=== PATIENT | female | born 1950 | race Caucasian/White ===

== ENCOUNTER 2018-01-13 12:18 | Emergency (ER) | payer MEDICAID, SELFPAY ==
[2018-01-13 12:19] VITALS: BP 185/82; PULSE 73; RESP 17; TEMP 36.6; O2SAT 93; BMI 44.6
--- NOTE | 2018-01-13 12:42 | VDLE_ITS ---
Reason For Study: pain RIGHT GSV is normal. CFV is compressible, spontaneous, phasic, competent and demonstrates normal augmentation. FV is compressible, spontaneous, phasic, competent and demonstrates normal augmentation. POP V is compressible, spontaneous, phasic, competent and demonstrates normal augmentation. T/P Trunk is compressible. PTV is compressible. RT PerV is compressible. Procedure Exam performed in department. The exam was diagnostic. A preliminary report was called and/or faxed to Dr. Markham. Interpretation Summary Deep veins of the right lower extremity are patent and compressible segmentally. There is no evidence of right lower extremity deep vein thrombosis. Valvular competence appears intact within the proximal deep venous system on the right . The right greater saphenous vein appears patent and compressible segmentally. Ordering Physician: Orville Markham Performed By: Orestes Leon RVT
--- NOTE | 2018-01-13 12:50 | RAD_ITS ---
STUDY: X-RAY - RIGHT TIBIA AND FIBULA REASON FOR EXAM: Female, 67 years old. Swelling following anterior leg injury. TECHNIQUE: 3 view(s) of the tibia and fibula were obtained. COMPARISON: None. FINDINGS: Normal visualized tibia. Normal visualized fibula. Status post total knee replacement. Soft tissue swelling. RAD/Tibia & Fibula 2 Views IMPRESSION: Soft tissue swelling. Electronically Signed: Vaughn Atkins MD at 13:24 EDT Tel [phone], Service support ,
[2018-01-13 13:10] LABS: Absolute Lymphocyte Count 2.22 X10^3/ul (0.83-4.51); Absolute Neutrophil Count 4.4 X10^3/uL (2.0-7.7); Basophil# 0.02 X10^3/uL; Basophil% 0.3 % (0-1); Eosinophil# 0.12 X10^3/uL; Eosinophils% 1.7 % (0-5); Hematocrit 44.8 % (37-47); Hemoglobin 13.7 g/dl (12.0-15.0); Lymphocyte # 2.22 X10^3/ul (4.0); Lymphocyte % 30.7 % (19-41); Mean Corp Hgb Conc 30.6 g/gl (32-36); Mean Corpuscular Hgb 28.9 pg (27.0-32.0); Mean Corpuscular Volume 94.5 fL (81-99); Mean Platelet Vol. 10.3 fl (6.2-12.0); Monocyte# 0.46 X10^3/uL; Monocyte% 6.4 % (0-10); Neutrophil % 60.9 % (47-70); POSITIVE COUNT NO; POSITIVE DIFFERENTIAL NO; POSITIVE MORPHOLOGY NO; Platelet Count 211 K/mm3 (150-450); RBC Distribution Width SD 48.2 fl (35.1-43.9); Red Blood Count 4.74 M/mm3 (4.2-5.4); White Blood Count 7.2 K/mm3 (4.4-11.0)
[2018-01-13] MEDS: Clindamycin HCl 150 MG Capsule 300 MG PO (13:12)
[2018-01-13 13:54] LABS: International Normalized Ratio 2.2; Prothrombin Time (Protime)PT. 24.4 SECONDS (11.7-14.9)
--- NOTE | 2018-01-13 14:19 | ED.VISSUMM ---
- ER Visit Summary Date of Service: 01/13/18 Chief Complaint: Right leg injury History of Present Illness: The patient is a 67 F who states that a little over week ago she slipped on a step of an ambulance caused hematoma and skin avulsion to the right anterior sánchez. She states the area was very swollen and is slowly come down. She states that there is now a scab over the skin avulsion. It has been oozing which she describes essentially as a serosanguineous fluid. She had some ecchymosis circumferentially around the leg. She notes some increased warmth. She went to urgent care today was sent to the emergency room out of concern for DVT. The patient is on Coumadin and states her INR every month is checked and is therapeutic. She denies any fevers. She is a diabetic. She has been at the wound clinic before for right leg and right ankle care. Physical Examination: Afebrile vital signs are stable Gen: Well-nourished well-developed Head: Normocephalic atraumatic Eyes: Perrl EOMI ENT: TMs clear no rhinorrhea moist mucous membranes Neck: Supple no lymphadenopathy no JVD nontender CVS: Regular rate rhythm no murmurs normal S1-S2 Respiratory: No distress clear to auscultation bilaterally chest nontender Abdomen: Soft nontender nondistended normal bowel sounds no masses Back: Nontender Extremity: Right leg shows ecchymosis circumferential from the mid sánchez down to the ankle. Anterior in the middle of this zone is a 1.5 cm oval-shaped clot. There is associated hematoma and area of erythema around it. This erythema does not westley does not change with elevation. The patient does not have any palpable cords. There is no significant increase of warmth though slightly warmer than the rest the leg. Skin: Normal color no rash Neuro: alert orientated ?3 CN II-XII intact normal strength sensation Psych: Normal affect normal mood Test Results: White count 7.2. INR 2.2. Duplex ultrasound was negative. X-ray demonstrated the surgical hardware to be in place of the ankle no air or obvious osteoma noted. Emergency Department Course and Treatment: I reviewed a wound culture from 2014 and based on this we prescribed clindamycin for the staph aureus. I advised the patient she could benefit from wound care helping to heal this leg. Impression: 1. Right leg contusion/hematoma 2. Right leg cellulitis This note was generated with Snappy shuttle dictation software. It may contain incorrect words, spelling, and punctuation that were not noted in review of the chart prior to signing ED Disposition - Plan for ED Patient: Disposition: Home or Assisted Living Chief Complaint: Wound Check Instructions: ED Infec Skin Cellulitis Prescriptions: Clindamycin HCl [Cleocin] 300 mg PO Q6H #40 cap Referrals: Marshall Baltazar, ARNP-C [Primary Care Provider] - (call to arrange follow up) Clinic,Wound [None] - (call to arrange follow up)
--- NOTE | 2018-01-13 14:28 | ED.DCSUM_ITS ---
- ER Visit Summary Date of Service: 01/13/18 Chief Complaint: Right leg injury History of Present Illness: The patient is a 67 F who states that a little over week ago she slipped on a step of an ambulance caused hematoma and skin avulsion to the right anterior sánchez. She states the area was very swollen and is slowly come down. She states that there is now a scab over the skin avulsion. It has been oozing which she describes essentially as a serosanguineous fluid. She had some ecchymosis circumferentially around the leg. She notes some increased warmth. She went to urgent care today was sent to the emergency room out of concern for DVT. The patient is on Coumadin and states her INR every month is checked and is therapeutic. She denies any fevers. She is a diabetic. She has been at the wound clinic before for right leg and right ankle care. Physical Examination: Afebrile vital signs are stable Gen: Well-nourished well-developed Head: Normocephalic atraumatic Eyes: Perrl EOMI ENT: TMs clear no rhinorrhea moist mucous membranes Neck: Supple no lymphadenopathy no JVD nontender CVS: Regular rate rhythm no murmurs normal S1-S2 Respiratory: No distress clear to auscultation bilaterally chest nontender Abdomen: Soft nontender nondistended normal bowel sounds no masses Back: Nontender Extremity: Right leg shows ecchymosis circumferential from the mid sánchez down to the ankle. Anterior in the middle of this zone is a 1.5 cm oval-shaped clot. There is associated hematoma and area of erythema around it. This erythema does not westley does not change with elevation. The patient does not have any palpable cords. There is no significant increase of warmth though slightly warmer than the rest the leg. Skin: Normal color no rash Neuro: alert orientated ?3 CN II-XII intact normal strength sensation Psych: Normal affect normal mood Test Results: White count 7.2. INR 2.2. Duplex ultrasound was negative. X- ray demonstrated the surgical hardware to be in place of the ankle no air or obvious osteoma noted. Emergency Department Course and Treatment: I reviewed a wound culture from 2014 and based on this we prescribed clindamycin for the staph aureus. I advised the patient she could benefit from wound care helping to heal this leg. Impression: 1. Right leg contusion/hematoma 2. Right leg cellulitis This note was generated with Popcorn network dictation software. It may contain incorrect words, spelling, and punctuation that were not noted in review of the chart prior to signing ED Disposition - Plan for ED Patient: Disposition: Home or Assisted Living Chief Complaint: Wound Check Instructions: ED Infec Skin Cellulitis Prescriptions: Clindamycin HCl [Cleocin] 300 mg PO Q6H #40 cap Referrals: Marshall Baltazar, EMAIL ADMINISTRATOR-C [Primary Care Provider] - (call to arrange follow up) Clinic,Wound [None] - (call to arrange follow up)
[2018-01-13 14:45] VITALS: BP 150/82; PULSE 63; RESP 16; O2SAT 95
== END 2018-01-13 14:46 | disposition home or self-care (01) ==
PROVIDERS: Emergency Provider Emergency Medicine; Family Provider Nurse Practitioner Family; PCP Nurse Practitioner Family
DX: S80.11XA Contusion of right lower leg, initial encounter (principal); L03.115 Cellulitis of right lower limb; W17.89XA Other fall from one level to another, initial encounter; Y93.9 Activity, unspecified; Y92.9 Unspecified place or not applicable; Y99.9 Unspecified external cause status; E11.40 Type 2 diabetes mellitus with diabetic neuropathy, unspecified; I10 Essential (primary) hypertension; E78.5 Hyperlipidemia, unspecified; E66.9 Obesity, unspecified; Z79.4 Long term (current) use of insulin; Z79.01 Long term (current) use of anticoagulants; Z79.899 Other long term (current) drug therapy
CPT/HCPCS: 73590; 80053; 80061; 83036; 85025; 85610; 87040; 93971; 99282; A4216

== ENCOUNTER → 2018-01-13 13:05 | Outpatient (CLI) | payer MEDICAID, SELFPAY ==
[2018-01-13 13:15] LABS: Hematocrit 44.8 % (37-47); Hemoglobin 13.7 g/dl (12.0-15.0); Mean Corp Hgb Conc 30.6 g/gl (32-36); Mean Corpuscular Hgb 28.9 pg (27.0-32.0); Mean Corpuscular Volume 94.5 fL (81-99); Red Blood Count 4.74 M/mm3 (4.2-5.4); White Blood Count 7.2 K/mm3 (4.4-11.0)
[2018-01-13 13:16] LABS: Absolute Lymphocyte Count 2.22 X10^3/ul (0.83-4.51); Absolute Neutrophil Count 4.4 X10^3/uL (2.0-7.7); Basophil# 0.02 X10^3/uL; Basophil% 0.3 % (0-1); Eosinophil# 0.12 X10^3/uL; Eosinophils% 1.7 % (0-5); Lymphocyte # 2.22 X10^3/ul (4.0); Lymphocyte % 30.7 % (19-41); Mean Platelet Vol. 10.3 fl (6.2-12.0); Monocyte# 0.46 X10^3/uL; Monocyte% 6.4 % (0-10); Neutrophil % 60.9 % (47-70); POSITIVE COUNT NO; POSITIVE DIFFERENTIAL NO; POSITIVE MORPHOLOGY NO; Platelet Count 244 K/mm3 (150-450); RBC Distribution Width SD 48.2 fl (35.1-43.9)
[2018-01-13 13:31] LABS: ALB/GLOB Ratio 0.6 RATIO (0.9-2.4); AST(SGOT) 11 U/L (15-37); Alanine Aminotransfer ALT/SGPT 13 U/L (13-56); Albumin, Serum 3.3 g/dL (3.2-5.0); Alkaline Phosphatase 79 U/L (45-117); Anion Gap 4 (5-15); BUN 29 mg/dL (7-18); BUN/Creat Ratio 16.4 RATIO (10-20); Calcium,Total 8.8 mg/dL (8.5-10.1); Chloride 108 mmol/L (98-107); Cholesterol 118 mg/dL (200); Creatinine, Serum 1.77 mg/dL (0.55-1.02); EST Glomerular Filtration Rate 31 mL/min (>60); Est Glom Filt Rate - Afr Amer 37 mL/min (>60); Globulin 5.5 g/dL (2.2-4.2); Glucose 144 mg/dL (74-106); High Density Lipoprotein 42 mg/dL; Potassium 4.6 mmol/L (3.5-5.1); Protein, Total 8.8 g/dL (6.4-8.2); Sodium Level 141 mmol/L (136-145); Triglycerides 105 mg/dL; Very Low Density Lipoprotein 21 mg/dL (5-40)
[2018-01-13 13:38] LABS: Hemoglobin A1c 7.5 % (4.2-6.3)
== END ==
PROVIDERS: Family Provider Nurse Practitioner Family; PCP Nurse Practitioner Family; Visit Provider Nurse Practitioner Family
DX: I10 Essential (primary) hypertension (principal); E11.9 Type 2 diabetes mellitus without complications; E78.5 Hyperlipidemia, unspecified
CPT/HCPCS: 80053; 80061; 83036; 85025

== ENCOUNTER 2018-02-17 14:23 | Outpatient (RCR) | payer MEDICAID, SELFPAY ==
[2018-02-17 14:48] VITALS: BP 111/77; PULSE 75; RESP 18; TEMP 37.1; BMI 46.0
--- NOTE | 2018-02-17 16:42 | HP.PCM_ITS ---
(1) Chronic renal insufficiency, stage III (moderate) Status: Chronic Current Visit: No Code(s): N18.3 - Chronic kidney disease, stage 3 (moderate) (2) Leg wound, right Status: Acute Current Visit: Yes Qualifiers: Encounter type: initial encounter Qualified Code(s): S81.801A - Unspecified open wound, right lower leg, initial encounter Code(s): S81.801A - Unspecified open wound, right lower leg, initial encounter (3) Open leg wound Status: Acute Current Visit: Yes Qualifiers: Encounter type: initial encounter Laterality: right Qualified Code(s): S81.801A - Unspecified open wound, right lower leg, initial encounter Code(s): S81.809A - Unspecified open wound, unspecified lower leg, initial encounter (4) Obesity Status: Chronic Current Visit: No Code(s): E66.9 - Obesity, unspecified (5) Hypertension Status: Chronic Current Visit: No Code(s): I10 - Essential (primary) hypertension (6) Hyperlipidemia Status: Chronic Current Visit: No Code(s): E78.5 - Hyperlipidemia, unspecified (7) Diabetes mellitus type 2 in obese Status: Chronic Current Visit: No Code(s): E11.9 - Type 2 diabetes mellitus without complications; E66.9 - Obesity, unspecified (8) Venous insufficiency (chronic) (peripheral) Status: Chronic Current Visit: Yes Code(s): I87.2 - Venous insufficiency ( chronic) (peripheral) History of Present Illness Date of Service: 02/17/18 Chief Complaint: Traumatic open wound of the right anterior tibial surface History of Wound: This is a 67-year-old diabetic female who presents with atraumatic open wound on the right anterior tibial surface. This occurred on January 10, 2018. She impacted the right anterior tibial surface against an immobile metal object, sustaining a traumatic injury. She initially had a large hematoma at this area, and subsequently developed a small open wound and cellulitis. She was evaluated the day following her injury in the emergency department, and placed on an oral antibiotic. The oral antibiotic caused gastrointestinal upset, and her primary care physician subsequently switched to another oral antibiotic, the name of which the patient does not remember. Following completion of the second antibiotic, the cellulitic changes in the right lower extremity resolved. The patient presents now with an open wound of the right anterior tibial surface. Has no history of lower extremity thrombophlebitis. Recent laboratory testing has been performed, with results as follows: White blood count 7.2, hemoglobin 13.7, hematocrit 44.8, platelets 244,000, sodium 141, potassium 4.6, chloride 108, BUN 29, creatinine 1.77, glucose 144, hemoglobin A1c 7.5, calcium 8.8, bilirubin 0.80, AST 11, ALT 13, alkaline phosphatase 79, total protein 8.8, albumin 3.3, cholesterol 118, triglycerides 105. 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 This is history is negative for myocardial infarction, congestive heart failure, cerebrovascular accident, cancer, pulmonary disease, and thyroid disease. Surgical History: total knee arthroplasty - Right; lumbar disc surgery, - Allergies/Adverse Reactions: Allergies aspirin Allergy (Unknown, Verified 02/17/18 15:22) Unknown ibuprofen Allergy (Verified 02/17/18 15:22) Unknown sulfamethoxazole [From Aprra] Allergy (Verified 02/17/18 15:22) Unknown trimethoprim [From ] Allergy (Verified 02/17/18 15:22) Unknown Home Medications: Ambulatory Orders Medication Instructions Recorded Amlodipine [Norvasc] 10 mg PO DAILY 11/08/14 Gabapentin [Neurontin] 600 mg PO TIDCM 11/08/14 Insulin Glargine [Lantus SoloStar 74 units SC QHS 11/08/14 Pen] Losartan Potassium [Cozaar] 100 mg PO DAILY 11/08/14 Sertraline HCl [Zoloft] 50 mg PO DAILY 11/08/14 Simvastatin [Zocor] 20 mg PO QHS 11/08/14 Furosemide [Lasix] 40 mg PO DAILY 03/02/15 Warfarin [Coumadin] 4 mg PO DAILY 01/13/18 ergocalciferol (vitamin D2) 50,000 50,000 unit PO QMONTH 30 Days #1 01/13/18 unit capsule linagliptin 5 mg tablet 5 mg PO DAILY 30 Days #30 01/13/18 loratadine 10 mg tablet 10 mg PO Q8H PRN PRN 30 Days #30 01/13/18 - Family History Maternal Family History: Family History (Last Updated 01/13/18 @ 12:00 by Gracie Baxter) Other Diabetes Heart disease Heart Disease Paternal Family History: Family History (Last Updated 01/13/18 @ 12:00 by Gracie Baxter) Other Diabetes Heart disease Heart Disease Sibling Family History: Family History (Last Updated 01/13/18 @ 12:00 by Gracie Baxter) Other Diabetes Heart disease Heart Disease Social History: Patient is single. 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 Smoking Status: Never smoker Tobacco Use: Non-smoker Alcohol: None Drugs: None Review of Systems Constitutional: Denies: Chills, Fever, Weight Change Eyes: Denies: Pain, Vision Change HEENT: Denies: Difficulty Hearing, Difficulty Swallowing, Sinus Congestion Cardiovascular: Denies: Chest Pain, Palpitations Respiratory: Denies: Cough, Shortness of Breath Gastrointestinal: Denies: Diarrhea, Nausea, Vomiting Genitourinary: Denies: Dysuria, Hematuria Endocrine: Denies: Heat/ Cold Intolerance, Polydipsia, Polyuria Hematologic/ Lymphatic: Denies: Easy Bruising, Easy Bleeding - Physical Exam Vital Signs Temp Pulse Resp BP 98.7 F 75 18 111/77 02/17/18 14:48 02/17/18 14:48 02/17/18 14:48 02/17/18 14:48 General: Alert, Oriented x3, Cooperative, No apparent distress, Well developed, Well nourished, - - The patient is morbidly obese HEENT: Atraumatic, PERRLA, EOMI, Normocephalic Oral: Moist Mucosa, No Gingival or Mucosal Lesions/ Ulcerations Neck: Supple, No JVD, Negative Carotid Bruits, Negative Hepatojugular Reflux, No Nodes, No Nuchal Rigidity, Trachea Midline Lungs: Clear to auscultation, Normal air movement, No rhonchi, No wheeze, No rales Cardiovascular: Regular rate, Regular Rhythm, Normal S1, Normal S2, No murmurs Abdomen: Soft, Non Tender, Non-Distended, Obese Extremities: No clubbing, No cyanosis, No edema, No Calf Tenderness, - - An open wound is noted on the right anterior tibial surface. This extends into the subcutaneous adipose tissue. There is no sign of infection or cellulitis. There is a moderate amount of nonviable and necrotic tissue. Tensions are documented elsewhere. Mild hyperpigmentation is noted on the right anterior tibial surface, suggesting the presence of chronic venous insufficiency. Skin: No rashes Wound Measurements and Assessment WC - Nurse 1 - General Ulcer Measurement Start: 02/17/18 14:48 Freq: Status: Active Protocol: Activity Type Activity Date Activity User E-Sign Co-Sign Detail Recorded Client Recorded Date Recorded By Document 02/17/18 14:48 DL [id number] 02/17/18 15:18 DL 02/17/18 14:48 Wound Center Nurse 1 [Ulcer Assessment] #5 R [place] -Current Size (cm) - Length 1.8 -Current Size (cm) - Width 0.8 -Current Size (cm) - Depth 0.1 -Total Square Cm 1.44 -Photo Taken Yes -Classification - Thickness Unclassifiable (Eschar Covered ) -Exudate Amt None Present (0 %) -Wound Margin Distinct, Outline Attached -Granulation Amt None Present (0 %) -Slough/Fibrin Yes -Necrotic Tissue Type Eschar -Structure Exposed N/A -Texture (Anastasiya-wound Skin Appearance) Localized Edema -Moisture (Anastasiya-wound Skin Appearance Dry/Scaly ) -Color (Anastasiya-wound Skin Appearance) Erythema Hemosiderin Staining -Temperature (Anastasiya-wound Skin No Abnormality Appearance) (Pt Warm) -Ulcer Cleansing Rinsed/ Irrigated with Saline -Foul Odor after Cleansing No -Anesthetic Used 4% Lidocaine Solution [Edema Assessment] -Right Calf (cm) 41.5 -Right Ankle (cm) 23 -Left Calf (cm) 42 -Left Ankle (cm) 22 - Nurse 2 - General Ulcer CM Notes Start: 02/17/18 14:48 Freq: Status: Active Protocol: Activity Type Activity Date Activity User E-Sign Co-Sign Detail Recorded Client Recorded Date Recorded By Document 02/17/18 16:12 [id number] 02/17/18 16:17 02/17/18 16:12 Wound Center Nurse 2 [Procedure/Treatment] #5 R [place] -Time 16:12 -Correct Patient Yes -Correct Side, Site, Position Yes -Correct Procedure Yes -Procedure Performed Yes -Type of Procedure Debridement -Clinical Debridement Subcutaneous -Post Debridement Size (cm) - Length 1.6 -Post Debridement Size (cm) - Width 0.9 -Post Debridement Size (cm) - Depth 0.3 -Total Square Cm 1.44 -Wound/Ulcer Outcome Not Healed -Ulcer Cleansing Not Cleansed -Foul Odor after Cleansing No -Bioengineered Tissue No -Bleeding Controlled with Pressure -Treatment Response Procedure Tolerated Well [See Physician Procedure note for Specifics] Pain Scale: 0-10 Numeric [Pain] -Is Patient Pain Free? Yes Neurological: Cranial nerves II-XII grossly intact, Neuro grossly intact Psych/Mental Status: Normal Affect, Appropriate, Alert and oriented to time, place, person, mood and affect Debridement Note Post-Debridement Measurements/Treatment WC - Nurse 2 - General Ulcer CM Notes Start: 02/17/18 14:48 Freq: Status: Active Protocol: Activity Type Activity Date Activity User E-Sign Co-Sign Detail Recorded Client Recorded Date Recorded By Document 02/17/18 16:12 [id number] 02/17/18 16:17 02/17/18 16:12 Wound Center Nurse 2 #5 R [place] -Time 16:12 -Correct Patient Yes -Correct Side, Site, Position Yes -Correct Procedure Yes -Procedure Performed Yes -Type of Procedure Debridement -Clinical Debridement Subcutaneous -Post Debridement Size (cm) - Length 1.6 -Post Debridement Size (cm) - Width 0.9 -Post Debridement Size (cm) - Depth 0.3 -Total Square Cm 1.44 -Wound/Ulcer Outcome Not Healed -Ulcer Cleansing Not Cleansed -Foul Odor after Cleansing No -Bioengineered Tissue No -Bleeding Controlled with Pressure -Treatment Response Procedure Tolerated Well Pain Scale: 0-10 Numeric Is Patient Pain Free? Yes Laterality: Right - Anterior tibial surface Type of Debridement: Excisional debridement Anesthesia Used: 4% Lidocaine Solution Depth: Down to and including healthy tissue, in the subcutaneous layer Percentage of wound debrided: 100 Instrument Used: 5mm curette Severity: Fat Layer Exposed Amount of bleeding with debridement: Mild Bleeding Controlled with: Compression and gauze Patient tolerated procedure well Assessment/Plan Active Problems (Last Updated 01/13/18 @ 11:59 by Gracie Baxter) Leg wound, right (Acute) Open leg wound (Acute) Venous insufficiency (chronic) (peripheral) (Chronic) Assessment: Morbid obesity. Diabetes mellitus type II controlled. Hypertension. Chronic kidney disease, stage III. Lipidemia. The 67-year-old female presents with a traumatic wound on the right anterior tibial surface. Plan: We are to implement the use of Polina topically to the traumatic wound on the right anterior tibial surface, which will be changed every other day. Patient has been advised to elevate her lower extremities as much as possible, to avoid the development of swelling or edema. Adequate nutrition has been encouraged. Optimization of the patient's glycemic control has been recommended. Recent laboratory studies are available, and do not appear to warrant repeat. A venous duplex examination and a noninvasive lower extremity arterial study will be scheduled for the near future. Patient is to return in 1 week for reassessment. The patient is not a smoker. Influenza vaccine was not administered today. Patient weighs 302 pounds. She stands 5 feet 8 inches tall. Her BMI is 45.9. This places her in a class III category. Weight loss has been strongly encouraged, and collaboration with her primary care physician has been recommended.
== END 2018-02-22 23:59 ==
LOC: WC 14:23
PROVIDERS: Family Provider Nurse Practitioner Family; PCP Nurse Practitioner Family; Visit Provider Surgery
DX: I87.2 Venous insufficiency (chronic) (peripheral) (principal); E11.22 Type 2 diabetes mellitus with diabetic chronic kidney disease; N18.3 Chronic kidney disease, stage 3 (moderate); E66.9 Obesity, unspecified; Z68.42 Body mass index [BMI] 45.0-49.9, adult; Z71.3 Dietary counseling and surveillance; E78.5 Hyperlipidemia, unspecified; I10 Essential (primary) hypertension; E11.40 Type 2 diabetes mellitus with diabetic neuropathy, unspecified; I12.9 Hypertensive chronic kidney disease with stage 1 through stage 4 chronic kidney disease, or unspecified chronic kidney disease; S80.11XS Contusion of right lower leg, sequela; W22.8XXS Striking against or struck by other objects, sequela
CPT/HCPCS: 11042; 99212; G0463

== ENCOUNTER → 2018-03-12 12:56 | Outpatient (CLI) | payer MEDICAID, SELFPAY ==
--- NOTE | 2018-03-12 12:57 | VDLE_ITS ---
Reason For Study: VENOUS INSUFFICIENCY RIGHT LEFT CFV is compressible, spontaneous, phasic, CFV is compressible, spontaneous, phasic, competent and demonstrates normal competent, and demonstrates normal augmentation. augmentation. FV is compressible, spontaneous, phasic, FV is compressible, spontaneous, phasic, competent and demonstrates normal competent and demonstrates normal augmentation. augmentation. POP V is compressible, spontaneous, phasic, POP V is compressible, spontaneous, phasic, competent and demonstrates normal competent and demonstrates normal augmentation. augmentation. T/P Trunk is compressible. T/P Trunk is compressible. PTV is compressible. PTV is compressible. RT PerV is compressible. LT PerV is compressible. RT GSV is compressible. Left GSV is compressible and thick walled, RT GSV at SFJ is competent. Left GSV at SFJ is competent. RT GSV above knee is competent. Left GSV above knee is competent. RT GSV below knee is competent. Left GSV below knee is competent. RT SSV is compressible. Left SSV is compressible, thick walled, and RT SSV is INCOMPETENT for greater than .5 too small to assess for competency. seconds and measures .2 x .2 cm. Procedure Exam performed in department. A preliminary report was called and/or faxed to [facility]. Interpretation Summary Deep veins of the lower extremities are bilaterally patent and compressible segmentally. There is no evidence of deep vein thrombosis on either side. Valvular competence appears intact within the proximal deep venous systems bilaterally. The greater saphenous veins appear bilaterally patent and compressible segmentally. The left greater saphenous vein demonstrates chronic vein wall thickening. Sapheno-femoral junctions are bilaterally competent . Valvular competence appears to be intact segmentally within the greater saphenous veins bilaterally. The right small saphenous vein is patent and incompetent. The left small saphenous vein is patent and compressible, but too small to assess competence. Ordering Physician: Anjum Mendoza Referring Physician: DARLINE GALARZA Performed By: Yuly Gutierrez, RDCS, RVT
--- NOTE | 2018-03-12 14:54 | LEAS ---
Arterial Study - Arterial Study Arterial Study: This is a 67-year-old female with a history of hypertension and diabetes mellitus. The patient presents with an ulceration in her lower extremity. Suspecting the presence of atherosclerotic peripheral arterial occlusive disease, the patient was brought to the noninvasive vascular laboratory at this time for the purpose of bilateral noninvasive lower extremity arterial assessment. Doppler signal assessment was used to evaluate the pulses at ankle level bilaterally. The posterior tibial and dorsalis pedis pulses were triphasic bilaterally. Segmental limb pressures were obtained bilaterally. The right calf pressure was measured at 188 mmHg. The right ankle pressure, as determined by posterior tibial pulse, was measured at 200 mmHg. The right ankle pressure, as determined by dorsalis pedis pulse, was measured at 168 mmHg. The right digital pressure was measured at 176 mmHg. The left calf pressure was measured at 175 mmHg. The left ankle pressure, as determined by posterior tibial pulse, was measured at 179 mmHg. The left ankle pressure, as determined by dorsalis pedis pulse, was measured at 173 mmHg. The left digital pressure was measured at 166 mmHg. Pulse-volume recordings were obtained bilaterally and segmentally. Waveform amplitudes appeared to be satisfactory at all levels bilaterally, including low thigh, calf, ankle, and digital levels. Resting ankle-brachial indices were calculated bilaterally. The resting right ankle-brachial index was calculated to be 1.23. The resting left ankle-brachial index was calculated to be 1.10. Digital-brachial indices were calculated bilaterally. The right digital-brachial index was calculated to be 1.08. The left digital-brachial index was calculated to be 1.02. Impression: Based upon the findings of this resting noninvasive lower extremity arterial study, there is no evidence of significant atherosclerotic peripheral arterial occlusive disease in the lower extremities bilaterally. Triphasic waveforms were noted at ankle level bilaterally. Resting ankle-brachial indices were bilaterally normal. Digital-brachial indices were also normal bilaterally. In summary, this represents a normal resting noninvasive lower extremity arterial study bilaterally.
--- NOTE | 2018-03-12 15:03 | LEAS_ITS ---
Arterial Study - Arterial Study Arterial Study: This is a 67-year-old female with a history of hypertension and diabetes mellitus. The patient presents with an ulceration in her lower extremity. Suspecting the presence of atherosclerotic peripheral arterial occlusive disease , the patient was brought to the noninvasive vascular laboratory at this time for the purpose of bilateral noninvasive lower extremity arterial assessment. Doppler signal assessment was used to evaluate the pulses at ankle level bilaterally. The posterior tibial and dorsalis pedis pulses were triphasic bilaterally. Segmental limb pressures were obtained bilaterally. The right calf pressure was measured at 188 mmHg. The right ankle pressure, as determined by posterior tibial pulse, was measured at 200 mmHg. The right ankle pressure, as determined by dorsalis pedis pulse, was measured at 168 mmHg. The right digital pressure was measured at 176 mmHg. The left calf pressure was measured at 175 mmHg. The left ankle pressure, as determined by posterior tibial pulse, was measured at 179 mmHg. The left ankle pressure, as determined by dorsalis pedis pulse, was measured at 173 mmHg. The left digital pressure was measured at 166 mmHg. Pulse-volume recordings were obtained bilaterally and segmentally. Waveform amplitudes appeared to be satisfactory at all levels bilaterally, including low thigh, calf, ankle, and digital levels. Resting ankle-brachial indices were calculated bilaterally. The resting right ankle-brachial index was calculated to be 1.23. The resting left ankle- brachial index was calculated to be 1.10. Digital-brachial indices were calculated bilaterally. The right digital- brachial index was calculated to be 1.08. The left digital-brachial index was calculated to be 1.02. Impression: Based upon the findings of this resting noninvasive lower extremity arterial study, there is no evidence of significant atherosclerotic peripheral arterial occlusive disease in the lower extremities bilaterally. Triphasic waveforms were noted at ankle level bilaterally. Resting ankle-brachial indices were bilaterally normal. Digital-brachial indices were also normal bilaterally. In summary, this represents a normal resting noninvasive lower extremity arterial study bilaterally.
== END ==
PROVIDERS: Family Provider Nurse Practitioner Family; PCP Nurse Practitioner Family; Visit Provider Surgery
DX: I87.2 Venous insufficiency (chronic) (peripheral) (principal); I73.9 Peripheral vascular disease, unspecified; L97.909 Non-pressure chronic ulcer of unspecified part of unspecified lower leg with unspecified severity
CPT/HCPCS: 93923; 93970

== ENCOUNTER 2018-03-24 13:30 | Outpatient (RCR) | payer MEDICAID, SELFPAY ==
[2018-02-23 01:17] VITALS: BP 111/77; PULSE 75; RESP 18; TEMP 37.1
[2018-03-03 13:59] VITALS: BP 168/78; PULSE 82; RESP 20; TEMP 36.6
--- NOTE | 2018-03-03 14:34 | HP.PCM_ITS ---
(1) Leg wound, right Status: Acute Current Visit: Yes Qualifiers: Encounter type: subsequent encounter Qualified Code(s): S81.801D - Unspecified open wound, right lower leg, subsequent encounter Code(s): S81.801A - Unspecified open wound, right lower leg, initial encounter (2) Open leg wound Status: Acute Current Visit: Yes Qualifiers: Encounter type: subsequent encounter Laterality: right Qualified Code(s) : S81.801D - Unspecified open wound, right lower leg, subsequent encounter Code(s): S81.809A - Unspecified open wound, unspecified lower leg, initial encounter (3) Chronic renal insufficiency, stage III (moderate) Status: Chronic Current Visit: No Code(s): N18.3 - Chronic kidney disease, stage 3 (moderate) (4) Diabetes mellitus type 2 in obese Status: Chronic Current Visit: Yes Code(s): E11.9 - Type 2 diabetes mellitus without complications; E66.9 - Obesity, unspecified (5) Diabetic neuropathy Status: Chronic Current Visit: No Code(s): E11.40 - Type 2 diabetes mellitus with diabetic neuropathy, unspecified (6) Diabetic neuropathy associated with type 2 diabetes mellitus Status: Chronic Current Visit: No Code(s): E11.40 - Type 2 diabetes mellitus with diabetic neuropathy, unspecified (7) Hyperlipidemia Status: Chronic Current Visit: No Code(s): E78.5 - Hyperlipidemia, unspecified (8) Hypertension Status: Chronic Current Visit: No Code(s): I10 - Essential (primary) hypertension (9) Obesity Status: Chronic Current Visit: Yes Qualifiers: Body mass index: BMI 45.0-49.9 Code(s): E66.9 - Obesity, unspecified (10) Venous insufficiency (chronic) (peripheral) Status: Chronic Current Visit: Yes Code(s): I87.2 - Venous insufficiency ( chronic) (peripheral) History of Present Illness Date of Service: 03/03/18 Chief Complaint: Traumatic open wound of the right anterior tibial surface History of Wound: This is a 67-year-old diabetic female who presents with a traumatic open wound on the right anterior tibial surface. This occurred on January 10, 2018. She impacted the right anterior tibial surface against an immobile metal object, sustaining a traumatic injury. She initially had a large hematoma at this area, and subsequently developed a small open wound and cellulitis. She was evaluated the day following her injury in the emergency department, and placed on an oral antibiotic. The oral antibiotic caused gastrointestinal upset, and her primary care physician subsequently switched to another oral antibiotic, the name of which the patient does not remember. Following completion of the second antibiotic, the cellulitic changes in the right lower extremity resolved. The patient presented with an open wound of the right anterior tibial surface. She has no history of lower extremity thrombophlebitis. Recent laboratory testing has been performed, with results as follows: White blood count 7.2, hemoglobin 13.7, hematocrit 44.8, platelets 244,000, sodium 141, potassium 4.6, chloride 108, BUN 29, creatinine 1.77, glucose 144, hemoglobin A1c 7.5, calcium 8.8, bilirubin 0.80, AST 11, ALT 13, alkaline phosphatase 79, total protein 8.8, albumin 3.3, cholesterol 118, triglycerides 105. 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) Diabetic neuropathy (Chronic) Obesity (Chronic) Hypertension (Chronic) Hyperlipidemia (Chronic) Diabetes mellitus type 2 in obese (Chronic) Surgical History: total knee arthroplasty - Right; lumbar disc surgery, - Allergies/Adverse Reactions: Allergies aspirin Allergy (Unknown, Verified 02/17/18 15:22) Unknown ibuprofen Allergy (Verified 02/17/18 15:22) Unknown sulfamethoxazole [From Aprra] Allergy (Verified 02/17/18 15:22) Unknown trimethoprim [From Aprra] Allergy (Verified 02/17/18 15:22) Unknown Home Medications: Ambulatory Orders Medication Instructions Recorded Amlodipine [Norvasc] 10 mg PO DAILY 11/08/14 Gabapentin [Neurontin] 600 mg PO TIDCM 11/08/14 Insulin Glargine [Lantus SoloStar 74 units SC QHS 11/08/14 Pen] Losartan Potassium [Cozaar] 100 mg PO DAILY 11/08/14 Sertraline HCl [Zoloft] 50 mg PO DAILY 11/08/14 Simvastatin [Zocor] 20 mg PO QHS 11/08/14 Furosemide [Lasix] 40 mg PO DAILY 03/02/15 Warfarin [Coumadin] 4 mg PO DAILY 01/13/18 ergocalciferol (vitamin D2) 50,000 50,000 unit PO QMONTH 30 Days #1 01/13/18 unit capsule linagliptin 5 mg tablet 5 mg PO DAILY 30 Days #30 01/13/18 loratadine 10 mg tablet 10 mg PO Q8H PRN PRN 30 Days #30 01/13/18 - Family History Maternal Family History: Family History (Last Updated 01/13/18 @ 12:00 by Gracie Baxter) Other Diabetes Heart disease Heart Disease Paternal Family History: Family History (Last Updated 01/13/18 @ 12:00 by Gracie Baxter) Other Diabetes Heart disease Heart Disease Sibling Family History: Family History (Last Updated 01/13/18 @ 12:00 by Gracie Baxter) Other Diabetes Heart disease Heart Disease Smoking Status: Never smoker Tobacco Use: Non-smoker Review of Systems Constitutional: Denies: Chills, Fever, Weight Change Eyes: Denies: Pain, Vision Change HEENT: Denies: Difficulty Hearing, Difficulty Swallowing, Sinus Congestion Cardiovascular: Denies: Chest Pain, Palpitations Respiratory: Denies: Cough, Shortness of Breath Gastrointestinal: Denies: Diarrhea, Nausea, Vomiting Genitourinary: Denies: Dysuria, Hematuria Endocrine: Denies: Heat/ Cold Intolerance, Polydipsia, Polyuria Hematologic/ Lymphatic: Denies: Easy Bruising, Easy Bleeding - Physical Exam Vital Signs Temp Pulse Resp BP 97.8 F 82 20 H 168/78 H 03/03/18 13:59 03/03/18 13:59 03/03/18 13:59 03/03/18 13:59 General: Alert, Oriented x3, Cooperative, No apparent distress, Well developed, Well nourished HEENT: Atraumatic, PERRLA, EOMI, Normocephalic Oral: Moist Mucosa Neck: No JVD Lungs: Normal air movement Abdomen: Non-Distended, Obese Extremities: No clubbing, No cyanosis, No Calf Tenderness, - - Mild swelling and edema is noted in the lower extremities bilaterally. An open wound is noted on the right anterior tibial surface. Dimensions are documented elsewhere. There is no sign of infection or cellulitis. There is a moderate amount of bioburden. Skin: No rashes Wound Measurements and Assessment WC - Nurse 1 - General Ulcer Measurement Start: 03/03/18 13:59 Freq: Status: Active Protocol: Activity Type Activity Date Activity User E-Sign Co-Sign Detail Recorded Client Recorded Date Recorded By Document 03/03/18 13:59 [id number] 03/03/18 14:02 03/03/18 13:59 Wound Center Nurse 1 [Ulcer Assessment] #5 R [place] -Combined with other wound No -Current Size (cm) - Length 1.0 -Current Size (cm) - Width 0.4 -Current Size (cm) - Depth 0.5 -Total Square Cm 0.40 -Photo Taken No -Epithelialization None Present -Tunneling No -Undermining/Tunneling No -Circular Undermining No -Exudate Amt Medium (34-66%) -Exudate Type Serosanguineous -Wound Margin Distinct, Outline Attached -Granulation Amt Large (67-100%) -Granulation Quality Red -Slough/Fibrin No -Necrosis Amt None Present (0 %) -Structure Exposed None/Limited to Skin Breakdown -Texture (Anastasiya-wound Skin Appearance) Assessed -Moisture (Anastasiya-wound Skin Appearance Assessed ) Dry/Scaly -Color (Anastasiya-wound Skin Appearance) Assessed Hemosiderin Staining -Temperature (Anastasiya-wound Skin No Abnormality Appearance) (Pt Warm) -Tenderness on Palpation (Anastasiya-wound No Skin Appearance) -Ulcer Cleansing Rinsed/ Irrigated with Saline -Foul Odor after Cleansing No -Anesthetic Used 5% Lidocaine Gel [Edema Assessment] -Lower Limb Edema Present NA Musculoskeletal: No Muscle Wasting Neurological: Cranial nerves II-XII grossly intact, Neuro grossly intact Psych/Mental Status: Normal Affect, Appropriate, Alert and oriented to time, place, person, mood and affect Debridement Note Laterality: Right - Anterior tibial surface Type of Debridement: Excisional debridement Anesthesia Used: 4% Lidocaine Solution Depth: Down to and including healthy tissue, in the subcutaneous layer Percentage of wound debrided: 100 Instrument Used: 5mm curette Severity: Fat Layer Exposed Amount of bleeding with debridement: Mild Bleeding Controlled with: Compression and gauze Assessment/Plan Active Problems (Last Updated 01/13/18 @ 11:59 by Gracie Baxter) Leg wound, right (Acute) Open leg wound (Acute) Venous insufficiency (chronic) (peripheral) (Chronic) Obesity (Chronic) Diabetes mellitus type 2 in obese (Chronic) Assessment: Morbid obesity. Diabetes mellitus type II controlled. Hypertension. Chronic kidney disease, stage III. Hyperlipidemia. This 67-year -old female presents with a traumatic wound on the right anterior tibial surface of recent origin. Plan: We are to continue the use of Polina topically to the traumatic wound on the right anterior tibial surface, which will be changed every other day. Patient has been advised to elevate her lower extremities as much as possible, to avoid the development of swelling or edema. Activity has been encouraged. Weight loss has also been recommended. Adequate nutrition has been encouraged. Optimization of the patient's glycemic control has been recommended. Recent laboratory studies are available, and do not appear to warrant repeat. A venous duplex examination and a noninvasive lower extremity arterial study were scheduled for earlier today, but the patient forgot, and did not appear. They will be rescheduled. Once the arterial status of the lower extremities is known , we will consider implementing compression to the lower extremities as appropriate. Patient is to return in 1 week for reassessment. The patient is not a smoker. Influenza vaccine was not administered today. Patient weighs 302 pounds. She stands 5 feet 8 inches tall. Her BMI is 45.9. This places her in a class III category. Weight loss has been strongly encouraged, and collaboration with her primary care physician has been recommended.
[2018-03-10 13:52] VITALS: BP 151/89; PULSE 95; RESP 16; TEMP 36.5
--- NOTE | 2018-03-10 14:54 | HP.PCM_ITS ---
(1) Leg wound, right Status: Acute Current Visit: Yes Qualifiers: Encounter type: subsequent encounter Qualified Code(s): S81.801D - Unspecified open wound, right lower leg, subsequent encounter Code(s): S81.801A - Unspecified open wound, right lower leg, initial encounter (2) Open leg wound Status: Acute Current Visit: Yes Qualifiers: Encounter type: subsequent encounter Laterality: right Qualified Code(s) : S81.801D - Unspecified open wound, right lower leg, subsequent encounter Code(s): S81.809A - Unspecified open wound, unspecified lower leg, initial encounter (3) Chronic renal insufficiency, stage III (moderate) Status: Chronic Current Visit: No Code(s): N18.3 - Chronic kidney disease, stage 3 (moderate) (4) Diabetes mellitus type 2 in obese Status: Chronic Current Visit: Yes Code(s): E11.9 - Type 2 diabetes mellitus without complications; E66.9 - Obesity, unspecified (5) Diabetic neuropathy Status: Chronic Current Visit: No Code(s): E11.40 - Type 2 diabetes mellitus with diabetic neuropathy, unspecified (6) Diabetic neuropathy associated with type 2 diabetes mellitus Status: Chronic Current Visit: No Code(s): E11.40 - Type 2 diabetes mellitus with diabetic neuropathy, unspecified (7) Hyperlipidemia Status: Chronic Current Visit: No Code(s): E78.5 - Hyperlipidemia, unspecified (8) Hypertension Status: Chronic Current Visit: No Code(s): I10 - Essential (primary) hypertension (9) Obesity Status: Chronic Current Visit: Yes Qualifiers: Body mass index: BMI 45.0-49.9 Code(s): E66.9 - Obesity, unspecified (10) Venous insufficiency (chronic) (peripheral) Status: Chronic Current Visit: Yes Code(s): I87.2 - Venous insufficiency ( chronic) (peripheral) History of Present Illness Date of Service: 03/10/18 Chief Complaint: Traumatic open wound of the right anterior tibial surface History of Wound: This is a 67-year-old diabetic female who presents with a traumatic open wound on the right anterior tibial surface. This occurred on January 10, 2018. She impacted the right anterior tibial surface against an immobile metal object, sustaining a traumatic injury. She initially had a large hematoma at this area, and subsequently developed a small open wound and cellulitis. She was evaluated the day following her injury in the emergency department, and placed on an oral antibiotic. The oral antibiotic caused gastrointestinal upset, and her primary care physician subsequently switched to another oral antibiotic, the name of which the patient does not remember. Following completion of the second antibiotic, the cellulitic changes in the right lower extremity resolved. The patient presented with an open wound of the right anterior tibial surface. She has no history of lower extremity thrombophlebitis. Recent laboratory testing has been performed, with results as follows: White blood count 7.2, hemoglobin 13.7, hematocrit 44.8, platelets 244,000, sodium 141, potassium 4.6, chloride 108, BUN 29, creatinine 1.77, glucose 144, hemoglobin A1c 7.5, calcium 8.8, bilirubin 0.80, AST 11, ALT 13, alkaline phosphatase 79, total protein 8.8, albumin 3.3, cholesterol 118, triglycerides 105. 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) Diabetic neuropathy (Chronic) Obesity (Chronic) Hypertension (Chronic) Hyperlipidemia (Chronic) Diabetes mellitus type 2 in obese (Chronic) Surgical History: total knee arthroplasty - Right; lumbar disc surgery, - Allergies/Adverse Reactions: Allergies aspirin Allergy (Unknown, Verified 02/17/18 15:22) Unknown ibuprofen Allergy (Verified 02/17/18 15:22) Unknown sulfamethoxazole [From Aprra] Allergy (Verified 02/17/18 15:22) Unknown trimethoprim [From Aprra] Allergy (Verified 02/17/18 15:22) Unknown Home Medications: Ambulatory Orders Medication Instructions Recorded Amlodipine [Norvasc] 10 mg PO DAILY 11/08/14 Gabapentin [Neurontin] 600 mg PO TIDCM 11/08/14 Insulin Glargine [Lantus SoloStar 74 units SC QHS 11/08/14 Pen] Losartan Potassium [Cozaar] 100 mg PO DAILY 11/08/14 Sertraline HCl [Zoloft] 50 mg PO DAILY 11/08/14 Simvastatin [Zocor] 20 mg PO QHS 11/08/14 Furosemide [Lasix] 40 mg PO DAILY 03/02/15 Warfarin [Coumadin] 4 mg PO DAILY 01/13/18 ergocalciferol (vitamin D2) 50,000 50,000 unit PO QMONTH 30 Days #1 01/13/18 unit capsule linagliptin 5 mg tablet 5 mg PO DAILY 30 Days #30 01/13/18 loratadine 10 mg tablet 10 mg PO Q8H PRN PRN 30 Days #30 01/13/18 - Family History Maternal Family History: Family History (Last Updated 01/13/18 @ 12:00 by Gracie Baxter) Other Diabetes Heart disease Heart Disease Paternal Family History: Family History (Last Updated 01/13/18 @ 12:00 by Gracie Baxter) Other Diabetes Heart disease Heart Disease Sibling Family History: Family History (Last Updated 01/13/18 @ 12:00 by Gracie Baxter) Other Diabetes Heart disease Heart Disease Smoking Status: Never smoker Tobacco Use: Non-smoker Review of Systems Constitutional: Denies: Chills, Fever, Weight Change Eyes: Denies: Pain, Vision Change HEENT: Denies: Difficulty Hearing, Difficulty Swallowing, Sinus Congestion Cardiovascular: Denies: Chest Pain, Palpitations Respiratory: Denies: Cough, Shortness of Breath Gastrointestinal: Denies: Diarrhea, Nausea, Vomiting Genitourinary: Denies: Dysuria, Hematuria Endocrine: Denies: Heat/ Cold Intolerance, Polydipsia, Polyuria Hematologic/ Lymphatic: Denies: Easy Bruising, Easy Bleeding - Physical Exam Vital Signs Temp Pulse Resp BP 97.7 F L 95 16 151/89 H 03/10/18 13:52 03/10/18 13:52 03/10/18 13:52 03/10/18 13:52 General: Alert, Oriented x3, Cooperative, No apparent distress, Well developed, Well nourished HEENT: Atraumatic, PERRLA, EOMI, Normocephalic Oral: Moist Mucosa Neck: No JVD Lungs: Normal air movement Abdomen: Non-Distended, Obese Extremities: No clubbing, No cyanosis, No Calf Tenderness, - - The traumatic wound on the right anterior tibial surface is larger in size. Dimensions are documented elsewhere. There is no sign of infection or cellulitis. The base of the wound is pink and healthy in appearance. There is a moderate amount of bioburden. Mild swelling is noted in the lower extremities bilaterally Skin: No rashes Wound Measurements and Assessment - Nurse 1 - General Ulcer Measurement Start: 03/03/18 13:59 Freq: Status: Active Protocol: Activity Type Activity Date Activity User E-Sign Co-Sign Detail Recorded Client Recorded Date Recorded By Document 03/10/18 13:52 [facility] [id number] 03/10/18 14:00 [facility] 03/10/18 13:52 Wound Center Nurse 1 [Ulcer Assessment] #5 R [place] -Combined with other wound No -Current Size (cm) - Length 3.4 -Current Size (cm) - Width 1.7 -Current Size (cm) - Depth 0.2 -Total Square Cm 5.78 -Photo Taken No -Epithelialization Small 1-33% -Tunneling No -Undermining/Tunneling No -Circular Undermining No -Exudate Amt Small (1-33%) -Exudate Type Serosanguineous -Wound Margin Distinct, Outline Attached -Granulation Amt Small (1-33%) -Granulation Quality Red -Slough/Fibrin Yes -Necrosis Amt Medium (34-66%) -Necrotic Tissue Type Adherent Slough -Texture (Anastasiya-wound Skin Appearance) Scarring -Moisture (Anastasiya-wound Skin Appearance Assessed ) -Color (Anastasiya-wound Skin Appearance) Erythema Hemosiderin Staining -Temperature (Anastasiya-wound Skin No Abnormality Appearance) (Pt Warm) -Tenderness on Palpation (Anastasiya-wound Yes Skin Appearance) -Ulcer Cleansing Rinsed/ Irrigated with Saline -Foul Odor after Cleansing No -Anesthetic Used 5% Lidocaine Gel - Nurse 2 - General Ulcer CM Notes Start: 03/03/18 13:59 Freq: Status: Active Protocol: Activity Type Activity Date Activity User E-Sign Co-Sign Detail Recorded Client Recorded Date Recorded By Document 03/10/18 14:39 [id number] 03/10/18 14:43 03/10/18 14:39 Wound Center Nurse 2 [Procedure/Treatment] -Time 14:39 -Correct Patient Yes -Correct Side, Site, Position Yes -Correct Procedure Yes -Procedure Performed Yes -Type of Procedure Debridement -Clinical Debridement Subcutaneous -Post Debridement Size (cm) - Length 3.9 -Post Debridement Size (cm) - Width 0.6 -Post Debridement Size (cm) - Depth 0.2 -Total Square Cm 2.34 -Wound/Ulcer Outcome Not Healed -Ulcer Cleansing Rinsed/ Irrigated with Saline -Foul Odor after Cleansing No -Bioengineered Tissue No -Topical Lidocaine (%) 5 -Bleeding Controlled with NA -Treatment Response Procedure Tolerated Well [See Physician Procedure note for Specifics] Pain Scale: 0-10 Numeric [Pain] -Is Patient Pain Free? Yes Neurological: Cranial nerves II-XII grossly intact, Neuro grossly intact Psych/Mental Status: Normal Affect, Appropriate, Alert and oriented to time, place, person, mood and affect Debridement Note Post-Debridement Measurements/Treatment WC - Nurse 2 - General Ulcer CM Notes Start: 03/03/18 13:59 Freq: Status: Active Protocol: Activity Type Activity Date Activity User E-Sign Co-Sign Detail Recorded Client Recorded Date Recorded By Document 03/03/18 14:26 [id number] 03/03/18 14:27 JS Document 03/10/18 14:39 [id number] 03/10/18 14:43 JS 03/03/18 03/10/18 14:26 14:39 Wound Center Nurse 2 #5 R [place] -Time 14:27 14:39 -Correct Patient Yes Yes -Correct Side, Site, Position Yes Yes -Correct Procedure Yes Yes -Procedure Performed Yes Yes -Type of Procedure Debridement Debridement -Clinical Debridement Subcutaneous Subcutaneous -Post Debridement Size (cm) - Length 1.1 3.9 -Post Debridement Size (cm) - Width 0.5 0.6 -Post Debridement Size (cm) - Depth 0.6 0.2 -Total Square Cm 0.55 2.34 -Wound/Ulcer Outcome Not Healed Not Healed -Ulcer Cleansing Rinsed/ Rinsed/ Irrigated with Irrigated with Saline Saline -Foul Odor after Cleansing No No -Bioengineered Tissue No No -Topical Lidocaine (%) 5 -Bleeding Controlled with NA NA -Treatment Response Procedure Procedure Tolerated Well Tolerated Well Pain Scale: 0-10 Numeric Is Patient Pain Free? Yes Yes Laterality: Right - Anterior tibial surface Type of Debridement: Excisional debridement Anesthesia Used: 4% Lidocaine Solution Depth: Down to and including healthy tissue, in the subcutaneous layer Percentage of wound debrided: 100 Instrument Used: 5mm curette Severity: Fat Layer Exposed Amount of bleeding with debridement: Mild Bleeding Controlled with: Compression and gauze Patient tolerated procedure well Assessment/Plan Active Problems (Last Updated 01/13/18 @ 11:59 by Gracie Baxter) Leg wound, right (Acute) Open leg wound (Acute) Venous insufficiency (chronic) (peripheral) (Chronic) Obesity (Chronic) Diabetes mellitus type 2 in obese (Chronic) Assessment: Morbid obesity. Diabetes mellitus type II controlled. Hypertension. Chronic kidney disease, stage III. Hyperlipidemia. This 67-year -old female presents with a traumatic wound on the right anterior tibial surface of recent origin. Plan: We are to continue the use of Polina topically to the traumatic wound on the right anterior tibial surface, which will be changed every other day. Patient has been advised to elevate her lower extremities as much as possible, to minimize swelling or edema. Activity has been encouraged. Weight loss has also been recommended. Adequate nutrition has been encouraged. Optimization of the patient's glycemic control has been recommended. Recent laboratory studies are available, and do not appear to warrant repeat. A venous duplex examination and a noninvasive lower extremity arterial study were scheduled last week, but the patient forgot, and did not appear. They will be rescheduled for Saturday, two days hence. We will await results. Once the arterial status of the lower extremities is known, we will consider implementing compression to the lower extremities as appropriate. Patient is to return in 2 weeks for reassessment. The patient is not a smoker. Influenza vaccine was not administered today. Patient weighs 302 pounds. She stands 5 feet 8 inches tall. Her BMI is 45.9. This places her in a class III category. Weight loss has been strongly encouraged, and collaboration with her primary care physician has been recommended.
[2018-03-24 13:33] VITALS: BP 143/86; PULSE 99; RESP 18; TEMP 36.9
--- NOTE | 2018-03-24 14:45 | HP.PCM_ITS ---
(1) Leg wound, right Status: Acute Current Visit: Yes Qualifiers: Encounter type: subsequent encounter Qualified Code(s): S81.801D - Unspecified open wound, right lower leg, subsequent encounter Code(s): S81.801A - Unspecified open wound, right lower leg, initial encounter (2) Open leg wound Status: Acute Current Visit: Yes Qualifiers: Encounter type: subsequent encounter Laterality: right Qualified Code(s) : S81.801D - Unspecified open wound, right lower leg, subsequent encounter Code(s): S81.809A - Unspecified open wound, unspecified lower leg, initial encounter (3) Chronic renal insufficiency, stage III (moderate) Status: Chronic Current Visit: No Code(s): N18.3 - Chronic kidney disease, stage 3 (moderate) (4) Diabetes mellitus type 2 in obese Status: Chronic Current Visit: Yes Code(s): E11.9 - Type 2 diabetes mellitus without complications; E66.9 - Obesity, unspecified (5) Diabetic neuropathy Status: Chronic Current Visit: No Code(s): E11.40 - Type 2 diabetes mellitus with diabetic neuropathy, unspecified (6) Diabetic neuropathy associated with type 2 diabetes mellitus Status: Chronic Current Visit: No Code(s): E11.40 - Type 2 diabetes mellitus with diabetic neuropathy, unspecified (7) Hyperlipidemia Status: Chronic Current Visit: No Code(s): E78.5 - Hyperlipidemia, unspecified (8) Hypertension Status: Chronic Current Visit: No Code(s): I10 - Essential (primary) hypertension (9) Obesity Status: Chronic Current Visit: Yes Qualifiers: Body mass index: BMI 45.0-49.9 Code(s): E66.9 - Obesity, unspecified (10) Venous insufficiency (chronic) (peripheral) Status: Chronic Current Visit: Yes Code(s): I87.2 - Venous insufficiency ( chronic) (peripheral) History of Present Illness Date of Service: 03/24/18 Chief Complaint: Traumatic open wound of the right anterior tibial surface History of Wound: This is a 67-year-old diabetic female who presents with a traumatic open wound on the right anterior tibial surface. This occurred on January 10, 2018. She impacted the right anterior tibial surface against an immobile metal object, sustaining a traumatic injury. She initially had a large hematoma at this area, and subsequently developed a small open wound and cellulitis. She was evaluated the day following her injury in the emergency department, and placed on an oral antibiotic. The oral antibiotic caused gastrointestinal upset, and her primary care physician subsequently switched to another oral antibiotic, the name of which the patient does not remember. Following completion of the second antibiotic, the cellulitic changes in the right lower extremity resolved. The patient presented with an open wound of the right anterior tibial surface. She has no history of lower extremity thrombophlebitis. Recent laboratory testing has been performed, with results as follows: White blood count 7.2, hemoglobin 13.7, hematocrit 44.8, platelets 244,000, sodium 141, potassium 4.6, chloride 108, BUN 29, creatinine 1.77, glucose 144, hemoglobin A1c 7.5, calcium 8.8, bilirubin 0.80, AST 11, ALT 13, alkaline phosphatase 79, total protein 8.8, albumin 3.3, cholesterol 118, triglycerides 105. 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) Diabetic neuropathy (Chronic) Obesity (Chronic) Hypertension (Chronic) Hyperlipidemia (Chronic) Diabetes mellitus type 2 in obese (Chronic) Surgical History: total knee arthroplasty - Right; lumbar disc surgery, - Allergies/Adverse Reactions: Allergies aspirin Allergy (Unknown, Verified 02/17/18 15:22) Unknown ibuprofen Allergy (Verified 02/17/18 15:22) Unknown sulfamethoxazole [From Aprra] Allergy (Verified 02/17/18 15:22) Unknown trimethoprim [From Aprra] Allergy (Verified 02/17/18 15:22) Unknown Home Medications: Ambulatory Orders Medication Instructions Recorded Amlodipine [Norvasc] 10 mg PO DAILY 11/08/14 Gabapentin [Neurontin] 600 mg PO TIDCM 11/08/14 Insulin Glargine [Lantus SoloStar 74 units SC QHS 11/08/14 Pen] Losartan Potassium [Cozaar] 100 mg PO DAILY 11/08/14 Sertraline HCl [Zoloft] 50 mg PO DAILY 11/08/14 Simvastatin [Zocor] 20 mg PO QHS 11/08/14 Furosemide [Lasix] 40 mg PO DAILY 03/02/15 Warfarin [Coumadin] 4 mg PO DAILY 01/13/18 ergocalciferol (vitamin D2) 50,000 50,000 unit PO QMONTH 30 Days #1 01/13/18 unit capsule linagliptin 5 mg tablet 5 mg PO DAILY 30 Days #30 01/13/18 loratadine 10 mg tablet 10 mg PO Q8H PRN PRN 30 Days #30 01/13/18 - Family History Maternal Family History: Family History (Last Updated 01/13/18 @ 12:00 by Gracie Baxter) Other Diabetes Heart disease Heart Disease Paternal Family History: Family History (Last Updated 01/13/18 @ 12:00 by Gracie Baxter) Other Diabetes Heart disease Heart Disease Sibling Family History: Family History (Last Updated 01/13/18 @ 12:00 by Gracie Baxter) Other Diabetes Heart disease Heart Disease Smoking Status: Never smoker Tobacco Use: Non-smoker Review of Systems Constitutional: Denies: Chills, Fever, Weight Change Eyes: Denies: Pain, Vision Change HEENT: Denies: Difficulty Hearing, Difficulty Swallowing, Sinus Congestion Cardiovascular: Denies: Chest Pain, Palpitations Respiratory: Denies: Cough, Shortness of Breath Gastrointestinal: Denies: Diarrhea, Nausea, Vomiting Genitourinary: Denies: Dysuria, Hematuria Endocrine: Denies: Heat/ Cold Intolerance, Polydipsia, Polyuria Hematologic/ Lymphatic: Denies: Easy Bruising, Easy Bleeding - Physical Exam Vital Signs Temp Pulse Resp BP 98.4 F 99 18 143/86 H 03/24/18 13:33 03/24/18 13:33 03/24/18 13:33 03/24/18 13:33 General: Alert, Oriented x3, Cooperative, No apparent distress, Well developed, Well nourished HEENT: Atraumatic, PERRLA, EOMI, Normocephalic Oral: Moist Mucosa Neck: No JVD Lungs: Normal air movement Abdomen: Non-Distended Extremities: No clubbing, No cyanosis, No Calf Tenderness, - - Minimal swelling and edema is noted in the lower extremities bilaterally. The wound on the right anterior tibial surface is small in size. It has decreased since last evaluated. Mentions are documented elsewhere. There is no sign of infection or cellulitis. The base of the wound is pink and healthy in appearance. The area surrounding the wound demonstrates chronic mild hyperpigmentation. Skin: No rashes Wound Measurements and Assessment WC - Nurse 1 - General Ulcer Measurement Start: 03/03/18 13:59 Freq: Status: Active Protocol: Activity Type Activity Date Activity User E-Sign Co-Sign Detail Recorded Client Recorded Date Recorded By Document 03/24/18 13:33 [id number] 03/24/18 13:35 03/24/18 13:33 Wound Center Nurse 1 [Ulcer Assessment] #5 R [place] -Combined with other wound No -Current Size (cm) - Length 0.3 -Current Size (cm) - Width 0.2 -Current Size (cm) - Depth 0.1 -Total Square Cm 0.06 -Date of Last Picture (Recall this 03/24/18 field) -Photo Taken Yes -Epithelialization Medium 34-66% -Tunneling No -Undermining/Tunneling No -Circular Undermining No -Exudate Amt None Present (0 %) -Wound Margin Distinct, Outline Attached -Granulation Amt Small (1-33%) -Granulation Quality [place] -Slough/Fibrin No -Necrosis Amt None Present (0 %) -Necrotic Tissue Type Adherent Slough -Structure Exposed None/Limited to Skin Breakdown -Texture (Anastasiya-wound Skin Appearance) Scarring -Moisture (Anastasiya-wound Skin Appearance Assessed ) -Color (Anastasiya-wound Skin Appearance) Assessed -Temperature (Anastasiya-wound Skin No Abnormality Appearance) (Pt Warm) -Tenderness on Palpation (Anastasiya-wound No Skin Appearance) -Ulcer Cleansing Rinsed/ Irrigated with Saline -Foul Odor after Cleansing No -Anesthetic Used 4% Lidocaine Solution WC - Nurse 2 - General Ulcer CM Notes Start: 03/03/18 13:59 Freq: Status: Active Protocol: Activity Type Activity Date Activity User E-Sign Co-Sign Detail Recorded Client Recorded Date Recorded By Document 03/24/18 14:30 [id number] 03/24/18 14:32 03/24/18 14:30 Wound Center Nurse 2 [Procedure/Treatment] -Time 14:32 -Correct Patient Yes -Correct Side, Site, Position Yes -Correct Procedure Yes -Procedure Performed Yes -Type of Procedure Debridement -Clinical Debridement Subcutaneous -Post Debridement Size (cm) - Length 0.2 -Post Debridement Size (cm) - Width 0.1 -Post Debridement Size (cm) - Depth 0.1 -Total Square Cm 0.02 -Wound/Ulcer Outcome Not Healed -Ulcer Cleansing Rinsed/ Irrigated with Saline -Foul Odor after Cleansing No -Bioengineered Tissue No -Bleeding Controlled with Pressure -Treatment Response Procedure Tolerated Well [See Physician Procedure note for Specifics] Pain Scale: 0-10 Numeric [Pain] -Is Patient Pain Free? Yes Musculoskeletal: No Muscle Wasting Neurological: Cranial nerves II-XII grossly intact, Neuro grossly intact Psych/Mental Status: Normal Affect, Appropriate, Alert and oriented to time, place, person, mood and affect Debridement Note Post-Debridement Measurements/Treatment WC - Nurse 2 - General Ulcer CM Notes Start: 03/03/18 13:59 Freq: Status: Active Protocol: Activity Type Activity Date Activity User E-Sign Co-Sign Detail Recorded Client Recorded Date Recorded By Document 03/03/18 14:26 JS [id number] 03/03/18 14:27 JS Document 03/10/18 14:39 [id number] 03/10/18 14:43 JS Document 03/24/18 14:30 [id number] 03/24/18 14:32 03/03/18 03/10/18 03/24/18 14:26 14:39 14:30 Wound Center Nurse 2 #5 R [place] -Time 14:27 14:39 14:32 -Correct Patient Yes Yes Yes -Correct Side, Site, Position Yes Yes Yes -Correct Procedure Yes Yes Yes -Procedure Performed Yes Yes Yes -Type of Procedure Debridement Debridement Debridement -Clinical Debridement Subcutaneous Subcutaneous Subcutaneous -Post Debridement Size (cm) - Length 1.1 3.9 0.2 -Post Debridement Size (cm) - Width 0.5 0.6 0.1 -Post Debridement Size (cm) - Depth 0.6 0.2 0.1 -Total Square Cm 0.55 2.34 0.02 -Wound/Ulcer Outcome Not Healed Not Healed Not Healed -Ulcer Cleansing Rinsed/ Rinsed/ Rinsed/ Irrigated with Irrigated with Irrigated with Saline Saline Saline -Foul Odor after Cleansing No No No -Bioengineered Tissue No No No -Topical Lidocaine (%) 5 -Bleeding Controlled with NA NA Pressure -Treatment Response Procedure Procedure Procedure Tolerated Well Tolerated Well Tolerated Well Pain Scale: 0-10 Numeric Is Patient Pain Free? Yes Yes Yes Laterality: Right - Anterior tibial surface Type of Debridement: Excisional debridement Anesthesia Used: 4% Lidocaine Solution Depth: Down to and including healthy tissue, in the subcutaneous layer Percentage of wound debrided: 100 Instrument Used: 5mm curette Severity: Fat Layer Exposed Amount of bleeding with debridement: Mild Bleeding Controlled with: Compression and gauze Patient tolerated procedure well Assessment/Plan Active Problems (Last Updated 01/13/18 @ 11:59 by Gracie Baxter) Leg wound, right (Acute) Open leg wound (Acute) Venous insufficiency (chronic) (peripheral) (Chronic) Obesity (Chronic) Diabetes mellitus type 2 in obese (Chronic) Assessment: Morbid obesity. Diabetes mellitus type II controlled. Hypertension. Chronic kidney disease, stage III. Hyperlipidemia. This 67-year -old female presents with a traumatic wound on the right anterior tibial surface of recent origin. Plan: We are to transition to the use of collagen hydrogel topically on the wound located on the right anterior tibial surface. We will then use Adaptic and gauze. The patient's recent vascular studies have been reviewed with the patient. Her noninvasive lower extremity arterial study is essentially normal, without evidence of significant arterial occlusive disease. Venous duplex examination reveals incompetence of the right small saphenous vein. We will implement the use of compression to the lower extremities, using SurePress, which will be applied by the patient on a daily basis. The patient is to be instructed in the appropriate means of wrapping. We will ultimately transition to the use of graduated compression stockings in several weeks. The paient has been advised to elevate her lower extremities as much as possible, to minimize swelling or edema. Activity has been encouraged. Weight loss has also been recommended. Adequate nutrition has been encouraged. Optimization of the patient's glycemic control has been recommended. Recent laboratory studies are available, and do not appear to warrant repeat. Patient is to return in 1 week for reassessment. The patient is not a smoker. Influenza vaccine was not administered today. Patient weighs 302 pounds. She stands 5 feet 8 inches tall. Her BMI is 45.9. This places her in a class III category. Weight loss has been strongly encouraged, and collaboration with her primary care physician has been recommended.
== END 2018-03-25 23:59 ==
LOC: WC 13:30
PROVIDERS: Family Provider Nurse Practitioner Family; PCP Nurse Practitioner Family; Visit Provider Surgery
DX: S80.11XS Contusion of right lower leg, sequela (principal); W22.8XXS Striking against or struck by other objects, sequela; I87.2 Venous insufficiency (chronic) (peripheral); E78.5 Hyperlipidemia, unspecified; E11.40 Type 2 diabetes mellitus with diabetic neuropathy, unspecified; E11.22 Type 2 diabetes mellitus with diabetic chronic kidney disease; N18.2 Chronic kidney disease, stage 2 (mild); I12.9 Hypertensive chronic kidney disease with stage 1 through stage 4 chronic kidney disease, or unspecified chronic kidney disease; Z68.42 Body mass index [BMI] 45.0-49.9, adult; Z71.3 Dietary counseling and surveillance; E66.01 Morbid (severe) obesity due to excess calories
CPT/HCPCS: 11042

== ENCOUNTER 2018-03-31 09:21 | Inpatient (IN) | payer MEDICARE, SELFPAY ==
[2018-03-31] VITALS (16 sets, daily range): BP systolic 133–170; BP diastolic 68–104; PULSE 69–102; RESP 15–24; TEMP 36.6–36.8; O2SAT 65–95; BMI 46.2
--- NOTE | 2018-03-31 09:36 | EKG12_ITS ---
Test Reason : SOB Blood Pressure : / mmHG Vent. Rate : 085 BPM Atrial Rate : 085 BPM P-R Int : 226 ms QRS Dur : 094 ms QT Int : 348 ms P-R-T Axes : 063 039 082 degrees QTc Int : 414 ms Sinus rhythm with 1st degree A-V block Low voltage QRS (LIMB LEADS) Confirmed by ROSEANN OSUNA, NOEMÍ ([id number]), assistant editor JEET MACIEL ([id number]) on 04/02/2018 10:05:15 AM Referred By: KACEY/WEI Confirmed By:NOEMÍ WHITFIELD MD
--- NOTE | 2018-03-31 09:36 | RAD_ITS ---
STUDY: X-RAY CHEST REASON FOR EXAM: Female, 67 years old. Shortness of breath TECHNIQUE: Single AP portable view of the chest. COMPARISON: 11/15/2014 FINDINGS: Cardiac monitoring leads overlie the chest. The lungs are underinflated but clear. There is no demonstrated pleural abnormality. Normal size heart. Normal mediastinum and ray. Normal visualized pulmonary arteries. Normal visualized aortic arch and descending thoracic aorta. Normal visualized thoracic spine. Normal visualized ribs, clavicles, and shoulders. There is no demonstrated abnormality of the visualized soft tissue structures of the upper abdomen. RAD/Chest 1 View (Portable) IMPRESSION: Low lung volumes, without focal consolidation. Electronically Signed: Jonathan Robert DO at 11:45 EDT Tel , Service support ,
--- NOTE | 2018-03-31 09:39 | ED.VISSUMM ---
- ER Visit Summary Date of Service: 03/31/18 Chief Complaint: Shortness of breath History of Present Illness: The patient is a 67 F who complains of shortness of breath. She has had this for 2 days. It is getting worse. It is worse when she exerts herself. She has had a cough with productive white sputum. No rhinorrhea, fevers or chest pain. She states she used her inhaler but it was not working. She has a history of asthma. She also has a history sleep apnea. Patient states that she used to wear home oxygen but she does not anymore. When she arrived at the emergency department she was 60% on room air Physical Examination: Vital signs reviewed. HEENT exam unremarkable. Heart is regular rate and rhythm without murmurs. Lungs have rhonchorous breath sounds with some wheezing bilaterally. Abdomen is soft and nontender. Extremities reveal 1+ symmetrical edema to the knees bilaterally. Skin exam normal. Neurologic exam normal. Test Results: EKG was sinus rhythm with rate of 85. Chest x-ray reveals low lung volumes but nothing acute. Hemoglobin 11. Creatinine is 2.28 which is slightly above her baseline of 2. Troponin normal. D-dimer 0.85. BNP 104 Emergency Department Course and Treatment: Patient was given a dose of Lasix. I feel that this is most likely due to CHF. She has peripheral edema consistent with that. I called for admission to the hospital but the admitting doctor wanted to do a VQ scan to rule out a PE. This was negative. The patient will be sent to the floor and a CT of the chest will be obtained there. Treatment Plan: [] Disposition: Admit Impression: Acute respiratory failure with hypoxia, CHF This note was generated with [employer] dictation software. It may contain incorrect words, spelling, and punctuation that were not noted in review of the chart prior to signing ED Disposition - Plan for ED Patient: Chief Complaint: Shortness of Breath Referrals: Marshall Baltazar, [facility] [Primary Care Provider] -
[2018-03-31] MEDS: Albuterol 2.5 MG/3 ML VIAL.NEB. INHALATION ×3 (09:43→10:31)
[2018-03-31] MEDS: Ipratropium/Albuterol Sulfate 3 ML AMPUL.NEB INHALATION (09:43)
[2018-03-31 09:59] LABS: Absolute Lymphocyte Count 1.22 X10^3/ul (0.83-4.51); Absolute Neutrophil Count 3.8 X10^3/uL (2.0-7.7); Basophil# 0.02 X10^3/uL; Basophil% 0.4 % (0-1); Eosinophil# 0.07 X10^3/uL; Eosinophils% 1.2 % (0-5); Hematocrit 38.6 % (37-47); Lymphocyte # 1.22 X10^3/ul (4.0); Lymphocyte % 21.4 % (19-41); Mean Corp Hgb Conc 28.5 g/gl (32-36); Mean Corpuscular Hgb 28.5 pg (27.0-32.0); Mean Platelet Vol. 10.5 fl (6.2-12.0); Monocyte# 0.54 X10^3/uL; Monocyte% 9.5 % (0-10); Neutrophil # 3.83 X10^3/uL (2.7-7.7); Neutrophil % 67.1 % (47-70); Platelet Count 175 K/mm3 (150-450); RBC Distribution Width CV 16.7 % (11.6-14.6); Red Blood Count 3.86 M/mm3 (4.2-5.4); White Blood Count 5.7 K/mm3 (4.4-11.0)
[2018-03-31 10:00] LABS: POSITIVE COUNT NO; POSITIVE DIFFERENTIAL NO; POSITIVE MORPHOLOGY NO
[2018-03-31 10:11] LABS: Anion Gap 4 (5-15); BUN 35 mg/dL (7-18); BUN/Creat Ratio 15.4 RATIO (10-20); Chloride 104 mmol/L (98-107); Creatinine, Serum 2.28 mg/dL (0.55-1.02); EST Glomerular Filtration Rate 23 mL/min (>60); Est Glom Filt Rate - Afr Amer 28 mL/min (>60); Estimated Creatinine Clearance 23.92 ml/min; Glucose 417 mg/dL (74-106); Potassium 5.3 mmol/L (3.5-5.1); Sodium Level 136 mmol/L (136-145)
[2018-03-31 10:21] LABS: Allen Test POS; Base Excess 0 mmol/L (-2 to +2); Bicarbonate 27.2 mmol/L (22-26); Blood Gas Specimen Type ART; O2 Delivery Device Nasal Can; PO2 92 mmHG (75-100); SITE L Radial; SO2 95 % (95-99); Time Given 1010; Total Carbon Dioxide 29 mmol/L; pCO2 60.9 mmHg (35-45); pH 7.26 (7.35-7.45)
[2018-03-31 10:22] LABS: D-Dimer Quantitative (DVT/PE) 0.85 FEU/ug/m (0.27-0.49)
--- NOTE | 2018-03-31 10:23 | ED.RN ---
ddimer 0.[address] .. [address] wyatt notified
[2018-03-31 10:28] LABS: BNP,B-Type NATRIURETIC PEPTIDE 104.6 pg/mL (0-100)
--- NOTE | 2018-03-31 12:55 | NM_ITS ---
CLINICAL: 67-year-old female with reported history of shortness of breath. VENTILATION-PERFUSION LUNG SCINTIGRAPHY COMPARISON: Plain film chest radiograph 03/31/2018 FINDINGS: The patient was administered 50.0 mCi 99m Tc DTPA aerosol. The aerosol ventilation study demonstrates heterogeneous ventilation in the bilateral lung jose without corresponding radiographic changes visualized on review of plain film chest x-ray dated 03/31/2018. Central clumping of the aerosol is identified in the bilateral hemithorax. Following the intravenous administration of 5.7 mCi of 99m Tc MAA, the pulmonary perfusion study reveals matching non-uniform perfusion in the right and left lungs of less significant severity than the previously defined ventilation pattern. No moderate subsegmental or large segmental ventilation-perfusion mismatches are noted. NM/Lung Scan Vent/Perf IMPRESSION: 1. VERY LOW PROBABILITY FOR PULMONARY EMBOLUS (<10%) 99m Tc DTPA aerosol ventilation / 99m Tc MAA pulmonary perfusion imaging examination, according to PIOPED II interpretive criteria with regard given to the presence of > 2 ventilation-perfusion matches without corresponding radiographic changes. (Sotsman et al, Radiology 246: 941, 2008 Sonile et al, J Nucl Med 49: 1741, 2008). 2. Central clumping of the aerosol may be secondary to obstructive airway mechanics and or clinical tachypnea. Electronically Signed: Marshall Garza DO at 15:22 EDT Tel , Service support ,
[2018-03-31] MEDS: Furosemide 40 MG/4 ML Vial IV ×2 (12:58→22:08)
--- NOTE | 2018-03-31 15:51 | NURSING ---
106 ACUTE HYPOXIC RESP FAILUE BUD
--- NOTE | 2018-03-31 16:27 | HP.PCM_ITS ---
Problem List (1) CHF (congestive heart failure) Status: Acute (2) ESPERANZA (acute kidney injury) Status: Acute (3) Paroxysmal A-fib Status: Chronic (4) Chronic renal insufficiency, stage III (moderate) Status: Chronic (5) Leg wound, right Status: Chronic Qualifiers: (6) Obesity Status: Chronic (7) Hypertension Status: Chronic (8) Hyperlipidemia Status: Chronic (9) Diabetes mellitus type 2 in obese Status: Chronic History of Present Illness Date of Admission: 03/31/18 Chief Complaint: SOB The patient is a 67 year old F with a hx of DMt2, morbid obesity, paroxysmal Afib, htn, hld, CKDIII, questionable hx of COPD, who presents to the ER from home with progressively worsening SOB over the last 3 days. She has been wheezy , has a cough that is occasionally productive, and is more SOB with exertion. She has had significant increase in swelling of her BL LE. She does have a chronic RLE wound that she sees the wound clinic for but this is healing well. She has not noticed a significant change in her weight, but does note both PND and orthopnea. She has not been able to lay flat in years 2/2 SOB. She denies CP , palpitations, dizziness, LH. She does not have a hx of CHF. She was hospitalized last year for pna after which she was on short term O2, but no longer uses O2 at home. She states she has also seen Dr. Campos, Isaías, and Diogo in the past but does not follow up with them. She says she was told at one point that she probably has COPD and thinks she had lung tests done at some point, though she does not know the results. She also takes warfarin for afib. 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) Diabetic neuropathy (Chronic) Obesity (Chronic) Hypertension (Chronic) Hyperlipidemia (Chronic) Diabetes mellitus type 2 in obese (Chronic) Medical History: Medical History (Last Updated 01/13/18 @ 11:59 by Gracie Baxter) Arthritis M19.90 Diabetes E11.9 Hay fever J30.1 Knee pain M25.569 Hypertension I10 Allergies aspirin Allergy (Unknown, Verified 03/31/18 09:32) Unknown ibuprofen Allergy (Verified 03/31/18 09:32) Unknown sulfamethoxazole [From Septra] Allergy (Verified 03/31/18 09:32) Unknown trimethoprim [From Aprra] Allergy (Verified 03/31/18 09:32) Unknown Home Medications: Ambulatory Orders Medication Instructions Recorded Gabapentin [Neurontin] 600 mg PO TIDCM 11/08/14 Insulin Glargine [Lantus SoloStar 74 units SC QHS 11/08/14 Pen] Losartan Potassium [Cozaar] 100 mg PO DAILY 11/08/14 Sertraline HCl [Zoloft] 50 mg PO DAILY 11/08/14 Simvastatin [Zocor] 20 mg PO QHS 11/08/14 Warfarin [Coumadin] 2.5 mg PO DAILY 01/13/18 ergocalciferol (vitamin D2) 50,000 50,000 unit PO QMONTH 30 Days #1 01/13/18 unit capsule linagliptin 5 mg tablet 5 mg PO DAILY 30 Days #30 01/13/18 loratadine 10 mg tablet 10 mg PO DAILY 30 Days #30 01/13/18 Albuterol IH (ProAir) [Proair Hfa] 2 inh INHALATION Q4H PRN PRN 03/31/18 Amlodipine [Norvasc] 5 mg PO DAILY 03/31/18 Sodium Chloride [Saline Nasal Mist] 1 spray NASAL BID 03/31/18 Theragesic Cream 1 applicatio TOPICAL TID PRN 03/31/18 Surgical History: Surgical History (Last Updated 01/13/18 @ 12:00 by Gracie Baxter) History of knee replacement procedure of right knee Z96.651 Hx of section Z98.891 Surgical History: total knee arthroplasty - Right; lumbar disc surgery, - Smoking Status: Never smoker Tobacco Use: Secondhand - *Family History Maternal Family History: Family History (Last Updated 01/13/18 @ 12:00 by Gracie Baxter) Other Diabetes Heart disease History Items: Heart Disease Paternal Family History: Family History (Last Updated 01/13/18 @ 12:00 by Gracie Baxter) Other Diabetes Heart disease History Items: Heart Disease Sibling Family History: Family History (Last Updated 01/13/18 @ 12:00 by Gracie Baxter) Other Diabetes Heart disease History Items: Heart Disease Review of Systems Constitutional: Reports: Weakness, Fatigue. Denies: Chills, Fever, Weight Change HEENT: Denies: Head Aches, Sinus Congestion, Sinus Drainage Cardiovascular: Reports: Edema, Orthopnea, Paroxysmal Noc. Dyspnea. Denies: Chest Pain, Chest Pressure, Chest Tightness, Light Headedness, Palpitations, Syncope Respiratory: Reports: Cough, Shortness of Breath, Shortness of breath at rest, Shortness of breath upon exertion, Sputum production, Wheezing Gastrointestinal: Denies: Abdominal Pain, Nausea, Vomiting Genitourinary: Denies: Dysuria Musculoskeletal: Denies: Joint Pain, Joint Tenderness Skin: Denies: Rash, Wounds Neurological: Denies: Numbness, Tingling, Focal weakness Psychiatric: Denies: Anxiety, Depression, Homicidal Ideations, Suicidal Ideations Hematologic/ Lymphatic: Denies: Easy Bruising, Easy Bleeding VTE Information - Inpt Only VTE Present on Admission: No VTE Mechan Device Prophylaxis: None VTE Pharm Prophylaxis ordered?: Yes Patient Problems: Active and Suspected Problems (Last Updated 01/13/18 @ 11:59 by Gracie Baxter) ESPERANZA (acute kidney injury) (Acute) CHF (congestive heart failure) (Acute) - Physical Exam General: Alert, Oriented x3, Cooperative HEENT: Atraumatic, PERRLA, EOMI, Normocephalic Neck: Supple, No JVD, Negative Carotid Bruits Lungs: Clear to auscultation, Normal air movement Cardiovascular: Regular rate, No murmurs Abdomen: Bowel Sounds Present, Soft, Non Tender Extremities: Capillary Refill Less than 3 Seconds, Edema - 2-3 + pitting edema BLE Skin: No rashes, No breakdown Musculoskeletal: No Tenderness to Palpation of Joints or Extremities Neurological: Cranial nerves II-XII grossly intact Psych/Mental Status: Normal Affect, Appropriate, Alert and oriented to time, place, person, mood and affect Vital Signs Temp Pulse Resp BP Pulse Ox 97.8 F 69 18 149/77 H 95 03/31/18 09:23 03/31/18 15:11 03/31/18 15:11 03/31/18 15:11 03/31/18 15:11 Assessment/Plan All Active Problems (Last Updated 01/13/18 @ 11:59 by Gracie Baxter) Open leg wound (Acute) ESPERANZA (acute kidney injury) (Acute) CHF (congestive heart failure) (Acute) Right leg pain (Acute) Cellulitis of right lower extremity (Acute) Acute respiratory failure with hypoxia (Acute) 1. Acute hypoxic respiratory failure 2/2 Acute CHF - no prior hx. Start IV lasix. Obtain echo. EKG NSR. Maintin on tele. Continue losartan, consider starting beta andres. Provide albuterol and duonebs, fluid and Na restrict, TIFFANIE wrap legs. D dimer elevated - VQ scan negative. She was satting 79's on presentation - currently requiring 6lpm. pH 7.26. Pulmonary medicine consulted. BNP 104.6. Trop neg. Has seen Andres and Isaías in the past. 2. Hx Paroxysmal Afib - check INR. continue warfarin. Not on any rate limiting agents. 3. ESPERANZA - with elevated K. Should decrease with lasix and albuterol. Has seen Diogo in the past. 4. Poorly controlled DMt2 - continue lantus, add SSI, may need mealtime insulin added. Check a1c. Hold linagliptin. 5. HTN - somewhat elevated. 6. HLD - simvastatin. 7. Suspected COPD - states she was told she might have this in the past 8. Suspected DIEGO - at least 3 risk factors. Needs o/p psg. May need bipap tonight. 9. Morbid obesity - environmental marketing representative consult. Carb and sodium restrict. 10. Chronic RLE wound - continue current dressings. F/u wound center as o/p. DVT ppx: heparin This patient was seen by Robe Mera PA-C under the supervision of Dr. Lauren.
--- NOTE | 2018-03-31 16:29 | CPS ---
Patient placed on nasal cannula at 6lpm.
--- NOTE | 2018-03-31 16:36 | CT_ITS ---
STUDY: CT CHEST WITHOUT CONTRAST REASON FOR EXAM: Female, 67 years old. Cough RADIATION DOSAGE (If Supplied By Facility): CTDIvol = ( 24.18 ) mGy, DLP = ( 896.78 ) mGycm TECHNIQUE: Transaxial imaging was performed without the administration of intravenous contrast material. Multiplanar coronal and sagittal images were reformatted. Individualized dose optimization techniques were used for this CT. COMPARISON: 2017 chest x-ray, November 11, 2014 CT scan chest FINDINGS: There is a small to moderate right pleural effusion. There is a small left pleural effusion. There are scattered areas of groundglass opacity and vascular engorgement. There is trace peripheral opacity in the right middle lobe and lingula suggesting probable atelectasis. There is mild cardiac enlargement. There is a nonspecific right-sided peritracheal lymph node measuring 8.6 mm. There is a lymph node measuring 8.1 mm. Normal hilar regions. Normal unenhanced pulmonary arteries. There is partial calcification of the aorta. There are multi-level degenerative changes of the thoracic spine. The partially visualized multiple gallstones in the gallbladder. CT/Chest without Contrast IMPRESSION: Findings are most consistent with vascular congestion/CHF. There are no findings to suggest interseptal thickening, honeycombing or fibrotic change. Cholelithiasis. Degenerative change thoracic spine. Electronically Signed: Christine Root MD at 20:47 EDT Tel , Service support ,
--- NOTE | 2018-03-31 16:36 | ECHOD_ITS ---
Reason For Study: DYSPNEA Procedure This was a 2D Doppler, Color Flow transthoracic echocardiogram. The exam was of poor technical quality due to body habitus. The study was technically difficult. Contrast injection was performed. Exam performed portable in patient room. Left Ventricle Normal LV size. Left ventricular systolic function is normal. The estimated ejection fraction is 65 %. There is evidence of diastolic dysfunction. No regional wall motion abnormalities noted. Right Ventricle Normal RV size. Normal systolic function. Atria The left atrium is mildly enlarged. Normal right atrium. No doppler evidence for ASD. Mitral Valve There is no mitral annular calcification. Normal mitral valve. Mild (1+) eccentric mitral valve insufficiency. Tricuspid Valve Normal tricuspid valve. Trivial tricuspid valve insufficiency. Right ventricular systolic pressure estimated to be 46 mmHg. Aortic Valve Trisinus/trileaflet aortic valve. Normal aortic valve. Pulmonic Valve The pulmonic valve is not well visualized. Great Vessels Normal sized aortic root. Pericardium/Pleural No pericardial effusion. Medication Diluted definity 3ml given slow IV push to enhance endocardial definition. MMode/2D Measurements & Calculations LVIDd: 4.8 cm IVSd: 1.3 cm LVOT diam: 2.0 cm LVIDs: 2.8 cm LVPWd: 1.2 cm LVOT area: 3.3 cm2 RVDd: 4.0 cm FS: 41.0 % Ao root diam: 3.3 cm LAV(MOD-bp): 51.5 ml LVAd ap4: 28.4 cm2 LAV(MOD-bp) Indexed: 21.6 ml/m2 EDV(MOD-sp4): 89.0 ml LAV(MOD-sp2): 46.4 ml EDV(sp4-el): 90.5 ml LAV(MOD-sp4): 57.8 ml LVAs ap4: 15.4 cm2 ESV(MOD-sp4): 32.2 ml ESV(sp4-el): 33.4 ml EF(MOD-sp4): 63.8 % EF(sp4-el): 63.1 % SV(MOD-sp4): 56.8 ml SV(sp4-el): 57.1 ml LA A4 area: 20.9 cm2 RA A4 area: 17.9 cm2 Time Measurements MV dec time: 0.33 sec Doppler Measurements & Calculations MV E max gallo: 77.9 cm/sec Lat Peak E' Gallo: 10.5 cm/sec Med Peak E' Gallo: 7.4 cm/sec MV A max gallo: 92.6 cm/sec E/E' lat: 7.4 E/E' med: 10.6 MV E/A: 0.84 Ao V2 max: 174.3 cm/sec LV V1 max: 106.2 cm/sec SV(LVOT): 73.6 ml Ao max P.2 mmHg LV V1 max P.5 mmHg Ao V2 mean: 122.8 cm/sec LV V1 mean P.5 mmHg Ao mean P.7 mmHg LV V1 mean: 72.9 cm/sec Ao V2 VTI: 33.6 cm LV V1 VTI: 22.3 cm LILI(I,D): 2.2 cm2 LILI(V,D): 2.0 cm2 PA V2 max: 99.8 cm/sec TR max gallo: 321.7 cm/sec TR max P.5 mmHg Interpretation Summary The study was technically difficult. Contrast injection was performed. Left ventricular systolic function is normal. The estimated ejection fraction is 65 %. The left atrium is mildly enlarged. Mild (1+) eccentric mitral valve insufficiency. Trivial tricuspid valve insufficiency. Right ventricular systolic pressure estimated to be 46 mmHg. There is evidence of diastolic dysfunction. Ordering Physician: Casper Lauren Referring Physician: DARLINE GALARZA Performed By: Yuly Gutierrez RDCS, RVT
[2018-03-31 17:19] LABS: International Normalized Ratio 1.8; Prothrombin Time (Protime)PT. 20.8 SECONDS (11.7-14.9)
[2018-03-31] MEDS: Insulin Lispro 100 UNIT/ML INSULN.PEN SC ×2 (17:24→22:27)
[2018-03-31] MEDS: Gabapentin 600 MG Tablet PO (17:24)
[2018-03-31 17:30] LABS: Bedside Glucose 332 mg/dL (70-110)
[2018-03-31] MEDS: Sodium Chloride 0.65% 1 SPRAY SPRAY.BTL NASAL (22:07)
[2018-03-31] MEDS: Atorvastatin Calcium 10 MG Tablet PO (22:08)
[2018-03-31] MEDS: 0.9% NaCl Peripheral Flush Adult/Peds IV (22:09)
[2018-03-31 22:36] LABS: Bedside Glucose 389 mg/dL (70-110)
[2018-04-01] VITALS (13 sets, daily range): BP systolic 129–151; BP diastolic 47–78; PULSE 70–84; RESP 12–20; TEMP 36.8–37.9; O2SAT 92–94
[2018-04-01] MEDS: 0.9% NaCl Peripheral Flush Adult/Peds IV ×2 (05:07→21:17)
[2018-04-01] MEDS: Acetaminophen 325 MG Tablet 650 MG PO (05:07)
[2018-04-01] MEDS: Furosemide 40 MG/4 ML Vial IV ×3 (05:07→21:11)
[2018-04-01 05:55] LABS: Absolute Lymphocyte Count 1.45 X10^3/ul (0.83-4.51); Absolute Neutrophil Count 5.5 X10^3/uL (2.0-7.7); Basophil# 0.02 X10^3/uL; Basophil% 0.3 % (0-1); Eosinophil# 0.15 X10^3/uL; Eosinophils% 1.9 % (0-5); Lymphocyte # 1.45 X10^3/ul (4.0); Lymphocyte % 18.4 % (19-41); Mean Corp Hgb Conc 28.9 g/gl (32-36); Mean Corpuscular Hgb 29.2 pg (27.0-32.0); Mean Corpuscular Volume 100.8 fL (81-99); Mean Platelet Vol. 10.3 fl (6.2-12.0); Monocyte# 0.71 X10^3/uL; Platelet Count 168 K/mm3 (150-450); RBC Distribution Width CV 16.6 % (11.6-14.6); RBC Distribution Width SD 58.9 fl (35.1-43.9); Red Blood Count 3.77 M/mm3 (4.2-5.4); White Blood Count 7.9 K/mm3 (4.4-11.0)
[2018-04-01 06:00] LABS: International Normalized Ratio 1.9; Prothrombin Time (Protime)PT. 22.2 SECONDS (11.7-14.9)
[2018-04-01 06:05] LABS: POSITIVE COUNT NO; POSITIVE DIFFERENTIAL NO; POSITIVE MORPHOLOGY NO
[2018-04-01 06:35] LABS: Anion Gap 5 (5-15); BUN 38 mg/dL (7-18); BUN/Creat Ratio 16.1 RATIO (10-20); Calcium,Total 8.1 mg/dL (8.5-10.1); Chloride 105 mmol/L (98-107); Creatinine, Serum 2.36 mg/dL (0.55-1.02); EST Glomerular Filtration Rate 22 mL/min (>60); Est Glom Filt Rate - Afr Amer 27 mL/min (>60); Estimated Creatinine Clearance 23.11 ml/min; Glucose 197 mg/dL (74-106); Potassium 5.6 mmol/L (3.5-5.1); Sodium Level 141 mmol/L (136-145)
[2018-04-01 06:55] LABS: Bedside Glucose 201 mg/dL (70-110)
[2018-04-01] MEDS: Insulin Lispro 100 UNIT/ML INSULN.PEN SC ×4 (09:47→21:10)
[2018-04-01] MEDS: amLODIPine 5 MG Tablet PO (09:49)
[2018-04-01] MEDS: Gabapentin 600 MG Tablet PO ×3 (09:51→17:40)
[2018-04-01] MEDS: Sertraline 50 MG Tablet PO (09:51)
[2018-04-01] MEDS: LINAGLIPTIN 5 MG TABLET PO (09:51)
[2018-04-01] MEDS: Losartan Potassium 100 MG Tablet PO (09:51)
[2018-04-01] MEDS: Sodium Chloride 0.65% 1 SPRAY SPRAY.BTL NASAL ×2 (09:52→21:14)
--- NOTE | 2018-04-01 12:29 | PCM.CONS.GEN ---
Reason for Consult Date of Consultation: 04/01/18 History of Present Illness: The patient is a 67 year old F pleasant female who presented to the emergency department on March 31, 2018 with complaints of shortness of breath that have been ongoing for 2 days. Initially on presentation she was on room air and found to have an oxygen saturation of 60%. Chest x-ray was completed and found no acute cardiopulmonary process, there was a concern for pulmonary embolism therefore a VQ scan was completed which also was negative (low probability of pulmonary embolism). Initial laboratories revealed slightly elevated BNP at 104.6, BUN and creatinine slightly elevated as well at 35/2.28. D-dimer also elevated at 0.85. INR found to be 1.8 despite the fact that the patient is on daily Coumadin. The patient reported wheezing and a cough that was productive of yellow sputum. She had been using her albuterol nebulizer, which typically provided her with good relief of her shortness of breath, but most recently was not found to be as effective. She was previously treated with supplemental oxygen years ago but currently had no supplemental oxygen available at home. She was placed on 6 L of nasal cannula oxygen to maintain appropriate saturations. CT of the chest was then completed and found to be positive for a right pleural effusion and a small left pleural effusion with scattered groundglass opacities consistent with pulmonary congestion/CHF. She was treated with IV Lasix and transferred to the progressive care unit. She reports a history of obstructive sleep apnea, polysomnogram and titration study were completed back in 2014. At that time she was prescribed BiPAP 22/16 cm of water. She does not currently have her machine and has not used it in several years. Back in 2014 she was also discharged on supplemental oxygen but not currently using stated I did not need it anymore. She carries a history of asthma, denies ever being a smoker. She was exposed to secondhand smoke. Pulmonary function test from back in 2014 documented a severe restrictive ventilatory defect with a symmetric reduction in diffusing capacity. She is not currently on any maintenance inhalers. Echocardiogram from back in 2014 did show stage I diastolic dysfunction, did not estimate RVSP. The patient reports that she follows a low-sodium diet. She does not add any salt. She is compliant with diuretics. She does have difficulties with lower extremity edema at times. She denies any chest pain or palpitations. 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) Diabetic neuropathy (Chronic) Obesity (Chronic) Hypertension (Chronic) Hyperlipidemia (Chronic) Diabetes mellitus type 2 in obese (Chronic) Medical History: Medical History (Last Updated 01/13/18 @ 11:59 by Gracie Baxter) Arthritis M19.90 Diabetes E11.9 Hay fever J30.1 Knee pain M25.569 Hypertension I10 Allergies aspirin Allergy (Unknown, Verified 03/31/18 09:32) Unknown ibuprofen Allergy (Verified 03/31/18 09:32) Unknown sulfamethoxazole [From Aprra] Allergy (Verified 03/31/18 09:32) Unknown trimethoprim [From ] Allergy (Verified 03/31/18 09:32) Unknown Home Medications: Ambulatory Orders Medication Instructions Recorded Gabapentin [Neurontin] 600 mg PO TIDCM 11/08/14 Insulin Glargine [Lantus SoloStar 74 units SC QHS 11/08/14 Pen] Losartan Potassium [Cozaar] 100 mg PO DAILY 11/08/14 Sertraline HCl [Zoloft] 50 mg PO DAILY 11/08/14 Simvastatin [Zocor] 20 mg PO QHS 11/08/14 Warfarin [Coumadin] 2.5 mg PO DAILY 01/13/18 ergocalciferol (vitamin D2) 50,000 50,000 unit PO QMONTH 30 Days #1 01/13/18 unit capsule linagliptin 5 mg tablet 5 mg PO DAILY 30 Days #30 01/13/18 loratadine 10 mg tablet 10 mg PO DAILY 30 Days #30 01/13/18 Albuterol IH (ProAir) [Proair Hfa] 2 inh INHALATION Q4H PRN PRN 03/31/18 Amlodipine [Norvasc] 5 mg PO DAILY 03/31/18 Sodium Chloride [Saline Nasal Mist] 1 spray NASAL BID 03/31/18 Theragesic Cream 1 applicatio TOPICAL TID PRN 03/31/18 Surgical History: Surgical History (Last Updated 01/13/18 @ 12:00 by Gracie Baxter) History of knee replacement procedure of right knee Z96.651 Hx of section Z98.891 Surgical History: total knee arthroplasty - Right; lumbar disc surgery, - Smoking Status: Never smoker Tobacco Use: Secondhand - *Family History Maternal Family History: Family History (Last Updated 01/13/18 @ 12:00 by Gracie Baxter) Other Diabetes Heart disease History Items: Heart Disease Paternal Family History: Family History (Last Updated 01/13/18 @ 12:00 by Gracie Baxter) Other Diabetes Heart disease History Items: Heart Disease Sibling Family History: Family History (Last Updated 01/13/18 @ 12:00 by Gracie Baxter) Other Diabetes Heart disease History Items: Heart Disease Review of Systems Constitutional: Reports: Fatigue. Denies: Anorexia, Chills, Fever, Night Sweats, Malaise, Weakness Eyes: Denies: Blurred vision, Pain, Vision Change HEENT: Denies: Difficulty Hearing, Head Aches Cardiovascular: Reports: Edema, Orthopnea. Denies: Chest Pain, Chest Pressure, Chest Tightness, Palpitations Respiratory: Reports: Shortness of breath upon exertion, Wheezing. Denies: Cough, Sputum production Gastrointestinal: Denies: Abdominal Pain Skin: Denies: Rash Neurological: Denies: Change in Speech, Difficulty swallowing, Numbness, Tingling Endocrine: Denies: Change in Body Habitus, Heat/ Cold Intolerance Hematologic/ Lymphatic: Denies: Adenopathy Patient Problems: Active and Suspected Problems (Last Updated 01/13/18 @ 11:59 by Gracie Baxter) ESPERANZA (acute kidney injury) (Acute) CHF (congestive heart failure) (Acute) Subjective: This patient is restful in bed, has no complaints of pain at this time. She does report some shortness of breath on exertion, reports that typically at home she uses albuterol nebulizer for shortness of breath and wheezing which gives her temporary relief. Objective: Laboratories and imaging reviewed: CT of the chest confirmed right pleural effusion and a small left pleural effusion with scattered groundglass opacities, consistent with pulmonary congestion/CHF. ABG was reviewed and showed a pH of 7.26 and a PCO2 of 60 with a PO2 of 92 while on 6 L of supplemental nasal cannula oxygen. Echocardiogram pending. - Physical Exam General: Alert, Oriented x3, Cooperative, No apparent distress HEENT: Atraumatic Oral: Moist Mucosa, - - Mallampati III Neck: Supple, No JVD, No Nodes, Trachea Midline Lungs: Diminished, Wheezes Cardiovascular: Regular rate, Regular Rhythm, Normal S1, Normal S2, No murmurs Abdomen: Bowel Sounds Present, Soft, Non Tender, Obese Extremities: No clubbing, No cyanosis, Edema - 1+ bilateral lower extremity Skin: No rashes, No breakdown Musculoskeletal: No Tenderness to Palpation of Joints or Extremities Lymphatic: No Cervical, Supraclavicular, or Inguinal Adenopathy Neurological: Cranial nerves II-XII grossly intact, Motor Exam 5/5 strength throughout Psych/Mental Status: Normal Affect, Appropriate Vital Signs Temp Pulse Resp BP Pulse Ox 98.3 F 70 16 129/78 H 93 04/01/18 09:42 04/01/18 11:25 04/01/18 09:42 04/01/18 09:42 04/01/18 09:42 Oxygen Flow Rate (L/min) 6 Oxygen Delivery Method Nasal Cannula Weight: 294 lb 5.074 oz Body Mass Index (BMI) 46.2 Intake and Output for Last 24 Hours 03/30/18 03/31/18 04/01/18 23:59 23:59 23:59 Intake Total 240 / 240 760 / 760 Balance 240 / 240 760 / 760 Laboratory Tests Past 24 Hrs 04/01/18 04/01/18 04/01/18 05:28 05:28 05:28 WBC 7.9 RBC 3.77 L Hgb 11.0 L Hct 38.0 MCV 100.8 H MCH 29.2 MCHC 28.9 L RDW 16.6 H RDW Differential 58.9 H Plt Count 168 MPV 10.3 Immature Gran % (Auto) 0.400 Neut % (Auto) 70.0 Lymph % (Auto) 18.4 L [place] % (Auto) 9.0 Eos % (Auto) 1.9 Baso % (Auto) 0.3 Absolute Neuts (auto) 5.5 Absolute Lymphs (auto) 1.45 Total Counted Not Reportable PT 22.2 H INR 1.9 Sodium 141 Potassium 5.6 H Chloride 105 Carbon Dioxide 31.0 Anion Gap 5 BUN 38 H Creatinine 2.36 H Estim Creat Clear Calc 23.11 Est GFR (MDRD) Af Amer 27 L Est GFR (MDRD) Non-Af 22 L BUN/Creatinine Ratio 16.1 Glucose 197 H Calcium 8.1 L POC Glucose 04/01/18 03/31/18 03/31/18 06:51 22:12 17:21 POC Glucose 201 H 389 H 332 H Assessment/Plan All Active Problems (Last Updated 01/13/18 @ 11:59 by Gracie Baxter) Open leg wound (Acute) ESPERANZA (acute kidney injury) (Acute) CHF (congestive heart failure) (Acute) Right leg pain (Acute) Cellulitis of right lower extremity (Acute) Acute respiratory failure with hypoxia (Acute) RECOMMENDATIONS: 1. Evaluate echocardiogram that is pending 2. Continue diuresis per hospitalist 3. Add BiPAP for rescue and sleep 4. Agree with cardiac low-sodium diet 5. Accurate I&O's would be helpful 6. Continue supplemental oxygen as needed to maintain saturations 89-92% 7. Repeat ABG once able to maintain adequate saturation on room air 8. Add albuterol nebs 9. Follow-up in the pulmonary outpatient office for repeat PFTs 10. Discharged on BiPAP to treat chronic respiratory failure 11. Walking oximetry prior to discharge 1. Acute on chronic respiratory failure: Continue supplement oxygen as needed to maintain saturations 89-92%. Encourage BiPAP for rescue and during sleep. Set patient up with BiPAP 22/16 cm of water prior to discharge. Patient's blood gas with an elevated CO2 and normal pH indicate chronic respiratory failure with hypercarbia, BiPAP support is necessary to treat. Please complete a pulmonary stress test (walking oximetry) prior to discharge to determine the amount of supplemental oxygen needed during ambulation. 2. Asthma: This patient carries a diagnosis of asthma and reports good response from albuterol nebulizers at home. Previous PFTs do not support a diagnosis of asthma, will provide her with albuterol nebulizers at this time given her wheezing on exam. Plan to repeat pulmonary function test after the patient has recovered from this acute period. Follow-up in the outpatient setting to determine appropriate inhalers if any. 3. Morbid obesity: Patient may be suffering from obesity hypoventilation syndrome, will evaluate further with an ABG while on room air and saturating appropriately. Complicates exam, plan, care and prognosis. Encourage weight loss. 4. Chronic renal insufficiency, stage III: May impact the effectiveness of diuretics, may prolong acute illness. Defer management to hospitalist. 5. Paroxysmal atrial fibrillation: Maintain rate control, defer to hospitalist. Continue anticoagulation, optimize INR. 6. Diabetes type 2/hypertension/hyperlipidemia: Comorbid illness complicates exam, plan, care and prognosis. Resume all home medications as tolerates. Defer management to hospitalist. Thank you for the consultation and the opportunity to participate in this patient's care. This note was generated with [employer] dictation software. It may contain incorrect words, spelling, and punctuation that were not noted in checking the note before signing.
[2018-04-01 12:45] LABS: Bedside Glucose 210 mg/dL (70-110)
--- NOTE | 2018-04-01 13:03 | CASEMGMT ---
Face to Face with patient for initial transition planning/care coordination assessment. RN KARLIE introduced self and role at [facility], pt voices understanding and consents to assessment at this time. Pt is sitting up in bed in no distress at this time. Pt is A/O x4 at this time and answers all questions appropriately at this time. Care providers, pharmacy, and demographics verified. See attached link. Pt voices no further concerns/needs at this time. Advised pt to ask for CM if any further questions/concerns/needs arise, voices understanding. CM to follow for any further discharge planning/needs. PLAN: [place] [facility]
--- NOTE | 2018-04-01 15:03 | CPS ---
aerosol set up and Bipap placed in room. Pt eating lunch. 91% on 6 lpm. No signs of distress or S.O.B noted
[2018-04-01 17:35] LABS: Bedside Glucose 204 mg/dL (70-110)
[2018-04-01] MEDS: Albuterol 2.5 MG/3 ML VIAL.NEB. INHALATION (19:40)
--- NOTE | 2018-04-01 20:20 | PCM.PROGNOTE ---
Patient Problems: Active and Suspected Problems (Last Updated 01/13/18 @ 11:59 by Gracie Baxter) ESPERANZA (acute kidney injury) (Acute) CHF (congestive heart failure) (Acute) Subjective: Patient was seen and examined today, it is difficult to tell how much urine output the patient is having, I am suspicious that she is incontinent. Patient was seen by pulmonary medicine and pulmonary medicine feels that the patient's hypoxia is secondary to congestive heart failure, echocardiogram was obtained today and the patient has a normal ejection fraction of 65% and moderate pulmonary hypertension. At this time, I have ordered the patient to have a Wayne to keep track of her urine output, she will remain on her present dose of Lasix, her oxygen requirement today is the same as it was yesterday-6 L via nasal cannula. Pulmonary medicine states that the patient had been prescribed BiPAP in the past but she was noncompliant with this-patient admitted such today to me. Patient will be placed on BiPAP tonight - Physical Exam General: Alert, Oriented x3, Cooperative, No apparent distress, Well developed, Well nourished HEENT: Atraumatic, PERRLA, EOMI, Normocephalic Oral: Moist Mucosa Neck: Supple, No JVD, No Nuchal Rigidity, Trachea Midline, Thyroid Normal Size and Texture Lungs: Clear to auscultation, No rhonchi, No wheeze, Diminished Cardiovascular: Regular rate, Regular Rhythm, Normal S1, Normal S2, No murmurs, PMI Normal, No rub noted, No Gallop Abdomen: Bowel Sounds Present, Soft, Non Tender, Non-Distended, No hernias noted Extremities: No clubbing, No cyanosis, Capillary Refill Less than 3 Seconds, Edema - +1-2 mm pitting edema both lower legs Skin: No rashes, No breakdown Musculoskeletal: No Tenderness to Palpation of Joints or Extremities Neurological: Cranial nerves II-XII grossly intact, Neuro grossly intact, Muscle tone normal, Sensory exam intact to light touch and pain Psych/Mental Status: Normal Affect, Appropriate, Alert and oriented to time, place, person, mood and affect Vital Signs Temp Pulse Resp BP Pulse Ox 98.6 F 76 20 H 140/70 H 92 04/01/18 14:44 04/01/18 19:41 04/01/18 19:41 04/01/18 14:44 04/01/18 14:44 Oxygen Flow Rate (L/min) 6 Oxygen Delivery Method Nasal Cannula Weight: 133.5 kg Body Mass Index (BMI) 46.2 Intake and Output for Last 24 Hours 03/30/18 03/31/18 04/01/18 23:59 23:59 23:59 Intake Total 240 / 240 1000 / 1000 Balance 240 / 240 1000 / 1000 Laboratory Tests Past 24 Hrs 04/01/18 04/01/18 04/01/18 05:28 05:28 05:28 WBC 7.9 RBC 3.77 L Hgb 11.0 L Hct 38.0 MCV 100.8 H MCH 29.2 MCHC 28.9 L RDW 16.6 H RDW Differential 58.9 H Plt Count 168 MPV 10.3 Immature Gran % (Auto) 0.400 Neut % (Auto) 70.0 Lymph % (Auto) 18.4 L [place] % (Auto) 9.0 Eos % (Auto) 1.9 Baso % (Auto) 0.3 Absolute Neuts (auto) 5.5 Absolute Lymphs (auto) 1.45 Total Counted Not Reportable PT 22.2 H INR 1.9 Sodium 141 Potassium 5.6 H Chloride 105 Carbon Dioxide 31.0 Anion Gap 5 BUN 38 H Creatinine 2.36 H Estim Creat Clear Calc 23.11 Est GFR (MDRD) Af Amer 27 L Est GFR (MDRD) Non-Af 22 L BUN/Creatinine Ratio 16.1 Glucose 197 H Calcium 8.1 L POC Glucose 04/01/18 04/01/18 04/01/18 17:19 12:35 06:51 POC Glucose 204 H 210 H 201 H 03/31/18 22:12 POC Glucose 389 H Medical Necessity - Tobacco Use Smoking Status: Never smoker Tobacco Use: Secondhand Assessment/Plan All Active Problems (Last Updated 01/13/18 @ 11:59 by Gracie Baxter) Open leg wound (Acute) ESPERANZA (acute kidney injury) (Acute) CHF (congestive heart failure) (Acute) Right leg pain (Acute) Cellulitis of right lower extremity (Acute) Acute respiratory failure with hypoxia (Acute) #1 Acute respiratory failure-secondary to right-sided heart failure-Wayne was placed today, we will continue to monitor urine output with IV Lasix, pulmonary medicine is seeing patient #2 acute kidney injury on a backdrop of chronic kidney disease stage III-labs will be monitored #3 hypertension #4 paroxysmal atrial fibrillation-currently in sinus #5 obstructive sleep apnea-noncompliant with medical treatment #6 super morbid obesity #7 generalized debility secondary to acute respiratory failure and morbid obesity-PT and OT are seeing patient Code Visit Inpatient E&M: 26757 Subs Hosp L2
[2018-04-01] MEDS: Atorvastatin Calcium 10 MG Tablet PO (21:13)
[2018-04-01 21:30] LABS: Bedside Glucose 156 mg/dL (70-110)
[2018-04-02] VITALS (17 sets, daily range): BP systolic 111–131; BP diastolic 48–57; PULSE 66–96; RESP 12–21; TEMP 36.8–37.2; O2SAT 92–96
[2018-04-02] MEDS: Furosemide 40 MG/4 ML Vial IV ×3 (05:34→22:10)
[2018-04-02] MEDS: 0.9% NaCl Peripheral Flush Adult/Peds IV ×3 (05:35→22:09)
[2018-04-02 06:32] LABS: International Normalized Ratio 2.4; Prothrombin Time (Protime)PT. 25.9 SECONDS (11.7-14.9)
[2018-04-02] MEDS: Albuterol 2.5 MG/3 ML VIAL.NEB. INHALATION ×3 (06:55→21:04)
[2018-04-02 07:40] LABS: Bedside Glucose 72 mg/dL (70-110)
--- NOTE | 2018-04-02 07:40 | NURSING ---
Pt noted to be dropping glasses this shift. Her hands will raise up to take a drink and then they will fall abruptly. Pt states this has been going on for about a week.
[2018-04-02 08:08] LABS: Anion Gap 5 (5-15); BUN 42 mg/dL (7-18); BUN/Creat Ratio 18.1 RATIO (10-20); Calcium,Total 8.5 mg/dL (8.5-10.1); Chloride 107 mmol/L (98-107); Creatinine, Serum 2.32 mg/dL (0.55-1.02); EST Glomerular Filtration Rate 22 mL/min (>60); Est Glom Filt Rate - Afr Amer 27 mL/min (>60); Estimated Creatinine Clearance 23.51 ml/min; Glucose 69 mg/dL (74-106); Potassium 5.3 mmol/L (3.5-5.1); Sodium Level 143 mmol/L (136-145)
--- NOTE | 2018-04-02 08:21 | PN_ITS ---
Patient Problems: Active and Suspected Problems (Last Updated 01/13/18 @ 11:59 by Gracie Baxter) ESPERANZA (acute kidney injury) (Acute) CHF (congestive heart failure) (Acute) Subjective: Patient did well overnight. No acute issues were reported. Patient was able to tolerate BiPAP and woke this morning feeling more alert. Patient feels little subjective improvement in overall respiratory condition. Patient is currently saturating 94% on 6 L nasal cannula. No epistaxis has been reported. Objective: Echocardiogram read as EF of 65% with mildly enlarged left atrium with a pulmonary artery systolic pressure of 46 mmHg. - Physical Exam General: Alert, Oriented x3, Cooperative, No apparent distress, - - Morbidly obese. Speaking in full sentences. HEENT: Atraumatic, PERRLA, EOMI, Normocephalic, - - No scleral icterus or injection noted. No breakdown at the BiPAP interface Oral: Moist Mucosa, No Gingival or Mucosal Lesions/ Ulcerations Neck: Supple, No JVD, No Nodes, Trachea Midline Lungs: No rhonchi, No wheeze, No rales, Diminished, - - Symmetric expansion. No dullness to percussion. Cardiovascular: Normal S1, Normal S2, No murmurs, Irregular Rate, No rub noted, No Gallop Abdomen: Bowel Sounds Present, Soft, Non Tender, Non-Distended, Obese Extremities: No cyanosis, Capillary Refill Less than 3 Seconds, Edema Skin: No rashes, No breakdown Musculoskeletal: No Tenderness to Palpation of Joints or Extremities, No Muscle Wasting Lymphatic: No Cervical, Supraclavicular, or Inguinal Adenopathy Neurological: Cranial nerves II-XII grossly intact, Neuro grossly intact, Sensory exam intact to light touch and pain Psych/Mental Status: Alert and oriented to time, place, person, mood and affect Vital Signs Temp Pulse Resp BP Pulse Ox 37.0 C 78 21 H 115/57 L 94 04/02/18 02:42 04/02/18 07:05 04/02/18 07:05 04/02/18 02:42 04/02/18 08:00 Oxygen Flow Rate (L/min) 6 Oxygen Delivery Method Nasal Cannula Weight: 150.7 kg Body Mass Index (BMI) 46.2 Intake and Output for Last 24 Hours 03/31/18 04/01/18 04/02/18 23:59 23:59 23:59 Intake Total 240 / 240 1257 / 1257 80 / 80 Output Total 700 / 700 180 / 180 Balance 240 / 240 557 / 557 -100 / -100 Laboratory Tests Past 24 Hrs 04/02/18 04/02/18 05:20 05:20 PT 25.9 H INR 2.4 Sodium 143 Potassium 5.3 H Chloride 107 Carbon Dioxide 31.0 Anion Gap 5 BUN 42 H Creatinine 2.32 H Estim Creat Clear Calc 23.51 Est GFR (MDRD) Af Amer 27 L Est GFR (MDRD) Non-Af 22 L BUN/Creatinine Ratio 18.1 Glucose 69 L Calcium 8.5 POC Glucose 04/02/18 04/01/18 04/01/18 07:29 20:53 17:19 POC Glucose 72 156 H 204 H 04/01/18 12:35 POC Glucose 210 H Medical Necessity - Tobacco Use Smoking Status: Never smoker Tobacco Use: Secondhand Assessment/Plan All Active Problems (Last Updated 01/13/18 @ 11:59 by Gracie Baxter) Open leg wound (Acute) ESPERANZA (acute kidney injury) (Acute) CHF (congestive heart failure) (Acute) Right leg pain (Acute) Cellulitis of right lower extremity (Acute) Acute respiratory failure with hypoxia (Acute) RECOMMENDATIONS: 1. Continue with diuresis until renal function worsens 2. BiPAP with all sleep and rescue as needed during the day 3. Continue teaching of low-sodium diet 4. Oxygen as tolerated to maintain saturations 89-92% 5. Follow-up in the pulmonary outpatient office for repeat PFTs 6. Discharged on BiPAP to treat chronic respiratory failure 7. Walking oximetry prior to discharge IMPRESSIONS: 1. Acute on chronic hypoxic respiratory failure: Continue supplement oxygen as needed to maintain saturations 89-92%. Encourage BiPAP for rescue and during sleep. Set patient up with BiPAP 22/16 cm of water prior to discharge. Patient's blood gas with an elevated CO2 and normal pH indicate chronic respiratory failure with hypercarbia, BiPAP support is necessary to treat. Please complete a pulmonary stress test (walking oximetry) prior to discharge to determine the amount of supplemental oxygen needed during ambulation. Patient does have pulmonary hypertension on echocardiogram. Clinical suspicion for higher pressures, but windows will not be very good on echocardiogram given patient's body habitus. Patient is aware that compliance with supplemental oxygen and BiPAP is essential moving forward. 2. Asthma: This patient carries a diagnosis of asthma and reports good response from albuterol nebulizers at home. Previous PFTs do not support a diagnosis of asthma, will provide her with albuterol nebulizers at this time given her wheezing on exam. Plan to repeat pulmonary function test after the patient has recovered from this acute period. Follow-up in the outpatient setting to determine appropriate inhalers if any. 3. Morbid obesity: Patient may be suffering from obesity hypoventilation syndrome, will evaluate further with an ABG while on room air and saturating appropriately. Complicates exam, plan, care and prognosis. Encourage weight loss. 4. Chronic renal insufficiency, stage III: May impact the effectiveness of diuretics, may prolong acute illness. Defer management to hospitalist. 5. Paroxysmal atrial fibrillation: Maintain rate control, defer to hospitalist. Continue anticoagulation, optimize INR. 6. Diabetes type 2/hypertension/hyperlipidemia: Comorbid illness complicates exam, plan, care and prognosis. Resume all home medications as tolerates. Defer management to hospitalist. Thank you for the consultation and the opportunity to participate in this patient's care. This note was generated with [email or web address] dictation software. It may contain incorrect words, spelling, and punctuation that were not noted in checking the note before signing. Code Visit Inpatient E&M: 21218 Subs Hosp L3
[2018-04-02] MEDS: Sodium Chloride 0.65% 1 SPRAY SPRAY.BTL NASAL ×2 (08:59→22:12)
[2018-04-02] MEDS: amLODIPine 5 MG Tablet PO (09:00)
[2018-04-02] MEDS: Losartan Potassium 100 MG Tablet PO (09:00)
[2018-04-02] MEDS: Sertraline 50 MG Tablet PO (09:00)
[2018-04-02] MEDS: LINAGLIPTIN 5 MG TABLET PO (09:00)
[2018-04-02] MEDS: Gabapentin 600 MG Tablet PO ×3 (09:00→17:01)
[2018-04-02 11:35] LABS: Bedside Glucose 171 mg/dL (70-110)
[2018-04-02] MEDS: Insulin Lispro 100 UNIT/ML INSULN.PEN SC (12:52)
[2018-04-02 15:26] LABS: Bedside Glucose 63 mg/dL (70-110)
[2018-04-02 15:26] LABS: Bedside Glucose 68 mg/dL (70-110)
[2018-04-02 16:26] LABS: Bedside Glucose 146 mg/dL (70-110)
--- NOTE | 2018-04-02 17:54 | PCM.PROGNOTE ---
Patient Problems: Active and Suspected Problems (Last Updated 01/13/18 @ 11:59 by Gracie Baxter) ESPERANZA (acute kidney injury) (Acute) CHF (congestive heart failure) (Acute) Subjective: Patient was seen and examined today, she does not appear to be short of breath, she continues to require high flow oxygen however. - Physical Exam General: Alert, Oriented x3, Cooperative, No apparent distress, Well developed HEENT: Atraumatic, PERRLA, EOMI, Normocephalic Oral: Moist Mucosa Neck: Supple, No JVD, Negative Carotid Bruits, No Nuchal Rigidity, Trachea Midline, Thyroid Normal Size and Texture Lungs: Clear to auscultation, No rhonchi, No wheeze, No rales, Diminished Cardiovascular: Regular rate, Regular Rhythm, Normal S1, Normal S2, No murmurs, No Ectopic Activity Abdomen: Bowel Sounds Present, Soft, Non Tender, Non-Distended, Obese, No hernias noted Extremities: No clubbing, No cyanosis, Capillary Refill Less than 3 Seconds, Edema - Generalized pretibial edema is noted bilaterally Skin: No rashes, No breakdown Musculoskeletal: No Tenderness to Palpation of Joints or Extremities Neurological: Cranial nerves II-XII grossly intact, Neuro grossly intact, Sensory exam intact to light touch and pain Psych/Mental Status: Normal Affect, Appropriate, Alert and oriented to time, place, person, mood and affect Vital Signs Temp Pulse Resp BP Pulse Ox 99.0 F 76 18 112/48 L 92 04/02/18 14:40 04/02/18 15:08 04/02/18 14:40 04/02/18 14:40 04/02/18 14:40 Oxygen Flow Rate (L/min) 6 Oxygen Delivery Method Nasal Cannula Weight: 150 kg Body Mass Index (BMI) 46.2 Intake and Output for Last 24 Hours 03/31/18 04/01/18 04/02/18 23:59 23:59 23:59 Intake Total 240 / 240 1257 / 1257 800 / 800 Output Total 700 / 700 1155 / 1155 Balance 240 / 240 557 / 557 -355 / -355 Laboratory Tests Past 24 Hrs 04/02/18 04/02/18 05:20 05:20 PT 25.9 H INR 2.4 Sodium 143 Potassium 5.3 H Chloride 107 Carbon Dioxide 31.0 Anion Gap 5 BUN 42 H Creatinine 2.32 H Estim Creat Clear Calc 23.51 Est GFR (MDRD) Af Amer 27 L Est GFR (MDRD) Non-Af 22 L BUN/Creatinine Ratio 18.1 Glucose 69 L Calcium 8.5 POC Glucose 04/02/18 04/02/18 04/02/18 16:19 11:22 07:29 POC Glucose 146 H 171 H 72 04/02/18 04/02/18 04/01/18 07:04 06:51 20:53 POC Glucose 68 L 63 L 156 H Medical Necessity - Tobacco Use Smoking Status: Never smoker Tobacco Use: Secondhand Assessment/Plan All Active Problems (Last Updated 01/13/18 @ 11:59 by Gracie Baxter) Open leg wound (Acute) ESPERANZA (acute kidney injury) (Acute) CHF (congestive heart failure) (Acute) Right leg pain (Acute) Cellulitis of right lower extremity (Acute) Acute respiratory failure with hypoxia (Acute) #1 Acute on chronic hypoxic respiratory failure-secondary to right-sided heart failure-continue IV diuresis #2 acute kidney injury on a backdrop of chronic kidney disease stage III-labs will be monitored, creatinine appears to be stable at this time #3 hypertension #4 paroxysmal atrial fibrillation-currently in sinus #5 obstructive sleep apnea-noncompliant with medical treatment #6 super morbid obesity #7 generalized debility secondary to acute respiratory failure and morbid obesity-PT and OT are seeing patient Code Visit Inpatient E&M: 86797 Subs Hosp L2
[2018-04-02] MEDS: Atorvastatin Calcium 10 MG Tablet PO (22:10)
[2018-04-02 22:36] LABS: Bedside Glucose 145 mg/dL (70-110)
[2018-04-03] VITALS (17 sets, daily range): BP systolic 114–145; BP diastolic 45–68; PULSE 65–81; RESP 12–20; TEMP 36.3–37.1; O2SAT 85–97
[2018-04-03] MEDS: Furosemide 40 MG/4 ML Vial IV ×3 (05:22→21:04)
[2018-04-03] MEDS: 0.9% NaCl Peripheral Flush Adult/Peds IV ×2 (05:22→21:06)
[2018-04-03] MEDS: Albuterol 2.5 MG/3 ML VIAL.NEB. INHALATION ×3 (07:14→18:52)
[2018-04-03 07:35] LABS: Bedside Glucose 59 mg/dL (70-110)
[2018-04-03 07:35] LABS: Bedside Glucose 63 mg/dL (70-110)
[2018-04-03 07:46] LABS: Anion Gap 7 (5-15); BUN 50 mg/dL (7-18); BUN/Creat Ratio 20.6 RATIO (10-20); Calcium,Total 8.4 mg/dL (8.5-10.1); Chloride 105 mmol/L (98-107); Creatinine, Serum 2.43 mg/dL (0.55-1.02); EST Glomerular Filtration Rate 21 mL/min (>60); Est Glom Filt Rate - Afr Amer 26 mL/min (>60); Estimated Creatinine Clearance 22.45 ml/min; Glucose 50 mg/dL (74-106); Potassium 4.8 mmol/L (3.5-5.1); Sodium Level 143 mmol/L (136-145)
--- NOTE | 2018-04-03 07:55 | PN_ITS ---
Patient Problems: Active and Suspected Problems (Last Updated 01/13/18 @ 11:59 by Gracie Baxter) ESPERANZA (acute kidney injury) (Acute) CHF (congestive heart failure) (Acute) Subjective: Patient did well overnight. Patient was able to get to the chair without complication. Patient did wear BiPAP overnight and feels increased energy this morning. Patient with diuresis overnight. Subjectively, patient feels improved compared to previous. Patient still requiring 6 L nasal cannula at rest. - Physical Exam General: Alert, Oriented x3, Cooperative, No apparent distress, - - Patient much more interactive and awake compared to previous HEENT: Atraumatic, PERRLA, EOMI, Normocephalic, - - No scleral icterus or injection noted. Oral: Moist Mucosa, No Gingival or Mucosal Lesions/ Ulcerations Neck: Supple, No JVD, No Nodes, Trachea Midline Lungs: No rhonchi, No wheeze, No rales, Diminished, - - Symmetric expansion. No dullness to percussion. Cardiovascular: Regular rate, Regular Rhythm, Normal S1, Normal S2, No murmurs, No rub noted, No Gallop Abdomen: Bowel Sounds Present, Soft, Non Tender, Non-Distended, Obese Extremities: No clubbing, No cyanosis, Capillary Refill Less than 3 Seconds, Edema - Continues to improve Skin: No rashes, No breakdown, - - Venous stasis changes to lower extremities Musculoskeletal: No Tenderness to Palpation of Joints or Extremities Lymphatic: No Cervical, Supraclavicular, or Inguinal Adenopathy Neurological: Cranial nerves II-XII grossly intact, Neuro grossly intact, Motor Exam 5/5 strength throughout Psych/Mental Status: Alert and oriented to time, place, person, mood and affect Vital Signs Temp Pulse Resp BP Pulse Ox 36.5 C L 70 18 121/65 H 93 04/03/18 05:30 04/03/18 06:55 04/03/18 05:30 04/03/18 05:30 04/03/18 05:30 Oxygen Flow Rate (L/min) 6 Oxygen Delivery Method Nasal Cannula Weight: 149.6 kg Body Mass Index (BMI) 46.2 Intake and Output for Last 24 Hours 04/01/18 04/02/18 04/03/18 23:59 23:59 23:59 Intake Total 1257 / 1257 1310 / 1310 20 / 20 Output Total 700 / 700 2090 / 2089 380 / 380 Balance 557 / 557 -780 / -780 -360 / -360 Laboratory Tests Past 24 Hrs 04/02/18 04/03/18 05:20 06:42 Sodium 143 143 Potassium 5.3 H 4.8 Chloride 107 105 Carbon Dioxide 31.0 31.0 Anion Gap 5 7 BUN 42 H 50 H Creatinine 2.32 H 2.43 H Estim Creat Clear Calc 23.51 22.45 Est GFR (MDRD) Af Amer 27 L 26 L Est GFR (MDRD) Non-Af 22 L 21 L BUN/Creatinine Ratio 18.1 20.6 H Glucose 69 L 50 L Calcium 8.5 8.4 L POC Glucose 04/03/18 04/03/18 04/02/18 07:18 07:00 22:04 POC Glucose 63 L 59 L 145 H 04/02/18 04/02/18 04/02/18 16:19 11:22 07:04 POC Glucose 146 H 171 H 68 L 04/02/18 06:51 POC Glucose 63 L Medical Necessity - Tobacco Use Smoking Status: Never smoker Tobacco Use: Secondhand Assessment/Plan All Active Problems (Last Updated 01/13/18 @ 11:59 by Gracie Baxter) Open leg wound (Acute) ESPERANZA (acute kidney injury) (Acute) CHF (congestive heart failure) (Acute) Right leg pain (Acute) Cellulitis of right lower extremity (Acute) Acute respiratory failure with hypoxia (Acute) RECOMMENDATIONS: 1. Likely tolerate another 24 hours of diuresis at current dosing 2. BiPAP with all sleep and rescue as needed during the day 3. Continue teaching of low-sodium diet 4. Oxygen as tolerated to maintain saturations 89-92% 5. Follow-up in the pulmonary outpatient office for repeat PFTs 6. Discharged on BiPAP to treat chronic respiratory failure 7. Walking oximetry prior to discharge IMPRESSIONS: 1. Acute on chronic hypoxic respiratory failure: Continue supplement oxygen as needed to maintain saturations 89-92%. Encourage BiPAP for rescue and during sleep. Patient has had good diuresis. We will continue with BiPAP 22/16 cm of water while hospitalized. This can be continued on discharge for respiratory failure. Patient will need a walking oximetry prior to discharge. Patient likely only going to tolerate another 24- 48 hrs of diuresis at the current levels. 2. Asthma: This patient carries a diagnosis of asthma and reports good response from albuterol nebulizers at home. Previous PFTs do not support a diagnosis of asthma, will provide her with albuterol nebulizers at this time given her wheezing on exam. Plan to repeat pulmonary function test after the patient has recovered from this acute period. Follow-up in the outpatient setting to determine appropriate inhalers if any. 3. Morbid obesity: Patient may be suffering from obesity hypoventilation syndrome, will evaluate further with an ABG while on room air and saturating appropriately. Complicates exam, plan, care and prognosis. Encourage weight loss. 4. Chronic renal insufficiency, stage III: May impact the effectiveness of diuretics, may prolong acute illness. Defer management to hospitalist. 5. Paroxysmal atrial fibrillation: Maintain rate control, defer to hospitalist. Continue anticoagulation, optimize INR. 6. Diabetes type 2/hypertension/hyperlipidemia: Comorbid illness complicates exam, plan, care and prognosis. Resume all home medications as tolerates. Defer management to hospitalist. Thank you for the consultation and the opportunity to participate in this patient's care. This note was generated with [employer] dictation software. It may contain incorrect words, spelling, and punctuation that were not noted in checking the note before signing. Code Visit Inpatient E&M: 98725 Subs Hosp L2
[2018-04-03 08:01] LABS: Bedside Glucose 109 mg/dL (70-110)
--- NOTE | 2018-04-03 08:04 | CPS ---
Pt decreased to 4 lpm. Saturation 94% on 4lpm. Nurse aware of change.
[2018-04-03] MEDS: Sertraline 50 MG Tablet PO (10:16)
[2018-04-03] MEDS: LINAGLIPTIN 5 MG TABLET PO (10:16)
[2018-04-03] MEDS: amLODIPine 5 MG Tablet PO (10:16)
[2018-04-03] MEDS: Sodium Chloride 0.65% 1 SPRAY SPRAY.BTL NASAL ×2 (10:16→21:03)
[2018-04-03] MEDS: Gabapentin 600 MG Tablet PO ×3 (10:16→16:17)
[2018-04-03] MEDS: Losartan Potassium 100 MG Tablet PO (10:17)
[2018-04-03 11:35] LABS: Bedside Glucose 144 mg/dL (70-110)
--- NOTE | 2018-04-03 11:58 | DCINST_ITS ---
- Discharge Diagnoses Current Active Problems: Current Active and Chronic Problems (Last Updated 01/13/18 @ 11:59 by Gracie Baxter) ESPERANZA (acute kidney injury) (Acute) CHF (congestive heart failure) (Acute) Paroxysmal A-fib (Chronic) You will use the following diet at home:: No restrictions Your food should be the consistency of: Regular Your liquids should be the consistency of: Regular/Thin Discharge Activity: Return to Normal Activity Weight Bearing Status: Full weight bearing Additional Instructions: wear oxygen as prescribed, wear Bipap as prescribed Allergies/Adverse Reactions: Allergies aspirin Allergy (Unknown, Verified 03/31/18 09:32) Unknown ibuprofen Allergy (Verified 03/31/18 09:32) Unknown sulfamethoxazole [From Aprra] Allergy (Verified 03/31/18 09:32) Unknown trimethoprim [From Aprra] Allergy (Verified 03/31/18 09:32) Unknown Medications to take at Discharge Gabapentin [Neurontin] 600 mg PO TIDCM 11/08/14 Losartan Potassium [Cozaar] 100 mg PO DAILY 11/08/14 Sertraline HCl [Zoloft] 50 mg PO DAILY 11/08/14 Simvastatin [Zocor] 20 mg PO QHS 11/08/14 Warfarin [Coumadin] 2.5 mg PO DAILY 01/13/18 ergocalciferol (vitamin D2) 50,000 unit capsule 50,000 unit PO QMONTH 30 Days # 1 01/13/18 linagliptin 5 mg tablet 5 mg PO DAILY 30 Days #30 01/13/18 Amlodipine [Norvasc] 5 mg PO DAILY 03/31/18 Sodium Chloride [Saline Nasal Mist] 1 spray NASAL BID 03/31/18 Albuterol IH (ProAir) [Proair Hfa] 2 inh INHALATION 4X/DAY #1 inhaler 04/03/18 Furosemide [Lasix] 40 mg PO BIDLX #60 tab 04/03/18 Insulin Glargine [Lantus SoloStar Pen] 55 units SC QHS pen 04/03/18 Potassium Chloride 20 meq PO BID #120 tablet.er 04/03/18 The following prescriptions were given: Furosemide [Lasix] 40 mg PO BIDLX #60 tab Potassium Chloride 20 meq PO BID #120 tablet.er Albuterol IH (ProAir) [Proair Hfa] 2 inh INHALATION 4X/DAY #1 inhaler Primary Care Physician: Marshall Baltazar, [employer]SEMBLER-C [Primary Care Provider] - Please follow up with your Primary Care Physician in: in 2 weeks Test Results: Test results from this visit will be discussed in further detail at your follow- up appointment, if applicable. Please Follow Up With: Carlos Campos MD When: in two weeks
--- NOTE | 2018-04-03 13:15 | CASEMGMT ---
As per physician, pt needs SNF, cannot manage at home, is very weak. SW spoke w/pt, pt has not been to SNF in the past. SW reviewed options w/pt, pt would like a referral made to [facility]. SW explained the limits of pt's insurance, that she needs a precert and would be covered only for 20 days, as TCU does not take the Medicaid part of pt's insurance. Pt states understanding, pt does not think that she will need to be there 20 days. SW explained will make referral and ask TCU to start precert. Pt states understanding and is in agreement with plan. SW called TCU, spoke w/T[facility], referral made. SW will continue to follow. GISELLE Gonzalez, FUEL AGENT
--- NOTE | 2018-04-03 15:47 | PCM.PROGNOTE ---
Patient Problems: Active and Suspected Problems (Last Updated 01/13/18 @ 11:59 by Gracie Baxter) ESPERANZA (acute kidney injury) (Acute) CHF (congestive heart failure) (Acute) Subjective: Pt still very SOB with light exertion and desatting to 86 with light ambulation. At rest has had much improvement in SOB. Occsaional dry cough. No CP/pressure, still has significant edema - Physical Exam General: Alert, Oriented x3, Cooperative HEENT: Atraumatic, PERRLA, EOMI, Normocephalic Neck: Supple, No JVD, Negative Carotid Bruits Lungs: Diminished, Rales, Wheezes - right sided faint Cardiovascular: Regular rate, No murmurs Abdomen: Bowel Sounds Present, Soft, Non Tender Extremities: Capillary Refill Less than 3 Seconds, Edema - 2+ pitting edema BLE Skin: No rashes, No breakdown Musculoskeletal: No Tenderness to Palpation of Joints or Extremities Neurological: Cranial nerves II-XII grossly intact Psych/Mental Status: Normal Affect, Appropriate, Alert and oriented to time, place, person, mood and affect Vital Signs Temp Pulse Resp BP Pulse Ox 97.6 F L 80 16 138/68 H 85 04/03/18 10:15 04/03/18 15:00 04/03/18 13:57 04/03/18 10:15 04/03/18 12:19 Oxygen Flow Rate (L/min) [ 6 AMBULATION with Oxygen] Oxygen Flow Rate (L/min) 4 Oxygen Delivery Method Nasal Cannula Weight: 329 lb 12.984 oz Body Mass Index (BMI) 46.2 Intake and Output for Last 24 Hours 04/01/18 04/02/18 04/03/18 23:59 23:59 23:59 Intake Total 1257 / 1257 1310 / 1310 940 / 940 Output Total 700 / 700 2090 / 2090 1630 / 1630 Balance 557 / 557 -780 / -780 -690 / -690 Laboratory Tests Past 24 Hrs 04/03/18 06:42 Sodium 143 Potassium 4.8 Chloride 105 Carbon Dioxide 31.0 Anion Gap 7 BUN 50 H Creatinine 2.43 H Estim Creat Clear Calc 22.45 Est GFR (MDRD) Af Amer 26 L Est GFR (MDRD) Non-Af 21 L BUN/Creatinine Ratio 20.6 H Glucose 50 L Calcium 8.4 L POC Glucose 04/03/18 04/03/18 04/03/18 11:29 07:56 07:18 POC Glucose 144 H 109 63 L 04/03/18 04/02/18 04/02/18 07:00 22:04 16:19 POC Glucose 59 L 145 H 146 H Medical Necessity - Tobacco Use Smoking Status: Never smoker Tobacco Use: Secondhand Assessment/Plan All Active Problems (Last Updated 01/13/18 @ 11:59 by Gracie Baxter) Open leg wound (Acute) ESPERANZA (acute kidney injury) (Acute) CHF (congestive heart failure) (Acute) Right leg pain (Acute) Cellulitis of right lower extremity (Acute) Acute respiratory failure with hypoxia (Acute) 1. Acute hypoxic respiratory failure 2/2 Acute CHF - plan for one more day iv lasix. Still significantly hypoxic on ambulation. overall improved. Plan to DC on BiPAP for chronic resp failure. 2. Hx Paroxysmal Afib - check INR. continue warfarin. Not on any rate limiting agents. 3. ESPERANZA - with elevated K. Should decrease with lasix and albuterol. Has seen Diogo in the past. 4. Poorly controlled DMt2 - continue current therapy 5. HTN - stable 6. HLD - simvastatin. 7. Suspected COPD - aerosols 8. DIEGO - at least 3 risk factors. Needs o/p psg. On bipap 9. 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 Carb and sodium restrict. 10. Chronic RLE wound - continue current dressings. F/u wound center as o/p. DVT ppx: heparin DC planning: SNF when accepted. This patient was seen by Robe Mera PA-C under the supervision of Dr. Lauren.
[2018-04-03] MEDS: Insulin Lispro 100 UNIT/ML INSULN.PEN SC ×2 (16:17→21:05)
[2018-04-03 16:26] LABS: Bedside Glucose 183 mg/dL (70-110)
[2018-04-03] MEDS: Atorvastatin Calcium 10 MG Tablet PO (21:04)
[2018-04-03 21:16] LABS: Bedside Glucose 214 mg/dL (70-110)
--- NOTE | 2018-04-03 23:15 | CPS ---
pt did not want to wear at this time
[2018-04-04] VITALS (9 sets, daily range): BP systolic 111–140; BP diastolic 46–71; PULSE 69–78; RESP 16–18; TEMP 36.6–36.9; O2SAT 92–96
[2018-04-04] MEDS: Furosemide 40 MG/4 ML Vial IV (05:15)
[2018-04-04] MEDS: 0.9% NaCl Peripheral Flush Adult/Peds IV (05:15)
[2018-04-04] MEDS: Acetaminophen 325 MG Tablet 650 MG PO (05:21)
[2018-04-04 05:43] LABS: International Normalized Ratio 2.2; Prothrombin Time (Protime)PT. 24.5 SECONDS (11.7-14.9)
[2018-04-04 06:20] LABS: Anion Gap 7 (5-15); BUN 57 mg/dL (7-18); BUN/Creat Ratio 23.9 RATIO (10-20); Calcium,Total 8.5 mg/dL (8.5-10.1); Chloride 105 mmol/L (98-107); Creatinine, Serum 2.38 mg/dL (0.55-1.02); EST Glomerular Filtration Rate 22 mL/min (>60); Est Glom Filt Rate - Afr Amer 26 mL/min (>60); Estimated Creatinine Clearance 22.92 ml/min; Glucose 106 mg/dL (74-106); Potassium 5.6 mmol/L (3.5-5.1); Sodium Level 143 mmol/L (136-145)
[2018-04-04] MEDS: Albuterol 2.5 MG/3 ML VIAL.NEB. INHALATION ×2 (06:52→13:23)
[2018-04-04 07:11] LABS: Bedside Glucose 108 mg/dL (70-110)
--- NOTE | 2018-04-04 07:46 | PN_ITS ---
Patient Problems: Active and Suspected Problems (Last Updated 01/13/18 @ 11:59 by Gracie Baxter) ESPERANZA (acute kidney injury) (Acute) CHF (congestive heart failure) (Acute) Subjective: Patient did well overnight. No acute issues were reported. Patient has been compliant with BiPAP therapy and reports subjective improvement in daytime hypersomnolence. Patient did have a walking oximetry yesterday, but desaturated into the 80s on 6 L nasal cannula, so stayed to continue diuresis. - Physical Exam General: Alert, Oriented x3, Cooperative, No apparent distress, - - Morbidly obese. Speaking in full sentences. HEENT: Atraumatic, PERRLA, EOMI, Normocephalic, - - Scleral icterus or injection noted. Oral: Moist Mucosa, No Gingival or Mucosal Lesions/ Ulcerations Neck: Supple, No Nodes, Trachea Midline, JVD, Right Lungs: No rhonchi, No wheeze, No rales, Diminished, - - Symmetric expansion. No dullness to percussion. Cardiovascular: Normal S1, Normal S2, No murmurs, Irregular Rate, No rub noted, No Gallop Abdomen: Bowel Sounds Present, Soft, Non Tender, Non-Distended, Obese Extremities: No clubbing, No cyanosis, Capillary Refill Less than 3 Seconds, Edema - Improving Skin: No rashes, No breakdown Musculoskeletal: No Tenderness to Palpation of Joints or Extremities Lymphatic: No Cervical, Supraclavicular, or Inguinal Adenopathy Neurological: Cranial nerves II-XII grossly intact, Neuro grossly intact, Motor Exam 5/5 strength throughout Psych/Mental Status: Alert and oriented to time, place, person, mood and affect Vital Signs Temp Pulse Resp BP Pulse Ox 36.9 C 69 16 126/61 H 92 04/04/18 02:45 04/04/18 02:56 04/04/18 02:45 04/04/18 05:14 04/04/18 02:45 Oxygen Flow Rate (L/min) [ 6 AMBULATION with Oxygen] Oxygen Flow Rate (L/min) 4 Oxygen Delivery Method Nasal Cannula Weight: 147.1 kg Body Mass Index (BMI) 46.2 Intake and Output for Last 24 Hours 04/02/18 04/03/18 04/04/18 23:59 23:59 23:59 Intake Total 1310 / 1310 1240 / 1240 240 / 240 Output Total 2089 Balance -780 / -780 -840 / -840 240 / 240 Laboratory Tests Past 24 Hrs 04/03/18 04/04/18 04/04/18 06:42 05:10 05:10 PT 24.5 H INR 2.2 Sodium 143 143 Potassium 4.8 5.6 H Chloride 105 105 Carbon Dioxide 31.0 31.0 Anion Gap 7 7 BUN 50 H 57 H Creatinine 2.43 H 2.38 H Estim Creat Clear Calc 22.45 22.92 Est GFR (MDRD) Af Amer 26 L 26 L Est GFR (MDRD) Non-Af 21 L 22 L BUN/Creatinine Ratio 20.6 H 23.9 H Glucose 50 L 106 Calcium 8.4 L 8.5 POC Glucose 04/04/18 04/03/18 04/03/18 06:56 21:01 16:15 POC Glucose 108 214 H 183 H 04/03/18 04/03/18 11:29 07:56 POC Glucose 144 H 109 Medical Necessity - Tobacco Use Smoking Status: Never smoker Tobacco Use: Secondhand Assessment/Plan All Active Problems (Last Updated 01/13/18 @ 11:59 by Gracie Baxter) Open leg wound (Acute) ESPERANZA (acute kidney injury) (Acute) CHF (congestive heart failure) (Acute) Right leg pain (Acute) Cellulitis of right lower extremity (Acute) Acute respiratory failure with hypoxia (Acute) RECOMMENDATIONS: 1. Likely tolerate another 24 hours of diuresis at current dosing 2. BiPAP with all sleep and rescue as needed during the day 3. Patient can be discharged if saturations greater than 88% with ambulation on 6 L/min 4. Oxygen as tolerated to maintain saturations 89-92% 5. Follow-up in the pulmonary outpatient office for repeat PFTs 6. Discharged on BiPAP to treat chronic respiratory failure 7. Walking oximetry prior to discharge IMPRESSIONS: 1. Acute on chronic hypoxic respiratory failure: Continue supplement oxygen as needed to maintain saturations 89-92%. Encourage BiPAP for rescue and during sleep. Patient has had good diuresis. We will continue with BiPAP 22/16 cm of water while hospitalized. This can be continued on discharge for respiratory failure. Patient appears to be responding to diuretic therapy with decrease in resting FiO2 requirements. Patient can be discharged once able to ambulate on 6 L nasal cannula with saturations above 88%. Continue with daily BMPs. Would not increase diuretic therapy 2. Asthma: This patient carries a diagnosis of asthma and reports good response from albuterol nebulizers at home. Previous PFTs do not support a diagnosis of asthma, will provide her with albuterol nebulizers at this time given her wheezing on exam. Plan to repeat pulmonary function test after the patient has recovered from this acute period. Follow-up in the outpatient setting to determine appropriate inhalers if any. 3. Morbid obesity: Patient may be suffering from obesity hypoventilation syndrome, will evaluate further with an ABG while on room air and saturating appropriately. Complicates exam, plan, care and prognosis. Encourage weight loss. 4. Chronic renal insufficiency, stage III: May impact the effectiveness of diuretics, may prolong acute illness. Defer management to hospitalist. 5. Paroxysmal atrial fibrillation: Maintain rate control, defer to hospitalist. Continue anticoagulation, optimize INR. 6. Diabetes type 2/hypertension/hyperlipidemia: Comorbid illness complicates exam, plan, care and prognosis. Resume all home medications as tolerates. Defer management to hospitalist. Thank you for the consultation and the opportunity to participate in this patient's care. This note was generated with [employer] dictation software. It may contain incorrect words, spelling, and punctuation that were not noted in checking the note before signing. Code Visit Inpatient E&M: 45007 Subs Hosp L2
[2018-04-04] MEDS: amLODIPine 5 MG Tablet PO (09:35)
[2018-04-04] MEDS: Losartan Potassium 100 MG Tablet PO (09:35)
[2018-04-04] MEDS: Sodium Chloride 0.65% 1 SPRAY SPRAY.BTL NASAL (09:35)
[2018-04-04] MEDS: Gabapentin 600 MG Tablet PO ×2 (09:35→13:03)
[2018-04-04] MEDS: Sertraline 50 MG Tablet PO (09:36)
[2018-04-04] MEDS: LINAGLIPTIN 5 MG TABLET PO (09:36)
[2018-04-04 12:15] LABS: Bedside Glucose 157 mg/dL (70-110)
--- NOTE | 2018-04-04 12:43 | PCM.TXEXTCAR ---
- Diet 03/31/18 15:36 Diet: Cardiac: Calorie-Controlled Food consistency:: Regular Liquid Consistency:: Regular/Thin How many daily calories?: 1800 calorie - Routine Orders/Code Status O2 Frequency: Continuous Keep PO Greater than or Equal to (%): 90 Routine Lab Work: CBC - 5 days, BMP - 5 days Code Status: Full Code - Wound(s) R TO Wound Type: Stasis Ulcer - Therapies Physical Therapy: Eval and Treat Occupational Therapy: Eval and Treat - Problem/Diagnosis (1) CHF (congestive heart failure) Status: Acute Current Visit: Yes (2) ESPERANZA (acute kidney injury) Status: Acute Current Visit: Yes (3) Paroxysmal A-fib Status: Chronic Current Visit: Yes (4) Chronic renal insufficiency, stage III (moderate) Status: Chronic Current Visit: No (5) Leg wound, right Status: Chronic Current Visit: No (6) Obesity Status: Chronic Current Visit: No (7) Hypertension Status: Chronic Current Visit: No (8) Hyperlipidemia Status: Chronic Current Visit: No (9) Diabetes mellitus type 2 in obese Status: Chronic Current Visit: No (10) DIEGO (obstructive sleep apnea) Status: Acute Current Visit: Yes (11) Acute respiratory failure with hypoxia Status: Acute Current Visit: No - Allergies/Procedures Done in Hospital Allergies/Adverse Reactions: Allergies aspirin Allergy (Unknown, Verified 03/31/18 09:32) Unknown ibuprofen Allergy (Verified 03/31/18 09:32) Unknown sulfamethoxazole [From Septra] Allergy (Verified 03/31/18 09:32) Unknown trimethoprim [From Septra] Allergy (Verified 03/31/18 09:32) Unknown Procedures: 2-D Echocardiogram - Type of Care/Length of Stay Estimated LOS: Convalescent Care Less Than 30 days Type of Care Needed: Skilled Rehab Potential: Fair Prognosis: Fair - Additional Orders/Day of Discharge Day of Discharge: 04/04/18 - Dietary and Speech Recommendations Dietitian Recommendations/Changes: Rec consider diet change to 1800 calorie controlled, cardiac/low cholesterol, low sodium with fluid restriction as needed. Rec 1 pkt cory bid for improved wound healing - please order from pharmacy. - Follow Up Care Primary Care Physician: Marshall Baltazar NP-C [Primary Care Provider] - Please follow up with your Primary Care Physician in: in 2 weeks Please Follow Up With: Guzmán,Marion, DIRECTOR OF PARTNER MARKETING-C When: in two weeks Please Follow Up With: Marshall Baltazar NP-C
--- NOTE | 2018-04-04 12:47 | TREXTCAR_ITS ---
Addendum entered and electronically signed by AYO Galvez 04/04/18 13:33: Code Visit Please continue BiPAP qhs for chronic respiratory failure at current settings. Original Note: - Diet 03/31/18 15:36 Diet: Cardiac: Calorie-Controlled Food consistency:: Regular Liquid Consistency:: Regular/Thin How many daily calories?: 1800 calorie - Routine Orders/Code Status O2 Frequency: Continuous Keep PO Greater than or Equal to (%): 90 Routine Lab Work: CBC - 5 days, BMP - 5 days Code Status: Full Code - Wound(s) R TO Wound Type: Stasis Ulcer - Therapies Physical Therapy: Eval and Treat Occupational Therapy: Eval and Treat - Problem/Diagnosis (1) CHF (congestive heart failure) Status: Acute Current Visit: Yes (2) ESPERANZA (acute kidney injury) Status: Acute Current Visit: Yes (3) Paroxysmal A-fib Status: Chronic Current Visit: Yes (4) Chronic renal insufficiency, stage III (moderate) Status: Chronic Current Visit: No (5) Leg wound, right Status: Chronic Current Visit: No (6) Obesity Status: Chronic Current Visit: No (7) Hypertension Status: Chronic Current Visit: No (8) Hyperlipidemia Status: Chronic Current Visit: No (9) Diabetes mellitus type 2 in obese Status: Chronic Current Visit: No (10) DIEGO (obstructive sleep apnea) Status: Acute Current Visit: Yes (11) Acute respiratory failure with hypoxia Status: Acute Current Visit: No - Allergies/Procedures Done in Hospital Allergies/Adverse Reactions: Allergies aspirin Allergy (Unknown, Verified 03/31/18 09:32) Unknown ibuprofen Allergy (Verified 03/31/18 09:32) Unknown sulfamethoxazole [From Septra] Allergy (Verified 03/31/18 09:32) Unknown trimethoprim [From Septra] Allergy (Verified 03/31/18 09:32) Unknown Procedures: 2-D Echocardiogram - Type of Care/Length of Stay Estimated LOS: Convalescent Care Less Than 30 days Type of Care Needed: Skilled Rehab Potential: Fair Prognosis: Fair - Additional Orders/Day of Discharge Day of Discharge: 04/04/18 - Dietary and Speech Recommendations Dietitian Recommendations/Changes: Rec consider diet change to 1800 calorie controlled, cardiac/low cholesterol, low sodium with fluid restriction as needed. Rec 1 pkt cory bid for improved wound healing - please order from pharmacy. - Follow Up Care Primary Care Physician: Marshall Baltazar, CHIVO-C [Primary Care Provider] - Please follow up with your Primary Care Physician in: in 2 weeks Please Follow Up With: Marion Guzmán NP-C When: in two weeks Please Follow Up With: Marshall Baltazar, YESSIC
[2018-04-04] MEDS: Sodium Polystyrene Sulfonate 15 GM/60 ML UDC PO (13:02)
--- NOTE | 2018-04-04 13:43 | CASEMGMT ---
Patient was approved to go to TCU. RN was notified and she notified patient. Plan: [facility] TCU under skilled level of care. Britni WEST
--- NOTE | 2018-04-04 14:53 | PCM.DC.SUM ---
Discharge Date and Diagnosis - Problem List Patient Problems: Active and Suspected Problems (Last Updated 01/13/18 @ 11:59 by Gracie Baxter) ESPERANZA (acute kidney injury) (Acute) CHF (congestive heart failure) (Acute) DIEGO (obstructive sleep apnea) (Acute) Date of Admission: 03/31/18 - Primary Discharge Diagnosis Active and Suspected Problems (Last Updated 01/13/18 @ 11:59 by Gracie Baxter) ESPERANZA (acute kidney injury) (Acute) CHF (congestive heart failure) (Acute) DIEGO (obstructive sleep apnea) (Acute) - Secondary Discharge Diagnosis Chronic Problems (Last Updated 01/13/18 @ 11:59 by Gracie Baxter) Chronic renal insufficiency, stage III (moderate) (Chronic) Leg wound, right (Chronic) Venous insufficiency (chronic) (peripheral) (Chronic) Paroxysmal A-fib (Chronic) 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 Contrast injection was performed. Left ventricular systolic function is normal. The estimated ejection fraction is 65 %. The left atrium is mildly enlarged. Mild (1+) eccentric mitral valve insufficiency. Trivial tricuspid valve insufficiency. Right ventricular systolic pressure estimated to be 46 mmHg. There is evidence of diastolic dysfunction. NM/Lung Scan Vent/Perf IMPRESSION: 1. VERY LOW PROBABILITY FOR PULMONARY EMBOLUS (<10%) 99m Tc DTPA aerosol ventilation / 99m Tc MAA pulmonary perfusion imaging examination, according to PIOPED II interpretive criteria with regard given to the presence of > 2 ventilation-perfusion matches without corresponding radiographic changes. (Sotsman et al, Radiology 246: 941, 2008 Sonile et al, J Nucl Med 49: 1741, 2008). 2. Central clumping of the aerosol may be secondary to obstructive airway mechanics and or clinical tachypnea. CT/Chest without Contrast IMPRESSION: Findings are most consistent with vascular congestion/CHF. There are no findings to suggest interseptal thickening, honeycombing or fibrotic change. Cholelithiasis. Degenerative change thoracic spine. RAD/Chest 1 View (Portable) IMPRESSION: Low lung volumes, without focal consolidation. Consults: Andres - pulmonology Operations: None Procedures: 2-D Echocardiogram Summary of Care Provided: Physical exam on day of discharge: General: Resting comfortably NAD Psych: A/Ox3 normal affect HEENT: PEARRLA AT NC Neck: Supple NT CV: RRR no m/t/r/g/h Resp: Faint crackles bilateral bases, faint wheeze on expiration on the right side Abd: [id number] Soft NT no guarding or rigidity Ext: DP2+= 2+ bilateral pitting edema Skin: W/D normal turgor Lymph/Heme: No active bleeding or adenopathy Neuro: CN2-12 intact Hospital course: The patient is a 67 year old F with a history of type 2 diabetes, morbid obesity, paroxysmal atrial fibrillation, hypertension, hyperlipidemia, CAD stage III, asthma who presented to the emergency room with increased shortness of breath for 3 days, intermittently productive cough, shortness of breath worse with exertion, swelling of her bilateral lower extremities, PND and orthopnea. She had chest x-ray consistent with CHF and elevated BNP. She was toxic and required 6 L/min of oxygen to maintain good saturations and had a pH of 7.26. She was admitted to the PCU suspected acute hypoxic respiratory failure secondary to an acute congestive heart failure of which she had no prior episodes. She also had an elevated d-dimer and a VQ scan was obtained which was negative for PE-she had a ESPERANZA on admission. She was given IV diuresis 40 mg twice daily, pulmonary medicine was consulted. She underwent echocardiogram which demonstrated preserved ejection fraction 65% she had pulmonary hypertension with a right ventricular systolic pressure 46 mmHg, diastolic dysfunction. CT of the chest was obtained which showed congestive heart failure. She is placed on BiPAP at night per pulmonary. She remains significantly short of breath with light exertion. She would become very dyspneic and was only able to take several steps across the room before desaturating. She was able to remain with stable oxygenation at 4 L/min. She was stable at rest with 2 L/min. Prior to presentation she did not use oxygen at home. She will continue to require oxygen both at rest and with exertion going forward. With her being so debilitated and becoming very dyspneic with light exertion it was felt that she would benefit from screwed further [facility]. We also recommended that she continue BiPAP at night for chronic respiratory failure. She should continue your current settings. She will need follow-up with pulmonology and with her PCP. She is discharged to [facility] in stable condition. As she did well with 40 mg q. 8 of IV Lasix she was transitioned to 60 mg Lasix twice daily orally for discharge. She will need follow-up CBC and BMP. She will also need to restrict her sodium intake, and she should Clark wrap her legs daily and elevate her legs while at rest. This patient was seen by Robe Mera PA-C under the supervision of Doctor Lauren. [] Discharge Diet: Low fat/ Low Cholesterol, 1800 Calorie Control Diet, 2000 mg Sodium Diet Discharge Activity: Return to Normal Activity Weight Bearing Status: Full weight bearing Home Medications: Medications to take at Discharge Gabapentin [Neurontin] 600 mg PO TIDCM 11/08/14 Losartan Potassium [Cozaar] 100 mg PO DAILY 11/08/14 Sertraline HCl [Zoloft] 50 mg PO DAILY 11/08/14 Simvastatin [Zocor] 20 mg PO QHS 11/08/14 Warfarin [Coumadin] 2.5 mg PO DAILY 01/13/18 ergocalciferol (vitamin D2) 50,000 unit capsule 50,000 unit PO QMONTH 30 Days #1 01/13/18 linagliptin 5 mg tablet 5 mg PO DAILY 30 Days #30 01/13/18 Amlodipine [Norvasc] 5 mg PO DAILY 03/31/18 Sodium Chloride [Saline Nasal Mist] 1 spray NASAL BID 03/31/18 Albuterol IH (ProAir) [Proair Hfa] 2 inh INHALATION 4X/DAY #1 inhaler 04/03/18 Insulin Glargine [Lantus SoloStar Pen] 55 units SC QHS pen 04/03/18 Potassium Chloride 20 meq PO BID #120 tablet.er 04/03/18 Furosemide [Lasix] 60 mg PO BID@1000,1800 tablet 04/04/18 Following Prescrptions Were Given to Patient: Albuterol IH (ProAir) [Proair Hfa] 2 inh INHALATION 4X/DAY #1 inhaler Potassium Chloride 20 meq PO BID #120 tablet.er Primary Care Physician: Marshall Baltazar, HO[employer] HAND[employer] KNIFE ASSEMBLER-C [Primary Care Provider] - Please follow up with your Primary Care Physician in: in 2 weeks Please Follow Up With: Marion Guzmán NP-C When: in two weeks Please Follow Up With: Marshall Baltazar NP-C [facility]position[facility] facility Minutes spent on discharge:: 35 Patient Condition:: Stable Medical Necessity - Tobacco Use Smoking Status: Never smoker Tobacco Use: Secondhand Meaningful Use Info Meaningful Use Diagnoses (Choose all that apply): CHF - CHF CLARK/ARB ordered at discharge?: Yes Documented LVEF (%): 65
--- NOTE | 2018-04-04 15:01 | DS.PCM_ITS ---
Discharge Date and Diagnosis - Problem List Patient Problems: Active and Suspected Problems (Last Updated 01/13/18 @ 11:59 by Gracie Baxter) ESPERANZA (acute kidney injury) (Acute) CHF (congestive heart failure) (Acute) DIEGO (obstructive sleep apnea) (Acute) Date of Admission: 03/31/18 - Primary Discharge Diagnosis Active and Suspected Problems (Last Updated 01/13/18 @ 11:59 by Gracie Baxter) ESPERANZA (acute kidney injury) (Acute) CHF (congestive heart failure) (Acute) DIEGO (obstructive sleep apnea) (Acute) - Secondary Discharge Diagnosis Chronic Problems (Last Updated 01/13/18 @ 11:59 by Gracie Baxter) Chronic renal insufficiency, stage III (moderate) (Chronic) Leg wound, right (Chronic) Venous insufficiency (chronic) (peripheral) (Chronic) Paroxysmal A-fib (Chronic) 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 Contrast injection was performed. Left ventricular systolic function is normal. The estimated ejection fraction is 65 %. The left atrium is mildly enlarged. Mild (1+) eccentric mitral valve insufficiency. Trivial tricuspid valve insufficiency. Right ventricular systolic pressure estimated to be 46 mmHg. There is evidence of diastolic dysfunction. NM/Lung Scan Vent/Perf IMPRESSION: 1. VERY LOW PROBABILITY FOR PULMONARY EMBOLUS (<10%) 99m Tc DTPA aerosol ventilation / 99m Tc MAA pulmonary perfusion imaging examination, according to PIOPED II interpretive criteria with regard given to the presence of > 2 ventilation-perfusion matches without corresponding radiographic changes. (Sotsman et al, Radiology 246: 941, 2008 Sonile et al, J Nucl Med 49: 1741, 2008). 2. Central clumping of the aerosol may be secondary to obstructive airway mechanics and or clinical tachypnea. CT/Chest without Contrast IMPRESSION: Findings are most consistent with vascular congestion/CHF. There are no findings to suggest interseptal thickening, honeycombing or fibrotic change. Cholelithiasis. Degenerative change thoracic spine. RAD/Chest 1 View (Portable) IMPRESSION: Low lung volumes, without focal consolidation. Consults: Andres - pulmonology Operations: None Procedures: 2-D Echocardiogram Summary of Care Provided: Physical exam on day of discharge: General: Resting comfortably NAD Psych: A/Ox3 normal affect HEENT: PEARRLA AT NC Neck: Supple NT CV: RRR no m/t/r/g/h Resp: Faint crackles bilateral bases, faint wheeze on expiration on the right side Abd: [id number] Soft NT no guarding or rigidity Ext: DP2+= 2+ bilateral pitting edema Skin: W/D normal turgor Lymph/Heme: No active bleeding or adenopathy Neuro: CN2-12 intact Hospital course: The patient is a 67 year old F with a history of type 2 diabetes, morbid obesity , paroxysmal atrial fibrillation, hypertension, hyperlipidemia, CAD stage III, asthma who presented to the emergency room with increased shortness of breath for 3 days, intermittently productive cough, shortness of breath worse with exertion, swelling of her bilateral lower extremities, PND and orthopnea. She had chest x-ray consistent with CHF and elevated BNP. She was toxic and required 6 L/min of oxygen to maintain good saturations and had a pH of 7.26. She was admitted to the PCU suspected acute hypoxic respiratory failure secondary to an acute congestive heart failure of which she had no prior episodes. She also had an elevated d-dimer and a VQ scan was obtained which was negative for PE-she had a ESPERANZA on admission. She was given IV diuresis 40 mg twice daily, pulmonary medicine was consulted. She underwent echocardiogram which demonstrated preserved ejection fraction 65% she had pulmonary hypertension with a right ventricular systolic pressure 46 mmHg, diastolic dysfunction. CT of the chest was obtained which showed congestive heart failure. She is placed on BiPAP at night per pulmonary. She remains significantly short of breath with light exertion. She would become very dyspneic and was only able to take several steps across the room before desaturating. She was able to remain with stable oxygenation at 4 L/min. She was stable at rest with 2 L/min. Prior to presentation she did not use oxygen at home. She will continue to require oxygen both at rest and with exertion going forward. With her being so debilitated and becoming very dyspneic with light exertion it was felt that she would benefit from screwed further [facility]. We also recommended that she continue BiPAP at night for chronic respiratory failure. She should continue your current settings. She will need follow-up with pulmonology and with her PCP. She is discharged to [facility] in stable condition. As she did well with 40 mg q. 8 of IV Lasix she was transitioned to 60 mg Lasix twice daily orally for discharge. She will need follow-up CBC and BMP. She will also need to restrict her sodium intake, and she should Clark wrap her legs daily and elevate her legs while at rest. This patient was seen by Robe Mera PA-C under the supervision of Doctor Lauren. [] Discharge Diet: Low fat/ Low Cholesterol, 1800 Calorie Control Diet, 2000 mg Sodium Diet Discharge Activity: Return to Normal Activity Weight Bearing Status: Full weight bearing Home Medications: Medications to take at Discharge Gabapentin [Neurontin] 600 mg PO TIDCM 11/08/14 Losartan Potassium [Cozaar] 100 mg PO DAILY 11/08/14 Sertraline HCl [Zoloft] 50 mg PO DAILY 11/08/14 Simvastatin [Zocor] 20 mg PO QHS 11/08/14 Warfarin [Coumadin] 2.5 mg PO DAILY 01/13/18 ergocalciferol (vitamin D2) 50,000 unit capsule 50,000 unit PO QMONTH 30 Days # 1 01/13/18 linagliptin 5 mg tablet 5 mg PO DAILY 30 Days #30 01/13/18 Amlodipine [Norvasc] 5 mg PO DAILY 03/31/18 Sodium Chloride [Saline Nasal Mist] 1 spray NASAL BID 03/31/18 Albuterol IH (ProAir) [Proair Hfa] 2 inh INHALATION 4X/DAY #1 inhaler 04/03/18 Insulin Glargine [Lantus SoloStar Pen] 55 units SC QHS pen 04/03/18 Potassium Chloride 20 meq PO BID #120 tablet.er 04/03/18 Furosemide [Lasix] 60 mg PO BID@1000,1800 tablet 04/04/18 Following Prescrptions Were Given to Patient: Albuterol IH (ProAir) [Proair Hfa] 2 inh INHALATION 4X/DAY #1 inhaler Potassium Chloride 20 meq PO BID #120 tablet.er Primary Care Physician: Marshall Baltazar, RAT EXTERMINATOR-C [Primary Care Provider] - Please follow up with your Primary Care Physician in: in 2 weeks Please Follow Up With: Marion Guzmán NP-C When: in two weeks Please Follow Up With: Marshall Baltazar NP-C Disposition: [facility] facility Minutes spent on discharge:: 35 Patient Condition:: Stable Medical Necessity - Tobacco Use Smoking Status: Never smoker Tobacco Use: Secondhand Meaningful Use Info Meaningful Use Diagnoses (Choose all that apply): CHF - CHF CLARK/ARB ordered at discharge?: Yes Documented LVEF (%): 65
== END 2018-04-04 15:40 | disposition skilled nursing facility (03) | DRG 291 ==
LOC: ED 10:40 → PCU 15:54
PROVIDERS: Internal Medicine Critical Care Medicine; Physician Assistant; Admitting Provider Internal Medicine; Emergency Provider Emergency Medicine; Family Provider Nurse Practitioner Family; PCP Nurse Practitioner Family; Visit Provider Internal Medicine
DX: I13.0 Hypertensive heart and chronic kidney disease with heart failure and stage 1 through stage 4 chronic kidney disease, or unspecified chronic kidney disease (principal); J96.21 Acute and chronic respiratory failure with hypoxia; N17.9 Acute kidney failure, unspecified; Z68.42 Body mass index [BMI] 45.0-49.9, adult; E78.5 Hyperlipidemia, unspecified; E66.01 Morbid (severe) obesity due to excess calories; I48.0 Paroxysmal atrial fibrillation; G47.33 Obstructive sleep apnea (adult) (pediatric); E11.22 Type 2 diabetes mellitus with diabetic chronic kidney disease; N18.3 Chronic kidney disease, stage 3 (moderate); I87.2 Venous insufficiency (chronic) (peripheral); E11.40 Type 2 diabetes mellitus with diabetic neuropathy, unspecified; I50.9 Heart failure, unspecified; Z79.01 Long term (current) use of anticoagulants
CPT/HCPCS: 36415; 36600; 71045; 71250; 78582; 80048; 82803; 82962; 83880; 84484; 85025; 85379; 85610; 93005; 93306; 94002; 94003; 94640; 97116; 97162; 97166; 97530; 97802; 99283; A9540; A9567; Q9957; A4216; C8929; J1940

== ENCOUNTER 2018-04-04 15:50 | Inpatient (IN) | payer MEDICARE, SELFPAY ==
[2018-04-04 16:16] VITALS: BP 148/66; PULSE 72; RESP 18; TEMP 36.1; O2SAT 94; BMI 51.2
[2018-04-04 16:28] VITALS: BMI 51.2
[2018-04-04 16:56] LABS: Bedside Glucose 137 mg/dL (70-110)
[2018-04-04] MEDS: Gabapentin 600 MG Tablet PO (18:04)
[2018-04-04] MEDS: Sodium Chloride 0.65% 1 SPRAY SPRAY.BTL NASAL (18:05)
[2018-04-04] MEDS: Furosemide 20 MG Tablet 60 MG PO (18:05)
--- NOTE | 2018-04-04 20:47 | PCM.HP.STD ---
Problem List (1) Acute respiratory failure Status: Acute (2) Right-sided congestive heart failure Status: Acute (3) Asthma Status: Chronic (4) Sleep apnea Status: Chronic (5) Pulmonary hypertension Status: Chronic (6) Chronic kidney disease Status: Chronic (7) Chronic kidney disease (CKD) stage G1/A2, glomerular filtration rate (GFR) equal to or greater than 90 mL/min/1.73 square meter and albuminuria creatinine ratio between 30-299 mg/g Status: Chronic (8) Atrial fibrillation Status: Chronic (9) Morbid obesity Status: Chronic (10) Diabetes mellitus Status: Chronic (11) Polyneuropathy Status: Chronic (12) Depression Status: Chronic (13) Vitamin D deficiency Status: Chronic (14) Allergic rhinitis Status: Chronic (15) ESPERANZA (acute kidney injury) Status: Acute (16) Hypertension Status: Chronic (17) Hyperlipidemia Status: Chronic History of Present Illness Date of Admission: 04/04/18 Chief Complaint: Here for rehabilitation, strengthening, prior to discharge home with significant other. The patient is a 67 year old Female with below past medical history presented to [facility] Emergency Department 03/31/2018 with shortness of breath. 03/31/2018 Chest X-ray low lung volumes, no focal consolidation. 03/31/2018 EKG sinus rhythm with 1st degree AV block, low voltage QRS. Shortness of breath x 2 days, worsening. Dyspnea on exertion, cough with white sputum. Inhaler not working. Pulsox 60% on RA. Hemoglobin 11, Cr 2.28, Troponin normal. D-dimer 0.85, BNP 104. Lasix given for congestive heart failure, patient has peripheral edema. 03/31/2018 VQ scan very low probability for pulmonary embolism. 03/31/2018 Admit to Hospital. IV Lasix for heart failure. Consult pulmonary medicine. Albuterol, Duoneb for respiratory failure. 03/31/2018 CT chest with contrast showed vascular congestion/heart failure. 04/01/2018 Dr. Caldwell/Marion Guzmán thought shortness of breath secondary to cor pulmonale. Recommend Echo, BiPAP, oxygen, diuresis. 04/01/2018 Echo left ventricular systolic function normal. EF 65%. Right ventricular systolic pressure 46mm HG consistent with moderate pulmonary hypertension. Diastolic dysfunction. 04/01/2018 IV Lasix for right sided heart failure. Wayne catheter. 04/02/2018 Kidney function stable. 04/03/2018 Discharge on BiPAP, still short of breath with minimal exertion. Lasix 40MG IV Q8H transitioned to Lasix 60MG twice daily. BiPAP at night for chronic respiratory failure. 04/04/2018 Admit to TCU with debility, here for rehabilitation, strengthening, prior to discharge home with significant other. Past Medical History Past Medical History (Chronic Problems): Chronic Problems (Last Updated 01/13/18 @ 11:59 by Gracie Baxter) Chronic renal insufficiency, stage III (moderate) (Chronic) Leg wound, right (Chronic) Venous insufficiency (chronic) (peripheral) (Chronic) Paroxysmal A-fib (Chronic) Asthma (Chronic) Sleep apnea (Chronic) Pulmonary hypertension (Chronic) Chronic kidney disease (Chronic) Chronic kidney disease (CKD) stage G1/A2, glomerular filtration rate (GFR) equal to or greater than 90 mL/min/1.73 square meter and albuminuria creatinine ratio between 30-299 mg/g (Chronic) Atrial fibrillation (Chronic) Morbid obesity (Chronic) Diabetes mellitus (Chronic) Polyneuropathy (Chronic) Depression (Chronic) Vitamin D deficiency (Chronic) Allergic rhinitis (Chronic) 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) Diabetic neuropathy (Chronic) Obesity (Chronic) Hypertension (Chronic) Hyperlipidemia (Chronic) Diabetes mellitus type 2 in obese (Chronic) Medical History: Medical History (Last Updated 01/13/18 @ 11:59 by Gracie Baxter) Arthritis M19.90 Diabetes E11.9 Hay fever J30.1 Knee pain M25.569 Hypertension I10 Allergies aspirin Allergy (Unknown, Verified 03/31/18 09:32) Unknown ibuprofen Allergy (Verified 03/31/18 09:32) Unknown sulfamethoxazole [From Septra] Allergy (Verified 03/31/18 09:32) Unknown trimethoprim [From Aprra] Allergy (Verified 03/31/18 09:32) Unknown Home Medications: Ambulatory Orders Medication Instructions Recorded Gabapentin [Neurontin] 600 mg PO TIDCM 11/08/14 Losartan Potassium [Cozaar] 100 mg PO DAILY 11/08/14 Sertraline HCl [Zoloft] 50 mg PO DAILY 11/08/14 Simvastatin [Zocor] 20 mg PO QHS 11/08/14 Warfarin [Coumadin] 2.5 mg PO DAILY 01/13/18 ergocalciferol (vitamin D2) 50,000 50,000 unit PO QMONTH 30 Days #1 01/13/18 unit capsule linagliptin 5 mg tablet 5 mg PO DAILY 30 Days #30 01/13/18 Amlodipine [Norvasc] 5 mg PO DAILY 03/31/18 Sodium Chloride [Saline Nasal Mist] 1 spray NASAL BID 03/31/18 Albuterol IH (ProAir) [Proair Hfa] 2 inh INHALATION 4X/DAY #1 inhaler 04/03/18 Insulin Glargine [Lantus SoloStar 55 units SC QHS pen 04/03/18 Pen] Potassium Chloride 20 meq PO BID #120 tablet.er 04/03/18 Furosemide [Lasix] 60 mg PO BID@1000,1800 tablet 04/04/18 Surgical History: Surgical History (Last Updated 01/13/18 @ 12:00 by Gracie Baxter) History of knee replacement procedure of right knee Z96.651 Hx of section Z98.891 Surgical History: total knee arthroplasty - Right; lumbar disc surgery, - - . 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 Lives: Spouse/ Significant Other Smoking Status: Never smoker Tobacco Use: Secondhand Alcohol: None Drugs: None - *Family History Maternal Family History: Family History (Last Updated 01/13/18 @ 12:00 by Gracie Baxter) Other Diabetes Heart disease History Items: Heart Disease Paternal Family History: Family History (Last Updated 01/13/18 @ 12:00 by Gracie Baxter) Other Diabetes Heart disease History Items: Heart Disease Sibling Family History: Family History (Last Updated 01/13/18 @ 12:00 by Gracie Baxter) Other Diabetes Heart disease History Items: Heart Disease Review of Systems Constitutional: Denies: Chills, Fever, Weight Change HEENT: Denies: Head Aches, Sinus Congestion, Sinus Drainage Cardiovascular: Denies: Chest Pain, Palpitations Respiratory: Reports: Shortness of Breath, Shortness of breath at rest, Shortness of breath upon exertion. Denies: Cough, Sputum production Gastrointestinal: Denies: Abdominal Pain, Nausea, Vomiting Genitourinary: Denies: Dysuria Musculoskeletal: Denies: Joint Pain, Joint Tenderness Skin: Denies: Rash, Wounds Neurological: Denies: Numbness, Tingling, Focal weakness Psychiatric: Denies: Anxiety, Depression, Homicidal Ideations, Suicidal Ideations Hematologic/ Lymphatic: Denies: Easy Bruising, Easy Bleeding VTE Information - Inpt Only VTE Present on Admission: No VTE Mechan Device Prophylaxis: Knee High WILLIAN Hose VTE Pharm Prophylaxis ordered?: No Reason prophylaxis not ordered:: Treatment Not Indicated Patient Problems: Active and Suspected Problems (Last Updated 01/13/18 @ 11:59 by Gracie Baxter) Acute respiratory failure (Acute) Right-sided congestive heart failure (Acute) - Physical Exam General: Alert, Oriented x3, Cooperative HEENT: Atraumatic, PERRLA, EOMI, Normocephalic Neck: Supple, No JVD, Negative Carotid Bruits Lungs: Clear to auscultation, Normal air movement Cardiovascular: Regular rate, No murmurs Abdomen: Bowel Sounds Present, Soft, Non Tender Extremities: No edema, Capillary Refill Less than 3 Seconds Skin: No rashes, No breakdown Musculoskeletal: No Tenderness to Palpation of Joints or Extremities Neurological: Cranial nerves II-XII grossly intact Psych/Mental Status: Normal Affect, Appropriate Vital Signs Temp Pulse Resp BP Pulse Ox 96.9 F L 72 18 148/66 H 94 04/04/18 16:16 04/04/18 16:16 04/04/18 16:16 04/04/18 16:16 04/04/18 16:16 Oxygen Flow Rate (L/min) 4 Oxygen Delivery Method Nasal Cannula Weight: 148.3 kg Body Mass Index (BMI) 51.2 Intake and Output for Last 24 Hours 04/02/18 04/03/18 04/04/18 23:59 23:59 23:59 Intake Total 160 / 160 Balance 160 / 160 POC Glucose 04/04/18 16:49 POC Glucose 137 H Assessment/Plan All Active Problems (Last Updated 01/13/18 @ 11:59 by Gracie Baxter) Open leg wound (Acute) ESPERANZA (acute kidney injury) (Acute) CHF (congestive heart failure) (Acute) DIEGO (obstructive sleep apnea) (Acute) Acute respiratory failure (Acute) Right-sided congestive heart failure (Acute) Right leg pain (Acute) Cellulitis of right lower extremity (Acute) Acute respiratory failure with hypoxia (Acute) 67 year old female with below past medical history hospitalized for acute respiratory failure secondary to cor pulmonale from untreated sleep apnea, complicated by acute kidney injury, morbid obesity, admitted to TCU with debility, here for rehabilitation, strengthening, prior to discharge home with significant other. Debility - PT/OT. Pain - Tylenol 1000MG Q8H PRN mild pain. Bowel - Miralax 17GM daily, Senna/colace 1 tablet BID, Dulcolax 10MG PO daily PRN. Pneumonia vaccination - Administer Prevnar 13 and/or Pneumovax 23 as necessary. DVT prophylaxis - not necessary, already on warfarin. Asthma - Albuterol 2 puffs 4x/day. Hypertension - Losartan 100MG daily, Amlodipine 5MG daily. Hyperlipidemia Atorvastatin 10MG QHS, consider high intensity statin like Atorvastatin 40MG QHS. Vitamin D deficiency - D2 50,000 units per month. Right sided heart failure - Losartan 100MG daily, Lasix 60MG BID, treat sleep apnea, underlying cause. 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 Polyneuropathy - Gabapentin 600MG TID. Diabetes Mellitus II - Goal A1c < 7.0, A1c 7.5, Tradjenta 5MG daily, Lantus 55 units QHS, Losartan 100MG daily. Tinea Corporis - Nystatin powder TID under breasts, folds. Hypokalemia - KCL 20MEQ BID. Depression - Sertraline 50MG daily. Dry nose - [place] Nasal [place] 1 spray BID. Atrial Fibrillation - Rate controlled without rate limiting agent, Warfarin 2.5MG daily, follow INR. Obstructive sleep apnea - BiPAP at night, future non-compliance with BiPAP therapy will result in early demise. Morbid Obesity - consider bariatric surgery to have long high quality life. I suspect bariatric surgery would save her life and she would require no medications at all.
--- NOTE | 2018-04-04 20:51 | HP.PCM_ITS ---
Problem List (1) Acute respiratory failure Status: Acute (2) Right-sided congestive heart failure Status: Acute (3) Asthma Status: Chronic (4) Sleep apnea Status: Chronic (5) Pulmonary hypertension Status: Chronic (6) Chronic kidney disease Status: Chronic (7) Chronic kidney disease (CKD) stage G1/A2, glomerular filtration rate (GFR) equal to or greater than 90 mL/min/1.73 square meter and albuminuria creatinine ratio between 30-299 mg/g Status: Chronic (8) Atrial fibrillation Status: Chronic (9) Morbid obesity Status: Chronic (10) Diabetes mellitus Status: Chronic (11) Polyneuropathy Status: Chronic (12) Depression Status: Chronic (13) Vitamin D deficiency Status: Chronic (14) Allergic rhinitis Status: Chronic (15) ESPERANZA (acute kidney injury) Status: Acute (16) Hypertension Status: Chronic (17) Hyperlipidemia Status: Chronic History of Present Illness Date of Admission: 04/04/18 Chief Complaint: Here for rehabilitation, strengthening, prior to discharge home with significant other. The patient is a 67 year old Female with below past medical history presented to [facility] Emergency Department 03/31/2018 with shortness of breath. 03/31/2018 Chest X-ray low lung volumes, no focal consolidation. 03/31/2018 EKG sinus rhythm with 1st degree AV block, low voltage QRS. Shortness of breath x 2 days, worsening. Dyspnea on exertion, cough with white sputum. Inhaler not working. Pulsox 60% on RA. Hemoglobin 11, Cr 2.28, Troponin normal. D-dimer 0.85, BNP 104. Lasix given for congestive heart failure, patient has peripheral edema. 03/31/2018 VQ scan very low probability for pulmonary embolism. 03/31/2018 Admit to Hospital. IV Lasix for heart failure. Consult pulmonary medicine. Albuterol, Duoneb for respiratory failure. 03/31/2018 CT chest with contrast showed vascular congestion/heart failure. 04/01/2018 Dr. Caldwell/Marion Guzmán thought shortness of breath secondary to cor pulmonale. Recommend Echo, BiPAP, oxygen, diuresis. 04/01/2018 Echo left ventricular systolic function normal. EF 65%. Right ventricular systolic pressure 46mm HG consistent with moderate pulmonary hypertension. Diastolic dysfunction. 04/01/2018 IV Lasix for right sided heart failure. Wayne catheter. 04/02/2018 Kidney function stable. 04/03/2018 Discharge on BiPAP, still short of breath with minimal exertion. Lasix 40MG IV Q8H transitioned to Lasix 60MG twice daily. BiPAP at night for chronic respiratory failure. 04/04/2018 Admit to TCU with debility, here for rehabilitation, strengthening, prior to discharge home with significant other. Past Medical History Past Medical History (Chronic Problems): Chronic Problems (Last Updated 01/13/18 @ 11:59 by Gracie Baxter) Chronic renal insufficiency, stage III (moderate) (Chronic) Leg wound, right (Chronic) Venous insufficiency (chronic) (peripheral) (Chronic) Paroxysmal A-fib (Chronic) Asthma (Chronic) Sleep apnea (Chronic) Pulmonary hypertension (Chronic) Chronic kidney disease (Chronic) Chronic kidney disease (CKD) stage G1/A2, glomerular filtration rate (GFR) equal to or greater than 90 mL/min/1.73 square meter and albuminuria creatinine ratio between 30-299 mg/g (Chronic) Atrial fibrillation (Chronic) Morbid obesity (Chronic) Diabetes mellitus (Chronic) Polyneuropathy (Chronic) Depression (Chronic) Vitamin D deficiency (Chronic) Allergic rhinitis (Chronic) 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) Diabetic neuropathy (Chronic) Obesity (Chronic) Hypertension (Chronic) Hyperlipidemia (Chronic) Diabetes mellitus type 2 in obese (Chronic) Medical History: Medical History (Last Updated 01/13/18 @ 11:59 by Gracie Baxter) Arthritis M19.90 Diabetes E11.9 Hay fever J30.1 Knee pain M25.569 Hypertension I10 Allergies aspirin Allergy (Unknown, Verified 03/31/18 09:32) Unknown ibuprofen Allergy (Verified 03/31/18 09:32) Unknown sulfamethoxazole [From Septra] Allergy (Verified 03/31/18 09:32) Unknown trimethoprim [From Aprra] Allergy (Verified 03/31/18 09:32) Unknown Home Medications: Ambulatory Orders Medication Instructions Recorded Gabapentin [Neurontin] 600 mg PO TIDCM 11/08/14 Losartan Potassium [Cozaar] 100 mg PO DAILY 11/08/14 Sertraline HCl [Zoloft] 50 mg PO DAILY 11/08/14 Simvastatin [Zocor] 20 mg PO QHS 11/08/14 Warfarin [Coumadin] 2.5 mg PO DAILY 01/13/18 ergocalciferol (vitamin D2) 50,000 50,000 unit PO QMONTH 30 Days #1 01/13/18 unit capsule linagliptin 5 mg tablet 5 mg PO DAILY 30 Days #30 01/13/18 Amlodipine [Norvasc] 5 mg PO DAILY 03/31/18 Sodium Chloride [Saline Nasal Mist] 1 spray NASAL BID 03/31/18 Albuterol IH (ProAir) [Proair Hfa] 2 inh INHALATION 4X/DAY #1 inhaler 04/03/18 Insulin Glargine [Lantus SoloStar 55 units SC QHS pen 04/03/18 Pen] Potassium Chloride 20 meq PO BID #120 tablet.er 04/03/18 Furosemide [Lasix] 60 mg PO BID@1000,1800 tablet 04/04/18 Surgical History: Surgical History (Last Updated 01/13/18 @ 12:00 by Gracie Baxter) History of knee replacement procedure of right knee Z96.651 Hx of section Z98.891 Surgical History: total knee arthroplasty - Right; lumbar disc surgery, - - C- section. 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 Lives: Spouse/ Significant Other Smoking Status: Never smoker Tobacco Use: Secondhand Alcohol: None Drugs: None - *Family History Maternal Family History: Family History (Last Updated 01/13/18 @ 12:00 by Gracie Baxter) Other Diabetes Heart disease History Items: Heart Disease Paternal Family History: Family History (Last Updated 01/13/18 @ 12:00 by Gracie Baxter) Other Diabetes Heart disease History Items: Heart Disease Sibling Family History: Family History (Last Updated 01/13/18 @ 12:00 by Gracie Baxter) Other Diabetes Heart disease History Items: Heart Disease Review of Systems Constitutional: Denies: Chills, Fever, Weight Change HEENT: Denies: Head Aches, Sinus Congestion, Sinus Drainage Cardiovascular: Denies: Chest Pain, Palpitations Respiratory: Reports: Shortness of Breath, Shortness of breath at rest, Shortness of breath upon exertion. Denies: Cough, Sputum production Gastrointestinal: Denies: Abdominal Pain, Nausea, Vomiting Genitourinary: Denies: Dysuria Musculoskeletal: Denies: Joint Pain, Joint Tenderness Skin: Denies: Rash, Wounds Neurological: Denies: Numbness, Tingling, Focal weakness Psychiatric: Denies: Anxiety, Depression, Homicidal Ideations, Suicidal Ideations Hematologic/ Lymphatic: Denies: Easy Bruising, Easy Bleeding VTE Information - Inpt Only VTE Present on Admission: No VTE Mechan Device Prophylaxis: Knee High WILLIAN Hose VTE Pharm Prophylaxis ordered?: No Reason prophylaxis not ordered:: Treatment Not Indicated Patient Problems: Active and Suspected Problems (Last Updated 01/13/18 @ 11:59 by Gracie Baxter) Acute respiratory failure (Acute) Right-sided congestive heart failure (Acute) - Physical Exam General: Alert, Oriented x3, Cooperative HEENT: Atraumatic, PERRLA, EOMI, Normocephalic Neck: Supple, No JVD, Negative Carotid Bruits Lungs: Clear to auscultation, Normal air movement Cardiovascular: Regular rate, No murmurs Abdomen: Bowel Sounds Present, Soft, Non Tender Extremities: No edema, Capillary Refill Less than 3 Seconds Skin: No rashes, No breakdown Musculoskeletal: No Tenderness to Palpation of Joints or Extremities Neurological: Cranial nerves II-XII grossly intact Psych/Mental Status: Normal Affect, Appropriate Vital Signs Temp Pulse Resp BP Pulse Ox 96.9 F L 72 18 148/66 H 94 04/04/18 16:16 04/04/18 16:16 04/04/18 16:16 04/04/18 16:16 04/04/18 16:16 Oxygen Flow Rate (L/min) 4 Oxygen Delivery Method Nasal Cannula Weight: 148.3 kg Body Mass Index (BMI) 51.2 Intake and Output for Last 24 Hours 04/02/18 04/03/18 04/04/18 23:59 23:59 23:59 Intake Total 160 / 160 Balance 160 / 160 POC Glucose 04/04/18 16:49 POC Glucose 137 H Assessment/Plan All Active Problems (Last Updated 01/13/18 @ 11:59 by Gracie Baxter) Open leg wound (Acute) ESPERANZA (acute kidney injury) (Acute) CHF (congestive heart failure) (Acute) DIEGO (obstructive sleep apnea) (Acute) Acute respiratory failure (Acute) Right-sided congestive heart failure (Acute) Right leg pain (Acute) Cellulitis of right lower extremity (Acute) Acute respiratory failure with hypoxia (Acute) 67 year old female with below past medical history hospitalized for acute respiratory failure secondary to cor pulmonale from untreated sleep apnea, complicated by acute kidney injury, morbid obesity, admitted to TCU with debility, here for rehabilitation, strengthening, prior to discharge home with significant other. * Debility - PT/OT. * Pain - Tylenol 1000MG Q8H PRN mild pain. * Bowel - Miralax 17GM daily, Senna/colace 1 tablet BID, Dulcolax 10MG PO daily PRN. * Pneumonia vaccination - Administer Prevnar 13 and/or Pneumovax 23 as necessary. * DVT prophylaxis - not necessary, already on warfarin. * Asthma - Albuterol 2 puffs 4x/day. * Hypertension - Losartan 100MG daily, Amlodipine 5MG daily. * Hyperlipidemia Atorvastatin 10MG QHS, consider high intensity statin like Atorvastatin 40MG QHS. * Vitamin D deficiency - D2 50,000 units per month. * Right sided heart failure - Losartan 100MG daily, Lasix 60MG BID, treat sleep apnea, underlying cause. 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 * Polyneuropathy - Gabapentin 600MG TID. * Diabetes Mellitus II - Goal A1c < 7.0, A1c 7.5, Tradjenta 5MG daily, Lantus 55 units QHS, Losartan 100MG daily. * Tinea Corporis - Nystatin powder TID under breasts, folds. * Hypokalemia - KCL 20MEQ BID. * Depression - Sertraline 50MG daily. * Dry nose - [place] Nasal [place] 1 spray BID. * Atrial Fibrillation - Rate controlled without rate limiting agent, Warfarin 2.5MG daily, follow INR. * Obstructive sleep apnea - BiPAP at night, future non-compliance with BiPAP therapy will result in early demise. * Morbid Obesity - consider bariatric surgery to have long high quality life. I suspect bariatric surgery would save her life and she would require no medications at all.
[2018-04-04 21:21] LABS: Bedside Glucose 223 mg/dL (70-110)
[2018-04-04] MEDS: Atorvastatin Calcium 10 MG Tablet PO (23:05)
[2018-04-05] MEDS: Losartan Potassium 100 MG Tablet PO (05:24)
[2018-04-05] MEDS: LINAGLIPTIN 5 MG TABLET PO (05:24)
[2018-04-05] MEDS: amLODIPine 5 MG Tablet PO (05:24)
[2018-04-05] MEDS: Sodium Chloride 0.65% 1 SPRAY SPRAY.BTL NASAL ×2 (05:25→17:48)
[2018-04-05] MEDS: Nystatin Powder 15gm Bottle 1 APPLIC TOPICAL ×3 (05:29→21:03)
[2018-04-05] MEDS: Sertraline 50 MG Tablet PO (06:33)
[2018-04-05 06:40] LABS: Bedside Glucose 146 mg/dL (70-110)
--- NOTE | 2018-04-05 06:57 | NURSING ---
Flushed pt IV in L hand no resistance remains patent. IV put in on 03/31/18. Verified flushes by Kelly PENNINGTON.
[2018-04-05 07:53] LABS: Absolute Lymphocyte Count 1.42 X10^3/ul (0.83-4.51); Absolute Neutrophil Count 4.2 X10^3/uL (2.0-7.7); Basophil# 0.02 X10^3/uL; Basophil% 0.3 % (0-1); Eosinophil# 0.19 X10^3/uL; Hematocrit 35.8 % (37-47); Hemoglobin 10.3 g/dl (12.0-15.0); Lymphocyte # 1.42 X10^3/ul (4.0); Lymphocyte % 22.4 % (19-41); Mean Corp Hgb Conc 28.8 g/gl (32-36); Mean Corpuscular Hgb 28.2 pg (27.0-32.0); Mean Corpuscular Volume 98.1 fL (81-99); Mean Platelet Vol. 10.3 fl (6.2-12.0); Monocyte% 7.9 % (0-10); Neutrophil # 4.19 X10^3/uL (2.7-7.7); Neutrophil % 66.2 % (47-70); POSITIVE COUNT NO; POSITIVE DIFFERENTIAL NO; POSITIVE MORPHOLOGY NO; Platelet Count 183 K/mm3 (150-450); RBC Distribution Width CV 16.1 % (11.6-14.6); RBC Distribution Width SD 57.2 fl (35.1-43.9); Red Blood Count 3.65 M/mm3 (4.2-5.4); White Blood Count 6.3 K/mm3 (4.4-11.0)
[2018-04-05 07:56] LABS: Prothrombin Time (Protime)PT. 22.6 SECONDS (11.7-14.9)
[2018-04-05] MEDS: Gabapentin 600 MG Tablet PO ×3 (08:23→17:47)
[2018-04-05 08:24] LABS: Anion Gap 8 (5-15); BUN 57 mg/dL (7-18); BUN/Creat Ratio 26.3 RATIO (10-20); Calcium,Total 8.4 mg/dL (8.5-10.1); Chloride 104 mmol/L (98-107); Creatinine, Serum 2.17 mg/dL (0.55-1.02); EST Glomerular Filtration Rate 24 mL/min (>60); Est Glom Filt Rate - Afr Amer 29 mL/min (>60); Estimated Creatinine Clearance 25.13 ml/min; Glucose 134 mg/dL (74-106); Potassium 5.2 mmol/L (3.5-5.1); Sodium Level 142 mmol/L (136-145)
[2018-04-05] MEDS: Furosemide 20 MG Tablet 60 MG PO ×2 (09:23→17:48)
[2018-04-05 09:30] VITALS: PULSE 70; RESP 18; O2SAT 94
[2018-04-05] MEDS: Tuberculin,Purif.prot.deriv. 50 TU/ML Vial 5 ML ID (11:43)
[2018-04-05 11:51] LABS: Bedside Glucose 154 mg/dL (70-110)
--- NOTE | 2018-04-05 12:05 | NURSING ---
Dr. Vazquez reviewed AM labs, K-dur discontinued, recheck BMP on 04/06, Ferrex started. Pt updated on all.
[2018-04-05 16:00] VITALS: BP 143/74; PULSE 71; RESP 18; TEMP 37; O2SAT 93
[2018-04-05 17:01] LABS: Bedside Glucose 132 mg/dL (70-110)
[2018-04-05 21:06] LABS: Bedside Glucose 183 mg/dL (70-110)
[2018-04-05] MEDS: Atorvastatin Calcium 10 MG Tablet PO (21:07)
--- NOTE | 2018-04-05 21:25 | NURSING ---
Pt had pain and infiltrated while flushing with 10 ml of saline. Removed IV from left hand a little swelling ice given. IV intact when removed dressing to area. Carrie PENNINGTON aware and verified.
[2018-04-06 04:06] LABS: Bedside Glucose 38 mg/dL (70-110)
--- NOTE | 2018-04-06 04:12 | NURSING ---
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 Noted bleeding to pt outer lip area on the left side of lip a pin hole size. Checked tongue to make sure pt didn't bite tongue since she had blood in the mouth also. No bite nereida noted in mouth area. Applied pressure and checked BS 38 given orange juice and peanut butter and cracker at this time will check again in 15 minute. Notified GORGE Butler of BS and that pt was given snacks and will recheck again. Pt stated that she woke up and felt her lips dry and rubbed them together and noted lip was bleeding.
[2018-04-06 04:41] LABS: Bedside Glucose 67 mg/dL (70-110)
--- NOTE | 2018-04-06 04:47 | NURSING ---
Rechecked pt BS 67 given apple juice and some yoguart at this time and will recheck again. Pt states no more shakiness and felt better. Outer lip area on the left side is no longer bleeding.
[2018-04-06] MEDS: LINAGLIPTIN 5 MG TABLET PO (04:50)
[2018-04-06] MEDS: Sodium Chloride 0.65% 1 SPRAY SPRAY.BTL NASAL ×2 (04:50→17:52)
[2018-04-06] MEDS: amLODIPine 5 MG Tablet PO (04:51)
[2018-04-06] MEDS: Sertraline 50 MG Tablet PO (04:51)
[2018-04-06] MEDS: Losartan Potassium 100 MG Tablet PO (04:51)
[2018-04-06] MEDS: Nystatin Powder 15gm Bottle 1 APPLIC TOPICAL ×3 (04:55→20:56)
--- NOTE | 2018-04-06 05:47 | NURSING ---
pt BS rechecked 108 resting comfortable without any symptoms.
[2018-04-06 05:50] LABS: Bedside Glucose 108 mg/dL (70-110)
[2018-04-06 07:02] LABS: Anion Gap 9 (5-15); BUN 55 mg/dL (7-18); BUN/Creat Ratio 25.8 RATIO (10-20); Calcium,Total 8.3 mg/dL (8.5-10.1); Chloride 103 mmol/L (98-107); Creatinine, Serum 2.13 mg/dL (0.55-1.02); EST Glomerular Filtration Rate 25 mL/min (>60); Est Glom Filt Rate - Afr Amer 30 mL/min (>60); Estimated Creatinine Clearance 25.61 ml/min; Glucose 106 mg/dL (74-106); Potassium 4.9 mmol/L (3.5-5.1); Sodium Level 143 mmol/L (136-145)
[2018-04-06] MEDS: Iron Polysaccharide Complex 150 MG CAPSULE PO (07:40)
[2018-04-06] MEDS: Gabapentin 600 MG Tablet PO ×3 (07:40→17:51)
[2018-04-06 08:30] VITALS: PULSE 72; RESP 18; O2SAT 91
[2018-04-06] MEDS: Furosemide 20 MG Tablet 60 MG PO ×2 (09:00→17:52)
[2018-04-06 11:46] LABS: Bedside Glucose 180 mg/dL (70-110)
--- NOTE | 2018-04-06 13:30 | NURSING ---
Dr. Vazquez reviewed blood sugars, Levemir decreased, pt updated
[2018-04-06 15:29] VITALS: BP 143/76; PULSE 74; RESP 20; TEMP 36.7; O2SAT 94
--- NOTE | 2018-04-06 15:42 | NURSING ---
Dr. Vazquez reviewed AM labs, NNO
[2018-04-06 16:56] LABS: Bedside Glucose 149 mg/dL (70-110)
[2018-04-06] MEDS: Atorvastatin Calcium 10 MG Tablet PO (20:52)
[2018-04-06 21:15] LABS: Bedside Glucose 205 mg/dL (70-110)
[2018-04-07] MEDS: LINAGLIPTIN 5 MG TABLET PO (06:38)
[2018-04-07] MEDS: amLODIPine 5 MG Tablet PO (06:38)
[2018-04-07] MEDS: Sertraline 50 MG Tablet PO (06:38)
[2018-04-07] MEDS: Losartan Potassium 100 MG Tablet PO (06:38)
[2018-04-07] MEDS: Sodium Chloride 0.65% 1 SPRAY SPRAY.BTL NASAL ×2 (06:39→17:38)
[2018-04-07] MEDS: Nystatin Powder 15gm Bottle 1 APPLIC TOPICAL ×3 (06:42→20:58)
[2018-04-07 06:46] LABS: Bedside Glucose 113 mg/dL (70-110)
[2018-04-07 07:45] VITALS: O2SAT 95
[2018-04-07 07:50] VITALS: O2SAT 93
[2018-04-07] MEDS: Iron Polysaccharide Complex 150 MG CAPSULE PO (08:00)
[2018-04-07] MEDS: Gabapentin 600 MG Tablet PO ×3 (08:00→17:35)
[2018-04-07] MEDS: Furosemide 20 MG Tablet 60 MG PO ×2 (09:12→17:38)
[2018-04-07 11:56] LABS: Bedside Glucose 93 mg/dL (70-110)
[2018-04-07 15:16] VITALS: BP 143/55; PULSE 68; RESP 22; TEMP 35.6; O2SAT 94
[2018-04-07 17:06] LABS: Bedside Glucose 172 mg/dL (70-110)
[2018-04-07] MEDS: Atorvastatin Calcium 10 MG Tablet PO (20:58)
[2018-04-07 21:06] LABS: Bedside Glucose 220 mg/dL (70-110)
[2018-04-08 05:40] LABS: International Normalized Ratio 1.6; Prothrombin Time (Protime)PT. 18.8 SECONDS (11.7-14.9)
[2018-04-08] MEDS: Losartan Potassium 100 MG Tablet PO (06:20)
[2018-04-08] MEDS: Sertraline 50 MG Tablet PO (06:20)
[2018-04-08] MEDS: amLODIPine 5 MG Tablet PO (06:20)
[2018-04-08] MEDS: Sodium Chloride 0.65% 1 SPRAY SPRAY.BTL NASAL ×2 (06:20→17:23)
[2018-04-08] MEDS: LINAGLIPTIN 5 MG TABLET PO (06:20)
[2018-04-08] MEDS: Nystatin Powder 15gm Bottle 1 APPLIC TOPICAL ×3 (06:23→21:01)
[2018-04-08 06:36] LABS: Bedside Glucose 160 mg/dL (70-110)
[2018-04-08 07:05] VITALS: O2SAT 95
[2018-04-08] MEDS: Iron Polysaccharide Complex 150 MG CAPSULE PO (08:08)
[2018-04-08] MEDS: Gabapentin 600 MG Tablet PO ×3 (08:08→17:24)
[2018-04-08] MEDS: Furosemide 20 MG Tablet 60 MG PO ×2 (09:13→17:24)
--- NOTE | 2018-04-08 10:21 | PCM.PN.RX ---
<Live Mendez D - Last Filed: 04/08/18 10:21> Progress Note - Pharmacy Subjective: TCU Admission Objective: Allergies aspirin Allergy (Unknown, Verified 03/31/18 09:32) Unknown ibuprofen Allergy (Verified 03/31/18 09:32) Unknown sulfamethoxazole [From ] Allergy (Verified 03/31/18 09:32) Unknown trimethoprim [From ] Allergy (Verified 03/31/18 09:32) Unknown Current Medications Generic Name Dose Route Start Last Admin Trade Name Freq PRN Reason Stop Dose Admin Acetaminophen 1,000 mg 04/04/18 21:30 Tylenol PO Q8H PRN PRN MILD PAIN (1-11/02) Albuterol Sulfate 2 puff 04/04/18 17:00 04/08/18 06:19 Ventolin Hfa (Sp) INHALATION 2 puff 4X/DAY ASHLIE Administration Amlodipine Besylate 5 mg 04/05/18 06:00 04/08/18 06:20 Norvasc PO 5 mg DAILY ASHLIE Administration Atorvastatin Calcium 10 mg 04/04/18 22:00 04/07/18 20:58 Lipitor PO 10 mg QHS ASHLIE Administration Bisacodyl 10 mg 04/04/18 16:22 Dulcolax PO DAILY PRN CONSTIPATION Ergocalciferol 50,000 unit 04/26/18 10:00 Vitamin D PO Q30D ASHLIE Furosemide 60 mg 04/04/18 18:00 04/08/18 09:13 Lasix PO 60 mg BID@1000,1800 ASHLIE Administration Gabapentin 600 mg 04/04/18 17:45 04/08/18 08:08 Neurontin PO 600 mg TIDCM ASHLIE Administration Insulin Glargine 40 units 04/06/18 22:00 04/07/18 20:59 Lantus (Bkc) SC 40 units QHS ASHLIE Administration Linagliptin 5 mg 04/05/18 06:00 04/08/18 06:20 Tradjenta PO 5 mg DAILY ASHLIE Administration Losartan Potassium 100 mg 04/05/18 06:00 04/08/18 06:20 Cozaar PO 100 mg DAILY ASHLIE Administration Nystatin 1 applic 04/04/18 22:00 04/08/18 06:23 Mycostatin Powder TOPICAL 1 applicatio TID ASHLIE Administration Protocol Polyethylene Glycol 17 gm 04/05/18 06:00 04/08/18 06:24 Miralax PO Not Given DAILY ASHLIE Polysaccharide Iron Complex 150 mg 04/06/18 08:00 04/08/18 08:08 Ferrex 150 PO 150 mg DAILYCM ASHLIE Administration Senna/Docusate Sodium 1 tablet 04/04/18 18:00 04/08/18 06:24 Senokot-S, Anastasiya-Colace PO Not Given BID ASHLIE Sertraline HCl 50 mg 04/05/18 06:00 04/08/18 06:20 Zoloft PO 50 mg DAILY ASHLIE Administration Sodium Chloride 1 spray 04/04/18 18:00 04/08/18 06:20 [place] Nasal [place] NASAL 1 spray BID ASHLIE Administration Tuberculin PPD 5 tu 04/12/18 10:00 Tubersol, Aplisol, Ppd ID 04/12/18 10:01 X1 ONE Warfarin Sodium 3 mg 04/08/18 17:00 Coumadin (Pbkc) PO DAILY@1700 [facility] [place] Problem List (Last Updated 01/13/18 @ 11:59 by Gracie Baxter) Acute respiratory failure (Acute) Right-sided congestive heart failure (Acute) Asthma (Chronic) Sleep apnea (Chronic) Pulmonary hypertension (Chronic) Chronic kidney disease (Chronic) Chronic kidney disease (CKD) stage G1/A2, glomerular filtration rate (GFR) equal to or greater than 90 mL/min/1.73 square meter and albuminuria creatinine ratio between 30-299 mg/g (Chronic) Atrial fibrillation (Chronic) Morbid obesity (Chronic) Diabetes mellitus (Chronic) Polyneuropathy (Chronic) Depression (Chronic) Vitamin D deficiency (Chronic) Allergic rhinitis (Chronic) Vital Signs Temp Pulse Resp BP Pulse Ox 96.0 F L 68 22 H 143/55 H 95 04/07/18 15:16 04/07/18 15:16 04/07/18 15:16 04/07/18 15:16 04/08/18 07:05 Oxygen Flow Rate (L/min) 3 Oxygen Delivery Method Nasal Cannula Weight: 145.32 kg Body Mass Index (BMI) 51.2 Sodium 143 mmol/L (136-145) 04/06/18 06:10 Potassium 4.9 mmol/L (3.5-5.1) 04/06/18 06:10 Chloride 103 mmol/L (98-107) 04/06/18 06:10 Carbon Dioxide 31.0 mmol/L (21.0-32.0) 04/06/18 06:10 Anion Gap 9 (5-15) 04/06/18 06:10 BUN 55 mg/dL (7-18) H 04/06/18 06:10 Creatinine 2.13 mg/dL (0.55-1.02) H 04/06/18 06:10 Est GFR (MDRD) Af Amer 30 mL/min (>60) L 04/06/18 06:10 Est GFR (MDRD) Non-Af 25 mL/min (>60) L 04/06/18 06:10 BUN/Creatinine Ratio 25.8 RATIO (10-20) H 04/06/18 06:10 Glucose 106 mg/dL (74-106) 04/06/18 06:10 Assessment/Plan: 1) Pain APAP for mild pain, gabapentin. Continue to monitor prn medication use, daily pain scores. 2) HTN/AFib/CHF Amlodipine, losartan, furosemide, atorvastatin, warfarin. K initially above goal range but wnl at this time. Continue to monitor BP/HR, renal function, electrolytes, lipids, PT/INR, s/s bleeding/clot. 3) DM2 Insulin glargine, linagliptin. Continue to monitor BGT, s/s hyper/hypoglycemia. 4) Nutrition D, Fe. Continue to monitor clinically. Psychotropic Medications: 5) Depression/Anxiety Sertraline daily. Continue to monitor s/s depression/anxiety. Unnecessary Medications: None Bowel Regimen: 6) Senna/s, PEG, prn bisacodyl. Continue to monitor prn medication use, for constipation/diarrhea. Date of Note:: 04/08/18 - Provider Comments Provider responsibility: Provider responsible to enter orders to implement recommendations <Jagdish Vazquez Chi - Last Filed: 04/08/18 17:48> Progress Note - Pharmacy Subjective: [] Objective: Allergies aspirin Allergy (Unknown, Verified 03/31/18 09:32) Unknown ibuprofen Allergy (Verified 03/31/18 09:32) Unknown sulfamethoxazole [From Septra] Allergy (Verified 03/31/18 09:32) Unknown trimethoprim [From Aprra] Allergy (Verified 03/31/18 09:32) Unknown Current Medications Generic Name Dose Route Start Last Admin Trade Name Freq PRN Reason Stop Dose Admin Acetaminophen 1,000 mg 04/04/18 21:30 Tylenol PO Q8H PRN PRN MILD PAIN (1-310) Albuterol Sulfate 2 puff 04/04/18 17:00 04/08/18 17:23 Ventolin Hfa (Sp) INHALATION 2 puff 4X/DAY ASHLIE Administration Amlodipine Besylate 5 mg 04/05/18 06:00 04/08/18 06:20 Norvasc PO 5 mg DAILY ASHLIE Administration Atorvastatin Calcium 10 mg 04/04/18 22:00 04/07/18 20:58 Lipitor PO 10 mg QHS ASHLIE Administration Bisacodyl 10 mg 04/04/18 16:22 Dulcolax PO DAILY PRN CONSTIPATION Ergocalciferol 50,000 unit 04/26/18 10:00 Vitamin D PO Q30D [facility] Furosemide 60 mg 04/04/18 18:00 04/08/18 17:24 Lasix PO 60 mg BID@1000,1800 ASHLIE Administration Gabapentin 600 mg 04/04/18 17:45 04/08/18 17:24 Neurontin PO 600 mg TIDCM ASHLIE Administration Insulin Glargine 40 units 04/06/18 22:00 04/07/18 20:59 Lantus (Bkc) SC 40 units QHS ASHLIE Administration Linagliptin 5 mg 04/05/18 06:00 04/08/18 06:20 Tradjenta PO 5 mg DAILY ASHLIE Administration Losartan Potassium 100 mg 04/05/18 06:00 04/08/18 06:20 Cozaar PO 100 mg DAILY ASHLIE Administration Nystatin 1 applic 04/04/18 22:00 04/08/18 13:36 Mycostatin Powder TOPICAL 1 applicatio TID [facility] Administration Protocol Polyethylene Glycol 17 gm 04/05/18 06:00 04/08/18 06:24 Miralax PO Not Given DAILY ASHLIE Polysaccharide Iron Complex 150 mg 04/06/18 08:00 04/08/18 08:08 Ferrex 150 PO 150 mg DAILYCM [facility] Administration Senna/Docusate Sodium 1 tablet 04/04/18 18:00 04/08/18 17:27 Senokot-S, Anastasiya-Colace PO Not Given BID [facility] Sertraline HCl 50 mg 04/05/18 06:00 04/08/18 06:20 Zoloft PO 50 mg DAILY ASHLIE Administration Sodium Chloride 1 spray 04/04/18 18:00 04/08/18 17:23 [place] Nasal [place] NASAL 1 spray BID ASHLIE Administration Tuberculin PPD 5 tu 04/12/18 10:00 Tubersol, Aplisol, Ppd ID 04/12/18 10:01 X1 ONE Warfarin Sodium 3 mg 04/08/18 17:00 04/08/18 17:24 Coumadin (Pbkc) PO 3 mg DAILY@1700 [facility] Administration Problem List (Last Updated 01/13/18 @ 11:59 by Gracie Baxter) Acute respiratory failure (Acute) Right-sided congestive heart failure (Acute) Asthma (Chronic) Sleep apnea (Chronic) Pulmonary hypertension (Chronic) Chronic kidney disease (Chronic) Chronic kidney disease (CKD) stage G1/A2, glomerular filtration rate (GFR) equal to or greater than 90 mL/min/1.73 square meter and albuminuria creatinine ratio between 30-299 mg/g (Chronic) Atrial fibrillation (Chronic) Morbid obesity (Chronic) Diabetes mellitus (Chronic) Polyneuropathy (Chronic) Depression (Chronic) Vitamin D deficiency (Chronic) Allergic rhinitis (Chronic) Vital Signs Temp Pulse Resp BP Pulse Ox 98.5 F 72 20 H 151/72 H 93 04/08/18 16:00 04/08/18 16:00 04/08/18 16:00 04/08/18 16:00 04/08/18 16:00 Oxygen Flow Rate (L/min) 3 Oxygen Delivery Method Nasal Cannula Weight: 145.32 kg Body Mass Index (BMI) 51.2 Sodium 143 mmol/L (136-145) 04/06/18 06:10 Potassium 4.9 mmol/L (3.5-5.1) 04/06/18 06:10 Chloride 103 mmol/L (98-107) 04/06/18 06:10 Carbon Dioxide 31.0 mmol/L (21.0-32.0) 04/06/18 06:10 Anion Gap 9 (5-15) 04/06/18 06:10 BUN 55 mg/dL (7-18) H 04/06/18 06:10 Creatinine 2.13 mg/dL (0.55-1.02) H 04/06/18 06:10 Est GFR (MDRD) Af Amer 30 mL/min (>60) L 04/06/18 06:10 Est GFR (MDRD) Non-Af 25 mL/min (>60) L 04/06/18 06:10 BUN/Creatinine Ratio 25.8 RATIO (10-20) H 04/06/18 06:10 Glucose 106 mg/dL (74-106) 04/06/18 06:10 Assessment/Plan: Psychotropic Medications: Unnecessary Medications: Bowel Regimen: - Provider Comments Provider responsibility: Provider responsible to enter orders to implement recommendations Provider Comments to Recommendations by Pharmacy: Agree
[2018-04-08 10:22] VITALS: PULSE 72; RESP 18; O2SAT 95
--- NOTE | 2018-04-08 10:44 | PHA.CONS_ITS ---
<Live Mendez D - Last Filed: 04/08/18 10:21> Progress Note - Pharmacy Subjective: TCU Admission Objective: Allergies aspirin Allergy (Unknown, Verified 03/31/18 09:32) Unknown ibuprofen Allergy (Verified 03/31/18 09:32) Unknown sulfamethoxazole [From ] Allergy (Verified 03/31/18 09:32) Unknown trimethoprim [From ] Allergy (Verified 03/31/18 09:32) Unknown Current Medications Generic Name Dose Route Start Last Admin Trade Name Freq PRN Reason Stop Dose Admin Acetaminophen 1,000 mg 04/04/18 21:30 Tylenol PO Q8H PRN PRN MILD PAIN (1-11/02) Albuterol Sulfate 2 puff 04/04/18 17:00 04/08/18 06:19 Ventolin Hfa (Sp) INHALATION 2 puff 4X/DAY ASHLIE Administration Amlodipine Besylate 5 mg 04/05/18 06:00 04/08/18 06:20 Norvasc PO 5 mg DAILY ASHLIE Administration Atorvastatin Calcium 10 mg 04/04/18 22:00 04/07/18 20:58 Lipitor PO 10 mg QHS ASHLIE Administration Bisacodyl 10 mg 04/04/18 16:22 Dulcolax PO DAILY PRN CONSTIPATION Ergocalciferol 50,000 unit 04/26/18 10:00 Vitamin D PO Q30D ASHLIE Furosemide 60 mg 04/04/18 18:00 04/08/18 09:13 Lasix PO 60 mg BID@1000,1800 ASHLIE Administration Gabapentin 600 mg 04/04/18 17:45 04/08/18 08:08 Neurontin PO 600 mg TIDCM ASHLIE Administration Insulin Glargine 40 units 04/06/18 22:00 04/07/18 20:59 Lantus (Bkc) SC 40 units QHS ASHLIE Administration Linagliptin 5 mg 04/05/18 06:00 04/08/18 06:20 Tradjenta PO 5 mg DAILY ASHLIE Administration Losartan Potassium 100 mg 04/05/18 06:00 04/08/18 06:20 Cozaar PO 100 mg DAILY ASHLIE Administration Nystatin 1 applic 04/04/18 22:00 04/08/18 06:23 Mycostatin Powder TOPICAL 1 applicatio TID ASHLIE Administration Protocol Polyethylene Glycol 17 gm 04/05/18 06:00 04/08/18 06:24 Miralax PO Not Given DAILY ASHLIE Polysaccharide Iron Complex 150 mg 04/06/18 08:00 04/08/18 08:08 Ferrex 150 PO 150 mg DAILYCM ASHLIE Administration Senna/Docusate Sodium 1 tablet 04/04/18 18:00 04/08/18 06:24 Senokot-S, Anastasiya-Colace PO Not Given BID ASHLIE Sertraline HCl 50 mg 04/05/18 06:00 04/08/18 06:20 Zoloft PO 50 mg DAILY ASHLIE Administration Sodium Chloride 1 spray 04/04/18 18:00 04/08/18 06:20 [place] Nasal [place] NASAL 1 spray BID ASHLIE Administration Tuberculin PPD 5 tu 04/12/18 10:00 Tubersol, Aplisol, Ppd ID 04/12/18 10:01 X1 ONE Warfarin Sodium 3 mg 04/08/18 17:00 Coumadin (Pbkc) PO DAILY@1700 [facility] Problem List (Last Updated 01/13/18 @ 11:59 by Gracie Baxter) Acute respiratory failure (Acute) Right-sided congestive heart failure (Acute) Asthma (Chronic) Sleep apnea (Chronic) Pulmonary hypertension (Chronic) Chronic kidney disease (Chronic) Chronic kidney disease (CKD) stage G1/A2, glomerular filtration rate (GFR) equal to or greater than 90 mL/min/1.73 square meter and albuminuria creatinine ratio between 30-299 mg/g (Chronic) Atrial fibrillation (Chronic) Morbid obesity (Chronic) Diabetes mellitus (Chronic) Polyneuropathy (Chronic) Depression (Chronic) Vitamin D deficiency (Chronic) Allergic rhinitis (Chronic) Vital Signs Temp Pulse Resp BP Pulse Ox 96.0 F L 68 22 H 143/55 H 95 04/07/18 15:16 04/07/18 15:16 04/07/18 15:16 04/07/18 15:16 04/08/18 07:05 Oxygen Flow Rate (L/min) 3 Oxygen Delivery Method Nasal Cannula Weight: 145.32 kg Body Mass Index (BMI) 51.2 Sodium 143 mmol/L (136-145) 04/06/18 06:10 Potassium 4.9 mmol/L (3.5-5.1) 04/06/18 06:10 Chloride 103 mmol/L (98-107) 04/06/18 06:10 Carbon Dioxide 31.0 mmol/L (21.0-32.0) 04/06/18 06:10 Anion Gap 9 (5-15) 04/06/18 06:10 BUN 55 mg/dL (7-18) H 04/06/18 06:10 Creatinine 2.13 mg/dL (0.55-1.02) H 04/06/18 06:10 Est GFR (MDRD) Af Amer 30 mL/min (>60) L 04/06/18 06:10 Est GFR (MDRD) Non-Af 25 mL/min (>60) L 04/06/18 06:10 BUN/Creatinine Ratio 25.8 RATIO (10-20) H 04/06/18 06:10 Glucose 106 mg/dL (74-106) 04/06/18 06:10 Assessment/Plan: 1) Pain APAP for mild pain, gabapentin. Continue to monitor prn medication use, daily pain scores. 2) HTN/AFib/CHF Amlodipine, losartan, furosemide, atorvastatin, warfarin. K initially above goal range but wnl at this time. Continue to monitor BP/HR, renal function, electrolytes, lipids, PT/INR, s/s bleeding/clot. 3) DM2 Insulin glargine, linagliptin. Continue to monitor BGT, s/s hyper/ hypoglycemia. 4) Nutrition D, Fe. Continue to monitor clinically. Psychotropic Medications: 5) Depression/Anxiety Sertraline daily. Continue to monitor s/s depression/anxiety. Unnecessary Medications: None Bowel Regimen: 6) Senna/s, PEG, prn bisacodyl. Continue to monitor prn medication use, for constipation/diarrhea. Date of Note:: 04/08/18 - Provider Comments Provider responsibility: Provider responsible to enter orders to implement recommendations <Jagdish Vazquez Chi - Last Filed: 04/08/18 17:48> Progress Note - Pharmacy Subjective: [] Objective: Allergies aspirin Allergy (Unknown, Verified 03/31/18 09:32) Unknown ibuprofen Allergy (Verified 03/31/18 09:32) Unknown sulfamethoxazole [From Septra] Allergy (Verified 03/31/18 09:32) Unknown trimethoprim [From Aprra] Allergy (Verified 03/31/18 09:32) Unknown Current Medications Generic Name Dose Route Start Last Admin Trade Name Freq PRN Reason Stop Dose Admin Acetaminophen 1,000 mg 04/04/18 21:30 Tylenol PO Q8H PRN PRN MILD PAIN (1-310) Albuterol Sulfate 2 puff 04/04/18 17:00 04/08/18 17:23 Ventolin Hfa (Sp) INHALATION 2 puff 4X/DAY ASHLIE Administration Amlodipine Besylate 5 mg 04/05/18 06:00 04/08/18 06:20 Norvasc PO 5 mg DAILY ASHLIE Administration Atorvastatin Calcium 10 mg 04/04/18 22:00 04/07/18 20:58 Lipitor PO 10 mg QHS ASHLIE Administration Bisacodyl 10 mg 04/04/18 16:22 Dulcolax PO DAILY PRN CONSTIPATION Ergocalciferol 50,000 unit 04/26/18 10:00 Vitamin D PO Q30D [facility] Furosemide 60 mg 04/04/18 18:00 04/08/18 17:24 Lasix PO 60 mg BID@1000,1800 ASHLIE Administration Gabapentin 600 mg 04/04/18 17:45 04/08/18 17:24 Neurontin PO 600 mg TIDCM ASHLIE Administration Insulin Glargine 40 units 04/06/18 22:00 04/07/18 20:59 Lantus (Bkc) SC 40 units QHS ASHLIE Administration Linagliptin 5 mg 04/05/18 06:00 04/08/18 06:20 Tradjenta PO 5 mg DAILY ASHLIE Administration Losartan Potassium 100 mg 04/05/18 06:00 04/08/18 06:20 Cozaar PO 100 mg DAILY ASHLIE Administration Nystatin 1 applic 04/04/18 22:00 04/08/18 13:36 Mycostatin Powder TOPICAL 1 applicatio TID [facility] Administration Protocol Polyethylene Glycol 17 gm 04/05/18 06:00 04/08/18 06:24 Miralax PO Not Given DAILY ASHLIE Polysaccharide Iron Complex 150 mg 04/06/18 08:00 04/08/18 08:08 Ferrex 150 PO 150 mg DAILYCM [facility] Administration Senna/Docusate Sodium 1 tablet 04/04/18 18:00 04/08/18 17:27 Senokot-S, Anastasiya-Colace PO Not Given BID [facility] Sertraline HCl 50 mg 04/05/18 06:00 04/08/18 06:20 Zoloft PO 50 mg DAILY ASHLIE Administration Sodium Chloride 1 spray 04/04/18 18:00 04/08/18 17:23 [place] Nasal [place] NASAL 1 spray BID ASHLIE Administration Tuberculin PPD 5 tu 04/12/18 10:00 Tubersol, Aplisol, Ppd ID 04/12/18 10:01 X1 ONE Warfarin Sodium 3 mg 04/08/18 17:00 04/08/18 17:24 Coumadin (Pbkc) PO 3 mg DAILY@1700 [facility] Administration Problem List (Last Updated 01/13/18 @ 11:59 by Gracie Baxter) Acute respiratory failure (Acute) Right-sided congestive heart failure (Acute) Asthma (Chronic) Sleep apnea (Chronic) Pulmonary hypertension (Chronic) Chronic kidney disease (Chronic) Chronic kidney disease (CKD) stage G1/A2, glomerular filtration rate (GFR) equal to or greater than 90 mL/min/1.73 square meter and albuminuria creatinine ratio between 30-299 mg/g (Chronic) Atrial fibrillation (Chronic) Morbid obesity (Chronic) Diabetes mellitus (Chronic) Polyneuropathy (Chronic) Depression (Chronic) Vitamin D deficiency (Chronic) Allergic rhinitis (Chronic) Vital Signs Temp Pulse Resp BP Pulse Ox 98.5 F 72 20 H 151/72 H 93 04/08/18 16:00 04/08/18 16:00 04/08/18 16:00 04/08/18 16:00 04/08/18 16:00 Oxygen Flow Rate (L/min) 3 Oxygen Delivery Method Nasal Cannula Weight: 145.32 kg Body Mass Index (BMI) 51.2 Sodium 143 mmol/L (136-145) 04/06/18 06:10 Potassium 4.9 mmol/L (3.5-5.1) 04/06/18 06:10 Chloride 103 mmol/L (98-107) 04/06/18 06:10 Carbon Dioxide 31.0 mmol/L (21.0-32.0) 04/06/18 06:10 Anion Gap 9 (5-15) 04/06/18 06:10 BUN 55 mg/dL (7-18) H 04/06/18 06:10 Creatinine 2.13 mg/dL (0.55-1.02) H 04/06/18 06:10 Est GFR (MDRD) Af Amer 30 mL/min (>60) L 04/06/18 06:10 Est GFR (MDRD) Non-Af 25 mL/min (>60) L 04/06/18 06:10 BUN/Creatinine Ratio 25.8 RATIO (10-20) H 04/06/18 06:10 Glucose 106 mg/dL (74-106) 04/06/18 06:10 Assessment/Plan: Psychotropic Medications: Unnecessary Medications: Bowel Regimen: - Provider Comments Provider responsibility: Provider responsible to enter orders to implement recommendations Provider Comments to Recommendations by Pharmacy: Agree
[2018-04-08 11:06] LABS: Bedside Glucose 145 mg/dL (70-110)
--- NOTE | 2018-04-08 11:36 | CASEMGMT ---
Brief interview for mental status (BIMS) and resident mood interview (PHQ-9) completed on this day. BIMS score 15. PHQ-9 score 10/22
--- NOTE | 2018-04-08 11:38 | NURSING ---
Dr. Vazquez reviewed labs this morning, no new orders.
[2018-04-08 16:00] VITALS: BP 151/72; PULSE 72; RESP 20; TEMP 36.9; O2SAT 93
[2018-04-08 17:00] LABS: Bedside Glucose 142 mg/dL (70-110)
--- NOTE | 2018-04-08 17:23 | NURSING ---
Bed Bug Found on patient at this time. Salima Order Dispatcher Chief and Barry from [facility] both aware.
--- NOTE | 2018-04-08 17:27 | NURSING ---
WHILE SCANNING PT WRIST BAND, THIS NURSE SEEN A BEDBUG RUN ACROSS PT SHIRT. CAUGHT AND PLACED IN CONTAINER. REPORTED TO HEALTH SERVICES DIRECTOR AND CHARGE NURSE, GORGE SOTELO
[2018-04-08 20:55] LABS: Bedside Glucose 181 mg/dL (70-110)
[2018-04-08] MEDS: Atorvastatin Calcium 10 MG Tablet PO (21:01)
[2018-04-09 01:21] LABS: Bedside Glucose 206 mg/dL (70-110)
[2018-04-09] MEDS: Losartan Potassium 100 MG Tablet PO (05:15)
[2018-04-09] MEDS: Sodium Chloride 0.65% 1 SPRAY SPRAY.BTL NASAL ×2 (05:15→17:49)
[2018-04-09] MEDS: Sertraline 50 MG Tablet PO (05:15)
[2018-04-09] MEDS: LINAGLIPTIN 5 MG TABLET PO (05:15)
[2018-04-09] MEDS: Nystatin Powder 15gm Bottle 1 APPLIC TOPICAL ×3 (05:15→21:51)
[2018-04-09] MEDS: amLODIPine 5 MG Tablet PO (05:15)
[2018-04-09 06:36] LABS: Bedside Glucose 148 mg/dL (70-110)
[2018-04-09 07:33] VITALS: O2SAT 91
[2018-04-09] MEDS: Furosemide 20 MG Tablet 60 MG PO ×2 (09:23→17:50)
[2018-04-09] MEDS: Iron Polysaccharide Complex 150 MG CAPSULE PO (09:23)
[2018-04-09] MEDS: Gabapentin 600 MG Tablet PO ×3 (09:24→17:49)
[2018-04-09 11:30] LABS: Bedside Glucose 128 mg/dL (70-110)
--- NOTE | 2018-04-09 13:17 | CASEMGMT ---
Plan of care meeting held. Resident present as well as resident spouse. No discharge date set at this time. Resident to continue with further care and treatment on the Transitional Care Unit at this time. Resident plans to discharge home with spouse at time of discharge. Resident with an insurance update due on 04/10/18, resident and resident family aware that continued stay approval is not guaranteed. Support given. Will continue to follow. Lorna BECKFORD, DISHTANK OPERATOR
[2018-04-09 15:27] VITALS: BP 143/64; PULSE 72; RESP 20; TEMP 36.8; O2SAT 93
--- NOTE | 2018-04-09 16:38 | NURSING ---
Per functional skills tutor, 1800 calorie cardiac low sodium diet
[2018-04-09 17:06] LABS: Bedside Glucose 153 mg/dL (70-110)
[2018-04-09 21:06] LABS: Bedside Glucose 172 mg/dL (70-110)
[2018-04-09] MEDS: Atorvastatin Calcium 10 MG Tablet PO (21:51)
[2018-04-10] MEDS: Losartan Potassium 100 MG Tablet PO (05:19)
[2018-04-10] MEDS: amLODIPine 5 MG Tablet PO (05:19)
[2018-04-10] MEDS: Sertraline 50 MG Tablet PO (05:19)
[2018-04-10] MEDS: Sodium Chloride 0.65% 1 SPRAY SPRAY.BTL NASAL ×2 (05:20→17:43)
[2018-04-10] MEDS: LINAGLIPTIN 5 MG TABLET PO (05:20)
[2018-04-10] MEDS: Nystatin Powder 15gm Bottle 1 APPLIC TOPICAL ×2 (05:24→21:38)
[2018-04-10 05:49] LABS: International Normalized Ratio 1.5
[2018-04-10 06:49] VITALS: O2SAT 93
[2018-04-10] MEDS: Furosemide 20 MG Tablet 60 MG PO ×2 (08:01→17:38)
[2018-04-10] MEDS: Iron Polysaccharide Complex 150 MG CAPSULE PO (08:01)
[2018-04-10] MEDS: Acetaminophen 500 MG Tablet 1000 MG PO ×2 (08:01→21:43)
[2018-04-10] MEDS: Gabapentin 600 MG Tablet PO ×3 (08:01→17:39)
[2018-04-10 08:30] LABS: Bedside Glucose 115 mg/dL (70-110)
--- NOTE | 2018-04-10 09:24 | MDS.RN ---
Pain interview for YONI 04/11/18 completed.
--- NOTE | 2018-04-10 10:37 | CASEMGMT ---
Insurance Clinical information faxed. Pending continued stay approval at this time. Auth# - waiting to receive. Lorna BECKFORD, PC TECHNICIAN
[2018-04-10 11:21] LABS: Bedside Glucose 129 mg/dL (70-110)
[2018-04-10 15:36] VITALS: BP 151/62; PULSE 67; RESP 18; TEMP 36; O2SAT 94
[2018-04-10 16:56] LABS: Bedside Glucose 143 mg/dL (70-110)
[2018-04-10 21:26] LABS: Bedside Glucose 245 mg/dL (70-110)
[2018-04-10] MEDS: Atorvastatin Calcium 10 MG Tablet PO (21:37)
[2018-04-11] MEDS: Sodium Chloride 0.65% 1 SPRAY SPRAY.BTL NASAL ×2 (05:35→17:08)
[2018-04-11] MEDS: amLODIPine 5 MG Tablet PO (05:37)
[2018-04-11] MEDS: LINAGLIPTIN 5 MG TABLET PO (05:37)
[2018-04-11] MEDS: Nystatin Powder 15gm Bottle 1 APPLIC TOPICAL ×3 (05:37→21:21)
[2018-04-11] MEDS: Sertraline 50 MG Tablet PO (05:37)
[2018-04-11] MEDS: Losartan Potassium 100 MG Tablet PO (05:37)
[2018-04-11 07:00] LABS: Bedside Glucose 191 mg/dL (70-110)
[2018-04-11 07:03] VITALS: O2SAT 95
[2018-04-11] MEDS: Acetaminophen 500 MG Tablet 1000 MG PO (08:51)
[2018-04-11] MEDS: Iron Polysaccharide Complex 150 MG CAPSULE PO (08:52)
[2018-04-11] MEDS: Gabapentin 600 MG Tablet PO ×3 (08:52→17:10)
[2018-04-11] MEDS: Furosemide 20 MG Tablet 60 MG PO ×2 (08:53→17:10)
[2018-04-11 12:15] LABS: Bedside Glucose 157 mg/dL (70-110)
--- NOTE | 2018-04-11 14:49 | CASEMGMT ---
Insurance Continued stay approved with update due 04/17/18. If pt continues to progress, continued stay will likely be declined at that time. Pt notified and is aware of potential end of services next week. SW to follow. ID# [id number] ANALY Coffey
[2018-04-11 16:00] VITALS: BP 134/54; PULSE 62; RESP 22; TEMP 36.1; O2SAT 96
[2018-04-11 17:10] LABS: Bedside Glucose 158 mg/dL (70-110)
[2018-04-11 21:01] LABS: Bedside Glucose 231 mg/dL (70-110)
[2018-04-11] MEDS: Atorvastatin Calcium 10 MG Tablet PO (21:21)
[2018-04-12] MEDS: Acetaminophen 500 MG Tablet 1000 MG PO (06:20)
[2018-04-12] MEDS: Sertraline 50 MG Tablet PO (06:21)
[2018-04-12] MEDS: Losartan Potassium 100 MG Tablet PO (06:21)
[2018-04-12] MEDS: Sodium Chloride 0.65% 1 SPRAY SPRAY.BTL NASAL ×2 (06:21→17:14)
[2018-04-12] MEDS: Nystatin Powder 15gm Bottle 1 APPLIC TOPICAL ×3 (06:21→20:59)
[2018-04-12] MEDS: LINAGLIPTIN 5 MG TABLET PO (06:21)
[2018-04-12] MEDS: amLODIPine 5 MG Tablet PO (06:21)
[2018-04-12 06:55] LABS: Bedside Glucose 167 mg/dL (70-110)
[2018-04-12 07:13] LABS: Absolute Lymphocyte Count 1.61 X10^3/ul (0.83-4.51); Absolute Neutrophil Count 3.3 X10^3/uL (2.0-7.7); Basophil# 0.01 X10^3/uL; Basophil% 0.2 % (0-1); Eosinophil# 0.18 X10^3/uL; Eosinophils% 3.3 % (0-5); Hemoglobin 10.3 g/dl (12.0-15.0); Lymphocyte # 1.61 X10^3/ul (4.0); Lymphocyte % 29.2 % (19-41); Mean Corp Hgb Conc 29.4 g/gl (32-36); Mean Corpuscular Hgb 28.8 pg (27.0-32.0); Mean Corpuscular Volume 97.8 fL (81-99); Mean Platelet Vol. 10.8 fl (6.2-12.0); Monocyte# 0.46 X10^3/uL; Monocyte% 8.3 % (0-10); Neutrophil # 3.25 X10^3/uL (2.7-7.7); Neutrophil % 58.8 % (47-70); POSITIVE COUNT NO; POSITIVE DIFFERENTIAL NO; POSITIVE MORPHOLOGY NO; Platelet Count 204 K/mm3 (150-450); RBC Distribution Width CV 14.9 % (11.6-14.6); Red Blood Count 3.58 M/mm3 (4.2-5.4); White Blood Count 5.5 K/mm3 (4.4-11.0)
[2018-04-12 07:38] LABS: Anion Gap 8 (5-15); BUN 54 mg/dL (7-18); BUN/Creat Ratio 24.5 RATIO (10-20); Calcium,Total 9.1 mg/dL (8.5-10.1); Chloride 101 mmol/L (98-107); EST Glomerular Filtration Rate 24 mL/min (>60); Est Glom Filt Rate - Afr Amer 29 mL/min (>60); Estimated Creatinine Clearance 24.79 ml/min; Glucose 178 mg/dL (74-106); Potassium 4.5 mmol/L (3.5-5.1); Sodium Level 142 mmol/L (136-145)
[2018-04-12 07:45] VITALS: O2SAT 92
[2018-04-12] MEDS: Iron Polysaccharide Complex 150 MG CAPSULE PO (08:54)
[2018-04-12] MEDS: Gabapentin 600 MG Tablet PO ×3 (08:54→17:11)
[2018-04-12] MEDS: Furosemide 20 MG Tablet 60 MG PO ×2 (08:55→17:12)
[2018-04-12 11:05] LABS: Bedside Glucose 202 mg/dL (70-110)
[2018-04-12] MEDS: Tuberculin,Purif.prot.deriv. 50 TU/ML Vial 5 ML ID (11:51)
[2018-04-12 15:26] VITALS: BP 126/57; PULSE 65; RESP 20; TEMP 35.8; O2SAT 94
[2018-04-12 17:05] LABS: Bedside Glucose 161 mg/dL (70-110)
[2018-04-12 19:40] VITALS: PULSE 67; O2SAT 96
[2018-04-12] MEDS: Atorvastatin Calcium 10 MG Tablet PO (20:59)
[2018-04-12 21:05] LABS: Bedside Glucose 245 mg/dL (70-110)
[2018-04-13] MEDS: Losartan Potassium 100 MG Tablet PO (05:24)
[2018-04-13] MEDS: LINAGLIPTIN 5 MG TABLET PO (05:25)
[2018-04-13] MEDS: Nystatin Powder 15gm Bottle 1 APPLIC TOPICAL ×3 (05:25→20:07)
[2018-04-13] MEDS: amLODIPine 5 MG Tablet PO (05:25)
[2018-04-13] MEDS: Sodium Chloride 0.65% 1 SPRAY SPRAY.BTL NASAL ×2 (05:25→17:46)
[2018-04-13] MEDS: Sertraline 50 MG Tablet PO (05:25)
[2018-04-13 06:56] LABS: Bedside Glucose 150 mg/dL (70-110)
[2018-04-13 07:22] VITALS: O2SAT 94
[2018-04-13] MEDS: Furosemide 20 MG Tablet 60 MG PO ×2 (08:45→17:45)
[2018-04-13] MEDS: Gabapentin 600 MG Tablet PO ×3 (08:46→17:45)
[2018-04-13] MEDS: Iron Polysaccharide Complex 150 MG CAPSULE PO (08:46)
[2018-04-13 11:15] LABS: Bedside Glucose 192 mg/dL (70-110)
[2018-04-13 15:36] VITALS: BP 146/88; PULSE 63; RESP 20; TEMP 36.6; O2SAT 94
[2018-04-13 16:41] LABS: Bedside Glucose 171 mg/dL (70-110)
[2018-04-13] MEDS: Atorvastatin Calcium 10 MG Tablet PO (20:07)
[2018-04-13 20:11] VITALS: PULSE 63; O2SAT 98
[2018-04-13 20:56] LABS: Bedside Glucose 235 mg/dL (70-110)
[2018-04-14] MEDS: Losartan Potassium 100 MG Tablet PO (05:23)
[2018-04-14] MEDS: amLODIPine 5 MG Tablet PO (05:24)
[2018-04-14] MEDS: Nystatin Powder 15gm Bottle 1 APPLIC TOPICAL ×3 (05:24→21:09)
[2018-04-14] MEDS: Sodium Chloride 0.65% 1 SPRAY SPRAY.BTL NASAL ×2 (05:24→17:37)
[2018-04-14] MEDS: Sertraline 50 MG Tablet PO (05:24)
[2018-04-14] MEDS: LINAGLIPTIN 5 MG TABLET PO (05:24)
[2018-04-14] MEDS: Acetaminophen 500 MG Tablet 1000 MG PO (05:27)
[2018-04-14 06:51] LABS: Bedside Glucose 169 mg/dL (70-110)
[2018-04-14] MEDS: Iron Polysaccharide Complex 150 MG CAPSULE PO (07:39)
[2018-04-14] MEDS: Gabapentin 600 MG Tablet PO ×3 (07:39→17:37)
[2018-04-14] MEDS: Furosemide 20 MG Tablet 60 MG PO ×2 (07:39→17:37)
[2018-04-14 11:24] VITALS: O2SAT 92
[2018-04-14 11:25] LABS: Bedside Glucose 151 mg/dL (70-110)
[2018-04-14 15:23] VITALS: BP 146/34; PULSE 70; RESP 18; TEMP 36.9; O2SAT 92
--- NOTE | 2018-04-14 15:56 | CASEMGMT ---
Social Work Spoke with resident in room. Resident requesting for discharge date to be set for 04/16/18. Spoke with staff/therapy, 04/16/18 is an agreeable date at this time. Resident plans to discharge to home with spouse. Resident declining to have continued therapy but is open to a home exercise program. Resident reporting to need a walker and will possibly need home oxygen. Nursing to complete a home oxygen test with resident tomorrow to determine resident needs for home oxygen. Resident declining for this family welfare social work professor to contact resident significant other in regards to discharge date/plan. Support given. Proposed discharge date: 04/16/18 PLAN: Discharge to home with significant other. Will continue to follow for further discharge planning and to set up durable medical equipment. Lorna BECKFORD, CLOTH PACKER
[2018-04-14 16:56] LABS: Bedside Glucose 138 mg/dL (70-110)
[2018-04-14 20:53] VITALS: PULSE 64; RESP 18; O2SAT 94
[2018-04-14 21:01] LABS: Bedside Glucose 222 mg/dL (70-110)
[2018-04-14] MEDS: Atorvastatin Calcium 10 MG Tablet PO (21:04)
--- NOTE | 2018-04-14 21:21 | PCM.DC ---
- Discharge Diagnoses Current Active Problems: Current Active and Chronic Problems (Last Updated 01/13/18 @ 11:59 by Gracie Baxter) Acute respiratory failure (Acute) Right-sided congestive heart failure (Acute) Asthma (Chronic) Sleep apnea (Chronic) Pulmonary hypertension (Chronic) Chronic kidney disease (Chronic) Chronic kidney disease (CKD) stage G1/A2, glomerular filtration rate (GFR) equal to or greater than 90 mL/min/1.73 square meter and albuminuria creatinine ratio between 30-299 mg/g (Chronic) Atrial fibrillation (Chronic) Morbid obesity (Chronic) Diabetes mellitus (Chronic) Polyneuropathy (Chronic) Depression (Chronic) Vitamin D deficiency (Chronic) Allergic rhinitis (Chronic) You will use the following diet at home:: No restrictions, Regular Your food should be the consistency of: Regular Your liquids should be the consistency of: Regular/Thin Discharge Activity: Return to Normal Activity, May Shower, Use Walker Weight Bearing Status: Weight bearing as tolerated Call your doctor if you observe: Fever of 101 or Higher, Inability to urinate, Inability to have a bowel movement, Shortness of breath, Chest pain, Uncontrolled pain Allergies/Adverse Reactions: Allergies aspirin Allergy (Unknown, Verified 03/31/18 09:32) Unknown ibuprofen Allergy (Verified 03/31/18 09:32) Unknown sulfamethoxazole [From Aprra] Allergy (Verified 03/31/18 09:32) Unknown trimethoprim [From Aprra] Allergy (Verified 03/31/18 09:32) Unknown Medications to take at Discharge Gabapentin [Neurontin] 600 mg PO TIDCM 11/08/14 Losartan Potassium [Cozaar] 100 mg PO DAILY 11/08/14 Sertraline HCl [Zoloft] 50 mg PO DAILY 11/08/14 Simvastatin [Zocor] 20 mg PO QHS 11/08/14 ergocalciferol (vitamin D2) 50,000 unit capsule 50,000 unit PO QMONTH 30 Days #1 01/13/18 linagliptin 5 mg tablet 5 mg PO DAILY 30 Days #30 01/13/18 Amlodipine [Norvasc] 5 mg PO DAILY 03/31/18 Sodium Chloride [Saline Nasal Mist] 1 spray NASAL BID 03/31/18 Albuterol IH (ProAir) [Proair Hfa] 2 inh INHALATION 4X/DAY #1 inhaler 04/03/18 Insulin Glargine [Lantus SoloStar Pen] 55 units SC QHS pen 04/03/18 Acetaminophen [Tylenol] 1,000 mg PO Q8H PRN PRN tablet 04/14/18 Furosemide [Lasix] 60 mg PO BID@1000,1800 #90 tab 04/14/18 Iron Polysaccharide Complex [Ferrex 150] 150 mg PO DAILYCM #30 cap 04/14/18 Mineral Oil/Petrolatum,White [Eucerin] 1 applic TOPICAL DAILY jar 04/14/18 Nystatin Powder [Mycostatin Powder] 1 applic TOPICAL TID bottle 04/14/18 Warfarin [Coumadin] 3.5 mg PO DAILY@1700 #30 tab 04/14/18 Warfarin [Coumadin] 3.5 mg PO DAILY@1700 #30 tab 04/14/18 The following prescriptions were given: Furosemide [Lasix] 60 mg PO BID@1000,1800 #90 tab Iron Polysaccharide Complex [Ferrex 150] 150 mg PO DAILYCM #30 cap Warfarin [Coumadin] 3.5 mg PO DAILY@1700 #30 tab Warfarin [Coumadin] 3.5 mg PO DAILY@1700 #30 tab Orders to be completed after discharge: Prothrombin Time w/INR Time Frame: 1 Day, Location: Laboratory Primary Care Physician: Marshall Baltazar NP-C [Primary Care Provider] - Please follow up with your Primary Care Physician in: 1 week. Test Results: Test results from this visit will be discussed in further detail at your follow-up appointment, if applicable. Proposed Discharge Date: 04/16/18
--- NOTE | 2018-04-14 21:23 | PCM.DC.SUM ---
Discharge Date and Diagnosis - Problem List Patient Problems: Active and Suspected Problems (Last Updated 01/13/18 @ 11:59 by Gracie Baxter) Acute respiratory failure (Acute) Right-sided congestive heart failure (Acute) Date of Admission: 04/04/18 Date of Discharge: 04/16/18 - Primary Discharge Diagnosis Active and Suspected Problems (Last Updated 01/13/18 @ 11:59 by Gracie Baxter) Acute respiratory failure (Acute) Right-sided congestive heart failure (Acute) - Secondary Discharge Diagnosis Chronic Problems (Last Updated 01/13/18 @ 11:59 by Gracie Baxter) Chronic renal insufficiency, stage III (moderate) (Chronic) Leg wound, right (Chronic) Venous insufficiency (chronic) (peripheral) (Chronic) Paroxysmal A-fib (Chronic) Asthma (Chronic) Sleep apnea (Chronic) Pulmonary hypertension (Chronic) Chronic kidney disease (Chronic) Chronic kidney disease (CKD) stage G1/A2, glomerular filtration rate (GFR) equal to or greater than 90 mL/min/1.73 square meter and albuminuria creatinine ratio between 30-299 mg/g (Chronic) Atrial fibrillation (Chronic) Morbid obesity (Chronic) Diabetes mellitus (Chronic) Polyneuropathy (Chronic) Depression (Chronic) Vitamin D deficiency (Chronic) Allergic rhinitis (Chronic) 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) Diabetic neuropathy (Chronic) Obesity (Chronic) Hypertension (Chronic) Hyperlipidemia (Chronic) Diabetes mellitus type 2 in obese (Chronic) Hospital Course and Treatment Imaging Results: 04/04/18 Dinner Diet: Calorie Controlled Food consistency:: Regular Liquid Consistency:: Regular/Thin Dietary Modifications:: Fluid Restricted Diet Diet Comments: cardiac, low sodium, fluid rest 1500cc How many daily calories?: 1800 calorie Labs (Last 48 Hours) 04/13/18 04/13/18 04/13/18 06:40 11:00 16:21 POC Glucose 150 H 192 H 171 H 04/13/18 04/14/18 04/14/18 20:47 06:39 11:22 POC Glucose 235 H 169 H 151 H 04/14/18 04/14/18 16:49 20:52 POC Glucose 138 H 222 H Operations: None Procedures: None Summary of Care Provided: The patient is a 67 year old Female with below past medical history hospitalized for acute respiratory failure secondary to cor pulmonale from untreated sleep apnea, complicated by acute kidney injury, morbid obesity, admitted to TCU with debility, here for rehabilitation, strengthening, prior to discharge home with significant other. Dischage home with significant other. Discharge Diet: No Restrictions Discharge Activity: Return to Normal Activity, May Shower, Use Walker Weight Bearing Status: Weight bearing as tolerated Call your doctor if you observe: Fever of 101 or Higher, Inability to urinate, Inability to have a bowel movement, Shortness of breath, Chest pain, Uncontrolled pain Home Medications: Medications to take at Discharge Gabapentin [Neurontin] 600 mg PO TIDCM 11/08/14 Losartan Potassium [Cozaar] 100 mg PO DAILY 11/08/14 Sertraline HCl [Zoloft] 50 mg PO DAILY 11/08/14 Simvastatin [Zocor] 20 mg PO QHS 11/08/14 ergocalciferol (vitamin D2) 50,000 unit capsule 50,000 unit PO QMONTH 30 Days #1 01/13/18 linagliptin 5 mg tablet 5 mg PO DAILY 30 Days #30 01/13/18 Amlodipine [Norvasc] 5 mg PO DAILY 03/31/18 Sodium Chloride [Saline Nasal Mist] 1 spray NASAL BID 03/31/18 Albuterol IH (ProAir) [Proair Hfa] 2 inh INHALATION 4X/DAY #1 inhaler 04/03/18 Insulin Glargine [Lantus SoloStar Pen] 55 units SC QHS pen 04/03/18 Acetaminophen [Tylenol] 1,000 mg PO Q8H PRN PRN tablet 04/14/18 Furosemide [Lasix] 60 mg PO BID@1000,1800 #90 tab 04/14/18 Iron Polysaccharide Complex [Ferrex 150] 150 mg PO DAILYCM #30 cap 04/14/18 Mineral Oil/Petrolatum,White [Eucerin] 1 applic TOPICAL DAILY jar 04/14/18 Nystatin Powder [Mycostatin Powder] 1 applic TOPICAL TID bottle 04/14/18 Warfarin [Coumadin] 3.5 mg PO DAILY@1700 #30 tab 04/14/18 Warfarin [Coumadin] 3.5 mg PO DAILY@1700 #30 tab 04/14/18 Following Prescrptions Were Given to Patient: Furosemide [Lasix] 60 mg PO BID@1000,1800 #90 tab Iron Polysaccharide Complex [Ferrex 150] 150 mg PO DAILYCM #30 cap Warfarin [Coumadin] 3.5 mg PO DAILY@1700 #30 tab Warfarin [Coumadin] 3.5 mg PO DAILY@1700 #30 tab Other Amb Orders: Prothrombin Time w/INR Time Frame: 1 Day, Location: Laboratory Primary Care Physician: Marshall Baltazar NP-C [Primary Care Provider] - Please follow up with your Primary Care Physician in: 1 week. Disposition: Home Minutes spent on discharge:: 30 Patient Condition:: Stable Medical Necessity - Tobacco Use Smoking Status: Never smoker Tobacco Use: Secondhand Meaningful Use Info Meaningful Use Diagnoses (Choose all that apply): None applicable
[2018-04-15] MEDS: Sodium Chloride 0.65% 1 SPRAY SPRAY.BTL NASAL ×2 (05:03→17:07)
[2018-04-15] MEDS: Sertraline 50 MG Tablet PO (05:04)
[2018-04-15] MEDS: amLODIPine 5 MG Tablet PO (05:04)
[2018-04-15] MEDS: LINAGLIPTIN 5 MG TABLET PO (05:04)
[2018-04-15] MEDS: Losartan Potassium 100 MG Tablet PO (05:04)
[2018-04-15] MEDS: Nystatin Powder 15gm Bottle 1 APPLIC TOPICAL ×3 (05:06→21:11)
[2018-04-15 05:36] LABS: International Normalized Ratio 1.6; Prothrombin Time (Protime)PT. 18.8 SECONDS (11.7-14.9)
[2018-04-15 06:41] LABS: Bedside Glucose 155 mg/dL (70-110)
[2018-04-15 07:49] VITALS: O2SAT 94
[2018-04-15] MEDS: Furosemide 20 MG Tablet 60 MG PO ×2 (08:06→17:07)
[2018-04-15] MEDS: Iron Polysaccharide Complex 150 MG CAPSULE PO (08:06)
[2018-04-15] MEDS: Gabapentin 600 MG Tablet PO ×3 (08:06→17:08)
[2018-04-15 09:46] VITALS: O2SAT 83
[2018-04-15 09:53] VITALS: O2SAT 83; O2SAT 88; O2SAT 95
--- NOTE | 2018-04-15 11:01 | CASEMGMT ---
Social Work Nursing reporting that resident qualified for home oxygen. Spoke with resident in room. Resident voicing understanding and requesting for home oxygen to be set up through [facility]. Resident also requesting for walker to be set up through [facility]. Resident voicing no further needs at this time. Support given. Telephone call to Mariel Deng. This health and social care teacher making referral for home oxygen as well as walker. Portable tank to be delivered to resident room along with walker prior to resident discharge. Order faxed. Proposed discharge date: 04/16/18 PLAN: Discharge to home with spouse. Lorna BECKFORD, MATERIALS ASSOCIATE
[2018-04-15 11:36] LABS: Bedside Glucose 135 mg/dL (70-110)
[2018-04-15 15:05] VITALS: BP 131/54; PULSE 67; RESP 20; TEMP 36.4; O2SAT 95
[2018-04-15 17:01] LABS: Bedside Glucose 143 mg/dL (70-110)
[2018-04-15 21:01] LABS: Bedside Glucose 227 mg/dL (70-110)
[2018-04-15] MEDS: Atorvastatin Calcium 10 MG Tablet PO (21:09)
[2018-04-15] MEDS: Acetaminophen 500 MG Tablet 1000 MG PO (21:14)
[2018-04-16] MEDS: Losartan Potassium 100 MG Tablet PO (06:12)
[2018-04-16] MEDS: amLODIPine 5 MG Tablet PO (06:12)
[2018-04-16] MEDS: LINAGLIPTIN 5 MG TABLET PO (06:12)
[2018-04-16] MEDS: Sodium Chloride 0.65% 1 SPRAY SPRAY.BTL NASAL (06:12)
[2018-04-16] MEDS: Sertraline 50 MG Tablet PO (06:13)
[2018-04-16] MEDS: Nystatin Powder 15gm Bottle 1 APPLIC TOPICAL ×2 (06:14→13:24)
[2018-04-16 06:50] LABS: Bedside Glucose 148 mg/dL (70-110)
[2018-04-16 06:59] VITALS: O2SAT 95
[2018-04-16] MEDS: Gabapentin 600 MG Tablet PO ×2 (08:39→11:42)
[2018-04-16] MEDS: Iron Polysaccharide Complex 150 MG CAPSULE PO (08:39)
[2018-04-16] MEDS: Furosemide 20 MG Tablet 60 MG PO (08:39)
[2018-04-16 11:16] LABS: Bedside Glucose 166 mg/dL (70-110)
--- NOTE | 2018-04-16 11:58 | MDS.RN ---
Information for the mds was obtained from review of the clinical record, interview of resident, staff, and direct observation of resident's care.
[2018-04-16 16:00] VITALS: BP 155/74; PULSE 68; RESP 22; TEMP 36.6; O2SAT 92
--- NOTE | 2018-04-18 09:28 | CASEMGMT ---
Insurance Notified insurance of resident discharge on 04/16/18 to home with spouse. Auth#[id number] Lorna BECKFORD, POTTER OR CERAMIC ARTIST
== END 2018-04-16 16:36 | disposition home or self-care (01) | DRG 948 ==
PROVIDERS: Admitting Provider Family Medicine Geriatric Medicine; Family Provider Nurse Practitioner Family; PCP Nurse Practitioner Family; Visit Provider Family Medicine Geriatric Medicine
DX: R53.81 Other malaise (principal); Z68.43 Body mass index [BMI] 50.0-59.9, adult; I13.0 Hypertensive heart and chronic kidney disease with heart failure and stage 1 through stage 4 chronic kidney disease, or unspecified chronic kidney disease; I27.81 Cor pulmonale (chronic); E78.5 Hyperlipidemia, unspecified; G47.33 Obstructive sleep apnea (adult) (pediatric); E66.01 Morbid (severe) obesity due to excess calories; I48.0 Paroxysmal atrial fibrillation; F32.9 Major depressive disorder, single episode, unspecified; E11.22 Type 2 diabetes mellitus with diabetic chronic kidney disease; I50.811 Acute right heart failure; J45.909 Unspecified asthma, uncomplicated; E11.40 Type 2 diabetes mellitus with diabetic neuropathy, unspecified; I27.20 Pulmonary hypertension, unspecified; E11.42 Type 2 diabetes mellitus with diabetic polyneuropathy; E55.9 Vitamin D deficiency, unspecified; N18.3 Chronic kidney disease, stage 3 (moderate); Z91.19 Patient's noncompliance with other medical treatment and regimen; Z71.3 Dietary counseling and surveillance; B35.4 Tinea corporis; E87.6 Hypokalemia
CPT/HCPCS: 36415; 80048; 82962; 85025; 85610; 97110; 97116; 97162; 97166; 97530; 97535; 97802

== ENCOUNTER → 2018-05-21 15:13 | Outpatient (CLI) | payer MEDICARE, SELFPAY ==
[2018-05-21 16:21] LABS: Albumin, Serum 3.1 g/dL (3.2-5.0); BUN 26 mg/dL (7-18); BUN/Creat Ratio 12.6 RATIO (10-20); Calcium,Total 8.9 mg/dL (8.5-10.1); Chloride 105 mmol/L (98-107); Creatinine, Serum 2.06 mg/dL (0.55-1.02); EST Glomerular Filtration Rate 26 mL/min (>60); Est Glom Filt Rate - Afr Amer 31 mL/min (>60); Glucose 152 mg/dL (74-106); Phosphorus 2.9 mg/dL (2.5-4.9); Potassium 4.5 mmol/L (3.5-5.1); Sodium Level 141 mmol/L (136-145)
== END ==
PROVIDERS: Visit Provider Internal Medicine Nephrology
DX: N17.9 Acute kidney failure, unspecified (principal); E11.22 Type 2 diabetes mellitus with diabetic chronic kidney disease; N18.3 Chronic kidney disease, stage 3 (moderate); E55.9 Vitamin D deficiency, unspecified
CPT/HCPCS: 36415; 80069

== ENCOUNTER → 2018-05-22 12:09 | Outpatient (CLI) | payer MEDICARE, SELFPAY ==
[2018-05-22 12:38] LABS: Protein, Urine (Random) 197.6 mg/dL (<11.9); Protein:Creat Ratio 1212 mg/g CRE (0-200)
== END ==
PROVIDERS: Visit Provider Internal Medicine Nephrology
DX: E11.22 Type 2 diabetes mellitus with diabetic chronic kidney disease (principal); N18.3 Chronic kidney disease, stage 3 (moderate); E55.9 Vitamin D deficiency, unspecified
CPT/HCPCS: 82570; 84156

== ENCOUNTER → 2018-06-17 21:20 | Outpatient (CLI) | payer MEDICARE, SELFPAY | PROVIDERS: Family Provider Nurse Practitioner Family; PCP Nurse Practitioner Family; Visit Provider Nurse Practitioner Acute Care | DX: G47.33 Obstructive sleep apnea (adult) (pediatric) (principal) | CPT/HCPCS: 95811 ==

== ENCOUNTER → 2018-11-24 10:32 | Outpatient (CLI) | payer MEDICARE, SELFPAY ==
[2018-11-24 12:05] LABS: Albumin, Serum 3.1 g/dL (3.2-5.0); BUN 33 mg/dL (7-18); BUN/Creat Ratio 15.9 RATIO (10-20); Calcium,Total 8.8 mg/dL (8.5-10.1); Chloride 109 mmol/L (98-107); Creatinine, Serum 2.07 mg/dL (0.55-1.02); EST Glomerular Filtration Rate 25 mL/min (>60); Est Glom Filt Rate - Afr Amer 31 mL/min (>60); Glucose 158 mg/dL (74-106); Phosphorus 3.9 mg/dL (2.5-4.9); Potassium 4.7 mmol/L (3.5-5.1); Sodium Level 143 mmol/L (136-145)
[2018-11-24 12:12] LABS: PTHIN 104.2 pg/mL (18.4-80.1)
== END ==
PROVIDERS: Family Provider Nurse Practitioner Family; PCP Nurse Practitioner Family; Referring Provider Internal Medicine Nephrology; Visit Provider Internal Medicine Nephrology
DX: E11.22 Type 2 diabetes mellitus with diabetic chronic kidney disease (principal); N18.3 Chronic kidney disease, stage 3 (moderate); E55.9 Vitamin D deficiency, unspecified
CPT/HCPCS: 36415; 80069; 82306; 82570; 83970; 84156

== ENCOUNTER → 2018-11-26 11:26 | Outpatient (CLI) | payer MEDICARE, SELFPAY ==
[2018-11-26 13:48] LABS: Protein, Urine (Random) 250.9 mg/dL (<11.9); Protein:Creat Ratio 1568 mg/g CRE (0-200)
== END ==
PROVIDERS: Family Provider Nurse Practitioner Family; PCP Nurse Practitioner Family; Referring Provider Internal Medicine Nephrology; Visit Provider Internal Medicine Nephrology
DX: E11.22 Type 2 diabetes mellitus with diabetic chronic kidney disease (principal); N18.3 Chronic kidney disease, stage 3 (moderate)
CPT/HCPCS: 82570; 84156

== ENCOUNTER → 2018-12-15 10:00 | Outpatient (CLI) | payer MEDICARE, SELFPAY ==
[2018-12-15 10:43] LABS: Absolute Neutrophil Count 3.3 X10^3/uL (2.0-7.7); Basophil# 0.02 X10^3/uL; Basophil% 0.3 % (0-1); Eosinophil# 0.18 X10^3/uL; Eosinophils% 2.6 % (0-5); Hematocrit 41.7 % (37-47); Hemoglobin 13.1 g/dl (12.0-15.0); Lymphocyte % 41.1 % (19-41); Mean Corp Hgb Conc 31.4 g/gl (32-36); Mean Corpuscular Hgb 30.4 pg (27.0-32.0); Mean Corpuscular Volume 96.8 fL (81-99); Monocyte# 0.49 X10^3/uL; Monocyte% 7.2 % (0-10); Neutrophil # 3.31 X10^3/uL (2.7-7.7); Neutrophil % 48.7 % (47-70); Platelet Count 204 K/mm3 (150-450); RBC Distribution Width CV 14.5 % (11.6-14.6); RBC Distribution Width SD 51.7 fl (35.1-43.9); Red Blood Count 4.31 M/mm3 (4.2-5.4); White Blood Count 6.8 K/mm3 (4.4-11.0)
[2018-12-15 10:44] LABS: POSITIVE COUNT NO; POSITIVE DIFFERENTIAL NO; POSITIVE MORPHOLOGY NO
[2018-12-15 11:34] LABS: Vitamin D,25 Hydroxy 20.8 ng/mL (29.95-100.01)
[2018-12-15 11:36] LABS: ALB/GLOB Ratio 0.7 RATIO (0.9-2.4); AST(SGOT) 15 U/L (15-37); Alanine Aminotransfer ALT/SGPT 15 U/L (13-56); Albumin, Serum 3.5 g/dL (3.2-5.0); Alkaline Phosphatase 78 U/L (45-117); BUN 37 mg/dL (7-18); BUN/Creat Ratio 18.8 RATIO (10-20); Calcium,Total 9.1 mg/dL (8.5-10.1); Creatinine, Serum 1.97 mg/dL (0.55-1.02); EST Glomerular Filtration Rate 27 mL/min (>60); Est Glom Filt Rate - Afr Amer 33 mL/min (>60); Globulin 5.1 g/dL (2.2-4.2); Glucose 136 mg/dL (74-106); Protein, Total 8.6 g/dL (6.4-8.2)
[2018-12-15 11:37] LABS: Anion Gap 3 (5-15); Chloride 107 mmol/L (98-107); Cholesterol 138 mg/dL (200); High Density Lipoprotein 45 mg/dL; Sodium Level 138 mmol/L (136-145); Triglycerides 118 mg/dL; Very Low Density Lipoprotein 24 mg/dL (5-40)
== END ==
PROVIDERS: Family Provider Nurse Practitioner Family; PCP Nurse Practitioner Family; Visit Provider Nurse Practitioner Family
DX: I10 Essential (primary) hypertension (principal); E78.5 Hyperlipidemia, unspecified; E55.9 Vitamin D deficiency, unspecified
CPT/HCPCS: 36415; 80053; 80061; 82306; 85025

== ENCOUNTER → 2019-03-02 13:29 | Outpatient (CLI) | payer MEDICARE, SELFPAY ==
[2019-03-02 17:46] LABS: Hematocrit 41.8 % (37-47); Hemoglobin 12.9 g/dl (12.0-15.0); Mean Corp Hgb Conc 30.9 g/gl (32-36); Mean Corpuscular Hgb 29.7 pg (27.0-32.0); Mean Corpuscular Volume 96.3 fL (81-99); Mean Platelet Vol. 11.1 fl (6.2-12.0); Platelet Count 206 K/mm3 (150-450); RBC Distribution Width SD 47.5 fl (35.1-43.9); Red Blood Count 4.34 M/mm3 (4.2-5.4); Scan Indicated on CBC? Y/N NO; White Blood Count 7.7 K/mm3 (4.4-11.0)
[2019-03-02 17:56] LABS: BUN 31 mg/dL (7-18); BUN/Creat Ratio 16.7 RATIO (10-20); Calcium,Total 8.6 mg/dL (8.5-10.1); Chloride 109 mmol/L (98-107); Creatinine, Serum 1.86 mg/dL (0.55-1.02); EST Glomerular Filtration Rate 29 mL/min (>60); Est Glom Filt Rate - Afr Amer 35 mL/min (>60); Glucose 241 mg/dL (74-106); Phosphorus 2.6 mg/dL (2.5-4.9); Potassium 4.5 mmol/L (3.5-5.1); Sodium Level 138 mmol/L (136-145)
[2019-03-02 18:08] LABS: PTHIN 162.8 pg/mL (18.4-80.1)
== END ==
PROVIDERS: Family Provider Nurse Practitioner Family; PCP Nurse Practitioner Family; Visit Provider Internal Medicine Nephrology
DX: N18.4 Chronic kidney disease, stage 4 (severe) (principal)
CPT/HCPCS: 36415; 80069; 83970; 85027

== ENCOUNTER → 2019-03-24 11:31 | Outpatient (CLI) | payer MEDICARE, SELFPAY ==
[2019-03-24 12:59] LABS: 24HR. UA Prot. Total Volume 1050 mL; 24HR. Urine Creatinine 0.89 g/24 HR (0.70-1.90); Urine Protein (24 Hour) 129.8 mg/dL (<11.9)
== END ==
PROVIDERS: Family Provider Nurse Practitioner Family; PCP Nurse Practitioner Family; Visit Provider Internal Medicine Nephrology
DX: N18.4 Chronic kidney disease, stage 4 (severe) (principal)
CPT/HCPCS: 81050; 82570; 84156

== ENCOUNTER → 2019-09-11 09:49 | Outpatient (CLI) | payer MEDICARE, MEDICAID, SELFPAY ==
[2019-09-11 10:34] LABS: Hematocrit 41.6 % (37-47); Hemoglobin 12.7 g/dL (12.0-15.0); Mean Corp Hgb Conc 30.5 g/dL (32-36); Mean Corpuscular Hgb 30.1 pg (27.0-32.0); Mean Corpuscular Volume 98.6 fL (81-99); Mean Platelet Vol. 10.4 fl (6.2-12.0); Platelet Count 185 K/mm3 (150-450); RBC Distribution Width CV 13.2 % (11.6-14.6); RBC Distribution Width SD 47.2 fl (35.1-43.9); Red Blood Count 4.22 M/mm3 (4.2-5.4); White Blood Count 6.6 K/mm3 (4.4-11.0)
[2019-09-11 10:50] LABS: Hemoglobin A1c 7.8 % (4.2-6.3)
[2019-09-11 10:53] LABS: ALB/GLOB Ratio 0.7 RATIO (0.9-2.4); AST(SGOT) 13 U/L (15-37); Alanine Aminotransfer ALT/SGPT 17 U/L (13-56); Albumin, Serum 3.2 g/dL (3.2-5.0); Alkaline Phosphatase 70 U/L (45-117); Anion Gap 3 (5-15); BUN 32 mg/dL (7-18); BUN/Creat Ratio 15.5 RATIO (10-20); Calcium,Total 9.1 mg/dL (8.5-10.1); Chloride 110 mmol/L (98-107); Cholesterol 128 mg/dL (200); Creatinine, Serum 2.06 mg/dL (0.55-1.02); EST Glomerular Filtration Rate 26 mL/min (>60); Est Glom Filt Rate - Afr Amer 31 mL/min (>60); Globulin 4.8 g/dL (2.2-4.2); Glucose 120 mg/dL (74-106); High Density Lipoprotein 40 mg/dL; Phosphorus 3.2 mg/dL (2.5-4.9); Sodium Level 142 mmol/L (136-145); Triglycerides 132 mg/dL; Very Low Density Lipoprotein 26 mg/dL (5-40)
[2019-09-11 10:56] LABS: PTHIN 152.6 pg/mL (18.4-80.1); Vitamin D,25 Hydroxy 27.4 ng/mL (29.95-100.01)
== END ==
PROVIDERS: Family Provider Nurse Practitioner Family; PCP Nurse Practitioner Family; Referring Provider Internal Medicine Nephrology; Visit Provider Internal Medicine Nephrology
DX: E11.22 Type 2 diabetes mellitus with diabetic chronic kidney disease (principal); I12.9 Hypertensive chronic kidney disease with stage 1 through stage 4 chronic kidney disease, or unspecified chronic kidney disease; N18.4 Chronic kidney disease, stage 4 (severe); E78.5 Hyperlipidemia, unspecified; E55.9 Vitamin D deficiency, unspecified; E21.3 Hyperparathyroidism, unspecified
CPT/HCPCS: 36415; 80053; 80061; 82306; 83036; 83970; 84100; 85027

== ENCOUNTER → 2020-04-11 17:04 | Outpatient (CLI) | payer MEDICARE, MEDICAID, SELFPAY | PROVIDERS: PCP Nurse Practitioner Family; Referring Provider Obstetrics & Gynecology; Visit Provider Obstetrics & Gynecology | DX: Z11.59 Encounter for screening for other viral diseases (principal) | CPT/HCPCS: 87635; 94799; U0003 ==

== ENCOUNTER → 2020-06-10 09:20 | Outpatient (CLI) | payer MEDICARE, MEDICAID, SELFPAY ==
[2020-06-10 09:51] LABS: Hematocrit 42.8 % (37-47); Hemoglobin 12.8 g/dL (12.0-15.0); Mean Corp Hgb Conc 29.9 g/dL (32-36); Mean Corpuscular Hgb 29.4 pg (27.0-32.0); Mean Corpuscular Volume 98.4 fL (81-99); Mean Platelet Vol. 10.9 fl (6.2-12.0); Platelet Count 171 K/mm3 (150-450); RBC Distribution Width CV 14.2 % (11.6-14.6); RBC Distribution Width SD 51.4 fl (35.1-43.9); Red Blood Count 4.35 M/mm3 (4.2-5.4); White Blood Count 6.3 K/mm3 (4.4-11.0)
[2020-06-10 10:35] LABS: PTHIN 143.7 pg/mL (18.4-80.1)
[2020-06-10 10:40] LABS: Vitamin D,25 Hydroxy 44.2 ng/mL
[2020-06-10 10:52] LABS: ALB/GLOB Ratio 0.6 RATIO (0.9-2.4); AST(SGOT) 14 U/L (15-37); Alanine Aminotransfer ALT/SGPT 15 U/L (13-56); Albumin, Serum 2.9 g/dL (3.2-5.0); Alkaline Phosphatase 68 U/L (45-117); Anion Gap 4 (5-15); BUN 33 mg/dL (7-18); BUN/Creat Ratio 15.9 RATIO (10-20); Calcium,Total 8.6 mg/dL (8.5-10.1); Chloride 112 mmol/L (98-107); Cholesterol 132 mg/dL (200); Creatinine, Serum 2.08 mg/dL (0.55-1.02); EST Glomerular Filtration Rate 25 mL/min (>60); Est Glom Filt Rate - Afr Amer 31 mL/min (>60); Globulin 5.2 g/dL (2.2-4.2); Glucose 118 mg/dL (74-106); High Density Lipoprotein 40 mg/dL; Phosphorus 3.5 mg/dL (2.5-4.9); Potassium 4.7 mmol/L (3.5-5.1); Protein, Total 8.1 g/dL (6.4-8.2); Sodium Level 142 mmol/L (136-145); Triglycerides 178 mg/dL; Very Low Density Lipoprotein 36 mg/dL (5-40)
== END ==
PROVIDERS: PCP Nurse Practitioner Family; Referring Provider Internal Medicine Nephrology; Visit Provider Internal Medicine Nephrology
DX: I12.9 Hypertensive chronic kidney disease with stage 1 through stage 4 chronic kidney disease, or unspecified chronic kidney disease (principal); E11.22 Type 2 diabetes mellitus with diabetic chronic kidney disease; N18.4 Chronic kidney disease, stage 4 (severe); D64.9 Anemia, unspecified; N25.81 Secondary hyperparathyroidism of renal origin; E78.5 Hyperlipidemia, unspecified; E55.9 Vitamin D deficiency, unspecified
CPT/HCPCS: 36415; 80053; 80061; 82306; 83036; 83970; 84100; 85027

== ENCOUNTER 2020-07-08 17:22 | Inpatient (IN) | payer MEDICARE, MEDICAID, SELFPAY ==
[2020-07-08] VITALS (10 sets, daily range): BP systolic 117–165; BP diastolic 59–127; PULSE 75–96; RESP 17–27; TEMP 36.9–37.9; O2SAT 80–96; BMI 45.3; BMI 44.8
--- NOTE | 2020-07-08 17:42 | EKG12_ITS ---
Test Reason : GENERAL Blood Pressure : / mmHG Vent. Rate : 078 BPM Atrial Rate : 078 BPM P-R Int : 214 ms QRS Dur : 100 ms QT Int : 354 ms P-R-T Axes : 053 038 077 degrees QTc Int : 403 ms Sinus rhythm with 1st degree A-V block Otherwise normal ECG Confirmed by SALENA OSUNA, WILLIAM ([id number]), electronic news gathering editor JENNIFER TOMLIN ([id number]) on 07/12/2020 8:47:16 AM Referred By: ANNABEL Confirmed By:WILLIAM MARTINO MD
--- NOTE | 2020-07-08 17:43 | ED.VISSUMM ---
- ER Visit Summary Date of Service: 07/08/20 Chief Complaint: Fall History of Present Illness: The patient is a 69 F who presents after a fall that occurred today. Patient states that when she went to stand her knees gave out and she fell. Patient does not believe she had any loss of consciousness. Patient states she was having difficulty getting up after she fell. Patient states her legs just feel weak. Patient states she was having some pain over her left abdomen area. Patient describes it as sharp. Patient denies any chest pain or shortness of breath. Patient does admit to some nausea and vomiting. Patient denies any sick contacts. Patient denies any contacts of COVID-19. Patient denies any loss of taste or smell. Physical Examination: Vital signs are stable. Patient is afebrile. Patient is in no acute distress. Oral mucosa is pink and moist. Neck is supple. Trachea is midline. There is no JVD. Heart was regular rate and rhythm. Lungs are clear and equal bilaterally. Abdomen is soft. Bowel sounds are normal. There is no tenderness. Cranial nerves II through XII are intact. Strength is 5/5 bilateral in the upper and lower extremities. There are no sensory deficits. Test Results: EKG shows normal sinus rhythm with a first-degree AV block with a rate of 78. There are no acute ST or T wave changes. This was interpreted by myself. Portable chest x-ray was obtained. There is atelectasis in the mid lungs bilaterally. There is no acute infiltrate. There is no cardiomegaly noted. Bony thorax is normal. This was interpreted by myself. Radiologist also interpreted the x-ray and agrees. CBC was normal. Comprehensive metabolic profile showed a mildly elevated creatinine of 2.54. This was increased from previous result of 2.0. Urinalysis shows 10-25 white blood cells but negative leukocyte esterase, negative nitrite, and 0 bacteria. Troponin was normal. Lactate was slightly elevated at 2.1. Emergency Department Course and Treatment: Orthostatic vital signs were obtained and were positive. Patient was given IV fluids. Patient was also given a dose of Rocephin. Case was discussed with the hospitalist. He recommended obtaining a COVID-19 test. He also recommended obtaining PT with INR. He will admit the patient to his service. Patient understood and was agreeable with the plan. All questions were answered. Disposition: Admit to hospital Impression: 1. Near syncope 2. Orthostatic hypotension 3. Lactic acidosis This note was generated with Cognuse dictation software. It may contain incorrect words, spelling, and punctuation that were not noted in review of the chart prior to signing ED Disposition - Plan for ED Patient: Disposition: Acute Care Hospital [facility] Diagnosis: Near syncope, Acute kidney injury, Orthostatic hypotension, Lactic acidosis Referrals: Marshall Baltazar GLOBAL SUPPLY CHAIN VICE PRESIDENT, GLOBAL SUPPLY CHAIN VICE PRESIDENT-C [Primary Care Provider] -
--- NOTE | 2020-07-08 17:48 | RAD_ITS ---
STUDY: X-RAY CHEST REASON FOR EXAM: Female, 69 years old. WEAKNESS TECHNIQUE: Single frontal view of the chest. COMPARISON: 03/31/2018 FINDINGS: Bilateral midlung atelectasis. There is no demonstrated pleural abnormality. Normal size heart. Normal mediastinum and ray. Normal visualized pulmonary arteries. Normal visualized aortic arch and descending thoracic aorta. Normal visualized thoracic spine. Normal visualized ribs, clavicles, and shoulders. There is no demonstrated abnormality of the visualized soft tissue structures of the upper abdomen. RAD/Chest 1 View (Portable) IMPRESSION: Bilateral midlung atelectasis. Electronically Signed: Zeb Rodriguez MD at 18:20 EST Tel , Service support ,
[2020-07-08 18:00] LABS: Absolute Lymphocyte Count 1.22 X10^3/uL (0.83-4.51); Absolute Neutrophil Count 6.4 X10^3/uL (2.0-7.7); Basophil# 0.02 X10^3/uL; Basophil% 0.2 % (0-1); Hematocrit 43.1 % (37-47); Hemoglobin 13.1 g/dL (12.0-15.0); Lymphocyte # 1.22 X10^3/ul (4.0); Lymphocyte % 14.8 % (19-41); Mean Corp Hgb Conc 30.4 g/dL (32-36); Mean Corpuscular Hgb 29.9 pg (27.0-32.0); Mean Corpuscular Volume 98.4 fL (81-99); Mean Platelet Vol. 11.2 fl (6.2-12.0); Monocyte# 0.55 X10^3/uL; Monocyte% 6.7 % (0-10); NRBC Flagged by Analyzer 0 % (0-5); Neutrophil # 6.42 X10^3/uL (2.7-7.7); Neutrophil % 77.9 % (47-70); Platelet Count 138 K/mm3 (150-450); RBC Distribution Width CV 14.4 % (11.6-14.6); RBC Distribution Width SD 52.1 fl (35.1-43.9); Red Blood Count 4.38 M/mm3 (4.2-5.4); White Blood Count 8.2 K/mm3 (4.4-11.0)
[2020-07-08 18:01] LABS: POSITIVE COUNT NO; POSITIVE DIFFERENTIAL NO; POSITIVE MORPHOLOGY NO
[2020-07-08 18:16] LABS: ALB/GLOB Ratio 0.6 RATIO (0.9-2.4); AST(SGOT) 13 U/L (15-37); Alanine Aminotransfer ALT/SGPT 15 U/L (13-56); Albumin, Serum 3.3 g/dL (3.2-5.0); Alkaline Phosphatase 72 U/L (45-117); Anion Gap 5 (5-15); BUN 27 mg/dL (7-18); BUN/Creat Ratio 10.6 RATIO (10-20); Calcium,Total 8.5 mg/dL (8.5-10.1); Chloride 105 mmol/L (98-107); Creatinine, Serum 2.54 mg/dL (0.55-1.02); EST Glomerular Filtration Rate 20 mL/min (>60); Est Glom Filt Rate - Afr Amer 24 mL/min (>60); Estimated Creatinine Clearance 21.68 ml/min; Globulin 5.8 g/dL (2.2-4.2); Glucose 182 mg/dL (74-106); Protein, Total 9.1 g/dL (6.4-8.2); Sodium Level 136 mmol/L (136-145)
[2020-07-08 19:06] LABS: Lactic Acid 2.1 mmol/L (0.4-1.9)
[2020-07-08 19:30] LABS: Bacteria 0 SEEN /hpf (None Seen); Mucous, Urine 0 SEEN /hpf (<or=2+)
[2020-07-08 19:31] LABS: Color, Urine Yellow (Yellow); Glucose, Dipstick 100 mg/dl (Normal); Ketone-Dipstick Negative (Negative); Leukocyte Esterase-Dipstick Negative /ul (Negative); Nitrite-Dipstick Negative (Negative); Occult Blood-Urine 50 /ul (Negative); Protein-Dipstick 500 mg/dl (Negative); Urine Bilirubin Dipstick Negative (Negative); Urine Clarity Sl. Cloudy (Clear); Urine Urobilinogen Normal (Normal)
[2020-07-08] MEDS: 0.9% Normal Saline 1,000 ML 1000 ML IV (19:57)
[2020-07-08 20:29] LABS: Squamous Epithelial Cells - UA 0-5 SEEN /hpf (5-10)
[2020-07-08 20:30] LABS: Hyaline Cast 0-5 SEEN /lpf (0-5)
[2020-07-08 20:32] LABS: Fine Granular Cast- Urine 0-5 SEEN /lpf (0-5)
[2020-07-08 20:35] LABS: Red Blood Cells-Urine 5-10 SEEN /hpf (0-5)
[2020-07-08 20:37] LABS: White Blood Cells 10-25 SEEN /hpf (0-5)
[2020-07-08 21:16] LABS: International Normalized Ratio 2.1; Prothrombin Time (Protime)PT. 22.7 SECONDS (11.7-14.9)
[2020-07-08] MEDS: Acetaminophen 500 MG Tablet 1000 MG PO (21:17)
[2020-07-08] MEDS: Ceftriaxone 1 GM/50 ML BAG IV (21:27)
[2020-07-08 21:52] LABS: Reflex Lactate? Y
--- NOTE | 2020-07-08 22:10 | HP.PCM_ITS ---
Problem List (1) Near syncope Status: Acute (2) Acute kidney injury Status: Acute (3) Orthostatic hypotension Status: Acute (4) Lactic acidosis Status: Acute (5) Secondary pulmonary arterial hypertension Status: Chronic (6) Chronic renal insufficiency, stage III (moderate) Status: Chronic (7) Venous insufficiency (chronic) (peripheral) Status: Chronic (8) Paroxysmal A-fib Status: Chronic (9) DIEGO (obstructive sleep apnea) Status: Chronic (10) Right-sided congestive heart failure Status: Chronic (11) Asthma Status: Chronic Qualifiers: Asthma severity: unspecified severity Asthma persistence: unspecified Asthma complication type: unspecified Qualified Code(s): J45.909 - Unspecified asthma, uncomplicated (12) Chronic kidney disease (CKD) stage G1/A2, glomerular filtration rate (GFR) equal to or greater than 90 mL/min/1.73 square meter and albuminuria creatinine ratio between 30-299 mg/g Status: Chronic (13) Morbid obesity Status: Chronic (14) Depression Status: Chronic (15) Vitamin D deficiency Status: Chronic (16) Allergic rhinitis Status: Chronic (17) Diabetic neuropathy associated with type 2 diabetes mellitus Status: Chronic (18) Hypertension Status: Chronic (19) Hyperlipidemia Status: Chronic History of Present Illness Date of Admission: 07/08/20 Chief Complaint: Fall The patient is a 69 year old F with a significant history of depression; diabetes; morbid obesity and proximal A. fib who presents to the emergency department because she fell onto her bathroom floor and could not get up. Reportedly her knees gave up. She also reported that she felt imbalance on her feet. She felt lightheaded after her fall. She reports headache. She denies cough. She reports shortness of breath. She had chills a day before presentation. She reports left sided abdominal pain in in between abdominal folds in a linear pattern. Reportedly paramedics found that her temperature was 103.7 and she was hypoxic. Past Medical History Past Medical History (Chronic Problems): Chronic Problems (Last Reviewed 07/08/20 @ 23:[address] Akash Jose MD) Secondary pulmonary arterial hypertension (Chronic) Chronic renal insufficiency, stage III (moderate) (Chronic) Venous insufficiency (chronic) (peripheral) (Chronic) Paroxysmal A-fib (Chronic) DIEGO (obstructive sleep apnea) (Chronic) Right-sided congestive heart failure (Chronic) Asthma (Chronic) Chronic kidney disease (CKD) stage G1/A2, glomerular filtration rate (GFR) equal to or greater than 90 mL/min/1.73 square meter and albuminuria creatinine ratio between 30-299 mg/g (Chronic) Morbid obesity (Chronic) Depression (Chronic) Vitamin D deficiency (Chronic) Allergic rhinitis (Chronic) 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 Akash Jose MD) Secondary pulmonary arterial hypertension (Chronic) I27.21 Chronic renal insufficiency, stage III (moderate) (Chronic) N18.3 Venous insufficiency (chronic) (peripheral) (Chronic) I87.2 Paroxysmal A-fib (Chronic) I48.0 DIEGO (obstructive sleep apnea) (Chronic) G47.33 Right-sided congestive heart failure (Chronic) I50.810 Asthma (Chronic) J45.909 Chronic kidney disease (CKD) stage G1/A2, glomerular filtration rate (GFR) equal to or greater than 90 mL/min/1.73 square meter and albuminuria creatinine ratio between 30-299 mg/g (Chronic) N18.1 Morbid obesity (Chronic) E66.01 Depression (Chronic) F32.9 Vitamin D deficiency (Chronic) E55.9 Allergic rhinitis (Chronic) J30.9 Right leg pain (Inactive) M79.604 Cellulitis of right lower extremity (Inactive) L03.115 Acute respiratory failure with hypoxia (Inactive) J96.01 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) E11.40 Hypertension (Chronic) I10 Hyperlipidemia (Chronic) E78.5 Arthritis M19.90 Diabetes E11.9 Hay fever J30.1 Knee pain M25.569 Hypertension I10 Allergies aspirin Allergy (Unknown, Verified 05/22/18 14:10) Unknown ibuprofen Allergy (Verified 05/22/18 14:10) Unknown sulfamethoxazole [From Septra] Allergy (Verified 05/22/18 14:10) Unknown trimethoprim [From Septra] Allergy (Verified 05/22/18 14:10) Unknown Home Medications: Ambulatory Orders Medication Instructions Recorded Gabapentin [Neurontin] 600 mg PO TIDCM 11/08/14 Losartan Potassium [Cozaar] 100 mg PO DAILY 11/08/14 Sertraline HCl [Zoloft] 50 mg PO DAILY 11/08/14 Simvastatin [Zocor] 20 mg PO QHS 11/08/14 ergocalciferol (vitamin D2) 1,250 50,000 unit PO QMONTH 30 Days #1 01/13/18 mcg (50,000 unit) capsule linagliptin 5 mg tablet 5 mg PO DAILY 30 Days #30 01/13/18 Amlodipine [Norvasc] 5 mg PO DAILY 03/31/18 Sodium Chloride [Saline Nasal Mist] 1 spray NASAL BID 03/31/18 Albuterol IH (ProAir) [Proair Hfa] 2 inh INHALATION 4X/DAY #1 inhaler 04/03/18 Acetaminophen [Tylenol] 1,000 mg PO Q8H PRN PRN tab 04/14/18 Iron Polysaccharide Complex 150 mg PO DAILYCM #30 cap 04/14/18 [Ferrex 150] Mineral Oil/Petrolatum,White 1 applic TOPICAL DAILY jar 04/14/18 [Eucerin] Nystatin Powder [Mycostatin Powder] 1 applic TOPICAL TID bottle 04/14/18 insulin glargine 100 unit/mL (3 74 unit SC HS ml 05/22/18 mL) subcutaneous pen warfarin 2.5 mg tablet 2.5 mg PO DAILY 05/22/18 Surgical History: Surgical History (Last Reviewed 07/08/20 @ 23:[address] Akash Jose MD) History of knee replacement procedure of right knee Z96.651 Hx of section Z98.891 Surgical History: total knee arthroplasty - Right; lumbar disc surgery, - - C- section. 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 Akash Jose MD) Mother CAD (coronary artery disease) Hypertension Father CAD (coronary artery disease) Hypertension Other Diabetes Heart disease History Items: Heart Disease Paternal Family History: Family History (Last Reviewed 07/08/20 @ 23:[address] Akash Jose MD) Mother CAD (coronary artery disease) Hypertension Father CAD (coronary artery disease) Hypertension Other Diabetes Heart disease History Items: Heart Disease Sibling Family History: Family History (Last Reviewed 07/08/20 @ 23:[address] Akash Jose MD) Mother CAD (coronary artery disease) Hypertension Father CAD (coronary artery disease) Hypertension Other Diabetes Heart disease History Items: Heart Disease Review of Systems Constitutional: Reports: Chills, Fever, Weakness, Fatigue. Denies: Weight Change HEENT: Denies: Head Aches, Sinus Congestion, Sinus Drainage Cardiovascular: Reports: Light Headedness. Denies: Chest Pain, Palpitations Respiratory: Reports: Shortness of Breath. Denies: Cough, Sputum production Gastrointestinal: Reports: Abdominal Pain. Denies: Nausea, Vomiting Genitourinary: Denies: Dysuria Musculoskeletal: Denies: Joint Pain, Joint Tenderness Skin: Denies: Rash, Wounds Neurological: Denies: Numbness, Tingling, Focal weakness Psychiatric: Denies: Anxiety, Depression, Homicidal Ideations, Suicidal Ideations Hematologic/ Lymphatic: Denies: Easy Bruising, Easy Bleeding VTE Information - Inpt Only VTE Present on Admission: No VTE Mechan Device Prophylaxis: None VTE Pharm Prophylaxis ordered?: No Reason prophylaxis not ordered:: Treatment Not Indicated - Continue home Coumadin for A. fib. Patient Problems: Active and Suspected Problems (Last Reviewed 07/08/20 @ 23:[address] Akash Jose MD) Near syncope (Acute) Acute kidney injury (Acute) Orthostatic hypotension (Acute) Lactic acidosis (Acute) - Physical Exam Vitals/I&O's: Vital Signs Temp Pulse Resp BP Pulse Ox 99.6 F H 79 21 H 157/76 H 94 07/08/20 21:00 07/08/20 21:00 07/08/20 21:00 07/08/20 21:00 07/08/20 21:00 Oxygen Flow Rate (L/min) 4 Oxygen Delivery Method Nasal Cannula Weight: 135.2 kg Body Mass Index (BMI) 45.3 Intake and Output for Last 24 Hours 07/06/20 07/07/20 07/08/20 23:59 23:59 23:59 Intake Total 1000 / 1000 Balance 1000 / 1000 General: Alert, Oriented x3, Cooperative HEENT: Atraumatic, PERRLA, EOMI, Normocephalic Neck: Supple, No JVD, Negative Carotid Bruits Lungs: Clear to auscultation, Normal air movement Cardiovascular: Regular rate, Regular Rhythm, Normal S1, Normal S2, No murmurs Abdomen: Bowel Sounds Present, Soft, Non Tender Extremities: No edema, Capillary Refill Less than 3 Seconds Skin: No rashes, No breakdown Musculoskeletal: No Tenderness to Palpation of Joints or Extremities Neurological: Cranial nerves II-XII grossly intact Psych/Mental Status: Normal Affect, Appropriate Laboratory Results 07/08/20 17:30: WBC 8.2, RBC 4.38, Hgb 13.1, Hct 43.1, MCV 98.4, MCH 29.9, MCHC 30.4 L, RDW Std Deviation 52.1 H, RDW Coeff of Angelika 14.4, Plt Count 138 L, MPV 11.2, Immature Gran % (Auto) 0.400, Neut % (Auto) 77.9 H, Lymph % (Auto) 14.8 L, [place] % (Auto) 6.7, Eos % (Auto) 0.0, Baso % (Auto) 0.2, Absolute Neuts (auto) 6.4, Absolute Lymphs (auto) 1.22, Nucleated RBC % 0 07/08/20 17:30: Sodium 136, Potassium 5.0, Chloride 105, Carbon Dioxide 26.0, Anion Gap 5, BUN 27 H, Creatinine 2.54 H, Estim Creat Clear Calc 21.68, Est GFR (MDRD) Af Amer 24 L, Est GFR (MDRD) Non-Af 20 L, BUN/Creatinine Ratio 10.6, Glucose 182 H, Calcium 8.5, Total Bilirubin 0.70, AST 13 L, ALT 15, Alkaline Phosphatase 72, Troponin I 0.018, Total Protein 9.1 H, Albumin 3.3, Globulin 5.8 H, Albumin/Globulin Ratio 0.6 L 07/08/20 17:30: Lactic Acid 2.1 H* 07/08/20 17:30: PT 22.7 H, INR 2.1 07/08/20 19:25: Urine Color Yellow, Urine Clarity Sl. Cloudy, Urine pH 6.0, Ur Specific [place] 1.010, Urine Protein 500 H, Urine Glucose (UA) 100 H, Urine Ketones Negative, Urine Occult Blood 50 H, Urine Nitrite Negative, Urine Bilirubin Negative, Urine Urobilinogen Normal, Ur Leukocyte Esterase Negative, Urine RBC 5-10 SEEN, Urine WBC 10-25 SEEN, Ur Squamous Epith Cells 0-5 SEEN, Urine Bacteria 0 SEEN, Hyaline Casts 0-5 SEEN, Fine Granular Casts 0-5 SEEN, Urine Mucus 0 SEEN 07/08/20 21:24: COVID-19 (АНДРЕЙ) Pending Assessment/Plan All Active Problems (Last Reviewed 07/08/20 @ 23:[address] Akash Jose MD) Near syncope (Acute) Acute kidney injury (Acute) Orthostatic hypotension (Acute) Lactic acidosis (Acute) ESPERANZA (acute kidney injury) (Resolved) Acute hypoxemic respiratory insufficiency secondary to SARS COVID-19 Oxygen saturation on arrival was 80% on room air. Paramedics report the patient had hypoxia prior to presentation. Impression of chest x-ray by radiologist: Bilateral midlung atelectasis. Actual chest x-ray independently read by me: Bilateral opacities. Discussed with emergent department doctor to get a COVID-19 test since patient had a fever; and chest x-ray was hazy. A Covid test came back positive. Because of hypoxia will start patient on Decadron 6 mg p.o. daily. Will give one-time dose of Decadron 6 mg IV.. Procalcitonin ordered. Patient is already on warfarin and his INR is therapeutic. Tylenol for fever Infectious disease consult Enhanced droplet precautions. Near syncope/lightheadedness/orthostatic hypotension Patient was orthostatic positive at emergency department. Lightheadedness/near syncope likely secondary to orthostasis. Cannot rule out Covid causing lightheadedness and orthostasis. Received normal saline at emergency department Continue patient on gentle IV hydration Orthostatic blood pressure in a.m.'s. Received ceftriaxone at the emergency department because of mild urine leukocytes and occult blood. Hold off further antibiotics at this time. Urine abnormality secondary to likely diabetic nephropathy. 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 Creatinine is 2.54 Baseline creatinine is around 2.20 BUN over creatinine is 10.6 Gentle IV hydration ordered Avoid nephrotoxic's. Hold home losartan. Trend BMP. Diabetes mellitus Blood glucose is elevated On DPP 4 inhibitors; and Lantus insulin.. Accu-Chek with correction scale insulin ordered. Hypertension Blood pressure elevated but with orthostasis. On amlodipine Hold home losartan secondary to ESPERANZA Trend blood pressure and adjust blood pressure medications. Proximal A. fib Patient with sinus rhythm with mild first-degree AV block Coumadin continued Daily PT/INR. DVT prophylaxis Not indicated since patient is INR is therapeutic on Coumadin. Coumadin continued. OBSV E&M: [id number] Initial observation care L3
[2020-07-08 22:40] LABS: Probe Check PASS; Specimen Processing Control PASS
[2020-07-08 23:14] LABS: Lactic Acid 0.8 mmol/L (0.4-1.9)
[2020-07-09] VITALS (19 sets, daily range): BP systolic 126–159; BP diastolic 54–97; PULSE 59–91; RESP 16–20; TEMP 36.6–37; O2SAT 92–96
[2020-07-09 00:19] LABS: Procalcitonin 0.24 ng/mL (0.00-0.09); Vitamin D,25 Hydroxy 41.6 ng/mL
[2020-07-09] MEDS: 0.9% Normal Saline 1,000 ML 100 ML IV ×3 (00:46→19:09)
[2020-07-09] MEDS: dexAMETHasone 4 MG/ML Vial 6 MG IV (00:46)
[2020-07-09] MEDS: Menthol/Lanolin/Calamine/Znox 113 GM Tube 1 APPLIC TOPICAL ×3 (00:54→21:45)
[2020-07-09] MEDS: Nystatin Powder 15gm Bottle 1 APPLIC TOPICAL ×3 (00:55→21:45)
[2020-07-09] MEDS: Acetaminophen 325 MG Tablet 650 MG PO (04:12)
[2020-07-09 08:56] LABS: Bedside Glucose 258 mg/dL (70-110)
[2020-07-09] MEDS: dexAMETHasone 2 MG TABLET 6 MG PO (09:40)
[2020-07-09] MEDS: Glucerna Shake 120 ML LIQUID PO ×4 (09:40→21:44)
[2020-07-09] MEDS: Insulin Lispro 100 UNIT/ML INSULN.PEN SC ×4 (09:41→21:43)
[2020-07-09 10:39] LABS: Absolute Lymphocyte Count 0.74 X10^3/uL (0.83-4.51); Absolute Neutrophil Count 3.5 X10^3/uL (2.0-7.7); Basophil# 0.01 X10^3/uL; Basophil% 0.2 % (0-1); Hemoglobin 11.7 g/dL (12.0-15.0); Lymphocyte # 0.74 X10^3/ul (4.0); Mean Corp Hgb Conc 29.3 g/dL (32-36); Mean Corpuscular Hgb 29.5 pg (27.0-32.0); Mean Platelet Vol. 11.6 fl (6.2-12.0); Monocyte# 0.09 X10^3/uL; Monocyte% 2.1 % (0-10); NRBC Flagged by Analyzer 0 % (0-5); Neutrophil # 3.49 X10^3/uL (2.7-7.7); Platelet Count 118 K/mm3 (150-450); RBC Distribution Width CV 14.6 % (11.6-14.6); RBC Distribution Width SD 55.1 fl (35.1-43.9); Red Blood Count 3.96 M/mm3 (4.2-5.4); White Blood Count 4.4 K/mm3 (4.4-11.0)
[2020-07-09 10:53] LABS: International Normalized Ratio 2.3
[2020-07-09 11:04] LABS: Anion Gap 6 (5-15); BUN 33 mg/dL (7-18); BUN/Creat Ratio 13.9 RATIO (10-20); Calcium,Total 7.5 mg/dL (8.5-10.1); Chloride 106 mmol/L (98-107); Creatinine, Serum 2.38 mg/dL (0.55-1.02); EST Glomerular Filtration Rate 22 mL/min (>60); Est Glom Filt Rate - Afr Amer 26 mL/min (>60); Estimated Creatinine Clearance 22.31 ml/min; Glucose 282 mg/dL (74-106); Potassium 5.2 mmol/L (3.5-5.1); Sodium Level 136 mmol/L (136-145)
[2020-07-09 12:41] LABS: Bedside Glucose 306 mg/dL (70-110)
--- NOTE | 2020-07-09 15:31 | PN_ITS ---
Patient Problems: Active and Suspected Problems (Last Reviewed 07/08/20 @ 23:[address] Akash Jose MD) Near syncope (Acute) Acute kidney injury (Acute) Orthostatic hypotension (Acute) Lactic acidosis (Acute) Subjective: Feels little bit better, no issues overnight. Denies any lightheadedness or dizziness. Vitals/I&O's: Vital Signs Temp Pulse Resp BP Pulse Ox 97.9 F 61 18 138/64 H 96 07/09/20 14:50 07/09/20 14:50 07/09/20 14:50 07/09/20 14:50 07/09/20 14:51 Oxygen Flow Rate (L/min) 4 Oxygen Delivery Method Nasal Cannula Weight: 286 lb Body Mass Index (BMI) 44.8 Orthostatic Vital Signs Start: 07/09/20 06:16 Freq: q24h Status: Active Protocol: Activity Type Activity Date Activity User E-Sign Co-Sign Detail Recorded Client Recorded Date Recorded By Document 07/09/20 06:16 EV [id number] 07/09/20 06:28 EV 07/09/20 06:16 Orthostatic Vitals Standing -Blood Pressure (90/60-120/80) 159/97 H -Extremity Use Left Arm -Pulse Rate (60-100) 91 Sitting -Blood Pressure (90/60-120/80) 145/67 H -Extremity Use Left Arm -Pulse Rate (60-100) 76 Lying -Blood Pressure (90/60-120/80) 146/61 H -Extremity Use Right Arm -Pulse Rate (60-100) 69 Intake and Output for Last 24 Hours 07/07/20 07/08/20 07/09/20 23:59 23:59 23:59 Intake Total 1050 / 1050 1741.67 / 1741.67 Balance 1050 / 1050 1741.67 / 1741.67 General: Alert, Oriented x3, Cooperative, No apparent distress HEENT: Atraumatic, PERRLA, EOMI, Normocephalic Oral: Moist Mucosa Neck: Supple, No JVD Lungs: Clear to auscultation, Normal air movement, No rhonchi, No wheeze, No rales, Diminished Cardiovascular: Regular rate, Regular Rhythm, Normal S1, Normal S2, No murmurs Abdomen: Soft, Non Tender, Non-Distended, No Hepato-splenomegaly Extremities: No edema, Capillary Refill Less than 3 Seconds Neurological: Neuro grossly intact, Sensory exam intact to light touch and pain Psych/Mental Status: Normal Affect, Appropriate Laboratory Results 07/08/20 17:30: WBC 8.2, RBC 4.38, Hgb 13.1, Hct 43.1, MCV 98.4, MCH 29.9, MCHC 30.4 L, RDW Std Deviation 52.1 H, RDW Coeff of Angelika 14.4, Plt Count 138 L, MPV 11.2, Immature Gran % (Auto) 0.400, Neut % (Auto) 77.9 H, Lymph % (Auto) 14.8 L, [place] % (Auto) 6.7, Eos % (Auto) 0.0, Baso % (Auto) 0.2, Absolute Neuts (auto) 6.4, Absolute Lymphs (auto) 1.22, Nucleated RBC % 0 07/08/20 17:30: Sodium 136, Potassium 5.0, Chloride 105, Carbon Dioxide 26.0, Anion Gap 5, BUN 27 H, Creatinine 2.54 H, Estim Creat Clear Calc 21.68, Est GFR (MDRD) Af Amer 24 L, Est GFR (MDRD) Non-Af 20 L, BUN/Creatinine Ratio 10.6, Glucose 182 H, Calcium 8.5, Total Bilirubin 0.70, AST 13 L, ALT 15, Alkaline Phosphatase 72, Troponin I 0.018, Total Protein 9.1 H, Albumin 3.3, Globulin 5.8 H, Albumin/Globulin Ratio 0.6 L 07/08/20 17:30: Lactic Acid 2.1 H* 07/08/20 17:30: PT 22.7 H, INR 2.1 07/08/20 17:30: Vitamin B12 Pending, Vitamin D 25-Hydroxy 41.6, Procalcitonin 0.24 H 07/08/20 19:25: Urine Color Yellow, Urine Clarity Sl. Cloudy, Urine pH 6.0, Ur Specific Baird 1.010, Urine Protein 500 H, Urine Glucose (UA) 100 H, Urine Ketones Negative, Urine Occult Blood 50 H, Urine Nitrite Negative, Urine Bilirubin Negative, Urine Urobilinogen Normal, Ur Leukocyte Esterase Negative, Urine RBC 5-10 SEEN, Urine WBC 10-25 SEEN, Ur Squamous Epith Cells 0-5 SEEN, Urine Bacteria 0 SEEN, Hyaline Casts 0-5 SEEN, Fine Granular Casts 0-5 SEEN, Urine Mucus 0 SEEN 07/08/20 21:24: COVID-19 (АНДРЕЙ) Positive 07/08/20 22:15: Lactic Acid 0.8 07/09/20 06:27: POC Glucose 258 H 07/09/20 07:10: WBC 4.4, RBC 3.96 L, Hgb 11.7 L, Hct 40.0, MCV 101.0 H, MCH 29.5, MCHC 29.3 L, RDW Std Deviation 55.1 H, RDW Coeff of Angelika 14.6, Plt Count 118 L, MPV 11.6, Immature Gran % (Auto) 0.700, Neut % (Auto) 80.0 H, Lymph % (Auto) 17.0 L, Hutchinson % (Auto) 2.1, Eos % (Auto) 0.0, Baso % (Auto) 0.2, Absolute Neuts (auto) 3.5, Absolute Lymphs (auto) 0.74 L, Nucleated RBC % 0 07/09/20 07:10: PT 25.0 H, INR 2.3 07/09/20 07:10: Sodium 136, Potassium 5.2 H, Chloride 106, Carbon Dioxide 24.0, Anion Gap 6, BUN 33 H, Creatinine 2.38 H, Estim Creat Clear Calc 22.31, Est GFR (MDRD) Af Amer 26 L, Est GFR (MDRD) Non-Af 22 L, BUN/Creatinine Ratio 13.9, Glucose 282 H, Calcium 7.5 L 07/09/20 12:11: POC Glucose 306 H Current Medications Acetaminophen (Acetaminophen 325 Mg Tablet) 650 mg PO Q6H PRN PRN PRN Reason: Pain Score 1-10/Temp > 100.7 F Last Admin: 07/09/20 04:12 Dose: 650 mg Documented by: Calamine/Phenol (Menthol/Lanolin/Calamine/Znox 113 Gm Tube) 1 applic TOPICAL BID [facility]; Protocol Last Admin: 07/09/20 09:44 Dose: 1 applicatio Documented by: Dexamethasone (Dexamethasone 2 Mg Tablet) 6 mg PO DAILY@0800 [facility] Last Admin: 07/09/20 09:40 Dose: 6 mg Documented by: Dextrose (Dextrose 50%-Water 25 Gm/50 Ml Disp.Syrin) 0 gm IV X1 PRN; Protocol PRN Reason: Hypoglycemia Glucagon (Glucagon 1 Mg/Ml Syringe) 1 mg IM .X1 PRN PRN Reason: Hypoglycemia Sodium Chloride () 1,000 mls @ 100 mls/hr IV .Q10H [facility] Last Admin: 07/09/20 09:47 Dose: 100 mls/hr Documented by: Insulin Human Lispro (Insulin Lispro 100 Unit/Ml Insuln.Pen) [facility]; Protocol Last Admin: 07/09/20 12:12 Dose: 4 u Documented by: Melatonin (Melatonin 3 Mg Tablet) 3 mg PO QHS PRN PRN PRN Reason: INSOMNIA Nutritional Formula (Lactose Free) (Glucerna Shake 120 Ml Liquid) 120 ml PO 4X/DAYCM [facility] Last Admin: 07/09/20 12:16 Dose: 120 ml Documented by: Nystatin (Nystatin Powder 15gm Bottle) 1 applic TOPICAL BID [facility]; Protocol Last Admin: 07/09/20 09:44 Dose: 1 applicatio Documented by: Ondansetron HCl (Ondansetron 4 Mg/2 Ml Vial) 4 mg IV Q8H PRN PRN PRN Reason: NAUSEA/VOMITING Sodium Chloride (0.9% Saline Lock 10 Ml Syringe) 10 - 40 ml IV UD PRN PRN Reason: SALINE FLUSH Warfarin Sodium (Warfarin 2.5 Mg Tablet) 2.5 mg PO DAILY@1700 [facility] Last Admin: 07/09/20 00:53 Dose: 2.5 mg Documented by: STROKE Vital Signs/Narrative: Vital Signs Temp Pulse Resp BP Pulse Ox 07/09/20 14:51 96 07/09/20 14:50 97.9 F 61 18 138/64 H 96 07/09/20 12:02 93 07/09/20 12:01 92 Medical Necessity - Tobacco Use Smoking Status: Never smoker Assessment/Plan All Active Problems (Last Reviewed 07/08/20 @ 23:[address] Akash Jose MD) Near syncope (Acute) Acute kidney injury (Acute) Orthostatic hypotension (Acute) Lactic acidosis (Acute) ESPERANZA (acute kidney injury) (Resolved) 1. Acute hypoxic respiratory failure secondary to COVID-19 pneumonia/near syncope with orthostatic hypotension/ESPERANZA on CKD 4 -She is currently on 4 L nasal cannula, will continue to monitor. -Continue with Decadron -Creatinine has improved today to 2.38 -And she denies any dizziness dizziness -ID consult pending 2. DM 2/morbid obesity -She is supposed to be on 74 units of long-acting insulin however this is unconfirmed. Given the fact that she is on steroids lately start her on Lantus 35 units nightly as well as sliding scale insulin -May need to add mealtimes -Accu-Cheks AC at bedtime -BMI is 44, discussed lifestyle modifications 3. Paroxysmal A. fib/HTN/HLD -Blood pressure is currently stable, does appear that she is on Norvasc and losartan however these have not been confirmed -Want to confirm that she feels these will restart -Continue with Coumadin and monitor INR currently 2.3 DVT: Coumadin OBSV E&M: [id number] Subsequent observation care L2
[2020-07-09 17:36] LABS: Bedside Glucose 278 mg/dL (70-110)
[2020-07-09 22:11] LABS: Bedside Glucose 337 mg/dL (70-110)
[2020-07-10] VITALS (17 sets, daily range): BP systolic 143–173; BP diastolic 67–91; PULSE 60–91; RESP 18–20; TEMP 36.7–37; O2SAT 90–98
[2020-07-10] MEDS: Acetaminophen 325 MG Tablet 650 MG PO ×2 (01:36→23:02)
[2020-07-10] MEDS: 0.9% Normal Saline 1,000 ML 100 ML IV ×3 (04:46→23:00)
[2020-07-10 06:29] LABS: Absolute Lymphocyte Count 1.03 X10^3/uL (0.83-4.51); Absolute Neutrophil Count 2.3 X10^3/uL (2.0-7.7); Hematocrit 39.3 % (37-47); Hemoglobin 11.6 g/dL (12.0-15.0); Lymphocyte # 1.03 X10^3/ul (4.0); Mean Corp Hgb Conc 29.5 g/dL (32-36); Mean Corpuscular Hgb 29.4 pg (27.0-32.0); Mean Corpuscular Volume 99.5 fL (81-99); Mean Platelet Vol. 11.3 fl (6.2-12.0); Monocyte% 8.2 % (0-10); NRBC Flagged by Analyzer 0 % (0-5); Neutrophil # 2.34 X10^3/uL (2.7-7.7); Neutrophil % 63.5 % (47-70); Platelet Count 141 K/mm3 (150-450); RBC Distribution Width CV 14.6 % (11.6-14.6); RBC Distribution Width SD 53.4 fl (35.1-43.9); Red Blood Count 3.95 M/mm3 (4.2-5.4); White Blood Count 3.7 K/mm3 (4.4-11.0)
[2020-07-10 06:56] LABS: Anion Gap 7 (5-15); BUN 44 mg/dL (7-18); Calcium,Total 7.3 mg/dL (8.5-10.1); Chloride 108 mmol/L (98-107); Creatinine, Serum 2.31 mg/dL (0.55-1.02); EST Glomerular Filtration Rate 22 mL/min (>60); Est Glom Filt Rate - Afr Amer 27 mL/min (>60); Estimated Creatinine Clearance 22.98 ml/min; Glucose 353 mg/dL (74-106); Potassium 4.8 mmol/L (3.5-5.1); Sodium Level 135 mmol/L (136-145)
[2020-07-10 07:04] LABS: International Normalized Ratio 2.5; Prothrombin Time (Protime)PT. 26.4 SECONDS (11.7-14.9)
[2020-07-10] MEDS: dexAMETHasone 2 MG TABLET 6 MG PO (08:17)
[2020-07-10] MEDS: Insulin Lispro 100 UNIT/ML INSULN.PEN SC ×5 (08:31→20:22)
[2020-07-10] MEDS: Gabapentin 100 MG Capsule PO ×3 (08:31→20:18)
[2020-07-10] MEDS: Glucerna Shake 120 ML LIQUID PO ×2 (08:31→11:19)
[2020-07-10] MEDS: Menthol/Lanolin/Calamine/Znox 113 GM Tube 1 APPLIC TOPICAL ×2 (10:28→20:17)
[2020-07-10] MEDS: Nystatin Powder 15gm Bottle 1 APPLIC TOPICAL ×2 (10:29→20:18)
--- NOTE | 2020-07-10 12:08 | PCM.PN.HOSP ---
Patient Problems: Active and Suspected Problems (Last Reviewed 07/08/20 @ 23:[address] Akash Jose MD) Near syncope (Acute) Acute kidney injury (Acute) Orthostatic hypotension (Acute) Lactic acidosis (Acute) Subjective: Doing well, requiring 3 L nasal cannula Vitals/I&O's: Vital Signs Temp Pulse Resp BP Pulse Ox 98.6 F 65 18 159/71 H 98 07/10/20 08:03 07/10/20 10:35 07/10/20 08:03 07/10/20 08:03 07/10/20 08:03 Oxygen Flow Rate (L/min) 3 Oxygen Delivery Method Nasal Cannula Weight: 286 lb Body Mass Index (BMI) 44.8 Orthostatic Vital Signs Start: 07/09/20 06:16 Freq: q24h Status: Active Protocol: Activity Type Activity Date Activity User E-Sign Co-Sign Detail Recorded Client Recorded Date Recorded By Document 07/10/20 06:12 [facility] [id number] 07/10/20 06:19 [facility] 07/10/20 06:12 Orthostatic Vitals Standing -Blood Pressure (90/60-120/80) 173/85 H -Extremity Use Right Arm -Pulse Rate (60-100) 91 Sitting -Blood Pressure (90/60-120/80) 160/84 H -Extremity Use Right Arm -Pulse Rate (60-100) 78 Lying -Blood Pressure (90/60-120/80) 151/74 H -Extremity Use Right Arm -Pulse Rate (60-100) 66 Intake and Output for Last 24 Hours 07/08/20 07/09/20 07/10/20 23:59 23:59 23:59 Intake Total 1050 / 1050 2978.34 / 2978.34 1711.67 / 1711.67 Balance 1050 / 1050 2978.34 / 2978.34 1711.67 / 1711.67 General: Alert, Oriented x3, Cooperative, No apparent distress HEENT: Atraumatic, PERRLA, EOMI, Normocephalic Oral: Moist Mucosa Neck: Supple, No JVD Lungs: Clear to auscultation, Normal air movement, No rhonchi, No wheeze, No rales, Diminished Cardiovascular: Regular rate, Regular Rhythm, Normal S1, Normal S2, No murmurs Abdomen: Soft, Non Tender, Non-Distended, No Hepato-splenomegaly Extremities: No edema, Capillary Refill Less than 3 Seconds Neurological: Neuro grossly intact, Sensory exam intact to light touch and pain Psych/Mental Status: Normal Affect, Appropriate Microbiology Past 72 Hours 07/08/20 19:25 Urine, Catheterized Urine Culture - Preliminary Culture exhibits no growth. Laboratory Results 07/09/20 12:11: POC Glucose 306 H 07/09/20 17:20: POC Glucose 278 H 07/09/20 21:43: POC Glucose 337 H 07/10/20 05:27: PT 26.4 H, INR 2.5 07/10/20 05:27: WBC 3.7 L, RBC 3.95 L, Hgb 11.6 L, Hct 39.3, MCV 99.5 H, MCH 29.4, MCHC 29.5 L, RDW Std Deviation 53.4 H, RDW Coeff of Angelika 14.6, Plt Count 141 L, MPV 11.3, Immature Gran % (Auto) 0.300, Neut % (Auto) 63.5, Lymph % (Auto) 28.0, [place] % (Auto) 8.2, Eos % (Auto) 0.0, Baso % (Auto) 0.0, Absolute Neuts (auto) 2.3, Absolute Lymphs (auto) 1.03, Nucleated RBC % 0 07/10/20 05:27: Sodium 135 L, Potassium 4.8, Chloride 108 H, Carbon Dioxide 20.0 L, Anion Gap 7, BUN 44 H, Creatinine 2.31 H, Estim Creat Clear Calc 22.98, Est GFR (MDRD) Af Amer 27 L, Est GFR (MDRD) Non-Af 22 L, BUN/Creatinine Ratio 19.0, Glucose 353 H, Calcium 7.3 L Current Medications Acetaminophen (Acetaminophen 325 Mg Tablet) 650 mg PO Q6H PRN PRN PRN Reason: Pain Score 1-10/Temp > 100.7 F Last Admin: 07/10/20 01:36 Dose: 650 mg Documented by: Calamine/Phenol (Menthol/Lanolin/Calamine/Znox 113 Gm Tube) 1 applic TOPICAL BID [facility]; Protocol Last Admin: 07/10/20 10:28 Dose: 1 applicatio Documented by: Dexamethasone (Dexamethasone 2 Mg Tablet) 6 mg PO DAILY@0800 [facility] Last Admin: 07/10/20 08:17 Dose: 6 mg Documented by: Dextrose (Dextrose 50%-Water 25 Gm/50 Ml Disp.Syrin) 0 gm IV X1 PRN; Protocol PRN Reason: Hypoglycemia Gabapentin (Gabapentin 100 Mg Capsule) 100 mg PO TID@0800,1200,2200 [facility] Last Admin: 07/10/20 08:31 Dose: 100 mg Documented by: Glucagon (Glucagon 1 Mg/Ml Syringe) 1 mg IM .X1 PRN PRN Reason: Hypoglycemia Sodium Chloride () 1,000 mls @ 100 mls/hr IV .Q10H [facility] Last Admin: 07/10/20 04:46 Dose: 100 mls/hr Documented by: Insulin Glargine (Insulin Glargine 100 Units/Ml Pen) 30 units SC BID [facility] Insulin Human Lispro (Insulin Lispro 100 Unit/Ml Insuln.Pen) 0 unit SC 4X/DAYCM [facility]; Protocol Last Admin: 07/10/20 11:19 Dose: 5 u Documented by: Insulin Human Lispro (Insulin Lispro 100 Unit/Ml Insuln.Pen) 5 unit SC TIDAC [facility] Melatonin (Melatonin 3 Mg Tablet) 3 mg PO QHS PRN PRN PRN Reason: INSOMNIA Nutritional Formula (Lactose Free) (Glucerna Shake 120 Ml Liquid) 120 ml PO 4X/DAYCM [facility] Last Admin: 07/10/20 11:19 Dose: 120 ml Documented by: Nystatin (Nystatin Powder 15gm Bottle) 1 applic TOPICAL BID [facility]; Protocol Last Admin: 07/10/20 10:29 Dose: 1 applicatio Documented by: Ondansetron HCl (Ondansetron 4 Mg/2 Ml Vial) 4 mg IV Q8H PRN PRN PRN Reason: NAUSEA/VOMITING Sodium Chloride (0.9% Saline Lock 10 Ml Syringe) 10 - 40 ml IV UD PRN PRN Reason: SALINE FLUSH Warfarin Sodium (Warfarin 2.5 Mg Tablet) 2.5 mg PO DAILY@1700 [facility] Last Admin: 07/09/20 17:24 Dose: 2.5 mg Documented by: STROKE Vital Signs/Narrative: Vital Signs Pulse 07/10/20 10:35 65 Medical Necessity - Tobacco Use Smoking Status: Never smoker Assessment/Plan All Active Problems (Last Reviewed 07/08/20 @ 23:[address] Akash Jose MD) Near syncope (Acute) Acute kidney injury (Acute) Orthostatic hypotension (Acute) Lactic acidosis (Acute) ESPERANZA (acute kidney injury) (Resolved) 1. Acute hypoxic respiratory failure secondary to COVID-19 pneumonia/near syncope with orthostatic hypotension/ESPERANZA on CKD 4 -She is currently on 3 L nasal cannula, will continue to monitor. -Continue with Decadron, can obtain an ambulatory pulse ox in the morning to assess for oxygen requirements at home -Creatinine has improved today to 2.31 -And she denies any dizziness -ID consult pending 2. DM 2/morbid obesity -She is supposed to be on 74 units of long-acting insulin however this is unconfirmed. Given the fact that she is on steroids, continue with Lantus 30 units twice daily, mealtime insulin at 5 units, and a sliding scale insulin -May need to add mealtimes -Accu-Cheks AC at bedtime -BMI is 44, discussed lifestyle modifications 3. Paroxysmal A. fib/HTN/HLD -Blood pressure is currently stable, does appear that she is on Norvasc and losartan however these have not been confirmed -Want to confirm that she feels these will restart -Continue with Coumadin and monitor INR currently 2.5 DVT: Coumadin Inpatient E&M: [id number] Subs Hosp L2
[2020-07-10 13:17] LABS: Magnesium 2.1 mg/dL (1.6-2.6); Phosphorus 2.8 mg/dL (2.5-4.9)
[2020-07-10] MEDS: MELATONIN 3 MG TABLET PO ×2 (13:50→23:03)
[2020-07-10 15:46] LABS: Bedside Glucose 346 mg/dL (70-110)
[2020-07-10 17:11] LABS: Bedside Glucose 327 mg/dL (70-110)
[2020-07-10 21:45] LABS: Bedside Glucose 279 mg/dL (70-110)
[2020-07-11] VITALS (9 sets, daily range): BP systolic 144–178; BP diastolic 71–130; PULSE 59–86; RESP 18; TEMP 36.6–36.9; O2SAT 84–95
[2020-07-11 06:54] LABS: International Normalized Ratio 2.3; Prothrombin Time (Protime)PT. 24.7 SECONDS (11.7-14.9)
[2020-07-11 07:13] LABS: Anion Gap 8 (5-15); BUN 46 mg/dL (7-18); BUN/Creat Ratio 22.4 RATIO (10-20); Calcium,Total 7.5 mg/dL (8.5-10.1); Chloride 114 mmol/L (98-107); Creatinine, Serum 2.05 mg/dL (0.55-1.02); EST Glomerular Filtration Rate 26 mL/min (>60); Est Glom Filt Rate - Afr Amer 31 mL/min (>60); Glucose 203 mg/dL (74-106); Potassium 4.9 mmol/L (3.5-5.1); Sodium Level 141 mmol/L (136-145)
--- NOTE | 2020-07-11 08:13 | PN_ITS ---
Patient Problems: Active and Suspected Problems (Last Reviewed 07/08/20 @ 23:[address] Akash Jose MD) Near syncope (Acute) Acute kidney injury (Acute) Orthostatic hypotension (Acute) Lactic acidosis (Acute) Reason for Visit: COVID-19 pneumonia hypoxia Objective: Temperature 97.9. On 3 L of oxygen. Blood pressure orthostatic did not show change in the blood pressure or heart rate. Vitals/I&O's: Vital Signs Temp Pulse Resp BP Pulse Ox 97.9 F 68 18 158/84 H 95 07/11/20 04:00 07/11/20 04:12 07/11/20 04:00 07/11/20 04:12 07/11/20 04:00 Oxygen Flow Rate (L/min) 3 Oxygen Delivery Method Nasal Cannula Weight: 285 lb 15.033 oz Body Mass Index (BMI) 44.8 Orthostatic Vital Signs Start: 07/09/20 06:16 Freq: q24h Status: Active Protocol: Activity Type Activity Date Activity User E-Sign Co-Sign Detail Recorded Client Recorded Date Recorded By Document 07/11/20 04:12 [facility] [id number] 07/11/20 04:22 [facility] 07/11/20 04:12 Orthostatic Vitals Standing -Blood Pressure (90/60-120/80) 169/91 H -Extremity Use Left Arm -Pulse Rate (60-100) 86 Sitting -Blood Pressure (90/60-120/80) 178/87 H -Extremity Use Left Arm -Pulse Rate (60-100) 64 Lying -Blood Pressure (90/60-120/80) 158/84 H -Extremity Use Left Arm -Pulse Rate (60-100) 68 Intake and Output for Last 24 Hours 07/09/20 07/10/20 07/11/20 23:59 23:59 23:59 Intake Total 2978.34 / 2978.34 3535.00 / 4035.00 900 / 900 Balance 2978.34 / 2978.34 3535.00 / 4035.00 900 / 900 Microbiology Past 72 Hours 07/08/20 19:25 Urine, Catheterized Urine Culture - Preliminary Culture exhibits no growth. Laboratory Results 07/10/20 05:27: PT 26.4 H, INR 2.5 07/10/20 11:18: POC Glucose 346 H 07/10/20 12:35: Phosphorus 2.8, Magnesium 2.1 07/10/20 16:18: POC Glucose 327 H 07/10/20 20:21: POC Glucose 279 H 07/11/20 05:56: PT 24.7 H, INR 2.3 07/11/20 05:56: Sodium 141, Potassium 4.9, Chloride 114 H, Carbon Dioxide 19.0 L , Anion Gap 8, BUN 46 H, Creatinine 2.05 H, Estim Creat Clear Calc 25.90, Est GFR (MDRD) Af Amer 31 L, Est GFR (MDRD) Non-Af 26 L, BUN/Creatinine Ratio 22.4 H , Glucose 203 H, Calcium 7.5 L Current Medications Acetaminophen (Acetaminophen 325 Mg Tablet) 650 mg PO Q6H PRN PRN PRN Reason: Pain Score 1-10/Temp > 100.7 F Last Admin: 07/10/20 23:02 Dose: 650 mg Documented by: Calamine/Phenol (Menthol/Lanolin/Calamine/Znox 113 Gm Tube) 1 applic TOPICAL BID [facility]; Protocol Last Admin: 07/10/20 20:17 Dose: 1 applicatio Documented by: Dexamethasone (Dexamethasone 2 Mg Tablet) 6 mg PO DAILY@0800 [facility] Last Admin: 07/10/20 08:17 Dose: 6 mg Documented by: Dextrose (Dextrose 50%-Water 25 Gm/50 Ml Disp.Syrin) 0 gm IV X1 PRN; Protocol PRN Reason: Hypoglycemia Gabapentin (Gabapentin 100 Mg Capsule) 100 mg PO TID@0800,1200,2200 [facility] Last Admin: 07/10/20 20:18 Dose: 100 mg Documented by: Glucagon (Glucagon 1 Mg/Ml Syringe) 1 mg IM .X1 PRN PRN Reason: Hypoglycemia Sodium Chloride () 1,000 mls @ 100 mls/hr IV .Q10H [facility] Last Admin: 07/10/20 23:00 Dose: 100 mls/hr Documented by: Insulin Glargine (Insulin Glargine 100 Units/Ml Pen) 30 units SC BID [facility] Last Admin: 07/10/20 20:23 Dose: 30 units Documented by: Insulin Human Lispro (Insulin Lispro 100 Unit/Ml Insuln.Pen) 0 unit SC 4X/DAYCM [facility]; Protocol Last Admin: 07/10/20 20:22 Dose: 4 u Documented by: Insulin Human Lispro (Insulin Lispro 100 Unit/Ml Insuln.Pen) 5 unit SC TIDAC [facility] Last Admin: 07/10/20 16:19 Dose: 5 units Documented by: Melatonin (Melatonin 3 Mg Tablet) 3 mg PO QHS PRN PRN PRN Reason: INSOMNIA Last Admin: 07/10/20 23:03 Dose: 3 mg Documented by: Nystatin (Nystatin Powder 15gm Bottle) 1 applic TOPICAL BID [facility]; Protocol Last Admin: 07/10/20 20:18 Dose: 1 applicatio Documented by: Ondansetron HCl (Ondansetron 4 Mg/2 Ml Vial) 4 mg IV Q8H PRN PRN PRN Reason: NAUSEA/VOMITING Sodium Chloride (0.9% Saline Lock 10 Ml Syringe) 10 - 40 ml IV UD PRN PRN Reason: SALINE FLUSH Warfarin Sodium (Warfarin 2.5 Mg Tablet) 2.5 mg PO DAILY@1700 [facility] Last Admin: 07/10/20 16:21 Dose: 2.5 mg Documented by: Medical Necessity - Tobacco Use Smoking Status: Never smoker Assessment/Plan All Active Problems (Last Reviewed 07/08/20 @ 23:[address] Akash Jose MD) Near syncope (Acute) Acute kidney injury (Acute) Orthostatic hypotension (Acute) Lactic acidosis (Acute) ESPERANZA (acute kidney injury) (Resolved) 1. Acute hypoxic respiratory failure secondary to COVID-19 pneumonia/near syncope with orthostatic hypotension/ESPERANZA on CKD 4 -She is currently on 3 L nasal cannula, will continue to monitor. -Continue with Decadron, can obtain an ambulatory pulse ox in the morning to assess for oxygen requirements at home -Creatinine has improved today to 2.31 -And she denies any dizziness -ID consult pending 2. DM 2/morbid obesity -She is supposed to be on 74 units of long-acting insulin however this is unconfirmed. Given the fact that she is on steroids, continue with Lantus 30 units twice daily, mealtime insulin at 5 units, and a sliding scale insulin -May need to add mealtimes -Accu-Cheks AC at bedtime -BMI is 44, discussed lifestyle modifications 3. Paroxysmal A. fib/HTN/HLD -Blood pressure is currently stable, does appear that she is on Norvasc and losartan however these have not been confirmed -Want to confirm that she feels these will restart -Continue with Coumadin and monitor INR currently 2.5 DVT: Coumadin Clinical Impression(s) from Imaging Studies Chest X-Ray 07/08/20 17:48 IMPRESSION: Bilateral midlung atelectasis.
[2020-07-11] MEDS: 0.9% Normal Saline 1,000 ML 100 ML IV (08:36)
[2020-07-11] MEDS: Insulin Lispro 100 UNIT/ML INSULN.PEN SC ×4 (08:48→12:43)
[2020-07-11] MEDS: Gabapentin 100 MG Capsule PO ×2 (08:49→12:47)
[2020-07-11] MEDS: dexAMETHasone 2 MG TABLET 6 MG PO (08:49)
[2020-07-11] MEDS: Nystatin Powder 15gm Bottle 1 APPLIC TOPICAL (08:49)
[2020-07-11] MEDS: Menthol/Lanolin/Calamine/Znox 113 GM Tube 1 APPLIC TOPICAL (08:50)
[2020-07-11 09:20] LABS: Vitamin B12 511 pg/mL (211-911)
[2020-07-11 10:40] LABS: Bedside Glucose 188 mg/dL (70-110)
[2020-07-11 11:41] LABS: Bedside Glucose 223 mg/dL (70-110)
--- NOTE | 2020-07-11 11:50 | PCM.DC ---
- Discharge Diagnoses Current Active Problems: Current Active and Chronic Problems (Last Reviewed 07/08/20 @ 23:[address] Akash Jose MD) Near syncope (Acute) Acute kidney injury (Acute) Orthostatic hypotension (Acute) Lactic acidosis (Acute) Secondary pulmonary arterial hypertension (Chronic) Chronic renal insufficiency, stage III (moderate) (Chronic) Venous insufficiency (chronic) (peripheral) (Chronic) Paroxysmal A-fib (Chronic) DIEGO (obstructive sleep apnea) (Chronic) Right-sided congestive heart failure (Chronic) Asthma (Chronic) Chronic kidney disease (CKD) stage G1/A2, glomerular filtration rate (GFR) equal to or greater than 90 mL/min/1.73 square meter and albuminuria creatinine ratio between 30-299 mg/g (Chronic) Morbid obesity (Chronic) Depression (Chronic) Vitamin D deficiency (Chronic) Allergic rhinitis (Chronic) 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) Hypertension (Chronic) Hyperlipidemia (Chronic) You will use the following diet at home:: Calorie/Carbohydrate Controlled (specify 1200, 1400, etc), Cardiac Your food should be the consistency of: Regular Discharge Activity: May Not Drive Weight Bearing Status: Weight bearing as tolerated Call your doctor if you observe: Fever of 101 or Higher, Coldness, Increased Pain, Numbness or Tingling, Inability to have a bowel movement, Shortness of breath, Dizziness, Fainting spells, Swelling in the ankles, Chest pain, Prolonged hiccoughing, Increased palpitations (irregular heartbeat), Calf discomfort, Uncontrolled pain Additional Instructions: Quarantine until 07/22/2020. Allergies/Adverse Reactions: Allergies aspirin Allergy (Unknown, Verified 05/22/18 14:10) Unknown ibuprofen Allergy (Verified 05/22/18 14:10) Unknown sulfamethoxazole [From Septra] Allergy (Verified 05/22/18 14:10) Unknown trimethoprim [From Aprra] Allergy (Verified 05/22/18 14:10) Unknown Medications to take at Discharge Gabapentin [Neurontin] 600 mg PO TIDCM 11/08/14 Sertraline HCl [Zoloft] 50 mg PO DAILY 11/08/14 Simvastatin [Zocor] 20 mg PO QHS 11/08/14 ergocalciferol (vitamin D2) 1,250 mcg (50,000 unit) capsule 50,000 unit PO QMONTH 30 Days #1 01/13/18 Amlodipine [Norvasc] 5 mg PO DAILY 03/31/18 Sodium Chloride [Saline Nasal Mist] 1 spray NASAL BID 03/31/18 Albuterol IH (ProAir) [Proair Hfa] 2 inh INHALATION 4X/DAY #1 inhaler 04/03/18 Acetaminophen [Tylenol] 1,000 mg PO Q8H PRN PRN tab 04/14/18 Iron Polysaccharide Complex [Ferrex 150] 150 mg PO DAILYCM #30 cap 04/14/18 Mineral Oil/Petrolatum,White [Eucerin] 1 applic TOPICAL DAILY jar 04/14/18 Nystatin Powder [Mycostatin Powder] 1 applic TOPICAL TID bottle 04/14/18 insulin glargine 100 unit/mL (3 mL) subcutaneous pen 74 unit SC HS ml 05/22/18 warfarin 2.5 mg tablet 2.5 mg PO DAILY 05/22/18 Guaifenesin [Mucinex] 1,200 mg PO BID #14 tab.er.12h 07/11/20 Linagliptin [Tradjenta] 5 mg PO DAILY 30 Days #30 07/11/20 Losartan Potassium [Cozaar] 100 mg PO DAILY #0 07/11/20 dexAMETHasone [Dexamethasone] 6 mg PO DAILY@0800 #6 tab 07/11/20 The following prescriptions were given: dexAMETHasone [Dexamethasone] 6 mg PO DAILY@0800 #6 tab Transmission Status: Pending to [facility] Guaifenesin [Mucinex] 1,200 mg PO BID #14 tab.er.12h Transmission Status: Pending to [facility] Primary Care Physician: Marshall Baltazar PROFESSOR OF ECONOMICS, PROFESSOR OF ECONOMICS-C [Primary Care Provider] - Please follow up with your Primary Care Physician in: in 2 weeks Test Results: Test results from this visit will be discussed in further detail at your follow-up appointment, if applicable. Please Follow Up With: Carlos Campos MD When: DIEGO, asthma and right-sided heart failure Please Follow Up With: Sara Lind DO When: CKD stage IV
--- NOTE | 2020-07-11 12:11 | DS.PCM_ITS ---
Discharge Date and Diagnosis - Problem List Patient Problems: Active and Suspected Problems (Last Reviewed 07/08/20 @ 23:[address] Akash Jose MD) Near syncope (Acute) Acute kidney injury (Acute) Orthostatic hypotension (Acute) Lactic acidosis (Acute) COVID-19 (Acute) Date of Admission: 07/08/20 Date of Discharge: 07/11/20 - Primary Discharge Diagnosis Acute Problems: Active Problems (Last Reviewed 07/08/20 @ 23:[address] Akash Jose MD) Near syncope (Acute) Acute kidney injury (Acute) Orthostatic hypotension (Acute) Lactic acidosis (Acute) - Secondary Discharge Diagnosis Chronic Problems: Chronic Problems (Last Reviewed 07/08/20 @ 23:[address] Akash Jose MD) Secondary pulmonary arterial hypertension (Chronic) Chronic renal insufficiency, stage III (moderate) (Chronic) Venous insufficiency (chronic) (peripheral) (Chronic) Paroxysmal A-fib (Chronic) DIEGO (obstructive sleep apnea) (Chronic) Right-sided congestive heart failure (Chronic) Asthma (Chronic) Chronic kidney disease (CKD) stage G1/A2, glomerular filtration rate (GFR) equal to or greater than 90 mL/min/1.73 square meter and albuminuria creatinine ratio between 30-299 mg/g (Chronic) Morbid obesity (Chronic) Depression (Chronic) Vitamin D deficiency (Chronic) Allergic rhinitis (Chronic) 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 She was having difficulty getting up and her knees gave out therefore fall. Denies chest pain or shortness of breath. P atient had some nausea and vomiting but has resolved. No loss of taste or smell. Patient was tested positive for COVID-19. 1. Acute hypoxic respiratory failure secondary to COVID-19 pneumonia/near syncope with orthostatic hypotension and fall: Patient was initially on 3 L of oxygen improved to 1 to 2 L of oxygen. Patient was treated with Decadron and discharged on 6 more days of Decadron. Patient seen by Dr. Contreras and agree with discharge. Patient is ambulatory in home and in the community and requires home oxygen with portability. 2. Acute kidney injury on CKD stage IV: She follows roll builder Dr. Lind Patient creatinine improved from 2.54 to 2.0 and her baseline runs around 1.9. Magnesium 2.1. Phosphorus 2.8. Advised to avoid nephrotoxic medications including NSAIDs. Hold losartan and Tradjenta for 5 more days. 3. DM 2/morbid obesity: Patient blood sugar was elevated. On insulin glargine 7040 mg daily. Home dose continue right patient is on Decadron too. Lifestyle modification follow with PCP. 3. Comorbidities include paroxysmal A. fib/HTN/HLD: Blood pressure is controlled. On Norvasc. INR is therapeutic. On Coumadin. DVT: Coumadin Discharge medication reconciliation done. Discharge follow-up instructions completed. Discharge process discussed with the patient and all questions were answered to patient's satisfaction. Total time spent, exact 35 minutes on discharge meds reconciliation, examination, coordination of care with nurses and ancillary staff, review of imaging and blood test and discussion with the patient on follow-up instructions Patient Problems: Active and Suspected Problems (Last Reviewed 07/08/20 @ 23:[address] Akash Jose MD) Near syncope (Acute) Acute kidney injury (Acute) Orthostatic hypotension (Acute) Lactic acidosis (Acute) COVID-19 (Acute) Objective: Seen and examined No fever or chills. Blood pressure is controlled. On 1 to 2 L of oxygen Mild occasional cough. Patient was admitted with headache and syncope. Physical exam General: Alert, Oriented x3, Cooperative HEENT: Atraumatic, PERRLA, EOMI, Normocephalic Oral: No Gingival or Mucosal Lesions/ Ulcerations Neck: Supple, No JVD, Negative Carotid Bruits Lungs: Air entry diminished in bilateral lung bases. No crepitation/rhonchi Cardiovascular: Regular rate, Regular Rhythm, Normal S1, Normal S2, No murmurs Abdomen: Bowel Sounds Present, Soft, Non Tender, Non-Distended : No renal angle tenderness. No suprapubic tenderness. Extremities: No edema, Capillary Refill Less than 3 Seconds Skin: No rashes, No breakdown Musculoskeletal: No Tenderness to Palpation of Joints or Extremities Neurological: Cranial nerves II-XII grossly intact, Deep Tendon Reflexes 2+/4 and Symmetrical, Neuro grossly intact Psych/Mental Status: Normal Affect, Appropriate. - Physical Exam Vitals/I&O's: Vital Signs Temp Pulse Resp BP Pulse Ox 98.0 F 63 18 144/130 H 94 07/11/20 08:41 07/11/20 08:41 07/11/20 08:41 07/11/20 08:41 07/11/20 08:41 Oxygen Flow Rate (L/min) 2 Oxygen Delivery Method Nasal Cannula Weight: 285 lb 15.033 oz Body Mass Index (BMI) 44.8 Orthostatic Vital Signs Start: 07/09/20 06:16 Freq: q24h Status: Active Protocol: Activity Type Activity Date Activity User E-Sign Co-Sign Detail Recorded Client Recorded Date Recorded By Document 07/11/20 04:12 [facility] [id number] 07/11/20 04:22 [facility] 07/11/20 04:12 Orthostatic Vitals Standing -Blood Pressure (90/60-120/80) 169/91 H -Extremity Use Left Arm -Pulse Rate (60-100) 86 Sitting -Blood Pressure (90/60-120/80) 178/87 H -Extremity Use Left Arm -Pulse Rate (60-100) 64 Lying -Blood Pressure (90/60-120/80) 158/84 H -Extremity Use Left Arm -Pulse Rate (60-100) 68 Intake and Output for Last 24 Hours 07/09/20 07/10/20 07/11/20 23:59 23:59 23:59 Intake Total 2978.34 / 2978.34 3535.00 / 4035.00 1860 / 1860 Balance 2978.34 / 2978.34 3535.00 / 4035.00 1859 / 1860 Microbiology Past 72 Hours 07/08/20 19:25 Urine, Catheterized Urine Culture - Final Culture exhibits no growth. Laboratory Results 07/08/20 17:30: Vitamin B12 511 07/10/20 11:18: POC Glucose 346 H 07/10/20 12:35: Phosphorus 2.8, Magnesium 2.1 07/10/20 16:18: POC Glucose 327 H 07/10/20 20:21: POC Glucose 279 H 07/11/20 05:56: PT 24.7 H, INR 2.3 07/11/20 05:56: Sodium 141, Potassium 4.9, Chloride 114 H, Carbon Dioxide 19.0 L , Anion Gap 8, BUN 46 H, Creatinine 2.05 H, Estim Creat Clear Calc 25.90, Est GFR (MDRD) Af Amer 31 L, Est GFR (MDRD) Non-Af 26 L, BUN/Creatinine Ratio 22.4 H , Glucose 203 H, Calcium 7.5 L 07/11/20 08:47: POC Glucose 188 H 07/11/20 11:20: POC Glucose 223 H Current Medications Acetaminophen (Acetaminophen 325 Mg Tablet) 650 mg PO Q6H PRN PRN PRN Reason: Pain Score 1-10/Temp > 100.7 F Last Admin: 07/10/20 23:02 Dose: 650 mg Documented by: Calamine/Phenol (Menthol/Lanolin/Calamine/Znox 113 Gm Tube) 1 applic TOPICAL BID [facility]; Protocol Last Admin: 07/11/20 08:50 Dose: 1 applicatio Documented by: Dexamethasone (Dexamethasone 2 Mg Tablet) 6 mg PO DAILY@0800 [facility] Last Admin: 07/11/20 08:49 Dose: 6 mg Documented by: Dextrose (Dextrose 50%-Water 25 Gm/50 Ml Disp.Syrin) 0 gm IV X1 PRN; Protocol PRN Reason: Hypoglycemia Gabapentin (Gabapentin 100 Mg Capsule) 100 mg PO TID@0800,1200,2200 [facility] Last Admin: 07/11/20 08:49 Dose: 100 mg Documented by: Glucagon (Glucagon 1 Mg/Ml Syringe) 1 mg IM .X1 PRN PRN Reason: Hypoglycemia Sodium Chloride () 1,000 mls @ 100 mls/hr IV .Q10H [facility] Last Admin: 07/11/20 08:36 Dose: 100 mls/hr Documented by: Insulin Glargine (Insulin Glargine 100 Units/Ml Pen) 30 units SC BID [facility] Last Admin: 07/11/20 08:49 Dose: 30 units Documented by: Insulin Human Lispro (Insulin Lispro 100 Unit/Ml Insuln.Pen) 0 unit SC 4X/DAYCM [facility]; Protocol Last Admin: 07/11/20 08:48 Dose: 1 u Documented by: Insulin Human Lispro (Insulin Lispro 100 Unit/Ml Insuln.Pen) 5 unit SC TIDAC [facility] Last Admin: 07/11/20 08:48 Dose: 5 units Documented by: Melatonin (Melatonin 3 Mg Tablet) 3 mg PO QHS PRN PRN PRN Reason: INSOMNIA Last Admin: 07/10/20 23:03 Dose: 3 mg Documented by: Nystatin (Nystatin Powder 15gm Bottle) 1 applic TOPICAL BID [facility]; Protocol Last Admin: 07/11/20 08:49 Dose: 1 applicatio Documented by: Ondansetron HCl (Ondansetron 4 Mg/2 Ml Vial) 4 mg IV Q8H PRN PRN PRN Reason: NAUSEA/VOMITING Sodium Chloride (0.9% Saline Lock 10 Ml Syringe) 10 - 40 ml IV UD PRN PRN Reason: SALINE FLUSH Warfarin Sodium (Warfarin 2.5 Mg Tablet) 2.5 mg PO DAILY@1700 [facility] Last Admin: 07/10/20 16:21 Dose: 2.5 mg Documented by: Discharge Activity: May Not Drive Weight Bearing Status: Weight bearing as tolerated Call your doctor if you observe: Fever of 101 or Higher, Coldness, Increased Pain, Numbness or Tingling, Inability to have a bowel movement, Shortness of breath, Dizziness, Fainting spells, Swelling in the ankles, Chest pain, Prolonged hiccoughing, Increased palpitations (irregular heartbeat), Calf discomfort, Uncontrolled pain Home Medications: Medications to take at Discharge Gabapentin [Neurontin] 600 mg PO TIDCM 11/08/14 Sertraline HCl [Zoloft] 50 mg PO DAILY 11/08/14 Simvastatin [Zocor] 20 mg PO QHS 11/08/14 ergocalciferol (vitamin D2) 1,250 mcg (50,000 unit) capsule 50,000 unit PO QMONTH 30 Days #1 01/13/18 Amlodipine [Norvasc] 5 mg PO DAILY 03/31/18 Sodium Chloride [Saline Nasal Mist] 1 spray NASAL BID 03/31/18 Albuterol IH (ProAir) [Proair Hfa] 2 inh INHALATION 4X/DAY #1 inhaler 04/03/18 Acetaminophen [Tylenol] 1,000 mg PO Q8H PRN PRN tab 04/14/18 Iron Polysaccharide Complex [Ferrex 150] 150 mg PO DAILYCM #30 cap 04/14/18 Mineral Oil/Petrolatum,White [Eucerin] 1 applic TOPICAL DAILY jar 04/14/18 Nystatin Powder [Mycostatin Powder] 1 applic TOPICAL TID bottle 04/14/18 insulin glargine 100 unit/mL (3 mL) subcutaneous pen 74 unit SC HS ml 05/22/18 warfarin 2.5 mg tablet 2.5 mg PO DAILY 05/22/18 Guaifenesin [Mucinex] 1,200 mg PO BID #14 tab.er.12h 07/11/20 Linagliptin [Tradjenta] 5 mg PO DAILY 30 Days #30 07/11/20 Losartan Potassium [Cozaar] 100 mg PO DAILY #0 07/11/20 dexAMETHasone [Dexamethasone] 6 mg PO DAILY@0800 #6 tab 07/11/20 Following Prescriptions Were Given to Patient: dexAMETHasone [Dexamethasone] 6 mg PO DAILY@0800 #6 tab Transmission Status: Received by [facility] Guaifenesin [Mucinex] 1,200 mg PO BID #14 tab.er.12h Transmission Status: Received by [facility] Primary Care Physician: Marshall Baltazar SALES ASSOCIATE, SALES ASSOCIATE-C [Primary Care Provider] - Please follow up with your Primary Care Physician in: in 2 weeks Please Follow Up With: Carlos Campos MD When: DIEGO, asthma and right-sided heart failure Please Follow Up With: Sara Lind DO When: CKD stage IV Medical Necessity - Tobacco Use Smoking Status: Never smoker Meaningful Use Info Meaningful Use Diagnoses (Choose all that apply): None applicable Inpatient E&M: [id number] [facility]
--- NOTE | 2020-07-11 13:06 | PCM.HP.ID ---
Problem List (1) COVID-19 Status: Acute Reason for Consult: covid Consulted by: Dr. Wheeler History of Present Illness: The patient is a 69 year old F who presented with sx starting 07/01 of mild headache, fatigue, cough, mild aches, and prominent diarrhea. Had a syncopal episode, came to ED, febrile, hypoxic, covid (+). Given ceftriaxone x1, admitted on O2 and dex. Feeling better today. Full ROS performed and neg except as noted above. - Medical History Past Medical History (Chronic Problems): Chronic Problems (Last Reviewed 07/08/20 @ 23:[address] Akash Jose MD) Secondary pulmonary arterial hypertension (Chronic) Chronic renal insufficiency, stage III (moderate) (Chronic) Venous insufficiency (chronic) (peripheral) (Chronic) Paroxysmal A-fib (Chronic) DIEGO (obstructive sleep apnea) (Chronic) Right-sided congestive heart failure (Chronic) Asthma (Chronic) Chronic kidney disease (CKD) stage G1/A2, glomerular filtration rate (GFR) equal to or greater than 90 mL/min/1.73 square meter and albuminuria creatinine ratio between 30-299 mg/g (Chronic) Morbid obesity (Chronic) Depression (Chronic) Vitamin D deficiency (Chronic) Allergic rhinitis (Chronic) 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) Hypertension (Chronic) Hyperlipidemia (Chronic) Allergies/Adverse Reactions: Allergies aspirin Allergy (Unknown, Verified 05/22/18 14:10) Unknown ibuprofen Allergy (Verified 05/22/18 14:10) Unknown sulfamethoxazole [From Septra] Allergy (Verified 05/22/18 14:10) Unknown trimethoprim [From Septra] Allergy (Verified 05/22/18 14:10) Unknown Home Medications: Ambulatory Orders Medication Instructions Recorded Gabapentin [Neurontin] 600 mg PO TIDCM 11/08/14 Sertraline HCl [Zoloft] 50 mg PO DAILY 11/08/14 Simvastatin [Zocor] 20 mg PO QHS 11/08/14 ergocalciferol (vitamin D2) 1,250 50,000 unit PO QMONTH 30 Days #1 01/13/18 mcg (50,000 unit) capsule Amlodipine [Norvasc] 5 mg PO DAILY 03/31/18 Sodium Chloride [Saline Nasal Mist] 1 spray NASAL BID 03/31/18 Albuterol IH (ProAir) [Proair Hfa] 2 inh INHALATION 4X/DAY #1 inhaler 04/03/18 Acetaminophen [Tylenol] 1,000 mg PO Q8H PRN PRN tab 04/14/18 Iron Polysaccharide Complex 150 mg PO DAILYCM #30 cap 04/14/18 [Ferrex 150] Mineral Oil/Petrolatum,White 1 applic TOPICAL DAILY jar 04/14/18 [Eucerin] Nystatin Powder [Mycostatin Powder] 1 applic TOPICAL TID bottle 04/14/18 insulin glargine 100 unit/mL (3 74 unit SC HS ml 05/22/18 mL) subcutaneous pen warfarin 2.5 mg tablet 2.5 mg PO DAILY 05/22/18 Guaifenesin [Mucinex] 1,200 mg PO BID #14 tab.er.12h 07/11/20 Linagliptin [Tradjenta] 5 mg PO DAILY 30 Days #30 07/11/20 Losartan Potassium [Cozaar] 100 mg PO DAILY #0 07/11/20 dexAMETHasone [Dexamethasone] 6 mg PO DAILY@0800 #6 tab 07/11/20 - Social History SMOKING STATUS:: Never smoker Vital Signs Temp Pulse Resp BP Pulse Ox 98.0 F 63 18 144/130 H 86 07/11/20 08:41 07/11/20 08:41 07/11/20 08:41 07/11/20 08:41 07/11/20 12:48 Oxygen Flow Rate (L/min) [ 2 AMBULATION with Oxygen] Oxygen Flow Rate (L/min) 2 Oxygen Delivery Method Nasal Cannula Weight: 129.7 kg Body Mass Index (BMI) 44.8 Orthostatic Vital Signs Start: 07/09/20 06:16 Freq: q24h Status: Active Protocol: Activity Type Activity Date Activity User E-Sign Co-Sign Detail Recorded Client Recorded Date Recorded By Document 07/11/20 04:12 [facility] [id number] 07/11/20 04:22 [facility] 07/11/20 04:12 Orthostatic Vitals Standing -Blood Pressure (90/60-120/80) 169/91 H -Extremity Use Left Arm -Pulse Rate (60-100) 86 Sitting -Blood Pressure (90/60-120/80) 178/87 H -Extremity Use Left Arm -Pulse Rate (60-100) 64 Lying -Blood Pressure (90/60-120/80) 158/84 H -Extremity Use Left Arm -Pulse Rate (60-100) 68 Microbiology Past 72 Hours 07/08/20 19:25 Urine Culture - Final Urine, Catheterized Culture exhibits no growth. Laboratory Tests Past 24 Hrs 07/08/20 07/10/20 07/11/20 17:30 12:35 05:56 PT 24.7 H INR 2.3 Sodium Potassium Chloride Carbon Dioxide Anion Gap BUN Creatinine Estim Creat Clear Calc Est GFR (MDRD) Af Amer Est GFR (MDRD) Non-Af BUN/Creatinine Ratio Glucose Calcium Phosphorus 2.8 Magnesium 2.1 Vitamin B12 511 07/11/20 05:56 PT INR Sodium 141 Potassium 4.9 Chloride 114 H Carbon Dioxide 19.0 L Anion Gap 8 BUN 46 H Creatinine 2.05 H Estim Creat Clear Calc 25.90 Est GFR (MDRD) Af Amer 31 L Est GFR (MDRD) Non-Af 26 L BUN/Creatinine Ratio 22.4 H Glucose 203 H Calcium 7.5 L Phosphorus Magnesium Vitamin B12 - Other Studies Radiology: [] reviewed Other Studies: [] Route of nutrition/ use of supplements: [] Nutritional Intake: [] IV Site: [] Wayne Catheter: [] - Physical Exam General: Alert, Oriented x3, Cooperative HEENT: Atraumatic, PERRLA, EOMI Neck: Supple, No Nodes Lungs: Clear to auscultation, Diminished Cardiovascular: Regular rate, Regular Rhythm Abdomen: Soft, Non Tender, Non-Distended Extremities: No edema Skin: No rashes IV Site: Peripheral, without redness Musculoskeletal: No Tenderness to Palpation of Joints or Extremities Neurological: Cranial nerves II-XII grossly intact - Assessment/Plan Antibiotics: [] Assessment/Plan: [] Active and Suspected Problems (Last Reviewed 07/08/20 @ 23:[address] Akash Jose MD) Near syncope (Acute) Acute kidney injury (Acute) Orthostatic hypotension (Acute) Lactic acidosis (Acute) covid with hypoxia - sx started 07/01. Feeling better. Discussed role of remdesivir. We agree with plan to just discharge home today to complete dex and isolate. Will follow, thank you, d/w Dr. Wheeler
--- NOTE | 2020-07-11 13:32 | CASEMGMT ---
RN CM Assessment Note Introduced role of CM to patient via phone to room. Demographics, PCP verified. Patient states she lives independently at home with significant other. No concerns re: dc. Discussed oxygen needs for home and patient is agreeable to [facility]. Patient states she has supplies @ home and family/friends to bring groceries etc if needed. Her significant other and child have not tested positive so discussed In home quarantine. Diagnosis: COVID-19 PCP: YESSI Baltazar Insurance: [facility] Preferred Pharmacy: [facility] Prescription Benefit: yes LNOK: Significant Other, Paras Robles Living Arrangements: Lives independently at home. Tranportation: drives, family can assist if needed. DME: none. Patient requested [facility] for oxygen Patient DC Goals: DC Plan: Home with oxygen through [facility]. Understands need for quarantine and oxygen use. No needs identified. CM available for discharge planning coordination. Contact CM for any concerns/needs that may arise. Jabari LI RN ACM
--- NOTE | 2020-07-11 13:47 | CASEMGMT ---
GORGE CM Note: Script and clinicals faxed to [facility]. Jabari RUIZN RN ACM
[2020-07-12 07:31] LABS: Bedside Glucose 335 mg/dL (70-110)
== END 2020-07-11 16:18 | disposition home or self-care (01) | DRG 177 ==
LOC: ED 21:09 → MS2 07-09 07:07
PROVIDERS: Family Medicine; Admitting Provider Hospitalist; Emergency Provider Emergency Medicine; PCP Nurse Practitioner Family; Visit Provider Internal Medicine
DX: U07.1 COVID-19 (principal); J12.89 Other viral pneumonia; J96.01 Acute respiratory failure with hypoxia; E87.2 Acidosis; N17.9 Acute kidney failure, unspecified; I13.0 Hypertensive heart and chronic kidney disease with heart failure and stage 1 through stage 4 chronic kidney disease, or unspecified chronic kidney disease; I50.812 Chronic right heart failure; N18.4 Chronic kidney disease, stage 4 (severe); Z68.41 Body mass index [BMI] 40.0-44.9, adult; E11.22 Type 2 diabetes mellitus with diabetic chronic kidney disease; I95.1 Orthostatic hypotension; I48.0 Paroxysmal atrial fibrillation; I27.21 Secondary pulmonary arterial hypertension; E11.65 Type 2 diabetes mellitus with hyperglycemia; E11.40 Type 2 diabetes mellitus with diabetic neuropathy, unspecified; E78.5 Hyperlipidemia, unspecified; J45.909 Unspecified asthma, uncomplicated; G47.33 Obstructive sleep apnea (adult) (pediatric); F32.9 Major depressive disorder, single episode, unspecified; E66.01 Morbid (severe) obesity due to excess calories; Z79.4 Long term (current) use of insulin; Z79.01 Long term (current) use of anticoagulants; Z79.899 Other long term (current) drug therapy; Z96.651 Presence of right artificial knee joint
CPT/HCPCS: 36415; 71045; 80048; 80053; 81001; 82306; 82607; 82962; 83605; 83735; 84100; 84145; 84484; 85025; 85610; 87086; 87635; 93005; 97162; 97166; 99285; J7030; A4216; U0002

== ENCOUNTER → 2021-01-10 11:45 | Outpatient (CLI) | payer MEDICARE, MEDICAID, SELFPAY ==
[2020-07-08 23:58] VITALS: BMI 44.8
[2021-01-10 12:27] LABS: Hemoglobin 12.6 g/dL (12.0-15.0); Mean Corpuscular Hgb 30.1 pg (27.0-32.0); Mean Corpuscular Volume 100.2 fL (81-99); Mean Platelet Vol. 11.1 fl (6.2-12.0); Platelet Count 170 K/mm3 (150-450); RBC Distribution Width CV 13.6 % (11.6-14.6); RBC Distribution Width SD 50.4 fl (35.1-43.9); Red Blood Count 4.19 M/mm3 (4.2-5.4)
[2021-01-10 13:11] LABS: Vitamin D,25 Hydroxy 47.6 ng/mL
[2021-01-10 13:13] LABS: Hemoglobin A1c 7.1 % (3.8-5.6)
[2021-01-10 13:18] LABS: ALB/GLOB Ratio 0.7 RATIO (0.9-2.4); AST(SGOT) 8 U/L (15-37); Alanine Aminotransfer ALT/SGPT 12 U/L (13-56); Albumin, Serum 3.2 g/dL (3.2-5.0); Alkaline Phosphatase 70 U/L (45-117); Anion Gap 4 (5-15); BUN 44 mg/dL (7-18); Calcium,Total 8.8 mg/dL (8.5-10.1); Chloride 108 mmol/L (98-107); Cholesterol 111 mg/dL (200); Creatinine, Serum 2.45 mg/dL (0.55-1.02); EST Glomerular Filtration Rate 21 mL/min (>60); Est Glom Filt Rate - Afr Amer 25 mL/min (>60); Globulin 4.9 g/dL (2.2-4.2); Glucose 116 mg/dL (74-106); High Density Lipoprotein 40 mg/dL; Potassium 4.8 mmol/L (3.5-5.1); Protein, Total 8.1 g/dL (6.4-8.2); Sodium Level 139 mmol/L (136-145); Triglycerides 123 mg/dL; Very Low Density Lipoprotein 25 mg/dL (5-40)
== END ==
PROVIDERS: PCP Nurse Practitioner Family; Referring Provider Nurse Practitioner Family; Visit Provider Nurse Practitioner Family
DX: E11.9 Type 2 diabetes mellitus without complications (principal); I10 Essential (primary) hypertension; E78.5 Hyperlipidemia, unspecified; E55.9 Vitamin D deficiency, unspecified
CPT/HCPCS: 36415; 80053; 80061; 82306; 83036; 85027

== ENCOUNTER → 2021-02-07 08:42 | Outpatient (CLI) | payer MEDICARE, MEDICAID, SELFPAY ==
[2020-07-08 23:58] VITALS: BMI 44.8
--- NOTE | 2021-02-07 08:46 | RDU_ITS ---
Reason For Study: CKD stage 4 Right Renal Artery Left Renal Artery Right renal artery ostium Left renal artery ostium 223.3/27.1 119.9/22.8 RSV/EDV. PSV/EDV. Right renal artery proximal Left renal artery proximal PSV/EDV 125.4/17.2 PSV/EDV. 215.4/38.8 . Right renal artery mid 146.8/16.5 Left renal artery mid 139.7/33 PSV/EDV. PSV/EDV . Right renal artery distal Left renal artery distal 123.4/24.6 109.3/23.8 PSV/EDV. PSV/EDV. Right Renal Parenchyma Left Renal Parenchyma Upper Pole Medula 31.2/7.5 PSV/EDV. Left upper pole medulla 37.6/11.1 Right upper pole medulla EDR 0.24 . PSV/EDV . Right upper pole medulla R.I. Left upper pole medulla EDR 0.30 . 0.76 . Left upper pole medulla R.I. 0.70 . Upper [place] Cortx 19.9/5.1 PSV/EDV. UP Cortex 25.4/7.3 PSV/EDV. Right upper pole cortex EDR 0.25 . Left upper pole cortex EDR 0.29 . Right upper pole cortex R.I. 0.75 . Left upper pole cortex R.I. 0.71 . Right lower Pole medulla 21/6.2 Left lower Pole medulla 27.6/6.2 PSV/EDV . PSV/EDV . Right lower pole medulla EDR 0.29 . Left lower pole medulla EDR 0.22 . Right lower pole medulla R.I. Left lower pole medulla R.I. 0.78 . 0.71 . Lower Pole Cortx 23.7/7.3 PSV/EDV. Lower Pole Cortex 16.6/6.7 PSV/EDV. Left lower pole cortex EDR 0.31 . Right lower pole cortex EDR 0.40 . Left lower pole cortex R.I. 0.69 . Right lower pole cortex R.I. 0.60 . Left Renal Hilar Right Renal Hilar LT Hilar avg 41.9/10.4 PSV/EDV . Right Hilar avg 43/10.6 PSV/EDV. Left hilar acceleration time 30 Right hilar acceleration time 20 m/sec. m/sec. Left Renal Dimensions Right Renal Dimensions Left kidney size 10.56 cm . Right kidney size 11.19 cm . Left cortical dimension 1.23 cm . Right cortical dimension 1.09 cm . Aorta Proximal abdominal aorta 1.59 x 1.59 cm . Proximal abdominal aorta peak systolic velocity is 108 cm/sec . Distal abdominal aorta 1.34 x 1.37 cm . Distal abdominal aorta peak systolic velocity is 106.2 cm/sec . VL/Renal Artery Duplex Ultrasound Interpretation Summary Right renal artery with no significant occlusive disease. Left renal artery kimberley ears to be greater than 60% stenosis at the origin. Ordering Physician: Marshall Baltazar Referring Physician: Marshall Baltazar Performed By: Monika Ty RVT and Student
== END ==
PROVIDERS: PCP Nurse Practitioner Family; Referring Provider Nurse Practitioner Family; Visit Provider Nurse Practitioner Family
DX: N18.4 Chronic kidney disease, stage 4 (severe) (principal)
CPT/HCPCS: 93975

== ENCOUNTER 2021-03-18 03:20 | Emergency (ER) | payer MEDICARE, MEDICAID, SELFPAY ==
[2020-07-08 23:58] VITALS: BMI 44.8
[2021-03-18 03:25] VITALS: BP 159/63; PULSE 82; RESP 24; TEMP 37; O2SAT 82; BMI 50.5
--- NOTE | 2021-03-18 03:34 | EKG12_ITS ---
Test Reason : WEAKNESS Blood Pressure : / mmHG Vent. Rate : 077 BPM Atrial Rate : 077 BPM P-R Int : 230 ms QRS Dur : 094 ms QT Int : 368 ms P-R-T Axes : 057 035 059 degrees QTc Int : 416 ms Sinus rhythm with 1st degree A-V block Cannot rule out Anterior infarct , age undetermined Abnormal ECG Confirmed by ROSEANN OSUNA, NOEMÍ ([id number]), editorial project manager JENNIFER TOMLIN ([id number]) on 03/21/2021 10:27:18 AM Referred By: NORRIS Confirmed By:NOEMÍ WHITFIELD MD
--- NOTE | 2021-03-18 03:35 | ED.VIS.DYS ---
HPI History of Present Illness Chief Complaint: Weakness Narrative Narrative: 70-year-old female presenting with generalized weakness. Patient states he usually ambulates with a walker and wears 4 L of oxygen via nasal cannula chronically. Today she felt a little bit weaker than usual. Patient states that when she woke up she was feeling weak and had to have assistance by her and her family. She was able to use her walker and get around the house. She states that over the course of the day she has had high and low blood sugars. She states her blood sugar was over 400 and then she states that she got it down to about the 80s. Patient states that she was using her wheeled walker later in the day and was trying to get into the living room. She states there is an area that not wide enough for her walker and she was trying to get to the couch when she lost her balance and fell down. She was unable to get up which is her baseline. She called EMS for assistance. She denies head injury or LOC. [facility] Medical History (Updated 03/18/21 @ 03:34 by Chantelle Mendez) Acute respiratory failure with hypoxia Allergic rhinitis Arthritis Asthma Cellulitis of right lower extremity Chronic kidney disease (CKD) stage G1/A2, glomerular filtration rate (GFR) equal to or greater than 90 mL/min/1.73 square meter and albuminuria creatinine ratio between 30-299 mg/g Chronic renal insufficiency, stage III (moderate) COPD (chronic obstructive pulmonary disease) Depression Diabetes Diabetic neuropathy associated with type 2 diabetes mellitus Hay fever Hyperlipidemia Hypertension Hypertension Knee pain Morbid obesity DIEGO (obstructive sleep apnea) Paroxysmal A-fib Right leg pain Right-sided congestive heart failure Secondary pulmonary arterial hypertension Venous insufficiency (chronic) (peripheral) Vitamin D deficiency Home Medications gabapentin 600 mg PO TIDCM 11/08/14 [History Last Taken 07/07/20] sertraline 50 mg PO DAILY 11/08/14 [History Last Taken 07/07/20] simvastatin 20 mg PO QHS 11/08/14 [History Last Taken 07/07/20] ergocalciferol (vitamin D2) 1,250 mcg (50,000 unit) capsule 50,000 unit PO QMONTH 30 Days #1 01/13/18 [History Last Taken 06/26/20] amlodipine 5 mg PO DAILY 03/31/18 [History Last Taken 07/07/20] Mineral Oil/Petrolatum,White [Eucerin] 1 applic TOPICAL DAILY jar 04/14/18 [Rx Last Taken Unknown] acetaminophen 1,000 mg PO Q8H PRN PRN tab 04/14/18 [Rx Last Taken 07/08/20] insulin glargine 100 unit/mL (3 mL) subcutaneous pen 74 unit SC HS ml 05/22/18 [History Last Taken 07/07/20] warfarin 2.5 mg tablet 2.5 mg PO DAILY 05/22/18 [History Last Taken 07/07/20] dexamethasone 6 mg PO DAILY@0800 #6 tab 07/11/20 [Rx Last Taken Unknown] guaifenesin 1,200 mg PO BID #14 tab.er.12h 07/11/20 [Rx Last Taken Unknown] linagliptin 5 mg PO DAILY 30 Days #30 07/11/20 [Rx Last Taken 07/07/20] losartan 100 mg PO DAILY #0 07/11/20 [Rx Last Taken 07/07/20] albuterol sulfate 2 inh INHALATION 4X/DAY PRN PRN 03/18/21 [History Last Taken Unknown] Allergy/AdvReac Type Severity Reaction Status Date / Time aspirin Allergy Unknown Unknown Verified 03/18/21 03:30 ibuprofen Allergy Unknown Verified 03/18/21 03:30 sulfamethoxazole Allergy Unknown Verified 03/18/21 03:30 [From ] trimethoprim [From ] Allergy Unknown Verified 03/18/21 03:30 Family History Mother CAD (coronary artery disease) Hypertension Father CAD (coronary artery disease) Hypertension Other Diabetes Heart disease Surgical History History of knee replacement procedure of right knee Hx of section Social History (Updated 05/23/18 @ 15:02 by Marion Guzmán HVAC PROJECT ENGINEER, HVAC PROJECT ENGINEER-C) Smoking Status: Never smoker ROS ROS ED Constitutional Constitutional ED: Reports other Details: Generalized weakness ; Denies chills, fever(s) or sweats Eyes Eyes: Denies blurry vision or change in vision ENT ENT ED: Denies ear pain or sore throat Cardiovascular Cardiovascular: Denies chest pain, palpitations or racing heartbeat Respiratory/Chest Respiratory/Chest: Reports dyspnea and dyspnea on exertion; Denies cough or sputum Gastrointestinal Gastrointestinal: Denies abdominal pain, constipation, diarrhea, nausea or vomiting Genitourinary Genitourinary ED: Denies dysuria, hematuria or urinary frequency Musculoskeletal Musculoskeletal: Denies arthralgias, myalgias or neck pain Integumentary Denies abscess, Abrasions or rash Neurologic Neurologic: Denies headache(s), paresthesias or weakness Psychiatric Psychiatric: Denies anxiety, depression, suicidal ideation or suicidal thoughts Endocrine Endocrinology: Denies polydipsia or polyuria EXAM Physical Exam Const Vital Signs: 03/18/21 03:25 03/18/21 03:38 03/18/21 03:51 Temperature 98.6 F Temperature Source Temporal Pulse Rate 82 Respiratory Rate 24 H Respiratory Effort Labored Respiratory Pattern Tachypnea Blood Pressure 159/63 H Blood Pressure Mean 95 Pulse Ox 82 92 Oxygen Delivery Method Room Air Nasal Cannula Oxygen Flow Rate (L/min) 4 03/18/21 05:39 Temperature Temperature Source Pulse Rate 67 Respiratory Rate 23 H Respiratory Effort Respiratory Pattern Blood Pressure 165/64 H Blood Pressure Mean 97 Pulse Ox 92 Oxygen Delivery Method Nasal Cannula Oxygen Flow Rate (L/min) 4 Positive obese General Appearance ED: NAD; Negative for pallor Nutritional Appearance: obese HEENT Reports normocephalic, head/scalp atraumatic and moist mucous membranes Eyes PERRL and EOMs intact bilaterally Neck no lymphadenopathy and supple Chest Wall inspection of chest normal and palpation of chest normal Resp clear to auscultation bilaterally Resp Narrative: Slightly tachypneic Auscultation: Negative for rales, rhonchi or wheezes Cardio regular rate and regular rhythm GI normal to inspection, nondistended, normoactive bowel sounds and non-distended Auscultation: normoactive bowel sounds Palpation: soft Narrative: Deferred Back/Spine no CVA tenderness General Back: Negative for CVA tenderness Cervical Spine: Negative for cervical spine tenderness Extremity normal to inspection General Extremety ED: Yes edema and tenderness General Extremity: edema Neuro oriented x3 and CN's II-XII intact bilaterally Sensorium / Orientation: alert Motor Exam: strength 5/5 throughout Psych mental status grossly normal Attitude: No agitated Skin no rashes or lesions noted and no wounds General Skin Exam: Negative for jaundice or pallor MDM MDM MDM Narrative Medical decision making narrative: Patient presenting with weakness and tachypnea. She states has been having to wear her oxygen more. She does not wear 4 L all the time on a baseline basis but states that she has had to do this. This morning she woke up feeling weak but was able to overcome this with help from her family. She was ambulatory throughout the day. She is attempted to walk a few steps to the couch without her walker because there was no room for her walker in the living room and fell. She did not hit her head or have LOC. She has no pain from the fall. Patient's CBC shows a white blood cell count of 7.6, hemoglobin 11.1, hematocrit 37.9. INR is therapeutic at 2.75 low suspicion for PE. Creatinine is near baseline. Potassium is slightly elevated at 5.4 without EKG changes. EKG shows a sinus rhythm at 77 bpm with first-degree AV block on my interpretation. There are no ST elevations or depressions. Chest x-ray on my interpretation shows no acute cardiopulmonary process and the radiologist does agree. When I went back to reevaluate the patient she was noted to be 83% on her 4 L which is her baseline. After awaking her she bumped up to 90% and later up to 94%. She does have a history of sleep apnea and states that she did not like the CPAP machine and therefore she was told just to wear 4 L of oxygen at night which does not appear to be an. After discussing it with the hospitalist for admission he did ambulate her on 6 L and she maintained sats of 89 to 93%. Patient is offered admission and possibly senior living for rehabilitation but she states she wants to go home. I discussed this with Dr. Campos who is the last grinder brake lining she has seen and he was amenable to following up with her on an outpatient basis and was amenable to her wearing 6 L of oxygen. Patient is counseled on this and she is given return precautions. Impression: 1. Dyspnea 2. History of obstructive sleep apnea 3. Hypoxia 4. Generalized weakness Lab Data Labs: Laboratory Results - last 24 hr 03/18/21 03/18/21 03/18/21 03:46 03:46 03:46 WBC 7.6 RBC 3.71 L Hgb 11.1 L Hct 37.9 MCV 102.2 H MCH 29.9 MCHC 29.3 L RDW Std Deviation 51.2 H RDW Coeff of Angelika 13.7 Plt Count 148 L MPV 10.9 Immature Gran % (Auto) 0.400 Neut % (Auto) 71.0 H Lymph % (Auto) 19.9 [place] % (Auto) 7.3 Eos % (Auto) 1.0 Baso % (Auto) 0.4 Absolute Neuts (auto) 5.4 Absolute Lymphs (auto) 1.52 Nucleated RBC % 0 PT 27.9 H INR 2.7 Sodium 140 Potassium 5.4 H Chloride 108 H Carbon Dioxide 31.0 Anion Gap 1 L BUN 42 H Creatinine 2.45 H Estim Creat Clear Calc 21.37 Est GFR (MDRD) Af Amer 25 L Est GFR (MDRD) Non-Af 21 L BUN/Creatinine Ratio 17.1 Glucose 243 H Calcium 8.4 L Troponin I High Sens 19.9 B-Natriuretic Peptide 03/18/21 03:46 WBC RBC Hgb Hct MCV MCH MCHC RDW Std Deviation RDW Coeff of Angelika Plt Count MPV Immature Gran % (Auto) Neut % (Auto) Lymph % (Auto) [place] % (Auto) Eos % (Auto) Baso % (Auto) Absolute Neuts (auto) Absolute Lymphs (auto) Nucleated RBC % PT INR Sodium Potassium Chloride Carbon Dioxide Anion Gap BUN Creatinine Estim Creat Clear Calc Est GFR (MDRD) Af Amer Est GFR (MDRD) Non-Af BUN/Creatinine Ratio Glucose Calcium Troponin I High Sens B-Natriuretic Peptide 93.5 Radiography Diagnostic Testing: Radiology Impression Chest X-Ray 03/18/21 04:10 IMPRESSION: Normal x-ray examination of the chest. Electronically Signed: Marques Heath DO at 4:47 EDT Tel , Service support , Discharge Plan Triage Chief Complaint: Weakness ED Provider: Christ Skaggs Dx/Rx/DC Orders Prescriptions: No Action ergocalciferol (vitamin D2) 50,000 unit capsule 50,000 unit PO QMONTH 30 Days Qty: 1 RF: 0 warfarin 2.5 mg tablet 2.5 mg PO DAILY RF: 0 Lantus Solostar U-100 Insulin 100 unit/mL (3 mL) insulin pen 74 unit SC HS RF: 0 gabapentin 600 MG tablet 600 mg PO TIDCM RF: 0 simvastatin 20 MG tablet 20 mg PO QHS RF: 0 sertraline 50 MG tablet 50 mg PO DAILY RF: 0 amlodipine 5 MG tablet 5 mg PO DAILY RF: 0 acetaminophen 500 MG tablet 1,000 mg PO Q8H PRN PRN (Reason: Mild Pain (-11/02)) RF: 0 Mineral Oil/Petrolatum,White [Eucerin] 1 APPLIC Jar 1 applic TOPICAL DAILY RF: 0 dexamethasone 2 MG tablet 6 mg PO DAILY@0800 Qty: 6 RF: 0 guaifenesin 1,200 MG tablet extended release 12hr 1,200 mg PO BID Qty: 14 RF: 0 losartan 100 MG tablet 100 mg PO DAILY Qty: 0 RF: 0 linagliptin 5 mg tablet 5 mg PO DAILY 30 Days Qty: 30 RF: 0 albuterol sulfate 1 PUFF HFA aerosol inhaler 2 inh INHALATION 4X/DAY PRN PRN (Reason: SOB) RF: 0 Primary Care Provider: Marshall Baltazar NP
[2021-03-18 03:38] VITALS: O2SAT 92
[2021-03-18 03:55] LABS: Absolute Lymphocyte Count 1.52 X10^3/uL (0.83-4.51); Absolute Neutrophil Count 5.4 X10^3/uL (2.0-7.7); Basophil# 0.03 X10^3/uL; Basophil% 0.4 % (0-1); Eosinophil# 0.08 X10^3/uL; Hematocrit 37.9 % (37-47); Hemoglobin 11.1 g/dL (12.0-15.0); Lymphocyte # 1.52 X10^3/ul (0.83-4.51); Lymphocyte % 19.9 % (19-41); Mean Corp Hgb Conc 29.3 g/dL (32-36); Mean Corpuscular Hgb 29.9 pg (27.0-32.0); Mean Corpuscular Volume 102.2 fL (81-99); Mean Platelet Vol. 10.9 fl (6.2-12.0); Monocyte# 0.56 X10^3/uL; Monocyte% 7.3 % (0-10); NRBC Flagged by Analyzer 0 % (0-5); Neutrophil # 5.41 X10^3/uL (2.7-7.7); Platelet Count 148 K/mm3 (150-450); RBC Distribution Width CV 13.7 % (11.6-14.6); RBC Distribution Width SD 51.2 fl (35.1-43.9); Red Blood Count 3.71 M/mm3 (4.2-5.4); White Blood Count 7.6 K/mm3 (4.4-11.0)
[2021-03-18 04:05] LABS: International Normalized Ratio 2.7; Prothrombin Time (Protime)PT. 27.9 SECONDS (11.7-14.9)
--- NOTE | 2021-03-18 04:10 | RAD_ITS ---
STUDY: X-RAY CHEST REASON FOR EXAM: Female, 70 years old. chest pain TECHNIQUE: Single AP portable view of the chest. COMPARISON: 07/08/2020 FINDINGS: The lungs are clear and expanded. There is no demonstrated pleural abnormality. Normal size heart. Normal mediastinum and ray. Normal visualized pulmonary arteries. Normal visualized aortic arch and descending thoracic aorta. Normal visualized thoracic spine. Normal visualized ribs, clavicles, and shoulders. There is no demonstrated abnormality of the visualized soft tissue structures of the upper abdomen. RAD/Chest 1 View (Portable) IMPRESSION: Normal x-ray examination of the chest. Electronically Signed: Marques Heath DO at 4:47 EDT Tel , Service support ,
[2021-03-18 04:13] LABS: BNP,B-Type NATRIURETIC PEPTIDE 93.5 pg/mL (0-100)
[2021-03-18 04:16] LABS: Anion Gap 1 (5-15); BUN 42 mg/dL (7-18); BUN/Creat Ratio 17.1 RATIO (10-20); Calcium,Total 8.4 mg/dL (8.5-10.1); Chloride 108 mmol/L (98-107); Creatinine, Serum 2.45 mg/dL (0.55-1.02); EST Glomerular Filtration Rate 21 mL/min (>60); Est Glom Filt Rate - Afr Amer 25 mL/min (>60); Estimated Creatinine Clearance 21.37 ml/min; Glucose 243 mg/dL (74-106); Potassium 5.4 mmol/L (3.5-5.1); Sodium Level 140 mmol/L (136-145); Troponin-I HS 19.9 pg/mL (3.0-53.7)
[2021-03-18 05:39] VITALS: BP 165/64; PULSE 67; RESP 23; O2SAT 92
[2021-03-18 06:11] VITALS: O2SAT 84
--- NOTE | 2021-03-18 06:12 | ED.RN ---
RT ATTEMPTED TO AMBULATE PATIENT WITH WALKER. PT BECAME HYPOXIC AT 84% WHILE JUST SITTING UPRIGHT AT BEDSIDE. UNABLE TO SAFELY PERFORM WALK TEST
--- NOTE | 2021-03-18 06:27 | PCM.PN.BLA ---
Progress Note Initially called to admit patient because patient's oxygen saturation with ambulation dropped to 87%. Patient uses 4 L of nasal oxygen. Patient came in because of weakness. With ambulation on 6 L high with a walker which she uses at home her oxygen saturation was between 89 to 93%. Discussed with patient whether she want to stay at the hospital and possible get into rehabilitation. However patient prefers to go home. Advised to increase her oxygen to 6 L with activity and to rest between activities. Emergency department doctor discussed the case with membership correspondent and patient will follow up with pulmonology.
[2021-03-18 06:29] VITALS: O2SAT 94
== END 2021-03-18 07:40 | disposition home or self-care (01) ==
PROVIDERS: Emergency Provider Student in an Organized Health Care Education/Training Program; PCP Nurse Practitioner Family
DX: R09.02 Hypoxemia (principal); R53.1 Weakness; R06.82 Tachypnea, not elsewhere classified; E87.5 Hyperkalemia; E11.40 Type 2 diabetes mellitus with diabetic neuropathy, unspecified; I13.0 Hypertensive heart and chronic kidney disease with heart failure and stage 1 through stage 4 chronic kidney disease, or unspecified chronic kidney disease; E11.22 Type 2 diabetes mellitus with diabetic chronic kidney disease; N18.30 Chronic kidney disease, stage 3 unspecified; I50.810 Right heart failure, unspecified; I27.21 Secondary pulmonary arterial hypertension; I48.0 Paroxysmal atrial fibrillation; J44.9 Chronic obstructive pulmonary disease, unspecified; E78.5 Hyperlipidemia, unspecified; M19.90 Unspecified osteoarthritis, unspecified site; G47.33 Obstructive sleep apnea (adult) (pediatric); E66.01 Morbid (severe) obesity due to excess calories; E55.9 Vitamin D deficiency, unspecified; F32.9 Major depressive disorder, single episode, unspecified; Z99.81 Dependence on supplemental oxygen; Z79.01 Long term (current) use of anticoagulants; Z79.4 Long term (current) use of insulin; Z79.52 Long term (current) use of systemic steroids; Z79.899 Other long term (current) drug therapy; Z96.651 Presence of right artificial knee joint
CPT/HCPCS: 71045; 80048; 83880; 84484; 85025; 85610; 93005; 99285; A4216

== ENCOUNTER 2021-03-30 20:27 | Inpatient (IN) | payer MEDICARE, MEDICAID, SELFPAY ==
[2021-03-30 20:28] VITALS: BP 205/82; PULSE 79; RESP 26; TEMP 37.1; O2SAT 95; BMI 53.1
--- NOTE | 2021-03-30 20:35 | EKG12_ITS ---
Test Reason : DYSRHYTHMIA Blood Pressure : / mmHG Vent. Rate : 065 BPM Atrial Rate : 065 BPM P-R Int : 258 ms QRS Dur : 092 ms QT Int : 374 ms P-R-T Axes : 065 036 061 degrees QTc Int : 388 ms Sinus rhythm with 1st degree A-V block Low voltage QRS Poor R wave progression Confirmed by ROSEANN OSUNA, NOEMÍ ([id number]), pictures editor JENNIFER TOMLIN ([id number]) on 04/03/2021 10:04:12 AM Referred By: SNOW Confirmed By:NOEMÍ WHITFIELD MD
[2021-03-30 20:36] VITALS: BP 205/82; PULSE 78; RESP 16; O2SAT 96
--- NOTE | 2021-03-30 20:37 | EDS_ITS ---
HPI History of Present Illness Chief Complaint: General Illness Informant: patient Narrative Narrative: Patient is a 62-year-old female present with generalized weakness. Patient states she had worsening weakness over the past 2 weeks. Patient states today she was so weak she could not even make it to the bathroom. She notes she does not feel like herself. Patient denies any significant shortness of breath, chest pain, GI or symptoms. She denies any weakness on one side of body or the other. She has any headache or vision changes. She notes that her blood sugar has been more elevated lately and she is having hard time get under control. She recently did have her insulin change. Patient is on Coumadin for atrial fibrillation. She wears anywhere between 4 to 6 L of oxygen at baseline secondary to COPD. [facility] Medical History (Updated 03/31/21 @ 00:[address] Klaudia Martinez, ) Acute respiratory failure with hypoxia Allergic rhinitis Arthritis Asthma Cellulitis of right lower extremity Chronic kidney disease (CKD) stage G1/A2, glomerular filtration rate (GFR) equal to or greater than 90 mL/min/1.73 square meter and albuminuria creatinine ratio between 30-299 mg/g Chronic renal insufficiency, stage III (moderate) COPD (chronic obstructive pulmonary disease) Depression Diabetes Diabetic neuropathy associated with type 2 diabetes mellitus Hay fever Hyperlipidemia Hypertension Hypertension Knee pain Morbid obesity DIEGO (obstructive sleep apnea) Paroxysmal A-fib Right leg pain Right-sided congestive heart failure Secondary pulmonary arterial hypertension Venous insufficiency (chronic) (peripheral) Vitamin D deficiency Home Medications gabapentin 600 mg PO TIDCM 11/08/14 [History Last Taken 07/07/20] sertraline 50 mg PO DAILY 11/08/14 [History Last Taken 07/07/20] simvastatin 20 mg PO QHS 11/08/14 [History Last Taken 07/07/20] ergocalciferol (vitamin D2) 1,250 mcg (50,000 unit) capsule 50,000 unit PO QMONTH 30 Days #1 01/13/18 [History Last Taken 06/26/20] amlodipine 5 mg PO DAILY 03/31/18 [History Last Taken 07/07/20] acetaminophen 1,000 mg PO Q8H PRN PRN tab 04/14/18 [Rx Last Taken 07/08/20] insulin glargine 100 unit/mL (3 mL) subcutaneous pen 74 unit SC HS ml 05/22/18 [History Last Taken 07/07/20] warfarin 2.5 mg tablet 2.5 mg PO DAILY 05/22/18 [History Last Taken 07/07/20] albuterol sulfate 2 inh INHALATION 4X/DAY PRN PRN 03/18/21 [History Last Taken Unknown] dexamethasone 6 mg PO DAILY@0800 03/30/21 [History Last Taken Unknown] guaifenesin 1,200 mg PO BID 03/30/21 [History Last Taken Unknown] linagliptin 5 mg PO DAILY 03/30/21 [History Last Taken Unknown] losartan 100 mg PO DAILY 03/30/21 [History Last Taken Unknown] Allergy/AdvReac Type Severity Reaction Status Date / Time aspirin Allergy Unknown Unknown Verified 03/30/21 20:31 ibuprofen Allergy Unknown Verified 03/30/21 20:31 sulfamethoxazole Allergy Unknown Verified 03/30/21 20:31 [From ] trimethoprim [From ] Allergy Unknown Verified 03/30/21 20:31 Family History Mother CAD (coronary artery disease) Hypertension Father CAD (coronary artery disease) Hypertension Other Diabetes Heart disease Surgical History History of knee replacement procedure of right knee Hx of section Social History (Updated 05/23/18 @ 15:02 by Marion Guzmán SENIOR C WEB DEVELOPER, SENIOR C WEB DEVELOPER-C) Smoking Status: Never smoker ROS ROS ED Constitutional Constitutional ED: Denies chills, fever(s) or sweats Eyes Eyes: Denies blurry vision or change in vision ENT ENT ED: Denies rhinorrhea or sore throat Cardiovascular Cardiovascular: Denies chest pain or palpitations Respiratory/Chest Respiratory/Chest: Denies cough or dyspnea Gastrointestinal Gastrointestinal: Denies abdominal pain, diarrhea, nausea or vomiting Genitourinary Genitourinary ED: Denies dysuria or hematuria Musculoskeletal Musculoskeletal: Denies arthralgias or myalgias Integumentary Denies rash Neurologic Neurologic: Reports weakness; Denies headache(s) or paresthesias Psychiatric Psychiatric: Denies anxiety or depression Endocrine Endocrinology: Denies polydipsia or polyuria EXAM Physical Exam Const Vital Signs: 03/30/21 20:28 03/30/21 20:36 03/30/21 22:27 Temperature 98.7 F Temperature Source Oral Pulse Rate 79 78 67 Respiratory Rate 26 H 16 18 Respiratory Effort Normal Respiratory Pattern Normal Blood Pressure 205/82 H 205/82 H 152/58 H Blood Pressure Mean 123 123 89 Pulse Ox 95 96 96 Oxygen Delivery Method Nasal Cannula Nasal Cannula Room Air Oxygen Flow Rate (L/min) 4 4 Positive well nourished, well developed and obese General Appearance ED: well developed Nutritional Appearance: obese HEENT Reports normocephalic, head/scalp atraumatic and moist mucous membranes Eyes PERRL and EOMs intact bilaterally Neck supple and no JVD Chest Wall inspection of chest normal Resp normal respiratory effort and clear to auscultation bilaterally Cardio regular rate, regular rhythm and no murmurs GI normal to inspection, nondistended, normoactive bowel sounds Extremity normal to inspection General Extremety ED: Negative for edema or tenderness General Extremity: Negative for edema Neuro oriented x3, CN's II-XII intact bilaterally and no sensory deficits noted Neuro Narrative: Normal speech. NIH equals 0 Sensorium / Orientation: alert Motor Exam: general weakness Psych mental status grossly normal Skin no rashes or lesions noted and no wounds MDM MDM MDM Narrative Medical decision making narrative: Patient is evaluated for generalized weakness. States her blood sugar has been higher lately and she has not been feeling herself. She has no focal findings on exam. She is on her baseline oxygen. Patient's lab work is remarkable for slightly subtherapeutic INR of 1.9. Her hemoglobin is 10.5 and this appears to be close to her baseline. Her potassium is elevated at 6.0. This is repeated and is confirmed to be 6.0 without any hemolysis. Her BUN and creatinine are elevated at 50 and 2.48 however this appears to be near her baseline.-She troponin is normal at 14.6. Urinalysis is contaminated but not consistent with infection. CT the head does not show any acute process. Chest x-ray shows multifocal infiltrates that could be concerning for viral pneumonia. I think this is less likely as patient had Covid earlier this year does not have any new respiratory symptoms. However she will be tested for Covid with rapid antigen and PCR per request of admitting physician. Patient is given calcium gluconate, Kayexalate and insulin with the 50 for her hyperkalemia. She went in for further management of her hyper K and generalized weakness. Patient was given labetalol for her hypertension in the ER with appropriate improvement. Patient admitted to the PCU. She remained stable while in the emergency room. Lab Data Labs: Laboratory Results - last 24 hr 03/30/21 03/30/21 03/30/21 20:30 20:30 21:10 WBC 7.4 RBC 3.56 L Hgb 10.5 L Hct 37.9 MCV 106.5 H MCH 29.5 MCHC 27.7 L RDW Std Deviation 54.3 H RDW Coeff of Angelika 13.7 Plt Count 162 MPV 11.0 Immature Gran % (Auto) 0.400 Neut % (Auto) 66.9 Lymph % (Auto) 22.5 [place] % (Auto) 7.8 Eos % (Auto) 1.9 Baso % (Auto) 0.5 Absolute Neuts (auto) 5.0 Absolute Lymphs (auto) 1.67 Nucleated RBC % 0 PT 20.6 H INR 1.9 Sodium 140 Potassium 6.0 H* Chloride 108 H Carbon Dioxide 29.0 Anion Gap 3 L BUN 50 H Creatinine 2.48 H Estim Creat Clear Calc 21.11 Est GFR (MDRD) Af Amer 25 L Est GFR (MDRD) Non-Af 21 L BUN/Creatinine Ratio 20.2 H Glucose 236 H Calcium 8.4 L Total Bilirubin 0.70 AST 9 L ALT 14 Alkaline Phosphatase 72 Troponin I High Sens 14.6 Total Protein 8.7 H Albumin 3.3 Globulin 5.4 H Albumin/Globulin Ratio 0.6 L Urine Color Urine Clarity Urine pH Ur Specific [place] Urine Protein Urine Glucose (UA) Urine Ketones Urine Occult Blood Urine Nitrite Urine Bilirubin Urine Urobilinogen Ur Leukocyte Esterase Urine RBC Urine WBC Ur Squamous Epith Cells Amorphous Sediment Urine Bacteria Coarse Granular Casts Urine Mucus 03/30/21 03/30/21 21:50 22:10 WBC RBC Hgb Hct MCV MCH MCHC RDW Std Deviation RDW Coeff of Angelika Plt Count MPV Immature Gran % (Auto) Neut % (Auto) Lymph % (Auto) [place] % (Auto) Eos % (Auto) Baso % (Auto) Absolute Neuts (auto) Absolute Lymphs (auto) Nucleated RBC % PT INR Sodium Potassium 6.0 H* Chloride Carbon Dioxide Anion Gap BUN Creatinine Estim Creat Clear Calc Est GFR (MDRD) Af Amer Est GFR (MDRD) Non-Af BUN/Creatinine Ratio Glucose Calcium Total Bilirubin AST ALT Alkaline Phosphatase Troponin I High Sens Total Protein Albumin Globulin Albumin/Globulin Ratio Urine Color Yellow Urine Clarity Cloudy Urine pH 5.0 Ur Specific [place] 1.020 Urine Protein 100 H Urine Glucose (UA) 250 H Urine Ketones Negative Urine Occult Blood 50 H Urine Nitrite Negative Urine Bilirubin Negative Urine Urobilinogen Normal Ur Leukocyte Esterase 25 H Urine RBC 5-10 SEEN Urine WBC 0-5 SEEN Ur Squamous Epith Cells 5-10 SEEN Amorphous Sediment 1+ Urine Bacteria 0 SEEN Coarse Granular Casts 0-5 SEEN Urine Mucus 0 SEEN Radiography Chest X-Ray - ED: 1 View, Read by Radiologist, Right Infiltrate and Left Infiltrate Diagnostic Testing: Radiology Impression Brain CT 03/30/21 20:50 IMPRESSION: Mild atrophy and advanced periventricular white matter ischemic change. No evidence for acute bleed. If concern for acute infarct MRI recommended Electronically Signed: Claude Davis MD at 21:54 EDT , Service support , Chest X-Ray 03/30/21 21:05 IMPRESSION: Findings suggestive of Covid 19 pneumonia. Clinical correlation recommended Electronically Signed: Claude Davis MD at 22:04 EDT , Service support , Rhythm Strip Rhythm Strip: Sinus Rhythm Rate: 65 Ectopy: None EKG Initial EKG: Attestation: I personally reviewed and interpreted this EKG as follows: Interpretation: Sinus Rhythm Comments: Normal sinus rhythm with first-degree AV block Rate is 65 MI interval is 258 Normal QRS and QTc Normal axis Normal ST segments Prior: Unchanged Follow-up EKG: Attestation: I personally reviewed and interpreted this EKG as follows: Interpretation: Sinus Rhythm Comments: Normal sinus rhythm at a rate of 69 First-degree AV block MI interval is 236 No acute changes Discharge Plan Triage Chief Complaint: General Illness ED Provider: Klaudia Martinez Dx/Rx/DC Orders Clinical Impression: Hypertension, Hyperkalemia, Chronic renal insufficiency, stage III (moderate) Primary Care Provider: Marshall Baltazar NP Disposition Disposition: Acute [facility]
[2021-03-30 20:43] LABS: Absolute Lymphocyte Count 1.67 X10^3/uL (0.83-4.51); Basophil# 0.04 X10^3/uL; Basophil% 0.5 % (0-1); Eosinophil# 0.14 X10^3/uL; Eosinophils% 1.9 % (0-5); Hematocrit 37.9 % (37-47); Hemoglobin 10.5 g/dL (12.0-15.0); Lymphocyte # 1.67 X10^3/ul (0.83-4.51); Lymphocyte % 22.5 % (19-41); Mean Corp Hgb Conc 27.7 g/dL (32-36); Mean Corpuscular Hgb 29.5 pg (27.0-32.0); Mean Corpuscular Volume 106.5 fL (81-99); Monocyte# 0.58 X10^3/uL; Monocyte% 7.8 % (0-10); NRBC Flagged by Analyzer 0 % (0-5); Neutrophil # 4.97 X10^3/uL (2.7-7.7); Neutrophil % 66.9 % (47-70); Platelet Count 162 K/mm3 (150-450); RBC Distribution Width CV 13.7 % (11.6-14.6); RBC Distribution Width SD 54.3 fl (35.1-43.9); Red Blood Count 3.56 M/mm3 (4.2-5.4); White Blood Count 7.4 K/mm3 (4.4-11.0)
--- NOTE | 2021-03-30 20:50 | CT_ITS ---
STUDY: CT BRAIN WITHOUT CONTRAST REASON FOR EXAM: Female, 70 years old. generalized weakness RADIATION DOSAGE (If Supplied By Facility): CTDIvol = ( 44.99 ) mGy, DLP = ( 779.24 ) mGycm TECHNIQUE: Transaxial CT imaging of the brain was performed without administration of intravenous contrast material. Individualized dose optimization techniques were used for this CT. COMPARISON: No relevant priors. FINDINGS: Normal soft tissue structures. Normal calvarium. Calcification of cavernous carotids. Mild atrophy and severe periventricular white matter ischemic changes.. Normal basal ganglia and thalami. Normal brainstem. Normal cerebellum. There is no intracranial hemorrhage. There are no findings of an acute ischemic infarction. Postsurgical changes of the right orbit. Diffuse opacification of left maxillary sinus. CT/Brain/Head without Contrast IMPRESSION: Mild atrophy and advanced periventricular white matter ischemic change. No evidence for acute bleed. If concern for acute infarct MRI recommended Electronically Signed: Claude Davis MD at 21:54 EDT , Service support ,
--- NOTE | 2021-03-30 21:05 | RAD_ITS ---
STUDY: X-RAY CHEST REASON FOR EXAM: Female, 70 years old. weakness TECHNIQUE: AP portable COMPARISON: 03/18/2021 FINDINGS: There are are patchy areas of increased density seen bilaterally in the upper and lower lobes which may be consistent with atypical viral pneumonia. Heart is enlarged. Normal mediastinum and ray. Normal visualized pulmonary arteries. Normal visualized aortic arch and descending thoracic aorta. Normal visualized thoracic spine. Normal visualized ribs, clavicles, and shoulders. There is no demonstrated abnormality of the visualized soft tissue structures of the upper abdomen. RAD/Chest 1 View (Portable) IMPRESSION: Findings suggestive of Covid 19 pneumonia. Clinical correlation recommended Electronically Signed: Claude Davis MD at 22:04 EDT , Service support ,
[2021-03-30] MEDS: Labetalol (Prefilled) 20 MG/4 ML 10 MG IV (21:09)
[2021-03-30 21:31] LABS: ALB/GLOB Ratio 0.6 RATIO (0.9-2.4); AST(SGOT) 9 U/L (15-37); Alanine Aminotransfer ALT/SGPT 14 U/L (13-56); Albumin, Serum 3.3 g/dL (3.2-5.0); Alkaline Phosphatase 72 U/L (45-117); Anion Gap 3 (5-15); BUN 50 mg/dL (7-18); BUN/Creat Ratio 20.2 RATIO (10-20); Calcium,Total 8.4 mg/dL (8.5-10.1); Chloride 108 mmol/L (98-107); Creatinine, Serum 2.48 mg/dL (0.55-1.02); EST Glomerular Filtration Rate 21 mL/min (>60); Est Glom Filt Rate - Afr Amer 25 mL/min (>60); Estimated Creatinine Clearance 21.11 ml/min; Globulin 5.4 g/dL (2.2-4.2); Glucose 236 mg/dL (74-106); Protein, Total 8.7 g/dL (6.4-8.2); Sodium Level 140 mmol/L (136-145); Troponin-I HS 14.6 pg/mL (3.0-53.7)
[2021-03-30 21:37] LABS: International Normalized Ratio 1.9; Prothrombin Time (Protime)PT. 20.6 SECONDS (11.7-14.9)
[2021-03-30 22:06] LABS: Bacteria 0 SEEN /hpf (None Seen); Mucous, Urine 0 SEEN /hpf (<or=2+)
[2021-03-30 22:12] LABS: Color, Urine Yellow (Yellow); Glucose, Dipstick 250 mg/dl (Normal); Ketone-Dipstick Negative (Negative); Leukocyte Esterase-Dipstick 25 /ul (Negative); Nitrite-Dipstick Negative (Negative); Occult Blood-Urine 50 /ul (Negative); Protein-Dipstick 100 mg/dl (Negative); Urine Bilirubin Dipstick Negative (Negative); Urine Clarity Cloudy (Clear); Urine Urobilinogen Normal (Normal)
[2021-03-30 22:18] LABS: Red Blood Cells-Urine 5-10 SEEN /hpf (0-5); Squamous Epithelial Cells - UA 5-10 SEEN /hpf (5-10); White Blood Cells 0-5 SEEN /hpf (0-5)
[2021-03-30 22:19] LABS: Amorphous Sediment 1+; Coarse Granular Cast 0-5 SEEN /lpf (0-5 /lpf)
[2021-03-30 22:27] VITALS: BP 152/58; PULSE 67; RESP 18; O2SAT 96
--- NOTE | 2021-03-30 23:06 | EKG12_ITS ---
Test Reason : DYSRHYTHMIA Blood Pressure : / mmHG Vent. Rate : 069 BPM Atrial Rate : 069 BPM P-R Int : 236 ms QRS Dur : 094 ms QT Int : 356 ms P-R-T Axes : 060 061 057 degrees QTc Int : 381 ms Sinus rhythm with 1st degree A-V block Poor R wave progression Confirmed by ROSEANN OSUNA, NOEMÍ ([id number]), online content editor JENNIFER TOMILN ([id number]) on 04/03/2021 10:04:32 AM Referred By: SNOW Confirmed By:NOEMÍ WHITFIELD MD
--- NOTE | 2021-03-30 23:14 | PCM.HP.STD ---
HPI - General General Date of Admission: 03/30/21 Date of Service: 03/30/21 Chief Complaint: Generalised weakness - 2 weeks HPI Narrative ELINA MEZA, is a 70 F who presents with generalized weakness that has been going on for about 2 weeks. Patient lives with her significant other and her daughter. She ambulates at baseline with a walker. She comes in with progressive weakness. Denied any fever or chills or diarrhea or nausea or vomiting. She denied any sick contacts. She is usually on 6 L of oxygen at baseline. Her vitals in the ED showed elevated blood pressure 205/82. Her admitting blood work showed potassium of 6.0. This was repeated. Creatinine is about her baseline; 2.48. Her blood sugars have been uncontrolled Chest x-ray showed patchy areas of increased density suggestive of COVID-19 pneumonia. COVID-19 rapid antigen and PCR has been negative. [facility] Medical History (Updated 03/31/21 @ 01:[address] Sanna Mac MD) Acute respiratory failure with hypoxia Allergic rhinitis Arthritis Asthma Atrial fibrillation Cellulitis of right lower extremity Chronic kidney disease (CKD) stage G1/A2, glomerular filtration rate (GFR) equal to or greater than 90 mL/min/1.73 square meter and albuminuria creatinine ratio between 30-299 mg/g COPD (chronic obstructive pulmonary disease) Depression Diabetes Diabetic neuropathy associated with type 2 diabetes mellitus Hay fever Hyperlipidemia Hypertension Hypertension Knee pain Morbid obesity On home oxygen therapy DIEGO (obstructive sleep apnea) Paroxysmal A-fib Right leg pain Right-sided congestive heart failure Secondary pulmonary arterial hypertension Sleep apnea Venous insufficiency (chronic) (peripheral) Vitamin D deficiency Home Medications gabapentin 600 mg PO TIDCM 11/08/14 [History Last Taken 07/07/20] sertraline 50 mg PO DAILY 11/08/14 [History Last Taken 07/07/20] simvastatin 20 mg PO QHS 11/08/14 [History Last Taken 07/07/20] ergocalciferol (vitamin D2) 1,250 mcg (50,000 unit) capsule 50,000 unit PO QMONTH 30 Days #1 01/13/18 [History Last Taken 06/26/20] amlodipine 5 mg PO DAILY 03/31/18 [History Last Taken 07/07/20] acetaminophen 1,000 mg PO Q8H PRN PRN tab 04/14/18 [Rx Last Taken 07/08/20] insulin glargine 100 unit/mL (3 mL) subcutaneous pen 74 unit SC HS ml 05/22/18 [History Last Taken 07/07/20] warfarin 2.5 mg tablet 2.5 mg PO DAILY 05/22/18 [History Last Taken 07/07/20] albuterol sulfate 2 inh INHALATION 4X/DAY PRN PRN 03/18/21 [History Last Taken Unknown] dexamethasone 6 mg PO DAILY@0800 03/30/21 [History Last Taken Unknown] guaifenesin 1,200 mg PO BID 03/30/21 [History Last Taken Unknown] linagliptin 5 mg PO DAILY 03/30/21 [History Last Taken Unknown] losartan 100 mg PO DAILY 03/30/21 [History Last Taken Unknown] Allergy/AdvReac Type Severity Reaction Status Date / Time aspirin Allergy Unknown Unknown Verified 03/30/21 20:31 ibuprofen Allergy Unknown Verified 03/30/21 20:31 sulfamethoxazole Allergy Unknown Verified 03/30/21 20:31 [From ] trimethoprim [From ] Allergy Unknown Verified 03/30/21 20:31 Family History Mother CAD (coronary artery disease) Hypertension Father CAD (coronary artery disease) Hypertension Other Diabetes Heart disease Surgical History History of knee replacement procedure of right knee Hx of section Social History household members: spouse, family and children housing: house current occupational status: unemployed and retired Smoking Status: Never smoker ROS ROS Narrative Constitutional: Reports: Malaise, Weakness, Fatigue. Denies: Anorexia, Chills, Fever, Night Sweats, Weight Change Eyes: Denies: Blurred vision, Cataracts, Conjunctivae Inflammation, Pain, Redness, Vision Change HEENT: Denies: Difficulty Hearing, Difficulty Swallowing, Head Aches, Hearing Changes, Sinus Congestion, Sinus Drainage Cardiovascular: Denies: Chest Pain, Orthopnea, Palpitations Respiratory: Denies: Cough, Shortness of breath at rest, Sputum production Gastrointestinal: Denies: Abdominal Pain, Nausea, Vomiting Genitourinary: Denies: Dysuria Musculoskeletal: Denies: Joint Pain, Joint stiffness, Joint swelling, Joint Tenderness Skin: Denies: Rash, Wounds Neurological: Denies: Numbness, Tingling, Focal weakness Vital Signs Vital Signs Vital Signs: 03/30/21 20:28 03/30/21 20:36 03/30/21 22:27 Temperature 98.7 F Temperature Source Oral Pulse Rate 79 78 67 Respiratory Rate 26 H 16 18 Respiratory Effort Normal Respiratory Pattern Normal Blood Pressure 205/82 H 205/82 H 152/58 H Blood Pressure Mean 123 123 89 Pulse Ox 95 96 96 Oxygen Delivery Method Nasal Cannula Nasal Cannula Room Air Oxygen Flow Rate (L/min) 4 4 Weight Weight: 154 kg Body Mass Index (BMI) 53.1 Physical Exam Narrative Physical exam: General: Alert, Oriented x3, Cooperative, No apparent distress, Well developed HEENT: Atraumatic Oral: Moist Mucosa Neck: Supple Lungs: Clear to auscultation Cardiovascular: HS I+II, regular, no murmurs Abdomen: Bowel Sounds Present, Soft, Non Tender Extremities: No edema Skin: No rashes, No breakdown Neurological: Grossly intact Psych/Mental Status: Appropriate Results Lab / Micro Data Result Diagrams: 03/30/21 20:30 03/31/21 00:58 Labs: Laboratory Results - last 24 hr 03/30/21 20:30: WBC 7.4, RBC 3.56 L, Hgb 10.5 L, Hct 37.9, MCV 106.5 H, MCH 29.5, MCHC 27.7 L, RDW Std Deviation 54.3 H, RDW Coeff of Angelika 13.7, Plt Count 162, MPV 11.0, Immature Gran % (Auto) 0.400, Neut % (Auto) 66.9, Lymph % (Auto) 22.5, [place] % (Auto) 7.8, Eos % (Auto) 1.9, Baso % (Auto) 0.5, Absolute Neuts (auto) 5.0, Absolute Lymphs (auto) 1.67, Nucleated RBC % 0 03/30/21 20:30: Sodium 140, Potassium 6.0 H*, Chloride 108 H, Carbon Dioxide 29.0, Anion Gap 3 L, BUN 50 H, Creatinine 2.48 H, Estim Creat Clear Calc 21.11, Est GFR (MDRD) Af Amer 25 L, Est GFR (MDRD) Non-Af 21 L, BUN/Creatinine Ratio 20.2 H, Glucose 236 H, Calcium 8.4 L, Total Bilirubin 0.70, AST 9 L, ALT 14, Alkaline Phosphatase 72, Troponin I High Sens 14.6, Total Protein 8.7 H, Albumin 3.3, Globulin 5.4 H, Albumin/Globulin Ratio 0.6 L 03/30/21 21:10: PT 20.6 H, INR 1.9 03/30/21 21:50: Urine Color Yellow, Urine Clarity Cloudy, Urine pH 5.0, Ur Specific [place] 1.020, Urine Protein 100 H, Urine Glucose (UA) 250 H, Urine Ketones Negative, Urine Occult Blood 50 H, Urine Nitrite Negative, Urine Bilirubin Negative, Urine Urobilinogen Normal, Ur Leukocyte Esterase 25 H, Urine RBC 5-10 SEEN, Urine WBC 0-5 SEEN, Ur Squamous Epith Cells 5-10 SEEN, Amorphous Sediment 1+, Urine Bacteria 0 SEEN, Coarse Granular Casts 0-5 SEEN, Urine Mucus 0 SEEN 03/30/21 22:10: Potassium 6.0 H* Radiology Impression Brain CT 03/30/21 20:50 IMPRESSION: Mild atrophy and advanced periventricular white matter ischemic change. No evidence for acute bleed. If concern for acute infarct MRI recommended Electronically Signed: Claude Davis MD at 21:54 EDT , Service support , Chest X-Ray 03/30/21 21:05 IMPRESSION: Findings suggestive of Covid 19 pneumonia. Clinical correlation recommended Electronically Signed: Claude Davis MD at 22:04 EDT , Service support , Assessment & Plan Assessment/Plan (1) Hyperkalemia: (2) DIEGO (obstructive sleep apnea): (3) CKD stage 4 due to type 1 diabetes mellitus: PLAN: 1. Hyperkalemia likely secondary to type IV RTA, patient with CKD stage IV Admitting potassium was 6.0, treated in the ED with Kayexalate -patient had a bowel movement, insulin, breathing treatments Repeat potassium was 5.7, will continue on gentle IV fluids, hold losartan Repeat blood work in a.m. 2. Hypertensive urgency, admitting systolic blood pressure was more than 200, improved now Continue home blood pressure medications -amlodipine 3. Type II DM complicated by peripheral neuropathy, continue home insulin regimen 4. CKD stage IV, creatinine is about baseline, continue on gentle IV fluids, repeat blood work in a.m. 5. Chronic combined respiratory failure(patient on 6 L of oxygen at home)/DIEGO/super morbid obesity(BMI 50.2) Continue rest of home medication 6. Paroxysmal A. fib, EKG on admission shows normal sinus rhythm, INR is 1.9, continue on Coumadin, repeat INR in a.m. 7. Debility related to the above, Pt/OT to evaluate and treat Charges/Coding Visit Charges Inpatient E&M: 51071 Init Hosp L3
[2021-03-30] MEDS: Insulin Lispro 10 UNIT in Syringe 0 ML 6 UNIT IV (23:48)
[2021-03-30] MEDS: Sodium Polystyrene Sulfonate 15 GM/60 ML UDC 30 GM PO (23:48)
[2021-03-30] MEDS: Dextrose 50%-Water 25 GM/50 ML DISP.SYRIN IV (23:48)
[2021-03-30 23:57] VITALS: BP 178/97; PULSE 92; RESP 22; TEMP 37.1; O2SAT 94
[2021-03-31] VITALS (15 sets, daily range): BP systolic 145–177; BP diastolic 67–93; PULSE 78–159; RESP 12–22; TEMP 36–36.8; O2SAT 91–97; BMI 50.2
[2021-03-31 00:35] LABS: Probe Check PASS; Specimen Processing Control PASS
[2021-03-31] MEDS: 0.9% Normal Saline 1,000 ML 100 ML IV (00:47)
[2021-03-31 01:17] LABS: Anion Gap 3 (5-15); BUN 52 mg/dL (7-18); BUN/Creat Ratio 21.2 RATIO (10-20); Calcium,Total 8.9 mg/dL (8.5-10.1); Chloride 110 mmol/L (98-107); Creatinine, Serum 2.45 mg/dL (0.55-1.02); EST Glomerular Filtration Rate 21 mL/min (>60); Est Glom Filt Rate - Afr Amer 25 mL/min (>60); Estimated Creatinine Clearance 22.17 ml/min; Glucose 175 mg/dL (74-106); Potassium 5.7 mmol/L (3.5-5.1); Sodium Level 141 mmol/L (136-145)
[2021-03-31 05:50] LABS: Absolute Lymphocyte Count 1.36 X10^3/uL (0.83-4.51); Absolute Neutrophil Count 5.7 X10^3/uL (2.0-7.7); Basophil# 0.03 X10^3/uL; Basophil% 0.4 % (0-1); Eosinophil# 0.08 X10^3/uL; Hematocrit 37.9 % (37-47); Hemoglobin 10.3 g/dL (12.0-15.0); Lymphocyte # 1.36 X10^3/ul (0.83-4.51); Lymphocyte % 17.7 % (19-41); Mean Corp Hgb Conc 27.2 g/dL (32-36); Mean Corpuscular Hgb 29.3 pg (27.0-32.0); Mean Corpuscular Volume 107.7 fL (81-99); Mean Platelet Vol. 10.7 fl (6.2-12.0); Monocyte% 6.5 % (0-10); NRBC Flagged by Analyzer 0 % (0-5); Neutrophil # 5.67 X10^3/uL (2.7-7.7); Platelet Count 153 K/mm3 (150-450); RBC Distribution Width CV 13.6 % (11.6-14.6); RBC Distribution Width SD 54.2 fl (35.1-43.9); Red Blood Count 3.52 M/mm3 (4.2-5.4); White Blood Count 7.7 K/mm3 (4.4-11.0)
--- NOTE | 2021-03-31 05:55 | RAD_ITS ---
STUDY: X-RAY CHEST REASON FOR EXAM: Female, 70 years old. SOB, COVID negative TECHNIQUE: Single AP portable view of the chest. COMPARISON: 03/30/2021 FINDINGS: No change in the alveolar opacities in both lungs consistent with bilateral pneumonia. There is no demonstrated pleural abnormality. There is moderate cardiac enlargement. Normal mediastinum and ray. Normal visualized pulmonary arteries. Normal visualized aortic arch and descending thoracic aorta. Normal visualized thoracic spine. Normal visualized ribs, clavicles, and shoulders. There is no demonstrated abnormality of the visualized soft tissue structures of the upper abdomen. RAD/Chest 1 View (Portable) IMPRESSION: No change in bilateral pneumonia. Electronically Signed: Marshall Curtis MD at 8:42 EDT Tel , Service support ,
[2021-03-31 05:59] LABS: International Normalized Ratio 1.9; Prothrombin Time (Protime)PT. 21.4 SECONDS (11.7-14.9)
[2021-03-31 06:23] LABS: ALB/GLOB Ratio 0.6 RATIO (0.9-2.4); AST(SGOT) 9 U/L (15-37); Alanine Aminotransfer ALT/SGPT 13 U/L (13-56); Albumin, Serum 3.1 g/dL (3.2-5.0); Alkaline Phosphatase 68 U/L (45-117); Anion Gap 1 (5-15); BUN 49 mg/dL (7-18); Calcium,Total 8.6 mg/dL (8.5-10.1); Chloride 111 mmol/L (98-107); Creatinine, Serum 2.33 mg/dL (0.55-1.02); EST Glomerular Filtration Rate 22 mL/min (>60); Est Glom Filt Rate - Afr Amer 27 mL/min (>60); Estimated Creatinine Clearance 23.31 ml/min; Glucose 229 mg/dL (74-106); Potassium 5.8 mmol/L (3.5-5.1); Protein, Total 8.1 g/dL (6.4-8.2); Sodium Level 140 mmol/L (136-145)
[2021-03-31] MEDS: Nystatin Powder 15gm Bottle 1 APPLIC TOPICAL ×3 (09:16→21:29)
[2021-03-31] MEDS: LINAGLIPTIN 5 MG TABLET PO (09:17)
[2021-03-31] MEDS: amLODIPine 5 MG Tablet PO (09:17)
[2021-03-31] MEDS: Sertraline 50 MG Tablet PO (09:17)
[2021-03-31] MEDS: Gabapentin 600 MG Tablet PO ×3 (09:17→16:11)
[2021-03-31] MEDS: Insulin Lispro 100 UNIT/ML INSULN.PEN SC ×4 (09:18→21:29)
[2021-03-31] MEDS: Acetaminophen 500 MG Tablet 1000 MG PO (09:22)
[2021-03-31 09:35] LABS: Bedside Glucose 272 mg/dL (70-110)
--- NOTE | 2021-03-31 10:09 | CT_ITS ---
STUDY: CT CHEST WITHOUT CONTRAST REASON FOR EXAM: Female, 70 years old. respiratory rfailure RADIATION DOSAGE (If Supplied By Facility): CTDIvol = ( 20.15 ) mGy, DLP = ( 669.60 ) mGycm TECHNIQUE: Transaxial imaging was performed without the administration of intravenous contrast material. Individualized dose optimization techniques were used for this CT. COMPARISON: Chest x-ray earlier today, CT 03/31/2018 FINDINGS: Bilateral patchy groundglass and alveolar densities consistent with pneumonia. Some dependent bibasilar atelectasis. There is no demonstrated pleural abnormality. There is moderate cardiac enlargement. Normal mediastinum. Normal hilar regions. Normal unenhanced pulmonary arteries. Normal aorta arch and descending thoracic aorta. Normal osseous structures. There is no demonstrated abnormality of the visualized upper abdomen. CT/Chest without Contrast IMPRESSION: Bilateral pneumonia. Commonly reported imaging features of COUMADIN 19 pneumonia are present. Other processes such as influenza pneumonia and organized pneumonia, as can be seen with drug toxicity connective tissue disease, can cause a similar imaging pattern. Electronically Signed: Marshall Curtis MD at 10:27 EDT Tel , Service support ,
[2021-03-31] MEDS: Albuterol 2.5 MG/3 ML VIAL.NEB. INHALATION (11:30)
[2021-03-31 11:50] LABS: Bedside Glucose 273 mg/dL (70-110)
[2021-03-31] MEDS: Sodium Polystyrene Sulfonate 15 GM/60 ML UDC 30 GM PO ×2 (11:55→14:53)
--- NOTE | 2021-03-31 12:05 | CASEMGMT ---
GORGE ZIEGLER Face to Face with patient for initial transition planning/care coordination assessment. RN CM introduced self and role at [facility]. Patient sitting in chair, alert and oriented. Patient willing to participate in assessment and is able to answer all questions appropriately. Care providers, pharmacy, and demographics verified. Patient wishes to discharge home with possible HHC. Patient is willing to go to SNF if recommend by therapy. Will monitor progress with therapy. Patient states she has no further needs or concerns at this time. CM to follow for discharge planning needs that may arise. PCP: Giovanny Specialists: Diogo mathematics technician Preferred Pharmacy: [facility] Insurance: [employer] [facility] Prescription Benefit: yes Living Will/HPOA: none LNOK: daughter, significant other Living Arrangements: Patient lives with significant other and daughter in a first floor apartment, no steps to enter the home. Patient states she is independent at home. Transportation: significant other, Paras DME/HHC: patient states she has shower chair, cane, walker, grab bars, and home oxygen at 6lpm through [employer] with portability. Patient denies previous HHC or SNF. Disposition Plan: TBD HHC vs SNF pending progress with therapy. Monika LI, RN, CM
--- NOTE | 2021-03-31 12:09 | PCM.PN.HOSP ---
Subjective Subjective Patient was seen and examined today, I talked briefly with pulmonary medicine who I am going to have see the patient in consultation. According to the patient, she used to see Dr. Campos but she has not followed up in quite a while with him. Patient is on chronic oxygen at home, she states she has been on it for at least a year. She states that she believes she is on it due to exposure to secondhand smoke. I ordered a chest CT on the patient today at the direction of pulmonary medicine, it showed bilateral infiltrates suggestive of a pneumonic process. Patient's respiratory panel is pending at this time, her Covid 19 antigen test was negative, she states she has been vaccinated against Covid. Objective Data Objective Data Vital Signs: Vital Signs Temp Pulse Resp BP Pulse Ox 98.1 F 88 20 H 156/93 H 93 03/31/21 08:53 03/31/21 08:53 03/31/21 10:00 03/31/21 08:53 03/31/21 08:53 Oxygen Flow Rate (L/min) 6 Oxygen Delivery Method Nasal Cannula Weight: 149.9 kg Body Mass Index (BMI) 50.2 Intake & Output: Intake and Output for Last 24 Hours 03/29/21 03/30/21 03/31/21 23:59 23:59 23:59 Intake Total 1000 / 1000 Balance 1000 / 1000 Lab / Micro Data Result Diagrams: 03/31/21 05:33 03/31/21 05:33 Labs: Laboratory Results - last 24 hr 03/30/21 20:30: WBC 7.4, RBC 3.56 L, Hgb 10.5 L, Hct 37.9, MCV 106.5 H, MCH 29.5, MCHC 27.7 L, RDW Std Deviation 54.3 H, RDW Coeff of Angelika 13.7, Plt Count 162, MPV 11.0, Immature Gran % (Auto) 0.400, Neut % (Auto) 66.9, Lymph % (Auto) 22.5, [place] % (Auto) 7.8, Eos % (Auto) 1.9, Baso % (Auto) 0.5, Absolute Neuts (auto) 5.0, Absolute Lymphs (auto) 1.67, Nucleated RBC % 0 03/30/21 20:30: Sodium 140, Potassium 6.0 H*, Chloride 108 H, Carbon Dioxide 29.0, Anion Gap 3 L, BUN 50 H, Creatinine 2.48 H, Estim Creat Clear Calc 21.11, Est GFR (MDRD) Af Amer 25 L, Est GFR (MDRD) Non-Af 21 L, BUN/Creatinine Ratio 20.2 H, Glucose 236 H, Calcium 8.4 L, Total Bilirubin 0.70, AST 9 L, ALT 14, Alkaline Phosphatase 72, Troponin I High Sens 14.6, Total Protein 8.7 H, Albumin 3.3, Globulin 5.4 H, Albumin/Globulin Ratio 0.6 L 03/30/21 21:10: PT 20.6 H, INR 1.9 03/30/21 21:50: Urine Color Yellow, Urine Clarity Cloudy, Urine pH 5.0, Ur Specific [place] 1.020, Urine Protein 100 H, Urine Glucose (UA) 250 H, Urine Ketones Negative, Urine Occult Blood 50 H, Urine Nitrite Negative, Urine Bilirubin Negative, Urine Urobilinogen Normal, Ur Leukocyte Esterase 25 H, Urine RBC 5-10 SEEN, Urine WBC 0-5 SEEN, Ur Squamous Epith Cells 5-10 SEEN, Amorphous Sediment 1+, Urine Bacteria 0 SEEN, Coarse Granular Casts 0-5 SEEN, Urine Mucus 0 SEEN 03/30/21 22:10: Potassium 6.0 H* 03/30/21 23:20: COVID-19 (АНДРЕЙ) Negative 03/31/21 00:58: Sodium 141, Potassium 5.7 H, Chloride 110 H, Carbon Dioxide 28.0, Anion Gap 3 L, BUN 52 H, Creatinine 2.45 H, Estim Creat Clear Calc 22.17, Est GFR (MDRD) Af Amer 25 L, Est GFR (MDRD) Non-Af 21 L, BUN/Creatinine Ratio 21.2 H, Glucose 175 H, Calcium 8.9 03/31/21 05:33: WBC 7.7, RBC 3.52 L, Hgb 10.3 L, Hct 37.9, MCV 107.7 H, MCH 29.3, MCHC 27.2 L, RDW Std Deviation 54.2 H, RDW Coeff of Angelika 13.6, Plt Count 153, MPV 10.7, Immature Gran % (Auto) 0.400, Neut % (Auto) 74.0 H, Lymph % (Auto) 17.7 L, [place] % (Auto) 6.5, Eos % (Auto) 1.0, Baso % (Auto) 0.4, Absolute Neuts (auto) 5.7, Absolute Lymphs (auto) 1.36, Nucleated RBC % 0 03/31/21 05:33: PT 21.4 H, INR 1.9 03/31/21 05:33: Sodium 140, Potassium 5.8 H, Chloride 111 H, Carbon Dioxide 28.0, Anion Gap 1 L, BUN 49 H, Creatinine 2.33 H, Estim Creat Clear Calc 23.31, Est GFR (MDRD) Af Amer 27 L, Est GFR (MDRD) Non-Af 22 L, BUN/Creatinine Ratio 21.0 H, Glucose 229 H, Calcium 8.6, Total Bilirubin 1.00, AST 9 L, ALT 13, Alkaline Phosphatase 68, Total Protein 8.1, Albumin 3.1 L, Globulin 5.0 H, Albumin/Globulin Ratio 0.6 L 03/31/21 09:02: POC Glucose 272 H 03/31/21 11:31: POC Glucose 273 H Micro: Microbiology 03/30/21 23:20 Interface Orders SARS-CoV-2 Antigen (Rapid) - Final Radiography Diagnostic Testing: Radiology Impression Brain CT 03/30/21 20:50 IMPRESSION: Mild atrophy and advanced periventricular white matter ischemic change. No evidence for acute bleed. If concern for acute infarct MRI recommended Electronically Signed: Claude Davis MD at 21:54 EDT , Service support , Chest X-Ray 03/30/21 21:05 IMPRESSION: Findings suggestive of Covid 19 pneumonia. Clinical correlation recommended Electronically Signed: Claude Davis MD at 22:04 EDT , Service support , Chest X-Ray 03/31/21 05:55 IMPRESSION: No change in bilateral pneumonia. Electronically Signed: Marshall Curtis MD at 8:42 EDT Tel , Service support , Chest CT 03/31/21 10:09 IMPRESSION: Bilateral pneumonia. Commonly reported imaging features of COUMADIN 19 pneumonia are present. Other processes such as influenza pneumonia and organized pneumonia, as can be seen with drug toxicity connective tissue disease, can cause a similar imaging pattern. Electronically Signed: Marshall Curtis MD at 10:27 EDT Tel , Service support , ADDENDUM: 03/31/21 1054 Rhythm Strip Rhythm Strip: Sinus Rhythm Rate: 65 Ectopy: None Physical Exam Const alert, oriented x3 and no apparent distress Constitutional Narrative: Patient is morbidly obese General Appearance: cooperative, well kempt and well developed Orientation / Consciousness: awake, oriented to person, oriented to place and oriented to time HEENT normocephalic, head/scalp atraumatic and moist oral mucous membranes Head and Scalp: normocephalic Eyes PERRL, EOMs intact bilaterally and conjunctivae normal Neck nuchal rigidity, supple, no JVD, thyroid normal and no carotid bruits General: trachea midline Resp normal respiratory effort, no retractions, no use of accessory muscles and clear to auscultation bilaterally Auscultation: rales bilateral and diffuse; Negative for rhonchi or wheezes Cardio regular rate, regular rhythm, S1 normal heart sound, S2 normal heart sound, no murmurs, no rub and no gallops GI normal to inspection, nondistended, normoactive bowel sounds, soft to palpation, non-tender and non-distended Extremity normal to inspection and no clubbing, cyanosis or edema Skin no rashes or lesions noted and skin turgor normal General Skin Exam: no breakdown Neuro oriented x3, CN's II-XII intact bilaterally, no focal motor deficits and no sensory deficits noted Sensorium / Orientation: awake and alert Speech: speech normal Psych thought process normal and affect normal Assessment & Plan Assessment/Plan (1) Hyperkalemia: PLAN: 1. Hyperkalemia-I will give the patient an additional dose of Kayexalate #2 acute on chronic hypoxic respiratory failure-patient's oxygen requirement this time is 6 L, she states her normal oxygen setting at home is 3 L. Patient has bilateral infiltrates on her CAT scan-the etiology of these infiltrates are unknown, pulmonary medicine will see the patient. Respiratory panel was ordered. #3 morbid obesity #4 stage IV chronic kidney disease secondary to type 2 diabetes #5 type 2 diabetes #6 essential hypertension #7 paroxysmal A. fib #8 obstructive sleep apnea-noncompliant with CPAP #9 pulmonary hypertension-patient's last echocardiogram was in 2018, it showed a right ventricular systolic pressure of 46mm, I will repeat her echocardiogram this admission Charges/Coding Visit Charges Inpatient E&M: 66189 Subs Hosp L2
--- NOTE | 2021-03-31 12:17 | ECHOD_ITS ---
Reason For Study: PHTN Procedure This was a 2D Doppler, Color Flow transthoracic echocardiogram. The study was technically difficult. Exam performed portable in patient room. Left Ventricle Normal left ventricle. The estimated ejection fraction is EF 55-60 %. Right Ventricle Moderately dilated right ventricle. Mild to moderate global right ventricular systolic dysfunction. Atria The left atrium is mildly enlarged. Mural thrombus of the left atrium. The right atrium is moderately enlarged. Mitral Valve The mitral valve is structurally normal. No prolapse or stenosis seen. Mild (1+) mitral valve insufficiency. Tricuspid Valve Normal tricuspid valve. Mild tricuspid valve insufficiency. Aortic Valve Normal aortic valve. Pulmonic Valve The pulmonic valve is not well visualized. Great Vessels Normal aortic root. The inferior vena cava is dilated. No collapse of the inferior vena cava. Pericardium/Pleural No pericardial effusion. MMode/2D Measurements & Calculations LVIDd: 5.0 cm IVSd: 1.1 cm Ao root diam: 3.4 cm LVIDs: 3.1 cm LVPWd: 1.1 cm RVDd: 4.8 cm FS: 38.0 % LAV(MOD-bp): 63.5 ml LA A4 area: 22.7 cm2 LA dimension(2D): 4.0 cm LAV(MOD-bp) Indexed: 25.1 ml/m2 LAV(MOD-sp2): 56.0 ml LAV(MOD-sp4): 65.1 ml RA A4 area: 24.2 cm2 Time Measurements MV dec time: 0.13 sec Doppler Measurements & Calculations Med Peak E' Gallo: 136.8 cm/sec Ao V2 max: 141.3 cm/sec LV V1 max: 90.6 cm/sec Ao max P.0 mmHg LV V1 max P.3 mmHg PA V2 max: 90.3 cm/sec TR max gallo: 347.9 cm/sec TR max P.4 mmHg ECHO/Echo Complete Interpretation Summary The estimated ejection fraction is EF 55-60 %. Dilated RV Dilated IVC and hepatic veins Moderate size LA thrombus Ordering Physician: Casper Lauren Referring Physician: DARLINE GALARZA Performed By: Yuly Gutierrez RDCS, RVT
[2021-03-31] MEDS: 0.9% Saline Lock 10 ML Syringe IV (14:54)
[2021-03-31] MEDS: Furosemide 40 MG/4 ML Vial IV ×2 (14:54→18:42)
--- NOTE | 2021-03-31 15:54 | CON.PCM.CC_ITS ---
Assessment & Plan Assessment/Plan (1) Right-sided congestive heart failure: (2) Secondary pulmonary arterial hypertension: (3) DIEGO (obstructive sleep apnea): (4) Morbid obesity: (5) Hypertension: (6) Hyperlipidemia: PLAN: RECOMMENDATIONS: 1. Initiate empiric diuresis 2. Reinitiate baseline BiPAP (10/08) therapy with sleep 3. Await echocardiogram 4. Recheck chemistries in the morning 5. Outpatient pulmonary follow-up IMPRESSIONS: 1. Acute on chronic hypoxic respiratory insufficiency secondary to probable cor pulmonale Clinical suspicion for slow progression to cor pulmonale secondary to noncompliance with DIEGO therapy. Long discussion with the patient that noncompliance of BiPAP therapy could be leading to nocturnal hypoxia, therefore increasing pulmonary artery pressures. Await echocardiogram, but BiPAP and diuresis should be initiated immediately. Wean oxygen as tolerated. Patient will need a walking oximetry prior to discharge. Outpatient follow-up with pulmonary will also be helpful. Previous pulmonary function test that showed severe restriction without obstructive lung disease. Steroids are likely not indicated. Low clinical suspicion for acute infectious etiology given lack of leukocytosis or fever. 2. Hyperkalemia in setting of CKD stage IV secondary to DMII Clinical suspicion for progression of kidney disease secondary to prerenal etiology secondary to poor mechanics with volume overload. Will monitor creatinine as patient receives diuresis. Diuresis may lead to better Starling forces and better cardiac output. Patient is on telemetry. 3. Diabetes mellitus type 2/hypertension/paroxysmal A. fib/morbid obesity/poor follow-up Complicates care, management, recovery and prognosis. Do not believe patient requires any steroids for underlying pulmonary disorder. This would exacerbate diabetes management. Patient is rate controlled. Daily INRs. HPI Consult Data Date of Consult: 03/31/21 HPI Narrative HPI Narrative: ELINA MEZA is a 70 F, with past medical history listed below, who presents to [facility] on 03/30/2021 secondary to generalized weakness. Patient had reported worsening over the previous 2 weeks. Patient states that this morning she did not have the strength even make it to the bathroom, so called EMS for evaluation. Patient denied any significant shortness of breath, chest pain, nausea or vomiting. Patient did not have any focal neurologic deficits and denied any headache or vision changes. Patient had noted that her blood sugars were more elevated and she recently did have some change to her insulin therapy. Patient is on Coumadin at baseline, but had not reported any significant bleeding episodes. In the ER, patient was afebrile, but significantly hypertensive at 105/82. Patient was saturating 95% on 4 L nasal cannula. Laboratory work-up was relatively unremarkable except for hyperkalemia of 6, INR of 1.9 and hemoglobin of 10.5. Patient did have an elevated bicarbonate of 29 and a BUN/creatinine of 50/2.48. Urinalysis was relatively unremarkable. A CT of the head showed no acute infarct, but chest x-ray showed bilateral patchy infiltrates. EKG showed no significant change. Patient was given labetalol and a hyperkalemia cocktail in the ER with reported improvement. Patient's Covid test was negative. Since being in the hospital, patient reports subjective improvement in overall condition. Patient reports he has been using between 4 and 6 L of oxygen at a time. Patient states her saturations will drop into the mid 80s without oxygen and is 94% on 6 L typically at home. Patient has been seen by myself in the past, but was lost to follow-up. Patient does carry diagnosis of obstructive sleep apnea, but has not been compliant. Patient does wear her supplemental oxygen with sleep. Review of systems otherwise negative from a constitutional, HEENT, respiratory, cardiovascular, GI, genitourinary, musculoskeletal, skin, neurologic, psychiatric and hematologic system unless stated above. FORMERLY [facility] Medical History Acute respiratory failure with hypoxia Allergic rhinitis Arthritis Asthma Atrial fibrillation Cellulitis of right lower extremity Chronic kidney disease (CKD) stage G1/A2, glomerular filtration rate (GFR) equal to or greater than 90 mL/min/1.73 square meter and albuminuria creatinine ratio between 30-299 mg/g COPD (chronic obstructive pulmonary disease) Depression Diabetes Diabetic neuropathy associated with type 2 diabetes mellitus Hay fever Hyperlipidemia Hypertension Hypertension Knee pain Morbid obesity On home oxygen therapy DIEGO (obstructive sleep apnea) Paroxysmal A-fib Right leg pain Right-sided congestive heart failure Secondary pulmonary arterial hypertension Sleep apnea Venous insufficiency (chronic) (peripheral) Vitamin D deficiency Home Medications gabapentin 600 mg PO TIDCM 11/08/14 [History Last Taken 07/07/20] sertraline 50 mg PO DAILY 11/08/14 [History Last Taken 07/07/20] simvastatin 20 mg PO QHS 11/08/14 [History Last Taken 07/07/20] ergocalciferol (vitamin D2) 1,250 mcg (50,000 unit) capsule 50,000 unit PO QMONTH 30 Days #1 01/13/18 [History Last Taken 06/26/20] amlodipine 5 mg PO DAILY 03/31/18 [History Last Taken 07/07/20] acetaminophen 1,000 mg PO Q8H PRN PRN tab 04/14/18 [Rx Last Taken 07/08/20] insulin glargine 100 unit/mL (3 mL) subcutaneous pen 74 unit SC HS ml 05/22/18 [History Last Taken 07/07/20] warfarin 2.5 mg tablet 2.5 mg PO DAILY 05/22/18 [History Last Taken 07/07/20] albuterol sulfate 2 inh INHALATION 4X/DAY PRN PRN 03/18/21 [History Last Taken Unknown] dexamethasone 6 mg PO DAILY@0800 03/30/21 [History Last Taken Unknown] guaifenesin 1,200 mg PO BID 03/30/21 [History Last Taken Unknown] linagliptin 5 mg PO DAILY 03/30/21 [History Last Taken Unknown] losartan 100 mg PO DAILY 03/30/21 [History Last Taken Unknown] Allergy/AdvReac Type Severity Reaction Status Date / Time aspirin Allergy Unknown Unknown Verified 03/30/21 20:31 ibuprofen Allergy Unknown Verified 03/30/21 20:31 sulfamethoxazole Allergy Unknown Verified 03/30/21 20:31 [From ] trimethoprim [From ] Allergy Unknown Verified 03/30/21 20:31 Family History Mother CAD (coronary artery disease) Hypertension Father CAD (coronary artery disease) Hypertension Other Diabetes Heart disease Surgical History History of knee replacement procedure of right knee Hx of section Social History household members: spouse, family and children housing: house current occupational status: unemployed and retired Smoking Status: Never smoker ROS ROS Narrative See HPI Physical Exam Narrative Exam somewhat limited secondary to body habitus Const alert, oriented x3 and no apparent distress General Appearance: cooperative, well kempt and well developed Nutritional Appearance: morbidly obese HEENT normocephalic, head/scalp atraumatic and moist oral mucous membranes Head and Scalp: normocephalic Eyes PERRL, EOMs intact bilaterally and conjunctivae normal Neck nuchal rigidity, supple, no JVD, thyroid normal and no carotid bruits General: trachea midline Resp normal respiratory effort, no retractions, no use of accessory muscles and clear to auscultation bilaterally Auscultation: rales bilateral and diffuse; Negative for rhonchi or wheezes Cardio regular rate, regular rhythm, S1 normal heart sound, S2 normal heart sound, no murmurs, no rub and no gallops GI normal to inspection, nondistended, normoactive bowel sounds, soft to palpation, non-tender and non-distended Extremity normal to inspection General Extremity: edema; Negative for clubbing or cyanosis Skin no rashes or lesions noted and skin turgor normal General Skin Exam: no breakdown Neuro oriented x3, CN's II-XII intact bilaterally, no focal motor deficits and no sensory deficits noted Sensorium / Orientation: awake and alert Speech: speech normal Psych thought process normal and affect normal Medical Records Data Medical Nutrition Assessment Dietitian: Nutrition Therapy Diagnosis Start: 03/31/21 14:34 Freq: Status: Active Protocol: Document 03/31/21 14:34 ZACHARY (Rec: 03/31/21 14:35 ZACHARY [id number]) Nutrition Malnutrition Evidence of Malnutrition Exists No Recommendation Dietitian Recommendations/Changes Continue cardiac 1800 calories diet. Lila Cotto RDN, [place] Lab / Micro Data Result Diagrams: 03/31/21 05:33 03/31/21 05:33 Labs: Laboratory Results - last 24 hr 03/30/21 20:30: WBC 7.4, RBC 3.56 L, Hgb 10.5 L, Hct 37.9, MCV 106.5 H, MCH 29.5, MCHC 27.7 L, RDW Std Deviation 54.3 H, RDW Coeff of Angelika 13.7, Plt Count 162, MPV 11.0, Immature Gran % (Auto) 0.400, Neut % (Auto) 66.9, Lymph % (Auto) 22.5, [place] % (Auto) 7.8, Eos % (Auto) 1.9, Baso % (Auto) 0.5, Absolute Neuts ( auto) 5.0, Absolute Lymphs (auto) 1.67, Nucleated RBC % 0 03/30/21 20:30: Sodium 140, Potassium 6.0 H*, Chloride 108 H, Carbon Dioxide 29.0, Anion Gap 3 L, BUN 50 H, Creatinine 2.48 H, Estim Creat Clear Calc 21.11, Est GFR (MDRD) Af Amer 25 L, Est GFR (MDRD) Non-Af 21 L, BUN/Creatinine Ratio 20.2 H, Glucose 236 H, Calcium 8.4 L, Total Bilirubin 0.70, AST 9 L, ALT 14, Alkaline Phosphatase 72, Troponin I High Sens 14.6, Total Protein 8.7 H, Albumin 3.3, Globulin 5.4 H, Albumin/Globulin Ratio 0.6 L 03/30/21 21:10: PT 20.6 H, INR 1.9 03/30/21 21:50: Urine Color Yellow, Urine Clarity Cloudy, Urine pH 5.0, Ur Specific [place] 1.020, Urine Protein 100 H, Urine Glucose (UA) 250 H, Urine Ketones Negative, Urine Occult Blood 50 H, Urine Nitrite Negative, Urine Bilirubin Negative, Urine Urobilinogen Normal, Ur Leukocyte Esterase 25 H, Urine RBC 5-10 SEEN, Urine WBC 0-5 SEEN, Ur Squamous Epith Cells 5-10 SEEN, Amorphous Sediment 1+, Urine Bacteria 0 SEEN, Coarse Granular Casts 0-5 SEEN, Urine Mucus 0 SEEN 03/30/21 22:10: Potassium 6.0 H* 03/30/21 23:20: COVID-19 (АНДРЕЙ) Negative 03/31/21 00:58: Sodium 141, Potassium 5.7 H, Chloride 110 H, Carbon Dioxide 28.0, Anion Gap 3 L, BUN 52 H, Creatinine 2.45 H, Estim Creat Clear Calc 22.17, Est GFR (MDRD) Af Amer 25 L, Est GFR (MDRD) Non-Af 21 L, BUN/Creatinine Ratio 21.2 H, Glucose 175 H, Calcium 8.9 03/31/21 05:33: WBC 7.7, RBC 3.52 L, Hgb 10.3 L, Hct 37.9, MCV 107.7 H, MCH 29.3, MCHC 27.2 L, RDW Std Deviation 54.2 H, RDW Coeff of [place] 13.6, Plt Count 153, MPV 10.7, Immature Gran % (Auto) 0.400, Neut % (Auto) 74.0 H, Lymph % (Auto) 17.7 L, [place] % (Auto) 6.5, Eos % (Auto) 1.0, Baso % (Auto) 0.4, Absolute Neuts (auto) 5.7, Absolute Lymphs (auto) 1.36, Nucleated RBC % 0 03/31/21 05:33: PT 21.4 H, INR 1.9 03/31/21 05:33: Sodium 140, Potassium 5.8 H, Chloride 111 H, Carbon Dioxide 28.0, Anion Gap 1 L, BUN 49 H, Creatinine 2.33 H, Estim Creat Clear Calc 23.31, Est GFR (MDRD) Af Amer 27 L, Est GFR (MDRD) Non-Af 22 L, BUN/Creatinine Ratio 21.0 H, Glucose 229 H, Calcium 8.6, Total Bilirubin 1.00, AST 9 L, ALT 13, Alkaline Phosphatase 68, Total Protein 8.1, Albumin 3.1 L, Globulin 5.0 H, Albumin/Globulin Ratio 0.6 L 03/31/21 09:02: POC Glucose 272 H 03/31/21 11:31: POC Glucose 273 H Micro: Microbiology 03/31/21 11:10 Mucosa - Nose Respiratory Panel (PCR) - Final 03/30/21 23:20 Interface Orders SARS-CoV-2 Antigen (Rapid) - Final Rhythm Strip Rhythm Strip: Sinus Rhythm Rate: 65 Ectopy: None Radiology Impression Brain CT 03/30/21 20:50 IMPRESSION: Mild atrophy and advanced periventricular white matter ischemic change. No evidence for acute bleed. If concern for acute infarct MRI recommended Electronically Signed: Claude Davis MD at 21:54 EDT , Service support , Chest X-Ray 03/30/21 21:05 IMPRESSION: Findings suggestive of Covid 19 pneumonia. Clinical correlation recommended Electronically Signed: Claude Davis MD at 22:04 EDT , Service support , Chest X-Ray 03/31/21 05:55 IMPRESSION: No change in bilateral pneumonia. Electronically Signed: Marshall Curtis MD at 8:42 EDT Tel , Service support , Chest CT 03/31/21 10:09 IMPRESSION: Bilateral pneumonia. Commonly reported imaging features of COUMADIN 19 pneumonia are present. Other processes such as influenza pneumonia and organized pneumonia, as can be seen with drug toxicity connective tissue disease, can cause a similar imaging pattern. Electronically Signed: Marshall Curtis MD at 10:27 EDT Tel , Service support , ADDENDUM: 03/31/21 1054 Charges/Coding Visit Charges Inpatient E&M: 76805 Init Hosp L3
[2021-03-31 16:26] LABS: Bedside Glucose 257 mg/dL (70-110)
[2021-03-31] MEDS: Enoxaparin 150 MG/ML Syringe SC (18:40)
[2021-03-31] MEDS: Atorvastatin Calcium 10 MG Tablet PO (21:28)
[2021-03-31 21:50] LABS: Bedside Glucose 236 mg/dL (70-110)
[2021-04-01] VITALS (9 sets, daily range): BP systolic 130–146; BP diastolic 83–102; PULSE 85–106; RESP 18–20; TEMP 36.8–37.3; O2SAT 93–95
[2021-04-01] MEDS: Nystatin Powder 15gm Bottle 1 APPLIC TOPICAL ×3 (05:17→21:01)
--- NOTE | 2021-04-01 06:06 | CPS ---
Attempted bipap with pt, 16/10 was a little strong, RT lowered pressures to 14/8 to try encourage compliance but pt is not used to bipap and only lasted 1 hour total.
[2021-04-01] MEDS: Insulin Lispro 100 UNIT/ML INSULN.PEN SC ×2 (06:26→16:54)
[2021-04-01 06:27] LABS: International Normalized Ratio 2.7
[2021-04-01 06:51] LABS: Bedside Glucose 156 mg/dL (70-110)
[2021-04-01 06:57] LABS: Anion Gap 1 (5-15); BUN 43 mg/dL (7-18); BUN/Creat Ratio 21.1 RATIO (10-20); Calcium,Total 8.3 mg/dL (8.5-10.1); Chloride 107 mmol/L (98-107); Creatinine, Serum 2.04 mg/dL (0.55-1.02); EST Glomerular Filtration Rate 26 mL/min (>60); Est Glom Filt Rate - Afr Amer 31 mL/min (>60); Estimated Creatinine Clearance 26.62 ml/min; Glucose 155 mg/dL (74-106); Potassium 3.9 mmol/L (3.5-5.1); Sodium Level 140 mmol/L (136-145)
--- NOTE | 2021-04-01 08:05 | PN.CC_ITS ---
Assessment & Plan Assessment/Plan (1) Right-sided congestive heart failure: (2) Secondary pulmonary arterial hypertension: (3) DIEGO (obstructive sleep apnea): (4) Morbid obesity: (5) Hypertension: (6) Hyperlipidemia: PLAN: RECOMMENDATIONS: 1. Continue empiric diuresis 2. Reinitiate baseline BiPAP (10/08) therapy with sleep 3. Walking oximetry prior to discharge 4. Monitor potassium for potential repletion 5. Outpatient pulmonary follow-up IMPRESSIONS: 1. Acute on chronic hypoxic respiratory insufficiency secondary to probable cor pulmonale Clinical suspicion for slow progression to cor pulmonale secondary to noncompliance with DIEGO therapy. Long discussion with the patient that noncompliance of BiPAP therapy could be leading to nocturnal hypoxia, therefore increasing pulmonary artery pressures. Patient with significant RV dysfunction, improvement in renal function with diuresis and poor compliance with DIEGO therapy show cor pulmonale as a likely etiology. Agree with scheduling Lasix twice daily. Potentially increase to every 8 tomorrow if necessary. Goal is -1 to 2 L/day. Low clinical suspicion for infectious etiology. 2. Hyperkalemia in setting of CKD stage IV secondary to DMII Resolved. Clinical suspicion for progression of kidney disease secondary to prerenal etiology secondary to poor mechanics with volume overload. Will monitor creatinine as patient receives diuresis. Diuresis may lead to better Starling forces and better cardiac output. Patient is on telemetry. 3. Diabetes mellitus type 2/hypertension/paroxysmal A. fib/morbid obesity /poor follow-up/mural thrombus Complicates care, management, recovery and prognosis. Do not believe patient requires any steroids for underlying pulmonary disorder. This would exacerbate diabetes management. Patient is rate controlled. Daily INRs. INR is therapeutic at this time. Subjective Subjective Patient did well overnight. No acute issues were reported. Patient subjectively feels slightly improved compared to previous. Patient reports she did wear BiPAP for a brief period of time but did not like it. Patient did report good diuresis from her perspective. Objective Data Objective Data Vital Signs: Vital Signs Temp Pulse Resp BP Pulse Ox 36.8 C 102 H 18 144/94 H 94 04/01/21 02:00 04/01/21 07:00 04/01/21 02:00 04/01/21 02:00 04/01/21 02:00 Oxygen Flow Rate (L/min) 6 Oxygen Delivery Method Nasal Cannula Weight: 147.8 kg Body Mass Index (BMI) 50.2 Intake & Output: Intake and Output for Last 24 Hours 03/30/21 03/31/21 04/01/21 23:59 23:59 23:59 Intake Total 1360 / 1360 Output Total 850 / 1552 1402 / 1402 Balance 510 / -192 -1402 / -1402 Medical Nutrition Assessment Dietitian: Nutrition Therapy Diagnosis Start: 03/31/21 14:34 Freq: Status: Active Protocol: Document 03/31/21 14:34 SLA (Rec: 03/31/21 14:35 SLA [id number]) Nutrition Malnutrition Evidence of Malnutrition Exists No Recommendation Dietitian Recommendations/Changes Continue cardiac 1800 calories diet. Lila Cotto RDN, LD Lab / Micro Data Result Diagrams: 03/31/21 05:33 04/01/21 05:42 Labs: Laboratory Results - last 24 hr 03/31/21 09:02: POC Glucose 272 H 03/31/21 11:31: POC Glucose 273 H 03/31/21 16:04: POC Glucose 257 H 03/31/21 21:27: POC Glucose 236 H 04/01/21 05:42: Sodium 140, Potassium 3.9, Chloride 107, Carbon Dioxide 32.0, Anion Gap 1 L, BUN 43 H, Creatinine 2.04 H, Estim Creat Clear Calc 26.62, Est GFR (MDRD) Af Amer 31 L, Est GFR (MDRD) Non-Af 26 L, BUN/Creatinine Ratio 21.1 H , Glucose 155 H, Calcium 8.3 L 04/01/21 05:42: PT 28.0 H, INR 2.7 04/01/21 06:25: POC Glucose 156 H Micro: Microbiology 03/31/21 11:10 Mucosa - Nose Respiratory Panel (PCR) - Final 03/30/21 23:20 Interface Orders SARS-CoV-2 Antigen (Rapid) - Final Radiography Diagnostic Testing: Radiology Impression Chest X-Ray 03/31/21 05:55 IMPRESSION: No change in bilateral pneumonia. Electronically Signed: Darline Curtis MD at 8:42 EDT Tel , Service support , Chest CT 03/31/21 10:09 IMPRESSION: Bilateral pneumonia. Commonly reported imaging features of COUMADIN 19 pneumonia are present. Other processes such as influenza pneumonia and organized pneumonia, as can be seen with drug toxicity connective tissue disease, can cause a similar imaging pattern. Electronically Signed: Darline Curtis MD at 10:27 EDT Tel , Service support , ADDENDUM: 03/31/21 1054 Echocardiogram 03/31/21 12:17 Interpretation Summary The estimated ejection fraction is EF 55-60 %. Dilated RV Dilated IVC and hepatic veins Moderate size LA thrombus Ordering Physician: Casper Lauren Referring Physician: DARLINE AGLARZA Performed By: Yuly Gutierrez, NIKCS, RVT Rhythm Strip Rhythm Strip: Sinus Rhythm Rate: 65 Ectopy: None Physical Exam Narrative Exam somewhat limited secondary to body habitus Const Nutritional Appearance: morbidly obese HEENT normocephalic, head/scalp atraumatic, hearing grossly normal bilaterally and external ears normal Eyes PERRL, conjunctivae normal and no scleral icterus Neck full ROM, No nuchal rigidity and No no lymphadenopathy Chest inspection of chest normal Chest: symmetrical chest wall rise Resp normal respiratory effort Auscultation: diminished lung sounds; Negative for rales, rhonchi or wheezes Cardio regular rate, regular rhythm, S1 normal heart sound, S2 normal heart sound, no murmurs, no rub and no gallops GI normal to inspection, nondistended, normoactive bowel sounds Extremity normal to inspection General Extremity: edema; Negative for clubbing or cyanosis Skin no rashes or lesions noted Neuro oriented x3, CN's II-XII intact bilaterally, moves all extremities and no focal motor deficits Psych mental status grossly normal, thought process normal, cooperative and affect normal Charges/Coding Visit Charges Inpatient E&M: 96741 Subs Hosp L2
[2021-04-01] MEDS: LINAGLIPTIN 5 MG TABLET PO (08:15)
[2021-04-01] MEDS: Gabapentin 600 MG Tablet PO ×3 (08:15→16:55)
[2021-04-01] MEDS: Sertraline 50 MG Tablet PO (08:16)
[2021-04-01] MEDS: amLODIPine 5 MG Tablet PO (08:16)
[2021-04-01] MEDS: Potassium Chloride Oral Tablet 20 MEQ PO ×2 (08:19→16:55)
[2021-04-01] MEDS: Furosemide 40 MG/4 ML Vial IV ×2 (08:19→16:56)
[2021-04-01 12:00] LABS: Bedside Glucose 157 mg/dL (70-110)
--- NOTE | 2021-04-01 12:41 | PN.HOSP_ITS ---
Subjective Subjective Patient was seen and examined today, I talked briefly with pulmonary medicine about her care, they recommended continuing IV diuresis. Patient had an echocardiogram done yesterday which showed a thrombus in her left atrium, patient's INR today was 2.7. Patient has no complaints of any fever, chills, or increased shortness of breath today. Patient's potassium today was 3.9 Objective Data Objective Data Vital Signs: Vital Signs Temp Pulse Resp BP Pulse Ox 99.1 F 94 18 146/83 H 93 04/01/21 08:00 04/01/21 08:00 04/01/21 08:00 04/01/21 08:00 04/01/21 09:44 Oxygen Flow Rate (L/min) 6 Oxygen Delivery Method Nasal Cannula Weight: 147.8 kg Body Mass Index (BMI) 50.2 Intake & Output: Intake and Output for Last 24 Hours 03/30/21 03/31/21 04/01/21 23:59 23:59 23:59 Intake Total 1360 / 1360 480 / 480 Output Total 850 / 1552 2602 / 2602 Balance 510 / -192 -2122 / -2122 Medical Nutrition Assessment Dietitian: Nutrition Therapy Diagnosis Start: 03/31/21 14:34 Freq: Status: Active Protocol: Document 03/31/21 14:34 ZACHARY (Rec: 03/31/21 14:35 ZACHARY [id number]) Nutrition Malnutrition Evidence of Malnutrition Exists No Recommendation Dietitian Recommendations/Changes Continue cardiac 1800 calories diet. Lila Cotto RDN, [place] Lab / Micro Data Result Diagrams: 03/31/21 05:33 04/01/21 05:42 Labs: Laboratory Results - last 24 hr 03/31/21 16:04: POC Glucose 257 H 03/31/21 21:27: POC Glucose 236 H 04/01/21 05:42: Sodium 140, Potassium 3.9, Chloride 107, Carbon Dioxide 32.0, Anion Gap 1 L, BUN 43 H, Creatinine 2.04 H, Estim Creat Clear Calc 26.62, Est GFR (MDRD) Af Amer 31 L, Est GFR (MDRD) Non-Af 26 L, BUN/Creatinine Ratio 21.1 H , Glucose 155 H, Calcium 8.3 L 04/01/21 05:42: PT 28.0 H, INR 2.7 04/01/21 06:25: POC Glucose 156 H 04/01/21 11:51: POC Glucose 157 H Micro: Microbiology 03/31/21 11:10 Mucosa - Nose Respiratory Panel (PCR) - Final 03/30/21 23:20 Interface Orders SARS-CoV-2 Antigen (Rapid) - Final Radiography Diagnostic Testing: Radiology Impression Echocardiogram 03/31/21 12:17 Interpretation Summary The estimated ejection fraction is EF 55-60 %. Dilated RV Dilated IVC and hepatic veins Moderate size LA thrombus Ordering Physician: Casper Lauren Referring Physician: DARLINE GALARZA Performed By: Yuly Gutierrez RDCS, RVT Rhythm Strip Rhythm Strip: Sinus Rhythm Rate: 65 Ectopy: None Physical Exam Narrative Const alert, oriented x3 and no apparent distress Constitutional Narrative: Patient is morbidly obese General Appearance: cooperative, well kempt and well developed Orientation / Consciousness: awake, oriented to person, oriented to place and oriented to time HEENT normocephalic, head/scalp atraumatic and moist oral mucous membranes Head and Scalp: normocephalic Eyes PERRL, EOMs intact bilaterally and conjunctivae normal Neck nuchal rigidity, supple, no JVD, thyroid normal and no carotid bruits General: trachea midline Resp normal respiratory effort, no retractions, no use of accessory muscles and clear to auscultation bilaterally Auscultation: rales bilateral and diffuse; Negative for rhonchi or wheezes Cardio regular rate, regular rhythm, S1 normal heart sound, S2 normal heart sound, no murmurs, no rub and no gallops GI normal to inspection, nondistended, normoactive bowel sounds, soft to palpation, non-tender and non-distended Extremity normal to inspection and no clubbing, cyanosis or edema Skin no rashes or lesions noted and skin turgor normal General Skin Exam: no breakdown Neuro oriented x3, CN's II-XII intact bilaterally, no focal motor deficits and no sensory deficits noted Sensorium / Orientation: awake and alert Speech: speech normal Psych thought process normal and affect normal Assessment & Plan Assessment/Plan (1) Hyperkalemia: PLAN: 1. Hyperkalemia-resolved at this time, BMP will be repeated tomorro w #2 acute on chronic hypoxic respiratory failure-patient's oxygen requirement this time is 6 L, again patient is on supplemental oxygen at home, she is noncompliant with BiPAP for her obstructive sleep apnea. Her O2 sat will be monitored, pulmonary medicine is participating in her care #3 morbid obesity #4 stage IV chronic kidney disease secondary to type 2 diabetes, creatinine is improved today #5 type 2 diabetes #6 essential hypertension #7 paroxysmal A. fib #8 obstructive sleep apnea-noncompliant with BiPAP #9 pulmonary hypertension #10 thrombus left atrium-patient is currently on Coumadin and is therapeutic with her INR. Charges/Coding Visit Charges Inpatient E&M: 56045 Subs Hosp L2
[2021-04-01 17:05] LABS: Bedside Glucose 179 mg/dL (70-110)
[2021-04-01] MEDS: Atorvastatin Calcium 10 MG Tablet PO (21:01)
[2021-04-01 21:06] LABS: Bedside Glucose 121 mg/dL (70-110)
[2021-04-02] VITALS (9 sets, daily range): BP systolic 128–152; BP diastolic 75–94; PULSE 83–103; RESP 18; TEMP 36.3–36.9; O2SAT 93–97
[2021-04-02] MEDS: Acetaminophen 500 MG Tablet 1000 MG PO (00:49)
--- NOTE | 2021-04-02 04:57 | CPS ---
PT declines use of bipap this evening
[2021-04-02] MEDS: Nystatin Powder 15gm Bottle 1 APPLIC TOPICAL ×3 (05:13→22:13)
[2021-04-02 07:05] LABS: Bedside Glucose 118 mg/dL (70-110)
[2021-04-02 07:06] LABS: International Normalized Ratio 3.9; Prothrombin Time (Protime)PT. 37.6 SECONDS (11.7-14.9)
[2021-04-02 07:07] LABS: Anion Gap 3 (5-15); BUN 40 mg/dL (7-18); BUN/Creat Ratio 19.5 RATIO (10-20); Calcium,Total 8.3 mg/dL (8.5-10.1); Chloride 103 mmol/L (98-107); Creatinine, Serum 2.05 mg/dL (0.55-1.02); EST Glomerular Filtration Rate 26 mL/min (>60); Est Glom Filt Rate - Afr Amer 31 mL/min (>60); Glucose 125 mg/dL (74-106); Potassium 3.3 mmol/L (3.5-5.1); Sodium Level 141 mmol/L (136-145)
--- NOTE | 2021-04-02 07:42 | PN.CC_ITS ---
Assessment & Plan Assessment/Plan (1) Right-sided congestive heart failure: (2) Secondary pulmonary arterial hypertension: (3) DIEGO (obstructive sleep apnea): (4) Morbid obesity: (5) Hypertension: (6) Hyperlipidemia: PLAN: RECOMMENDATIONS: 1. Increase diuresis and schedule potassium repletion 2. Reinitiate baseline BiPAP (10/08) therapy with sleep 3. Walking oximetry prior to discharge 4. Monitor potassium for potential repletion 5. Outpatient pulmonary follow-up IMPRESSIONS: 1. Acute on chronic hypoxic respiratory insufficiency secondary to probable cor pulmonale Clinical suspicion for slow progression to cor pulmonale secondary to noncompliance with DIEGO therapy. Long discussion with the patient that noncompli ance of BiPAP therapy could be leading to nocturnal hypoxia, therefore increasing pulmonary artery pressures. Patient with significant RV dysfunction, improvement in renal function with diuresis and poor compliance with DIEGO therapy show cor pulmonale as a likely etiology. Agree with scheduling Lasix, but will increase dosing. Goal is -1 to 2 L/day. Low clinical suspicion for infectious etiology. [place] discussion with the patient that compliance with BiPAP will be necessary to avoid repeat hospitalization and degradation following discharge. Patient appears to be contemplative at this time. 2. Hyperkalemia in setting of CKD stage IV secondary to DMII Resolved. Clinical suspicion for progression of kidney disease secondary to prerenal etiology secondary to poor mechanics with volume overload. Will monitor creatinine as patient receives diuresis. Diuresis may lead to better Starling forces and better cardiac output. Patient is on telemetry. Hypoka lemia likely secondary to diuretic therapy. 3. Diabetes mellitus type 2/hypertension/paroxysmal A. fib/morbid obesity/poor follow-up/mural thrombus Complicates care, management, recovery and prognosis. Do not believe patient requires any steroids for underlying pulmonary disorder. This would exacerbate diabetes management. Patient is rate controlled. Daily INRs. INR is therapeutic at this time. Continue to hold Coumadin. Subjective Subjective Patient did okay overnight. Patient reports subjective improvement in overall condition. Patient continues to refuse BiPAP therapy even though it is available. Patient continues to report difficulty with claustrophobia associated with noncompliance. Objective Data Objective Data Vital Signs: Vital Signs Temp Pulse Resp BP Pulse Ox 36.6 C 91 18 146/75 H 94 04/02/21 02:20 04/02/21 03:11 04/02/21 02:20 04/02/21 02:20 04/02/21 02:20 Oxygen Flow Rate (L/min) 6 Oxygen Delivery Method Nasal Cannula Weight: 144.6 kg Body Mass Index (BMI) 50.2 Intake & Output: Intake and Output for Last 24 Hours 03/31/21 04/01/21 04/02/21 23:59 23:59 23:59 Intake Total 1360 / 1360 960 / 960 120 / 120 Output Total 850 / 1552 4052 / 4052 300 / 300 Balance 510 / -192 -3092 / -3092 -180 / -180 Medical Nutrition Assessment Dietitian: Nutrition Therapy Diagnosis Start: 03/31/21 14:34 Freq: Status: Active Protocol: Document 03/31/21 14:34 ZACHARY (Rec: 03/31/21 14:35 ZACHARY [id number]) Nutrition Malnutrition Evidence of Malnutrition Exists No Recommendation Dietitian Recommendations/Changes Continue cardiac 1800 calories diet. Lila Cotto RDN, LD Lab / Micro Data Result Diagrams: 03/31/21 05:33 04/02/21 05:50 Labs: Laboratory Results - last 24 hr 04/01/21 11:51: POC Glucose 157 H 04/01/21 16:38: POC Glucose 179 H 04/01/21 20:56: POC Glucose 121 H 04/02/21 05:50: PT 37.6 H, INR 3.9 04/02/21 05:50: Sodium 141, Potassium 3.3 L, Chloride 103, Carbon Dioxide 35.0 H , Anion Gap 3 L, BUN 40 H, Creatinine 2.05 H, Estim Creat Clear Calc 26.50, Est GFR (MDRD) Af Amer 31 L, Est GFR (MDRD) Non-Af 26 L, BUN/Creatinine Ratio 19.5, Glucose 125 H, Calcium 8.3 L 04/02/21 06:57: POC Glucose 118 H Micro: Microbiology 03/31/21 11:10 Mucosa - Nose Respiratory Panel (PCR) - Final 03/30/21 23:20 Interface Orders SARS-CoV-2 Antigen (Rapid) - Final Rhythm Strip Rhythm Strip: Sinus Rhythm Rate: 65 Ectopy: None Physical Exam Narrative Exam somewhat limited secondary to body habitus Const Nutritional Appearance: morbidly obese HEENT normocephalic, head/scalp atraumatic, hearing grossly normal bilaterally and external ears normal Eyes PERRL, conjunctivae normal and no scleral icterus Neck full ROM, No nuchal rigidity and No no lymphadenopathy Chest inspection of chest normal Chest: symmetrical chest wall rise Resp normal respiratory effort Auscultation: diminished lung sounds; Negative for rales, rhonchi or wheezes Cardio regular rate, regular rhythm, S1 normal heart sound, S2 normal heart sound, no murmurs, no rub and no gallops GI normal to inspection, nondistended, normoactive bowel sounds Extremity normal to inspection General Extremity: edema; Negative for clubbing or cyanosis Skin no rashes or lesions noted Neuro oriented x3, CN's II-XII intact bilaterally, moves all extremities and no focal motor deficits Psych mental status grossly normal, thought process normal, cooperative and affect normal Charges/Coding Visit Charges Inpatient E&M: 60760 Subs Hosp L3
[2021-04-02] MEDS: Furosemide 40 MG/4 ML Vial IV ×3 (09:25→22:12)
[2021-04-02] MEDS: Potassium Chloride Oral Tablet 20 MEQ PO ×2 (09:25→16:34)
[2021-04-02] MEDS: LINAGLIPTIN 5 MG TABLET PO ×2 (09:26→09:28)
[2021-04-02] MEDS: Potassium Chloride Oral Tablet 20 MEQ 40 MEQ PO ×2 (09:26→16:34)
[2021-04-02] MEDS: Gabapentin 600 MG Tablet PO ×3 (09:28→16:34)
[2021-04-02] MEDS: amLODIPine 5 MG Tablet PO (09:28)
[2021-04-02] MEDS: Sertraline 50 MG Tablet PO (09:28)
[2021-04-02 11:55] LABS: Bedside Glucose 149 mg/dL (70-110)
[2021-04-02] MEDS: Ondansetron 4 MG/2 ML Vial IV (14:57)
--- NOTE | 2021-04-02 16:10 | PN.HOSP_ITS ---
Subjective Subjective Patient denies any shortness of breath or chest pain at rest. She does report dry sinuses with increased oxygen needs. She denies any abdominal pain, nausea, or vomiting. She notes that she was intolerant of CPAP in the outpatient setting. Objective Data Objective Data Vital Signs: Vital Signs Temp Pulse Resp BP Pulse Ox 97.3 F L 103 H 18 136/85 H 95 04/02/21 14:20 04/02/21 14:20 04/02/21 14:20 04/02/21 14:20 04/02/21 14:20 Oxygen Flow Rate (L/min) 6 Oxygen Delivery Method Nasal Cannula Weight: 318 lb 12.615 oz Body Mass Index (BMI) 50.2 Intake & Output: Intake and Output for Last 24 Hours 03/31/21 04/01/21 04/02/21 23:59 23:59 23:59 Intake Total 1360 / 1360 960 / 960 560 / 560 Output Total 850 / 1552 4052 / 4052 900 / 900 Balance 510 / -192 -3092 / -3092 -340 / -340 Lab / Micro Data Result Diagrams: 03/31/21 05:33 04/02/21 05:50 Labs: Laboratory Results - last 24 hr 04/02/21 05:50: PT 37.6 H, INR 3.9 04/02/21 05:50: Sodium 141, Potassium 3.3 L, Chloride 103, Carbon Dioxide 35.0 H , Anion Gap 3 L, BUN 40 H, Creatinine 2.05 H, Estim Creat Clear Calc 26.50, Est GFR (MDRD) Af Amer 31 L, Est GFR (MDRD) Non-Af 26 L, BUN/Creatinine Ratio 19.5, Glucose 125 H, Calcium 8.3 L 04/02/21 06:57: POC Glucose 118 H 04/02/21 11:32: POC Glucose 149 H Micro: Microbiology 03/31/21 11:10 Mucosa - Nose Respiratory Panel (PCR) - Final 03/30/21 23:20 Interface Orders SARS-CoV-2 Antigen (Rapid) - Final Rhythm Strip Rhythm Strip: Sinus Rhythm Rate: 65 Ectopy: None Physical Exam Narrative Morbid obese, significant at bedside chair with no tachypnea. She had her nasal cannula in place. She had decreased breath sounds bilaterally with no rales or wheezing. Distant, irregularly irregular heart sounds with a controlled rate. Abdomen was morbidly obese but soft and nontender with normal bowel sounds. She had 2+ pitting edema in the pretibial areas with chronic venous stasis changes. She was alert and oriented x3 with no focal motor weakness. She was interactive and engaged. Assessment & Plan Assessment/Plan (1) DIEGO (obstructive sleep apnea): (2) Morbid obesity: (3) Right-sided congestive heart failure: PLAN: 70-year-old with acute, hypercapnic respiratory failure complicated by morbid obesity with chronic cor pulmonale and untreated sleep apnea in the setting of a macrocytic anemia, hypokalemia, stage IV chronic kidney disease with uncontrolled type 2 diabetes, and hypertension. The patient will continue with noninvasive ventilation nocturnally and work on outpatient compliance. The quality assurance practice manager recommended ongoing diuresis-the Lasix was placed at 40 mg IV every 8. She will continue with supplemental potassium for her plans for diuresis and hypokalemia. I will monitor her BMP on a daily basis with her CKD and diuresis. I will send a B12 and folate in the context of her macrocytic anemia-there is no need for transfusion. She will continue with amlodipine for her hypertension-outpatient weight loss and noninvasive ventilation is appropriate. I will suspend her Coumadin with her INR of 3.9 and repeat the INR in the a.m. I will monitor her serum bicarbonate with the plans for diuresis and her respira tory acidosis on presentation. She can consider outpatient nasal pillows for her noninvasive ventilation with her primary provider. She will need a home oxygen assessment discharge-she uses 6 L at home currently. She is supratherapeutic on her INR-her Coumadin was held and this will need to be addressed daily. Her sugars are adequately controlled less than 150-I will continue her supplemental insulin scale and qhs Lantus. The patient's morbid obesity is the underlying issue for her chronic cor pulmonale and respiratory acidosis. We did discuss her history of emotional trauma-she had significant loss with her sister dying in 2005 and the of her grandson. She was willing to consider cognitive behavioral therapy and did recognize her dietary noncompliance. Charges/Coding Visit Charges Inpatient E&M: 29622 Subs Hosp L2
[2021-04-02 16:50] LABS: Bedside Glucose 120 mg/dL (70-110)
[2021-04-02] MEDS: 0.9% Saline Lock 10 ML Syringe IV (22:12)
[2021-04-02] MEDS: Atorvastatin Calcium 10 MG Tablet PO (22:12)
[2021-04-02] MEDS: Insulin Lispro 100 UNIT/ML INSULN.PEN SC (22:14)
[2021-04-02 22:26] LABS: Bedside Glucose 167 mg/dL (70-110)
[2021-04-03] VITALS (13 sets, daily range): BP systolic 117–137; BP diastolic 76–99; PULSE 71–101; RESP 12–20; TEMP 36.5–36.9; O2SAT 84–99
[2021-04-03] MEDS: Furosemide 40 MG/4 ML Vial IV (05:24)
[2021-04-03] MEDS: 0.9% Saline Lock 10 ML Syringe IV (05:24)
[2021-04-03] MEDS: Nystatin Powder 15gm Bottle 1 APPLIC TOPICAL ×3 (05:24→23:23)
[2021-04-03 07:00] LABS: International Normalized Ratio 3.5; Prothrombin Time (Protime)PT. 34.3 SECONDS (11.7-14.9)
[2021-04-03 07:06] LABS: Bedside Glucose 51 mg/dL (70-110)
[2021-04-03 07:06] LABS: Bedside Glucose 71 mg/dL (70-110)
[2021-04-03 08:21] LABS: Vitamin B12 483 pg/mL (211-911)
[2021-04-03 08:55] LABS: BUN 41 mg/dL (7-18); Creatinine, Serum 2.22 mg/dL (0.55-1.02); Glucose 55 mg/dL (74-106)
[2021-04-03 08:56] LABS: Anion Gap 2 (5-15); BUN/Creat Ratio 18.5 RATIO (10-20); Calcium,Total 8.5 mg/dL (8.5-10.1); Chloride 104 mmol/L (98-107); EST Glomerular Filtration Rate 23 mL/min (>60); Est Glom Filt Rate - Afr Amer 28 mL/min (>60); Estimated Creatinine Clearance 24.47 ml/min; Potassium 4.3 mmol/L (3.5-5.1); Sodium Level 142 mmol/L (136-145)
[2021-04-03] MEDS: Potassium Chloride Oral Tablet 20 MEQ 40 MEQ PO ×2 (09:15→17:39)
[2021-04-03] MEDS: Sertraline 50 MG Tablet PO (09:15)
[2021-04-03] MEDS: amLODIPine 5 MG Tablet PO (09:15)
[2021-04-03] MEDS: Gabapentin 600 MG Tablet PO ×3 (09:15→17:39)
[2021-04-03 11:30] LABS: Bedside Glucose 128 mg/dL (70-110)
--- NOTE | 2021-04-03 11:50 | CASEMGMT ---
Palliative screening tool completed for [facility]. Patient meets criteria for palliative consult. GORGE ZIEGLER updated hospitalist, no referral at this time.
--- NOTE | 2021-04-03 12:57 | PN.CC_ITS ---
Assessment & Plan Assessment/Plan (1) Acute respiratory failure with hypoxia: PLAN: RECOMMENDATIONS: 1. Continue diuretic therapy as tolerated by hemodynamics and renal function. 2. Recommended. Use of BiPAP therapy at a minimum on a nightly basis. 3. Wean supplemental oxygen to maintain saturations at or above 90%. 4. Encourage incentive spirometer use and mobilize patient as tolerated. 5. Continue Coumadin and check INR daily. IMPRESSIONS: 1. Acute on chronic hypoxic respiratory insufficiency secondary to probable cor pulmonale Clinical suspicion for slow progression to cor pulmonale secondary to noncompliance with DIEGO therapy and dietary indiscretions. Plan to continue supportive measures with IV diuretic therapy as tolerated by hemodynamics and renal function. Continue supplemental oxygen to maintain saturations at or above 90%. Strongly recommend BiPAP utilization, at a minimum, on a nightly basis. 2. Diabetes mellitus type 2/hypertension/paroxysmal A. fib/morbid obesity/poor follow-up/mural thrombus Complicates care, management, recovery and prognosis. Continue systemic anticoa gulation with Coumadin. This note was generated with [employer] dictation software. It may contain incorrect words, spelling, and punctuation that were not noted in checking the note before signing. Subjective Subjective The patient was seen and examined at the bedside this morning. Events from the last 24 hours have been reviewed. The patient is currently afebrile, hemodynamically stable and maintaining appropriate oxygen saturations on 6 L/min via nasal cannula. The patient is currently documented to be overall net -3.7 L for the hospital admission. Objective Data Objective Data The patient's most recent lab work, culture data and imaging studies have all been personally reviewed. Surface echocardiogram revealed an ejection fraction of 55 to 60%. The RV was noted to be moderately dilated with mild to moderate global RV systolic dysfunction. Vital Signs: Vital Signs Temp Pulse Resp BP Pulse Ox 98.3 F 101 H 16 137/76 H 85 04/03/21 09:13 04/03/21 09:13 04/03/21 09:13 04/03/21 09:13 04/03/21 09:29 Oxygen Flow Rate (L/min) [ 6 AMBULATING with Oxygen #3] Oxygen Flow Rate (L/min) [ 4 AMBULATING with Oxygen #2] Oxygen Flow Rate (L/min) [ 2 AMBULATING with Oxygen #1] Oxygen Flow Rate (L/min) [At 0 REST on Room Air] Oxygen Flow Rate (L/min) 6 Oxygen Delivery Method Nasal Cannula Weight: 143.5 kg Body Mass Index (BMI) 50.2 Intake & Output: Intake and Output for Last 24 Hours 04/01/21 04/02/21 04/03/21 23:59 23:59 23:59 Intake Total 960 / 960 1020 / 1020 360 / 360 Output Total 4052 / 4052 2050 / 2050 550 / 550 Balance -3092 / -3092 -1030 / -1030 -190 / -190 Medical Nutrition Assessment Dietitian: Nutrition Therapy Diagnosis Start: 03/31/21 1 4:34 Freq: Status: Active Protocol: Document 03/31/21 14:34 ZACHARY (Rec: 03/31/21 14:35 SLA [id number]) Nutrition Malnutrition Evidence of Malnutrition Exists No Recommendation Dietitian Recommendations/Changes Continue cardiac 1800 calories diet. Lila Cotto RDN, [place] Lab / Micro Data Attestation: I reviewed the patient's lab results. Result Diagrams: 04/04/21 06:00 04/04/21 06:00 Labs: Laboratory Results - last 24 hr 04/02/21 05:50: Folate 6.40 04/02/21 16:31: POC Glucose 120 H 04/02/21 22:12: POC Glucose 167 H 04/03/21 05:57: PT 34.3 H, INR 3.5 04/03/21 05:57: Vitamin B12 483 04/03/21 05:57: Sodium 142, Potassium 4.3, Chloride 104, Carbon Dioxide 36.0 H, Anion Gap 2 L, BUN 41 H, Creatinine 2.22 H, Estim Creat Clear Calc 24.47, Est GFR (MDRD) Af Amer 28 L, Est GFR (MDRD) Non-Af 23 L, BUN/Creatinine Ratio 18.5, Glucose 55 L, Calcium 8.5 04/03/21 06:32: POC Glucose 51 L 04/03/21 06:57: POC Glucose 71 04/03/21 11:22: POC Glucose 128 H Micro: Microbiology 03/31/21 11:10 Mucosa - Nose Respiratory Panel (PCR) - Final 03/30/21 23:20 Interface Orders SARS-CoV-2 Antigen (Rapid) - Final Rhythm Strip Rhythm Strip: Sinus Rhythm Rate: 65 Ectopy: None Physical Exam Const alert and no apparent distress Constitutional Narrative: Sitting in bedside recliner. General Appearance: cooperative Nutritional Appearance: morbidly obese HEENT normocephalic and head/scalp atraumatic Eyes PERRL and EOMs intact bilaterally Neck supple General: trachea midline Resp Auscultation: diminished lung sounds; Negative for rales, rhonchi or wheezes Cardio regular rate and regular rhythm GI normal to inspection, nondistended, normoactive bowel sounds Extremity General Extremity: edema bilateral lower extremity; Negative for clubbing Skin no rashes or lesions noted Neuro CN's II-XII intact bilaterally and no focal motor deficits Psych cooperative and affect normal Charges/Coding Visit Charges Inpatient E&M: 46170 Subs Hosp L2
--- NOTE | 2021-04-03 14:36 | PN.HOSP_ITS ---
Documented by User: Isaac ROLLINS 04/03/21 14:47 Subjective Subjective Patient is a 70-year-old female comfortably resting in a chair, alert and oriented x3. Patient reports improvement of her shortness of breath from admission. Denies chest pain, shortness of breath, palpitations, hemoptysis, sputum production, fever, chills, N/V/D. Objective Data Objective Data Vital Signs: Vital Signs Temp Pulse Resp BP Pulse Ox 98.4 F 71 16 122/79 H 96 04/03/21 14:32 04/03/21 14:32 04/03/21 14:32 04/03/21 14:32 04/03/21 14:32 Oxygen Flow Rate (L/min) [ 6 AMBULATING with Oxygen #3] Oxygen Flow Rate (L/min) [ 4 AMBULATING with Oxygen #2] Oxygen Flow Rate (L/min) [ 2 AMBULATING with Oxygen #1] Oxygen Flow Rate (L/min) [At 0 REST on Room Air] Oxygen Flow Rate (L/min) 6 Oxygen Delivery Method Nasal Cannula Weight: 316 lb 5.813 oz Body Mass Index (BMI) 50.2 Intake & Output: Intake and Output for Last 24 Hours 04/01/21 04/02/21 04/03/21 23:59 23:59 23:59 Intake Total 960 / 960 1020 / 1020 360 / 360 Output Total 4052 / 4052 2050 / 2050 550 / 550 Balance -3092 / -3092 -1030 / -1030 -190 / -190 Medical Nutrition Assessment Dietitian: Nutrition Therapy Diagnosis Start: 03/31/21 14:34 Freq: Status: Active Protocol: Document 03/31/21 14:34 ZACHARY (Rec: 03/31/21 14:35 ZACHARY [id number]) Nutrition Malnutrition Evidence of Malnutrition Exists No Recommendation Dietitian Recommendations/Changes Continue cardiac 1800 calories diet. Lila Cotto RDN, LD Lab / Micro Data Result Diagrams: 03/31/21 05:33 04/03/21 05:57 Labs: Laboratory Results - last 24 hr 04/02/21 05:50: Folate 6.40 04/02/21 16:31: POC Glucose 120 H 04/02/21 22:12: POC Glucose 167 H 04/03/21 05:57: PT 34.3 H, INR 3.5 04/03/21 05:57: Vitamin B12 483 04/03/21 05:57: Sodium 142, Potassium 4.3, Chloride 104, Carbon Dioxide 36.0 H, Anion Gap 2 L, BUN 41 H, Creatinine 2.22 H, Estim Creat Clear Calc 24.47, Est GFR (MDRD) Af Amer 28 L, Est GFR (MDRD) Non-Af 23 L, BUN/Creatinine Ratio 18.5, Glucose 55 L, Calcium 8.5 04/03/21 06:32: POC Glucose 51 L 04/03/21 06:57: POC Glucose 71 04/03/21 11:22: POC Glucose 128 H Micro: Microbiology 03/31/21 11:10 Mucosa - Nose Respiratory Panel (PCR) - Final 03/30/21 23:20 Interface Orders SARS-CoV-2 Antigen (Rapid) - Final Rhythm Strip Rhythm Strip: Sinus Rhythm Rate: 65 Ectopy: None Physical Exam Const alert, oriented x3 and no apparent distress HEENT head/scalp atraumatic and moist oral mucous membranes Head and Scalp: normocephalic Eyes EOMs intact bilaterally Neck no lymphadenopathy, supple and no JVD Resp normal respiratory effort and normal air movement Resp Narrative: Currently satting 96% on 6 L. Effort and Inspection: labored Auscultation: diminished lung sounds Cardio regular rate, regular rhythm, no murmurs and no JVD GI normal to inspection, nondistended, normoactive bowel sounds, soft to palpation and non-tender Extremity normal to inspection, full ROM and no clubbing, cyanosis or edema Skin no rashes or lesions noted, no wounds and skin turgor normal Neuro CN's II-XII intact bilaterally Psych affect normal Assessment & Plan Assessment/Plan (1) DIEGO (obstructive sleep apnea): (2) Diabetic neuropathy associated with type 2 diabetes mellitus: (3) Cor pulmonale: (4) Right-sided congestive heart failure: PLAN: Day 4: See subjective. Disposition: Patient to be discharged home when medically ready, no home health care needs or additional therapies identified. 1) acute on chronic hypoxic respiratory insufficiency secondary to probable cor pulmonale Currently satting 96% on 6 L via nasal cannula, home oxygen needs vary between 4 to 6 L. Pulmonology following and recommend continue diuresis and supplemental oxygen as needed. Plan: Lasix transition from IV to 40 mg p.o. twice daily, BiPAP use encouraged. 2) DM2 Continue home diabetic regimen 3) ESPERANZA Creatinine currently 2.22, elevated from yesterday. Plan; continue to monitor BMP, diuretics decreased as above. DVT prophylaxis - warfarin Patient seen by Isaac Harris PA-C, under the supervision of Dr. Shaffer. Documented by User: Dr. Geo Shaffer MD 04/03/21 16:44 Objective Data Lab / Micro Data Result Diagrams: 03/31/21 05:33 04/03/21 05:57 Assessment & Plan Addt'l Comments This patient was seen in conjunction with Isaac Harris PA-C. I have independently interviewed and examined the patient and reviewed pertinent histo rical, laboratory, and other data. Please refer to Isaac Harris PA-C's note for details of this patient's presentation, findings, and recommendations. I have reviewed Isaac Harris PA-C's note and concur with documented findings. In brief, patient is a 70 old female with multiple comorbidities admitted with progressive shortness of breath and assessment of acute hypoxic respiratory failure secondary to congestive heart failure with preserved ejection fraction made admitted to monitored bed for further management Physical Examination: GENERAL: cooperative HEENT: Atraumatic; EYES; Anicteric, Normal Conjunctiva NECK; supple, normal thyroid, RESPIRATORY: Diminished to auscultation CARDIOVASCULAR: Regular S1 S2, GI: soft, normoactive bowel sounds, PSYCH; Flat affect Assessment: 1. Acute hypoxic respiratory failure 2. Cor pulmonale 3. Acute congestive heart failure with preserved ejection fraction 4. Obesity with BMI of 48.1 5. Diabetes mellitus type 2 6. History of mural thrombus 7. Paroxysmal A. fib 8. Chronic kidney disease stage IV 9. Obstructive sleep apnea 10. Mild intermittent asthma 11. Essential hypertension Recommendations: 1. I have discussed the results of my overview and impressions with the patient 2. Options for management were reviewed Charges/Coding Visit Charges Inpatient E&M: 58791 Subs Hosp L3
[2021-04-03] MEDS: Furosemide 40 MG Tablet PO (17:39)
[2021-04-03 18:58] LABS: Bedside Glucose 146 mg/dL (70-110)
[2021-04-03] MEDS: Atorvastatin Calcium 10 MG Tablet PO (23:21)
[2021-04-03] MEDS: Insulin Lispro 100 UNIT/ML INSULN.PEN SC (23:22)
[2021-04-03 23:36] LABS: Bedside Glucose 187 mg/dL (70-110)
[2021-04-04] VITALS (7 sets, daily range): BP systolic 125–129; BP diastolic 75–82; PULSE 90–104; RESP 16–18; TEMP 36.1–37; O2SAT 84–95
[2021-04-04] MEDS: Nystatin Powder 15gm Bottle 1 APPLIC TOPICAL (06:30)
[2021-04-04 06:39] LABS: Absolute Lymphocyte Count 1.78 X10^3/uL (0.83-4.51); Absolute Neutrophil Count 3.9 X10^3/uL (2.0-7.7); Basophil# 0.03 X10^3/uL; Basophil% 0.5 % (0-1); Eosinophil# 0.16 X10^3/uL; Eosinophils% 2.5 % (0-5); Hematocrit 34.7 % (37-47); Hemoglobin 9.9 g/dL (12.0-15.0); Lymphocyte # 1.78 X10^3/ul (0.83-4.51); Lymphocyte % 27.5 % (19-41); Mean Corp Hgb Conc 28.5 g/dL (32-36); Mean Corpuscular Hgb 29.5 pg (27.0-32.0); Mean Corpuscular Volume 103.3 fL (81-99); Mean Platelet Vol. 11.4 fl (6.2-12.0); Monocyte# 0.57 X10^3/uL; Monocyte% 8.8 % (0-10); NRBC Flagged by Analyzer 0 % (0-5); Neutrophil # 3.92 X10^3/uL (2.7-7.7); Neutrophil % 60.5 % (47-70); Platelet Count 129 K/mm3 (150-450); RBC Distribution Width CV 13.3 % (11.6-14.6); Red Blood Count 3.36 M/mm3 (4.2-5.4); White Blood Count 6.5 K/mm3 (4.4-11.0)
[2021-04-04 06:59] LABS: Anion Gap 3 (5-15); BUN 49 mg/dL (7-18); BUN/Creat Ratio 20.2 RATIO (10-20); Calcium,Total 8.2 mg/dL (8.5-10.1); Chloride 103 mmol/L (98-107); Creatinine, Serum 2.43 mg/dL (0.55-1.02); EST Glomerular Filtration Rate 21 mL/min (>60); Est Glom Filt Rate - Afr Amer 25 mL/min (>60); Estimated Creatinine Clearance 22.35 ml/min; Glucose 63 mg/dL (74-106); Potassium 4.4 mmol/L (3.5-5.1); Sodium Level 140 mmol/L (136-145)
[2021-04-04 07:05] LABS: Bedside Glucose 72 mg/dL (70-110)
[2021-04-04 07:05] LABS: Bedside Glucose 63 mg/dL (70-110)
[2021-04-04] MEDS: Potassium Chloride Oral Tablet 20 MEQ 40 MEQ PO (08:31)
[2021-04-04] MEDS: Gabapentin 600 MG Tablet PO ×2 (08:31→11:23)
[2021-04-04] MEDS: Sertraline 50 MG Tablet PO (10:00)
[2021-04-04] MEDS: LINAGLIPTIN 5 MG TABLET PO (10:00)
[2021-04-04] MEDS: amLODIPine 5 MG Tablet PO (10:00)
[2021-04-04] MEDS: Furosemide 40 MG Tablet PO (10:00)
[2021-04-04] MEDS: Acetaminophen 500 MG Tablet 1000 MG PO (10:02)
--- NOTE | 2021-04-04 10:58 | DCINST_ITS ---
Discharge Instructions Diet Discharge Diet: No restrictions Activity Discharge Activity: Return to Normal Activity Weight Bearing Status: Weight bearing as tolerated Dressing / Incision Call your doctor if you observe: Fever of 101 or Higher, Numbness or Tingling, Shortness of breath, Dizziness, Chest pain, Increased palpitations (irregular heartbeat) and Calf discomfort Follow Up Care Please Follow Up With: Primary care provider When: Within the next two weeks. Test Results: Test results from this visit will be discussed in further detail at your follow-up appointment, if applicable. Discharge Plan Admission Admit Date/Time: 03/30/21 23:11 Primary Reason for Your Visit: Shortness of breath secondary to cor pulmonale Attending Provider: Geo Shaffer Primary Care Provider: Marshall Baltazar NP Consulting Providers: Carlos Campos ; Patrick Caldwell ; Marion Guzmán VICE PRESIDENT OF ENGINEERING Discharge Orders/Prescriptions Prescriptions: New furosemide [Lasix] 40 mg tablet 40 mg PO BID Qty: 10 RF: 0 Continued ergocalciferol (vitamin D2) 50,000 unit capsule 50,000 unit PO QMONTH 30 Days Qty: 1 RF: 0 warfarin 2.5 mg tablet 2.5 mg PO DAILY RF: 0 Lantus Solostar U-100 Insulin 100 unit/mL (3 mL) insulin pen 74 unit SC HS RF: 0 gabapentin 600 MG tablet 600 mg PO TIDCM RF: 0 simvastatin 20 MG tablet 20 mg PO QHS RF: 0 sertraline 50 MG tablet 50 mg PO DAILY RF: 0 amlodipine 5 MG tablet 5 mg PO DAILY RF: 0 acetaminophen 500 MG tablet 1,000 mg PO Q8H PRN PRN (Reason: Mild Pain (-11/02)) RF: 0 albuterol sulfate 1 PUFF HFA aerosol inhaler 2 inh INHALATION 4X/DAY PRN PRN (Reason: SOB) RF: 0 guaifenesin 1,200 MG tablet extended release 12hr 1,200 mg PO BID RF: 0 linagliptin 5 mg tablet 5 mg PO DAILY RF: 0 Held losartan 100 MG tablet 100 mg PO DAILY RF: 0 Hold Instructions: Resume on 04/18/21. Hold until follow up with Primary care physician Discontinued dexamethasone 2 MG tablet 6 mg PO DAILY@0800 RF: 0 Referrals / Follow Up: Carlos Campos MD [STAFF PHYSICIAN] - Within 2 Weeks Diogo,Sara, DO [STAFF PHYSICIAN] - Within 2 Weeks Marshall Baltazar VICE PRESIDENT OF ENGINEERING, VICE PRESIDENT OF ENGINEERING-C [Primary Care Provider] - Within 2 Weeks Disposition Disposition (needs filled in before D/C Order can be placed): Home, Self Care
--- NOTE | 2021-04-04 11:10 | CASEMGMT ---
Addendum entered by Monika Neil 04/04/21 13:26: Per Pinky PENNINGTON, pt qualifies for 4L at rest and 6L with exertion at this time. New order faxed to [facility] and call to Preeti at [facility] to notify of new order, voices understanding. Truman PENNINGTON CM Original Note: Per Preeti at [facility], pt's order is for 2Lnc continuous. Pinky PENNINGTON updated and aware to test pt on 2L nc at rest and with ambulation. This RN CM to room and pt updated, voices understanding. Pt declines need for any further HHC/OP therapy and states plan is to go home with family. Pt voices no further questions/concerns/needs. Truman PENNINGTON CM
[2021-04-04] MEDS: Insulin Lispro 100 UNIT/ML INSULN.PEN SC (11:23)
[2021-04-04 11:41] LABS: Bedside Glucose 192 mg/dL (70-110)
--- NOTE | 2021-04-04 11:49 | DS.PCM_ITS ---
Documented by User: Isaac ROLLINS 04/04/21 11:55 Providers Date of Admission: 03/30/21 Primary Care Physician: Marshall Baltazar, CHIVO-C Consultations 03/31/21 09:46 Consult: Academic Support Assistant / Pulmonary Medicine Routine Consulting Provider: Pulmonary Medicine lay Mcdonnell Reason for Consult: respiratory failure EMERGENT Consult: No MD Notified: Yes Date Notified: 03/31/21 Time Notified: 09:49 Method of Notification: Verbal Reason For Visit: HYPERKALEMIA, POSSIBLE COVID Diagnosis Discharge Diagnosis (1) DIEGO (obstructive sleep apnea): Status: Chronic Code(s): G47.33 - Obstructive sleep apnea (adult) (pediatric) (2) Diabetic neuropathy associated with type 2 diabetes mellitus: Status: Chronic Code(s): E11.40 - Type 2 diabetes mellitus with diabetic neuropathy, unspecified (3) Cor pulmonale: Status: Acute Code(s): I27.81 - Cor pulmonale (chronic) (4) Right-sided congestive heart failure: Status: Chronic Code(s): I50.810 - Right heart failure, unspecified Medications at Discharge Home Medications gabapentin 600 mg PO TIDCM 11/08/14 sertraline 50 mg PO DAILY 11/08/14 simvastatin 20 mg PO QHS 11/08/14 ergocalciferol (vitamin D2) 1,250 mcg (50,000 unit) capsule 50,000 unit PO QMONTH 30 Days #1 01/13/18 amlodipine 5 mg PO DAILY 03/31/18 acetaminophen 1,000 mg PO Q8H PRN PRN tab 04/14/18 insulin glargine 100 unit/mL (3 mL) subcutaneous pen 74 unit SC HS ml 05/22/18 warfarin 2.5 mg tablet 2.5 mg PO DAILY 05/22/18 albuterol sulfate 2 inh INHALATION 4X/DAY PRN PRN 03/18/21 guaifenesin 1,200 mg PO BID 03/30/21 linagliptin 5 mg PO DAILY 03/30/21 losartan 100 mg PO DAILY 03/30/21 furosemide [Lasix] 40 mg PO BID #10 tab 04/04/21 Hospital Course Procedures Transthoracic echo Summary of Care Provided Minutes Spent on Discharge: 35 Hospital Course: Disposition: Patient to be discharged home when medically ready, no home health care needs or additional therapies identified. 1) acute on chronic hypoxic respiratory insufficiency secondary to probable cor pulmonale Currently satting 96% on 6 L via nasal cannula, home oxygen needs vary between 4 to 6 L. Pulmonology following and recommend continue diuresis and supplemental oxygen as needed. Plan: Continue Lasix 40 mg PO BID x 5 days, home oxygen prescription increased due to oxygenation needs, follow-up with pulmonology, nephrology and primary care provider within the next 2 weeks. 2) DM2 Continue home diabetic regimen 3) ESPERANZA Creatinine currently 2.4, baseline is around 2. Plan; continue diuretics per nephrology, follow-up with nephrology within the next 2 weeks. Patient seen by Isaac Harris PA-C, under the supervision of Dr. Shaffer. Physical Exam Narrative Patient is a 70-year-old female comfortably resting in bed, alert and oriented x3. Patient reports resolution of her shortness of breath from admission. Denies chest pain, shortness of breath, palpitations, hemoptysis, sputum production, fever, chills, N/V/D. Const alert, oriented x3 and no apparent distress Nutritional Appearance: morbidly obese HEENT normocephalic, head/scalp atraumatic and hearing grossly normal bilaterally Eyes PERRL, EOMs intact bilaterally and conjunctivae normal Neck no lymphadenopathy, supple and no JVD Resp normal respiratory effort, no retractions and no use of accessory muscles Auscultation: diminished lung sounds Cardio regular rate, regular rhythm, no murmurs and no JVD GI normal to inspection, nondistended, normoactive bowel sounds, soft to palpation and non-tender Extremity normal to inspection, full ROM and no clubbing, cyanosis or edema Skin no rashes or lesions noted, no wounds and skin turgor normal Neuro CN's II-XII intact bilaterally Psych affect normal Medical Records Data Medical Nutrition Assessment Dietitian: Nutrition Therapy Diagnosis Start: 03/31/21 14:34 Freq: Status: Active Protocol: Document 03/31/21 14:34 ZACHARY (Rec: 03/31/21 14:35 ZACHARY [id number]) Nutrition Malnutrition Evidence of Malnutrition Exists No Recommendation Dietitian Recommendations/Changes Continue cardiac 1800 calories diet. Lila Cotto RDN, LD Weight / BMI Weight Weight: 316 lb 9.341 oz Body Mass Index (BMI) 50.2 ABG / Lab / Microbiology Data Result Diagrams: 04/04/21 06:00 04/04/21 06:00 Laboratory: Laboratory Results - last 24 hr 04/03/21 17:30: POC Glucose 146 H 04/03/21 23:18: POC Glucose 187 H 04/04/21 06:00: WBC 6.5, RBC 3.36 L, Hgb 9.9 L, Hct 34.7 L, MCV 103.3 H, MCH 29.5, MCHC 28.5 L, RDW Std Deviation 51.0 H, RDW Coeff of Angelika 13.3, Plt Count 129 L, MPV 11.4, Immature Gran % (Auto) 0.200, Neut % (Auto) 60.5, Lymph % (Auto) 27.5, Mcdonald % (Auto) 8.8, Eos % (Auto) 2.5, Baso % (Auto) 0.5, Absolute Neuts (auto) 3.9, Absolute Lymphs (auto) 1.78, Nucleated RBC % 0 04/04/21 06:00: Sodium 140, Potassium 4.4, Chloride 103, Carbon Dioxide 34.0 H, Anion Gap 3 L, BUN 49 H, Creatinine 2.43 H, Estim Creat Clear Calc 22.35, Est GFR (MDRD) Af Amer 25 L, Est GFR (MDRD) Non-Af 21 L, BUN/Creatinine Ratio 20.2 H , Glucose 63 L, Calcium 8.2 L 04/04/21 06:27: POC Glucose 63 L 04/04/21 06:58: POC Glucose 72 04/04/21 11:21: POC Glucose 192 H Microbiology: Microbiology 03/31/21 11:10 Mucosa - Nose Respiratory Panel (PCR) - Final 03/30/21 23:20 Interface Orders SARS-CoV-2 Antigen (Rapid) - Final D/C Instructions Discharge Diet: No restrictions Weight Bearing Status: Weight bearing as tolerated Call your doctor if you observe: Fever of 101 or Higher, Numbness or Tingling, Shortness of breath, Dizziness, Chest pain, Increased palpitations (irregular he artbeat) and Calf discomfort Please Follow Up With: Primary care provider When: Within the next two weeks. Meaningful Use Info Meaningful Use Diagnoses (Choose all that apply): None applicable Discharge Plan Admission Admit Date/Time: 03/30/21 23:11 Primary Reason for Your Visit: Shortness of breath secondary to cor pulmonale Attending Provider: Geo Shaffer Primary Care Provider: Marshall Baltazar CASINO CHANGE ATTENDANT Consulting Providers: Carlos Campos ; Patrick Caldwell ; Marion Guzmán NP Discharge Orders/Prescriptions Prescriptions: New furosemide [Lasix] 40 mg tablet 40 mg PO BID Qty: 10 RF: 0 Continued ergocalciferol (vitamin D2) 50,000 unit capsule 50,000 unit PO QMONTH 30 Days Qty: 1 RF: 0 warfarin 2.5 mg tablet 2.5 mg PO DAILY RF: 0 Lantus Solostar U-100 Insulin 100 unit/mL (3 mL) insulin pen 74 unit SC HS RF: 0 gabapentin 600 MG tablet 600 mg PO TIDCM RF: 0 simvastatin 20 MG tablet 20 mg PO QHS RF: 0 sertraline 50 MG tablet 50 mg PO DAILY RF: 0 amlodipine 5 MG tablet 5 mg PO DAILY RF: 0 acetaminophen 500 MG tablet 1,000 mg PO Q8H PRN PRN (Reason: Mild Pain (-11/02)) RF: 0 albuterol sulfate 1 PUFF HFA aerosol inhaler 2 inh INHALATION 4X/DAY PRN PRN (Reason: SOB) RF: 0 guaifenesin 1,200 MG tablet extended release 12hr 1,200 mg PO BID RF: 0 linagliptin 5 mg tablet 5 mg PO DAILY RF: 0 Held losartan 100 MG tablet 100 mg PO DAILY RF: 0 Hold Instructions: Resume on 04/18/21. Hold until follow up with Primary care physician Discontinued dexamethasone 2 MG tablet 6 mg PO DAILY@0800 RF: 0 Referrals / Follow Up: Carlos Campos MD [STAFF PHYSICIAN] - Within 2 Weeks (Please call to set up an appointment. ) Sara Lind DO [STAFF PHYSICIAN] - 04/25/21 1:00 pm Marshall Baltazar CASINO CHANGE ATTENDANT, CASINO CHANGE ATTENDANT-C [Primary Care Provider] - 04/18/21 1:20 pm Disposition Disposition (needs filled in before D/C Order can be placed): Home, Self Care Documented by User: Dr. Geo Shaffer MD 04/04/21 12:52 Providers Date of Admission: 03/30/21 Reason For Visit: HYPERKALEMIA, POSSIBLE COVID Medications at Discharge Home Medications gabapentin 600 mg PO TIDCM 11/08/14 sertraline 50 mg PO DAILY 11/08/14 simvastatin 20 mg PO QHS 11/08/14 ergocalciferol (vitamin D2) 1,250 mcg (50,000 unit) capsule 50,000 unit PO QM ONTH 30 Days #1 01/13/18 amlodipine 5 mg PO DAILY 03/31/18 acetaminophen 1,000 mg PO Q8H PRN PRN tab 04/14/18 insulin glargine 100 unit/mL (3 mL) subcutaneous pen 74 unit SC HS ml 05/22/18 warfarin 2.5 mg tablet 2.5 mg PO DAILY 05/22/18 albuterol sulfate 2 inh INHALATION 4X/DAY PRN PRN 03/18/21 guaifenesin 1,200 mg PO BID 03/30/21 linagliptin 5 mg PO DAILY 03/30/21 losartan 100 mg PO DAILY 03/30/21 furosemide [Lasix] 40 mg PO BID #10 tab 04/04/21 Hospital Course Operations None Summary of Care Provided Hospital Course: This patient was seen in conjunction with Isaac Harris PA-C. I have independently interviewed and examined the patient and reviewed pertinent historical, laboratory, and other data. Please refer to Isaac Harris PA-C's note for details of this patient's presentation, findings, and recommendations. I have reviewed Isaac Harris PA-C's note and concur with documented findings. In brief, patient is a 70 old female with multiple comorbidities admitted with progressive shortness of breath and assessment of acute hypoxic respiratory failure secondary to congestive heart failure with preserved ejection fraction made admitted to monitored bed for further management Assessment: 1. Acute hypoxic respiratory failure 2. Cor pulmonale 3. Acute congestive heart failure with preserved ejection fraction 4. Obesity with BMI of 48.1 5. Diabetes mellitus type 2 6. History of mural thrombus 7. Paroxysmal A. fib 8. Chronic kidney disease stage IV 9. Obstructive sleep apnea 10. Mild intermittent asthma 11. Essential hypertension Hospital course as documented above ABG / Lab / Microbiology Data Result Diagrams: 04/04/21 06:00 04/04/21 06:00 Discharge Plan Admission Admit Date/Time: 03/30/21 23:11 Primary Reason for Your Visit: Shortness of breath secondary to cor pulmonale Attending Provider: Geo Shaffer Primary Care Provider: Marshall Baltazar NP Consulting Providers: Carlos Campos ; Patrick Caldwell ; Marion Guzmán NP Discharge Orders/Prescriptions Prescriptions: New furosemide [Lasix] 40 mg tablet 40 mg PO BID Qty: 10 RF: 0 Continued ergocalciferol (vitamin D2) 50,000 unit capsule 50,000 unit PO QMONTH 30 Days Qty: 1 RF: 0 warfarin 2.5 mg tablet 2.5 mg PO DAILY RF: 0 Lantus Solostar U-100 Insulin 100 unit/mL (3 mL) insulin pen 74 unit SC HS RF: 0 gabapentin 600 MG tablet 600 mg PO TIDCM RF: 0 simvastatin 20 MG tablet 20 mg PO QHS RF: 0 sertraline 50 MG tablet 50 mg PO DAILY RF: 0 amlodipine 5 MG tablet 5 mg PO DAILY RF: 0 acetaminophen 500 MG tablet 1,000 mg PO Q8H PRN PRN (Reason: Mild Pain (1-11/02)) RF: 0 albuterol sulfate 1 PUFF HFA aerosol inhaler 2 inh INHALATION 4X/DAY PRN PRN (Reason: SOB) RF: 0 guaifenesin 1,200 MG tablet extended release 12hr 1,200 mg PO BID RF: 0 linagliptin 5 mg tablet 5 mg PO DAILY RF: 0 Held losartan 100 MG tablet 100 mg PO DAILY RF: 0 Hold Instructions: Resume on 04/18/21. Hold until follow up with Primary care physician Discontinued dexamethasone 2 MG tablet 6 mg PO DAILY@0800 RF: 0 Referrals / Follow Up: Carlos Campos MD [STAFF PHYSICIAN] - Within 2 Weeks (Please call to set up an appointment. ) Sara Lind DO [STAFF PHYSICIAN] - 04/25/21 1:00 pm Marshall Baltazar CASINO CHANGE ATTENDANT, CASINO CHANGE ATTENDANT-C [Primary Care Provider] - 04/18/21 1:20 pm Disposition Disposition (needs filled in before D/C Order can be placed): Home, Self Care Charges/Coding Visit Charges Inpatient E&M: [id number] Disch Hosp Hospital Course Consultations Consultations: Consultations 03/31/21 09:46 Consult: Academic Support Assistant / Pulmonary Medicine Routine Consulting Provider: Pulmonary Medicine lay Lackey Reason for Consult: respiratory failure EMERGENT Consult: No MD Notified: Yes Date Notified: 03/31/21 Time Notified: 09:49 Method of Notification: Verbal Operations None
--- NOTE | 2021-04-05 13:28 | CASEMGMT ---
Addendum entered by Laura Jimenez 04/07/21 12:11: Return call received from pt at this time. Pt states her phone was not working right and she just got a new one today and returning this GORGE ZIEGLER's call. Pt states she is doing better and breathing real good. She states she has been able to increase her activity around the house and walking a lot. She reports she has been having low sugars with this AMs being 51, and other during the day being in the 70's. She states she is trying to get back to 3 meals/day. She reports she has had low BS's in the past and will adjust her Lantus @ HS and take a lower dose. GORGE ZIEGLER advised pt to contact her PCP to discuss the low BS's and for further instructions on Lantus dosage. She states she thinks that is a good idea and will call them today. She denies having any questions about the discharge instructions. She is aware of appts w/PCP and Dr Lind and states she plans to call Dr Campos's office today to schedule an appt w/him. She states she was able to nut picker the new Rx for Lasix and is taking her medications as prescribed. She thanked GORGE ZIEGLER for calling. Original Note: GORGE ZIEGLER Discharge Follow-Up Phone Call. Lace: 13 Strata: 3 Discharge Date: 04/04/21 Adm Dx: Hyperkalemia. Possible COVID. Attempted discharge f/u phone call. No answer. Recording w/pt's name identified came on. VM left for return call to GORGE ZIEGLER if there are any questions or concerns. Phone number provided. Kelly LI RN, CM
== END 2021-04-04 15:06 | disposition home or self-care (01) | DRG 640 ==
LOC: ED 21:45 → PCU 03-31 00:07
PROVIDERS: Internal Medicine; Physician Assistant; Admitting Provider Internal Medicine; Emergency Provider Emergency Medicine; PCP Nurse Practitioner Family; Visit Provider Internal Medicine
DX: E87.5 Hyperkalemia (principal); I50.33 Acute on chronic diastolic (congestive) heart failure; I13.0 Hypertensive heart and chronic kidney disease with heart failure and stage 1 through stage 4 chronic kidney disease, or unspecified chronic kidney disease; N18.4 Chronic kidney disease, stage 4 (severe); Z68.43 Body mass index [BMI] 50.0-59.9, adult; J96.11 Chronic respiratory failure with hypoxia; N17.9 Acute kidney failure, unspecified; I50.82 Biventricular heart failure; I27.81 Cor pulmonale (chronic); E11.42 Type 2 diabetes mellitus with diabetic polyneuropathy; I27.20 Pulmonary hypertension, unspecified; I51.3 Intracardiac thrombosis, not elsewhere classified; E87.6 Hypokalemia; T50.2X5A Adverse effect of carbonic-anhydrase inhibitors, benzothiadiazides and other diuretics, initial encounter; E87.2 Acidosis; J45.20 Mild intermittent asthma, uncomplicated; E11.22 Type 2 diabetes mellitus with diabetic chronic kidney disease; I16.0 Hypertensive urgency; J44.9 Chronic obstructive pulmonary disease, unspecified; I48.0 Paroxysmal atrial fibrillation; I27.21 Secondary pulmonary arterial hypertension; Z20.822 Contact with and (suspected) exposure to COVID-19; E11.40 Type 2 diabetes mellitus with diabetic neuropathy, unspecified; E78.5 Hyperlipidemia, unspecified; F32.9 Major depressive disorder, single episode, unspecified; G47.33 Obstructive sleep apnea (adult) (pediatric); E66.01 Morbid (severe) obesity due to excess calories; Z91.19 Patient's noncompliance with other medical treatment and regimen; Z99.81 Dependence on supplemental oxygen; Z79.01 Long term (current) use of anticoagulants; Z79.4 Long term (current) use of insulin; Z79.899 Other long term (current) drug therapy; Z86.16 Personal history of COVID-19; Z96.651 Presence of right artificial knee joint
CPT/HCPCS: 36415; 70450; 71045; 71250; 80048; 80053; 81001; 82607; 82746; 82962; 84132; 84484; 85025; 85610; 87426; 87633; 87635; 93005; 93306; 94002; 94640; 97110; 97116; 97162; 97166; 97530; 97535; 97802; 99251; 99285; J7030; Q9957; U0005; A4216; G0463; J0610; J1940; J2405; J3490; U0003

== ENCOUNTER → 2021-04-25 13:51 | Outpatient (CLI) | payer MEDICARE, MEDICAID, SELFPAY ==
[2021-04-25 16:22] LABS: Albumin, Serum 3.2 g/dL (3.2-5.0); BUN 38 mg/dL (7-18); BUN/Creat Ratio 16.2 RATIO (10-20); Calcium,Total 8.6 mg/dL (8.5-10.1); Chloride 107 mmol/L (98-107); Creatinine, Serum 2.34 mg/dL (0.55-1.02); EST Glomerular Filtration Rate 22 mL/min (>60); Est Glom Filt Rate - Afr Amer 27 mL/min (>60); Glucose 165 mg/dL (74-106); Potassium 3.7 mmol/L (3.5-5.1); Sodium Level 142 mmol/L (136-145)
== END ==
PROVIDERS: PCP Nurse Practitioner Family; Referring Provider Internal Medicine Nephrology; Visit Provider Internal Medicine Nephrology
DX: N18.4 Chronic kidney disease, stage 4 (severe) (principal)
CPT/HCPCS: 36415; 80069

== ENCOUNTER 2021-04-29 19:10 | Inpatient (IN) | payer MEDICARE, MEDICAID, SELFPAY ==
[2021-04-29 19:12] VITALS: BP 128/68; PULSE 87; RESP 20; TEMP 36.6; O2SAT 92; BMI 56.7
--- NOTE | 2021-04-29 19:23 | CM.ED ---
Addendum entered by Leida Patel 04/29/21 21:24: LIS updated MD. He is reviewing patient's levels to determine discharge plan. Ramya RN noted that patient was unsteady on her feet in the room and 5 men assisted her tonight. SW met with patient. Patient said that she would like to go home. Patient said that her neighbor works at [facility] [employer] and said that she would come over and teach patient's daughter and significant other how to lift patient safety. Patient said that she does not have PT scheduled yet but it is supposed to be this week. SW stated that this life insurance underwriter is unsure of the discharge plans. SW provided patient with information and handout on Directions Home including phone number. SW also provided patient with list of SNF's in [facility] who are in network and also provided the print out for patient. SW also indicated that [facility] has a dialysis social worker and she can request to speak to her. SW also sent email to John in Home [facility] updating her about patient. Plan: To be determined. SW provided resources Original Note: LIS Note Referral Source: child adolescent careautomotive machinist Reason: EMS called to patient's house today 2x as she fell. Family said that they can not care for patient due to her weight. SW met with patient. Patient said that the squad was at her house 2x today, one in the morning as she slid down to the end of the reclainer and could not get up and then the squad came as this evening patient fell off the couch and couldn't get up 'my legs were weak. Patient said that her daughter and significant other tried to get her up and to the walker but my legs gave out. LIS asked patient about what she feels she needs at discharge and she reports I need someone to get rid of this extra weight. LIS asked patient about what she feels she needs at discharge and she said some therapy and stated that the therapy was scheduled to come next week. Patient said that she may need to go somewhere for rehab. Patient has never been to a rehab/SNF in the past. Patient voiced no preference about where to go for rehab/skilled level of care. Plan: To be determined Leida STROUD
--- NOTE | 2021-04-29 20:53 | RAD_ITS ---
INDICATION: dyspnea EXAMINATION/TECHNIQUE: X-RAY - XR Chest 1 View COMPARISON: 03/31/2021 FINDINGS: LINES/DEVICES: None. Overlying monitoring wires. LUNGS: Bilateral perihilar opacities persist with interval decrease in more peripheral opacities seen on the prior exam 03/31/2021. Small amount of fluid seen in the right minor fissure suggesting small pleural effusion. MEDIASTINUM AND CARDIOVASCULAR STRUCTURES: Cardiac silhouette not enlarged. Central airways and mediastinal contour are unremarkable. BONES AND SOFT TISSUES: Unremarkable. RAD/Chest 1 View (Portable) IMPRESSION: Findings most suggestive of interstitial edema. Overlying airspace disease is not excluded. Electronically Signed: Darrel Rahman DO at 22:26 EDT Tel , Service support ,
[2021-04-29 20:58] LABS: Absolute Lymphocyte Count 1.32 X10^3/uL (0.83-4.51); Absolute Neutrophil Count 3.9 X10^3/uL (2.0-7.7); Basophil# 0.02 X10^3/uL; Basophil% 0.3 % (0-1); Eosinophil# 0.09 X10^3/uL; Eosinophils% 1.5 % (0-5); Hematocrit 34.4 % (37-47); Hemoglobin 9.9 g/dL (12.0-15.0); Lymphocyte # 1.32 X10^3/ul (0.83-4.51); Lymphocyte % 22.3 % (19-41); Mean Corp Hgb Conc 28.8 g/dL (32-36); Mean Corpuscular Hgb 30.1 pg (27.0-32.0); Mean Corpuscular Volume 104.6 fL (81-99); Mean Platelet Vol. 10.8 fl (6.2-12.0); Monocyte# 0.59 X10^3/uL; NRBC Flagged by Analyzer 0 % (0-5); Neutrophil # 3.87 X10^3/uL (2.7-7.7); Neutrophil % 65.6 % (47-70); Platelet Count 145 K/mm3 (150-450); RBC Distribution Width CV 14.7 % (11.6-14.6); RBC Distribution Width SD 56.7 fl (35.1-43.9); Red Blood Count 3.29 M/mm3 (4.2-5.4); White Blood Count 5.9 K/mm3 (4.4-11.0)
[2021-04-29 21:07] LABS: International Normalized Ratio 2.2; Prothrombin Time (Protime)PT. 23.9 SECONDS (11.7-14.9)
[2021-04-29 21:08] LABS: Partial Thromboplast Time 34.7 Seconds (24.1-36.2)
[2021-04-29 21:12] LABS: Anion Gap 2 (5-15); BUN 53 mg/dL (7-18); BUN/Creat Ratio 15.5 RATIO (10-20); Calcium,Total 8.4 mg/dL (8.5-10.1); Chloride 106 mmol/L (98-107); Creatinine, Serum 3.42 mg/dL (0.55-1.02); EST Glomerular Filtration Rate 14 mL/min (>60); Est Glom Filt Rate - Afr Amer 17 mL/min (>60); Estimated Creatinine Clearance 15.31 ml/min; Glucose 188 mg/dL (74-106); Potassium 4.2 mmol/L (3.5-5.1); Sodium Level 140 mmol/L (136-145)
[2021-04-29 21:15] LABS: BNP,B-Type NATRIURETIC PEPTIDE 105.5 pg/mL (0-100)
[2021-04-29] MEDS: Furosemide 40 MG/4 ML Vial IV (21:16)
[2021-04-29 21:19] VITALS: BP 140/117; PULSE 84; RESP 22; O2SAT 94
--- NOTE | 2021-04-29 21:45 | EKG12_ITS ---
Test Reason : ARHYTHMIA Blood Pressure : / mmHG Vent. Rate : 078 BPM Atrial Rate : 277 BPM P-R Int : 000 ms QRS Dur : 096 ms QT Int : 374 ms P-R-T Axes : 000 094 071 degrees QTc Int : 426 ms Atrial fibrillation Low voltage QRS Abnormal ECG Confirmed by CUCO OSUNA, AKBAR ([id number]), clinical editor JENNIFER TOMLIN ([id number]) on 05/02/2021 8:08:35 AM Referred By: ASHISH Confirmed By:JESSICA NORWODO MD
--- NOTE | 2021-04-29 23:06 | EDS_ITS ---
HPI History of Present Illness Chief Complaint: Edema Narrative Narrative: Patient reports a past medical history of leg swelling and states she is on Lasix for this. She also has a past medical history of chronic atrial fibrillation. She states that she was recently in the hospital secondary to the worsening swelling and discharged home. She reports over the past few days she felt like the legs have returned to being swollen once again. She states that she cannot get up and walk because her legs are too heavy to move from the swelling and therefore sent in for evaluation. The patient states she still lives at home [facility] Medical History (Updated 04/30/21 @ 00:[address] Akash Jose MD) Acute respiratory failure with hypoxia Allergic rhinitis Arthritis Asthma Atrial fibrillation Cellulitis of right lower extremity Chronic kidney disease (CKD) stage G1/A2, glomerular filtration rate (GFR) equal to or greater than 90 mL/min/1.73 square meter and albuminuria creatinine ratio between 30-299 mg/g CKD (chronic kidney disease), stage IV COPD (chronic obstructive pulmonary disease) Cor pulmonale Depression Diabetes Diabetic neuropathy associated with type 2 diabetes mellitus Hay fever Hyperlipidemia Hypertension Hypertension Knee pain Morbid obesity On home oxygen therapy DIEGO (obstructive sleep apnea) Paroxysmal A-fib Right leg pain Right-sided congestive heart failure Secondary pulmonary arterial hypertension Sleep apnea Venous insufficiency (chronic) (peripheral) Vitamin D deficiency Home Medications gabapentin 600 mg PO TIDCM 11/08/14 [History Last Taken 07/07/20] sertraline 50 mg PO DAILY 11/08/14 [History Last Taken 07/07/20] simvastatin 20 mg PO QHS 11/08/14 [History Last Taken 07/07/20] ergocalciferol (vitamin D2) 1,250 mcg (50,000 unit) capsule 50,000 unit PO QMONTH 30 Days #1 01/13/18 [History Last Taken 06/26/20] amlodipine 5 mg PO DAILY 03/31/18 [History Last Taken 07/07/20] acetaminophen 1,000 mg PO Q8H PRN PRN tab 04/14/18 [Rx Last Taken 07/08/20] insulin glargine 100 unit/mL (3 mL) subcutaneous pen 74 unit SC HS ml 05/22/18 [History Last Taken 07/07/20] warfarin 2.5 mg tablet 2.5 mg PO DAILY 05/22/18 [History Last Taken 07/07/20] albuterol sulfate 2 inh INHALATION 4X/DAY PRN PRN 03/18/21 [History Last Taken Unknown] linagliptin 5 mg PO DAILY 03/30/21 [History Last Taken Unknown] losartan 100 mg PO DAILY 03/30/21 [History Last Taken Unknown] loratadine 10 mg capsule 10 mg PO DAILY 04/26/21 [History Last Taken Unknown] furosemide [Lasix] 40 mg PO DAILY 04/29/21 [History Last Taken Unknown] Allergy/AdvReac Type Severity Reaction Status Date / Time aspirin Allergy Unknown Unknown Verified 04/29/21 19:21 ibuprofen Allergy Unknown Verified 04/29/21 19:21 sulfamethoxazole Allergy Unknown Verified 04/29/21 19:21 [From ] trimethoprim [From ] Allergy Unknown Verified 04/29/21 19:21 Family History Mother CAD (coronary artery disease) Hypertension Father CAD (coronary artery disease) Hypertension Other Diabetes Heart disease Surgical History History of knee replacement procedure of right knee Hx of section Social History household members: spouse, family and children housing: house current occupational status: unemployed and retired Smoking Status: Never smoker ROS ROS ED Constitutional Constitutional ED: Denies chills or fever(s) ENT ENT ED: Denies rhinorrhea Cardiovascular Cardiovascular: Denies chest pain Respiratory/Chest Respiratory/Chest: Denies cough or dyspnea Gastrointestinal Gastrointestinal: Denies abdominal pain, nausea or vomiting Musculoskeletal Musculoskeletal: Denies myalgias Integumentary Denies rash Neurologic Neurologic: Denies headache(s) Hematologic/Lymphatic Hematologic/Lymphatic: Reports easy bleeding and easy bruising EXAM Physical Exam Const Vital Signs: 04/29/21 19:12 04/29/21 19:28 04/29/21 21:19 Temperature 97.8 F Temperature Source Oral Pulse Rate 87 84 Respiratory Rate 20 H 22 H Respiratory Effort Normal Non-Labored Respiratory Pattern Normal Blood Pressure 128/68 H 140/117 H Blood Pressure Mean 88 124 Pulse Ox 92 94 Oxygen Delivery Method Nasal Cannula Nasal Cannula Oxygen Flow Rate (L/min) 4 4 Positive well nourished and obese Nutritional Appearance: obese HEENT HEENT Narrative: No tongue or lip swelling no oral lesions no airway edema or compromise Eyes PERRL and EOMs intact bilaterally Neck no JVD Resp Resp Narrative: Breath sounds are diminished throughout with faint crackles in the bilateral bases but no signs of acute respiratory distress Cardio Rate: other Other Details: Irregularly irregular rhythm with regular rate consistent with history of atrial fibrillation GI non-tender and non-distended GI Narrative: No voluntary guarding or rigidity no fluid wave Auscultation: normoactive bowel sounds Palpation: soft Extremity Extremity Narrative: Patient has +3-4 pitting edema to the bilateral lower extremities that extends up from the ankle to just above the knee Neuro oriented x3 and CN's II-XII intact bilaterally Sensorium / Orientation: alert Psych mental status grossly normal Skin no rashes or lesions noted MDM MDM MDM Narrative Medical decision making narrative: Patient presented to the ER in atrial fibrillation but is rate controlled and chronic for her. She is also on oxygen which she states she wears at home and her pulse ox is in the mid 90s with no signs of distress. The patient's leg swelling is chronic in nature. However with report of worsening swelling since being discharged home as well as the difficulty ambulating because of it a basic work-up was obtained. Work-up showed an elevation of her one-point to her creatinine indicating acute kidney injury. Therefore at this time will place the patient in the hospital for her ESPERANZA and she states she is agreeable to rehab[place] [facility] based on her inability to ambulate at home or care for herself well Lab Data Labs: Laboratory Results - last 24 hr 04/29/21 04/29/21 04/29/21 20:43 20:43 20:43 WBC 5.9 RBC 3.29 L Hgb 9.9 L Hct 34.4 L MCV 104.6 H MCH 30.1 MCHC 28.8 L RDW Std Deviation 56.7 H RDW Coeff of Angelika 14.7 H Plt Count 145 L MPV 10.8 Immature Gran % (Auto) 0.300 Neut % (Auto) 65.6 Lymph % (Auto) 22.3 Burt % (Auto) 10.0 Eos % (Auto) 1.5 Baso % (Auto) 0.3 Absolute Neuts (auto) 3.9 Absolute Lymphs (auto) 1.32 Nucleated RBC % 0 PT 23.9 H INR 2.2 APTT 34.7 Sodium 140 Potassium 4.2 Chloride 106 Carbon Dioxide 32.0 Anion Gap 2 L BUN 53 H Creatinine 3.42 H Estim Creat Clear Calc 15.31 Est GFR (MDRD) Af Amer 17 L Est GFR (MDRD) Non-Af 14 L BUN/Creatinine Ratio 15.5 Glucose 188 H Calcium 8.4 L B-Natriuretic Peptide 04/29/21 20:43 WBC RBC Hgb Hct MCV MCH MCHC RDW Std Deviation RDW Coeff of Angelika Plt Count MPV Immature Gran % (Auto) Neut % (Auto) Lymph % (Auto) [place]urt % (Auto) Eos % (Auto) Baso % (Auto) Absolute Neuts (auto) Absolute Lymphs (auto) Nucleated RBC % PT INR APTT Sodium Potassium Chloride Carbon Dioxide Anion Gap BUN Creatinine Estim Creat Clear Calc Est GFR (MDRD) Af Amer Est GFR (MDRD) Non-Af BUN/Creatinine Ratio Glucose Calcium B-Natriuretic Peptide 105.5 H Radiography Diagnostic Testing: Radiology Impression Chest X-Ray 04/29/21 20:53 IMPRESSION: Findings most suggestive of interstitial edema. Overlying airspace disease is not excluded. Electronically Signed: Darrel Rahman DO at 22:26 EDT Tel , Service support , Discharge Plan Dx/Rx/DC Orders Clinical Impression: Acute kidney injury, CHF (congestive heart failure), Inability to walk, Atrial fibrillation, chronic Disposition Disposition: Acute Care Hospital [facility]
--- NOTE | 2021-04-29 23:11 | PCM.HP.STD ---
[facility] - General General Date of Admission: 04/29/21 Date of Service: 04/29/21 Chief Complaint: Swelling of bilateral legs and feet [facility] Narrative ELINA MEZA, is a 70 F with a significant history of COPD; cor pulmonale; hypertension and atrial fibrillation who presents emergency department with persistent swelling of her bilateral lower extremities. Reportedly her symptom has been going on for about 2 weeks. Of note patient was admitted at a hospital in 03/30/2010 and discharged on 04/04/2021. She was treated for cor pulmonale with Lasix on presentation. On discharge she was prescribed Lasix 40 mg twice daily. She reported that after she completed her twice daily dosing of Lasix her PCP put her on 40 mg Lasix daily. She feels more heavier than previous. However she is unable to state any exact weight changes. She has chronic orthopnea that has not changed. She denies any shortness of breath above her baseline. She denies paroxysmal nocturnal dyspnea. Previously she was on Pap therapy but now she has to go through a couple of test outpatient before she can be placed back on APAP therapy. Patient does not have home health service at this time. She is requesting that she get home health service or she gets into rehab or she gets into rehab since she is too weak to stand. [facility] Medical History (Updated 04/30/21 @ 00:[address] Akash Jose MD) Acute respiratory failure with hypoxia Allergic rhinitis Arthritis Asthma Atrial fibrillation Cellulitis of right lower extremity Chronic kidney disease (CKD) stage G1/A2, glomerular filtration rate (GFR) equal to or greater than 90 mL/min/1.73 square meter and albuminuria creatinine ratio between 30-299 mg/g CKD (chronic kidney disease), stage IV COPD (chronic obstructive pulmonary disease) Cor pulmonale Depression Diabetes Diabetic neuropathy associated with type 2 diabetes mellitus Hay fever Hyperlipidemia Hypertension Hypertension Knee pain Morbid obesity On home oxygen therapy DIEGO (obstructive sleep apnea) Paroxysmal A-fib Right leg pain Right-sided congestive heart failure Secondary pulmonary arterial hypertension Sleep apnea Venous insufficiency (chronic) (peripheral) Vitamin D deficiency Home Medications gabapentin 600 mg PO TIDCM 11/08/14 [History Last Taken 07/07/20] sertraline 50 mg PO DAILY 11/08/14 [History Last Taken 07/07/20] simvastatin 20 mg PO QHS 11/08/14 [History Last Taken 07/07/20] ergocalciferol (vitamin D2) 1,250 mcg (50,000 unit) capsule 50,000 unit PO QMONTH 30 Days #1 01/13/18 [History Last Taken 06/26/20] amlodipine 5 mg PO DAILY 03/31/18 [History Last Taken 07/07/20] acetaminophen 1,000 mg PO Q8H PRN PRN tab 04/14/18 [Rx Last Taken 07/08/20] insulin glargine 100 unit/mL (3 mL) subcutaneous pen 74 unit SC HS ml 05/22/18 [History Last Taken 07/07/20] warfarin 2.5 mg tablet 2.5 mg PO DAILY 05/22/18 [History Last Taken 07/07/20] albuterol sulfate 2 inh INHALATION 4X/DAY PRN PRN 03/18/21 [History Last Taken Unknown] linagliptin 5 mg PO DAILY 03/30/21 [History Last Taken Unknown] losartan 100 mg PO DAILY 03/30/21 [History Last Taken Unknown] loratadine 10 mg capsule 10 mg PO DAILY 04/26/21 [History Last Taken Unknown] furosemide [Lasix] 40 mg PO DAILY 04/29/21 [History Last Taken Unknown] Allergy/AdvReac Type Severity Reaction Status Date / Time aspirin Allergy Unknown Unknown Verified 04/29/21 19:21 ibuprofen Allergy Unknown Verified 04/29/21 19:21 sulfamethoxazole Allergy Unknown Verified 04/29/21 19:21 [From ] trimethoprim [From ] Allergy Unknown Verified 04/29/21 19:21 Family History Mother CAD (coronary artery disease) Hypertension Father CAD (coronary artery disease) Hypertension Other Diabetes Heart disease Surgical History History of knee replacement procedure of right knee Hx of section Social History household members: spouse, family and children housing: house current occupational status: unemployed and retired Smoking Status: Never smoker ROS ROS Narrative Constitutional: Denies anorexia. Reports fatigue and weakness. Feels heavier. Eyes: Denies blurry vision, change in eye color, change in vision, discharge from eye(s), double vision, erythema, eye pain, loss of vision or other HEENT: Denies abnormal hearing, dysphagia, ear pain, epistaxis, headache(s), hearing loss, nasal congestion, nasal discharge, post nasal drip, sinus pressure, sore throat or other Cardiovascular: Denies chest pain. Reports orthopnea. Denies paroxysmal nocturnal dyspnea Respiratory/Chest: Denies cough, excessive phlegm production. Gastrointestinal: Denies abdominal pain, coffee ground emesis, constipation, diarrhea, dyspepsia, hematemesis, hematochezia, loose stools, melena, nausea, vomiting or other Genitourinary: Denies burning urination, difficulty urinating, dysuria, hematuria, nocturia, urinary frequency, urinary hesitancy, urinary incontinence, urinary urgency or other Musculoskeletal: Denies arthralgias, back pain, joint pain, joint stiffness, joint swelling, myalgias, neck pain or other Neurologic: Denies abnormal gait, abnormal speech, confusion, disequilibrium, dizziness, focal weakness, headache(s), numbness, paresthesias, seizure-like activity, seizures, syncope, tingling, tremor(s) or other Psychiatric: Denies anxiety, depression, homicidal ideation, suicidal ideation or other Endocrinology: Denies change in body appearance, cold intolerance, excessive sweating, heat intolerance, polydipsia, polyuria or other Hematologic/Lymphatic: Denies anemia, easy bleeding, easy bruising, lymphadenopathy or other Integumentary: Denies rashes Allergic/Immunologic: Denies rhinitis, hives, eczema, asthma or other Vital Signs Vital Signs Vital Signs: 04/29/21 19:12 04/29/21 19:28 04/29/21 21:19 Temperature 97.8 F Temperature Source Oral Pulse Rate 87 84 Respiratory Rate 20 H 22 H Respiratory Effort Normal Non-Labored Respiratory Pattern Normal Blood Pressure 128/68 H 140/117 H Blood Pressure Mean 88 124 Pulse Ox 92 94 Oxygen Delivery Method Nasal Cannula Nasal Cannula Oxygen Flow Rate (L/min) 4 4 Weight Weight: 164.2 kg Body Mass Index (BMI) 56.7 Physical Exam Narrative Physical exam: General: Well-nourished, well-developed. Head: Normocephalic, atraumatic, no tenderness Eyes: PERRLA, EOMI ENT, no trauma, moist mucous membranes, no rhinorrhea Neck: Nontender, full range of motion, no spinal tenderness, deformities, step-off CVS: Irregularly irregular rate and rhythm. No murmur, gallop or rub. Respiratory : clear to auscultation bilaterally, chest wall nontender, no wheezing Abdomen: Soft, nontender, nondistended, normal bowel sounds, no masses : Deferred Back: Nontender, no CVA tenderness, no midline spinal tenderness, deformities, step-offs Extremities: Nontender, no trauma. Bilateral leg and bilateral feet edema Skin: Normal color, no trauma, abrasions Neuro: Alert, oriented, cranial nerves II through XII grossly intact. Psychiatry: Normal mood. Normal affect. Not depressed. Not anxious. Results Lab / Micro Data Result Diagrams: 04/29/21 20:43 04/29/21 20:43 Labs: Laboratory Results - last 24 hr 04/29/21 20:43: WBC 5.9, RBC 3.29 L, Hgb 9.9 L, Hct 34.4 L, MCV 104.6 H, MCH 30.1, MCHC 28.8 L, RDW Std Deviation 56.7 H, RDW Coeff of Angelika 14.7 H, Plt Count 145 L, MPV 10.8, Immature Gran % (Auto) 0.300, Neut % (Auto) 65.6, Lymph % (Auto) 22.3, [place] % (Auto) 10.0, Eos % (Auto) 1.5, Baso % (Auto) 0.3, Absolute Neuts (auto) 3.9, Absolute Lymphs (auto) 1.32, Nucleated RBC % 0 04/29/21 20:43: PT 23.9 H, INR 2.2, APTT 34.7 04/29/21 20:43: Sodium 140, Potassium 4.2, Chloride 106, Carbon Dioxide 32.0, Anion Gap 2 L, BUN 53 H, Creatinine 3.42 H, Estim Creat Clear Calc 15.31, Est GFR (MDRD) Af Amer 17 L, Est GFR (MDRD) Non-Af 14 L, BUN/Creatinine Ratio 15.5, Glucose 188 H, Calcium 8.4 L 04/29/21 20:43: B-Natriuretic Peptide 105.5 H Radiology Impression Chest X-Ray 04/29/21 20:53 IMPRESSION: Findings most suggestive of interstitial edema. Overlying airspace disease is not excluded. Electronically Signed: Darrel Rahman, DO at 22:26 EDT Tel , Service support , Assessment & Plan Assessment/Plan (1) Acute kidney injury: (2) Debility: (3) Cor pulmonale: PLAN: ESPERANZA on CKD stage IV CKD like secondary to diabetes 2 and hypertensive nephrosclerosis. Creatinine on presentation was 3.42. Baseline creatinine is around 2.35. BUN was also severely elevated with level at 53. BUN is more elevated than previous. Received initial dose of Lasix 40 mg IV at the ED before labs resulted. On home Lasix 40 mg p.o. daily. Will de-escalate to Lasix 20 mg p.o. daily. Avoid nephrotoxic's. Hold home losartan trend BMP and make appropriate adjustment as necessary. Debility PT and OT work with patient Case management consult for disposition Cor pulmonale. Radiologist impression of chest x-ray:Findings most suggestive of interstitial edema. Overlying airspace disease is not excluded. Actual chest x-ray image was independently interpreted and agree with findings suggestive of interstitial edema. Chest x-ray was compared with chest x-ray of 03/31/2021. Chest x-ray on 03/31/2021 appears worse with bilateral opacities. Continue Lasix 20 mg as above. Fluid restriction of 2000 mL/day. Clark wrap to bilateral legs. Daily weights ordered. Strict intake and outputs. Diabetes mellitus Patient with hyperglycemia on presentation Basal insulin continued and adjusted. Linagliptin continued. Accu-Chek with correction scale insulin ordered. Hypertension Blood pressure is not within goal Amlodipine continued. Losartan held secondary to ESPERANZA. Lasix de-escalate secondary ESPERANZA. As needed hydralazine ordered. Trend blood pressure and adjust blood pressure medications. Atrial fibrillation Stable with controlled ventricular rates. On warfarin with therapeutic INR. Coumadin continued. Daily INR. COPD As needed albuterol inhaler continue DVT prophylaxis: Not indicated since patient is therapeutic on Coumadin. Coumadin continued. Charges/Coding Visit Charges Inpatient E&M: 43034 Init Hosp L3
[2021-04-30] VITALS (13 sets, daily range): BP systolic 106–140; BP diastolic 70–117; PULSE 72–119; RESP 16–22; TEMP 36.3–36.8; O2SAT 93–96; BMI 55.4
--- NOTE | 2021-04-30 00:18 | NURSING ---
Had Leonardo and Leonardo covid vaccine in October 2020 unsure of date
--- NOTE | 2021-04-30 00:50 | PCS.PANDOC ---
PANDEMIC DOCUMENTATION INITIATED: Date: 04/30/2021 Time: 0001
[2021-04-30] MEDS: Nystatin Powder 15gm Bottle 1 APPLIC TOPICAL ×3 (01:14→22:08)
[2021-04-30 06:51] LABS: Bedside Glucose 144 mg/dL (70-110)
[2021-04-30 07:51] LABS: International Normalized Ratio 2.5; Prothrombin Time (Protime)PT. 26.3 SECONDS (11.7-14.9)
[2021-04-30 07:58] LABS: Anion Gap 4 (5-15); BUN 54 mg/dL (7-18); BUN/Creat Ratio 16.5 RATIO (10-20); Calcium,Total 8.5 mg/dL (8.5-10.1); Chloride 106 mmol/L (98-107); Creatinine, Serum 3.27 mg/dL (0.55-1.02); EST Glomerular Filtration Rate 15 mL/min (>60); Est Glom Filt Rate - Afr Amer 18 mL/min (>60); Estimated Creatinine Clearance 16.01 ml/min; Glucose 151 mg/dL (74-106); Sodium Level 141 mmol/L (136-145)
[2021-04-30] MEDS: amLODIPine 5 MG Tablet PO (08:34)
[2021-04-30] MEDS: Gabapentin 100 MG Capsule 200 MG PO ×3 (08:34→16:14)
[2021-04-30] MEDS: Furosemide 40 MG Tablet PO (08:34)
[2021-04-30] MEDS: LINAGLIPTIN 5 MG TABLET PO (08:34)
[2021-04-30] MEDS: Loratadine 10 MG Tablet PO (08:34)
[2021-04-30] MEDS: Sertraline 50 MG Tablet PO (08:35)
[2021-04-30] MEDS: Insulin Lispro 100 UNIT/ML INSULN.PEN SC ×3 (11:43→22:05)
[2021-04-30 12:05] LABS: Bedside Glucose 183 mg/dL (70-110)
--- NOTE | 2021-04-30 14:50 | PCM.PN.HOSP ---
Subjective Subjective Patient was seen and examined. Denied any new complaints. Denied any fever or chills. Objective Data Objective Data Vital Signs: Vital Signs Temp Pulse Resp BP Pulse Ox 97.4 F L 83 18 122/76 H 93 04/30/21 06:44 04/30/21 07:03 04/30/21 06:44 04/30/21 06:44 04/30/21 14:12 Oxygen Flow Rate (L/min) 6 Oxygen Delivery Method Nasal Cannula Weight: 161 kg Body Mass Index (BMI) 55.4 Intake & Output: Intake and Output for Last 24 Hours 04/28/21 04/29/21 04/30/21 23:59 23:59 23:59 Intake Total 280 / 280 Balance 280 / 280 Lab / Micro Data Result Diagrams: 04/29/21 20:43 04/30/21 07:12 Labs: Laboratory Results - last 24 hr 04/29/21 20:43: WBC 5.9, RBC 3.29 L, Hgb 9.9 L, Hct 34.4 L, MCV 104.6 H, MCH 30.1, MCHC 28.8 L, RDW Std Deviation 56.7 H, RDW Coeff of Angelika 14.7 H, Plt Count 145 L, MPV 10.8, Immature Gran % (Auto) 0.300, Neut % (Auto) 65.6, Lymph % (Auto) 22.3, [place] % (Auto) 10.0, Eos % (Auto) 1.5, Baso % (Auto) 0.3, Absolute Neuts (auto) 3.9, Absolute Lymphs (auto) 1.32, Nucleated RBC % 0 04/29/21 20:43: PT 23.9 H, INR 2.2, APTT 34.7 04/29/21 20:43: Sodium 140, Potassium 4.2, Chloride 106, Carbon Dioxide 32.0, Anion Gap 2 L, BUN 53 H, Creatinine 3.42 H, Estim Creat Clear Calc 15.31, Est GFR (MDRD) Af Amer 17 L, Est GFR (MDRD) Non-Af 14 L, BUN/Creatinine Ratio 15.5, Glucose 188 H, Calcium 8.4 L 04/29/21 20:43: B-Natriuretic Peptide 105.5 H 04/30/21 06:33: POC Glucose 144 H 04/30/21 07:12: PT 26.3 H, INR 2.5 04/30/21 07:12: Sodium 141, Potassium 4.0, Chloride 106, Carbon Dioxide 31.0, Anion Gap 4 L, BUN 54 H, Creatinine 3.27 H, Estim Creat Clear Calc 16.01, Est GFR (MDRD) Af Amer 18 L, Est GFR (MDRD) Non-Af 15 L, BUN/Creatinine Ratio 16.5, Glucose 151 H, Calcium 8.5 04/30/21 11:38: POC Glucose 183 H Radiography Diagnostic Testing: Radiology Impression Chest X-Ray 04/29/21 20:53 IMPRESSION: Findings most suggestive of interstitial edema. Overlying airspace disease is not excluded. Electronically Signed: Darrel Rahman DO at 22:26 EDT Tel , Service support , Physical Exam Narrative Physical exam: General: Alert, Oriented x3, Cooperative, No apparent distress, morbidly obese, on 6 L of oxygen HEENT: Atraumatic Oral: Moist Mucosa Neck: Supple Lungs: Diminished Cardiovascular: HS I+II, IRregular, no murmurs Abdomen: Bowel Sounds Present, Soft, Non Tender Extremities: Bilateral leg edema +2?3 Assessment & Plan Assessment/Plan (1) Acute kidney injury: (2) Debility: (3) Cor pulmonale: PLAN: 1. ESPERANZA on CKD stage IV, likely secondary to cardiorenal Patient remains fluid overloaded Continue to hold losartan With increased Lasix to 40mg IV BID Repeat renal profile in am 2. Acute exacerbation of heart failure with preserved EF, EF 55 to 60% BNP appears 105.5, patient was to be clinically heart failure Will continue on Lasix, strict I's and O's, CHF protocol 3.Type II DM, blood sugars controlled, continue on insulin regimen 4.Hypertension, controlled, continue amlodipine 5. Chronic atrial fibrillation, rate controlled, INR is 2.5, continue Coumadin, repeat INR in a.m. 6.Rest of chronic medical condition including COPD, morbid obesity -remained stable for now Charges/Coding Visit Charges Inpatient E&M: 87593 Subs Hosp L2
[2021-04-30] MEDS: Acetaminophen 500 MG Tablet 1000 MG PO (16:15)
[2021-04-30 16:46] LABS: Bedside Glucose 216 mg/dL (70-110)
[2021-04-30] MEDS: Furosemide 40 MG/4 ML Vial IV (19:54)
[2021-04-30] MEDS: 0.9% Saline Lock 10 ML Syringe IV (19:54)
[2021-04-30] MEDS: Atorvastatin Calcium 10 MG Tablet PO (22:04)
[2021-04-30 22:16] LABS: Bedside Glucose 202 mg/dL (70-110)
[2021-05-01] VITALS (23 sets, daily range): BP systolic 93–134; BP diastolic 53–84; PULSE 64–111; RESP 12–24; TEMP 36.4–37.2; O2SAT 90–100
[2021-05-01] MEDS: Ondansetron 4 MG/2 ML Vial IV (03:15)
[2021-05-01] MEDS: 0.9% Saline Lock 10 ML Syringe IV ×3 (03:15→21:04)
[2021-05-01 06:24] LABS: Absolute Lymphocyte Count 1.58 X10^3/uL (0.83-4.51); Basophil# 0.02 X10^3/uL; Basophil% 0.3 % (0-1); Eosinophil# 0.11 X10^3/uL; Eosinophils% 1.8 % (0-5); Hematocrit 34.3 % (37-47); Hemoglobin 9.6 g/dL (12.0-15.0); Lymphocyte # 1.58 X10^3/ul (0.83-4.51); Lymphocyte % 25.3 % (19-41); Mean Corpuscular Hgb 29.8 pg (27.0-32.0); Mean Corpuscular Volume 106.5 fL (81-99); Mean Platelet Vol. 11.4 fl (6.2-12.0); Monocyte# 0.54 X10^3/uL; Monocyte% 8.6 % (0-10); NRBC Flagged by Analyzer 0 % (0-5); Neutrophil # 3.97 X10^3/uL (2.7-7.7); Neutrophil % 63.5 % (47-70); Platelet Count 160 K/mm3 (150-450); RBC Distribution Width CV 14.6 % (11.6-14.6); RBC Distribution Width SD 57.7 fl (35.1-43.9); Red Blood Count 3.22 M/mm3 (4.2-5.4); White Blood Count 6.3 K/mm3 (4.4-11.0)
[2021-05-01 06:32] LABS: International Normalized Ratio 2.7; Prothrombin Time (Protime)PT. 28.2 SECONDS (11.7-14.9)
[2021-05-01 06:55] LABS: Bedside Glucose 145 mg/dL (70-110)
[2021-05-01 06:55] LABS: ALB/GLOB Ratio 0.6 RATIO (0.9-2.4); AST(SGOT) 12 U/L (15-37); Alanine Aminotransfer ALT/SGPT 12 U/L (13-56); Albumin, Serum 2.8 g/dL (3.2-5.0); Alkaline Phosphatase 57 U/L (45-117); Anion Gap 3 (5-15); BUN 60 mg/dL (7-18); BUN/Creat Ratio 19.5 RATIO (10-20); Calcium,Total 8.3 mg/dL (8.5-10.1); Chloride 104 mmol/L (98-107); Creatinine, Serum 3.08 mg/dL (0.55-1.02); EST Glomerular Filtration Rate 16 mL/min (>60); Est Glom Filt Rate - Afr Amer 19 mL/min (>60); Globulin 4.8 g/dL (2.2-4.2); Glucose 146 mg/dL (74-106); Potassium 4.3 mmol/L (3.5-5.1); Protein, Total 7.6 g/dL (6.4-8.2); Sodium Level 138 mmol/L (136-145)
[2021-05-01] MEDS: Gabapentin 100 MG Capsule 200 MG PO ×3 (09:29→16:28)
[2021-05-01] MEDS: Loratadine 10 MG Tablet PO (09:29)
[2021-05-01] MEDS: Sertraline 50 MG Tablet PO (09:30)
[2021-05-01] MEDS: amLODIPine 5 MG Tablet PO (09:31)
[2021-05-01] MEDS: LINAGLIPTIN 5 MG TABLET PO (09:31)
[2021-05-01] MEDS: Furosemide 40 MG/4 ML Vial IV ×3 (09:35→21:05)
[2021-05-01] MEDS: Acetaminophen 500 MG Tablet 1000 MG PO (09:35)
[2021-05-01] MEDS: Nystatin Powder 15gm Bottle 1 APPLIC TOPICAL ×2 (09:36→21:03)
[2021-05-01 11:40] LABS: Bedside Glucose 129 mg/dL (70-110)
--- NOTE | 2021-05-01 12:51 | PN.HOSP_ITS ---
Documented by User: Penny Robert NP, [employer]OPE[employer]IV[employer]PL[employer] MECHANIC-C 05/01/21 13:04 Subjective Subjective Patient seen and examined. Continues to feel short of breath however improved. States she did not sleep well overnight. Notes improvement in lower extremity swelling. Patient reports she chronically wears 6 L nasal cannula at home. Objective Data Objective Data Vital Signs: Vital Signs Temp Pulse Resp BP Pulse Ox 98.4 F 111 H 18 124/66 H 93 05/01/21 10:05/01/21 12:05/01/21 10:05/01/21 10:05/01/21 10:28 Oxygen Flow Rate (L/min) 7 Oxygen Delivery Method Nasal Cannula Weight: 364 lb 6.786 oz Body Mass Index (BMI) 55.4 Intake & Output: Intake and Output for Last 24 Hours 04/29/21 04/30/21 05/01/21 23:59 23:59 23:59 Intake Total 630 / 630 420 / 420 Output Total 550 / 550 Balance 630 / 430 -130 / -130 Lab / Micro Data Result Diagrams: 05/01/21 05:23 05/01/21 05:23 Labs: Laboratory Results - last 24 hr 04/30/21 16:20: POC Glucose 216 H 04/30/21 22:03: POC Glucose 202 H 05/01/21 05:23: PT 28.2 H, INR 2.7 05/01/21 05:23: WBC 6.3, RBC 3.22 L, Hgb 9.6 L, Hct 34.3 L, MCV 106.5 H, MCH 29.8, MCHC 28.0 L, RDW Std Deviation 57.7 H, RDW Coeff of Angelika 14.6, Plt Count 160, MPV 11.4, Immature Gran % (Auto) 0.500, Neut % (Auto) 63.5, Lymph % (Auto) 25.3, Bryan % (Auto) 8.6, Eos % (Auto) 1.8, Baso % (Auto) 0.3, Absolute Neuts (auto) 4.0, Absolute Lymphs (auto) 1.58, Nucleated RBC % 0 05/01/21 05:23: Sodium 138, Potassium 4.3, Chloride 104, Carbon Dioxide 31.0, Anion Gap 3 L, BUN 60 H, Creatinine 3.08 H, Estim Creat Clear Calc 17.00, Est GFR (MDRD) Af Amer 19 L, Est GFR (MDRD) Non-Af 16 L, BUN/Creatinine Ratio 19.5, Glucose 146 H, Calcium 8.3 L, Total Bilirubin 0.70, AST 12 L, ALT 12 L, Alkaline Phosphatase 57, Total Protein 7.6, Albumin 2.8 L, Globulin 4.8 H, Albumin/Globulin Ratio 0.6 L 05/01/21 06:49: POC Glucose 145 H 05/01/21 11:34: POC Glucose 129 H Physical Exam Const alert, oriented x3 and no apparent distress Orientation / Consciousness: awake, oriented to person, oriented to place and oriented to time HEENT normocephalic and moist oral mucous membranes Eyes PERRL, EOMs intact bilaterally and conjunctivae normal Neck no lymphadenopathy Resp clear to auscultation bilaterally Auscultation: diminished lung sounds Cardio Cardio Narrative: Atrial fibrillation, rate controlled Peripheral Pulses: pulses 2+ throughout GI normal to inspection, nondistended, normoactive bowel sounds, non-tender and non-distended Extremity normal to inspection General Extremity: edema bilateral lower extremity Details: moderate (Clark wraps in place) Skin no rashes or lesions noted Lesions: no lesions Rashes: no rashes Trauma: no lacerations or abrasions Neuro CN's II-XII intact bilaterally, no focal motor deficits, no sensory deficits noted and deep tendon reflexes 2+ bilaterally Psych mental status grossly normal and affect normal Assessment & Plan Assessment/Plan (1) Acute kidney injury: PLAN: 1. Acute kidney injury on chronic kidney disease stage IV, ESPERANZA likely cardiorenal-creatinine improving with diuresis. Losartan on hold. Patient follows with Dr. Lind, nephrology. Nephrology consulted. Trend BMP. 2. Acute on chronic heart failure with preserved ejection fraction-IV Lasix. Strict I&O. Daily weight. Echocardiogram 03/31/2021 demonstrated an EF of 55 to 60%. Echocardiogram at that time noted moderate size LA thrombus. 3. Chronic approximate respiratory failure secondary to chronic COPD and chronic heart failure with preserved ejection fraction-on 6 L nasal cannula at baseline. Repeat home O2 testing prior to discharge. Currently on baseline requirements. 4. Type 2 diabetes [id number] with sliding scale insulin. 5. Hypertension-stable, continue amlodipine. 6. Hyperlipidemia-continue statin. 7. Chronic atrial fibrillation-rate controlled, on Coumadin. Not on rate control regimen. 8. Chronic COPD-as needed albuterol aerosol. 9. Morbid obesity-encouraged diet and lifestyle modifications. 10. DIEGO-continue home PAP regimen. DVT prophylaxis-coumadin This patient was seen by Penny Robert NP-C under the supervision of Dr. Wheeler. Documented by User: Dr. Chung Wheeler MD 05/01/21 14:05 Subjective Subjective Patient sleeping when I went into the room. She woke up although feels sleepy. Short of breath, tachycardic. On 7 L of oxygen. Denies chest pain or pressure. Objective Data Lab / Micro Data Result Diagrams: 05/01/21 05:23 05/01/21 05:23 Physical Exam Narrative General: Sleepy, drowsy HEENT: Atraumatic, PERRLA, EOMI, Normocephalic Oral: No Gingival or Mucosal Lesions/ Ulcerations Neck: Supple, No JVD, Negative Carotid Bruits Lungs: Air entry diminished in bilateral lung bases. Bilateral expiratory rhonchi Cardiovascular: Sinus tachycardic, PVCs. Normal S1, Normal S2, LLSB systolic murmur. Abdomen: Bowel Sounds Present, Soft, Non Tender, Non-Distended : No renal angle tenderness. No suprapubic tenderness. Extremities: Fatty tissue nonpitting edema over knees and thigh. Skin: No ulcer. Musculoskeletal: No Tenderness to Palpation of Joints or Extremities Neurological: Cranial nerves II-XII grossly intact, DTR 2+/4 and Symmetrical, Neuro grossly intact Psych/Mental Status: Drowsy. Assessment & Plan Assessment/Plan PLAN: This patient was seen in conjunction with Penny WALDRON. I have independently interviewed and examined the patient and reviewed pertinent history, examination findings, laboratory and plan of management. I have reviewed the note and agree with the documented findings with the few additional points. In brief, patient is admitted for acute on chronic HFpEF/diastolic heart failure: Patient last echo in March 2021 shows EF 55 to 60%. Moderate sized LA thrombus. Patient on warfarin. INR 2.7. Heart failure core measures including intake and output, fluid restriction less than 1500 mL, daily weight monitoring, kidney and electrolytes monitoring. Continue Lasix. Metoprolol stress patient is sinus tachycardic. Chronic hypoxic respiratory failure on 6 L of oxygen. Acute kidney injury on CKD stage IV, cardiorenal disease. Dr. Lind is consulted. Paroxysmal A. fib Other comorbidities as mentioned above I have discussed my assessment with [employer]CH[employer]IC, Penny and orders have been reviewed. Charges/Coding Visit Charges Inpatient E&M: 76226 Subs Hosp L2
[2021-05-01] MEDS: Metoprolol Tartrate 25 MG Tablet PO (15:15)
[2021-05-01] MEDS: Insulin Lispro 100 UNIT/ML INSULN.PEN SC (16:28)
[2021-05-01 17:26] LABS: Bedside Glucose 160 mg/dL (70-110)
--- NOTE | 2021-05-01 19:30 | NURSING ---
Dr Antony was notified of pt's increased lethargy, need to place in avaps due to inability to maintain o2 sat on bipap. Order received for abg's and covid test-pcr. Respiratory therapy was notified. Pt was placed on stepdown monitor.
--- NOTE | 2021-05-01 20:00 | CPS ---
critical results called to MACHINE JOINER CEMENTER chapito at 2000 on 05/01/21
[2021-05-01 20:02] LABS: Allen Test Positive; Base Excess 3 mmol/L (-2 to +2); Blood Gas Specimen Type ART; PO2 133 mmHG (75-100); SITE R Radial; SO2 98 % (95-99); Total Carbon Dioxide 33 mmol/L; pCO2 77.5 mmHg (35-45); pH 7.21 (7.35-7.45)
--- NOTE | 2021-05-01 20:04 | PCS.PANDOC ---
PANDEMIC DOCUMENTATION INITIATED: Date: 04/10/2021 Time: 190
--- NOTE | 2021-05-01 20:11 | PCS.PANDOC ---
PANDEMIC DOCUMENTATION INITIATED: Date: 04/10/2021 Time: 190
[2021-05-01 21:16] LABS: Bedside Glucose 130 mg/dL (70-110)
[2021-05-02] VITALS (40 sets, daily range): BP systolic 72–124; BP diastolic 36–100; PULSE 68–134; RESP 14–26; TEMP 36.4–37; O2SAT 74–97
[2021-05-02 06:33] LABS: Absolute Lymphocyte Count 1.76 X10^3/uL (0.83-4.51); Absolute Neutrophil Count 3.2 X10^3/uL (2.0-7.7); Basophil# 0.01 X10^3/uL; Basophil% 0.2 % (0-1); Eosinophil# 0.07 X10^3/uL; Eosinophils% 1.3 % (0-5); Hematocrit 35.7 % (37-47); Hemoglobin 10.2 g/dL (12.0-15.0); Lymphocyte # 1.76 X10^3/ul (0.83-4.51); Lymphocyte % 31.7 % (19-41); Mean Corp Hgb Conc 28.6 g/dL (32-36); Mean Corpuscular Hgb 29.6 pg (27.0-32.0); Mean Corpuscular Volume 103.5 fL (81-99); Monocyte# 0.54 X10^3/uL; Monocyte% 9.7 % (0-10); NRBC Flagged by Analyzer 0 % (0-5); Neutrophil # 3.16 X10^3/uL (2.7-7.7); Neutrophil % 56.9 % (47-70); Platelet Count 156 K/mm3 (150-450); RBC Distribution Width CV 14.7 % (11.6-14.6); RBC Distribution Width SD 55.6 fl (35.1-43.9); Red Blood Count 3.45 M/mm3 (4.2-5.4); White Blood Count 5.6 K/mm3 (4.4-11.0)
[2021-05-02 06:51] LABS: Bedside Glucose 80 mg/dL (70-110)
[2021-05-02 06:58] LABS: Anion Gap 3 (5-15); BUN 63 mg/dL (7-18); BUN/Creat Ratio 17.6 RATIO (10-20); Calcium,Total 8.4 mg/dL (8.5-10.1); Chloride 106 mmol/L (98-107); Creatinine, Serum 3.57 mg/dL (0.55-1.02); EST Glomerular Filtration Rate 14 mL/min (>60); Est Glom Filt Rate - Afr Amer 16 mL/min (>60); Estimated Creatinine Clearance 14.67 ml/min; Glucose 93 mg/dL (74-106); Potassium 4.4 mmol/L (3.5-5.1); Sodium Level 138 mmol/L (136-145)
[2021-05-02 07:06] LABS: International Normalized Ratio 2.8; Prothrombin Time (Protime)PT. 28.5 SECONDS (11.7-14.9)
[2021-05-02] MEDS: Gabapentin 100 MG Capsule 200 MG PO ×3 (08:29→15:59)
[2021-05-02] MEDS: Metoprolol Tartrate 25 MG Tablet PO ×2 (08:30→22:53)
[2021-05-02] MEDS: Nystatin Powder 15gm Bottle 1 APPLIC TOPICAL ×2 (08:30→22:54)
[2021-05-02] MEDS: Loratadine 10 MG Tablet PO (08:30)
[2021-05-02] MEDS: amLODIPine 5 MG Tablet PO (08:31)
[2021-05-02] MEDS: Sertraline 50 MG Tablet PO (08:31)
[2021-05-02] MEDS: LINAGLIPTIN 5 MG TABLET PO (08:31)
[2021-05-02] MEDS: Furosemide 40 MG/4 ML Vial IV ×2 (08:31→17:20)
[2021-05-02] MEDS: 0.9% Saline Lock 10 ML Syringe IV ×2 (08:31→17:20)
--- NOTE | 2021-05-02 09:35 | CASEMGMT ---
Assessment- SW completed assessment with patient. SW also confirmed addresses and phone numbers. Patient was sitting up in bed. She was alert and oriented X3 Living situation- Patient lives with her significant other in a 1 level apartment. There are 2 entry steps. PCP: Marshall Baltazar Specialists: Nephrology-Dr Lind and Pulmonary- Dr Campos [facility]acy: [facility] DME: rollator and O2 6L from [employer] ADL's/IADL's: Patient states she is normally independent with bathing,dressing, toileting, bills, and medications. She uses her walker to get around. She does not drive. Past SNF/rehab: None Past HH: None LW: None POA: None Plan: Patient states she will likely go to a shelter. SW provided a list of SNF providers including quality and resource use data and consistent with the patient?s preferred geographic region, medical needs, and insurance network. Britni STROUD MSW
--- NOTE | 2021-05-02 11:10 | PCM.CONS.R ---
Assessment & Plan Assessment/Plan (1) Acute renal failure superimposed on stage 4 chronic kidney disease: QUALIFIERS: Acute renal failure type: unspecified Qualified Code(s): N17.9 - Acute kidney failure, unspecified; N18.4 - Chronic kidney disease, stage 4 (severe) PLAN: rising creatinine from iv lasix, Suspect most of respriatory issue from cor pulmonale, COPD, hypercapnea,not CHF since BNP low. may need to start gentle hydration (2) CKD stage 4 due to type 2 diabetes mellitus: PLAN: eGFR 26cc/min (3) Acute respiratory failure with hypoxia and hypercarbia: PLAN: poor mentation, needs bipap, most of respiratory issue due to hypoventilatory state. Consider pulmonary consult (4) Cor pulmonale: (5) On home oxygen therapy: (6) Hypertension: (7) DM type 2 (diabetes mellitus, type 2): QUALIFIERS: Diabetes mellitus complication detail: with nephropathy (8) Paroxysmal A-fib: (9) DIEGO (obstructive sleep apnea): (10) Debility: HPI Consult Data Date of Consult: 05/02/21 HPI Narrative HPI Narrative: ELINA MEZA, is a 70 F who presents to ER on 04/29 for persistent leg swelling with weight gain, chronic shortness of breath. She has cor pulmonale with afib, HTN, diabetes. She was recently hospitalized on March 30 to for frequent falls, cor pulmonale and discharged on lasix 40mg twice a day until she ran out. She had lasix 40mg daily renewed by her pcp. She was seen on follow up in my office on 04/25. She had persistent edema from pulmonary hypertension with creatinine 2.34 on 04/25. We discussed preparing for dialysis and encouraged to attend dialysis education at [facility] dialysis. Creatinine during hospitalization was 3.42 on admission to 3.0 now 3.57 on iv lasix 40mg bid. BNP 105 on 04/29. She was hypercapneic on ABG. She is a poor historian, slow to answer with altered mentation. She is ordered BiPAP but currently on 7L oxygen. CXR reviewed. Urine output poor despite iv lasix. [facility] Medical History (Updated 05/02/21 @ 16:[address] Sara Lind, ) Acute respiratory failure with hypoxia Allergic rhinitis Arthritis Asthma Atrial fibrillation Cellulitis of right lower extremity Chronic kidney disease (CKD) stage G1/A2, glomerular filtration rate (GFR) equal to or greater than 90 mL/min/1.73 square meter and albuminuria creatinine ratio between 30-299 mg/g CKD (chronic kidney disease), stage IV COPD (chronic obstructive pulmonary disease) Cor pulmonale Depression Diabetes Diabetic neuropathy associated with type 2 diabetes mellitus Hay fever Hyperlipidemia Hypertension Hypertension Knee pain Morbid obesity On home oxygen therapy DIEGO (obstructive sleep apnea) Paroxysmal A-fib Right leg pain Right-sided congestive heart failure Secondary pulmonary arterial hypertension Sleep apnea Venous insufficiency (chronic) (peripheral) Vitamin D deficiency Home Medications gabapentin 600 mg PO TIDCM 11/08/14 [History Last Taken 04/29/21] sertraline 50 mg PO DAILY 11/08/14 [History Last Taken 04/29/21] simvastatin 20 mg PO QHS 11/08/14 [History Last Taken 04/28/21] ergocalciferol (vitamin D2) 1,250 mcg (50,000 unit) capsule 50,000 unit PO QMONTH 30 Days #1 01/13/18 [History Last Taken 06/26/20] amlodipine 5 mg PO DAILY 03/31/18 [History Last Taken 04/29/21] acetaminophen 1,000 mg PO Q8H PRN PRN tab 04/14/18 [Rx Last Taken 07/08/20] insulin glargine 100 unit/mL (3 mL) subcutaneous pen 74 unit SC HS ml 05/22/18 [History Last Taken 07/07/20] warfarin 2.5 mg tablet 2.5 mg PO DAILY 05/22/18 [History Last Taken 04/29/21] albuterol sulfate 2 inh INHALATION 4X/DAY PRN PRN 03/18/21 [History Last Taken Unknown] linagliptin 5 mg PO DAILY 03/30/21 [History Last Taken 04/29/21] losartan 100 mg PO DAILY 03/30/21 [History Last Taken Unknown] loratadine 10 mg capsule 10 mg PO DAILY 04/26/21 [History Last Taken 04/29/21] furosemide [Lasix] 40 mg PO DAILY 04/29/21 [History Last Taken 04/29/21] Allergy/AdvReac Type Severity Reaction Status Date / Time aspirin Allergy Unknown Itching Verified 04/30/21 00:19 ibuprofen Allergy Itching Verified 04/30/21 00:19 sulfamethoxazole Allergy cant Verified 04/30/21 00:19 [From ] remember trimethoprim [From ] Allergy cant Verified 04/30/21 00:19 remember Family History Mother CAD (coronary artery disease) Hypertension Father CAD (coronary artery disease) Hypertension Other Diabetes Heart disease Surgical History History of knee replacement procedure of right knee Hx of section Social History household members: spouse, family and children housing: house current occupational status: unemployed and retired Smoking Status: Never smoker ROS ROS Narrative limited historian due to encephalopathy, hypercapnea Review of Systems ROS Unobtainable: due to encephalopathy Constitutional Constitutional: Denies fever(s) Cardiovascular Cardiovascular: Reports dyspnea on exertion; Denies chest pain Respiratory/Chest Respiratory/Chest: Reports dry cough and shortness of breath at rest Gastrointestinal Gastrointestinal: Denies diarrhea, nausea or vomiting Genitourinary Genitourinary: Reports other Details: decreased urine output Musculoskeletal Musculoskeletal: Reports other Details: gen weakness Psychiatric Psychiatric: Reports confusion Hematologic/Lymphatic Hematologic/Lymphatic: Reports anemia Physical Exam Const Constitutional Narrative: poor historian, encephalopathic Resp Auscultation: diminished lung sounds Cardio Cardio Narrative: irregular rate GI non-tender and non-distended GI Narrative: obese Palpation: soft Bladder / Kidney Exam: catheter in place Extremity General Extremity: edema bilateral (mild) Skin no wounds Neuro Neuro Narrative: slow responsiveness Sensorium / Orientation: somnolent Lab / Micro Data Result Diagrams: 05/02/21 06:05 05/02/21 06:05 Labs: Laboratory Results - last 24 hr 05/01/21 11:34: POC Glucose 129 H 05/01/21 16:26: POC Glucose 160 H 05/01/21 19:52: COVID-19 (АНДРЕЙ) Not Detected 05/01/21 21:01: POC Glucose 130 H 05/02/21 06:05: PT 28.5 H, INR 2.8 05/02/21 06:05: WBC 5.6, RBC 3.45 L, Hgb 10.2 L, Hct 35.7 L, MCV 103.5 H, MCH 29.6, MCHC 28.6 L, RDW Std Deviation 55.6 H, RDW Coeff of Angelika 14.7 H, Plt Count 156, MPV 11.0, Immature Gran % (Auto) 0.200, Neut % (Auto) 56.9, Lymph % (Auto) 31.7, [place] % (Auto) 9.7, Eos % (Auto) 1.3, Baso % (Auto) 0.2, Absolute Neuts (auto) 3.2, Absolute Lymphs (auto) 1.76, Nucleated RBC % 0 05/02/21 06:05: Sodium 138, Potassium 4.4, Chloride 106, Carbon Dioxide 29.0, Anion Gap 3 L, BUN 63 H, Creatinine 3.57 H, Estim Creat Clear Calc 14.67, Est GFR (MDRD) Af Amer 16 L, Est GFR (MDRD) Non-Af 14 L, BUN/Creatinine Ratio 17.6, Glucose 93, Calcium 8.4 L 05/02/21 06:44: POC Glucose 80 Micro: Microbiology 05/01/21 17:30 Nasal Secretion SARS-CoV-2 Antigen (Rapid) - Final ABG Data ABG results: ABG 05/01/21 19:56 Specimen Type ART Sample Site R Radial pH 7.21 L Bicarbonate Actual 31.0 H Total CO2 33 Base Excess 3 H O2 Saturation 98 ABG pCO2 77.5 H* ABG pO2 133 H Saroj Test Positive Crit Call To/Read Back Yes Clinical Comments
[2021-05-02] MEDS: Insulin Lispro 100 UNIT/ML INSULN.PEN SC ×2 (11:20→15:57)
[2021-05-02 11:31] LABS: Bedside Glucose 168 mg/dL (70-110)
--- NOTE | 2021-05-02 12:08 | CASEMGMT ---
SW spoke with patient, her daughter, and significant other per their request. Patient's significant other asked about how to get a scooter, ramp, and lift chair at home. SW told him that the scooter would have to go through her primary care doctor. SW also mentioned [facility] and their Pass[facility] program. SW told them SW can make a referral to [facility]. They will do an assessment to determine her eligibility. SW told her they are able to get services and equipment in patient's homes. However, it is not immediate it takes awhile to get the equipment and aides etc. SW asked if they have decided on a shelter. Their first choice was [facility] and second choice is [facility]. SW told them SW will work on referrals to [facility] and [facility]. Britni Arias MSW LUANNE
--- NOTE | 2021-05-02 12:13 | CASEMGMT ---
LIS faxed referral to [facility]. LIS also left a message with [facility] regarding referral. Await their response. Britni Arias RESERVE OPERATOR WRAPPER AND PRESERVER
--- NOTE | 2021-05-02 12:28 | NURSING ---
Pt desatting and tele leads off. RN into room, patient pulled off oxygen and was satting in the 70's. Pulling tele leads off, asking how did I get here. Tele leads replaced, BiPap placed on. Respiratory and battery charger conveyor line notified. Will continue to monitor.
--- NOTE | 2021-05-02 12:47 | PCM.PN.HOSP ---
Documented by User: Isaac ROLLINS 05/02/21 13:02 Subjective Subjective Patient is a 70-year-old female lying in bed, alert and orient x3. Patient reports mild shortness of breath, although feels this has improved from admission. Denies development of any new symptoms. Denies chest pain, palpitations, hemoptysis, sputum production, fever, chills, N/V/D. Objective Data Objective Data Vital Signs: Vital Signs Temp Pulse Resp BP Pulse Ox 98.1 F 134 H 21 H 113/74 74 05/02/21 08:00 05/02/21 12:24 05/02/21 12:00 05/02/21 12:00 05/02/21 12:24 Oxygen Flow Rate (L/min) 7 Oxygen Delivery Method Room Air Weight: 361 lb 1.875 oz Body Mass Index (BMI) 55.4 Intake & Output: Intake and Output for Last 24 Hours 04/30/21 05/01/21 05/02/21 23:59 23:59 23:59 Intake Total 630 / 630 420 / 420 240 / 240 Output Total 750 / 750 125 / 125 Balance 630 / 430 -330 / -330 115 / 115 Lab / Micro Data Result Diagrams: 05/02/21 06:05 05/02/21 06:05 Labs: Laboratory Results - last 24 hr 05/01/21 16:26: POC Glucose 160 H 05/01/21 19:52: COVID-19 (АНДРЕЙ) Not Detected 05/01/21 21:01: POC Glucose 130 H 05/02/21 06:05: PT 28.5 H, INR 2.8 05/02/21 06:05: WBC 5.6, RBC 3.45 L, Hgb 10.2 L, Hct 35.7 L, MCV 103.5 H, MCH 29.6, MCHC 28.6 L, RDW Std Deviation 55.6 H, RDW Coeff of Angelika 14.7 H, Plt Count 156, MPV 11.0, Immature Gran % (Auto) 0.200, Neut % (Auto) 56.9, Lymph % (Auto) 31.7, [place] % (Auto) 9.7, Eos % (Auto) 1.3, Baso % (Auto) 0.2, Absolute Neuts (auto) 3.2, Absolute Lymphs (auto) 1.76, Nucleated RBC % 0 05/02/21 06:05: Sodium 138, Potassium 4.4, Chloride 106, Carbon Dioxide 29.0, Anion Gap 3 L, BUN 63 H, Creatinine 3.57 H, Estim Creat Clear Calc 14.67, Est GFR (MDRD) Af Amer 16 L, Est GFR (MDRD) Non-Af 14 L, BUN/Creatinine Ratio 17.6, Glucose 93, Calcium 8.4 L 05/02/21 06:44: POC Glucose 80 05/02/21 11:19: POC Glucose 168 H Micro: Microbiology 05/01/21 17:30 Nasal Secretion SARS-CoV-2 Antigen (Rapid) - Final ABG Data ABG results: ABG 05/01/21 19:56 Specimen Type ART Sample Site R Radial pH 7.21 L Bicarbonate Actual 31.0 H Total CO2 33 Base Excess 3 H O2 Saturation 98 ABG pCO2 77.5 H* ABG pO2 133 H Saroj Test Positive Crit Call To/Read Back Yes Clinical Comments Physical Exam Const alert, oriented x3 and no apparent distress HEENT head/scalp atraumatic and moist oral mucous membranes Head and Scalp: normocephalic Eyes PERRL, EOMs intact bilaterally and conjunctivae normal Neck no lymphadenopathy, supple and no JVD Resp Effort and Inspection: tachypneic and respiratory distress Auscultation: diminished lung sounds Cardio no murmurs and no JVD Rate: tachycardic Rhythm: abnormal rhythm GI normal to inspection, nondistended, normoactive bowel sounds, soft to palpation and non-tender Extremity normal to inspection, full ROM and no clubbing, cyanosis or edema Skin no rashes or lesions noted, no wounds, skin turgor normal and no jaundice Neuro CN's II-XII intact bilaterally Psych affect normal Assessment & Plan Assessment/Plan (1) Acute respiratory failure with hypoxia: (2) Acute kidney injury: PLAN: Day 2 Discharge planning: Patient to discharge home at this time, no home health care needs or additional therapies identified. 1) ESPERANZA on CKD stage IV Creatinine worse today relative to yesterday, currently 3.5. Unclear etiology as diuresis has not improved creatinine as would be expected with cardiorenal syndrome. Patient follows with Dr. Lind for nephrology. Plan; nephrology consult ordered, continue to trend BMP, avoid nephrotoxins. 2) acute on chronic CHF exacerbation with preserved ejection fraction Oxygen saturations variable between 75 to 90% on 7 L via nasal cannula, despite diuretic therapy. Echocardiogram obtained on 03/31/2021 demonstrated an estimated EF of 55 to 60% and noted a moderately sized left atrial thrombus. Patients home medication regimen includes Lasix 40 mg p.o. daily and losartan 100 g p.o. daily. Not on beta-andres at home. Plan; continue IV Lasix 40 mg twice daily, initiate metoprolol, hold losartan, nephrology consult obtained as above. 3) DM2 Continue Accu-Cheks with sliding scale insulin. 4) HTN Stable, continue amlodipine and metoprolol as above, hold losartan. 5) hyperlipidemia Continue statin. 6) chronic atrial fibrillation Aberrant runs of sinus tachycardia observed on telemetry monitoring. Metoprolol initiated. Patient is on Coumadin for anticoagulation. Not on rate control at home. 7) chronic COPD Initiate scheduled duo nebs. Continue albuterol. 8) morbid obesity Therapeutic lifestyle changes and weight loss encouraged. 9) DIEGO Continue home CPAP regimen. DVT prophylaxis - coumadin Patient seen by Isaac Harris PA-C, under the supervision of Dr. Wheeler. Documented by User: Dr. Chung Wheeler MD 05/02/21 15:19 Subjective Subjective Patient had severe bout of hypoxia pulse ox 81% on 5 L of oxygen. Patient was put on BiPAP/AVAPS 40% FiO2. Patient has Wayne cath. Patient more drowsy and lethargic. Objective Data Lab / Micro Data Result Diagrams: 05/02/21 06:05 05/02/21 06:05 Physical Exam Narrative General: Awake. Oriented x3. Was lethargic last night. HEENT: Atraumatic, PERRLA, EOMI, Normocephalic Oral: No Gingival or Mucosal Lesions/ Ulcerations Neck: Supple, No JVD, Negative Carotid Bruits Lungs: Air entry diminished in bilateral lung bases. Bilateral expiratory rhonchi. On AVAPS Cardiovascular: Irregular, sinus tachycardia, PVCs. Normal S1, Normal S2, LLSB systolic murmur. Abdomen: Bowel Sounds Present, Soft, Non Tender, Non-Distended : No renal angle tenderness. No suprapubic tenderness. Extremities: Fatty tissue nonpitting edema over knees and thigh. Skin: No ulcer. Musculoskeletal: No Tenderness to Palpation of Joints or Extremities Neurological: Cranial nerves II-XII grossly intact, DTR 2+/4 and Symmetrical, Neuro grossly intact Psych/Mental Status: Not affect Const alert, oriented x3 and no apparent distress Orientation / Consciousness: awake, oriented to person, oriented to place and oriented to time HEENT normocephalic and moist oral mucous membranes Eyes PERRL, EOMs intact bilaterally and conjunctivae normal Neck no lymphadenopathy Resp clear to auscultation bilaterally Auscultation: diminished lung sounds Cardio regular rate, regular rhythm and no murmurs Cardio Narrative: Atrial fibrillation, rate controlled Peripheral Pulses: pulses 2+ throughout GI normal to inspection, nondistended, normoactive bowel sounds, non-tender and non-distended Extremity normal to inspection General Extremity: edema bilateral lower extremity Details: moderate (Clark wraps in place) Skin no rashes or lesions noted Lesions: no lesions Rashes: no rashes Trauma: no lacerations or abrasions Neuro CN's II-XII intact bilaterally, no focal motor deficits, no sensory deficits noted and deep tendon reflexes 2+ bilaterally Psych mental status grossly normal and affect normal Assessment & Plan Assessment/Plan (1) Acute respiratory failure with hypoxia: PLAN: This patient was seen in conjunction with AYO Layton. I have independently interviewed and examined the patient and reviewed pertinent history, examination findings, laboratory and plan of management. I have reviewed the note and agree with the documented findings with the few additional points. In brief, patient is admitted for acute on chronic HFpEF/diastolic heart failure: Patient last echo in March 2021 shows EF 55 to 60%, moderately dilated RV with systolic dysfunction, dilated IVC and hepatic veins. LA enlarged with mural thrombus. Patient on warfarin. INR 2.7. Heart failure core measures including intake and output, fluid restriction less than 1500 mL, daily weight monitoring, kidney and electrolytes monitoring. Continue Lasix. Metoprolol stress patient is sinus tachycardic. Acute on chronic hypoxic respiratory failure. Oxygen demand increased to NIPPV on BiPAP/AVAPS 50% FiO2. Discussed with respiratory therapist. Acute kidney injury on CKD stage IV, cardiorenal disease. Estimated creatinine clearance about 14 mL/min Zaroxolyn added. Dr. Lind is consulted. Paroxysmal A. fib Other comorbidities as mentioned above I have discussed my assessment with AYO Layton and orders have been reviewed. Charges/Coding Visit Charges Inpatient E&M: 28755 Subs Hosp L2
--- NOTE | 2021-05-02 14:20 | NURSING ---
RN in to see patient, pulled leads off, broke BiPap mask and pulled off spO2 censer. Placed on NC and called respiratory to get new BiPap mask for patient.
--- NOTE | 2021-05-02 15:14 | CASEMGMT ---
LIS received a call from Ayah with [facility] and they can take patient. LIS notified patient. Plan: [facility] when ready Britni STROUD
--- NOTE | 2021-05-02 15:30 | CASEMGMT ---
GORGE ZIEGLER Readmission Review Note: Previous visits: 03/18/21: Weakness, hypoxia. Pt discharged to home with increased home O2 after ED physician discussed with Dr. Campos. Pt to follow-up with Dr. Campos. 03/31 - 04/04/21: Cor pulmonale. a/c hypoxic respiratory failure, acute CHF w/preserved EF, ESPERANZA on CKD, DIEGO: Discharged to home with new lasix prescription for 5 days. f/u appointments with Dr. Lind and her PCP Marshall Baltazar NP. Pt to call for an appointment with Dr. Campos. Follow-up phone call made to pt and pt had not yet called to schedule f/u appt with Dr. Campos. 04/26/21: Pt attended follow-up appointment with ADRIANA Dumas. Compliance w/Pap therapy was reinforced and trying a new mask was discussed. Additional studies and follow-up were scheduled for June and July,. 04/29/21 - present: Pt presented with increased edema of legs, admitted with ESPERANZA on CKD and A/C HFpEF. Lasix dosing noted to have been decreased from BID to QD by PCP. Pt noted previously to live with S.O. and daughter in a first floor apartment. Pt noted to ambulate using a walker but per the ED visit on 03/18, pt is unable to fit walker into the some areas of the home. Pt also has additional DME including shower chair, cane, grab bars, and home O2 through [employer] w/[employer]. Pt's O2 order was updated to 4l/min at rest and 6l/min with exertion at discharge on 04/04. Pt reports at each visit to be getting weaker and family unable to help pt get up after falls. Pt declined HH and SNF at previous visits. Will continue to monitor and assist as needs identified. Arpit Cordova RN CM
[2021-05-02] MEDS: metOLazone 5 MG Tablet PO (15:57)
[2021-05-02 16:11] LABS: Bedside Glucose 177 mg/dL (70-110)
--- NOTE | 2021-05-02 17:20 | NURSING ---
Tele monitor showed patient's pulse ox was 75%. RN in room to assess patient, oxygen was off and patient pulse ox was 76%. RT in room at this time, patient placed back on BiPap and dose of IV lasix given. Will continue to monitor.
[2021-05-02] MEDS: Atorvastatin Calcium 10 MG Tablet PO (22:53)
[2021-05-02 23:01] LABS: Bedside Glucose 136 mg/dL (70-110)
[2021-05-03] VITALS (26 sets, daily range): BP systolic 97–133; BP diastolic 62–85; PULSE 66–90; RESP 14–22; TEMP 36.5–36.9; O2SAT 91–98
[2021-05-03 06:23] LABS: Absolute Lymphocyte Count 1.63 X10^3/uL (0.83-4.51); Absolute Neutrophil Count 3.6 X10^3/uL (2.0-7.7); Basophil# 0.04 X10^3/uL; Basophil% 0.7 % (0-1); Eosinophil# 0.11 X10^3/uL; Eosinophils% 1.9 % (0-5); Hematocrit 33.9 % (37-47); Hemoglobin 9.8 g/dL (12.0-15.0); Lymphocyte # 1.63 X10^3/ul (0.83-4.51); Lymphocyte % 27.6 % (19-41); Mean Corp Hgb Conc 28.9 g/dL (32-36); Mean Corpuscular Hgb 29.8 pg (27.0-32.0); Mean Platelet Vol. 11.2 fl (6.2-12.0); Monocyte# 0.53 X10^3/uL; NRBC Flagged by Analyzer 0 % (0-5); Neutrophil # 3.57 X10^3/uL (2.7-7.7); Neutrophil % 60.5 % (47-70); Platelet Count 151 K/mm3 (150-450); RBC Distribution Width CV 14.6 % (11.6-14.6); RBC Distribution Width SD 55.2 fl (35.1-43.9); Red Blood Count 3.29 M/mm3 (4.2-5.4); White Blood Count 5.9 K/mm3 (4.4-11.0)
[2021-05-03 06:32] LABS: International Normalized Ratio 3.3; Prothrombin Time (Protime)PT. 32.6 SECONDS (11.7-14.9)
[2021-05-03 06:44] LABS: Anion Gap 6 (5-15); BUN 67 mg/dL (7-18); BUN/Creat Ratio 17.4 RATIO (10-20); Calcium,Total 8.1 mg/dL (8.5-10.1); Chloride 104 mmol/L (98-107); Creatinine, Serum 3.85 mg/dL (0.55-1.02); EST Glomerular Filtration Rate 12 mL/min (>60); Est Glom Filt Rate - Afr Amer 15 mL/min (>60); Glucose 117 mg/dL (74-106); Magnesium 2.4 mg/dL (1.6-2.6); Potassium 4.5 mmol/L (3.5-5.1); Sodium Level 138 mmol/L (136-145)
[2021-05-03 06:46] LABS: Bedside Glucose 127 mg/dL (70-110)
[2021-05-03] MEDS: Ipratropium/Albuterol Sulfate 3 ML AMPUL.NEB INHALATION ×3 (06:53→19:12)
[2021-05-03] MEDS: Loratadine 10 MG Tablet PO (08:54)
[2021-05-03] MEDS: Gabapentin 100 MG Capsule 200 MG PO ×3 (08:54→16:52)
[2021-05-03] MEDS: LINAGLIPTIN 5 MG TABLET PO (08:54)
[2021-05-03] MEDS: Metoprolol Tartrate 25 MG Tablet PO ×2 (08:54→20:24)
[2021-05-03] MEDS: Furosemide 40 MG/4 ML Vial IV (08:55)
[2021-05-03] MEDS: Sertraline 50 MG Tablet PO (08:55)
[2021-05-03] MEDS: amLODIPine 5 MG Tablet PO (08:55)
--- NOTE | 2021-05-03 08:57 | PN.RENAL_ITS ---
Subjective Subjective more alert today, denies SOB. Wore BIPAP majority of day and night yesterday. Poor urine output with rising creatinine on iv lasix. Start gentle hydration Objective Data Objective Data Vital Signs: Vital Signs Temp Pulse Resp BP Pulse Ox 97.9 F 86 21 H 133/85 H 97 05/03/21 08:00 05/03/21 08:00 05/03/21 08:00 05/03/21 08:00 05/03/21 08:00 Oxygen Flow Rate (L/min) 6 Oxygen Delivery Method Nasal Cannula Weight: 163.9 kg Body Mass Index (BMI) 55.4 Intake & Output: Intake and Output for Last 24 Hours 05/01/21 05/02/21 05/03/21 23:59 23:59 23:59 Intake Total 420 / 420 440 / 440 50 / 50 Output Total 750 / 750 450 / 450 175 / 175 Balance -330 / -330 -10 / -10 -125 / -125 Lab / Micro Data Result Diagrams: 05/03/21 04:56 05/03/21 04:56 Labs: Laboratory Results - last 24 hr 05/02/21 11:19: POC Glucose 168 H 05/02/21 15:56: POC Glucose 177 H 05/02/21 22:45: POC Glucose 136 H 05/03/21 04:56: PT 32.6 H, INR 3.3 05/03/21 04:56: WBC 5.9, RBC 3.29 L, Hgb 9.8 L, Hct 33.9 L, MCV 103.0 H, MCH 29.8, MCHC 28.9 L, RDW Std Deviation 55.2 H, RDW Coeff of Angelika 14.6, Plt Count 151, MPV 11.2, Immature Gran % (Auto) 0.300, Neut % (Auto) 60.5, Lymph % (Auto) 27.6, [place] % (Auto) 9.0, Eos % (Auto) 1.9, Baso % (Auto) 0.7, Absolute Neuts (auto) 3.6, Absolute Lymphs (auto) 1.63, Nucleated RBC % 0 05/03/21 04:56: Sodium 138, Potassium 4.5, Chloride 104, Carbon Dioxide 28.0, Anion Gap 6, BUN 67 H, Creatinine 3.85 H, Estim Creat Clear Calc 13.60, Est GFR (MDRD) Af Amer 15 L, Est GFR (MDRD) Non-Af 12 L, BUN/Creatinine Ratio 17.4, Glucose 117 H, Calcium 8.1 L, Magnesium 2.4 05/03/21 06:36: POC Glucose 127 H Micro: Microbiology 05/01/21 17:30 Nasal Secretion SARS-CoV-2 Antigen (Rapid) - Final Physical Exam Const alert and oriented x3 Resp clear to auscultation bilaterally Cardio regular rate GI non-tender Palpation: soft Extremity Extremity Narrative: mild edema Assessment & Plan Assessment/Plan (1) Acute renal failure superimposed on stage 4 chronic kidney disease: QUALIFIERS: Acute renal failure type: unspecified Qualified Code(s): N17.9 - Acute kidney failure, unspecified; N18.4 - Chronic kidney disease, stage 4 (severe) PLAN: rising creatinine from iv lasix, poor urine output. Start gentle hydration. Suspect most of respiratory issue from cor pulmonale, COPD, hypercapnea,not CHF since BNP low. (2) CKD stage 4 due to type 2 diabetes mellitus: PLAN: eGFR 26cc/min (3) Acute respiratory failure with hypoxia and hypercarbia: PLAN: repeat abg (4) Cor pulmonale: (5) On home oxygen therapy: (6) Hypertension: (7) DM type 2 (diabetes mellitus, type 2): QUALIFIERS: Diabetes mellitus complication detail: with nephropathy (8) Paroxysmal A-fib: (9) DIEGO (obstructive sleep apnea): (10) Debility:
[2021-05-03] MEDS: 0.9% Normal Saline 1,000 ML 100 ML IV ×2 (10:11→22:27)
[2021-05-03] MEDS: Nystatin Powder 15gm Bottle 1 APPLIC TOPICAL ×2 (10:21→20:23)
[2021-05-03 10:31] LABS: Allen Test Positive; Base Excess 3 mmol/L (-2 to +2); Bicarbonate 29.9 mmol/L (22-26); Blood Gas Specimen Type ART; O2 Delivery Device Cannula; PO2 74 mmHG (75-100); SITE R Radial; SO2 93 % (95-99); Total Carbon Dioxide 32 mmol/L; pCO2 61.5 mmHg (35-45)
--- NOTE | 2021-05-03 11:05 | PCM.PN.HOSP ---
Documented by User: Isaac ROLLINS 05/03/21 11:25 Subjective Subjective Patient is a 70-year-old female who is comfortably resting in bed, alert and orient x3. Patient reports that her shortness of breath is improved from yesterday, denies development of any new symptoms overnight. Denies chest pain, shortness of breath, palpitations, hemoptysis, sputum production, fever, chills, N/V/D. Objective Data Objective Data Vital Signs: Vital Signs Temp Pulse Resp BP Pulse Ox 97.9 F 88 18 104/69 93 05/03/21 08:00 05/03/21 10:00 05/03/21 10:00 05/03/21 10:00 05/03/21 10:00 Oxygen Flow Rate (L/min) 6 Oxygen Delivery Method Nasal Cannula Weight: 361 lb 5.402 oz Body Mass Index (BMI) 55.4 Intake & Output: Intake and Output for Last 24 Hours 05/01/21 05/02/21 05/03/21 23:59 23:59 23:59 Intake Total 420 / 420 440 / 440 50 / 50 Output Total 750 / 750 450 / 450 175 / 175 Balance -330 / -330 -10 / -10 -125 / -125 Lab / Micro Data Result Diagrams: 05/03/21 04:56 05/03/21 04:56 Labs: Laboratory Results - last 24 hr 05/02/21 11:19: POC Glucose 168 H 05/02/21 15:56: POC Glucose 177 H 05/02/21 22:45: POC Glucose 136 H 05/03/21 04:56: PT 32.6 H, INR 3.3 05/03/21 04:56: WBC 5.9, RBC 3.29 L, Hgb 9.8 L, Hct 33.9 L, MCV 103.0 H, MCH 29.8, MCHC 28.9 L, RDW Std Deviation 55.2 H, RDW Coeff of Angelika 14.6, Plt Count 151, MPV 11.2, Immature Gran % (Auto) 0.300, Neut % (Auto) 60.5, Lymph % (Auto) 27.6, [place] % (Auto) 9.0, Eos % (Auto) 1.9, Baso % (Auto) 0.7, Absolute Neuts (auto) 3.6, Absolute Lymphs (auto) 1.63, Nucleated RBC % 0 05/03/21 04:56: Sodium 138, Potassium 4.5, Chloride 104, Carbon Dioxide 28.0, Anion Gap 6, BUN 67 H, Creatinine 3.85 H, Estim Creat Clear Calc 13.60, Est GFR (MDRD) Af Amer 15 L, Est GFR (MDRD) Non-Af 12 L, BUN/Creatinine Ratio 17.4, Glucose 117 H, Calcium 8.1 L, Magnesium 2.4 05/03/21 06:36: POC Glucose 127 H Micro: Microbiology 05/01/21 17:30 Nasal Secretion SARS-CoV-2 Antigen (Rapid) - Final ABG Data ABG results: ABG 05/03/21 10:26 Specimen Type ART Sample Site R Radial pH 7.30 L Bicarbonate Actual 29.9 H Total CO2 32 Base Excess 3 H O2 Saturation 93 L ABG pCO2 61.5 H ABG pO2 74 L Saroj Test Positive O2 Delivery Device Cannula Liter Flow 6.0 Physical Exam Const alert, oriented x3 and no apparent distress HEENT head/scalp atraumatic, moist oral mucous membranes and oropharynx normal Head and Scalp: normocephalic Eyes PERRL, EOMs intact bilaterally and conjunctivae normal Neck no lymphadenopathy, supple and no JVD Resp normal respiratory effort, normal air movement and no retractions Resp Narrative: At baseline currently satting at 93% on 6 L via nasal cannula. Auscultation: diminished lung sounds Cardio regular rate, regular rhythm, no murmurs and no JVD GI normal to inspection, nondistended, normoactive bowel sounds, soft to palpation and non-tender Extremity normal to inspection, full ROM and no clubbing, cyanosis or edema Skin no rashes or lesions noted, no wounds, skin turgor normal and no jaundice Neuro CN's II-XII intact bilaterally Psych affect normal Assessment & Plan Assessment/Plan (1) Acute respiratory failure with hypoxia and hypercarbia: (2) Acute kidney injury: PLAN: Day 3 Discharge planning: Plan is for [facility] at discharge. 1) ESPERANZA on CKD stage IV Creatinine worse today relative to yesterday, currently 3.85. Nephrology following, believe rising creatinine is the result of diuresis, gentle hydration per Nephrologists. Patient follows with Dr. Lind for nephrology as an outpatient. Plan; remain admitted until creatinine is responsive to hydration, gentle hydration, continue to trend BMP, avoid nephrotoxins, diuretics discontinued. 2) acute on chronic CHF exacerbation with preserved ejection fraction Stable, patient is at baseline currently satting 93% at 6 L via nasal cannula. Echocardiogram obtained on 03/31/2021 demonstrated an estimated EF of 55 to 60% and noted a moderately sized left atrial thrombus. Patients home medication regimen includes Lasix 40 mg p.o. daily and losartan 100 g p.o. daily. Not on beta-andres at home. Plan; IV Lasix discontinued at this time, initiate metoprolol, hold losartan, nephrology consult obtained as above. 3) DM2 Continue Accu-Cheks with sliding scale insulin. 4) HTN Stable, continue amlodipine and metoprolol as above, hold losartan. 5) hyperlipidemia Continue statin. 6) chronic atrial fibrillation Aberrant runs of sinus tachycardia observed on telemetry monitoring. Metoprolol initiated. Patient is on Coumadin for anticoagulation. Not on rate control at home. 7) chronic COPD Initiate scheduled duo nebs. Continue albuterol. 8) morbid obesity Therapeutic lifestyle changes and weight loss encouraged. 9) DIEGO Continue home CPAP regimen. DVT prophylaxis - Coumadin Patient seen by Isaac Harris PA-C, under the supervision of Dr. Wheeler. Documented by User: Dr. Chung Wheeler MD 05/03/21 16:30 Subjective Subjective Patient seems more comfortable in regards to breathing today. Seen by remelt sugar boiler and seems patient was over diuresed. On low-dose IV fluid Objective Data Lab / Micro Data Result Diagrams: 05/03/21 04:56 05/03/21 04:56 Physical Exam Narrative General: Awake. Oriented x3. HEENT: Atraumatic, PERRLA, EOMI, Normocephalic Oral: No Gingival or Mucosal Lesions/ Ulcerations Neck: Supple, No JVD, Negative Carotid Bruits Lungs: Air entry diminished in bilateral lung bases. Lungs clear. On AVAPS Cardiovascular: Irregular, sinus tachycardia, PVCs. Normal S1, Normal S2, LLSB systolic murmur. Abdomen: Bowel Sounds Present, Soft, Non Tender, Non-Distended : No renal angle tenderness. No suprapubic tenderness. Extremities: Fatty/nonpitting edema over knees and thigh. Skin: No ulcer. Musculoskeletal: No Tenderness to Palpation of Joints or Extremities Neurological: Cranial nerves II-XII grossly intact, DTR 2+/4 and Symmetrical, Neuro grossly intact Psych/Mental Status: Not affect Assessment & Plan Assessment/Plan (1) Acute respiratory failure with hypoxia: PLAN: This patient was seen in conjunction with AYO Layton. I have independently interviewed and examined the patient and reviewed pertinent history, examination findings, laboratory and plan of management. I have reviewed the note and agree with the documented findings with the few additional points. In brief, patient is admitted for acute on chronic HFpEF/diastolic heart failure: Patient last echo in March 2021 shows EF 55 to 60%, moderately dilated RV with systolic dysfunction, dilated IVC and hepatic veins. LA enlarged with mural thrombus. INR 3.3. Hold Coumadin for tonight. Patient seems dehydrated from low-dose IV fluid. Heart failure core measures including intake and output, fluid restriction less than 1500 mL, daily weight monitoring, kidney and electrolytes monitoring. Lasix on hold. On metoprolol. Acute on chronic hypoxic respiratory failure. Oxygen demand increased to NIPPV on BiPAP/AVAPS 50% FiO2. Discussed with respiratory therapist. Acute kidney injury on CKD stage IV, cardiorenal disease. Estimated creatinine clearance about 14 mL/min Zaroxolyn added. Dr. Lind is consulted. Paroxysmal A. fib Other comorbidities as mentioned above I have discussed my assessment with AYO Layton and orders have been reviewed. Charges/Coding Visit Charges Inpatient E&M: 08747 Subs Hosp L2
[2021-05-03 11:10] LABS: Bedside Glucose 158 mg/dL (70-110)
--- NOTE | 2021-05-03 11:16 | CASEMGMT ---
[facility] palliative screening tool completed and pt does qualify for palliative referral. Dr. Wheeler is agreeable, order placed and referral faxed. Call to palliative to notify. Truman PENNINGTON CM
[2021-05-03] MEDS: Insulin Lispro 100 UNIT/ML INSULN.PEN SC ×3 (11:38→20:24)
--- NOTE | 2021-05-03 12:01 | CASEMGMT ---
SW spoke with patient and her significant other. He wanted to take [facility] off the list and add [facility]. He said [facility] or [facility] are now their choices. SW told him [facility] said they can take her when she is ready. They were both in agreement with this plan. LIS completed a referral to [facility] for Passport services per patient and her significant other's request. Plan: d/c to [facility] under skilled level of care on a convalescent stay. Britni STROUD
[2021-05-03 17:21] LABS: Bedside Glucose 192 mg/dL (70-110)
[2021-05-03] MEDS: Atorvastatin Calcium 10 MG Tablet PO (20:24)
[2021-05-03 20:36] LABS: Bedside Glucose 195 mg/dL (70-110)
--- NOTE | 2021-05-03 22:19 | CPS ---
May 01, 20:[address] Caceres with critical abg results on this pt.
[2021-05-04] VITALS (15 sets, daily range): BP systolic 107–136; BP diastolic 65–73; PULSE 69–95; RESP 14–22; TEMP 36.6–37.2; O2SAT 93–97
[2021-05-04] MEDS: 0.9% Saline Lock 10 ML Syringe IV (06:09)
[2021-05-04] MEDS: Ondansetron 4 MG/2 ML Vial IV (06:09)
[2021-05-04] MEDS: Ipratropium/Albuterol Sulfate 3 ML AMPUL.NEB INHALATION ×3 (06:37→18:44)
[2021-05-04 06:50] LABS: Bedside Glucose 120 mg/dL (70-110)
[2021-05-04 07:50] LABS: Absolute Lymphocyte Count 1.75 X10^3/uL (0.83-4.51); Absolute Neutrophil Count 4.1 X10^3/uL (2.0-7.7); Basophil# 0.04 X10^3/uL; Basophil% 0.6 % (0-1); Eosinophil# 0.15 X10^3/uL; Eosinophils% 2.2 % (0-5); Hematocrit 31.9 % (37-47); Hemoglobin 9.5 g/dL (12.0-15.0); Lymphocyte # 1.75 X10^3/ul (0.83-4.51); Lymphocyte % 26.1 % (19-41); Mean Corp Hgb Conc 29.8 g/dL (32-36); Mean Corpuscular Volume 100.6 fL (81-99); Mean Platelet Vol. 10.9 fl (6.2-12.0); Monocyte# 0.68 X10^3/uL; Monocyte% 10.1 % (0-10); NRBC Flagged by Analyzer 0 % (0-5); Neutrophil # 4.06 X10^3/uL (2.7-7.7); Neutrophil % 60.7 % (47-70); Platelet Count 156 K/mm3 (150-450); RBC Distribution Width CV 14.6 % (11.6-14.6); RBC Distribution Width SD 53.7 fl (35.1-43.9); Red Blood Count 3.17 M/mm3 (4.2-5.4); White Blood Count 6.7 K/mm3 (4.4-11.0)
[2021-05-04 07:59] LABS: International Normalized Ratio 2.5; Prothrombin Time (Protime)PT. 26.2 SECONDS (11.7-14.9)
[2021-05-04 08:02] LABS: Albumin, Serum 2.4 g/dL (3.2-5.0); BUN 72 mg/dL (7-18); BUN/Creat Ratio 21.1 RATIO (10-20); Calcium,Total 7.8 mg/dL (8.5-10.1); Chloride 103 mmol/L (98-107); Creatinine, Serum 3.41 mg/dL (0.55-1.02); EST Glomerular Filtration Rate 14 mL/min (>60); Est Glom Filt Rate - Afr Amer 17 mL/min (>60); Estimated Creatinine Clearance 15.35 ml/min; Glucose 114 mg/dL (74-106); Phosphorus 4.8 mg/dL (2.5-4.9); Potassium 4.1 mmol/L (3.5-5.1); Sodium Level 137 mmol/L (136-145)
[2021-05-04] MEDS: Loratadine 10 MG Tablet PO (08:37)
[2021-05-04] MEDS: Sertraline 50 MG Tablet PO (08:37)
[2021-05-04] MEDS: LINAGLIPTIN 5 MG TABLET PO (08:37)
[2021-05-04] MEDS: Gabapentin 100 MG Capsule 200 MG PO ×3 (08:37→16:48)
[2021-05-04] MEDS: Metoprolol Tartrate 25 MG Tablet PO ×2 (08:37→22:02)
[2021-05-04] MEDS: amLODIPine 5 MG Tablet PO (08:37)
[2021-05-04] MEDS: Nystatin Powder 15gm Bottle 1 APPLIC TOPICAL ×2 (08:40→22:02)
[2021-05-04] MEDS: 0.9% Normal Saline 1,000 ML 100 ML IV ×2 (08:41→18:59)
--- NOTE | 2021-05-04 09:43 | PCM.PN.REN ---
Subjective Subjective denies worsening sob, nausea, vomiting. Creatinine improving with iv fluids. URINE OUTPUT IMPROVED Objective Data Objective Data Vital Signs: Vital Signs Temp Pulse Resp BP Pulse Ox 98.3 F 79 18 113/65 94 05/04/21 08:32 05/04/21 08:37 05/04/21 08:32 05/04/21 08:37 05/04/21 08:32 Oxygen Flow Rate (L/min) 6 Oxygen Delivery Method Nasal Cannula Weight: 167.4 kg Body Mass Index (BMI) 55.4 Intake & Output: Intake and Output for Last 24 Hours 05/02/21 05/03/21 05/04/21 23:59 23:59 23:59 Intake Total 440 / 440 1530 / 1730 1400 / 1400 Output Total 450 / 450 900 / 1250 725 / 725 Balance -10 / -10 630 / 480 675 / 675 Lab / Micro Data Result Diagrams: 05/04/21 06:50 05/04/21 06:50 Labs: Laboratory Results - last 24 hr 05/03/21 11:04: POC Glucose 158 H 05/03/21 16:51: POC Glucose 192 H 05/03/21 20:22: POC Glucose 195 H 05/04/21 06:44: POC Glucose 120 H 05/04/21 06:50: Sodium 137, Potassium 4.1, Chloride 103, Carbon Dioxide 29.0, BUN 72 H, Creatinine 3.41 H, Estim Creat Clear Calc 15.35, Est GFR (MDRD) Af Amer 17 L, Est GFR (MDRD) Non-Af 14 L, BUN/Creatinine Ratio 21.1 H, Glucose 114 H, Calcium 7.8 L, Phosphorus 4.8, Albumin 2.4 L 05/04/21 06:50: WBC 6.7, RBC 3.17 L, Hgb 9.5 L, Hct 31.9 L, MCV 100.6 H, MCH 30.0, MCHC 29.8 L, RDW Std Deviation 53.7 H, RDW Coeff of Angelika 14.6, Plt Count 156, MPV 10.9, Immature Gran % (Auto) 0.300, Neut % (Auto) 60.7, Lymph % (Auto) 26.1, [place] % (Auto) 10.1 H, Eos % (Auto) 2.2, Baso % (Auto) 0.6, Absolute Neuts (auto) 4.1, Absolute Lymphs (auto) 1.75, Nucleated RBC % 0 05/04/21 06:50: PT 26.2 H, INR 2.5 Micro: Microbiology 05/01/21 17:30 Nasal Secretion SARS-CoV-2 Antigen (Rapid) - Final ABG Data ABG results: ABG 05/03/21 10:26 Specimen Type ART Sample Site R Radial pH 7.30 L Bicarbonate Actual 29.9 H Total CO2 32 Base Excess 3 H O2 Saturation 93 L ABG pCO2 61.5 H ABG pO2 74 L Saroj Test Positive O2 Delivery Device Cannula Liter Flow 6.0 Physical Exam Const alert and oriented x3 Constitutional Narrative: on high flow oxygen Resp Auscultation: diminished lung sounds Cardio regular rate GI GI Narrative: obese Palpation: soft Extremity no clubbing, cyanosis or edema Neuro Sensorium / Orientation: awake and alert Psych cooperative Assessment & Plan Assessment/Plan (1) Acute renal failure superimposed on stage 4 chronic kidney disease: QUALIFIERS: Acute renal failure type: unspecified Qualified Code(s): N17.9 - Acute kidney failure, unspecified; N18.4 - Chronic kidney disease, stage 4 (severe) PLAN: creatinine improved with iv fluids (2) CKD stage 4 due to type 2 diabetes mellitus: PLAN: eGFR 26cc/min (3) Acute respiratory failure with hypoxia and hypercarbia: PLAN: bipap (4) Cor pulmonale: (5) On home oxygen therapy: (6) Hypertension: (7) DM type 2 (diabetes mellitus, type 2): QUALIFIERS: Diabetes mellitus complication detail: with nephropathy (8) Debility: PLAN: dc to ECF
[2021-05-04] MEDS: Insulin Lispro 100 UNIT/ML INSULN.PEN SC ×3 (11:51→22:07)
--- NOTE | 2021-05-04 11:53 | PN.HOSP_ITS ---
Documented by User: Penny Robert NP, SPONGE DIVER-C 05/04/21 11:59 Subjective Subjective Patient seen and examined. States shortness of breath is at baseline. States she did not tolerate BiPAP overnight. On baseline home O2 requirements. Kidney function improving, likely discharge tomorrow if continued improvement. Objective Data Objective Data Vital Signs: Vital Signs Temp Pulse Resp BP Pulse Ox 98.3 F 79 18 113/65 94 05/04/21 08:32 05/04/21 08:37 05/04/21 08:32 05/04/21 08:37 05/04/21 08:32 Oxygen Flow Rate (L/min) 6 Oxygen Delivery Method Nasal Cannula Weight: 369 lb 0.861 oz Body Mass Index (BMI) 55.4 Intake & Output: Intake and Output for Last 24 Hours 05/02/21 05/03/21 05/04/21 23:59 23:59 23:59 Intake Total 440 / 440 1530 / 1730 1400 / 1400 Output Total 450 / 450 900 / 1250 725 / 725 Balance -10 / -10 630 / 480 675 / 675 Lab / Micro Data Result Diagrams: 05/04/21 06:50 05/04/21 06:50 Labs: Laboratory Results - last 24 hr 05/03/21 16:51: POC Glucose 192 H 05/03/21 20:22: POC Glucose 195 H 05/04/21 06:44: POC Glucose 120 H 05/04/21 06:50: Sodium 137, Potassium 4.1, Chloride 103, Carbon Dioxide 29.0, BUN 72 H, Creatinine 3.41 H, Estim Creat Clear Calc 15.35, Est GFR (MDRD) Af Amer 17 L, Est GFR (MDRD) Non-Af 14 L, BUN/Creatinine Ratio 21.1 H, Glucose 114 H, Calcium 7.8 L, Phosphorus 4.8, Albumin 2.4 L 05/04/21 06:50: WBC 6.7, RBC 3.17 L, Hgb 9.5 L, Hct 31.9 L, MCV 100.6 H, MCH 30.0, MCHC 29.8 L, RDW Std Deviation 53.7 H, RDW Coeff of Angelika 14.6, Plt Count 156, MPV 10.9, Immature Gran % (Auto) 0.300, Neut % (Auto) 60.7, Lymph % (Auto) 26.1, [place] % (Auto) 10.1 H, Eos % (Auto) 2.2, Baso % (Auto) 0.6, Absolute Neuts (auto) 4.1, Absolute Lymphs (auto) 1.75, Nucleated RBC % 0 05/04/21 06:50: PT 26.2 H, INR 2.5 Micro: Microbiology 05/01/21 17:30 Nasal Secretion SARS-CoV-2 Antigen (Rapid) - Final Physical Exam Const alert, oriented x3 and no apparent distress Orientation / Consciousness: awake, oriented to person, oriented to place and oriented to time Nutritional Appearance: obese HEENT normocephalic and moist oral mucous membranes Eyes PERRL, EOMs intact bilaterally and conjunctivae normal Neck no lymphadenopathy Resp clear to auscultation bilaterally Auscultation: diminished lung sounds Cardio regular rate, regular rhythm and no murmurs Peripheral Pulses: pulses 2+ throughout GI normal to inspection, nondistended, normoactive bowel sounds, non-tender and non-distended Extremity normal to inspection General Extremity: edema bilateral lower extremity Details: mild (Clark wraps in place) Skin no rashes or lesions noted Lesions: no lesions Rashes: no rashes Trauma: no lacerations or abrasions Neuro CN's II-XII intact bilaterally, no focal motor deficits, no sensory deficits noted and deep tendon reflexes 2+ bilaterally Psych mental status grossly normal and affect normal Assessment & Plan Assessment/Plan (1) Acute respiratory failure with hypoxia and hypercarbia: (2) Acute renal failure superimposed on stage 4 chronic kidney disease: QUALIFIERS: Acute renal failure type: unspecified Qualified Code(s): N17.9 - Acute kidney failure, unspecified; N18.4 - Chronic kidney disease, stage 4 (severe) PLAN: 1. Acute kidney injury on chronic kidney disease stage IV, ESPERANZA likely cardiorenal- Losartan on hold. Patient follows with Dr. Lind, nephrology. Nephrology consulted. Trend BMP. Anticipate discharge tomorrow if continued improvement in renal function. IV Lasix discontinued, patient given gentle IV fluids and plan to transition to oral Lasix regimen. 2. Acute on chronic heart failure with preserved ejection fraction- Strict I&O. Daily weight. Echocardiogram 03/31/2021 demonstrated an EF of 55 to 60%. Echocardiogram at that time noted moderate size LA thrombus. Further IV Lasix discontinued due to increasing creatinine. Transition to oral regimen, Lasix 40 mg twice daily. 3. Chronic hypoxic respiratory failure secondary to chronic COPD and chronic heart failure with preserved ejection fraction-on 6 L nasal cannula at baseline. Repeat home O2 testing prior to discharge. Currently on baseline requirements. 4. Type 2 diabetes [id number] with sliding scale insulin. 5. Hypertension-stable, continue amlodipine. 6. Hyperlipidemia-continue statin. 7. Chronic atrial fibrillation-on Coumadin. Not previous on rate control regimen. Initiated on metoprolol given intermittent tachycardia. 8. Chronic COPD-as needed albuterol aerosol. 9. Morbid obesity-encouraged diet and lifestyle modifications. 10. DIEGO-diagnosed previously however not on Pap therapy. Recommend outpatient follow-up. DVT prophylaxis-coumadin This patient was seen by ADRIANA Weiner under the supervision of Dr. Wheeler. Documented by User: Dr. Chung Wheeler MD 05/04/21 17:21 Subjective Subjective Seen and examined. Patient shortness of breath is much better. Heart rate and blood pressure is good Objective Data Lab / Micro Data Result Diagrams: 05/04/21 06:50 05/04/21 06:50 Physical Exam Narrative General: Awake. Oriented x3. HEENT: Atraumatic, PERRLA, EOMI, Normocephalic Oral: No Gingival or Mucosal Lesions/ Ulcerations Neck: Supple, No JVD, Negative Carotid Bruits Lungs: Air entry diminished in bilateral lung bases. Lungs clear. On oxygen through nasal cannula Cardiovascular: Irregular, sinus rhythm, PVCs. Normal S1, Normal S2, LLSB systolic murmur. Abdomen: Bowel Sounds Present, Soft, Non Tender, Non-Distended : No renal angle tenderness. No suprapubic tenderness. Extremities: Fatty/nonpitting edema over knees and thigh. Skin: No ulcer. Musculoskeletal: No Tenderness to Palpation of Joints or Extremities Neurological: Cranial nerves II-XII grossly intact, DTR 2+/4 and Symmetrical, Neuro grossly intact Psych/Mental Status: Not affect Assessment & Plan Assessment/Plan (1) Acute respiratory failure with hypoxia and hypercarbia: PLAN: This patient was seen in conjunction with Penny WALDRON. I have independently interviewed and examined the patient and reviewed pertinent history, examination findings, laboratory and plan of management. I have reviewed the note and agree with the documented findings with the few additional points. In brief, patient is admitted for acute on chronic HFpEF/diastolic heart failure: Patient last echo in March 2021 shows EF 55 to 60%, moderately dilated RV with systolic dysfunction, dilated IVC and hepatic veins. LA enlarged with mural thrombus. INR 2.5. Coumadin was held yesterday and resumed at 1.5 mg daily. heart failure core measures including intake and output, fluid restriction less than 1500 mL, daily weight monitoring, kidney and electrolytes monitoring. Lasix on hold. On metoprolol. Acute on chronic hypoxic respiratory failure. Oxygen demand increased to NIPPV on BiPAP/AVAPS 50% FiO2. Discussed with respiratory therapist. Acute kidney injury on CKD stage IV, cardiorenal disease. Estimated creatinine clearance about 14 mL/min Dr. Lind is consulted.Patient was given IV fluid yesterday. Creatinine is better Paroxysmal A. fib. Anticipate discharge tomorrow Other comorbidities as mentioned above I have discussed my assessment with Penny WALDRON and orders have been reviewed.
[2021-05-04 11:56] LABS: Bedside Glucose 159 mg/dL (70-110)
--- NOTE | 2021-05-04 16:11 | CON.PCM.PA_ITS ---
Assessment & Plan Assessment/Plan (1) Shortness of breath: (2) Debility: (3) Acute respiratory failure with hypoxia and hypercarbia: (4) CKD stage 4 due to type 2 diabetes mellitus: (5) On home oxygen therapy: (6) DIEGO (obstructive sleep apnea): (7) Cor pulmonale: (8) Venous insufficiency (chronic) (peripheral): (9) Paroxysmal A-fib: (10) Asthma: QUALIFIERS: Asthma severity: unspecified severity Asthma persistence: unspecified Asthma complication type: unspecified Qualified Code(s): J45.909 - Unspecified asthma, uncomplicated (11) Morbid obesity: (12) Depression: QUALIFIERS: Depression Type: unspecified Qualified Code(s): F32.9 - Major depressive disorder, single episode, unspecified (13) Vitamin D deficiency: (14) Diabetic neuropathy associated with type 2 diabetes mellitus: QUALIFIERS: Diabetes mellitus complication detail: diabetic polyneuropathy Qualified Code(s): E11.42 - Type 2 diabetes mellitus with diabetic polyneuropathy (15) Hypertension: QUALIFIERS: Hypertension type: renovascular hypertension Qualified Code(s): I15.0 - Renovascular hypertension (16) Hyperlipidemia: QUALIFIERS: Hyperlipidemia type: unspecified Qualified Code(s): E78.5 - Hyperlipidemia, unspecified (17) DM type 2 (diabetes mellitus, type 2): QUALIFIERS: Diabetes mellitus complication detail: with nephropathy Diabetes mellitus retirement insulin use: with retirement use Diabetes mellitus complication status: with kidney complications Qualified Code(s): E11.21 - Type 2 diabetes mellitus with diabetic nephropathy; 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 1. Shortness of breath: Small improvement from admission several days ago. History of cor pulmonale, on home oxygen, significant CKD and arrhythmia. She is morbidly obese, which is likely contributing to the severity of her dyspnea. Being diuresed. Fluid balance will likely be difficult in the long run, did start some dietary education with the patient. Palliative will see her for supportive care if she is wanting services. 2. Debility: Multifactorial, barely able to take a few steps. Therapy following, she will go to [facility] for further rehab. Plan is to return home with her significant other. 3. Acute on chronic hypoxemic and hypercarbic respiratory failure/DIEGO/home O2: See above. Follow-up with pulmonary. 4. Morbid obesity: Again, likely significantly contributing to shortness of breath. She was advised to lose weight. Would recommend dietitian. 5. Depression/asthma/PAF/venous insufficiency/type II DM/HLD/HTN/vitamin D deficiency/CKD stage IV: Complicates overall care, management, recovery, and prognosis. Thank you for the opportunity to participate in this patient's care, please do not hesitate to contact [facility] with any further questions or concerns. Palliative direct line is [phone]. We will follow up after discharge and will discuss palliative services further at that time. Goals would be supportive care, management of shortness of breath, reduction in hospitalizations, and improvement in quality of life. Greater than 50% of F2F visit dedicated to education and counseling of palliative care services, medications, comorbid conditions and potential assistance with management, and plan of care moving forward. Start time: 1611 End time: 1704 HPI Consult Data Date of Consult: 05/04/21 HPI Narrative HPI Narrative: ELINA MEZA, is a 70 F who presented to [facility] 04/29/2021 with complaints of progressive worsening of bilateral lower extremity edema over the course of approximately 2 weeks. She has a history of COPD, cor pulmonale, atrial fibrillation, and hypertension.patient was just discharged from [facility] 04/04/2021 after being treated for cor pulmonale and diuresed with Lasix. Chest x-ray upon admission showed the findings suggestive of interstitial edema, overlying airspace disease was not excluded. Possible small pleural effusion. She did have an echocardiogram during her last admission which revealed estimated EF of 55 to 60%, dilated RV, dilated IVC and hepatic veins, and moderate size LA thrombus. CT of the chest at that time also showed bilateral pneumonia and features of COVID-19 pneumonia present. Her Covid rapid was negative. Patient complains of chronic orthopnea and lower extremity edema, which has improved a little since being hospitalized. She was previously on Pap therapy but has to have a further testing prior to being placed on APAP. Reports feeling very weak. States she cannot walk, she was able to take maybe 4 steps yesterday with therapy. Has shortness of breath with minimal exertion. No chest pain. Currently saturating 94% on 6 L of oxygen. She took oxygen off 05/02 and her pulse ox dipped to 75%. She remains in A. fib, controlled rate. She feels she needs extended rehab to regain some strength. Patient was unable to get up and do anything at home, had some falls as well. The plan is for her to discharge to [facility] for fpc/therapy. Social work also completed a referral to [facility] for passport services. Patient follows with Dr. Lind from nephrology and Dr. Campos for pulmonology. She does have DME in the home including shower chair, cane, grab bars, and home O2 through [employer] with portability. She uses [facility] in [place] for prescriptions. Normally, patient independent with bathing, dressing, toileting, bills, and medications. It is only been in the last couple of months that she has declined. She does not drive but has a significant other who takes her to her appointments. [facility] Medical History Acute respiratory failure with hypoxia Allergic rhinitis Arthritis Asthma Atrial fibrillation Cellulitis of right lower extremity Chronic kidney disease (CKD) stage G1/A2, glomerular filtration rate (GFR) equal to or greater than 90 mL/min/1.73 square meter and albuminuria creatinine ratio between 30-299 mg/g CKD (chronic kidney disease), stage IV COPD (chronic obstructive pulmonary disease) Cor pulmonale Depression Diabetes Diabetic neuropathy associated with type 2 diabetes mellitus Hay fever Hyperlipidemia Hypertension Hypertension Knee pain Morbid obesity On home oxygen therapy DIEGO (obstructive sleep apnea) Paroxysmal A-fib Right leg pain Right-sided congestive heart failure Secondary pulmonary arterial hypertension Sleep apnea Venous insufficiency (chronic) (peripheral) Vitamin D deficiency Home Medications gabapentin 600 mg PO TIDCM 11/08/14 [History Last Taken 04/29/21] sertraline 50 mg PO DAILY 11/08/14 [History Last Taken 04/29/21] simvastatin 20 mg PO QHS 11/08/14 [History Last Taken 04/28/21] ergocalciferol (vitamin D2) 1,250 mcg (50,000 unit) capsule 50,000 unit PO QMONTH 30 Days #1 01/13/18 [History Last Taken 06/26/20] amlodipine 5 mg PO DAILY 03/31/18 [History Last Taken 04/29/21] acetaminophen 1,000 mg PO Q8H PRN PRN tab 04/14/18 [Rx Last Taken 07/08/20] insulin glargine 100 unit/mL (3 mL) subcutaneous pen 74 unit SC HS ml 05/22/18 [History Last Taken 07/07/20] warfarin 2.5 mg tablet 2.5 mg PO DAILY 05/22/18 [History Last Taken 04/29/21] albuterol sulfate 2 inh INHALATION 4X/DAY PRN PRN 03/18/21 [History Last Taken Unknown] linagliptin 5 mg PO DAILY 03/30/21 [History Last Taken 04/29/21] losartan 100 mg PO DAILY 03/30/21 [History Last Taken Unknown] loratadine 10 mg capsule 10 mg PO DAILY 04/26/21 [History Last Taken 04/29/21] furosemide [Lasix] 40 mg PO DAILY 04/29/21 [History Last Taken 04/29/21] Allergy/AdvReac Type Severity Reaction Status Date / Time aspirin Allergy Unknown Itching Verified 04/30/21 00:19 ibuprofen Allergy Itching Verified 04/30/21 00:19 sulfamethoxazole Allergy cant Verified 04/30/21 00:19 [From ] remember trimethoprim [From ] Allergy cant Verified 04/30/21 00:19 remember Family History Mother CAD (coronary artery disease) Hypertension Father CAD (coronary artery disease) Hypertension Other Diabetes Heart disease Surgical History History of knee replacement procedure of right knee Hx of section Social History household members: spouse, family and children housing: house current occupational status: unemployed and retired Smoking Status: Never smoker ROS ROS Narrative Review of systems otherwise negative from a constitutional, HEENT, respiratory, cardiovascular, GI, genitourinary, musculoskeletal, skin, neurologic, psychiatr ic and hematologic system unless stated above. Physical Exam Const alert, oriented x3 and no apparent distress Constitutional Narrative: Mild conversational dyspnea Nutritional Appearance: morbidly obese HEENT normocephalic and head/scalp atraumatic Neck supple Neck Narrative: Large neck circumference, redundant submandibular tissue General: trachea midline Resp Effort and Inspection: tachypneic; Negative for pursed lip breathing or actively coughing Auscultation: diminished lung sounds diffuse; Negative for rales, rhonchi or wheezes Cardio regular rate, S1 normal heart sound and S2 normal heart sound Rhythm: abnormal rhythm irregularly irregular GI soft to palpation, non-tender and non-distended GI Narrative: Obesity distention Narrative: Wayne catheter draining clear yellow urine Skin no rashes or lesions noted General Skin Exam: venous stasis Neuro CN's II-XII intact bilaterally, moves all extremities and no focal motor deficits Psych mental status grossly normal Activity / Motor Behavior: appropriate eye contact Speech: normal speech
[2021-05-04] MEDS: Furosemide 40 MG Tablet PO (16:48)
[2021-05-04 16:55] LABS: Bedside Glucose 170 mg/dL (70-110)
[2021-05-04] MEDS: Atorvastatin Calcium 10 MG Tablet PO (22:02)
[2021-05-04 23:30] LABS: Bedside Glucose 189 mg/dL (70-110)
[2021-05-05] VITALS (11 sets, daily range): BP systolic 107–141; BP diastolic 59–79; PULSE 67–79; RESP 18–22; TEMP 36.4–37; O2SAT 93–98
[2021-05-05] MEDS: 0.9% Saline Lock 10 ML Syringe IV (02:31)
[2021-05-05] MEDS: Ondansetron 4 MG/2 ML Vial IV (02:31)
--- NOTE | 2021-05-05 04:35 | NURSING ---
Called report to Rebecca MARY RN.
[2021-05-05 06:43] LABS: Basophil# 0.03 X10^3/uL; Basophil% 0.5 % (0-1); Eosinophil# 0.15 X10^3/uL; Eosinophils% 2.3 % (0-5); Hematocrit 33.1 % (37-47); Hemoglobin 9.8 g/dL (12.0-15.0); Lymphocyte % 23.4 % (19-41); Mean Corp Hgb Conc 29.6 g/dL (32-36); Mean Corpuscular Volume 101.2 fL (81-99); Monocyte# 0.67 X10^3/uL; Monocyte% 10.5 % (0-10); NRBC Flagged by Analyzer 0 % (0-5); Neutrophil # 4.03 X10^3/uL (2.7-7.7); Platelet Count 163 K/mm3 (150-450); RBC Distribution Width CV 14.6 % (11.6-14.6); RBC Distribution Width SD 53.9 fl (35.1-43.9); Red Blood Count 3.27 M/mm3 (4.2-5.4); White Blood Count 6.4 K/mm3 (4.4-11.0)
[2021-05-05 06:51] LABS: Bedside Glucose 131 mg/dL (70-110)
[2021-05-05 06:56] LABS: Prothrombin Time (Protime)PT. 21.8 SECONDS (11.7-14.9)
[2021-05-05] MEDS: Ipratropium/Albuterol Sulfate 3 ML AMPUL.NEB INHALATION (07:07)
[2021-05-05 07:11] LABS: Anion Gap 4 (5-15); BUN 73 mg/dL (7-18); BUN/Creat Ratio 21.9 RATIO (10-20); Chloride 102 mmol/L (98-107); Creatinine, Serum 3.34 mg/dL (0.55-1.02); EST Glomerular Filtration Rate 15 mL/min (>60); Est Glom Filt Rate - Afr Amer 18 mL/min (>60); Estimated Creatinine Clearance 15.68 ml/min; Glucose 127 mg/dL (74-106); Potassium 4.1 mmol/L (3.5-5.1); Sodium Level 136 mmol/L (136-145)
[2021-05-05] MEDS: Gabapentin 100 MG Capsule 200 MG PO ×2 (07:38→12:24)
[2021-05-05] MEDS: Acetaminophen 500 MG Tablet 1000 MG PO (07:38)
--- NOTE | 2021-05-05 09:46 | TREXTCAR_ITS ---
Documented by User: Penny Robert NP, ELEMENTARY ELL TEACHER-C 05/05/21 09:59 Diet 04/30/21 00:12 Diet: Cardiac: Calorie-Controlled Food consistency:: Regular Liquid Consistency:: Regular/Thin Dietary Modifications:: Sodium Restricted Fluid restriction:: 1750 mL How many daily calories?: 1800 calorie Routine Orders/Code Status Enema Type: Fleetz Enema Frequency: Daily PRN Suppository Type: Dulcolax 10mg Suppository Frequency: Daily PRN O2 Liters per Minute: 6 O2 Frequency: Continuous Keep PO Greater than or Equal to (%): 90 Routine Lab Work: - (Weekly CBC, BMP, INR) Code Status: Full Code Suggestions for Active Care Change Position every (hours): 2 Times a day to sit in chair: 3 Therapies Physical Therapy: Eval and Treat Occupational Therapy: Eval and Treat Problem/Diagnosis (1) Shortness of breath: Status: Acute (2) Debility: Status: Acute (3) Acute respiratory failure with hypoxia and hypercarbia: Status: Acute (4) CKD stage 4 due to type 2 diabetes mellitus: Status: Chronic (5) On home oxygen therapy: Status: Acute (6) DIEGO (obstructive sleep apnea): Status: Suspected (7) Cor pulmonale: Status: Acute (8) Venous insufficiency (chronic) (peripheral): Status: Chronic (9) Paroxysmal A-fib: Status: Chronic (10) Asthma: Status: Chronic (11) Morbid obesity: Status: Chronic (12) Depression: Status: Chronic (13) Vitamin D deficiency: Status: Chronic (14) Diabetic neuropathy associated with type 2 diabetes mellitus: Status: Chronic (15) Hypertension: Status: Chronic (16) Hyperlipidemia: Status: Chronic (17) DM type 2 (diabetes mellitus, type 2): Status: Acute Allergies/Procedures Done in Hospital Allergies aspirin Allergy (Unknown, Verified 04/30/21 00:19) Itching ibuprofen Allergy (Verified 04/30/21 00:19) Itching sulfamethoxazole [From Septra] Allergy (Verified 04/30/21 00:19) cant remember trimethoprim [From Septra] Allergy (Verified 04/30/21 00:19) cant remember Procedures: None Type of Care/Length of Stay Estimated LOS: Convalescent Care Less Than 30 days Type of Care Needed: Skilled Rehab Potential: Fair Prognosis: Fair Additional Orders/Day of Discharge Additional Orders: Palliative Care H&P will serve as current which was dated: 04/29/21 Day of Discharge: 05/05/21 Dietary and Speech Recommendations Dietitian Recommendations/Changes: Will change diet to 1800 katey Cardiac/ Sodium Restricted diet w/ 1750 ml FR/day Discharge Plan Admission Admit Date/Time: 04/29/21 23:47 Primary Reason for Your Visit: Acute kidney injury, heart failure Attending Provider: Chung Wheeler Primary Care Provider: Marshall Baltazar ELEMENTARY ELL TEACHER Consulting Providers: Sara Lind Instructions Additional Instructions / Restrictions: Needs follow up with pulmonary medicine for DIEGO, CPAP/BIPAP eval. Discharge Orders/Prescriptions Prescriptions: New furosemide 40 mg Tablet 40 mg PO BIDLX Qty: 0 RF: 0 ipratropium-albuterol 0.5 mg-3 mg(2.5 mg base)/3 mL Solution For Nebulization 3 ml inhalation Q6H.RT Qty: 0 RF: 0 insulin lispro [Humalog KwikPen Insulin] 100 unit/mL Insulin Pen See Protocol unit subcut ACHS Qty: 0 RF: 0 metoprolol tartrate 25 mg Tablet 25 mg PO BID Qty: 0 RF: 0 Lantus Solostar U-100 Insulin 100 unit/mL (3 mL) Insulin Pen 30 units subcut BID Qty: 0 RF: 0 Continued ergocalciferol (vitamin D2) 50,000 unit capsule 50,000 unit PO QMONTH 30 Days Qty: 1 RF: 0 warfarin 2.5 mg tablet 2.5 mg PO DAILY RF: 0 loratadine 10 mg capsule 10 mg PO DAILY RF: 0 gabapentin 600 MG tablet 600 mg PO TIDCM RF: 0 simvastatin 20 MG tablet 20 mg PO QHS RF: 0 sertraline 50 MG tablet 50 mg PO DAILY RF: 0 amlodipine 5 MG tablet 5 mg PO DAILY RF: 0 acetaminophen 500 MG tablet 1,000 mg PO Q8H PRN PRN (Reason: Mild Pain (-11/02)) RF: 0 albuterol sulfate 1 PUFF HFA aerosol inhaler 2 inh inhalation 4X/DAY PRN PRN (Reason: SOB) RF: 0 linagliptin 5 mg tablet 5 mg PO DAILY RF: 0 Discontinued Lantus Solostar U-100 Insulin 100 unit/mL (3 mL) insulin pen 74 unit SC HS RF: 0 losartan 100 MG tablet 100 mg PO DAILY RF: 0 Hold Instructions: Resume on 04/18/21. Hold until follow up with Primary care physician furosemide [Lasix] 40 mg tablet 40 mg PO DAILY RF: 0 Referrals / Follow Up: Carlos Campos MD [STAFF PHYSICIAN] - See Referral Note (Marion Guzmán NP/ Dr. Campos as scheduled) Sara Lind DO [STAFF PHYSICIAN] - In 1 Week Marshall Baltazar NP, ELEMENTARY ELL TEACHER-C [Primary Care Provider] - In 1 Week Disposition Disposition (needs filled in before D/C Order can be placed): Shelter Facility Documented by User: Dr. Chung Wheeler MD 05/05/21 13:06 Allergies/Procedures Done in Hospital Allergies aspirin Allergy (Unknown, Verified 04/30/21 00:19) Itching ibuprofen Allergy (Verified 04/30/21 00:19) Itching sulfamethoxazole [From Septra] Allergy (Verified 04/30/21 00:19) cant remember trimethoprim [From Septra] Allergy (Verified 04/30/21 00:19) cant remember Discharge Plan Admission Admit Date/Time: 04/29/21 23:47 Primary Reason for Your Visit: Acute kidney injury, heart failure Attending Provider: Chung Wheeler Primary Care Provider: Marshall Baltazar ELEMENTARY ELL TEACHER Consulting Providers: Sara Lind Instructions Additional Instructions / Restrictions: Needs follow up with pulmonary medicine for DIEGO, CPAP/BIPAP eval. Discharge Orders/Prescriptions Prescriptions: New furosemide 40 mg Tablet 40 mg PO BIDLX Qty: 0 RF: 0 ipratropium-albuterol 0.5 mg-3 mg(2.5 mg base)/3 mL Solution For Nebulization 3 ml inhalation Q6H.RT Qty: 0 RF: 0 insulin lispro [Humalog KwikPen Insulin] 100 unit/mL Insulin Pen See Protocol unit subcut ACHS Qty: 0 RF: 0 metoprolol tartrate 25 mg Tablet 25 mg PO BID Qty: 0 RF: 0 Lantus Solostar U-100 Insulin 100 unit/mL (3 mL) Insulin Pen 30 units subcut BID Qty: 0 RF: 0 Continued ergocalciferol (vitamin D2) 50,000 unit capsule 50,000 unit PO QMONTH 30 Days Qty: 1 RF: 0 warfarin 2.5 mg tablet 2.5 mg PO DAILY RF: 0 loratadine 10 mg capsule 10 mg PO DAILY RF: 0 gabapentin 600 MG tablet 600 mg PO TIDCM RF: 0 simvastatin 20 MG tablet 20 mg PO QHS RF: 0 sertraline 50 MG tablet 50 mg PO DAILY RF: 0 amlodipine 5 MG tablet 5 mg PO DAILY RF: 0 acetaminophen 500 MG tablet 1,000 mg PO Q8H PRN PRN (Reason: Mild Pain (-11/02)) RF: 0 albuterol sulfate 1 PUFF HFA aerosol inhaler 2 inh inhalation 4X/DAY PRN PRN (Reason: SOB) RF: 0 linagliptin 5 mg tablet 5 mg PO DAILY RF: 0 Discontinued Lantus Solostar U-100 Insulin 100 unit/mL (3 mL) insulin pen 74 unit SC HS RF: 0 losartan 100 MG tablet 100 mg PO DAILY RF: 0 Hold Instructions: Resume on 04/18/21. Hold until follow up with Primary care physician furosemide [Lasix] 40 mg tablet 40 mg PO DAILY RF: 0 Referrals / Follow Up: Carlos Campos MD [STAFF PHYSICIAN] - See Referral Note (Marion Guzmán NP/ Dr. Campos as scheduled) Sara Lind DO [STAFF PHYSICIAN] - In 1 Week Marshall Baltazar NP, ELEMENTARY ELL TEACHER-C [Primary Care Provider] - In 1 Week Disposition Disposition (needs filled in before D/C Order can be placed): Shelter Facility
--- NOTE | 2021-05-05 09:59 | PCM.DC.SUM ---
Documented by User: Penny Robert NP, EDI CONSULTANT-C 05/05/21 10:07 Providers Date of Admission: 04/29/21 Date of Discharge: 05/05/21 Primary Care Physician: ADRIANA Carpenter Consultations 05/02/21 09:52 Consult: Nephrology Routine Consulting Provider: Sara Lind Reason for Consult: CKD stage 4, hf, copd, diego EMERGENT Consult: No MD Notified: Yes Date Notified: 05/02/21 Time Notified: 10:07 Method of Notification: Text Reason For Visit: ESPERANZA, DEBILITY Diagnosis Discharge Diagnosis (1) Shortness of breath: Status: Acute Code(s): R06.02 - Shortness of breath (2) Debility: Status: Acute Code(s): R53.81 - Other malaise (3) Acute respiratory failure with hypoxia and hypercarbia: Status: Acute Code(s): J96.01 - Acute respiratory failure with hypoxia; J96.02 - Acute respiratory failure with hypercapnia (4) CKD stage 4 due to type 2 diabetes mellitus: Status: Chronic Code(s): E11.22 - Type 2 diabetes mellitus with diabetic chronic kidney disease; N18.4 - Chronic kidney disease, stage 4 (severe) (5) On home oxygen therapy: Status: Acute Code(s): Z99.81 - Dependence on supplemental oxygen (6) DIEGO (obstructive sleep apnea): Status: Suspected Code(s): G47.33 - Obstructive sleep apnea (adult) (pediatric) (7) Cor pulmonale: Status: Acute Code(s): I27.81 - Cor pulmonale (chronic) (8) Venous insufficiency (chronic) (peripheral): Status: Chronic Code(s): I87.2 - Venous insufficiency (chronic) (peripheral) (9) Paroxysmal A-fib: Status: Chronic Code(s): I48.0 - Paroxysmal atrial fibrillation (10) Asthma: Status: Chronic Code(s): J45.909 - Unspecified asthma, uncomplicated Qualifiers: Asthma complication type: unspecified Asthma persistence: unspecified Asthma severity: unspecified severity Qualified Code(s): J45.909 - Unspecified asthma, uncomplicated (11) Morbid obesity: Status: Chronic Code(s): E66.01 - Morbid (severe) obesity due to excess calories (12) Depression: Status: Chronic Code(s): F32.9 - Major depressive disorder, single episode, unspecified Qualifiers: Depression Type: unspecified Qualified Code(s): F32.9 - Major depressive disorder, single episode, unspecified (13) Vitamin D deficiency: Status: Chronic Code(s): E55.9 - Vitamin D deficiency, unspecified (14) Diabetic neuropathy associated with type 2 diabetes mellitus: Status: Chronic Code(s): E11.40 - Type 2 diabetes mellitus with diabetic neuropathy, unspecified Qualifiers: Diabetes mellitus complication detail: diabetic polyneuropathy Qualified Code(s): E11.42 - Type 2 diabetes mellitus with diabetic polyneuropathy (15) Hypertension: Status: Chronic Code(s): I10 - Essential (primary) hypertension Qualifiers: Hypertension type: renovascular hypertension Qualified Code(s): I15.0 - Renovascular hypertension (16) Hyperlipidemia: Status: Chronic Code(s): E78.5 - Hyperlipidemia, unspecified Qualifiers: Hyperlipidemia type: unspecified Qualified Code(s): E78.5 - Hyperlipidemia, unspecified (17) DM type 2 (diabetes mellitus, type 2): Status: Acute Code(s): E11.9 - Type 2 diabetes mellitus without complications Qualifiers: Diabetes mellitus complication detail: with nephropathy Diabetes mellitus complication status: with kidney complications Diabetes mellitus care home insulin use: with adjunct faculty for medical terminology use Qualified Code(s): E11.21 - Type 2 diabetes mellitus with diabetic nephropathy; Z79.4 - senior living (current) use of insulin Medications at Discharge Home Medications gabapentin 600 mg PO TIDCM 11/08/14 sertraline 50 mg PO DAILY 11/08/14 simvastatin 20 mg PO QHS 11/08/14 ergocalciferol (vitamin D2) 1,250 mcg (50,000 unit) capsule 50,000 unit PO QMONTH 30 Days #1 01/13/18 amlodipine 5 mg PO DAILY 03/31/18 acetaminophen 1,000 mg PO Q8H PRN PRN tab 04/14/18 warfarin 2.5 mg tablet 2.5 mg PO DAILY 05/22/18 albuterol sulfate 2 inh INHALATION 4X/DAY PRN PRN 03/18/21 linagliptin 5 mg PO DAILY 03/30/21 loratadine 10 mg capsule 10 mg PO DAILY 04/26/21 furosemide 40 mg PO BIDLX #0 tab 05/05/21 insulin glargine [Lantus Solostar U-100 Insulin] 30 units SUBCUT BID #0 ml 05/05/21 insulin lispro [Humalog KwikPen Insulin] See Protocol SUBCUT ACHS #0 ml 05/05/21 ipratropium-albuterol 3 ml INHALATION Q6H.RT #0 ml 05/05/21 metoprolol tartrate 25 mg PO BID #0 tab 05/05/21 Hospital Course Operations None Procedures None Summary of Care Provided Minutes Spent on Discharge: 35 Hospital Course: Patient is a 70-year-old female admitted 04/29/2021 due to lower extremity swelling. 1. Acute kidney injury on chronic kidney disease stage IV, ESPERANZA likely cardiorenal- Losartan discontinued at discharge. Patient follows with Dr. Lind, nephrology. Nephrology consulted during admission. Creatinine stable. Follow-up with nephrology in 1 week. Weekly BMP. Lasix 40 mg twice daily at discharge. 2. Acute on chronic heart failure with preserved ejection fraction- Echocardiogram 03/31/2021 demonstrated an EF of 55 to 60%. Echocardiogram at that time noted moderate size LA thrombus. Further IV Lasix discontinued due to increasing creatinine. Transition to oral regimen, Lasix 40 mg twice daily. 3. Chronic hypoxic respiratory failure secondary to chronic COPD and chronic heart failure with preserved ejection fraction-on 6 L nasal cannula at baseline. Repeat home O2 testing prior to discharge. Currently on baseline requirements. 4. Type 2 diabetes [id number] with sliding scale insulin, continue long-acting and oral regimen. 5. Hypertension-stable, continue amlodipine. Losartan discontinued due to acute kidney injury/CKD. Blood pressure stable, if blood pressure increases, consider resuming at lower dose. 6. Hyperlipidemia-continue statin. 7. Chronic atrial fibrillation-on Coumadin. Not previous on rate control regimen. Initiated on metoprolol given intermittent tachycardia. 8. Chronic COPD-as needed albuterol aerosol. 9. Morbid obesity-encouraged diet and lifestyle modifications. 10. DIEGO-diagnosed previously however not on Pap therapy. Recommend outpatient follow-up with pulmonary medicine. Physical Exam Const alert, oriented x3 and no apparent distress Orientation / Consciousness: awake, oriented to person, oriented to place and oriented to time Nutritional Appearance: obese HEENT normocephalic and moist oral mucous membranes Eyes PERRL, EOMs intact bilaterally and conjunctivae normal Neck no lymphadenopathy Resp clear to auscultation bilaterally Auscultation: diminished lung sounds Cardio regular rate, regular rhythm and no murmurs Peripheral Pulses: pulses 2+ throughout GI normal to inspection, nondistended, normoactive bowel sounds, non-tender and non-distended Extremity normal to inspection General Extremity: edema bilateral lower extremity Details: mild (Clark wraps in place) Skin no rashes or lesions noted Lesions: no lesions Rashes: no rashes Trauma: no lacerations or abrasions Neuro CN's II-XII intact bilaterally, no focal motor deficits, no sensory deficits noted and deep tendon reflexes 2+ bilaterally Psych mental status grossly normal and affect normal Patient seen and examined prior to discharge. Physical assessment as noted above. Patient is stable for discharge with follow up recommendations as noted above. This patient was seen by ADRIANA Weiner under the supervision of Dr. Wheeler. Weight / BMI Weight Weight: 365 lb 11.95 oz Body Mass Index (BMI) 55.4 ABG / Lab / Microbiology Data Result Diagrams: 05/05/21 06:04 05/05/21 06:04 Laboratory: Laboratory Results - last 24 hr 05/04/21 11:50: POC Glucose 159 H 05/04/21 16:46: POC Glucose 170 H 05/04/21 22:05: POC Glucose 189 H 05/05/21 06:04: PT 21.8 H, INR 2.0 05/05/21 06:04: WBC 6.4, RBC 3.27 L, Hgb 9.8 L, Hct 33.1 L, MCV 101.2 H, MCH 30.0, MCHC 29.6 L, RDW Std Deviation 53.9 H, RDW Coeff of Angelika 14.6, Plt Count 163, MPV 11.0, Immature Gran % (Auto) 0.300, Neut % (Auto) 63.0, Lymph % (Auto) 23.4, [place] % (Auto) 10.5 H, Eos % (Auto) 2.3, Baso % (Auto) 0.5, Absolute Neuts (auto) 4.0, Absolute Lymphs (auto) 1.50, Nucleated RBC % 0 05/05/21 06:04: Sodium 136, Potassium 4.1, Chloride 102, Carbon Dioxide 30.0, Anion Gap 4 L, BUN 73 H, Creatinine 3.34 H, Estim Creat Clear Calc 15.68, Est GFR (MDRD) Af Amer 18 L, Est GFR (MDRD) Non-Af 15 L, BUN/Creatinine Ratio 21.9 H, Glucose 127 H, Calcium 8.0 L 05/05/21 06:23: POC Glucose 131 H Microbiology: Microbiology 05/01/21 17:30 Nasal Secretion SARS-CoV-2 Antigen (Rapid) - Final Meaningful Use Info Meaningful Use Diagnoses (Choose all that apply): CHF CHF CLARK/ARB ordered at discharge?: Yes Documented LVEF (%): 55 Discharge Plan Admission Admit Date/Time: 04/29/21 23:47 Primary Reason for Your Visit: Acute kidney injury, heart failure Attending Provider: Chung Wheeler Primary Care Provider: Marshall Baltazar EDI CONSULTANT Consulting Providers: Sara Lind Instructions Additional Instructions / Restrictions: Needs follow up with pulmonary medicine for DIEGO, CPAP/BIPAP eval. Discharge Orders/Prescriptions Prescriptions: New furosemide 40 mg Tablet 40 mg PO BIDLX Qty: 0 RF: 0 ipratropium-albuterol 0.5 mg-3 mg(2.5 mg base)/3 mL Solution For Nebulization 3 ml inhalation Q6H.RT Qty: 0 RF: 0 insulin lispro [Humalog KwikPen Insulin] 100 unit/mL Insulin Pen See Protocol unit subcut ACHS Qty: 0 RF: 0 metoprolol tartrate 25 mg Tablet 25 mg PO BID Qty: 0 RF: 0 Lantus Solostar U-100 Insulin 100 unit/mL (3 mL) Insulin Pen 30 units subcut BID Qty: 0 RF: 0 Continued ergocalciferol (vitamin D2) 50,000 unit capsule 50,000 unit PO QMONTH 30 Days Qty: 1 RF: 0 warfarin 2.5 mg tablet 2.5 mg PO DAILY RF: 0 loratadine 10 mg capsule 10 mg PO DAILY RF: 0 gabapentin 600 MG tablet 600 mg PO TIDCM RF: 0 simvastatin 20 MG tablet 20 mg PO QHS RF: 0 sertraline 50 MG tablet 50 mg PO DAILY RF: 0 amlodipine 5 MG tablet 5 mg PO DAILY RF: 0 acetaminophen 500 MG tablet 1,000 mg PO Q8H PRN PRN (Reason: Mild Pain (-11/02)) RF: 0 albuterol sulfate 1 PUFF HFA aerosol inhaler 2 inh inhalation 4X/DAY PRN PRN (Reason: SOB) RF: 0 linagliptin 5 mg tablet 5 mg PO DAILY RF: 0 Discontinued Lantus Solostar U-100 Insulin 100 unit/mL (3 mL) insulin pen 74 unit SC HS RF: 0 losartan 100 MG tablet 100 mg PO DAILY RF: 0 Hold Instructions: Resume on 04/18/21. Hold until follow up with Primary care physician furosemide [Lasix] 40 mg tablet 40 mg PO DAILY RF: 0 Referrals / Follow Up: Carlos Campos MD [STAFF PHYSICIAN] - See Referral Note (Marion Guzmán NP/ Dr. Campos as scheduled) Sara Lind DO [STAFF PHYSICIAN] - In 1 Week Marshall Baltazar NP, EDI CONSULTANT-C [Primary Care Provider] - In 1 Week Disposition Disposition (needs filled in before D/C Order can be placed): [facility] Facility Documented by User: Dr. Chung Wheeler MD 05/05/21 13:09 Providers Date of Admission: 04/29/21 Reason For Visit: ESPERANZA, DEBILITY Medications at Discharge Home Medications gabapentin 600 mg PO TIDCM 11/08/14 sertraline 50 mg PO DAILY 11/08/14 simvastatin 20 mg PO QHS 11/08/14 ergocalciferol (vitamin D2) 1,250 mcg (50,000 unit) capsule 50,000 unit PO QMONTH 30 Days #1 01/13/18 amlodipine 5 mg PO DAILY 03/31/18 acetaminophen 1,000 mg PO Q8H PRN PRN tab 04/14/18 warfarin 2.5 mg tablet 2.5 mg PO DAILY 05/22/18 albuterol sulfate 2 inh INHALATION 4X/DAY PRN PRN 03/18/21 linagliptin 5 mg PO DAILY 03/30/21 loratadine 10 mg capsule 10 mg PO DAILY 04/26/21 furosemide 40 mg PO BIDLX #0 tab 05/05/21 insulin glargine [Lantus Solostar U-100 Insulin] 30 units SUBCUT BID #0 ml 05/05/21 insulin lispro [Humalog KwikPen Insulin] See Protocol SUBCUT ACHS #0 ml 05/05/21 ipratropium-albuterol 3 ml INHALATION Q6H.RT #0 ml 05/05/21 metoprolol tartrate 25 mg PO BID #0 tab 05/05/21 Hospital Course Summary of Care Provided Hospital Course: This patient was seen in conjunction with EDI CONSULTANTPenny. I have independently interviewed and examined the patient and reviewed pertinent history, examination findings, laboratory and plan of management. I have reviewed the note and agree with the documented findings with the few additional points. In brief, patient is admitted for acute on chronic HFpEF/diastolic heart failure: Patient last echo in March 2021 shows EF 55 to 60%, moderately dilated RV with systolic dysfunction, dilated IVC and hepatic veins. LA enlarged with mural thrombus. INR 2.5. Coumadin was held yesterday and resumed at 1.5 mg daily. heart failure core measures including intake and output, fluid restriction less than 1500 mL, daily weight monitoring, kidney and electrolytes monitoring. On metoprolol. Lasix was ordered for transiently of time and then resumed on the day of discharge 40 mg twice daily. Weekly BMP until potassium and magnesium stabilized. Acute on chronic hypoxic respiratory failure. O Patient back on baseline 6/12 oxygen through nasal cannula. Discussed with respiratory therapist/assistant case manager. Acute kidney injury on CKD stage IV, cardiorenal disease. Estimated creatinine clearance about 14 mL/min Dr. Lind is consulted.Patient was given IV fluid yesterday. Creatinine is better Paroxysmal A. fib. Other comorbidities as mentioned above Discharge medication reconciliation done. Discharge follow-up instructions completed. Discharge process discussed with the patient and all questions were answered to patient's satisfaction. Total time spent, exact 35 minutes on discharge meds reconciliation, examination, coordination of care with nurses and ancillary staff, review of imaging and blood test and discussion with the patient on follow-up instructions I have discussed my assessment with Penny WALDRON and orders have been reviewed. Physical Exam Narrative General: Awake. Oriented x3. Patient is comfortable HEENT: Atraumatic, PERRLA, EOMI, Normocephalic Oral: No Gingival or Mucosal Lesions/ Ulcerations Neck: Supple, No JVD, Negative Carotid Bruits Lungs: Air entry diminished in bilateral lung bases. Lungs clear. On oxygen through nasal cannula Cardiovascular: Irregular, sinus rhythm, PVCs. Normal S1, Normal S2, LLSB systolic murmur. Abdomen: Bowel Sounds Present, Soft, Non Tender, Non-Distended : No renal angle tenderness. No suprapubic tenderness. Extremities: Fatty/nonpitting edema over knees. Skin: No ulcer. Musculoskeletal: No Tenderness to Palpation of Joints or Extremities Neurological: Cranial nerves II-XII grossly intact, DTR 2+/4 and Symmetrical, Neuro grossly intact Psych/Mental Status: Appropriate ABG / Lab / Microbiology Data Result Diagrams: 05/05/21 06:04 05/05/21 06:04 Discharge Plan Admission Admit Date/Time: 04/29/21 23:47 Primary Reason for Your Visit: Acute kidney injury, heart failure Attending Provider: Chung Wheeler Primary Care Provider: Marshall Baltazar EDI CONSULTANT Consulting Providers: Sara Lind Instructions Additional Instructions / Restrictions: Needs follow up with pulmonary medicine for DIEGO, CPAP/BIPAP eval. Discharge Orders/Prescriptions Prescriptions: New furosemide 40 mg Tablet 40 mg PO BIDLX Qty: 0 RF: 0 ipratropium-albuterol 0.5 mg-3 mg(2.5 mg base)/3 mL Solution For Nebulization 3 ml inhalation Q6H.RT Qty: 0 RF: 0 insulin lispro [Humalog KwikPen Insulin] 100 unit/mL Insulin Pen See Protocol unit subcut ACHS Qty: 0 RF: 0 metoprolol tartrate 25 mg Tablet 25 mg PO BID Qty: 0 RF: 0 Lantus Solostar U-100 Insulin 100 unit/mL (3 mL) Insulin Pen 30 units subcut BID Qty: 0 RF: 0 Continued ergocalciferol (vitamin D2) 50,000 unit capsule 50,000 unit PO QMONTH 30 Days Qty: 1 RF: 0 warfarin 2.5 mg tablet 2.5 mg PO DAILY RF: 0 loratadine 10 mg capsule 10 mg PO DAILY RF: 0 gabapentin 600 MG tablet 600 mg PO TIDCM RF: 0 simvastatin 20 MG tablet 20 mg PO QHS RF: 0 sertraline 50 MG tablet 50 mg PO DAILY RF: 0 amlodipine 5 MG tablet 5 mg PO DAILY RF: 0 acetaminophen 500 MG tablet 1,000 mg PO Q8H PRN PRN (Reason: Mild Pain (-11/02)) RF: 0 albuterol sulfate 1 PUFF HFA aerosol inhaler 2 inh inhalation 4X/DAY PRN PRN (Reason: SOB) RF: 0 linagliptin 5 mg tablet 5 mg PO DAILY RF: 0 Discontinued Lantus Solostar U-100 Insulin 100 unit/mL (3 mL) insulin pen 74 unit SC HS RF: 0 losartan 100 MG tablet 100 mg PO DAILY RF: 0 Hold Instructions: Resume on 04/18/21. Hold until follow up with Primary care physician furosemide [Lasix] 40 mg tablet 40 mg PO DAILY RF: 0 Referrals / Follow Up: Carlos Campos MD [STAFF PHYSICIAN] - See Referral Note (Marion Guzmán NP/ Dr. Campos as scheduled) Sara Lind DO [STAFF PHYSICIAN] - In 1 Week Marshall Baltazar NP, EDI CONSULTANT-C [Primary Care Provider] - In 1 Week Disposition Disposition (needs filled in before D/C Order can be placed): [facility] Facility Charges/Coding Visit Charges Inpatient E&M: 84788 Disch Hosp
--- NOTE | 2021-05-05 10:42 | PN.RENAL_ITS ---
Subjective Subjective weak, no nausea. Creatinine improving. Transfer to [facility] on discharge for rehab Objective Data Objective Data Vital Signs: Vital Signs Temp Pulse Resp BP Pulse Ox 97.5 F L 74 20 H 141/79 H 95 05/05/21 08:02 05/05/21 08:02 05/05/21 08:52 05/05/21 08:02 05/05/21 08:02 Oxygen Flow Rate (L/min) 6 Oxygen Delivery Method Nasal Cannula Weight: 165.9 kg Body Mass Index (BMI) 55.4 Intake & Output: Intake and Output for Last 24 Hours 05/03/21 05/04/21 05/05/21 23:59 23:59 23:59 Intake Total 1530 / 1730 2965 / 3165 200 / 200 Output Total 900 / 1250 1275 / 1625 575 / 575 Balance 630 / 480 1690 / 1540 -375 / -375 Lab / Micro Data Result Diagrams: 05/05/21 06:04 05/05/21 06:04 Labs: Laboratory Results - last 24 hr 05/04/21 11:50: POC Glucose 159 H 05/04/21 16:46: POC Glucose 170 H 05/04/21 22:05: POC Glucose 189 H 05/05/21 06:04: PT 21.8 H, INR 2.0 05/05/21 06:04: WBC 6.4, RBC 3.27 L, Hgb 9.8 L, Hct 33.1 L, MCV 101.2 H, MCH 30.0, MCHC 29.6 L, RDW Std Deviation 53.9 H, RDW Coeff of Angelika 14.6, Plt Count 163, MPV 11.0, Immature Gran % (Auto) 0.300, Neut % (Auto) 63.0, Lymph % (Auto) 23.4, [place] % (Auto) 10.5 H, Eos % (Auto) 2.3, Baso % (Auto) 0.5, Absolute Neuts (auto) 4.0, Absolute Lymphs (auto) 1.50, Nucleated RBC % 0 05/05/21 06:04: Sodium 136, Potassium 4.1, Chloride 102, Carbon Dioxide 30.0, Anion Gap 4 L, BUN 73 H, Creatinine 3.34 H, Estim Creat Clear Calc 15.68, Est GFR (MDRD) Af Amer 18 L, Est GFR (MDRD) Non-Af 15 L, BUN/Creatinine Ratio 21.9 H , Glucose 127 H, Calcium 8.0 L 05/05/21 06:23: POC Glucose 131 H Micro: Microbiology 05/01/21 17:30 Nasal Secretion SARS-CoV-2 Antigen (Rapid) - Final Physical Exam Const alert and oriented x3 Resp Auscultation: diminished lung sounds Cardio regular rate GI non-tender GI Narrative: obese Palpation: soft Extremity General Extremity: edema bilateral Neuro Sensorium / Orientation: awake Psych cooperative Assessment & Plan Assessment/Plan (1) Acute renal failure superimposed on stage 4 chronic kidney disease: QUALIFIERS: Acute renal failure type: unspecified Qualified Code(s): N17.9 - Acute kidney failure, unspecified; N18.4 - Chronic kidney disease, stage 4 (severe) PLAN: creatinine improved to 3.34 with iv fluids. Continue lasix 40mg bid on discharge (2) CKD stage 4 due to type 2 diabetes mellitus: PLAN: baseline creatinine 2.4 eGFR 26cc/min. Will need dialysis access AVF when medically stable (3) Acute respiratory failure with hypoxia and hypercarbia: PLAN: bipap (4) Cor pulmonale: PLAN: bipap (5) On home oxygen therapy: (6) Hypertension: QUALIFIERS: Hypertension type: renovascular hypertension Qualified Code(s): I15.0 - Renovascular hypertension (7) DM type 2 (diabetes mellitus, type 2): QUALIFIERS: Diabetes mellitus continuous churn buttermaker insulin use: with continuous churn buttermaker use Diabetes mellitus complication status: with kidney complications Diabetes mellitus complication detail: with nephropathy Qualified Code(s): E11.21 - Type 2 diabetes mellitus with diabetic nephropathy; Z79.4 - continuous churn buttermaker (current) use of insulin (8) Debility: PLAN: dc to ECF
[2021-05-05] MEDS: Furosemide 40 MG Tablet PO (11:00)
[2021-05-05] MEDS: Loratadine 10 MG Tablet PO (11:01)
[2021-05-05] MEDS: Metoprolol Tartrate 25 MG Tablet PO (11:01)
[2021-05-05] MEDS: Nystatin Powder 15gm Bottle 1 APPLIC TOPICAL (11:02)
[2021-05-05] MEDS: amLODIPine 5 MG Tablet PO (11:03)
[2021-05-05] MEDS: Sertraline 50 MG Tablet PO (11:03)
[2021-05-05] MEDS: LINAGLIPTIN 5 MG TABLET PO (11:03)
--- NOTE | 2021-05-05 11:12 | CASEMGMT ---
Addendum entered by Monika Gonzalez 05/05/21 12:20: SW Faced COVID test/tool to Ayah at [facility] [place]. LIS spoke with RN, pt can transport via cot. SW accessed trip assist and arranged transportation for 1:00pm via bariatric cot. SW completed transportation form and original in SNF folder and copy on pt's chart. SW updated RN on transportation time. SW updated pt on transportation time. LIS placed a call to Ayah at [facility] [place] and updated her on transportation time. Ayah states understanding. LIS placed a call to pt's S/O Paras and updated him on transportation time. Plan: [facility] today with Physician's transporting pt via bariatric cot at 1:00pm Monika WEST, CAMPUS RECRUITER Original Note: Social Work Note LIS received update that pt's significant other Paras would like to speak with LIS. Paras is not present at [facility] so LIS placed a call to Paras. LIS confirmed with Paras that pt will be discharged to [facility] today. Paras states [facility] was supposed order a special bed/mattress for pt and asked this worker to call [facility] to confirm it was delivered. LIS informed Paras that this worker will check on special bed/mattress and then arrange transportation and will update Paras on transportation time. Paras states understanding. LIS placed a call to Ayah at [facility] [place]. Ayah confirms they ordered a special bed and mattress for pt. Ayah states pt's bed has arrived they are just waiting for mattress but states pt can transport to [facility] whenever. LIS faxed discharge paperwork to Ayah at [facility] including transfer to extended care facility, signed medication list, any scripts, and convalescent 7000. Original in SNF folder and copy on pt's chart. LIS completed convalescent 7000 in [facility]. LIS to fax COVID test/tool once completed. SW to arrange transportation once COVID test/tool once completed. Plan: [facility] today Monika Gonzalez MSW, CAMPUS RECRUITER
[2021-05-05 11:50] LABS: Bedside Glucose 166 mg/dL (70-110)
[2021-05-05] MEDS: Insulin Lispro 100 UNIT/ML INSULN.PEN SC (12:25)
--- NOTE | 2021-05-05 12:35 | NURSING ---
Report called at this time to [facility]
== END 2021-05-05 13:12 | disposition skilled nursing facility (03) | DRG 682 ==
LOC: ED 21:38 → MS3 23:59 → PCU 04-30 01:04 → MS3 05-05 09:51
PROVIDERS: Family Medicine; Internal Medicine; Internal Medicine Nephrology; Nurse Practitioner Family; Physician Assistant; Admitting Provider Hospitalist; Emergency Provider Emergency Medicine; PCP Nurse Practitioner Family; Visit Provider Internal Medicine
DX: N17.9 Acute kidney failure, unspecified (principal); I50.33 Acute on chronic diastolic (congestive) heart failure; J96.21 Acute and chronic respiratory failure with hypoxia; J96.22 Acute and chronic respiratory failure with hypercapnia; I13.0 Hypertensive heart and chronic kidney disease with heart failure and stage 1 through stage 4 chronic kidney disease, or unspecified chronic kidney disease; I48.20 Chronic atrial fibrillation, unspecified; Z68.43 Body mass index [BMI] 50.0-59.9, adult; J96.11 Chronic respiratory failure with hypoxia; I50.82 Biventricular heart failure; E11.22 Type 2 diabetes mellitus with diabetic chronic kidney disease; N18.4 Chronic kidney disease, stage 4 (severe); I27.81 Cor pulmonale (chronic); I51.3 Intracardiac thrombosis, not elsewhere classified; Z20.822 Contact with and (suspected) exposure to COVID-19; J44.9 Chronic obstructive pulmonary disease, unspecified; I48.0 Paroxysmal atrial fibrillation; I27.21 Secondary pulmonary arterial hypertension; E11.65 Type 2 diabetes mellitus with hyperglycemia; E11.40 Type 2 diabetes mellitus with diabetic neuropathy, unspecified; E78.5 Hyperlipidemia, unspecified; R26.2 Difficulty in walking, not elsewhere classified; M19.90 Unspecified osteoarthritis, unspecified site; G47.33 Obstructive sleep apnea (adult) (pediatric); F32.9 Major depressive disorder, single episode, unspecified; E66.01 Morbid (severe) obesity due to excess calories; Z99.81 Dependence on supplemental oxygen; Z79.01 Long term (current) use of anticoagulants; Z79.4 Long term (current) use of insulin; Z79.899 Other long term (current) drug therapy; Z96.651 Presence of right artificial knee joint
CPT/HCPCS: 36415; 36600; 71045; 80048; 80053; 80069; 82803; 82962; 83735; 83880; 85025; 85610; 85730; 87426; 87635; 93005; 94002; 94003; 94640; 97110; 97162; 97165; 97530; 97535; 97802; 99285; J7030; U0005; A4216; J1940; J2405; U0003

== ENCOUNTER 2021-05-11 14:37 | Inpatient (IN) | payer MEDICARE, MEDICAID, SELFPAY ==
[2021-05-11] VITALS (16 sets, daily range): BP systolic 91–149; BP diastolic 69–99; PULSE 95–144; RESP 10–25; TEMP 35.6–37.2; O2SAT 10–98; BMI 57.9; BMI 58.0
--- NOTE | 2021-05-11 14:55 | EKG12_ITS ---
Test Reason : SOB Blood Pressure : / mmHG Vent. Rate : 095 BPM Atrial Rate : 241 BPM P-R Int : 000 ms QRS Dur : 092 ms QT Int : 324 ms P-R-T Axes : 000 085 061 degrees QTc Int : 407 ms Atrial flutter with variable A-V block with premature ventricular or aberrantly conducted complexes Abnormal ECG Confirmed by ROSEANN OSUNA, NOEMÍ ([id number]), purchase request editor JENNIFER TOMLIN ([id number]) on 05/12/2021 1:16:10 PM Referred By: SNOW Confirmed By:NOEMÍ WHITFIELD MD
--- NOTE | 2021-05-11 15:24 | EDS_ITS ---
HPI History of Present Illness Chief Complaint: Shortness of Breath Informant: patient Narrative Narrative: Patient is a 70-year-old female presenting from [facility] for worsening hypoxia. Patient wears 4 to 6 L at baseline. She has had worsening O2 saturation and was brought to the emergency room. Patient was just transferred to CODE STATUS of DNR CC O. Patient states she feels fatigued but does not feel overtly more short of breath. Denies any other complaints at this time. [facility] Medical History Acute respiratory failure with hypoxia Allergic rhinitis Arthritis Asthma Atrial fibrillation Cellulitis of right lower extremity Chronic kidney disease (CKD) stage G1/A2, glomerular filtration rate (GFR) equal to or greater than 90 mL/min/1.73 square meter and albuminuria creatinine ratio between 30-299 mg/g CKD (chronic kidney disease), stage IV COPD (chronic obstructive pulmonary disease) Cor pulmonale Depression Diabetes Diabetic neuropathy associated with type 2 diabetes mellitus Hay fever Hyperlipidemia Hypertension Hypertension Knee pain Morbid obesity On home oxygen therapy DIEGO (obstructive sleep apnea) Paroxysmal A-fib Right leg pain Right-sided congestive heart failure Secondary pulmonary arterial hypertension Sleep apnea Venous insufficiency (chronic) (peripheral) Vitamin D deficiency Home Medications gabapentin 600 mg PO TIDCM 11/08/14 [History Last Taken 05/11/21 08:00] sertraline 50 mg PO DAILY 11/08/14 [History Last Taken 05/11/21 08:00] ergocalciferol (vitamin D2) 1,250 mcg (50,000 unit) capsule 50,000 unit PO QMONTH 30 Days #1 01/13/18 [History Last Taken 06/26/20] amlodipine 5 mg PO DAILY 03/31/18 [History Last Taken 05/11/21 08:00] linagliptin 5 mg PO DAILY 03/30/21 [History Last Taken 05/11/21 08:00] insulin lispro [Humalog KwikPen Insulin] See Protocol SUBCUT ACHS #0 ml 05/05/21 [Rx Last Taken 05/11/21 16:29] ipratropium-albuterol 3 ml INHALATION Q6H.RT #0 ml 05/05/21 [Rx Last Taken 05/10/21] metoprolol tartrate 25 mg PO BID #0 tab 05/05/21 [Rx Last Taken 05/11/21 08:00] atorvastatin [Lipitor] 10 mg PO DAILY 05/11/21 [History Last Taken 05/11/21 08:00] furosemide 40 mg PO BIDLX 05/11/21 [History Last Taken 05/11/21 08:00] insulin glargine [Lantus Solostar U-100 Insulin] 30 units SUBCUT BID 05/11/21 [History Last Taken 05/11/21 08:00] loratadine 10 mg PO DAILY 05/11/21 [History Last Taken 05/11/21 08:00] polyethylene glycol 3350 17 g PO DAILY 05/11/21 [History Last Taken 05/11/21 08:00] potassium chloride [Klor-Con M10] 10 meq PO DAILY 05/11/21 [History Last Taken 05/11/21 08:00] warfarin 3 mg PO DAILY 05/11/21 [History Last Taken 05/10/21 20:15] Allergy/AdvReac Type Severity Reaction Status Date / Time aspirin Allergy Unknown Itching Verified 05/11/21 14:38 ibuprofen Allergy Itching Verified 05/11/21 14:38 sulfamethoxazole Allergy cant Verified 05/11/21 14:38 [From ] remember trimethoprim [From ] Allergy cant Verified 05/11/21 14:38 remember Family History Mother CAD (coronary artery disease) Hypertension Father CAD (coronary artery disease) Hypertension Other Diabetes Heart disease Surgical History History of knee replacement procedure of right knee Hx of section Social History household members: spouse, family and children housing: house current occupational status: unemployed and retired Smoking Status: Never smoker ROS ROS ED Constitutional Constitutional ED: Reports other Details: fatigue ; Denies chills or fever(s) Eyes Eyes: Denies change in vision ENT ENT ED: Denies ear pain Cardiovascular Cardiovascular: Denies chest pain or palpitations Respiratory/Chest Respiratory/Chest: Reports dyspnea; Denies cough or dyspnea on exertion Gastrointestinal Gastrointestinal: Reports constipation; Denies abdominal pain or vomiting Musculoskeletal Musculoskeletal: Denies arthralgias or myalgias Integumentary Denies rash Neurologic Neurologic: Denies headache(s) EXAM Physical Exam Const Vital Signs: 05/11/21 14:39 05/11/21 14:43 05/11/21 14:44 Temperature 98.9 F 98.9 F Temperature Source Temporal Temporal Pulse Rate 117 H 117 H Respiratory Rate 13 13 Respiratory Effort Short of Breath Labored Respiratory Depth Shallow Blood Pressure 126/99 H 126/99 H Blood Pressure Mean 108 108 Pulse Ox 88 88 Oxygen Delivery Method Simple Mask Simple Mask Simple Mask Oxygen Flow Rate (L/min) 10 10.5 10.5 05/11/21 14:45 05/11/21 16:07 05/11/21 17:05 Temperature Temperature Source Pulse Rate 106 H 144 H Respiratory Rate 18 10 L Respiratory Effort Respiratory Depth Blood Pressure 149/89 H 91/79 Blood Pressure Mean 109 83 Pulse Ox 93 93 10 Oxygen Delivery Method Simple Mask Venturi Mask Room Air Oxygen Flow Rate (L/min) 10 05/11/21 17:08 05/11/21 18:40 Temperature Temperature Source Pulse Rate 97 Respiratory Rate 12 22 H Respiratory Effort Respiratory Depth Blood Pressure 128/95 H Blood Pressure Mean 106 Pulse Ox 85 95 Oxygen Delivery Method Non-Rebreather Bi-pap Oxygen Flow Rate (L/min) Positive well nourished, well developed and obese General Appearance ED: well developed and other Chronically ill-appearing Nutritional Appearance: obese HEENT Reports dry mucous membranes atraumatic Mouth ED: Yes dry mucous membranes Mouth: dry mucous membranes Eyes PERRL and EOMs intact bilaterally Neck no lymphadenopathy, supple and no JVD Resp normal respiratory effort Resp Narrative: Diminished breath sounds throughout Cardio regular rate, regular rhythm and no murmurs GI non-tender and non-distended Palpation: soft Extremity General Extremety ED: Yes edema; Negative for tenderness General Extremity: edema Neuro oriented x3 Sensorium / Orientation: alert Motor Exam: general weakness Psych mental status grossly normal Skin Lesions: no lesions Rashes: no rashes MDM MDM MDM Narrative Medical decision making narrative: Patient is evaluated for increased oxygen demands from her nursing facility, [facility]. She is on 12 L via nonrebreather in the ER upon arrival. Patient arrives with DNR paperwork from her facility does signed by herself as well as her PCP stated that she is DNR CC. Work-up obtained looking for cause of her increased hypoxia however. Patient is chronically anticoagulated on Coumadin to have a lower suspicion for PE. Chest x-ray shows bilateral exertional changes concerning for worsening CHF. Her BNP is also elevated from her baseline. No acutely ischemic changes on her EKG and her high sensitive troponin is normal. Patient's creatinine is at her baseline at 2.86. At some point patient was taken her oxygen off and becomes acutely hypoxic. She was cyanotic with oxygen saturation in the forties. Patient is mainly placed on a nonrebreather but looks like she was about to go to respiratory arrest. I did contact her significant other to let him know of her possible eminent especially as she is DNR CC. He came to the bedside and in the interim patient was placed on BiPAP. Patient did have improvement on BiPAP. With her significant other and on BiPAP patient had improvement of her mentation. She states that she is not ready to and does not want to be DNR CC anymore. She wants to resend it and is now DNR CCA with no intubation. Both patient and her significant other agreed to this. Patient is placed back on BiPAP and ABG obtained. ABG shows acute on chronic hypercapnic respiratory a cidosis. Patient is given IV Lasix and will be admitted for further management of likely CHF exacerbation. Patient and significant other are agreeable with this plan of care. Lab Data Labs: Laboratory Results - last 24 hr 05/11/21 05/11/21 05/11/21 16:02 16:02 16:02 WBC 8.2 RBC 3.42 L Hgb 10.2 L Hct 35.8 L MCV 104.7 H MCH 29.8 MCHC 28.5 L RDW Std Deviation 56.8 H RDW Coeff of Angelika 14.8 H Plt Count 212 MPV 10.6 Immature Gran % (Auto) 0.400 Neut % (Auto) 83.5 H Lymph % (Auto) 9.1 L [place] % (Auto) 6.2 Eos % (Auto) 0.4 Baso % (Auto) 0.4 Absolute Neuts (auto) 6.9 Absolute Lymphs (auto) 0.75 L Nucleated RBC % 0 PT 21.0 H INR 1.9 Sodium 138 Potassium 5.2 H Chloride 102 Carbon Dioxide 35.0 H Anion Gap 1 L BUN 95 H Creatinine 2.86 H Estim Creat Clear Calc 18.31 Est GFR (MDRD) Af Amer 21 L Est GFR (MDRD) Non-Af 17 L BUN/Creatinine Ratio 33.2 H Glucose 168 H Calcium 9.0 Troponin I High Sens 21 C-React Prot Ext Range B-Natriuretic Peptide Rheumatoid Factor 05/11/21 05/11/21 16:02 16:02 WBC RBC Hgb Hct MCV MCH MCHC RDW Std Deviation RDW Coeff of Angelika Plt Count MPV Immature Gran % (Auto) Neut % (Auto) Lymph % (Auto) [place] % (Auto) Eos % (Auto) Baso % (Auto) Absolute Neuts (auto) Absolute Lymphs (auto) Nucleated RBC % PT INR Sodium Potassium Chloride Carbon Dioxide Anion Gap BUN Creatinine Estim Creat Clear Calc Est GFR (MDRD) Af Amer Est GFR (MDRD) Non-Af BUN/Creatinine Ratio Glucose Calcium Troponin I High Sens C-React Prot Ext Range 19.20 H B-Natriuretic Peptide 312.1 H Rheumatoid Factor < 10.0 Radiography Chest X-Ray - ED: 1 View, Read by ED Physician, Read by Radiologist and CHF Diagnostic Testing: Radiology Impression Chest X-Ray 05/11/21 16:16 IMPRESSION: Progression of interstitial and airspace opacifications of both lung jose when compared to the previous study. Follow-up recommended to ensure resolution Electronically Signed: Bong Lamar MD at 16:44 EDT , Service support , Rhythm Strip Rhythm Strip: A-fib Rate: 95 Ectopy: PVC(s) EKG Initial EKG: Attestation: I personally reviewed and interpreted this EKG as follows: Interpretation: Atrial Flutter Comments: Atrial flutter with very variable AV block at a rate of 95 Rightward axis Normal QRS and QTc PVCs present No ischemic changes, normal ST segments Critical Care Time Critical Care Time: Yes Critical care time (excluding procedures): 30-74 minutes (45), Including time spent:, Discussing w/Patient &/or Family/Electrical Engineering Draftsperson, Arranging Admission or Transfer and Performing Direct Patient Care at Bedside Discharge Plan Dx/Rx/DC Orders Clinical Impression: Acute and chronic respiratory failure with hypoxia, Acute respiratory failure with hypoxia and hypercarbia Disposition Disposition: Acute Care [facility] Discharge Date/Time: 05/11/21 23:16
--- NOTE | 2021-05-11 16:16 | RAD_ITS ---
STUDY: X-RAY CHEST REASON FOR EXAM: Female, 70 years old. Worsening shortness of breath TECHNIQUE: Single AP portable view of the chest. COMPARISON: 04/29/2021 FINDINGS: EKG leads overlie the chest Lungs are expanded with superimposed interstitial and airspace opacifications which have progressed and worsened since the previous study. No demonstrated effusions. There is no demonstrated pleural abnormality. Normal size heart. Normal mediastinum and ray. Normal visualized pulmonary arteries. Normal visualized aortic arch and descending thoracic aorta. There are diffuse degenerative changes of the visualized thoracic spine. Normal visualized ribs, clavicles, and shoulders. There is no demonstrated abnormality of the visualized soft tissue structures of the upper abdomen. RAD/Chest 1 View (Portable) IMPRESSION: Progression of interstitial and airspace opacifications of both lung jose when compared to the previous study. Follow-up recommended to ensure resolution Electronically Signed: Bong Lamar MD at 16:44 EDT , Service support ,
[2021-05-11 16:18] LABS: Absolute Lymphocyte Count 0.75 X10^3/uL (0.83-4.51); Absolute Neutrophil Count 6.9 X10^3/uL (2.0-7.7); Basophil# 0.03 X10^3/uL; Basophil% 0.4 % (0-1); Eosinophil# 0.03 X10^3/uL; Eosinophils% 0.4 % (0-5); Hematocrit 35.8 % (37-47); Hemoglobin 10.2 g/dL (12.0-15.0); Lymphocyte # 0.75 X10^3/ul (0.83-4.51); Lymphocyte % 9.1 % (19-41); Mean Corp Hgb Conc 28.5 g/dL (32-36); Mean Corpuscular Hgb 29.8 pg (27.0-32.0); Mean Corpuscular Volume 104.7 fL (81-99); Mean Platelet Vol. 10.6 fl (6.2-12.0); Monocyte# 0.51 X10^3/uL; Monocyte% 6.2 % (0-10); NRBC Flagged by Analyzer 0 % (0-5); Neutrophil # 6.85 X10^3/uL (2.7-7.7); Neutrophil % 83.5 % (47-70); Platelet Count 212 K/mm3 (150-450); RBC Distribution Width CV 14.8 % (11.6-14.6); RBC Distribution Width SD 56.8 fl (35.1-43.9); Red Blood Count 3.42 M/mm3 (4.2-5.4); White Blood Count 8.2 K/mm3 (4.4-11.0)
[2021-05-11 16:30] LABS: International Normalized Ratio 1.9
[2021-05-11 16:37] LABS: Anion Gap 1 (5-15); BUN 95 mg/dL (7-18); BUN/Creat Ratio 33.2 RATIO (10-20); Chloride 102 mmol/L (98-107); Creatinine, Serum 2.86 mg/dL (0.55-1.02); EST Glomerular Filtration Rate 17 mL/min (>60); Est Glom Filt Rate - Afr Amer 21 mL/min (>60); Estimated Creatinine Clearance 18.31 ml/min; Glucose 168 mg/dL (74-106); Potassium 5.2 mmol/L (3.5-5.1); Sodium Level 138 mmol/L (136-145); Troponin-I HS 21 pg/mL (3.0-54.0)
[2021-05-11 16:44] LABS: BNP,B-Type NATRIURETIC PEPTIDE 312.1 pg/mL (0-100)
--- NOTE | 2021-05-11 17:33 | ED.RN ---
Dr. Martinez discussed pt's care with family member, pt's DNRCC and removing Bipap and replacing with nasal cannula and prn medication for comfort and paging Hospice.
[2021-05-11] MEDS: Furosemide 40 MG/4 ML Vial IV (18:42)
--- NOTE | 2021-05-11 19:26 | PCM.HP.STD ---
HPI - General HPI Narrative ELINA MEZA, is a 70 F who resides in a alf and has a history of chronic respiratory symptoms with recent admission about a month ago. Presented to hospital with shortness of breath that is increasing and above her baseline. Chest x-ray showing increasing bilateral pulmonary infiltrates. 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 [facility] Medical History Acute respiratory failure with hypoxia Allergic rhinitis Arthritis Asthma Atrial fibrillation Cellulitis of right lower extremity Chronic kidney disease (CKD) stage G1/A2, glomerular filtration rate (GFR) equal to or greater than 90 mL/min/1.73 square meter and albuminuria creatinine ratio between 30-299 mg/g CKD (chronic kidney disease), stage IV COPD (chronic obstructive pulmonary disease) Cor pulmonale Depression Diabetes Diabetic neuropathy associated with type 2 diabetes mellitus Hay fever Hyperlipidemia Hypertension Hypertension Knee pain Morbid obesity On home oxygen therapy DIEGO (obstructive sleep apnea) Paroxysmal A-fib Right leg pain Right-sided congestive heart failure Secondary pulmonary arterial hypertension Sleep apnea Venous insufficiency (chronic) (peripheral) Vitamin D deficiency Home Medications gabapentin 600 mg PO TIDCM 11/08/14 [History Last Taken 04/29/21] sertraline 50 mg PO DAILY 11/08/14 [History Last Taken 04/29/21] simvastatin 20 mg PO QHS 11/08/14 [History Last Taken 04/28/21] ergocalciferol (vitamin D2) 1,250 mcg (50,000 unit) capsule 50,000 unit PO QMONTH 30 Days #1 01/13/18 [History Last Taken 06/26/20] amlodipine 5 mg PO DAILY 03/31/18 [History Last Taken 04/29/21] acetaminophen 1,000 mg PO Q8H PRN PRN tab 04/14/18 [Rx Last Taken 07/08/20] warfarin 2.5 mg tablet 2.5 mg PO DAILY 05/22/18 [History Last Taken 04/29/21] albuterol sulfate 2 inh INHALATION 4X/DAY PRN PRN 03/18/21 [History Last Taken Unknown] linagliptin 5 mg PO DAILY 03/30/21 [History Last Taken 04/29/21] loratadine 10 mg capsule 10 mg PO DAILY 04/26/21 [History Last Taken 04/29/21] furosemide 40 mg PO BIDLX #0 tab 05/05/21 [Rx Last Taken Unknown] insulin glargine [Lantus Solostar U-100 Insulin] 30 units SUBCUT BID #0 ml 05/05/21 [Rx Last Taken Unknown] insulin lispro [Humalog KwikPen Insulin] See Protocol SUBCUT ACHS #0 ml 05/05/21 [Rx Last Taken Unknown] ipratropium-albuterol 3 ml INHALATION Q6H.RT #0 ml 05/05/21 [Rx Last Taken Unknown] metoprolol tartrate 25 mg PO BID #0 tab 05/05/21 [Rx Last Taken Unknown] Allergy/AdvReac Type Severity Reaction Status Date / Time aspirin Allergy Unknown Itching Verified 05/11/21 14:38 ibuprofen Allergy Itching Verified 05/11/21 14:38 sulfamethoxazole Allergy cant Verified 05/11/21 14:38 [From ] remember trimethoprim [From ] Allergy cant Verified 05/11/21 14:38 remember Family History Mother CAD (coronary artery disease) Hypertension Father CAD (coronary artery disease) Hypertension Other Diabetes Heart disease Surgical History History of knee replacement procedure of right knee Hx of section Social History household members: spouse, family and children housing: house current occupational status: unemployed and retired Smoking Status: Never smoker Vital Signs Vital Signs Vital Signs: 05/11/21 14:39 05/11/21 14:43 05/11/21 14:44 Temperature 37.2 C 37.2 C Temperature Source Temporal Temporal Pulse Rate 117 H 117 H Respiratory Rate 13 13 Respiratory Effort Short of Breath Labored Respiratory Depth Shallow Blood Pressure 126/99 H 126/99 H Blood Pressure Mean 108 108 Pulse Ox 88 88 Oxygen Delivery Method Simple Mask Simple Mask Simple Mask Oxygen Flow Rate (L/min) 10 10.5 10.5 05/11/21 14:45 05/11/21 16:07 05/11/21 17:05 Temperature Temperature Source Pulse Rate 106 H 144 H Respiratory Rate 18 10 L Respiratory Effort Respiratory Depth Blood Pressure 149/89 H 91/79 Blood Pressure Mean 109 83 Pulse Ox 93 93 10 Oxygen Delivery Method Simple Mask Venturi Mask Room Air Oxygen Flow Rate (L/min) 10 05/11/21 17:08 05/11/21 18:40 05/11/21 19:22 Temperature Temperature Source Pulse Rate 97 114 H Respiratory Rate 12 22 H 18 Respiratory Effort Respiratory Depth Blood Pressure 128/95 H 132/81 H Blood Pressure Mean 106 98 Pulse Ox 85 95 92 Oxygen Delivery Method Non-Rebreather Bi-pap Bi-pap Oxygen Flow Rate (L/min) Weight Weight: 167.8 kg Body Mass Index (BMI) 57.9 Physical Exam Narrative General. Morbidly obese, ill looking, dyspneic at rest on BiPAP. HEENT. Oral mucosa dry. Neck neck is supple. Heart. Heart sounds are distant. No murmurs heard. Lungs. Diminished breath sounds in the right hemithorax. Clear anteriorly on the left. Abdomen. Obese and moves with respiration. 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 Cranial nerves II to XII grossly intact. Results Lab / Micro Data Result Diagrams: 05/11/21 16:02 05/11/21 16:02 Labs: Laboratory Results - last 24 hr 05/11/21 16:02: WBC 8.2, RBC 3.42 L, Hgb 10.2 L, Hct 35.8 L, MCV 104.7 H, MCH 29.8, MCHC 28.5 L, RDW Std Deviation 56.8 H, RDW Coeff of Angelika 14.8 H, Plt Count 212, MPV 10.6, Immature Gran % (Auto) 0.400, Neut % (Auto) 83.5 H, Lymph % (Auto) 9.1 L, [place] % (Auto) 6.2, Eos % (Auto) 0.4, Baso % (Auto) 0.4, Absolute Neuts (auto) 6.9, Absolute Lymphs (auto) 0.75 L, Nucleated RBC % 0 05/11/21 16:02: PT 21.0 H, INR 1.9 05/11/21 16:02: Sodium 138, Potassium 5.2 H, Chloride 102, Carbon Dioxide 35.0 H, Anion Gap 1 L, BUN 95 H, Creatinine 2.86 H, Estim Creat Clear Calc 18.31, Est GFR (MDRD) Af Amer 21 L, Est GFR (MDRD) Non-Af 17 L, BUN/Creatinine Ratio 33.2 H, Glucose 168 H, Calcium 9.0, Troponin I High Sens 21 05/11/21 16:02: B-Natriuretic Peptide 312.1 H Micro: Microbiology 05/11/21 15:37 Nasal Secretion SARS-CoV-2 Antigen (Rapid) - Final Radiology Impression Chest X-Ray 05/11/21 16:16 IMPRESSION: Progression of interstitial and airspace opacifications of both lung jose when compared to the previous study. Follow-up recommended to ensure resolution Electronically Signed: Bong Lamar MD at 16:44 EDT , Service support , Assessment & Plan Assessment/Plan (1) Acute and chronic respiratory failure with hypoxia: PLAN: Patient appears to have baseline OHS and DIEGO probably. Known to have chronic diastolic congestive heart failure. Not very convinced the patient is in exacerbation though and chest x-ray findings not every suggestive of cardiogenic pulmonary edema. Chest x-ray showing increasing and worsening bilateral pulmonary and interstitial infiltrates. Suspect patient may have an interstitial pneumonia pneumonitis. Will order chest CT without contrast. Consult pulmonology. Limited rheumatological/autoimmune work-up including ANCA and rheumatoid factor. Requiring increasing oxygen supplementation. Currently placed on BiPAP. We will continue. (2) Interstitial pneumonia: PLAN: See work-up as enumerated above. (3) Paroxysmal A-fib: PLAN: Chronic anticoagulation with Coumadin. We will continue. (4) Diabetic neuropathy associated with type 2 diabetes mellitus: QUALIFIERS: Diabetes mellitus complication detail: diabetic polyneuropathy Qualified Code(s): E11.42 - Type 2 diabetes mellitus with diabetic polyneuropathy (5) DM type 2 (diabetes mellitus, type 2): QUALIFIERS: Diabetes mellitus [facility] insulin use: with keno terminal operator use Diabetes mellitus complication status: with kidney complications Diabetes mellitus complication detail: with nephropathy Qualified Code(s): E11.21 - Type 2 diabetes mellitus with diabetic nephropathy; Z79.4 - retirement (current) use of insulin PLAN: Continue current diabetic regimen. Place on insulin sliding scale. Diabetic diet. Accu-Cheks before meals and at bedtime (6) CKD stage 4 due to type 2 diabetes mellitus: PLAN: Monitor electrolytes and renal function while on IV Lasix. Charges/Coding Visit Charges Inpatient E&M: 72272 Init Hosp L3
[2021-05-11 19:41] LABS: Allen Test Positive; Base Excess 5 mmol/L (-2 to +2); Blood Gas Specimen Type ART; FI02 100; O2 Delivery Device BiPAP; PO2 85 mmHG (75-100); RR 16; SITE L Radial; SO2 93 % (95-99); Total Carbon Dioxide 36 mmol/L; Vt 375; pCO2 83.2 mmHg (35-45); pH 7.21 (7.35-7.45)
[2021-05-11 20:11] LABS: Rheumatoid Factor < 10.0 IU/mL (<15)
[2021-05-11 20:22] LABS: Mucous, Urine 0 SEEN /hpf (<or=2+)
[2021-05-11 20:33] LABS: Color, Urine Yellow (Yellow); Glucose, Dipstick Normal (Normal); Ketone-Dipstick Negative (Negative); Leukocyte Esterase-Dipstick 500 /ul (Negative); Nitrite-Dipstick Negative (Negative); Occult Blood-Urine 50 /ul (Negative); Protein-Dipstick 30 mg/dl (Negative); Specific Gravity, Urine 1.015 (1.002-1.030); Urine Bilirubin Dipstick Negative (Negative); Urine Clarity Cloudy (Clear); Urine Urobilinogen Normal (Normal)
[2021-05-11 20:34] LABS: Hyaline Cast 0-5 SEEN /lpf (0-5)
[2021-05-11 20:35] LABS: Bacteria 2+ /hpf (None Seen); White Blood Cells 10-25 SEEN /hpf (0-5)
[2021-05-11 20:36] LABS: Red Blood Cells-Urine 0-5 SEEN /hpf (0-5); Squamous Epithelial Cells - UA 0-5 SEEN /hpf (5-10)
--- NOTE | 2021-05-11 20:52 | CT_ITS ---
STUDY: CT CHEST WITHOUT CONTRAST REASON FOR EXAM: Female, 70 years old. Increasing and worsening pulmonary infiltrates, RADIATION DOSAGE (If Supplied By Facility): CTDIvol = ( 20.15 ) mGy, DLP = ( 679.67 ) mGycm TECHNIQUE: Transaxial imaging was performed without the administration of intravenous contrast material. Individualized dose optimization techniques were used for this CT. COMPARISON: None. FINDINGS: Bilateral multifocal and confluent groundglass opacities are noted.. There are also large bilateral effusions larger on the right with consolidation of the lower lobes. Heart is enlarged and there is mild coronary artery calcification.. Normal mediastinum. Normal hilar regions. Normal unenhanced pulmonary arteries. Atherosclerotic changes of the aorta without evidence for aneurysm. Dorsal spine demonstrates degenerative change. Mild ascitic fluid noted within the abdomen. CT/Chest without Contrast IMPRESSION: Findings consistent with pulmonary edema with large bilateral effusions and consolidation of the lower lobes possibly in association with underlying Covid 19 pneumonia Electronically Signed: Claude Davis MD at 22:24 EDT , Service support ,
[2021-05-11 22:16] LABS: Erythrocyte Sedimentation Rate 57 mm/hr (0-30)
--- NOTE | 2021-05-11 23:04 | PCS.PANDOC ---
PANDEMIC DOCUMENTATION INITIATED: Date: 04/10/2021 Time: 190
[2021-05-12] VITALS (22 sets, daily range): BP systolic 102–144; BP diastolic 65–88; PULSE 73–100; RESP 14–27; TEMP 36.1–36.8; O2SAT 90–100
[2021-05-12 00:30] LABS: Bedside Glucose 142 mg/dL (70-110)
[2021-05-12] MEDS: Furosemide 40 MG/4 ML Vial IV ×3 (01:27→21:45)
[2021-05-12 06:45] LABS: Bedside Glucose 116 mg/dL (70-110)
[2021-05-12 06:47] LABS: Absolute Lymphocyte Count 0.93 X10^3/uL (0.83-4.51); Absolute Neutrophil Count 4.7 X10^3/uL (2.0-7.7); Basophil# 0.03 X10^3/uL; Basophil% 0.5 % (0-1); Eosinophil# 0.11 X10^3/uL; Eosinophils% 1.7 % (0-5); Hematocrit 32.7 % (37-47); Hemoglobin 9.3 g/dL (12.0-15.0); Lymphocyte # 0.93 X10^3/ul (0.83-4.51); Lymphocyte % 14.6 % (19-41); Mean Corp Hgb Conc 28.4 g/dL (32-36); Mean Corpuscular Hgb 29.6 pg (27.0-32.0); Mean Corpuscular Volume 104.1 fL (81-99); Mean Platelet Vol. 10.6 fl (6.2-12.0); Monocyte# 0.54 X10^3/uL; Monocyte% 8.5 % (0-10); NRBC Flagged by Analyzer 0 % (0-5); Neutrophil # 4.72 X10^3/uL (2.7-7.7); Neutrophil % 74.4 % (47-70); Platelet Count 200 K/mm3 (150-450); RBC Distribution Width CV 14.7 % (11.6-14.6); RBC Distribution Width SD 56.4 fl (35.1-43.9); Red Blood Count 3.14 M/mm3 (4.2-5.4); White Blood Count 6.4 K/mm3 (4.4-11.0)
[2021-05-12 07:16] LABS: ALB/GLOB Ratio 0.5 RATIO (0.9-2.4); AST(SGOT) 11 U/L (15-37); Alanine Aminotransfer ALT/SGPT 12 U/L (13-56); Albumin, Serum 2.5 g/dL (3.2-5.0); Alkaline Phosphatase 53 U/L (45-117); Anion Gap 4 (5-15); BUN 91 mg/dL (7-18); BUN/Creat Ratio 32.5 RATIO (10-20); Calcium,Total 8.9 mg/dL (8.5-10.1); Chloride 104 mmol/L (98-107); EST Glomerular Filtration Rate 18 mL/min (>60); Est Glom Filt Rate - Afr Amer 22 mL/min (>60); Globulin 4.9 g/dL (2.2-4.2); Glucose 107 mg/dL (74-106); Potassium 4.5 mmol/L (3.5-5.1); Protein, Total 7.4 g/dL (6.4-8.2); Sodium Level 142 mmol/L (136-145)
[2021-05-12 12:20] LABS: Bedside Glucose 102 mg/dL (70-110)
--- NOTE | 2021-05-12 12:31 | CON.PCM.CC_ITS ---
Assessment & Plan Assessment/Plan (1) Acute and chronic respiratory failure with hypoxia: (2) Acute respiratory failure with hypoxia and hypercarbia: (3) CKD stage 4 due to type 2 diabetes mellitus: (4) Debility: (5) DIEGO (obstructive sleep apnea): (6) Cor pulmonale: (7) Paroxysmal A-fib: PLAN: RECOMMENDATIONS: 1. Increase diuresis with goal of -1 to 2 L/day 2. Continue AVAPS for now, but reinitiate baseline BiPAP (10/08) therapy with sleep in the future 3. Walking oximetry prior to discharge 4. Monitor potassium for potential repletion 5. [employer] T[employer] Builder evaluation IMPRESSIONS: 1. Acute on chronic hypoxic respiratory insufficiency secondary to probable cor pulmonale Clinical suspicion for slow progression to cor pulmonale secondary to noncompliance with DIEGO and low-salt therapy. Long discussion with the patient that noncompliance of BiPAP therapy could be leading to nocturnal hypoxia, therefore increasing pulmonary artery pressures. Patient with significant RV dysfunction, improvement in renal function with diuresis and poor compliance with DIEGO therapy show cor pulmonale as a likely etiology. Agree with scheduling Lasix, but will increase dosing. Goal is -1 to 2 L/day. Low clinical suspicion for infectious etiology. Rosales discussion with the patient that compliance with BiPAP will be necessary to avoid repeat hospitalization and degradation following discharge. Patient appears to be contemplative at this time. 2. Hyperkalemia in setting of CKD stage IV secondary to DMII Resolved. Clinical suspicion for progression of kidney disease secondary to prerenal etiology secondary to poor mechanics with volume overload. Will monitor creatinine as patient receives diuresis. Diuresis may lead to better Starling forces and better cardiac output. Patient is on telemetry. Hypokalemia likely secondary to diuretic therapy. 3. Diabetes mellitus type 2/hypertension/paroxysmal A. fib/morbid obesity/poor follow-up/mural thrombus Complicates care, management, recovery and prognosis. Do not believe patient requires any steroids for underlying pulmonary disorder. This would exacerbate diabetes management. Patient is rate controlled. Daily INRs. INR is almost therapeutic at this time. HPI Consult Data Date of Consult: 05/12/21 HPI Narrative HPI Narrative: ELINA MEZA is a 70 F, with past medical history listed below and well-known to me from previous visits, who presents to [facility] 05/11/2021 from [facility] secondary to worsening hypoxia. Patient reportedly wears 4 to 6 L at baseline, but was noted to have significant worsening in oxygenation. Patient reportedly had a CODE STATUS of DNR Comfort Care only, but reversed this to DNR Comfort Care arrest and was brought in for evaluation. Patient had stated that she felt more fatigued and was having dyspnea on exertion. In the ER, patient was noted to be tachycardic to 117 bpm, afebrile and hypoxic. Patient's blood pressures have been acceptable. Laboratory work-up was significant for an anemia of 10.2, elevated INR of 1.9, potassium of 5.2, BUN of 95 and creatinine of 2.86. BNP was elevated and CRP was 19.2. RF was negative. Chest x-ray showed diffuse interstitial and airspace opacities and EKG showed a flutter. Patient was progressively hypoxic, so was placed on BiPAP and transferred to the PCU for evaluation. Since being in the PCU, patient is frustrated that she cannot tolerate being off of the BiPAP. Patient states that she has a 70 pound weight gain since leaving the hospital the last time. Patient states that she has been staying at the long-term. Patient does report that they have not been providing her a BiPAP to wear with sleep. Patient had reported some leg weakness, but it also noted some significant increase in lower extremity edema. Patient states she tends to eat what they give me. Patient denies any fevers, chills, nausea or vomiting. No trauma or falls has been reported. Patient denies any dysuria or chest pain. Review of systems otherwise negative from a constitutional, HEENT, respiratory, cardiovascular, GI, genitourinary, musculoskeletal, skin, neurologic, psychiatric and hematologic system unless stated above. [facility] Medical History Acute respiratory failure with hypoxia Allergic rhinitis Arthritis Asthma Atrial fibrillation Cellulitis of right lower extremity Chronic kidney disease (CKD) stage G1/A2, glomerular filtration rate (GFR) equal to or greater than 90 mL/min/1.73 square meter and albuminuria creatinine ratio between 30-299 mg/g CKD (chronic kidney disease), stage IV COPD (chronic obstructive pulmonary disease) Cor pulmonale Depression Diabetes Diabetic neuropathy associated with type 2 diabetes mellitus Hay fever Hyperlipidemia Hypertension Hypertension Knee pain Morbid obesity On home oxygen therapy DIEGO (obstructive sleep apnea) Paroxysmal A-fib Right leg pain Right-sided congestive heart failure Secondary pulmonary arterial hypertension Sleep apnea Venous insufficiency (chronic) (peripheral) Vitamin D deficiency Home Medications gabapentin 600 mg PO TIDCM 11/08/14 [History Last Taken 05/11/21 08:00] sertraline 50 mg PO DAILY 11/08/14 [History Last Taken 05/11/21 08:00] ergocalciferol (vitamin D2) 1,250 mcg (50,000 unit) capsule 50,000 unit PO QMONTH 30 Days #1 01/13/18 [History Last Taken 06/26/20] amlodipine 5 mg PO DAILY 03/31/18 [History Last Taken 05/11/21 08:00] linagliptin 5 mg PO DAILY 03/30/21 [History Last Taken 05/11/21 08:00] insulin lispro [Humalog KwikPen Insulin] See Protocol SUBCUT ACHS #0 ml 05/05/21 [Rx Last Taken 05/11/21 16:29] ipratropium-albuterol 3 ml INHALATION Q6H.RT #0 ml 05/05/21 [Rx Last Taken 05/10/21] metoprolol tartrate 25 mg PO BID #0 tab 05/05/21 [Rx Last Taken 05/11/21 08:00] atorvastatin [Lipitor] 10 mg PO DAILY 05/11/21 [History Last Taken 05/11/21 08:00] furosemide 40 mg PO BIDLX 05/11/21 [History Last Taken 05/11/21 08:00] insulin glargine [Lantus Solostar U-100 Insulin] 30 units SUBCUT BID 05/11/21 [History Last Taken 05/11/21 08:00] loratadine 10 mg PO DAILY 05/11/21 [History Last Taken 05/11/21 08:00] polyethylene glycol 3350 17 g PO DAILY 05/11/21 [History Last Taken 05/11/21 08:00] potassium chloride [Klor-Con M10] 10 meq PO DAILY 05/11/21 [History Last Taken 05/11/21 08:00] warfarin 3 mg PO DAILY 05/11/21 [History Last Taken 05/10/21 20:15] Allergy/AdvReac Type Severity Reaction Status Date / Time aspirin Allergy Unknown Itching Verified 05/11/21 14:38 ibuprofen Allergy Itching Verified 05/11/21 14:38 sulfamethoxazole Allergy cant Verified 05/11/21 14:38 [From ] remember trimethoprim [From ] Allergy cant Verified 05/11/21 14:38 remember Family History Mother CAD (coronary artery disease) Hypertension Father CAD (coronary artery disease) Hypertension Other Diabetes Heart disease Surgical History History of knee replacement procedure of right knee Hx of section Social History household members: spouse, family and children housing: house current occupational status: unemployed and retired Smoking Status: Never smoker ROS ROS Narrative See HPI Physical Exam Const alert, oriented x3 and no apparent distress General Appearance: on BiPAP Orientation / Consciousness: awake, oriented to person, oriented to place and oriented to time HEENT normocephalic and moist oral mucous membranes Eyes PERRL, EOMs intact bilaterally and conjunctivae normal Neck no lymphadenopathy Resp Auscultation: rales and diminished lung sounds; Negative for rhonchi or wheezes Cardio Cardio Narrative: Atrial flutter, rate controlled Peripheral Pulses: pulses 2+ throughout GI normal to inspection, nondistended, normoactive bowel sounds, non-tender and non-distended Extremity normal to inspection General Extremity: edema bilateral lower extremity Details: severe (No nahum wraps in place) Skin no rashes or lesions noted Lesions: no lesions Rashes: no rashes Trauma: no lacerations or abrasions Neuro CN's II-XII intact bilaterally, no focal motor deficits, no sensory deficits noted and deep tendon reflexes 2+ bilaterally Psych mental status grossly normal and affect normal Lab / Micro Data Result Diagrams: 05/12/21 06:32 05/12/21 06:32 Labs: Laboratory Results - last 24 hr 05/11/21 16:02: WBC 8.2, RBC 3.42 L, Hgb 10.2 L, Hct 35.8 L, MCV 104.7 H, MCH 29.8, MCHC 28.5 L, RDW Std Deviation 56.8 H, RDW Coeff of Angelika 14.8 H, Plt Count 212, MPV 10.6, Immature Gran % (Auto) 0.400, Neut % (Auto) 83.5 H, Lymph % (Auto) 9.1 L, [place] % (Auto) 6.2, Eos % (Auto) 0.4, Baso % (Auto) 0.4, Absolute Neuts (auto) 6.9, Absolute Lymphs (auto) 0.75 L, Nucleated RBC % 0 05/11/21 16:02: PT 21.0 H, INR 1.9 05/11/21 16:02: Sodium 138, Potassium 5.2 H, Chloride 102, Carbon Dioxide 35.0 H , Anion Gap 1 L, BUN 95 H, Creatinine 2.86 H, Estim Creat Clear Calc 18.31, Est GFR (MDRD) Af Amer 21 L, Est GFR (MDRD) Non-Af 17 L, BUN/Creatinine Ratio 33.2 H , Glucose 168 H, Calcium 9.0, Troponin I High Sens 21 05/11/21 16:02: B-Natriuretic Peptide 312.1 H 05/11/21 16:02: C-React Prot Ext Range 19.20 H, Rheumatoid Factor < 10.0 05/11/21 20:15: Urine Color Yellow, Urine Clarity Cloudy, Urine pH 5.0, Ur Specific [place] 1.015, Urine Protein 30 H, Urine Glucose (UA) Normal, Urine Ketones Negative, Urine Occult Blood 50 H, Urine Nitrite Negative, Urine Artie irubin Negative, Urine Urobilinogen Normal, Ur Leukocyte Esterase 500 H, Urine RBC 0-5 SEEN, Urine WBC 10-25 SEEN, Ur Squamous Epith Cells 0-5 SEEN, Urine Bacteria 2+, Hyaline Casts 0-5 SEEN, Urine Mucus 0 SEEN 05/11/21 22:00: ESR 57 H 05/12/21 00:05: POC Glucose 142 H 05/12/21 04:33: COVID-19 (АНДРЕЙ) Not Detected 05/12/21 06:32: WBC 6.4, RBC 3.14 L, Hgb 9.3 L, Hct 32.7 L, MCV 104.1 H, MCH 29.6, MCHC 28.4 L, RDW Std Deviation 56.4 H, RDW Coeff of Angelika 14.7 H, Plt Count 200, MPV 10.6, Immature Gran % (Auto) 0.300, Neut % (Auto) 74.4 H, Lymph % (Auto) 14.6 L, [place] % (Auto) 8.5, Eos % (Auto) 1.7, Baso % (Auto) 0.5, Absolute Neuts (auto) 4.7, Absolute Lymphs (auto) 0.93, Nucleated RBC % 0 05/12/21 06:32: Sodium 142, Potassium 4.5, Chloride 104, Carbon Dioxide 34.0 H, Anion Gap 4 L, BUN 91 H, Creatinine 2.80 H, Estim Creat Clear Calc 18.70, Est GFR (MDRD) Af Amer 22 L, Est GFR (MDRD) Non-Af 18 L, BUN/Creatinine Ratio 32.5 H , Glucose 107 H, Calcium 8.9, Total Bilirubin 0.60, AST 11 L, ALT 12 L, Alkaline Phosphatase 53, Total Protein 7.4, Albumin 2.5 L, Globulin 4.9 H, Albumin/Globulin Ratio 0.5 L 05/12/21 06:34: POC Glucose 116 H 05/12/21 12:09: POC Glucose 102 Micro: Microbiology 05/11/21 15:37 Nasal Secretion SARS-CoV-2 Antigen (Rapid) - Final ABG Data ABG results: ABG 05/11/21 19:36 Specimen Type ART Sample Site L Radial pH 7.21 L Bicarbonate Actual 33.0 H Total CO2 36 Base Excess 5 H O2 Saturation 93 L O2 % 100 ABG pCO2 83.2 H* ABG pO2 85 Saroj Test Positive Respiration Rate 16 O2 Delivery Device BiPAP Tidal Volume 375 Crit Call To/Read Back Yes Blood [facility] AV[facility]IN[facility] Rhythm Strip Rhythm Strip: A-fib Rate: 95 Ectopy: PVC(s) Radiology Impression Chest X-Ray 05/11/21 16:16 IMPRESSION: Progression of interstitial and airspace opacifications of both lung jose when compared to the previous study. Follow-up recommended to ensure resolution Electronically Signed: Bong Lamar MD at 16:44 EDT , Service support , Chest CT 05/11/21 20:52 IMPRESSION: Findings consistent with pulmonary edema with large bilateral effusions and consolidation of the lower lobes possibly in association with underlying Covid 19 pneumonia Electronically Signed: Claude Davis MD at 22:24 EDT , Service support , Charges/Coding Visit Charges Inpatient E&M: 07953 Init Hosp L3
[2021-05-12] MEDS: Sertraline 50 MG Tablet PO (13:04)
[2021-05-12] MEDS: Metoprolol Tartrate 25 MG Tablet PO ×2 (13:04→21:45)
[2021-05-12] MEDS: Gabapentin 600 MG Tablet PO ×2 (13:04→17:48)
[2021-05-12] MEDS: LINAGLIPTIN 5 MG TABLET PO (13:04)
[2021-05-12] MEDS: amLODIPine 5 MG Tablet PO (13:04)
--- NOTE | 2021-05-12 13:10 | NURSING ---
ATTEMPTING O2 AT 10L VIA HIGH FLOW TUBING SO PT MAY EAT LUNCH. SPO2 DECREASES TO 84%, PT REPORTS SOB. BIPAP REAPPLIED WITH FIO2 AT 80%.
--- NOTE | 2021-05-12 14:40 | PCM.HP.PAL ---
HPI - General General Date of Admission: 05/11/21 HPI Narrative ELINA MEZA, is a 70 F who presented back to [facility] 05/11/21 from [place] with complaints of worsening hypoxia and fatigue. Patient has baseline oxygen requirements of 4 to 6 L per nasal cannula. She was on 12 L via nonrebreather in the ER upon arrival. Patient apparently had taken off oxygen at the long-term and her saturation was in the 40s. Recently signed a DNR CC. Chest x-ray indicating probable worsening CHF. She decompensated and had appeared to be approaching respiratory arrest, they put her on BiPAP and she did have some improvement with that. She then was anxious and stated she was not ready to , rescinded her DNR CC and changed to DNR CCA. She was admitted for further evaluation and management. Palliative care was consulted after patient was fully expecting to go hospice, however then rescinded as above. She was seen in consultation her last hospitalization 05/04/2021 for similar complaints. She did have pneumonia at that time and was still on antibiotics. Again, has chronic orthopnea and lower extremity edema and was previously diuresed. She is being diuresed this admission as well. Patient was having falls at home so was discharged last admission to [place] for skilled therapy. Patient follows with Dr. Lind, nephrology and Dr. Campos, pulmonology. Patient is currently requiring continuous BiPAP, if taken off she desaturates into the 70s and 80s. She is able to communicate through the BiPAP and reports her breathing has gotten significantly better since since she was admitted yesterday. She denies any nausea or vomiting. No diarrhea. She does report constipation and is wondering if she has anything ordered for that. No urinary issues. Complains of activity intolerance. Some lower extremity edema. She feels bloated in her abdomen. No current cough with the BiPAP on. Denies any fever or chills. States she does not want to return to [place], she did not like it there. Her plan is to return home or have family stay with her. [facility] Medical History Acute respiratory failure with hypoxia Allergic rhinitis Arthritis Asthma Atrial fibrillation Cellulitis of right lower extremity Chronic kidney disease (CKD) stage G1/A2, glomerular filtration rate (GFR) equal to or greater than 90 mL/min/1.73 square meter and albuminuria creatinine ratio between 30-299 mg/g CKD (chronic kidney disease), stage IV COPD (chronic obstructive pulmonary disease) Cor pulmonale Depression Diabetes Diabetic neuropathy associated with type 2 diabetes mellitus Hay fever Hyperlipidemia Hypertension Hypertension Knee pain Morbid obesity On home oxygen therapy DIEGO (obstructive sleep apnea) Paroxysmal A-fib Right leg pain Right-sided congestive heart failure Secondary pulmonary arterial hypertension Sleep apnea Venous insufficiency (chronic) (peripheral) Vitamin D deficiency Home Medications gabapentin 600 mg PO TIDCM 11/08/14 [History Last Taken 05/11/21 08:00] sertraline 50 mg PO DAILY 11/08/14 [History Last Taken 05/11/21 08:00] ergocalciferol (vitamin D2) 1,250 mcg (50,000 unit) capsule 50,000 unit PO QMONTH 30 Days #1 01/13/18 [History Last Taken 06/26/20] amlodipine 5 mg PO DAILY 03/31/18 [History Last Taken 05/11/21 08:00] linagliptin 5 mg PO DAILY 03/30/21 [History Last Taken 05/11/21 08:00] insulin lispro [Humalog KwikPen Insulin] See Protocol SUBCUT ACHS #0 ml 05/05/21 [Rx Last Taken 05/11/21 16:29] ipratropium-albuterol 3 ml INHALATION Q6H.RT #0 ml 05/05/21 [Rx Last Taken 05/10/21] metoprolol tartrate 25 mg PO BID #0 tab 05/05/21 [Rx Last Taken 05/11/21 08:00] atorvastatin [Lipitor] 10 mg PO DAILY 05/11/21 [History Last Taken 05/11/21 08:00] furosemide 40 mg PO BIDLX 05/11/21 [History Last Taken 05/11/21 08:00] insulin glargine [Lantus Solostar U-100 Insulin] 30 units SUBCUT BID 05/11/21 [History Last Taken 05/11/21 08:00] loratadine 10 mg PO DAILY 05/11/21 [History Last Taken 05/11/21 08:00] polyethylene glycol 3350 17 g PO DAILY 05/11/21 [History Last Taken 05/11/21 08:00] potassium chloride [Klor-Con M10] 10 meq PO DAILY 05/11/21 [History Last Taken 05/11/21 08:00] warfarin 3 mg PO DAILY 05/11/21 [History Last Taken 05/10/21 20:15] Allergy/AdvReac Type Severity Reaction Status Date / Time aspirin Allergy Unknown Itching Verified 05/11/21 14:38 ibuprofen Allergy Itching Verified 05/11/21 14:38 sulfamethoxazole Allergy cant Verified 05/11/21 14:38 [From ] remember trimethoprim [From ] Allergy cant Verified 05/11/21 14:38 remember Family History Mother CAD (coronary artery disease) Hypertension Father CAD (coronary artery disease) Hypertension Other Diabetes Heart disease Surgical History History of knee replacement procedure of right knee Hx of section Social History household members: spouse, family and children housing: house current occupational status: unemployed and retired Smoking Status: Never smoker ROS ROS Narrative Review of systems otherwise negative from a constitutional, HEENT, respiratory, cardiovascular, GI, genitourinary, musculoskeletal, skin, neurologic, psychiatric and hematologic system unless stated above. Physical Exam Const alert and oriented x3 General Appearance: cooperative, ill appearing and on BiPAP Nutritional Appearance: morbidly obese HEENT normocephalic and head/scalp atraumatic HEENT Narrative: Large neck circumference Mouth: dry mucous membranes Neck supple General: trachea midline Resp Resp Narrative: Tachypnea if tries to speak too much. Effort and Inspection: symmetric chest movement; Negative for able to speak in complete sentences Auscultation: diminished lung sounds diffuse Cardio S1 normal heart sound and S2 normal heart sound Rate: tachycardic Rhythm: abnormal rhythm GI normal to inspection, nondistended, normoactive bowel sounds Extremity Extremity Narrative: Lower extremity edema. Moves all extremities Skin no rashes or lesions noted Neuro moves all extremities and no focal motor deficits Psych Activity / Motor Behavior: restless Mood & Affect: anxious, tearful and fearful Attention / Concentration: attention grossly intact Assessment & Plan Assessment/Plan (1) Shortness of breath: (2) Debility: (3) Acute respiratory failure with hypoxia and hypercarbia: (4) CKD stage 4 due to type 2 diabetes mellitus: (5) DIEGO (obstructive sleep apnea): (6) On home oxygen therapy: (7) Cor pulmonale: (8) Venous insufficiency (chronic) (peripheral): (9) Paroxysmal A-fib: (10) Asthma: QUALIFIERS: Asthma complication type: unspecified Asthma persistence: unspecified Asthma severity: unspecified severity Qualified Code(s): J45.909 - Unspecified asthma, uncomplicated (11) Morbid obesity: (12) Depression: QUALIFIERS: Depression Type: unspecified Qualified Code(s): F32.9 - Major depressive disorder, single episode, unspecified (13) Diabetic neuropathy associated with type 2 diabetes mellitus: QUALIFIERS: Diabetes mellitus complication detail: diabetic polyneuropathy Qualified Code(s): E11.42 - Type 2 diabetes mellitus with diabetic polyneuropathy (14) Hypertension: QUALIFIERS: Hypertension type: renovascular hypertension Qualified Code(s): I15.0 - Renovascular hypertension (15) Hyperlipidemia: QUALIFIERS: Hyperlipidemia type: unspecified Qualified Code(s): E78.5 - Hyperlipidemia, unspecified PLAN: 70-year-old F readmitted to the hospital with acute on chronic hypoxemic and hypercarbic respiratory failure and a significant debility, seen today for palliative care f/u for symptom management of shortness of breath and weakness. She was originally seen 05/04/21 and was set up for f/u at [place]. 1. Shortness of breath: somewhat improved but still requiring continuous BiPAP. She can take short breaks. History of cor pulmonale, on home oxygen, morbidly obese, which is likely contributing to the severity of her dyspnea. Diuresing with IV Lasix. Palliative will see her for supportive care if she is wanting services. 2. Debility: Multifactorial, barely able to take a few steps at baseline. Therapy following, she was at [place] for rehab but is refusing to return. She wants to go home with significant other. It is unclear if she will be able to care for herself. 3. Acute on chronic hypoxemic and hypercarbic respiratory failure/DIEGO/home O2: See above. Follow-up with pulmonary. 4. Morbid obesity: Again, likely significantly contributing to shortness of breath. She was advised to lose weight. Would recommend dietitian consult. 5. Depression/asthma/PAF/venous insufficiency/type II DM/HLD/HTN/vitamin D deficiency/CKD stage IV: Complicates overall care, management, recovery, and prognosis. She is anticoagulated on Coumadin. Appears to be in atrial fibrillation. Rate is controlled. Thank you for the opportunity to participate in this patient's care, please do not hesitate to contact [facility] with any further questions or concerns. Palliative direct line is [phone]. Patient will have a liaison visit to enroll with palliative services. She is agreeable at this time. Goals would be supportive care, management of shortness of breath, reduction in hospitalizations, and improvement in quality of life. Greater than 50% of F2F visit dedicated to education and counseling of palliative care services, medications, comorbid conditions and potential assistance with management, and plan of care moving forward. Start time: 1438 End time: 1532
--- NOTE | 2021-05-12 15:41 | CASEMGMT ---
Readmission chart review: 03/30-04/04/21 Hyperkalemia, possible COVID(ruled out) 04/29-05/05/21 ESPERANZA, debility 05/11/21-current Acute on chronic resp failure Pt was initially admitted for possible COVID but was ruled out and was sent home on increased home oxygen and declined any further therapy/needs. Pt then returned to [facility] on 04/29/21 for worsening edema and weakness in bilat LE, unable to ambulate at home. Pt was discharged to [facility] on 05/05/21. Pt returned to [facility] from [place] on 05/11/21 for worsening SOB on 6L. Pt's plan is to return to [place] at discharge. CM to follow for any further discharge planning/needs. Truman PENNINGTON CM
--- NOTE | 2021-05-12 15:55 | PCM.PN.HOSP ---
Subjective Subjective Patient was seen and examined. Remains on BiPAP. Denies any worsening shortness of breath. She drops her oxygen levels when off BiPAP. COVID-19 PCR is negative. Objective Data Objective Data Vital Signs: Vital Signs Temp Pulse Resp BP Pulse Ox 97.1 F L 80 22 H 141/88 H 91 05/12/21 10:00 05/12/21 15:28 05/12/21 15:28 05/12/21 13:04 05/12/21 15:28 Oxygen Flow Rate (L/min) 10 Oxygen Delivery Method Nasal Cannula Weight: 168 kg Body Mass Index (BMI) 58.0 Intake & Output: Intake and Output for Last 24 Hours 05/10/21 05/11/21 05/12/21 23:59 23:59 23:59 Intake Total 220 / 220 Output Total 1950 / 1950 Balance -1730 / -1730 Lab / Micro Data Result Diagrams: 05/12/21 06:32 05/12/21 06:32 Labs: Laboratory Results - last 24 hr 05/11/21 16:02: WBC 8.2, RBC 3.42 L, Hgb 10.2 L, Hct 35.8 L, MCV 104.7 H, MCH 29.8, MCHC 28.5 L, RDW Std Deviation 56.8 H, RDW Coeff of Angelika 14.8 H, Plt Count 212, MPV 10.6, Immature Gran % (Auto) 0.400, Neut % (Auto) 83.5 H, Lymph % (Auto) 9.1 L, [place] % (Auto) 6.2, Eos % (Auto) 0.4, Baso % (Auto) 0.4, Absolute Neuts (auto) 6.9, Absolute Lymphs (auto) 0.75 L, Nucleated RBC % 0 05/11/21 16:02: PT 21.0 H, INR 1.9 05/11/21 16:02: Sodium 138, Potassium 5.2 H, Chloride 102, Carbon Dioxide 35.0 H, Anion Gap 1 L, BUN 95 H, Creatinine 2.86 H, Estim Creat Clear Calc 18.31, Est GFR (MDRD) Af Amer 21 L, Est GFR (MDRD) Non-Af 17 L, BUN/Creatinine Ratio 33.2 H, Glucose 168 H, Calcium 9.0, Troponin I High Sens 21 05/11/21 16:02: B-Natriuretic Peptide 312.1 H 05/11/21 16:02: C-React Prot Ext Range 19.20 H, Rheumatoid Factor < 10.0 05/11/21 20:15: Urine Color Yellow, Urine Clarity Cloudy, Urine pH 5.0, Ur Specific [place] 1.015, Urine Protein 30 H, Urine Glucose (UA) Normal, Urine Ketones Negative, Urine Occult Blood 50 H, Urine Nitrite Negative, Urine Bilirubin Negative, Urine Urobilinogen Normal, Ur Leukocyte Esterase 500 H, Urine RBC 0-5 SEEN, Urine WBC 10-25 SEEN, Ur Squamous Epith Cells 0-5 SEEN, Urine Bacteria 2+, Hyaline Casts 0-5 SEEN, Urine Mucus 0 SEEN 05/11/21 22:00: ESR 57 H 05/12/21 00:05: POC Glucose 142 H 05/12/21 04:33: COVID-19 (АНДРЕЙ) Not Detected 05/12/21 06:32: WBC 6.4, RBC 3.14 L, Hgb 9.3 L, Hct 32.7 L, MCV 104.1 H, MCH 29.6, MCHC 28.4 L, RDW Std Deviation 56.4 H, RDW Coeff of Angelika 14.7 H, Plt Count 200, MPV 10.6, Immature Gran % (Auto) 0.300, Neut % (Auto) 74.4 H, Lymph % (Auto) 14.6 L, [place] % (Auto) 8.5, Eos % (Auto) 1.7, Baso % (Auto) 0.5, Absolute Neuts (auto) 4.7, Absolute Lymphs (auto) 0.93, Nucleated RBC % 0 05/12/21 06:32: Sodium 142, Potassium 4.5, Chloride 104, Carbon Dioxide 34.0 H, Anion Gap 4 L, BUN 91 H, Creatinine 2.80 H, Estim Creat Clear Calc 18.70, Est GFR (MDRD) Af Amer 22 L, Est GFR (MDRD) Non-Af 18 L, BUN/Creatinine Ratio 32.5 H, Glucose 107 H, Calcium 8.9, Total Bilirubin 0.60, AST 11 L, ALT 12 L, Alkaline Phosphatase 53, Total Protein 7.4, Albumin 2.5 L, Globulin 4.9 H, Albumin/Globulin Ratio 0.5 L 05/12/21 06:34: POC Glucose 116 H 05/12/21 12:09: POC Glucose 102 Micro: Microbiology 05/11/21 15:37 Nasal Secretion SARS-CoV-2 Antigen (Rapid) - Final ABG Data ABG results: ABG 05/11/21 19:36 Specimen Type ART Sample Site L Radial pH 7.21 L Bicarbonate Actual 33.0 H Total CO2 36 Base Excess 5 H O2 Saturation 93 L O2 % 100 ABG pCO2 83.2 H* ABG pO2 85 Saroj Test Positive Respiration Rate 16 O2 Delivery Device BiPAP Tidal Volume 375 Crit Call To/Read Back Yes Blood Gas Notified Whom carlos alberto Clinical Comments AVAPS epap Radiography Diagnostic Testing: Radiology Impression Chest X-Ray 05/11/21 16:16 IMPRESSION: Progression of interstitial and airspace opacifications of both lung jose when compared to the previous study. Follow-up recommended to ensure resolution Electronically Signed: Bong Lamar MD at 16:44 EDT , Service support , Chest CT 05/11/21 20:52 IMPRESSION: Findings consistent with pulmonary edema with large bilateral effusions and consolidation of the lower lobes possibly in association with underlying Covid 19 pneumonia Electronically Signed: Claude Davis MD at 22:24 EDT , Service support , Rhythm Strip Rhythm Strip: A-fib Rate: 95 Ectopy: PVC(s) Physical Exam Narrative General. Morbidly obese, pale, in mild respiratory distress on BiPAP. HEENT. Oral mucosa dry. Neck neck is supple. Heart. Heart sounds are distant. No murmurs heard. Lungs. Diminished breath sounds in the right hemithorax. Clear anteriorly on the left. Abdomen. Obese and moves with respiration. Assessment & Plan Assessment/Plan (1) Acute and chronic respiratory failure with hypoxia: (2) Interstitial pneumonia: (3) Paroxysmal A-fib: (4) Diabetic neuropathy associated with type 2 diabetes mellitus: QUALIFIERS: Diabetes mellitus complication detail: diabetic polyneuropathy Qualified Code(s): E11.42 - Type 2 diabetes mellitus with diabetic polyneuropathy (5) DM type 2 (diabetes mellitus, type 2): QUALIFIERS: Diabetes mellitus alf insulin use: with alf use Diabetes mellitus complication status: with kidney complications Diabetes mellitus complication detail: with nephropathy Qualified Code(s): E11.21 - Type 2 diabetes mellitus with diabetic nephropathy; 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 Acute on chronic combined respiratory failure secondary to acute exacerbation of heart failure preserved EF, EF 55 to 60% Patient with underlying worsening cor pulmonale, noncompliance with BiPAP, currently on BiPAP, Continue on Lasix, breathing treatment, Water Supervisor following 2. Type II DM, fairly controlled, continue on insulin sliding scale as well as home Lantus 3. Morbid obesity, BMI is 58.0, complicates care and prognosis 4. CKD stage IV, creatinine remains at baseline, continue to monitor on IV Lasix, repeat blood work in am Charges/Coding Visit Charges Inpatient E&M: 61078 Subs Hosp L3
--- NOTE | 2021-05-12 16:10 | CASEMGMT ---
Patient is from [place]. 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 She will need a COVID test within 72 hours of discharge. Green sheet on the chart. Plan: d/c back to [facility] under intermediate level of care. Britni Arias PIPE COVERING MOLDER LUANNE
[2021-05-12 16:20] LABS: Bedside Glucose 110 mg/dL (70-110)
[2021-05-12 18:26] LABS: International Normalized Ratio 2.2; Prothrombin Time (Protime)PT. 23.7 SECONDS (11.7-14.9)
[2021-05-12] MEDS: Atorvastatin Calcium 10 MG Tablet PO (21:45)
[2021-05-12] MEDS: Nystatin Powder 15gm Bottle 1 APPLIC TOPICAL (21:49)
[2021-05-12] MEDS: 0.9% Saline Lock 10 ML Syringe IV (21:50)
[2021-05-12] MEDS: Ipratropium/Albuterol Sulfate 3 ML AMPUL.NEB INHALATION (22:09)
[2021-05-12 22:26] LABS: Bedside Glucose 95 mg/dL (70-110)
[2021-05-13] VITALS (19 sets, daily range): BP systolic 114–138; BP diastolic 62–104; PULSE 66–99; RESP 14–24; TEMP 36.6–37.2; O2SAT 88–95
[2021-05-13 07:06] LABS: Bedside Glucose 118 mg/dL (70-110)
[2021-05-13] MEDS: Ipratropium/Albuterol Sulfate 3 ML AMPUL.NEB INHALATION ×5 (07:10→23:22)
[2021-05-13 07:15] LABS: Basophil# 0.04 X10^3/uL; Basophil% 0.6 % (0-1); Eosinophil# 0.13 X10^3/uL; Eosinophils% 1.8 % (0-5); Hematocrit 32.2 % (37-47); Hemoglobin 9.3 g/dL (12.0-15.0); Lymphocyte % 19.6 % (19-41); Mean Corp Hgb Conc 28.9 g/dL (32-36); Mean Corpuscular Hgb 29.3 pg (27.0-32.0); Mean Corpuscular Volume 101.6 fL (81-99); Mean Platelet Vol. 10.8 fl (6.2-12.0); Monocyte# 0.56 X10^3/uL; Monocyte% 7.8 % (0-10); NRBC Flagged by Analyzer 0 % (0-5); Neutrophil # 5.01 X10^3/uL (2.7-7.7); Neutrophil % 70.1 % (47-70); Platelet Count 199 K/mm3 (150-450); RBC Distribution Width CV 14.8 % (11.6-14.6); RBC Distribution Width SD 55.6 fl (35.1-43.9); Red Blood Count 3.17 M/mm3 (4.2-5.4); White Blood Count 7.2 K/mm3 (4.4-11.0)
[2021-05-13 07:25] LABS: International Normalized Ratio 2.4; Prothrombin Time (Protime)PT. 25.6 SECONDS (11.7-14.9)
[2021-05-13 07:49] LABS: ALB/GLOB Ratio 0.5 RATIO (0.9-2.4); AST(SGOT) 13 U/L (15-37); Alanine Aminotransfer ALT/SGPT 13 U/L (13-56); Albumin, Serum 2.5 g/dL (3.2-5.0); Alkaline Phosphatase 55 U/L (45-117); Anion Gap 4 (5-15); BUN 88 mg/dL (7-18); BUN/Creat Ratio 34.5 RATIO (10-20); Calcium,Total 8.8 mg/dL (8.5-10.1); Chloride 103 mmol/L (98-107); Creatinine, Serum 2.55 mg/dL (0.55-1.02); EST Glomerular Filtration Rate 20 mL/min (>60); Est Glom Filt Rate - Afr Amer 24 mL/min (>60); Estimated Creatinine Clearance 20.53 ml/min; Globulin 4.8 g/dL (2.2-4.2); Glucose 116 mg/dL (74-106); Potassium 4.1 mmol/L (3.5-5.1); Protein, Total 7.3 g/dL (6.4-8.2); Sodium Level 141 mmol/L (136-145)
[2021-05-13] MEDS: Gabapentin 600 MG Tablet PO ×3 (09:06→16:16)
[2021-05-13] MEDS: Nystatin Powder 15gm Bottle 1 APPLIC TOPICAL ×2 (10:55→21:29)
[2021-05-13] MEDS: Metoprolol Tartrate 25 MG Tablet PO ×2 (10:55→21:14)
[2021-05-13] MEDS: LINAGLIPTIN 5 MG TABLET PO (10:56)
[2021-05-13] MEDS: amLODIPine 5 MG Tablet PO (10:56)
[2021-05-13] MEDS: Furosemide 40 MG/4 ML Vial IV ×3 (10:56→21:14)
[2021-05-13] MEDS: Sertraline 50 MG Tablet PO (10:56)
--- NOTE | 2021-05-13 12:09 | PN.CC_ITS ---
Assessment & Plan Assessment/Plan (1) Acute and chronic respiratory failure with hypoxia: (2) Acute respiratory failure with hypoxia and hypercarbia: (3) CKD stage 4 due to type 2 diabetes mellitus: (4) Debility: (5) DIEGO (obstructive sleep apnea): (6) Cor pulmonale: (7) Paroxysmal A-fib: PLAN: RECOMMENDATIONS: 1. Continue current diuresis with goal of -1 to 2 L/day 2. Continue AVAPS for now, but reinitiate baseline BiPAP (10/08) therapy with sleep in the future 3. Walking oximetry prior to discharge 4. Monitor potassium for potential repletion 5. Goring Cutter evaluation IMPRESSIONS: 1. Acute on chronic hypoxic respiratory insufficiency secondary to probable cor pulmonale Clinical suspicion for slow progression to cor pulmonale secondary to noncompliance with DIEGO and low-salt therapy. Long discussion with the patient that noncompliance of BiPAP therapy could be leading to nocturnal hypoxia, therefore increasing pulmonary artery pressures. Patient with significant RV dysfunction, improvement in renal function with diuresis and poor compliance with DIEGO therapy show cor pulmonale as a likely etiology. Agree with current Lasix schedule. Goal is -1 to 2 L/day. Low clinical suspicion for infectious etiology. Rosales discussion with the patient that compliance with BiPAP will be necessary to avoid repeat hospitalization and degradation following discharge. Patient appears to be contemplative at this time. 2. Hyperkalemia in setting of CKD stage IV secondary to DMII Resolved. Clinical suspicion for progression of kidney disease secondary to prerenal etiology secondary to poor mechanics with volume overload. Will monitor creatinine as patient receives diuresis. Diuresis may lead to better Starling forces and better cardiac output. Patient is on telemetry. Hypokalemia likely secondary to diuretic therapy. Improvement in renal function following diuresis suggestive of improved Starling forces. 3. Diabetes mellitus type 2/hypertension/paroxysmal A. fib/morbid obesity/poor follow-up/mural thrombus Complicates care, management, recovery and prognosis. Do not believe patient requires any steroids for underlying pulmonary disorder. This would exacerbate diabetes management. Patient is rate controlled. Daily INRs. INR is almost therapeutic at this time. Subjective Subjective Patient did well overnight. Patient subjectively feels unchanged compared to previous. Patient has not really tolerated breaks from BiPAP therapy. Objective Data Objective Data Vital Signs: Vital Signs Temp Pulse Resp BP Pulse Ox 37.0 C 89 22 H 130/62 H 91 05/13/21 09:25 05/13/21 11:13 05/13/21 11:13 05/13/21 10:55 05/13/21 11:13 Oxygen Flow Rate (L/min) 10 Oxygen Delivery Method Bi-pap Weight: 168 kg Body Mass Index (BMI) 58.0 Intake & Output: Intake and Output for Last 24 Hours 05/11/21 05/12/21 05/13/21 23:59 23:59 23:59 Intake Total 220 / 220 Output Total 2975 / 2975 Balance -2755 / -2755 Lab / Micro Data Result Diagrams: 05/13/21 06:42 05/13/21 06:42 Labs: Laboratory Results - last 24 hr 05/12/21 12:09: POC Glucose 102 05/12/21 16:11: POC Glucose 110 05/12/21 18:06: PT 23.7 H, INR 2.2 05/12/21 21:41: POC Glucose 95 05/13/21 06:42: WBC 7.2, RBC 3.17 L, Hgb 9.3 L, Hct 32.2 L, MCV 101.6 H, MCH 29.3, MCHC 28.9 L, RDW Std Deviation 55.6 H, RDW Coeff of Angelika 14.8 H, Plt Count 199, MPV 10.8, Immature Gran % (Auto) 0.100, Neut % (Auto) 70.1 H, Lymph % (Auto) 19.6, [place] % (Auto) 7.8, Eos % (Auto) 1.8, Baso % (Auto) 0.6, Absolute Neuts (auto) 5.0, Absolute Lymphs (auto) 1.40, Nucleated RBC % 0 05/13/21 06:42: PT 25.6 H, INR 2.4 05/13/21 06:42: Sodium 141, Potassium 4.1, Chloride 103, Carbon Dioxide 34.0 H, Anion Gap 4 L, BUN 88 H, Creatinine 2.55 H, Estim Creat Clear Calc 20.53, Est GFR (MDRD) Af Amer 24 L, Est GFR (MDRD) Non-Af 20 L, BUN/Creatinine Ratio 34.5 H , Glucose 116 H, Calcium 8.8, Total Bilirubin 0.80, AST 13 L, ALT 13, Alkaline Phosphatase 55, Total Protein 7.3, Albumin 2.5 L, Globulin 4.8 H, Albumin/Globulin Ratio 0.5 L 05/13/21 06:53: POC Glucose 118 H Micro: Microbiology 05/11/21 15:37 Nasal Secretion SARS-CoV-2 Antigen (Rapid) - Final Rhythm Strip Rhythm Strip: A-fib Rate: 95 Ectopy: PVC(s) Physical Exam Const alert and oriented x3 General Appearance: cooperative and on BiPAP Nutritional Appearance: morbidly obese HEENT normocephalic and head/scalp atraumatic HEENT Narrative: Large neck circumference Mouth: dry mucous membranes Neck supple General: trachea midline Resp Effort and Inspection: symmetric chest movement; Negative for able to speak in complete sentences Auscultation: diminished lung sounds diffuse Cardio S1 normal heart sound and S2 normal heart sound Cardio Narrative: Atrial flutter, rate controlled Rate: tachycardic Rhythm: abnormal rhythm GI normal to inspection, nondistended, normoactive bowel sounds Extremity Extremity Narrative: Lower extremity edema. Moves all extremities Skin no rashes or lesions noted Neuro moves all extremities and no focal motor deficits Psych Activity / Motor Behavior: restless Mood & Affect: anxious, tearful and fearful Attention / Concentration: attention grossly intact Charges/Coding Visit Charges Inpatient E&M: 48903 Subs Hosp L3
[2021-05-13 13:31] LABS: Bedside Glucose 141 mg/dL (70-110)
[2021-05-13] MEDS: 0.9% Saline Lock 10 ML Syringe IV ×3 (14:46→21:23)
--- NOTE | 2021-05-13 15:53 | PCM.PN.HOSP ---
Subjective Subjective Patient was seen and examined. She remained mostly on BiPAP. She has been diuresing. Objective Data Objective Data Vital Signs: Vital Signs Temp Pulse Resp BP Pulse Ox 98.4 F 67 18 136/90 H 91 05/13/21 13:04 05/13/21 15:00 05/13/21 13:04 05/13/21 13:04 05/13/21 13:04 Oxygen Flow Rate (L/min) 10 Oxygen Delivery Method Bi-pap Weight: 168 kg Body Mass Index (BMI) 58.0 Intake & Output: Intake and Output for Last 24 Hours 05/11/21 05/12/21 05/13/21 23:59 23:59 23:59 Intake Total 220 / 220 100 / 100 Output Total 2975 / 2975 650 / 650 Balance -2755 / -2755 -550 / -550 Lab / Micro Data Result Diagrams: 05/13/21 06:42 05/13/21 06:42 Labs: Laboratory Results - last 24 hr 05/12/21 16:11: POC Glucose 110 05/12/21 18:06: PT 23.7 H, INR 2.2 05/12/21 21:41: POC Glucose 95 05/13/21 06:42: WBC 7.2, RBC 3.17 L, Hgb 9.3 L, Hct 32.2 L, MCV 101.6 H, MCH 29.3, MCHC 28.9 L, RDW Std Deviation 55.6 H, RDW Coeff of Angelika 14.8 H, Plt Count 199, MPV 10.8, Immature Gran % (Auto) 0.100, Neut % (Auto) 70.1 H, Lymph % (Auto) 19.6, [place] % (Auto) 7.8, Eos % (Auto) 1.8, Baso % (Auto) 0.6, Absolute Neuts (auto) 5.0, Absolute Lymphs (auto) 1.40, Nucleated RBC % 0 05/13/21 06:42: PT 25.6 H, INR 2.4 05/13/21 06:42: Sodium 141, Potassium 4.1, Chloride 103, Carbon Dioxide 34.0 H, Anion Gap 4 L, BUN 88 H, Creatinine 2.55 H, Estim Creat Clear Calc 20.53, Est GFR (MDRD) Af Amer 24 L, Est GFR (MDRD) Non-Af 20 L, BUN/Creatinine Ratio 34.5 H, Glucose 116 H, Calcium 8.8, Total Bilirubin 0.80, AST 13 L, ALT 13, Alkaline Phosphatase 55, Total Protein 7.3, Albumin 2.5 L, Globulin 4.8 H, Albumin/Globulin Ratio 0.5 L 05/13/21 06:53: POC Glucose 118 H 05/13/21 12:57: POC Glucose 141 H Micro: Microbiology 05/11/21 15:37 Nasal Secretion SARS-CoV-2 Antigen (Rapid) - Final Rhythm Strip Rhythm Strip: A-fib Rate: 95 Ectopy: PVC(s) Physical Exam Narrative General. Morbidly obese, pale, in mild respiratory distress on BiPAP. HEENT. Oral mucosa dry. Neck neck is supple. Heart. Heart sounds are distant. No murmurs heard. Lungs. Diminished breath sounds in the right hemithorax. Clear anteriorly on the left. Abdomen. Obese and moves with respiration. Assessment & Plan Assessment/Plan (1) Acute and chronic respiratory failure with hypoxia: (2) Interstitial pneumonia: (3) Paroxysmal A-fib: (4) Diabetic neuropathy associated with type 2 diabetes mellitus: QUALIFIERS: Diabetes mellitus complication detail: diabetic polyneuropathy Qualified Code(s): E11.42 - Type 2 diabetes mellitus with diabetic polyneuropathy (5) DM type 2 (diabetes mellitus, type 2): QUALIFIERS: Diabetes mellitus termite exterminator helper insulin use: with custodial use Diabetes mellitus complication status: with kidney complications Diabetes mellitus complication detail: with nephropathy Qualified Code(s): E11.21 - Type 2 diabetes mellitus with diabetic nephropathy; Z79.4 - termite exterminator helper (current) use of insulin (6) CKD stage 4 due to type 2 diabetes mellitus: PLAN: 1. Acute on chronic combined respiratory failure secondary to acute exacerbation of heart failure preserved EF, EF 55 to 60% Patient with underlying worsening cor pulmonale, noncompliance with BiPAP, currently on BiPAP, Will increase Lasix to every 8h, continue breathing treatmentss, Excellence Consultant following 2. Type II DM, fairly controlled, continue on insulin sliding scale as well as home Lantus 3. Morbid obesity, BMI is 58.0, complicates care and prognosis 4. CKD stage IV, creatinine remains at baseline, continue to monitor on IV Lasix, repeat blood work in am Charges/Coding Visit Charges Inpatient E&M: 94855 Subs Hosp L2
[2021-05-13 16:26] LABS: Bedside Glucose 149 mg/dL (70-110)
[2021-05-13] MEDS: Ondansetron 4 MG/2 ML Vial IV (18:42)
[2021-05-13] MEDS: Atorvastatin Calcium 10 MG Tablet PO (21:15)
[2021-05-13] MEDS: Insulin Lispro 100 UNIT/ML INSULN.PEN SC (21:17)
[2021-05-13 22:05] LABS: Bedside Glucose 162 mg/dL (70-110)
[2021-05-14] VITALS (23 sets, daily range): BP systolic 89–155; BP diastolic 58–79; PULSE 69–91; RESP 14–25; TEMP 36.4–37.6; O2SAT 90–93
[2021-05-14] MEDS: Furosemide 40 MG/4 ML Vial IV ×2 (06:22→13:19)
[2021-05-14] MEDS: 0.9% Saline Lock 10 ML Syringe IV (06:23)
[2021-05-14 06:44] LABS: Absolute Lymphocyte Count 1.22 X10^3/uL (0.83-4.51); Absolute Neutrophil Count 4.3 X10^3/uL (2.0-7.7); Basophil# 0.03 X10^3/uL; Basophil% 0.5 % (0-1); Eosinophil# 0.12 X10^3/uL; Eosinophils% 1.9 % (0-5); Hematocrit 31.8 % (37-47); Hemoglobin 9.2 g/dL (12.0-15.0); Lymphocyte # 1.22 X10^3/ul (0.83-4.51); Lymphocyte % 19.5 % (19-41); Mean Corp Hgb Conc 28.9 g/dL (32-36); Mean Corpuscular Hgb 29.7 pg (27.0-32.0); Mean Corpuscular Volume 102.6 fL (81-99); Mean Platelet Vol. 10.7 fl (6.2-12.0); Monocyte# 0.56 X10^3/uL; Monocyte% 8.9 % (0-10); NRBC Flagged by Analyzer 0 % (0-5); Neutrophil # 4.32 X10^3/uL (2.7-7.7); Neutrophil % 68.9 % (47-70); Platelet Count 190 K/mm3 (150-450); RBC Distribution Width CV 14.8 % (11.6-14.6); RBC Distribution Width SD 55.7 fl (35.1-43.9); White Blood Count 6.3 K/mm3 (4.4-11.0)
[2021-05-14 06:51] LABS: Bedside Glucose 135 mg/dL (70-110)
[2021-05-14 07:01] LABS: International Normalized Ratio 2.9; Prothrombin Time (Protime)PT. 29.8 SECONDS (11.7-14.9)
[2021-05-14 07:03] LABS: ALB/GLOB Ratio 0.5 RATIO (0.9-2.4); AST(SGOT) 13 U/L (15-37); Alanine Aminotransfer ALT/SGPT 11 U/L (13-56); Albumin, Serum 2.4 g/dL (3.2-5.0); Alkaline Phosphatase 54 U/L (45-117); Anion Gap 2 (5-15); BUN 87 mg/dL (7-18); Calcium,Total 8.4 mg/dL (8.5-10.1); Chloride 103 mmol/L (98-107); Creatinine, Serum 2.56 mg/dL (0.55-1.02); EST Glomerular Filtration Rate 20 mL/min (>60); Est Glom Filt Rate - Afr Amer 24 mL/min (>60); Estimated Creatinine Clearance 20.45 ml/min; Globulin 4.8 g/dL (2.2-4.2); Glucose 138 mg/dL (74-106); Potassium 3.9 mmol/L (3.5-5.1); Protein, Total 7.2 g/dL (6.4-8.2); Sodium Level 141 mmol/L (136-145)
[2021-05-14] MEDS: Ipratropium/Albuterol Sulfate 3 ML AMPUL.NEB INHALATION ×4 (07:19→19:26)
--- NOTE | 2021-05-14 09:55 | PCM.PN.INT ---
Assessment & Plan Assessment/Plan (1) Acute and chronic respiratory failure with hypoxia: (2) Acute respiratory failure with hypoxia and hypercarbia: (3) CKD stage 4 due to type 2 diabetes mellitus: (4) Debility: (5) DIEGO (obstructive sleep apnea): (6) Cor pulmonale: (7) Paroxysmal A-fib: PLAN: RECOMMENDATIONS: 1. Continue current diuresis with goal of -1 to 2 L/day 2. Likely okay to reinitiate baseline BiPAP (10/08) therapy with sleep instead of AVAPS 3. Walking oximetry prior to discharge 4. Monitor potassium for potential repletion 5. BiPAP breaks to Airvo as tolerated IMPRESSIONS: 1. Acute on chronic hypoxic respiratory insufficiency secondary to probable cor pulmonale Clinical suspicion for slow progression to cor pulmonale secondary to noncompliance with DIEGO and low-salt therapy. Long discussion with the patient that noncompliance of BiPAP therapy could be leading to nocturnal hypoxia, therefore increasing pulmonary artery pressures. Patient with significant RV dysfunction, improvement in renal function with diuresis and poor compliance with DIEGO therapy show cor pulmonale as a likely etiology. Agree with current Lasix schedule. Goal is -1 to 2 L/day. Low clinical suspicion for infectious etiology. [place] discussion with the patient that compliance with BiPAP will be necessary to avoid repeat hospitalization and degradation following discharge. No need for change in regimen. Do anticipate given significant weight gain that this will take several days to correct. 2. CKD stage IV secondary to DMII Resolved. Clinical suspicion for progression of kidney disease secondary to prerenal etiology secondary to poor mechanics with volume overload. Will monitor creatinine as patient receives diuresis. Diuresis may lead to better Starling forces and better cardiac output. Patient is on telemetry. Hypokalemia likely secondary to diuretic therapy. Improvement in renal function following diuresis suggestive of improved Starling forces. 3. Diabetes mellitus type 2/hypertension/paroxysmal A. fib/morbid obesity/poor follow-up/mural thrombus Complicates care, management, recovery and prognosis. Do not believe patient requires any steroids for underlying pulmonary disorder. This would exacerbate diabetes management. Patient is rate controlled. Daily INRs. INR is therapeutic at this time. Subjective Subjective Patient slowly improving with the current regimen. Patient was able to be on Airvo for a little bit of time yesterday. Patient overall feels subjectively improved. Patient denies any chest pain or epistaxis. Objective Data Objective Data Vital Signs: Vital Signs Temp Pulse Resp BP Pulse Ox 36.4 C L 74 18 112/68 90 05/14/21 06:00 05/14/21 07:19 05/14/21 07:19 05/14/21 06:00 05/14/21 07:19 Oxygen Flow Rate (L/min) 15 Oxygen Delivery Method Bi-pap Weight: 168 kg Body Mass Index (BMI) 58.0 Intake & Output: Intake and Output for Last 24 Hours 05/12/21 05/13/21 05/14/21 23:59 23:59 23:59 Intake Total 220 / 220 500 / 500 Output Total 2975 / 2975 1650 / 1650 300 / 300 Balance -2755 / -2755 -1150 / -1150 -300 / -300 Lab / Micro Data Result Diagrams: 05/14/21 05:44 05/14/21 05:44 Labs: Laboratory Results - last 24 hr 05/13/21 12:57: POC Glucose 141 H 05/13/21 16:13: POC Glucose 149 H 05/13/21 21:10: POC Glucose 162 H 05/14/21 05:44: WBC 6.3, RBC 3.10 L, Hgb 9.2 L, Hct 31.8 L, MCV 102.6 H, MCH 29.7, MCHC 28.9 L, RDW Std Deviation 55.7 H, RDW Coeff of Angelika 14.8 H, Plt Count 190, MPV 10.7, Immature Gran % (Auto) 0.300, Neut % (Auto) 68.9, Lymph % (Auto) 19.5, [place] % (Auto) 8.9, Eos % (Auto) 1.9, Baso % (Auto) 0.5, Absolute Neuts (auto) 4.3, Absolute Lymphs (auto) 1.22, Nucleated RBC % 0 05/14/21 05:44: PT 29.8 H, INR 2.9 05/14/21 05:44: Sodium 141, Potassium 3.9, Chloride 103, Carbon Dioxide 36.0 H, Anion Gap 2 L, BUN 87 H, Creatinine 2.56 H, Estim Creat Clear Calc 20.45, Est GFR (MDRD) Af Amer 24 L, Est GFR (MDRD) Non-Af 20 L, BUN/Creatinine Ratio 34.0 H, Glucose 138 H, Calcium 8.4 L, Total Bilirubin 0.70, AST 13 L, ALT 11 L, Alkaline Phosphatase 54, Total Protein 7.2, Albumin 2.4 L, Globulin 4.8 H, Albumin/Globulin Ratio 0.5 L 05/14/21 06:20: POC Glucose 135 H Micro: Microbiology 05/11/21 15:37 Nasal Secretion SARS-CoV-2 Antigen (Rapid) - Final Rhythm Strip Rhythm Strip: A-fib Rate: 95 Ectopy: PVC(s) Physical Exam Const alert and oriented x3 General Appearance: cooperative and on BiPAP Nutritional Appearance: morbidly obese HEENT normocephalic and head/scalp atraumatic HEENT Narrative: Large neck circumference Mouth: dry mucous membranes Neck supple General: trachea midline Resp Effort and Inspection: symmetric chest movement; Negative for able to speak in complete sentences Auscultation: diminished lung sounds diffuse Cardio S1 normal heart sound and S2 normal heart sound Cardio Narrative: Atrial flutter, rate controlled Rate: tachycardic Rhythm: abnormal rhythm GI normal to inspection, nondistended, normoactive bowel sounds Extremity Extremity Narrative: Lower extremity edema. Moves all extremities Skin no rashes or lesions noted Neuro moves all extremities and no focal motor deficits Psych Activity / Motor Behavior: restless Mood & Affect: anxious, tearful and fearful Attention / Concentration: attention grossly intact Charges/Coding Visit Charges Inpatient E&M: 06628 Subs Hosp L3
[2021-05-14] MEDS: amLODIPine 5 MG Tablet PO (11:07)
[2021-05-14] MEDS: Sertraline 50 MG Tablet PO (11:07)
[2021-05-14] MEDS: LINAGLIPTIN 5 MG TABLET PO (11:07)
[2021-05-14] MEDS: Gabapentin 600 MG Tablet PO ×2 (11:07→16:36)
[2021-05-14] MEDS: Metoprolol Tartrate 25 MG Tablet PO ×2 (11:07→20:21)
--- NOTE | 2021-05-14 11:50 | CPS ---
Pt was just placed back on Bipap per nursing. Pt santiago well. Aerosol rx given in line.
[2021-05-14] MEDS: Nystatin Powder 15gm Bottle 1 APPLIC TOPICAL ×2 (13:19→20:20)
[2021-05-14 13:41] LABS: Bedside Glucose 123 mg/dL (70-110)
--- NOTE | 2021-05-14 14:21 | PCM.PN.HOSP ---
Subjective Subjective Patient was seen and examined. She has remained on BiPAP the whole day. Her sats dropped into the 70s when she goes off it. She has not diuresed much on Lasix 40 mg every 8h Objective Data Objective Data Vital Signs: Vital Signs Temp Pulse Resp BP Pulse Ox 97.5 F L 91 24 H 112/68 92 05/14/21 06:00 05/14/21 11:26 05/14/21 11:26 05/14/21 06:00 05/14/21 11:26 Oxygen Flow Rate (L/min) 15 Oxygen Delivery Method Bi-pap Weight: 168 kg Body Mass Index (BMI) 58.0 Intake & Output: Intake and Output for Last 24 Hours 05/12/21 05/13/21 05/14/21 23:59 23:59 23:59 Intake Total 220 / 220 500 / 500 Output Total 2975 / 2975 1650 / 1650 300 / 300 Balance -2755 / -2755 -1150 / -1150 -300 / -300 Lab / Micro Data Result Diagrams: 05/14/21 05:44 05/14/21 05:44 Labs: Laboratory Results - last 24 hr 05/13/21 16:13: POC Glucose 149 H 05/13/21 21:10: POC Glucose 162 H 05/14/21 05:44: WBC 6.3, RBC 3.10 L, Hgb 9.2 L, Hct 31.8 L, MCV 102.6 H, MCH 29.7, MCHC 28.9 L, RDW Std Deviation 55.7 H, RDW Coeff of Angelika 14.8 H, Plt Count 190, MPV 10.7, Immature Gran % (Auto) 0.300, Neut % (Auto) 68.9, Lymph % (Auto) 19.5, [place] % (Auto) 8.9, Eos % (Auto) 1.9, Baso % (Auto) 0.5, Absolute Neuts (auto) 4.3, Absolute Lymphs (auto) 1.22, Nucleated RBC % 0 05/14/21 05:44: PT 29.8 H, INR 2.9 05/14/21 05:44: Sodium 141, Potassium 3.9, Chloride 103, Carbon Dioxide 36.0 H, Anion Gap 2 L, BUN 87 H, Creatinine 2.56 H, Estim Creat Clear Calc 20.45, Est GFR (MDRD) Af Amer 24 L, Est GFR (MDRD) Non-Af 20 L, BUN/Creatinine Ratio 34.0 H, Glucose 138 H, Calcium 8.4 L, Total Bilirubin 0.70, AST 13 L, ALT 11 L, Alkaline Phosphatase 54, Total Protein 7.2, Albumin 2.4 L, Globulin 4.8 H, Albumin/Globulin Ratio 0.5 L 05/14/21 06:20: POC Glucose 135 H 05/14/21 12:35: POC Glucose 123 H Micro: Microbiology 05/11/21 15:37 Nasal Secretion SARS-CoV-2 Antigen (Rapid) - Final Rhythm Strip Rhythm Strip: A-fib Rate: 95 Ectopy: PVC(s) Physical Exam Narrative General. Morbidly obese, pale, in mild respiratory distress on BiPAP. HEENT. Oral mucosa dry. Neck neck is supple. Heart. Heart sounds are distant. No murmurs heard. Lungs. Diminished breath sounds in the right hemithorax. Clear anteriorly on the left. Abdomen. Obese and moves with respiration. Assessment & Plan Assessment/Plan (1) Acute and chronic respiratory failure with hypoxia: (2) Interstitial pneumonia: (3) Paroxysmal A-fib: (4) Diabetic neuropathy associated with type 2 diabetes mellitus: QUALIFIERS: Diabetes mellitus complication detail: diabetic polyneuropathy Qualified Code(s): E11.42 - Type 2 diabetes mellitus with diabetic polyneuropathy (5) DM type 2 (diabetes mellitus, type 2): QUALIFIERS: Diabetes mellitus terminal gauger insulin use: with shelter use Diabetes mellitus complication status: with kidney complications Diabetes mellitus complication detail: with nephropathy Qualified Code(s): E11.21 - Type 2 diabetes mellitus with diabetic nephropathy; Z79.4 - marine oil terminal superintendent (current) use of insulin (6) CKD stage 4 due to type 2 diabetes mellitus: PLAN: 1. Acute on chronic combined respiratory failure secondary to acute exacerbation of heart failure preserved EF, EF 55 to 60% Patient with underlying worsening cor pulmonale, noncompliance with BiPAP, currently on BiPAP, Will switch to Lasix drip, continue breathing treatments, Furniture Upholsterer Apprentice following Discussed with patient that if she does not improve, she should consider hospice; she would discuss with her spouse 2. Type II DM, fairly controlled, continue on insulin sliding scale as well as home Lantus 3. Morbid obesity, BMI is 58.0, complicates care and prognosis 4. CKD stage IV, creatinine remains at baseline, continue to monitor on IV Lasix, repeat blood work in am Charges/Coding Visit Charges Inpatient E&M: 22465 Subs Hosp L3
[2021-05-14 19:50] LABS: Bedside Glucose 147 mg/dL (70-110)
[2021-05-14] MEDS: Furosemide 500 MG in Empty Viaflex 50 mL 1 EACH CONT INF (20:17)
[2021-05-14] MEDS: Atorvastatin Calcium 10 MG Tablet PO (20:21)
[2021-05-14 22:05] LABS: Bedside Glucose 161 mg/dL (70-110)
[2021-05-15] VITALS (30 sets, daily range): BP systolic 89–144; BP diastolic 53–92; PULSE 71–101; RESP 16–28; TEMP 36.3–37.2; O2SAT 88–95
[2021-05-15 06:35] LABS: Bedside Glucose 92 mg/dL (70-110)
[2021-05-15] MEDS: Ipratropium/Albuterol Sulfate 3 ML AMPUL.NEB INHALATION ×5 (07:02→22:20)
[2021-05-15] MEDS: LINAGLIPTIN 5 MG TABLET PO (08:58)
[2021-05-15] MEDS: Gabapentin 600 MG Tablet PO ×3 (08:58→16:38)
[2021-05-15] MEDS: Sertraline 50 MG Tablet PO (08:58)
[2021-05-15] MEDS: Metoprolol Tartrate 25 MG Tablet PO (08:58)
[2021-05-15] MEDS: Nystatin Powder 15gm Bottle 1 APPLIC TOPICAL ×2 (08:59→22:11)
[2021-05-15] MEDS: amLODIPine 5 MG Tablet PO (08:59)
[2021-05-15 09:05] LABS: Absolute Lymphocyte Count 1.23 X10^3/uL (0.83-4.51); Basophil# 0.02 X10^3/uL; Basophil% 0.3 % (0-1); Eosinophil# 0.19 X10^3/uL; Eosinophils% 2.7 % (0-5); Hematocrit 34.4 % (37-47); Hemoglobin 9.6 g/dL (12.0-15.0); Lymphocyte # 1.23 X10^3/ul (0.83-4.51); Lymphocyte % 17.5 % (19-41); Mean Corp Hgb Conc 27.9 g/dL (32-36); Mean Corpuscular Hgb 29.2 pg (27.0-32.0); Mean Corpuscular Volume 104.6 fL (81-99); Mean Platelet Vol. 10.7 fl (6.2-12.0); Monocyte# 0.58 X10^3/uL; Monocyte% 8.3 % (0-10); NRBC Flagged by Analyzer 0 % (0-5); Neutrophil # 4.99 X10^3/uL (2.7-7.7); Neutrophil % 70.9 % (47-70); Platelet Count 182 K/mm3 (150-450); RBC Distribution Width CV 14.7 % (11.6-14.6); Red Blood Count 3.29 M/mm3 (4.2-5.4)
[2021-05-15 09:37] LABS: ALB/GLOB Ratio 0.5 RATIO (0.9-2.4); AST(SGOT) 13 U/L (15-37); Alanine Aminotransfer ALT/SGPT 12 U/L (13-56); Albumin, Serum 2.5 g/dL (3.2-5.0); Alkaline Phosphatase 52 U/L (45-117); Anion Gap 4 (5-15); BUN 81 mg/dL (7-18); BUN/Creat Ratio 32.8 RATIO (10-20); Calcium,Total 8.7 mg/dL (8.5-10.1); Chloride 102 mmol/L (98-107); Creatinine, Serum 2.47 mg/dL (0.55-1.02); EST Glomerular Filtration Rate 21 mL/min (>60); Est Glom Filt Rate - Afr Amer 25 mL/min (>60); Glucose 87 mg/dL (74-106); Potassium 3.5 mmol/L (3.5-5.1); Protein, Total 7.5 g/dL (6.4-8.2); Sodium Level 143 mmol/L (136-145)
[2021-05-15] MEDS: Acetaminophen 500 MG Tablet 1000 MG PO (10:28)
[2021-05-15 11:41] LABS: Bedside Glucose 97 mg/dL (70-110)
--- NOTE | 2021-05-15 12:16 | CASEMGMT ---
Physician said patient would like to do Healthcare POA papers. SW met with patient and her significant other. Introduced self and role at [facility]. Patient confirmed she wanted to do the documents. SW completed documents with patient. Copies were made and given to patient along with originals. SW also placed a copy in her chart. SW also asked patient when she is ready to be discharged is she going back to [place]. Her significant other said he wants to take her home and have an aide come in daily. RN KARLIE was also present and it was explained to him that patient is likely not going to get strong enough to go home. Patient does not want to go back to [place]. SW will give them a list of facilities that are in network with her insurance. Britni STROUD
--- NOTE | 2021-05-15 12:41 | PN.CC_ITS ---
Assessment & Plan Assessment/Plan (1) Acute and chronic respiratory failure with hypoxia: (2) Acute respiratory failure with hypoxia and hypercarbia: (3) DIEGO (obstructive sleep apnea): PLAN: RECOMMENDATIONS: 1. Continue Lasix infusion at increased rate along with scheduled metolazone. 2. If no improvement in oxygenation status in the next 24 hours, consider thoracentesis. 3. In preparation for possible thoracentesis, will discontinue Coumadin and place the patient on heparin infusion. 4. Obtain repeat chest x-ray today. 5. Check daily coags. IMPRESSIONS: 1. Acute on chronic hypoxic respiratory failure secondary to probable cor pulmonale Clinical suspicion for progression to cor pulmonale secondary to noncompliance with DIEGO and low-salt therapy. Long discussion with the patient that noncompliance of BiPAP therapy could be leading to nocturnal hypoxia, therefore increasing pulmonary artery pressures. Despite attempts at diuresis, the patient has been largely dependent on noninvasive positive pressure ventilatory support. Her Lasix infusion rate was increased today and metolazone was added. If no improvement over the next 24 hours, would need to consider thoracentesis. In preparation for possible thoracentesis, the patient's Coumadin will be discontinued and she will be placed on a continuous heparin infusion. Repeat chest x-ray will be obtained. 2. CKD stage IV secondary to DMII Improving. Clinical suspicion for progression of kidney disease secondary to prerenal etiology secondary to poor mechanics with volume overload. Will monitor creatinine as patient receives diuresis. Diuresis may lead to better Starling forces and better cardiac output. 3. Diabetes mellitus type 2/hypertension/paroxysmal A. fib/morbid obesity/poor follow-up/mural thrombus Complicates care, management, recovery and prognosis. Continue home medications as indicated. This note was generated with jobandtal[employer] dictation software. It may contain incorrect words, spelling, and punctuation that were not noted in checking the note before signing. Subjective Subjective The patient was seen and examined at the bedside this morning. Events from the last 24 hours have been reviewed. The patient is currently afebrile, hemodynamically stable and maintaining appropriate oxygen saturations on continuous BiPAP therapy. Attempts to wean the patient from noninvasive positive pressure ventilatory support has proven unsuccessful over the last several days. She is currently documented to be overall net -4.6 L for the hospital admission. The patient remains on a continuous Lasix infusion and was just started on metolazone today. Objective Data Objective Data The patient's most recent lab work, culture data and imaging studies have all been personally reviewed. Surface echocardiogram from March 2021 demonstrated an ejection fraction of 55 to 60%. The RV was noted to be moderately dilated with mild to moderate global RV systolic dysfunction. Vital Signs: Vital Signs Temp Pulse Resp BP Pulse Ox 98.8 F 71 20 H 127/87 H 91 05/15/21 12:00 05/15/21 12:00 05/15/21 12:00 05/15/21 12:00 05/15/21 12:00 Oxygen Flow Rate (L/min) 15 Oxygen Delivery Method Bi-pap Weight: 168 kg Body Mass Index (BMI) 58.0 Intake & Output: Intake and Output for Last 24 Hours 05/13/21 05/14/21 05/15/21 23:59 23:59 23:59 Intake Total 500 / 500 800 / 1200 520 / 520 Output Total 1650 / 1650 750 / 1450 1300 / 1300 Balance -1150 / -1150 50 / -250 -780 / -780 Lab / Micro Data Attestation: I reviewed the patient's lab results. Result Diagrams: 05/16/21 03:12 05/16/21 03:12 Labs: Laboratory Results - last 24 hr 05/14/21 12:35: POC Glucose 123 H 05/14/21 16:33: POC Glucose 147 H 05/14/21 21:52: POC Glucose 161 H 05/15/21 06:24: POC Glucose 92 05/15/21 08:40: WBC 7.0, RBC 3.29 L, Hgb 9.6 L, Hct 34.4 L, MCV 104.6 H, MCH 29.2, MCHC 27.9 L, RDW Std Deviation 57.0 H, RDW Coeff of Angelika 14.7 H, Plt Count 182, MPV 10.7, Immature Gran % (Auto) 0.300, Neut % (Auto) 70.9 H, Lymph % (Aut o) 17.5 L, [place] % (Auto) 8.3, Eos % (Auto) 2.7, Baso % (Auto) 0.3, Absolute Neuts (auto) 5.0, Absolute Lymphs (auto) 1.23, Nucleated RBC % 0 05/15/21 08:40: Sodium 143, Potassium 3.5, Chloride 102, Carbon Dioxide 37.0 H, Anion Gap 4 L, BUN 81 H, Creatinine 2.47 H, Estim Creat Clear Calc 21.20, Est GFR (MDRD) Af Amer 25 L, Est GFR (MDRD) Non-Af 21 L, BUN/Creatinine Ratio 32.8 H , Glucose 87, Calcium 8.7, Total Bilirubin 0.80, AST 13 L, ALT 12 L, Alkaline Ph osphatase 52, Total Protein 7.5, Albumin 2.5 L, Globulin 5.0 H, Albumin/Globulin Ratio 0.5 L 05/15/21 11:07: POC Glucose 97 Micro: Microbiology 05/11/21 15:37 Nasal Secretion SARS-CoV-2 Antigen (Rapid) - Final Rhythm Strip Rhythm Strip: A-fib Rate: 95 Ectopy: PVC(s) Physical Exam Const alert General Appearance: cooperative and on BiPAP Nutritional Appearance: morbidly obese HEENT normocephalic and head/scalp atraumatic Eyes PERRL, EOMs intact bilaterally and conjunctivae normal Neck supple General: trachea midline Resp no use of accessory muscles Auscultation: diminished lung sounds; Negative for rales, rhonchi or wheezes Cardio S1 normal heart sound and S2 normal heart sound Rhythm: abnormal rhythm GI normal to inspection, nondistended, normoactive bowel sounds Extremity General Extremity: edema bilateral lower extremity Skin no rashes or lesions noted Neuro CN's II-XII intact bilaterally and no focal motor deficits Psych Mood & Affect: flat affect Charges/Coding Visit Charges Inpatient E&M: 74440 Subs Hosp L3
--- NOTE | 2021-05-15 12:42 | RAD_ITS ---
STUDY: X-RAY CHEST REASON FOR EXAM: Female, 70 years old. Pleural Effusions TECHNIQUE: AP COMPARISON: 05/11/2021 FINDINGS: EKG leads project over the chest. Lungs continue to be underexpanded. Bilateral, multilobar pulmonary infiltrates redemonstrated with some progression in the left midlung since the prior study. A small right pleural effusion is grossly similar in size. Small left pleural effusion suspected. There is mild cardiac enlargement. Normal mediastinum and ray. Normal visualized pulmonary arteries. Normal visualized aortic arch and descending thoracic aorta. No acute bony process. There is no demonstrated abnormality of the visualized soft tissue structures of the upper abdomen. RAD/Chest 1 View (Portable) IMPRESSION: Mild worsening of multilobar pulmonary interstitial and airspace disease. Small pleural effusion suspected, similar on the right. Electronically Signed: Ga Burkett MD ([place]) at 16:49 EDT , Service support ,
[2021-05-15 13:23] LABS: International Normalized Ratio 3.3
[2021-05-15 13:24] LABS: Partial Thromboplast Time 41.1 Seconds (24.1-36.2)
[2021-05-15] MEDS: HEPARIN/D5w 25,000 UNITS 25,000 UNITS/250 ML IV.SOLN. 20 UNITS IV (13:47)
--- NOTE | 2021-05-15 16:33 | NURSING ---
This RN reviewed SN charting
[2021-05-15 16:45] LABS: Bedside Glucose 83 mg/dL (70-110)
[2021-05-15] MEDS: Furosemide 500 MG in Empty Viaflex 50 mL 1 EACH CONT INF (17:40)
--- NOTE | 2021-05-15 18:24 | PN.HOSP_ITS ---
Subjective Subjective Patient remains on continuous BiPAP. Trial off earlier today per nursing the patient is a not tolerate coming off BiPAP at this time. Discussion had with both she and her significant other. They would like to change her CODE STATUS to full code. She has not been able to eat or come off BiPAP for any significant amount of time since her admission. Objective Data Objective Data Vital Signs: Vital Signs Temp Pulse Resp BP Pulse Ox 98.8 F 96 18 141/92 H 91 05/15/21 17:00 05/15/21 17:20 05/15/21 17:20 05/15/21 17:00 05/15/21 17:20 Oxygen Flow Rate (L/min) 15 Oxygen Delivery Method Bi-pap Weight: 168 kg Body Mass Index (BMI) 58.0 Intake & Output: Intake and Output for Last 24 Hours 05/13/21 05/14/21 05/15/21 23:59 23:59 23:59 Intake Total 500 / 500 800 / 1200 1141.38 / 1141.38 Output Total 1650 / 1650 750 / 1450 2250 / 2250 Balance -1150 / -1150 50 / -250 -1108.62 / -1108.62 Lab / Micro Data Result Diagrams: 05/15/21 08:40 05/15/21 08:40 Labs: Laboratory Results - last 24 hr 05/14/21 16:33: POC Glucose 147 H 05/14/21 21:52: POC Glucose 161 H 05/15/21 06:24: POC Glucose 92 05/15/21 08:40: WBC 7.0, RBC 3.29 L, Hgb 9.6 L, Hct 34.4 L, MCV 104.6 H, MCH 29.2, MCHC 27.9 L, RDW Std Deviation 57.0 H, RDW Coeff of Angelika 14.7 H, Plt Count 182, MPV 10.7, Immature Gran % (Auto) 0.300, Neut % (Auto) 70.9 H, Lymph % (Auto) 17.5 L, [place] % (Auto) 8.3, Eos % (Auto) 2.7, Baso % (Auto) 0.3, Absolute Neuts (auto) 5.0, Absolute Lymphs (auto) 1.23, Nucleated RBC % 0 05/15/21 08:40: Sodium 143, Potassium 3.5, Chloride 102, Carbon Dioxide 37.0 H, Anion Gap 4 L, BUN 81 H, Creatinine 2.47 H, Estim Creat Clear Calc 21.20, Est GFR (MDRD) Af Amer 25 L, Est GFR (MDRD) Non-Af 21 L, BUN/Creatinine Ratio 32.8 H , Glucose 87, Calcium 8.7, Total Bilirubin 0.80, AST 13 L, ALT 12 L, Alkaline Phosphatase 52, Total Protein 7.5, Albumin 2.5 L, Globulin 5.0 H, Albumin/Globulin Ratio 0.5 L 05/15/21 11:07: POC Glucose 97 05/15/21 13:04: PT 33.0 H, INR 3.3, APTT 41.1 H 05/15/21 16:36: POC Glucose 83 Micro: Microbiology 05/11/21 15:37 Nasal Secretion SARS-CoV-2 Antigen (Rapid) - Final Radiography Diagnostic Testing: Radiology Impression Chest X-Ray 05/15/21 12:42 IMPRESSION: Mild worsening of multilobar pulmonary interstitial and airspace disease. Small pleural effusion suspected, similar on the right. Electronically Signed: Ga Burkett MD ([facility]) at 16:49 EDT , Service support , Rhythm Strip Rhythm Strip: A-fib Rate: 95 Ectopy: PVC(s) Physical Exam Const alert, oriented x3 and no apparent distress Constitutional Narrative: Older white female lying in bed fairly flat on continuous BiPAP, significant other is at the bedside, no current distress, able to communicate with BiPAP in place, nontoxic Exam Limitations: no limitations Nutritional Appearance: morbidly obese HEENT head/scalp atraumatic HEENT Narrative: Mallampati 4 Head and Scalp: normocephalic Mouth: dry mucous membranes Eyes PERRL, EOMs intact bilaterally and conjunctivae normal Neck no lymphadenopathy and supple Neck Narrative: Trachea midline, short thick neck Resp normal respiratory effort, no retractions and no use of accessory muscles Resp Narrative: Markedly diminished without any adventitious sounds auscultated--> exam limited secondary to body habitus Auscultation: Negative for crackles, rales, rhonchi or wheezes Cardio regular rate, regular rhythm, S1 normal heart sound, S2 normal heart sound, no murmurs, no rub, no gallops, no clicks and no JVD GI normal to inspection, nondistended, normoactive bowel sounds, soft to palpation, non-tender and non-distended Extremity full ROM Extremity Narrative: Marked anasarca with pitting edema up to abdomen, no cyanosis or clubbing Skin no rashes or lesions noted, skin turgor normal, no jaundice, no petechiae and no mottling Skin Narrative: Pale skin Neuro oriented x3, moves all extremities and no focal motor deficits Neuro Narrative: Speech is normal but a bit difficult to understand because she is on BiPAP Sensorium / Orientation: awake and alert Speech: speech normal Psych affect normal Psych Narrative: Tearful at time when we discuss CODE STATUS and prognosis Assessment & Plan Assessment/Plan (1) Acute and chronic respiratory failure with hypoxia: (2) Anasarca: (3) Chronic anemia: (4) CKD (chronic kidney disease) stage 3, GFR 30-59 ml/min: PLAN: Acute on chronic hypoxic respiratory failure secondary to suspected cor pulmonale -Patient with noncompliance for DIEGO and salt restricted diet -Patient and family appear to be in denial -Patient has remained on a Lasix drip but despite this she remains volume overloaded -Increase Lasix drip to 15 mg/h -Add low-dose metolazone -Patient seems to be developing some contraction alkalosis -Echocardiogram on 03/31/2021 shows an EF of 55 to 60% a dilated RV, a dilated IVC and hepatic veins and a moderate sized LA thrombus -If despite changes in diuresis patient remains significantly volume overloaded without any changes in her pulmonary status would consider consultation to nephrology for ultrafiltration versus further discussion with regards to hospice -I have asked palliative care to revisit the patient tomorrow 05/16/2021 -Pulmonary is following --> appreciate input Pleural effusions -Repeat chest x-rays -Discontinue Coumadin -Start heparin drip -Consider thoracentesis if effusions are persistent despite diuresis LA thrombus -Continue full anticoagulation -Discontinue Coumadin -INR 05/15/2021 was 3.3 -Start heparin drip in preparation for possible thoracentesis Anasarca -See above CKD stage IV -Patient follows with Dr. Lind at baseline -Consider consultation for consideration of ultrafiltration -Serum creatinine has improved with continued diuresis Contraction alkalosis secondary to diuresis -Suspect patient has a chronically elevated bicarbonate at baseline -If continues to trend up may need to consider Diamox versus discontinuation of loop diuretics DIEGO -Patient noncompliant at baseline -Discussed importance of continued therapy -Patient is tolerating continuous BiPAP at this time DM-2 -Continue Lantus but decrease dose from 30 units subcu twice daily to 20 twice daily with poor p.o. intake -A.m. fasting blood sugar was only 87 -Continue Accu-Cheks -Continue lispro sliding scale -P.o. intake has been poor so may need to adjust medications PAF -Continue full anticoagulation but convert to heparin drip for possible thoracentesis -Patient currently is in normal sinus rhythm -Continue to monitor on telemetry Hypertension/hyperlipidemia -Continue home medications DVT prophylaxis -Heparin drip CODE STATUS -This was readdressed with the patient and we had a discussion with regards to her poor prognosis -She and her significant other who is at the bedside would like her CODE STATUS to be changed to full code -They both do seem to grasp that she has not improved and may not improved but there seems to be a discordance between what they desire for treatment and her overall prognosis -Discussed with palliative care and they will revisit the patient tomorrow Charges/Coding Visit Charges Inpatient E&M: 64320 Subs Hosp L3
[2021-05-15 20:53] LABS: Partial Thromboplast Time > 250.0 Seconds (24.1-36.2)
--- NOTE | 2021-05-15 22:44 | NURSING ---
Dr. Caceres up to pt room to discuss code status with pt. He confirmed with pt that she does not want intubated and wants to remain dnr at this time.
[2021-05-15] MEDS: LORazepam 2 MG/ML Syringe 0.5 MG IV (23:19)
[2021-05-15] MEDS: 0.9% Saline Lock 10 ML Syringe IV (23:20)
[2021-05-16] VITALS (42 sets, daily range): BP systolic 85–157; BP diastolic 49–93; PULSE 67–133; RESP 14–24; TEMP 36.2–37.1; O2SAT 81–96
[2021-05-16 00:18] LABS: Bedside Glucose 74 mg/dL (70-110)
[2021-05-16] MEDS: HEPARIN/D5w 25,000 UNITS 25,000 UNITS/250 ML IV.SOLN. 17 UNITS IV (02:40)
[2021-05-16] MEDS: Ipratropium/Albuterol Sulfate 3 ML AMPUL.NEB INHALATION ×5 (03:15→19:14)
[2021-05-16 03:40] LABS: Absolute Lymphocyte Count 0.87 X10^3/uL (0.83-4.51); Absolute Neutrophil Count 6.6 X10^3/uL (2.0-7.7); Basophil# 0.02 X10^3/uL; Basophil% 0.2 % (0-1); Eosinophil# 0.12 X10^3/uL; Eosinophils% 1.4 % (0-5); Hematocrit 36.9 % (37-47); Hemoglobin 10.2 g/dL (12.0-15.0); Lymphocyte # 0.87 X10^3/ul (0.83-4.51); Lymphocyte % 10.5 % (19-41); Mean Corp Hgb Conc 27.6 g/dL (32-36); Mean Corpuscular Hgb 29.3 pg (27.0-32.0); Mean Platelet Vol. 10.9 fl (6.2-12.0); Monocyte# 0.69 X10^3/uL; Monocyte% 8.3 % (0-10); NRBC Flagged by Analyzer 0 % (0-5); Neutrophil # 6.55 X10^3/uL (2.7-7.7); Neutrophil % 79.2 % (47-70); Platelet Count 172 K/mm3 (150-450); RBC Distribution Width CV 14.7 % (11.6-14.6); RBC Distribution Width SD 57.3 fl (35.1-43.9); Red Blood Count 3.48 M/mm3 (4.2-5.4); White Blood Count 8.3 K/mm3 (4.4-11.0)
[2021-05-16 03:47] LABS: International Normalized Ratio 4.2; Prothrombin Time (Protime)PT. 39.4 SECONDS (11.7-14.9)
[2021-05-16 03:51] LABS: Anion Gap 3 (5-15); BUN 76 mg/dL (7-18); BUN/Creat Ratio 30.5 RATIO (10-20); Calcium,Total 8.7 mg/dL (8.5-10.1); Chloride 102 mmol/L (98-107); Creatinine, Serum 2.49 mg/dL (0.55-1.02); EST Glomerular Filtration Rate 20 mL/min (>60); Est Glom Filt Rate - Afr Amer 25 mL/min (>60); Estimated Creatinine Clearance 21.03 ml/min; Glucose 75 mg/dL (74-106); Magnesium 2.4 mg/dL (1.6-2.6); Potassium 3.4 mmol/L (3.5-5.1); Sodium Level 144 mmol/L (136-145)
[2021-05-16] MEDS: Metoprolol Tartrate 5 MG/5 ML Vial IV (03:54)
[2021-05-16] MEDS: 0.9% Saline Lock 10 ML Syringe IV (03:55)
[2021-05-16 04:03] LABS: Partial Thromboplast Time > 250.0 Seconds (24.1-36.2)
--- NOTE | 2021-05-16 06:15 | NURSING ---
Addendum entered by Lila Greenwood 05/16/21 06:20: Paras contacted 05/16/21 am around 1171. Original Note: Pts significant other Paras given update on pt this am. Made aware that pt has decided to remain a dnrcc. Aware that pt is not maintaining her o2 sats this am and that this rn wants him/family to come in to be at bedside. Paras stated that he would be in this am, did not give this rn time he would be arriving.
[2021-05-16 06:16] LABS: Bedside Glucose 76 mg/dL (70-110)
--- NOTE | 2021-05-16 06:55 | NURSING ---
Pts family/significant other arrived at this time and at pts bedside.
--- NOTE | 2021-05-16 08:26 | PN.HOSP_ITS ---
Subjective Subjective Patient is a 70-year-old lady with multiple comorbidities including chronic kidney disease stage III chronic hypoxic respiratory failure secondary to obstructive sleep apnea admitted with progressive shortness of breath. Objective Data Objective Data Vital Signs: Vital Signs Temp Pulse Resp BP Pulse Ox 97.6 F L 123 H 20 H 134/66 H 81 05/16/21 07:00 05/16/21 07:00 05/16/21 07:00 05/16/21 07:00 05/16/21 07:00 Oxygen Flow Rate (L/min) 15 Oxygen Delivery Method Bi-pap Weight: 161.2 kg Body Mass Index (BMI) 58.0 Intake & Output: Intake and Output for Last 24 Hours 05/14/21 05/15/21 05/16/21 23:59 23:59 23:59 Intake Total 800 / 1200 1287.04 / 1287.04 87.83 / 87.83 Output Total 750 / 1450 2500 / 2500 550 / 550 Balance 50 / -250 -1212.96 / -1212.96 -462.17 / -462.17 Lab / Micro Data Result Diagrams: 05/16/21 03:12 05/16/21 03:12 Labs: Laboratory Results - last 24 hr 05/15/21 08:40: WBC 7.0, RBC 3.29 L, Hgb 9.6 L, Hct 34.4 L, MCV 104.6 H, MCH 29.2, MCHC 27.9 L, RDW Std Deviation 57.0 H, RDW Coeff of Angelika 14.7 H, Plt Count 182, MPV 10.7, Immature Gran % (Auto) 0.300, Neut % (Auto) 70.9 H, Lymph % (Auto) 17.5 L, [place] % (Auto) 8.3, Eos % (Auto) 2.7, Baso % (Auto) 0.3, Absolute Neuts (auto) 5.0, Absolute Lymphs (auto) 1.23, Nucleated RBC % 0 05/15/21 08:40: Sodium 143, Potassium 3.5, Chloride 102, Carbon Dioxide 37.0 H, Anion Gap 4 L, BUN 81 H, Creatinine 2.47 H, Estim Creat Clear Calc 21.20, Est GFR (MDRD) Af Amer 25 L, Est GFR (MDRD) Non-Af 21 L, BUN/Creatinine Ratio 32.8 H , Glucose 87, Calcium 8.7, Total Bilirubin 0.80, AST 13 L, ALT 12 L, Alkaline Phosphatase 52, Total Protein 7.5, Albumin 2.5 L, Globulin 5.0 H, Albumin/Globulin Ratio 0.5 L 05/15/21 11:07: POC Glucose 97 05/15/21 13:04: PT 33.0 H, INR 3.3, APTT 41.1 H 05/15/21 16:36: POC Glucose 83 05/15/21 20:00: APTT > 250.0 H* 05/15/21 21:52: POC Glucose 74 05/16/21 03:12: PT 39.4 H, INR 4.2 H*, APTT > 250.0 H* 05/16/21 03:12: WBC 8.3, RBC 3.48 L, Hgb 10.2 L, Hct 36.9 L, MCV 106.0 H, MCH 29.3, MCHC 27.6 L, RDW Std Deviation 57.3 H, RDW Coeff of Angelika 14.7 H, Plt Count 172, MPV 10.9, Immature Gran % (Auto) 0.400, Neut % (Auto) 79.2 H, Lymph % (Auto) 10.5 L, Adams % (Auto) 8.3, Eos % (Auto) 1.4, Baso % (Auto) 0.2, Absolute Neuts (auto) 6.6, Absolute Lymphs (auto) 0.87, Nucleated RBC % 0 05/16/21 03:12: Sodium 144, Potassium 3.4 L, Chloride 102, Carbon Dioxide 39.0 H , Anion Gap 3 L, BUN 76 H, Creatinine 2.49 H, Estim Creat Clear Calc 21.03, Est GFR (MDRD) Af Amer 25 L, Est GFR (MDRD) Non-Af 20 L, BUN/Creatinine Ratio 30.5 H , Glucose 75, Calcium 8.7, Magnesium 2.4 05/16/21 03:12: APTT Cancelled 05/16/21 05:20: Blood Type A POSITIVE, Antibody Screen NEGATIVE 05/16/21 06:02: POC Glucose 76 Micro: Microbiology 05/11/21 15:37 Nasal Secretion SARS-CoV-2 Antigen (Rapid) - Final Radiography Diagnostic Testing: Radiology Impression Chest X-Ray 05/15/21 12:42 IMPRESSION: Mild worsening of multilobar pulmonary interstitial and airspace disease. Small pleural effusion suspected, similar on the right. Electronically Signed: Ga Burkett MD ([facility]) at 16:49 EDT , Service support , Rhythm Strip Rhythm Strip: A-fib Rate: 95 Ectopy: PVC(s) Physical Exam Narrative GENERAL: On the vent HEENT: Atraumatic; EYES; Anicteric, Normal Conjunctiva NECK; supple, normal thyroid, RESPIRATORY: Diminished to auscultation CARDIOVASCULAR: Regular S1 S2, GI: soft, normoactive bowel sounds, : No Renal angle tenderness; EXTREMITIES: Bilateral edema MUSCULOSKELETAL: no muscle waisting NEURO: On the vent SKIN: No Rash Assessment & Plan Assessment/Plan (1) Acute and chronic respiratory failure with hypoxia: (2) Anasarca: (3) Chronic anemia: (4) CKD (chronic kidney disease) stage 3, GFR 30-59 ml/min: PLAN: Patient is a 70-year-old lady with multiple comorbidities including chronic kidney disease stage III chronic hypoxic respiratory failure secondary to obstructive sleep apnea admitted with progressive shortness of breath. Acute on chronic hypoxic respiratory failure ?Multifactorial including cor pulmonale, obesity hypoventilation syndrome, CHF with bilateral pleural effusion. Patient was managed on noninvasive ventilation however clinical condition deteriorated. Had an extensive discussion with pa chadd regarding patient's status which was changed to full code from DNR CCA no intubation. requested for all measures to be taking including intubation. Case discussed with Dr. Caldwell with pulmonary medicine patient transferred to ICU and subsequently intubated and placed on the vent 2. Acute congestive heart failure with preserved ejection fraction ?Echocardiogram on 03/31/2021 shows an EF of 55 to 60% a dilated RV, a dilated IVC and hepatic veins and a moderate sized LA thrombus. Patient managed with diuresis. Chest x-ray demonstrated pleural effusion plan also patient have undergone ultrasound-guided thoracocentesis which had to be postponed in view of her worsening respiratory status with subsequent intubation 3. Left atrial thrombus ?Patient was on systemic anticoagulation held placed on heparin. Heparin has since been resumed 4. Anasarca ?Attributed to patient fluid overload status from CHF 4. Chronic kidney disease stage IV ?Kidney function at baseline. Nephrology on consult?Dr. Lind 5. Obstructive sleep apnea ?Patient had been managed with BiPAP prior to her intubation 6. Paroxysmal atrial fibrillation ?Rate controlled on systemic anticoagulation 7. Diabetes mellitus type 2 ?Accu-Cheks every 6 with sliding scale coverage and long-acting insulin 8. Dyslipidemia ?Home medications continued 9. Essential hypertension ?Blood pressure stable did continue home medications 10. DVT prophylaxis ?On systemic anticoagulation Advance planning; patient had apparently changed her CODE STATUS to DNR CC the night prior however with her worsening conditions discussions were held with patient's daughter as well as significant other (her POA). Went over all scenarios ( FULL CODE, DNR CCA, DNR CCA with no intubation, and DNR CC and what each meant) patient's POA elected to discontinue the previous DNR CC CODE STATUS and change patient CODE STATUS to full code ?Total time spent on discussion 35 minutes Charges/Coding Visit Charges Inpatient E&M: 45816 Subs Hosp L3 Procedures Hospitalists Procedures: 80973 Advncd Care Plan 30 Min Multi Select Codes Hospitalists' Procedures Procedures: 25721 Advncd Care Plan 30 Min
--- NOTE | 2021-05-16 09:05 | NURSING ---
Report called to Raúl Shipman RN in ICU. Patient to be transferred to ICU bed 201
--- NOTE | 2021-05-16 09:06 | PN.CC_ITS ---
Assessment & Plan Assessment/Plan (1) Acute and chronic respiratory failure with hypoxia: (2) Acute respiratory failure with hypoxia and hypercarbia: (3) DIEGO (obstructive sleep apnea): PLAN: RECOMMENDATIONS: 1. Proceed with intubation. 2. Once intubated, wean FiO2 and PEEP to maintain oxygen saturations at or above 90%. 3. Coordinate with radiology for ultrasound-guided thoracentesis. 4. Administer FFP today prior to procedure to address coagulopathy. 5. Obtain arterial blood gas in 1 hour. 6. Obtain sputum and send for culture. 7. Continue heparin infusion. 8. Check MRSA screen and start empiric antimicrobials. IMPRESSIONS: 1. Acute on chronic combined respiratory failure secondary to probable cor pulmonale Clinical suspicion for progression to cor pulmonale secondary to noncompliance with DIEGO and low-salt therapy. An underlying pulmonary infectious etiology is also a possibility. Despite attempts at aggressive diuresis, the patient remained on continuous noninvasive positive pressure ventilatory support and c ontinued to decompensate from a respiratory perspective. Ultimately, she required transfer to the medical intensive care unit on April 26 and was intubated, after the patient's family revoked her DNR status and made her a full code. For now, the patient will be continued on aggressive diuretic therapy. In addition, empiric antimicrobials will be initiated. Will obtain and send sputum for culture. Continue heparin drip as ordered. Will give vitamin K today given supratherapeutic INR in hopes of completing a thoracentesis tomorrow. 2. Encephalopathy Likely secondary to hypercapnia in the setting of #1 and alveolar hypoventilation due to obesity. The patient has failed to respond to AVAPS and was therefore intubated. 3. CKD stage IV secondary to DMII Clinical suspicion for progression of kidney disease secondary to prerenal et iology secondary to poor mechanics with volume overload. Will monitor creatinine as patient receives diuresis. Diuresis may lead to better Starling forces and better cardiac output. 4. Diabetes mellitus type 2/hypertension/paroxysmal A. fib/morbid obesity/poor follow-up/mural thrombus Complicates care, management, recovery and prognosis. Continue home medications as indicated. TIME: 45 minutes of critical care time, inclusive of procedures, was spent addressing the patient's acute on chronic combined respiratory failure, decompensated heart failure/cor pulmonale, encephalopathy, chronic kidney disease, review of all data and collaboration with care team. ([id number]) Subjective Subjective The patient was seen and examined at the bedside this morning. Events from the last 24 hours have been reviewed. Despite being on noninvasive positive pressure ventilatory support over the last several days and undergoing aggressive attempts at diuresis, the patient continues to decompensate from a respiratory perspective. She is less responsive this morning and no longer able to participate in medical decision making. In addition, despite being on 100% FiO2, she remains hypoxemic with oxygen saturations in the mid 80s. I met with the patient's family at the bedside and explained her overall prognosis. I explained to them that short of making her comfortable, the only other potential option would be to move her to the ICU and proceed with intubation in order to stabilize her respiratory perspective and allow for potential thoracentesis. Following a family meeting, the decision was made to revoke her DNR status and make her a full code. The patient was subsequently transferred to the medical intensive care unit, where she was ultimately intubated. Intubation Indication: Respiratory failure Consent was obtained from: Family The patient was placed in the appropriate sniffing position. Preoxygenated sedation via BiPAP was provided for a minimum of 3 minutes. The patient had continuous cardiac as well as pulse oximetry monitoring during the procedure. Procedure sedation was provided by the administration of 4 mg of Versed, 20 mg of etomidate and 100 mg of succinylcholine. Direct laryngoscopy was then performed using a number 3 MAC blade, which revealed a grade 1 view. A 7.5 mm endotracheal tube was visualized advancing between the cords to the level of 22 cm at the lip. The stylette was then removed and discarded. Tube placement was confirmed by fogging in the tube along with equal and bilateral breath sounds. Colorimetric change was visualized on the CO2 meter. The cuff was then inflated and the tube secured using a commercially available device. A good pulse oximetry waveform was seen on the monitor throughout the procedure. A portable chest x-ray has been ordered to confirm appropriate placement. The patient tolerated the procedure well. Objective Data Objective Data The patient's most recent lab work, culture data and imaging studies have all been personally reviewed. Surface echocardiogram from March 2021 demonstrated an ejection fraction of 55 to 60%. The RV was noted to be moderately dilated with mild to moderate global RV systolic dysfunction. Vital Signs: Vital Signs Temp Pulse Resp BP Pulse Ox 97.6 F L 123 H 20 H 134/66 H 81 09/21/21 07:00 05/16/21 07:00 05/16/21 07:00 05/16/21 07:00 05/16/21 07:00 Oxygen Flow Rate (L/min) 15 Oxygen Delivery Method Bi-pap Weight: 161.2 kg Body Mass Index (BMI) 58.0 Intake & Output: Intake and Output for Last 24 Hours 05/14/21 05/15/21 05/16/21 23:59 23:59 23:59 Intake Total 800 / 1200 1287.04 / 1287.04 87.83 / 87.83 Output Total 750 / 1450 2500 / 2500 550 / 550 Balance 50 / -250 -1212.96 / -1212.96 -462.17 / -462.17 Lab / Micro Data Attestation: I reviewed the patient's lab results. Result Diagrams: 05/16/21 03:12 05/16/21 03:12 Labs: Laboratory Results - last 24 hr 05/15/21 08:40: WBC 7.0, RBC 3.29 L, Hgb 9.6 L, Hct 34.4 L, MCV 104.6 H, MCH 29.2, MCHC 27.9 L, RDW Std Deviation 57.0 H, RDW Coeff of Angelika 14.7 H, Plt Count 182, MPV 10.7, Immature Gran % (Auto) 0.300, Neut % (Auto) 70.9 H, Lymph % (Auto) 17.5 L, [place]ink[place] % (Auto) 8.3, Eos % (Auto) 2.7, Baso % (Auto) 0.3, Absolute Neuts (auto) 5.0, Absolute Lymphs (auto) 1.23, Nucleated RBC % 0 05/15/21 08:40: Sodium 143, Potassium 3.5, Chloride 102, Carbon Dioxide 37.0 H, Anion Gap 4 L, BUN 81 H, Creatinine 2.47 H, Estim Creat Clear Calc 21.20, Est GFR (MDRD) Af Amer 25 L, Est GFR (MDRD) Non-Af 21 L, BUN/Creatinine Ratio 32.8 H , Glucose 87, Calcium 8.7, Total Bilirubin 0.80, AST 13 L, ALT 12 L, Alkaline Phosphatase 52, Total Protein 7.5, Albumin 2.5 L, Globulin 5.0 H, Albumin/Globulin Ratio 0.5 L 05/15/21 11:07: POC Glucose 97 05/15/21 13:04: PT 33.0 H, INR 3.3, APTT 41.1 H 05/15/21 16:36: POC Glucose 83 05/15/21 20:00: APTT > 250.0 H* 05/15/21 21:52: POC Glucose 74 05/16/21 03:12: PT 39.4 H, INR 4.2 H*, APTT > 250.0 H* 05/16/21 03:12: WBC 8.3, RBC 3.48 L, Hgb 10.2 L, Hct 36.9 L, MCV 106.0 H, MCH 29.3, MCHC 27.6 L, RDW Std Deviation 57.3 H, RDW Coeff of Angelika 14.7 H, Plt Count 172, MPV 10.9, Immature Gran % (Auto) 0.400, Neut % (Auto) 79.2 H, Lymph % (Auto) 10.5 L, [place]ink[place] % (Auto) 8.3, Eos % (Auto) 1.4, Baso % (Auto) 0.2, Absolute Neuts (auto) 6.6, Absolute Lymphs (auto) 0.87, Nucleated RBC % 0 05/16/21 03:12: Sodium 144, Potassium 3.4 L, Chloride 102, Carbon Dioxide 39.0 H , Anion Gap 3 L, BUN 76 H, Creatinine 2.49 H, Estim Creat Clear Calc 21.03, Est GFR (MDRD) Af Amer 25 L, Est GFR (MDRD) Non-Af 20 L, BUN/Creatinine Ratio 30.5 H , Glucose 75, Calcium 8.7, Magnesium 2.4 05/16/21 03:12: APTT Cancelled 05/16/21 05:20: Blood Type A POSITIVE, Antibody Screen NEGATIVE 05/16/21 06:02: POC Glucose 76 Micro: Microbiology 05/11/21 15:37 Nasal Secretion SARS-CoV-2 Antigen (Rapid) - Final Radiography Diagnostic Testing: Radiology Impression Chest X-Ray 05/15/21 12:42 IMPRESSION: Mild worsening of multilobar pulmonary interstitial and airspace disease. Small pleural effusion suspected, similar on the right. Electronically Signed: Ga Burkett MD ([facility]) at 16:49 EDT , Service support , Rhythm Strip Rhythm Strip: A-fib Rate: 95 Ectopy: PVC(s) Physical Exam Const General Appearance: in distress, lethargic and on BiPAP Nutritional Appearance: morbidly obese HEENT normocephalic and head/scalp atraumatic Eyes PERRL and EOMs intact bilaterally Neck supple General: trachea midline Resp Effort and Inspection: tachypneic Auscultation: rales, wheezes and diminished lung sounds; Negative for rhonchi Cardio S1 normal heart sound and S2 normal heart sound Rate: tachycardic GI normal to inspection, nondistended, normoactive bowel sounds Extremity General Extremity: edema bilateral lower extremity; Negative for clubbing Skin no rashes or lesions noted Neuro Sensorium / Orientation: somnolent Psych Mood & Affect: flat affect Charges/Coding Procedures Hospitalists Procedures: 54349 Critial Care 1st Hr
[2021-05-16] MEDS: Midazolam 5 MG/ML Syringe 4 MG IV (09:30)
[2021-05-16] MEDS: Etomidate 20 MG/10 ML Vial IV (09:30)
[2021-05-16] MEDS: Propofol 10MG/Ml 1,000 MG/100 ML Bottle 9.7 MG CONT INF (09:35)
--- NOTE | 2021-05-16 09:38 | RAD_ITS ---
STUDY: X-RAY CHEST REASON FOR EXAM: Female, 70 years old. Line placement post intubation TECHNIQUE: Single AP portable view of the chest. COMPARISON: Comparison is made with prior study dated 05/15/2021. FINDINGS: An endotracheal tube has been placed. The tip is at 2.5 cm proximal to the lucy. EKG electrodes are seen. An orogastric tube is seen with the tip below the left hemidiaphragm. Persistent bilateral pulmonary infiltrates worse in the left upper lobe. This has progressed as compared to prior study. There is no demonstrated pleural abnormality. Normal size heart. Normal mediastinum and ray. Normal visualized pulmonary arteries. Normal visualized aortic arch and descending thoracic aorta. There are diffuse degenerative changes of the visualized thoracic spine. Normal visualized ribs, clavicles, and shoulders. There is no demonstrated abnormality of the visualized soft tissue structures of the upper abdomen. RAD/Chest 1 View (Portable) IMPRESSION: The tip of the endotracheal tube is at 2.5 sinus proximal to the lucy. Persistent bilateral pulmonary infiltrates worse in the left upper lobe with progressive infiltrate in the left upper lobe. Electronically Signed: Vaughn Atkins MD at 10:14 EDT , Service support ,
[2021-05-16 11:06] LABS: Blood Gas Specimen Type VEN; O2 Delivery Device Adult Vent; PEEP 14; RR 14; SITE L Radial; VBG BASE EXCESS 11 mmol/L (-1.0-3.5); VBG Bicarbonate 38 mmol/L (22-26); VBG PO2 33 mmHg (25-40); VBG SO2 51 % (50-70); VBG TCO2 41 mmol/L (23-33); VBG pCO2 85.7 mmHg (41-51); VBG pH 7.26 (7.32-7.42)
[2021-05-16] MEDS: Nystatin Powder 15gm Bottle 1 APPLIC TOPICAL ×2 (11:13→22:13)
[2021-05-16 12:00] LABS: Bedside Glucose 110 mg/dL (70-110)
[2021-05-16 12:30] LABS: Partial Thromboplast Time 188.6 Seconds (24.1-36.2)
[2021-05-16 12:47] LABS: CPK Total, Creatine Kinase 43 U/L (26-192); Triglycerides 72 mg/dL
[2021-05-16] MEDS: LINAGLIPTIN 5 MG TABLET PO (13:11)
[2021-05-16] MEDS: Sertraline 50 MG Tablet PO (13:11)
[2021-05-16] MEDS: Metolazone 2.5 MG Tablet PO (13:11)
[2021-05-16] MEDS: Gabapentin 600 MG Tablet PO ×2 (13:25→16:16)
[2021-05-16] MEDS: Vital High Protein 1,000 ML 65 ML GT (15:00)
[2021-05-16] MEDS: Propofol 10MG/Ml 1,000 MG/100 ML Bottle 19.3 MG CONT INF ×2 (15:00→19:57)
[2021-05-16 15:46] LABS: M R Staph aureus DNA By PCR Negative (Negative); Probe Check PASS; Specimen Processing Control PASS
[2021-05-16 20:08] LABS: Cytoplasmic Ab (C-ANCA) 1:40 titer (Neg:<1:20)
[2021-05-16 20:20] LABS: Complement C3 146 mg/dL (82-167); Perinuclear Ab (P-ANCA) <1:20 titer (Neg:<1:20)
[2021-05-16] MEDS: Atorvastatin Calcium 10 MG Tablet PO (22:13)
[2021-05-16] MEDS: Insulin Lispro 100 UNIT/ML INSULN.PEN SC (22:13)
[2021-05-16 22:25] LABS: Bedside Glucose 157 mg/dL (70-110)
[2021-05-16 22:28] LABS: Partial Thromboplast Time 77.1 Seconds (24.1-36.2)
[2021-05-17] VITALS (44 sets, daily range): BP systolic 87–121; BP diastolic 54–91; PULSE 16–72; RESP 12–19; TEMP 36.3–36.9; O2SAT 65–90
--- NOTE | 2021-05-17 | IMM_PTH ---
PATIENT: ELINA MEZA LOC: ICU U#:[id number] AGE/SX: 70/F ROOM: [place] [address] RE05/11/[address]: Dr. Geo Shaffer MD : 1950 BED: 1 DIS: 05/18/2021 SPEC #: [id number] RECD: 05/18/21 12:01 STATUS: TAMMY REQ #: [id number] THANG: 05/17/21 00:[address]: Patrick Caldwell DEPT: IMMUNOHISTOCHEMISTRY RECD BY: Candi Montiel ENTERED: 05/18/21 12:04 SP TYPE: IMMUNO OTHR DR: MD Dr. Geo Rodriguez MD Dr. Ifijen Oleghe, MD Christina Muller, INSURANCE ADJUSTOR-C Marshall Baltazar, INSURANCE ADJUSTOR-C Tissues: THORACIC FLUID Procedures: Rober Ret (add) CD45 (add) CK20 (add) CK5-6 (add) CK7 (add) MACRO (add) Pankeratin (initial) P40 (add) PHYSICIAN & [place] [phone] SPECIMEN INFORMATION: Tissue Source: Thoracentesis fluid Clinical Info: Pleural effusion Specimen Number: [id number] CPT code: 73560, 41823 x8 METHODOLOGY: Deparaffinized sections of prefer/formalin-fixed tissue or PAP/DQ stained slides are incubated with monoclonal/polyclonal antibodies/oligonucleotide probes. Localization is made via biotin free immunoperoxidase method. Appropriate controls are performed and reacted as expected. Results on target cell population are indicated in the following table: RESULTS: ANTIBODY / CLONE RESULT AE1-3 (AE1/AE3/PCK26) positive CK7 (OV-TL12/30) positive CK20 (KS20.8) negative CD45 (RP2/18) positive Vimentin (V9) positive Macro (HAM-56) positive CALRET (polyclonal) positive CK5-6 (D5 & 1684) positive P40 (BC28) negative These tests were developed and their performance characteristics determined by [facility]. They may not have been cleared or approved by the U.S. Food and Drug Administration. The FDA has determined that such clearance or approval is not necessary. The above immunohistochemical/dualISH markers are ordered and reviewed by the Pathologist. INTERPRETATION: Thoracentesis fluid: No evidence of malignancy. AM:rommel 05/22/2021
[2021-05-17] MEDS: Propofol 10MG/Ml 1,000 MG/100 ML Bottle 19.3 MG CONT INF ×4 (01:00→16:28)
[2021-05-17] MEDS: CHLORHEXIDINE GLUC 2% CLOTH 1 EACH TOWELETTE TOPICAL (01:06)
[2021-05-17] MEDS: HEPARIN/D5w 25,000 UNITS 25,000 UNITS/250 ML IV.SOLN. 12 UNITS IV (01:44)
[2021-05-17 03:46] LABS: Bedside Glucose 111 mg/dL (70-110)
[2021-05-17 04:51] LABS: Partial Thromboplast Time 125.3 Seconds (24.1-36.2)
[2021-05-17 05:31] LABS: Absolute Lymphocyte Count 1.27 X10^3/uL (0.83-4.51); Absolute Neutrophil Count 6.3 X10^3/uL (2.0-7.7); Basophil# 0.02 X10^3/uL; Basophil% 0.2 % (0-1); Eosinophil# 0.14 X10^3/uL; Eosinophils% 1.7 % (0-5); Hematocrit 31.6 % (37-47); Hemoglobin 9.3 g/dL (12.0-15.0); Lymphocyte # 1.27 X10^3/ul (0.83-4.51); Lymphocyte % 15.5 % (19-41); Mean Corp Hgb Conc 29.4 g/dL (32-36); Mean Corpuscular Hgb 29.8 pg (27.0-32.0); Mean Corpuscular Volume 101.3 fL (81-99); Mean Platelet Vol. 12.3 fl (6.2-12.0); Monocyte# 0.47 X10^3/uL; Monocyte% 5.7 % (0-10); NRBC Flagged by Analyzer 0 % (0-5); Neutrophil # 6.27 X10^3/uL (2.7-7.7); Neutrophil % 76.5 % (47-70); Platelet Count 155 K/mm3 (150-450); RBC Distribution Width CV 14.9 % (11.6-14.6); RBC Distribution Width SD 55.9 fl (35.1-43.9); Red Blood Count 3.12 M/mm3 (4.2-5.4); White Blood Count 8.2 K/mm3 (4.4-11.0)
[2021-05-17 05:36] LABS: International Normalized Ratio 2.2; Prothrombin Time (Protime)PT. 23.3 SECONDS (11.7-14.9)
[2021-05-17 05:48] LABS: ALB/GLOB Ratio 0.4 RATIO (0.9-2.4); AST(SGOT) 18 U/L (15-37); Alanine Aminotransfer ALT/SGPT 12 U/L (13-56); Albumin, Serum 2.1 g/dL (3.2-5.0); Alkaline Phosphatase 51 U/L (45-117); Anion Gap 3 (5-15); BUN 81 mg/dL (7-18); BUN/Creat Ratio 30.6 RATIO (10-20); Calcium,Total 8.5 mg/dL (8.5-10.1); Chloride 101 mmol/L (98-107); Creatinine, Serum 2.65 mg/dL (0.55-1.02); EST Glomerular Filtration Rate 19 mL/min (>60); Est Glom Filt Rate - Afr Amer 23 mL/min (>60); Estimated Creatinine Clearance 19.76 ml/min; Globulin 4.7 g/dL (2.2-4.2); Glucose 188 mg/dL (74-106); Potassium 3.3 mmol/L (3.5-5.1); Protein, Total 6.8 g/dL (6.4-8.2); Sodium Level 140 mmol/L (136-145)
[2021-05-17] MEDS: Ipratropium/Albuterol Sulfate 3 ML AMPUL.NEB INHALATION ×5 (06:40→23:18)
--- NOTE | 2021-05-17 07:22 | PN.HOSP_ITS ---
Subjective Subjective Patient seen remains sedated on the vent. Scheduled to undergo ultrasound guided thoracocentesis Objective Data Objective Data Vital Signs: Vital Signs Temp Pulse Resp BP Pulse Ox 98.1 F 67 16 97/61 88 05/17/21 04:00 05/17/21 06:38 05/17/21 06:38 05/17/21 06:00 05/17/21 06:38 Oxygen Flow Rate (L/min) 15 Oxygen Delivery Method Mechanical Ventilator Weight: 160.4 kg Body Mass Index (BMI) 58.0 Intake & Output: Intake and Output for Last 24 Hours 05/15/21 05/16/21 05/17/21 23:59 23:59 23:59 Intake Total 1287.04 / 1287.04 1052.34 / 1084.14 373.49 / 373.49 Output Total 2500 / 2500 1424 / 2024 600 / 600 Balance -1212.96 / -1212.96 -372.66 / -940.86 -226.51 / -226.51 Medical Nutrition Assessment Dietitian: Malnutrition Criteria Met Start: 05/16/21 11:07 Freq: Status: Active Protocol: Document 05/16/21 11:07 ZACHARY (Rec: 05/16/21 11:07 [facility] [id number]) Nutrition Malnutrition Evidence of Malnutrition Exists Yes Evidenced By Suboptimal Energy Intake ( Severe),Weight Loss (Severe) Clinical Problem Acute Disease or Injury Related Malnutrition Etiology related to worsening respiratory issues and need for inubation Signs/Symptoms as evidenced by 4.2% wt loss and decreased po intake x 5 days Status Active Problem Altered Nutrient-Related Laboratory Values Etiology related to renal dysfunction Signs/Symptoms as evidenced by BUN 76, Cr 2. 49 Status Active Problem Unintended Weight Gain Status Resolved Problem Recommendation Dietitian Recommendations/Changes Start enteral nutrition support of Vital High Protein at goal rate 65 ml/hr w/ 65 ml water flush every 6 hours to provide ~ 1560 katey/ 136 gm pro / 1564 ml free water/day. Will start tf at 20 ml/hr and increase by 15 ml/hr every 8- 10 hrs as pt tolerates until goal rate of 65 ml/hr achieved . Lab / Micro Data Result Diagrams: 05/17/21 04:30 05/17/21 04:30 Labs: Laboratory Results - last 24 hr 05/11/21 20:06: c-ANCA Antibody 1:40 H, Atypical p-ANCA <1:20, p-ANCA Antibody <1:20, Complement C3 146, Complement C4 26 05/16/21 05:20: Blood Type A POSITIVE, Antibody Screen NEGATIVE 05/16/21 11:30: POC Glucose 110 05/16/21 11:50: APTT 188.6 H* 05/16/21 11:50: MRSA (PCR) Negative 05/16/21 11:50: Total Creatine Kinase 43, Triglycerides 72 05/16/21 16:16: POC Glucose 111 H 05/16/21 22:10: APTT 77.1 H 05/16/21 22:12: POC Glucose 157 H 05/17/21 04:30: PT 23.3 H, INR 2.2 05/17/21 04:30: APTT 125.3 H* 05/17/21 04:30: WBC 8.2, RBC 3.12 L, Hgb 9.3 L, Hct 31.6 L, MCV 101.3 H, MCH 29.8, MCHC 29.4 L D, RDW Std Deviation 55.9 H, RDW Coeff of Angelika 14.9 H, Plt Count 155, MPV 12.3 H, Immature Gran % (Auto) 0.400, Neut % (Auto) 76.5 H, Lymph % (Auto) 15.5 L, [place] % (Auto) 5.7, Eos % (Auto) 1.7, Baso % (Auto) 0.2, Absolute Neuts (auto) 6.3, Absolute Lymphs (auto) 1.27, Nucleated RBC % 0 05/17/21 04:30: Sodium 140, Potassium 3.3 L, Chloride 101, Carbon Dioxide 36.0 H , Anion Gap 3 L, BUN 81 H, Creatinine 2.65 H, Estim Creat Clear Calc 19.76, Est GFR (MDRD) Af Amer 23 L, Est GFR (MDRD) Non-Af 19 L, BUN/Creatinine Ratio 30.6 H , Glucose 188 H, Calcium 8.5, Total Bilirubin 1.40 H, AST 18, ALT 12 L, Alkaline Phosphatase 51, Total Protein 6.8, Albumin 2.1 L, Globulin 4.7 H, Albumin/Globulin Ratio 0.4 L Micro: Microbiology 05/16/21 09:49 Sputum, Induced/Lukens Gram Stain - Final 05/11/21 15:37 Nasal Secretion SARS-CoV-2 Antigen (Rapid) - Final ABG Data ABG results: ABG 05/16/21 10:58 Specimen Type TONY Sample Site L Radial VBG pH 7.26 L VBG pO2 33 VBG HCO3 38 H VBG Total CO2 41 H VBG O2 Sat (Calc) 51 VBG Base Excess 11 H POC Mix VBG pCO2 Pt Tmp 85.7 H* Respiration Rate 14 O2 Delivery Device Adult Vent POC PEEP 14 Crit Call To/Read Back Yes Blood Gas Notified Whom ASPEN Blood Gas Notified Time 11:00:49 Radiography Diagnostic Testing: Radiology Impression Chest X-Ray 05/16/21 09:38 IMPRESSION: The tip of the endotracheal tube is at 2.5 sinus proximal to the lucy. Persistent bilateral pulmonary infiltrates worse in the left upper lobe with progressive infiltrate in the left upper lobe. Electronically Signed: Vaughn Atkins MD at 10:14 EDT , Service support , Rhythm Strip Rhythm Strip: A-fib Rate: 95 Ectopy: PVC(s) Physical Exam Narrative GENERAL: On the vent HEENT: Atraumatic; EYES; Anicteric, Normal Conjunctiva NECK; supple, normal thyroid, RESPIRATORY: Diminished to auscultation CARDIOVASCULAR: Regular S1 S2, GI: soft, normoactive bowel sounds, : No Renal angle tenderness; EXTREMITIES: Bilateral edema MUSCULOSKELETAL: no muscle waisting NEURO: On the vent SKIN: No Rash Assessment & Plan Assessment/Plan (1) Acute and chronic respiratory failure with hypoxia: (2) Anasarca: (3) Chronic anemia: (4) CKD (chronic kidney disease) stage 3, GFR 30-59 ml/min: PLAN: Patient is a 70-year-old lady with multiple comorbidities including chronic kidney disease stage III chronic hypoxic respiratory failure secondary to obstructive sleep apnea admitted with progressive shortness of breath. 1. Acute on chronic hypoxic respiratory failure ?Multifactorial including cor pulmonale, obesity hypoventilation syndrome, CHF with bilateral pleural effusion. Patient was managed on noninvasive ventilation however clinical condition deteriorated. Had an extensive discussion with patient regarding patient's status which was changed to full code from DNR CCA no intubation. requested for all measures to be taking including intubation. Case discussed with Dr. Caldwell with pulmonary medicine patient transferred to ICU and subsequently intubated and placed on the vent ?05/17/2021. Patient remains on the vent vent management deferred to pulmonary medicine 2. Acute congestive heart failure with preserved ejection fraction ?Echocardiogram on 03/31/2021 shows an EF of 55 to 60% a dilated RV, a dilated IVC and hepatic veins and a moderate sized LA thrombus. Patient managed with diuresis. Chest x-ray demonstrated pleural effusion plan also patient have undergone ultrasound-guided thoracocentesis which had to be postponed in view of her worsening respiratory status with subsequent intubation -05/17/2021;Patient seen remains sedated on the vent. Scheduled to undergo ultrasound guided thoracocentensis 3. Left atrial thrombus ?Patient was on systemic anticoagulation held placed on heparin. Heparin has since been resumed 4. Anasarca ?Attributed to patient fluid overload status from CHF 4. Chronic kidney disease stage IV ?Kidney function at baseline. Nephrology on consult?Dr. Lind 5. Obstructive sleep apnea ?Patient had been managed with BiPAP prior to her intubation 6. Paroxysmal atrial fibrillation ?Rate controlled on systemic anticoagulation 7. Diabetes mellitus type 2 ?Accu-Cheks every 6 with sliding scale coverage and long-acting insulin 8. Dyslipidemia ?Home medications continued 9. Essential hypertension ?Blood pressure stable did continue home medications 10. DVT prophylaxis ?On systemic anticoagulation 7. Moderate protein calorie malnutrition ?Dietitian on consult Charges/Coding Visit Charges Inpatient E&M: 26452 [facility] L3
--- NOTE | 2021-05-17 07:23 | PN.CC_ITS ---
Assessment & Plan Assessment/Plan (1) Acute and chronic respiratory failure with hypoxia: (2) Acute respiratory failure with hypoxia and hypercarbia: (3) DIEGO (obstructive sleep apnea): PLAN: RECOMMENDATIONS: 1. Wean FiO2 and PEEP to maintain oxygen saturations at or above 90%. 2. Continue empiric antimicrobials. 3. Proceed with ultrasound-guided thoracentesis today. 4. Administer FFP this morning. Place heparin drip on hold until after the procedure. 5. De-escalate Lasix regimen given worsening renal insufficiency. 6. Continue tube feeds as tolerated. 7. Continue appropriate ICU prophylaxis. IMPRESSIONS: 1. Acute on chronic combined respiratory failure secondary to probable cor pulmonale Clinical suspicion for progression to cor pulmonale secondary to noncompliance with DIEGO and low-salt therapy. An underlying pulmonary infectious etiology is also a possibility. Despite attempts at aggressive diuresis, the patient remained on continuous noninvasive positive pressure ventilatory support and continued to decompensate from a respiratory perspective. Ultimately, she required transfer to the medical intensive care unit on April 26 and was intubated, after the patient's family revoked her DNR status and made her a full code. For now, the patient will be continued on aggressive diuretic therapy. In addition, empiric antimicrobials will be continued. Continue heparin drip as ordered. Plan for thoracentesis at some point today. 2. Encephalopathy Likely secondary to hypercapnia in the setting of #1 and alveolar hypoventilation due to obesity. The patient has failed to respond to AVAPS and was therefore intubated. 3. CKD stage IV secondary to DMII Clinical suspicion for progression of kidney disease secondary to prerenal etiology secondary to poor mechanics with volume overload. Will monitor creatinine as patient receives diuresis. Diuresis may lead to better Starling forces and better cardiac output. 4. Diabetes mellitus type 2/hypertension/paroxysmal A. fib/morbid obesity/poor follow-up/mural thrombus Complicates care, management, recovery and prognosis. Continue home medications as indicated. TIME: 40 minutes of critical care time, inclusive of procedures, was spent addressing the patient's acute on chronic combined respiratory failure, decompensated heart failure/cor pulmonale, encephalopathy, chronic kidney disease, review of all data and collaboration with care team. ([id number]) Subjective Subjective The patient was seen and examined at the bedside this morning. Events from the last 24 hours have been reviewed. The patient is currently afebrile, hemodynamically stable and maintaining appropriate oxygen saturations on assist control mode of mechanical ventilation with an FiO2 requirement of 100% and PEEP of 16. The patient remains on a continuous Lasix infusion. She is currently documented to be overall net -5.6 L for the hospital admission. INR has improved to 2.2 this morning, in light of vitamin K yesterday. Chemistry profile was notable for a potassium of 3.3, bicarbonate of 36 and creatinine of 2.65. The patient is currently sedated on propofol and fentanyl. She is cur rently tolerating tube feeds. I did call and speak with ultrasound this morning who indicated that they would be able to performed a thoracentesis once FFP is running. The patient's heparin drip will also be placed on hold. Objective Data Objective Data The patient's most recent lab work, culture data and imaging studies have all been personally reviewed. Rapid coronavirus antigen testing was negative on May 11. Sputum culture is pending. Vital Signs: Vital Signs Temp Pulse Resp BP Pulse Ox 98.1 F 67 16 97/61 88 05/17/21 04:00 05/17/21 06:38 05/17/21 06:38 05/17/21 06:00 05/17/21 06:38 Oxygen Flow Rate (L/min) 15 Oxygen Delivery Method Mechanical Ventilator Weight: 160.4 kg Body Mass Index (BMI) 58.0 Intake & Output: Intake and Output for Last 24 Hours 05/15/21 05/16/21 05/17/21 23:59 23:59 23:59 Intake Total 1287.04 / 1287.04 1052.34 / 1084.14 373.49 / 373.49 Output Total 2500 / 2500 1425 / 2025 600 / 600 Balance -1212.96 / -1212.96 -372.66 / -940.86 -226.51 / -226.51 Medical Nutrition Assessment Dietitian: Malnutrition Criteria Met Start: 05/16/21 11:07 Freq: Status: Active Protocol: Document 05/16/21 11:07 ZACHARY (Rec: 05/16/21 11:07 ZACHARY [id number]) Nutrition Malnutrition Evidence of Malnutrition Exists Yes Evidenced By Suboptimal Energy Intake ( Severe),Weight Loss (Severe) Clinical Problem Acute Disease or Injury Related Malnutrition Etiology related to worsening respiratory issues and need for inubation Signs/Symptoms as evidenced by 4.2% wt loss and decreased po intake x 5 days Status Active Problem Altered Nutrient-Related Laboratory Values Etiology related to renal dysfunction Signs/Symptoms as evidenced by BUN 76, Cr 2. 49 Status Active Problem Unintended Weight Gain Status Resolved Problem Recommendation Dietitian Recommendations/Changes Start enteral nutrition support of Vital High Protein at goal rate 65 ml/hr w/ 65 ml water flush every 6 hours to provide ~ 1560 katey/ 136 gm pro / 1564 ml free water/day. Will start tf at 20 ml/hr and increase by 15 ml/hr every 8- 10 hrs as pt tolerates until goal rate of 65 ml/hr achieved . Lab / Micro Data Attestation: I reviewed the patient's lab results. Result Diagrams: 05/17/21 04:30 05/17/21 04:30 Labs: Laboratory Results - last 24 hr 05/11/21 20:06: c-ANCA Antibody 1:40 H, Atypical p-ANCA <1:20, p-ANCA Antibody <1:20, Complement C3 146, Complement C4 26 05/16/21 05:20: Blood Type A POSITIVE, Antibody Screen NEGATIVE 05/16/21 11:30: POC Glucose 110 05/16/21 11:50: APTT 188.6 H* 05/16/21 11:50: MRSA (PCR) Negative 05/16/21 11:50: Total Creatine Kinase 43, Triglycerides 72 05/16/21 16:16: POC Glucose 111 H 05/16/21 22:10: APTT 77.1 H 05/16/21 22:12: POC Glucose 157 H 05/17/21 04:30: PT 23.3 H, INR 2.2 05/17/21 04:30: APTT 125.3 H* 05/17/21 04:30: WBC 8.2, RBC 3.12 L, Hgb 9.3 L, Hct 31.6 L, MCV 101.3 H, MCH 29.8, MCHC 29.4 L D, RDW Std Deviation 55.9 H, RDW Coeff of Angelika 14.9 H, Plt Count 155, MPV 12.3 H, Immature Gran % (Auto) 0.400, Neut % (Auto) 76.5 H, Lymph % (Auto) 15.5 L, [place] % (Auto) 5.7, Eos % (Auto) 1.7, Baso % (Auto) 0.2, Absolute Neuts (auto) 6.3, Absolute Lymphs (auto) 1.27, Nucleated RBC % 0 05/17/21 04:30: Sodium 140, Potassium 3.3 L, Chloride 101, Carbon Dioxide 36.0 H , Anion Gap 3 L, BUN 81 H, Creatinine 2.65 H, Estim Creat Clear Calc 19.76, Est GFR (MDRD) Af Amer 23 L, Est GFR (MDRD) Non-Af 19 L, BUN/Creatinine Ratio 30.6 H , Glucose 188 H, Calcium 8.5, Total Bilirubin 1.40 H, AST 18, ALT 12 L, Alkaline Phosphatase 51, Total Protein 6.8, Albumin 2.1 L, Globulin 4.7 H, Albumin/Globulin Ratio 0.4 L Micro: Microbiology 05/16/21 09:49 Sputum, Induced/Lukens Gram Stain - Final 05/11/21 15:37 Nasal Secretion SARS-CoV-2 Antigen (Rapid) - Final ABG Data ABG results: ABG 05/16/21 10:58 Specimen Type TONY Sample Site L Radial VBG pH 7.26 L VBG pO2 33 VBG HCO3 38 H VBG Total CO2 41 H VBG O2 Sat (Calc) 51 VBG Base Excess 11 H POC Mix VBG pCO2 Pt Tmp 85.7 H* Respiration Rate 14 O2 Delivery Device Adult Vent POC PEEP 14 Crit Call To/Read Back Yes Blood Gas Notified Whom BROWN Blood Gas Notified Time 11:00:49 Radiography Diagnostic Testing: Radiology Impression Chest X-Ray 05/16/21 09:38 IMPRESSION: The tip of the endotracheal tube is at 2.5 sinus proximal to the lucy. Persistent bilateral pulmonary infiltrates worse in the left upper lobe with progressive infiltrate in the left upper lobe. Electronically Signed: Vaughn Atkins MD at 10:14 EDT , Service support , Rhythm Strip Rhythm Strip: A-fib Rate: 95 Ectopy: PVC(s) Physical Exam Const no apparent distress General Appearance: ill appearing, intubated and patient mechanically ventilated Nutritional Appearance: morbidly obese HEENT normocephalic and head/scalp atraumatic Mouth: endotracheal tube in place and OG tube in place Eyes PERRL and EOMs intact bilaterally Neck supple General: trachea midline Resp Auscultation: rales and diminished lung sounds; Negative for rhonchi or wheezes Cardio regular rate and regular rhythm GI normal to inspection, nondistended, normoactive bowel sounds Extremity General Extremity: edema bilateral lower extremity; Negative for clubbing Skin no rashes or lesions noted Neuro no focal motor deficits Sensorium / Orientation: sedated on vent Charges/Coding Procedures Hospitalists Procedures: 94058 Critial Care 1st Hr
[2021-05-17] MEDS: Insulin Lispro 100 UNIT/ML INSULN.PEN SC ×4 (07:26→22:50)
--- NOTE | 2021-05-17 07:26 | US_ITS ---
PROCEDURE: ULTRASOUND GUIDED THORACENTESIS. DATE: 05/17/2021. INDICATION: Female, 70 years old. Left pleural effusion. PHYSICIAN: Vaughn Atkins M.D. PROCEDURE: The risks, benefits, and alternatives to the procedure were explained to the patient. The specific risks of bleeding, infection, and pneumothorax requiring chest tube insertion were discussed and accepted. Written informed consent was obtained. Ultrasonographic evaluation of the left lower pleural space was carried out. An adequate pocket was identified. The patient was placed in the sitting, upright position. The overlying skin was prepped and draped in sterile fashion. 1% lidocaine was administered subcutaneously for local anesthesia. Under ultrasound guidance, a 5 [place] thoracentesis needle/catheter system was advanced into the left posterior lower pleural fluid collection. Approximately 100 mL of elpidio-colored fluid was drained. The catheter was removed, and a sterile dressing was applied. A specimen was collected and sent to the laboratory for analysis, as requested by the referring clinician. The patient tolerated the procedure well. A chest x-ray was ordered. US/Thoracentesis W US IMPRESSION: Ultrasound-guided left thoracentesis. Electronically Signed: Vaughn Atkins MD at 10:33 EDT , Service support ,
[2021-05-17] MEDS: Chlorhexidine 15 ML PO ×2 (07:27→22:51)
[2021-05-17] MEDS: Gabapentin 600 MG Tablet PO (07:27)
[2021-05-17] MEDS: LINAGLIPTIN 5 MG TABLET PO (08:57)
[2021-05-17] MEDS: Sertraline 50 MG Tablet PO (08:57)
[2021-05-17] MEDS: Metolazone 2.5 MG Tablet PO (08:58)
--- NOTE | 2021-05-17 09:50 | NURSING ---
Addendum entered by Montez Mcclelland 05/17/21 10:21: Radiology team at bedside to assist with Thoracentesis. Dr Deleon at bedside to perform Left thoracentesis. Thora completed, patient tolerated without complication, 100 mLs of clear yellow/brown body fluid removed. Sample sent to Lab for testing. Original Note: Rad
--- NOTE | 2021-05-17 09:57 | FLU_PTH ---
PATIENT: ELINA MEZA LOC: ICU U#:[id number] AGE/SX: 70/F ROOM: [place] [address] RE05/11/[address]: Dr. Geo Shaffer MD : 1950 BED: 1 DIS: 05/18/2021 SPEC #: [id number] RECD: 05/17/21 10:27 STATUS: SOULindsey REQ #: [id number] THANG: 05/17/21 09:[address]: Patrick Caldwell DEPT: CYTOLOGY RECD BY: Deena Cardozo ENTERED: 05/17/21 11:54 SP TYPE: Fluid OTHR DR: MD Dr. Patrick Rodriguez DO Dr. David Kittoe, MD Dr. Ifijen Oleghe, MD Christina Muller, MANDARIN TUTOR-C Marshall Baltazar, MANDARIN TUTOR-C Tissues: Pleural fluid, NOS Procedures: Special Stain Group II Surgery Specimen Level IV Cytospin Fluid Comments: @ Ordering doctor for SSII edited from to [email or web address] Rajput by KIRK at 05/17/21 1350 @ Ordering doctor for SUIV edited from to DR.[email or web address] Rajput by KIRK at 05/17/21 1350 @ Ordering doctor for CYSPIN edited from to [email or web address] Rajput by KIRK at 05/17/21 1350 @ Submitting doctor edited from to DR.[email or web address] Rajput by KIRK at 05/17/21 1350 HEADER OPERATION: Thoracentesis, left PRE-OP DIAGNOSIS: Pleural effusion TISSUE SUBMITTED: Thoracentesis fluid for cytology DIAGNOSIS CYTOLOGY Thoracentesis fluid for cytology (cytospin and cell block): Negative for malignant cells. See comment. KAELA:rommel 05/18/2021 COMMENT Immunohistochemistry ([id number]) supports the above diagnosis. CYTOLOGY STUDY Slides are reviewed. CYTOLOGY GROSS Received is 90 ml of yellow cloudy fluid labeled with the patient's name and and designated per the requisition as thoracentesis. Submitted for cytology preparation including cell block. / rommel 05/17/2021 TC:5 CPT: 92777, 16595
--- NOTE | 2021-05-17 10:09 | RAD_ITS ---
STUDY: X-RAY CHEST REASON FOR EXAM: Female, 70 years old. Post thoracentesis -- insp,exp TECHNIQUE: AP inspiration expiration views. COMPARISON: Comparison is made with prior examination dated 05/16/2021. FINDINGS: An endotracheal tube is in situ. The tip is at 2.3 cm proximal to the lucy. An orogastric tube is seen with the tip below the left hemidiaphragm. There is no evidence of pneumothorax on the immediate post left thoracentesis examination. Since prior study, there has been improved aeration of both lungs. RAD/Chest Insp/Exp 2 View IMPRESSION: Status post left thoracentesis. No evidence of pneumothorax. Electronically Signed: Vaughn Atkins MD at 10:46 EDT , Service support ,
[2021-05-17] MEDS: Lidocaine 2% (20 ml mdv) 20 ML Vial (10:27)
[2021-05-17] MEDS: Nystatin Powder 15gm Bottle 1 APPLIC TOPICAL ×2 (10:28→22:52)
[2021-05-17] MEDS: Sertraline 50 MG Tablet GT (10:29)
[2021-05-17 11:05] LABS: Cytology, Body Fluid / CSF SEE PATHOLOGY REPORT
[2021-05-17 11:24] LABS: Body Fluid Mononuclear WBC # 0.213 10^3/uL; Body Fluid Mononuclear WBC % 87.3 %; Body Fluid Polynuclear WBC # 0.031 10^3/uL; Body Fluid Polynuclear WBC % 12.7 %; Body Fluid Total Cells Counted 0.291 10^3/ul; White Blood Count/Body Fluid 0.244 10^3/uL
[2021-05-17 11:25] LABS: Appearance/Body Fluid CLEAR; Auto B Fluid Analyzer BKGD Ct COUNTS W/IN LIMITS (W/IN LIMITS); Color/Body Fluid YELLOW; Source- Body Fluid THORACENTESIS
[2021-05-17 11:34] LABS: Red Cell Count/Body Fluid 785 /mm3
[2021-05-17 12:04] LABS: Lymphocytes 53 %; Macrophages 1 %; Mesothelial Cells 2 %; Monocytes 12 %; Neutrophil (Segs) 17 %; Other Cell Type/BF 15 %
[2021-05-17 12:05] LABS: Bedside Glucose 223 mg/dL (70-110)
[2021-05-17 12:06] LABS: Body Fluid QC Type(s) BF1,BF2
[2021-05-17 12:52] LABS: Glucose, Body Fluid 201 mg/dL (40-70); LDH,Body Fluid 116 Units/l (Not Establ.); Protein, Body Fluid 3.6 g/dL (Not Establ.)
--- NOTE | 2021-05-17 13:25 | RAD_ITS ---
STUDY: X-RAY CHEST REASON FOR EXAM: Female, 70 years old. Hypoxia TECHNIQUE: Single AP portable view of the chest. COMPARISON: Comparison is made with prior examination done earlier today at 10:09 AM. FINDINGS: All the support tubes are in good position and unchanged. Stable bilateral pulmonary infiltrates. RAD/Chest 1 View (Portable) IMPRESSION: Stable bilateral pulmonary infiltrates. Electronically Signed: Vaughn Atkins MD at 14:21 EDT , Service support ,
[2021-05-17] MEDS: Gabapentin 600 MG Tablet GT ×2 (14:00→16:22)
[2021-05-17 14:28] LABS: ALB/GLOB Ratio 0.4 RATIO (0.9-2.4); Globulin 4.8 g/dL (2.2-4.2); LDH 225 U/L (84-246); Protein, Total 6.9 g/dL (6.4-8.2)
[2021-05-17 16:36] LABS: Bedside Glucose 233 mg/dL (70-110)
[2021-05-17] MEDS: Vital High Protein 1,000 ML 65 ML GT ×2 (18:49→20:16)
[2021-05-17] MEDS: Propofol 10MG/Ml 1,000 MG/100 ML Bottle 14.5 MG CONT INF (22:32)
[2021-05-17] MEDS: Atorvastatin Calcium 10 MG Tablet GT (22:51)
[2021-05-17 23:00] LABS: Bedside Glucose 223 mg/dL (70-110)
[2021-05-18] VITALS (17 sets, daily range): BP systolic 113–142; BP diastolic 52–120; PULSE 87–114; RESP 12–32; TEMP 36.7–36.9; O2SAT 74–83
[2021-05-18] MEDS: Ipratropium/Albuterol Sulfate 3 ML AMPUL.NEB INHALATION ×2 (03:59→07:47)
[2021-05-18] MEDS: HEPARIN/D5w 25,000 UNITS 25,000 UNITS/250 ML IV.SOLN. 12 UNITS IV (04:48)
[2021-05-18 05:01] LABS: Base Excess 10 mmol/L (-2 to +2); Bicarbonate 34.1 mmol/L (22-26); Blood Gas Specimen Type ART; FI02 100; Mode BiLevel; O2 Delivery Device Adult Vent; PO2 45 mmHG (75-100); RR 12; SITE R Radial; SO2 80 % (95-99); Total Carbon Dioxide 36 mmol/L; pCO2 52.7 mmHg (35-45); pH 7.42 (7.35-7.45)
[2021-05-18 05:07] LABS: Absolute Lymphocyte Count 1.27 X10^3/uL (0.83-4.51); Absolute Neutrophil Count 8.1 X10^3/uL (2.0-7.7); Basophil# 0.04 X10^3/uL; Basophil% 0.4 % (0-1); Eosinophil# 0.19 X10^3/uL; Eosinophils% 1.8 % (0-5); Hematocrit 34.2 % (37-47); Hemoglobin 10.1 g/dL (12.0-15.0); Lymphocyte # 1.27 X10^3/ul (0.83-4.51); Lymphocyte % 12.3 % (19-41); Mean Corp Hgb Conc 29.5 g/dL (32-36); Mean Corpuscular Hgb 29.4 pg (27.0-32.0); Mean Corpuscular Volume 99.7 fL (81-99); Mean Platelet Vol. 12.4 fl (6.2-12.0); Monocyte# 0.61 X10^3/uL; Monocyte% 5.9 % (0-10); NRBC Flagged by Analyzer 0 % (0-5); Neutrophil # 8.14 X10^3/uL (2.7-7.7); Neutrophil % 78.8 % (47-70); Platelet Count 162 K/mm3 (150-450); RBC Distribution Width CV 15.3 % (11.6-14.6); RBC Distribution Width SD 55.3 fl (35.1-43.9); Red Blood Count 3.43 M/mm3 (4.2-5.4); White Blood Count 10.3 K/mm3 (4.4-11.0)
[2021-05-18 05:16] LABS: International Normalized Ratio 1.5
[2021-05-18 05:18] LABS: Partial Thromboplast Time 65.2 Seconds (24.1-36.2)
[2021-05-18] MEDS: Propofol 10MG/Ml 1,000 MG/100 ML Bottle 14.5 MG CONT INF (05:26)
[2021-05-18 05:32] LABS: Anion Gap 6 (5-15); BUN 85 mg/dL (7-18); BUN/Creat Ratio 29.5 RATIO (10-20); Calcium,Total 8.3 mg/dL (8.5-10.1); Chloride 97 mmol/L (98-107); Creatinine, Serum 2.88 mg/dL (0.55-1.02); EST Glomerular Filtration Rate 17 mL/min (>60); Est Glom Filt Rate - Afr Amer 21 mL/min (>60); Estimated Creatinine Clearance 18.18 ml/min; Glucose 264 mg/dL (74-106); Potassium 3.8 mmol/L (3.5-5.1); Sodium Level 138 mmol/L (136-145)
--- NOTE | 2021-05-18 07:48 | PN.HOSP_ITS ---
Subjective Subjective Patient seen, remains on the vent. Patient apparently had a mucous plug which was suctioned out. Oxygen saturation remains relatively low (mid 70s to low 80s) despite being on optimal vent setting. Family to discuss possible terminal weaning Objective Data Objective Data Vital Signs: Vital Signs Temp Pulse Resp BP Pulse Ox 98.2 F 98 13 133/67 H 76 05/18/21 04:00 05/18/21 06:00 05/18/21 06:00 05/18/21 06:00 05/18/21 06:00 Oxygen Flow Rate (L/min) 15 Oxygen Delivery Method Mechanical Ventilator Weight: 162.5 kg Body Mass Index (BMI) 58.0 Intake & Output: Intake and Output for Last 24 Hours 05/16/21 05/17/21 05/18/21 23:59 23:59 23:59 Intake Total 1052.34 / 1084.14 2533.63 / 2548.13 322.27 / 322.27 Output Total 1425 / 5 1180 / 1180 400 / 400 Balance -372.66 / -940.86 1353.63 / 1368.13 -77.73 / -77.73 Medical Nutrition Assessment Dietitian: Malnutrition Criteria Met Start: 05/16/21 11:07 Freq: Status: Active Protocol: Document 05/17/21 09:55 AG (Rec: 05/17/21 09:55 AG [id number]) Nutrition Malnutrition Evidence of Malnutrition Exists No Clinical Problem Acute Disease or Injury Related Malnutrition Etiology - Signs/Symptoms - Status Inactive Problem Altered Nutrient-Related Laboratory Values Etiology related to renal dysfunction ( CKD stage IV) Signs/Symptoms as evidenced by BUN 81, Cr 2. 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 Lab / Micro Data Result Diagrams: 05/18/21 04:50 05/18/21 04:50 Labs: Laboratory Results - last 24 hr 05/17/21 09:57: Lactate Dehydrogenase 225, Total Protein 6.9, Globulin 4.8 H, Albumin/Globulin Ratio 0.4 L 05/17/21 09:57: Fluid Glucose 201 H, Fluid Total Protein 3.6, Fluid LDH 116 05/17/21 09:57: Fluid Source THORACENTESIS, Fluid Color YELLOW, Fluid Appearance CLEAR, Fluid WBC 0.244, Fluid RBC 785, Fluid Tot Cell Count 0.291 H, Fld Polynuclear WBCs # 0.031, Fld Polynuclear WBCs % 12.7, Fluid Mononuclear WBCs 0.213, Fld Mononuclear WBCs % 87.3, Fluid Neutrophils 17, Fluid Lymphocytes 53, Fluid Monocytes 12, Fluid Macrophages 1, Fld Mesothelial Cells 2, Fluid Other Cells 15, Fl Pathologist Comment May follow, Fluid Comment 2 SEE COMMENT 05/17/21 12:00: POC Glucose 223 H 05/17/21 13:30: APTT 40.0 H 05/17/21 16:20: POC Glucose 233 H 05/17/21 20:10: APTT 77.0 H 05/17/21 22:46: POC Glucose 223 H 05/18/21 04:50: WBC 10.3, RBC 3.43 L, Hgb 10.1 L, Hct 34.2 L, MCV 99.7 H, MCH 29.4, MCHC 29.5 L, RDW Std Deviation 55.3 H, RDW Coeff of Angelika 15.3 H, Plt Count 162, MPV 12.4 H, Immature Gran % (Auto) 0.800, Neut % (Auto) 78.8 H, Lymph % (Auto) 12.3 L, [place] % (Auto) 5.9, Eos % (Auto) 1.8, Baso % (Auto) 0.4, Absolute Neuts (auto) 8.1 H, Absolute Lymphs (auto) 1.27, Nucleated RBC % 0 05/18/21 04:50: Sodium 138, Potassium 3.8, Chloride 97 L, Carbon Dioxide 35.0 H, Anion Gap 6, BUN 85 H, Creatinine 2.88 H, Estim Creat Clear Calc 18.18, Est GFR (MDRD) Af Amer 21 L, Est GFR (MDRD) Non-Af 17 L, BUN/Creatinine Ratio 29.5 H, Glucose 264 H, Calcium 8.3 L 05/18/21 04:50: PT 17.0 H, INR 1.5, APTT 65.2 H Micro: Microbiology 05/17/21 09:57 Fluid - Thoracentesis Fluid Gram Stain - Final 05/16/21 09:49 Sputum, Induced/Lukens Gram Stain - Final 05/16/21 09:49 Sputum, Induced/Lukens Respiratory Culture - Preliminary Culture exhibits no growth. 05/11/21 15:37 Nasal Secretion SARS-CoV-2 Antigen (Rapid) - Final ABG Data ABG results: ABG 05/18/21 04:53 Specimen Type ART Sample Site R Radial pH 7.42 Bicarbonate Actual 34.1 H Total CO2 36 Base Excess 10 H O2 Saturation 80 L O2 % 100 ABG pCO2 52.7 H ABG pO2 45 L Saroj Test N/A Respiration Rate 12 O2 Delivery Device Adult Vent Vent Mode BiLevel Radiography Diagnostic Testing: Radiology Impression Thoracentesis Ultrasound 05/17/21 07:26 IMPRESSION: Ultrasound-guided left thoracentesis. Electronically Signed: Vaughn Atkins MD at 10:33 EDT , Service support , Chest X-Ray 05/17/21 10:09 IMPRESSION: Status post left thoracentesis. No evidence of pneumothorax. Electronically Signed: Vaughn Atkins MD at 10:46 EDT , Service support , Chest X-Ray 05/17/21 13:25 IMPRESSION: Stable bilateral pulmonary infiltrates. Electronically Signed: Vaughn Atkins MD at 14:21 EDT , Service support , Rhythm Strip Rhythm Strip: A-fib Rate: 95 Ectopy: PVC(s) Physical Exam Narrative GENERAL: On the vent HEENT: Atraumatic; EYES; Anicteric, Normal Conjunctiva NECK; supple, normal thyroid, RESPIRATORY: Diminished to auscultation CARDIOVASCULAR: Regular S1 S2, GI: soft, normoactive bowel sounds, : No Renal angle tenderness; EXTREMITIES: Bilateral edema MUSCULOSKELETAL: no muscle waisting NEURO: On the vent SKIN: No Rash Assessment & Plan Assessment/Plan (1) Acute and chronic respiratory failure with hypoxia: (2) Anasarca: (3) Chronic anemia: (4) CKD (chronic kidney disease) stage 3, GFR 30-59 ml/min: PLAN: Patient is a 70-year-old lady with multiple comorbidities including chronic kidney disease stage III chronic hypoxic respiratory failure secondary to obstructive sleep apnea admitted with progressive shortness of breath. 1. Acute on chronic hypoxic respiratory failure ?Multifactorial including cor pulmonale, obesity hypoventilation syndrome, CHF with bilateral pleural effusion. Patient was managed on noninvasive ventilation however clinical condition deteriorated. Had an extensive discussion with patient regarding patient's status which was changed to full code from DNR CCA no intubation. requested for all measures to be taking including intubation. Case discussed with Dr. Caldwell with pulmonary medicine patient transferred to ICU and subsequently intubated and placed on the vent ?05/17/2021. Patient remains on the vent vent management deferred to pulmonary medicine - Patient seen, remains on the vent. Patient apparently had a mucous plug which was suctioned out. Oxygen saturation remains relatively low (mid 70s to low 80s) despite being on optimal vent setting. Family to discuss possible terminal weaning 2. Acute congestive heart failure with preserved ejection fraction ?Echocardiogram on 03/31/2021 shows an EF of 55 to 60% a dilated RV, a dilated IVC and hepatic veins and a moderate sized LA thrombus. Patient managed with diuresis. Chest x-ray demonstrated pleural effusion plan also patient have undergone ultrasound-guided thoracocentesis which had to be postponed in view of her worsening respiratory status with subsequent intubation -05/17/2021;Patient seen remains sedated on the vent. Scheduled to undergo ultrasound guided thoracocentesis -05/18/2021; thoracocentesis obtained the day prior Wayne draining 100 mL of elpidio-colored fluid 3. Left atrial thrombus ?Patient was on systemic anticoagulation held placed on heparin. Heparin has since been resumed 4. Anasarca ?Attributed to patient fluid overload status from CHF 4. Chronic kidney disease stage IV ?Kidney function at baseline. Nephrology on consult?Dr. Lind 5. Obstructive sleep apnea ?Patient had been managed with BiPAP prior to her intubation 6. Paroxysmal atrial fibrillation ?Rate controlled on systemic anticoagulation 7. Diabetes mellitus type 2 ?Accu-Cheks every 6 with sliding scale coverage and long-acting insulin 8. Dyslipidemia ?Home medications continued 9. Essential hypertension ?Blood pressure stable did continue home medications 10. DVT prophylaxis ?On systemic anticoagulation 7. Moderate protein calorie malnutrition ?Dietitian on consult Charges/Coding Visit Charges Inpatient E&M: 10505 Subs Hosp L3
[2021-05-18] MEDS: Insulin Lispro 100 UNIT/ML INSULN.PEN SC (08:21)
[2021-05-18 08:25] LABS: Bedside Glucose 259 mg/dL (70-110)
--- NOTE | 2021-05-18 09:25 | PN.CC_ITS ---
Assessment & Plan Assessment/Plan (1) Acute and chronic respiratory failure with hypoxia: (2) Acute respiratory failure with hypoxia and hypercarbia: (3) DIEGO (obstructive sleep apnea): PLAN: RECOMMENDATIONS: 1. Proceed with terminal extubation per family wishes. 2. Premedication with IV morphine and Ativan, as ordered. 3. CODE STATUS updated to DNR comfort care. IMPRESSIONS: 1. Acute on chronic combined respiratory failure secondary to probable cor pulmonale Clinical suspicion for progression to cor pulmonale secondary to noncompliance with DIEGO and low-salt therapy. An underlying pulmonary infectious etiology is also a possibility. Despite attempts at aggressive diuresis, the patient remained on continuous noninvasive positive pressure ventilatory support and continued to decompensate from a respiratory perspective. Ultimately, she required transfer to the medical intensive care unit on April 26 and was intubated, after the patient's family revoked her DNR status and made her a full code. Despite ongoing attempts at further optimization including thoracentesis, the patient has remained hypoxemic despite being on maximal vent settings. Following a discussion with the patient's family, they have elected to proceed with terminal extubation and initiation of comfort care measures. 2. Encephalopathy Likely secondary to hypercapnia in the setting of #1 and alveolar hypoventilation due to obesity. The patient has failed to respond to AVAPS and was therefore intubated. 3. CKD stage IV secondary to DMII Clinical suspicion for progression of kidney disease secondary to prerenal etiology secondary to poor mechanics with volume overload. Will monitor cr eatinine as patient receives diuresis. Diuresis may lead to better Starling forces and better cardiac output. 4. Diabetes mellitus type 2/hypertension/paroxysmal A. fib/morbid obesity/poor follow-up/mural thrombus Complicates care, management, recovery and prognosis. Continue home medications as indicated. TIME: 34 minutes of critical care time, inclusive of procedures, was spent addressing the patient's acute on chronic combined respiratory failure, decompensated heart failure/cor pulmonale, encephalopathy, chronic kidney disease, review of all data and collaboration with care team. ([id number]) Subjective Subjective The patient was seen and examined at the bedside this morning. Events from the last 24 hours have been reviewed. The patient is currently afebrile, hemodynamically stable and maintaining appropriate oxygen saturations with an FiO2 requirement of 100%. Despite this, the patient remains hypoxemic. She is currently documented to be overall net -4 L for the hospital admission. Creatinine has again increased to 2.8. Although the patient's family presented to the ICU last evening, they were unable to reach a decision regarding goals of care. I personally met with the patient's family this morning at the bedside to discuss overall clinical status and goals of care. They have elected at this time to proceed with the initiation of comfort care measures and terminal extubation. Objective Data Objective Data The patient's most recent lab work, culture data and imaging studies have all been personally reviewed. Rapid coronavirus antigen testing was negative on May 11. Sputum and pleural fluid cultures are pending. Vital Signs: Vital Signs Temp Pulse Resp BP Pulse Ox 98.1 F 106 H 13 127/64 H 79 05/18/21 08:00 05/18/21 08:00 05/18/21 08:00 05/18/21 08:00 05/18/21 08:00 Oxygen Flow Rate (L/min) 15 Oxygen Delivery Method Mechanical Ventilator Weight: 162.5 kg Body Mass Index (BMI) 58.0 Intake & Output: Intake and Output for Last 24 Hours 05/16/21 05/17/21 05/18/21 23:59 23:59 23:59 Intake Total 1052.34 / 1084.14 2533.63 / 2548.13 379.62 / 379.62 Output Total 1425 / 2025 1180 / 1180 400 / 400 Balance -372.66 / -940.86 1353.63 / 1368.13 -20.38 / -20.38 Medical Nutrition Assessment Dietitian: Malnutrition Criteria Met Start: 05/16/21 11:07 Freq: Status: Active Protocol: Document 05/17/21 09:55 AG (Rec: 05/17/21 09:55 [id number]) Nutrition Malnutrition Evidence of Malnutrition Exists No Clinical Problem Acute Disease or Injury Related Malnutrition Etiology - Signs/Symptoms - Status Inactive Problem Altered Nutrient-Related Laboratory Values Etiology related to renal dysfunction ( CKD stage IV) Signs/Symptoms as evidenced by BUN 81, Cr 2. 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 Lab / Micro Data Attestation: I reviewed the patient's lab results. Result Diagrams: 05/18/21 04:50 05/18/21 04:50 Labs: Laboratory Results - last 24 hr 05/17/21 09:57: Lactate Dehydrogenase 225, Total Protein 6.9, Globulin 4.8 H, Albumin/Globulin Ratio 0.4 L 05/17/21 09:57: Fluid Glucose 201 H, Fluid Total Protein 3.6, Fluid LDH 116 05/17/21 09:57: Fluid Source THORACENTESIS, Fluid Color YELLOW, Fluid Appearance CLEAR, Fluid WBC 0.244, Fluid RBC 785, Fluid Tot Cell Count 0.291 H, Fld Polynuclear WBCs # 0.031, Fld Polynuclear WBCs % 12.7, Fluid Mononuclear WBCs 0.213, Fld Mononuclear WBCs % 87.3, Fluid Neutrophils 17, Fluid Lymphocytes 53, Fluid Monocytes 12, Fluid Macrophages 1, Fld Mesothelial Cells 2, Fluid Other Cells 15, Fl Pathologist Comment May follow, Fluid Comment 2 SEE COMMENT 05/17/21 12:00: POC Glucose 223 H 05/17/21 13:30: APTT 40.0 H 05/17/21 16:20: POC Glucose 233 H 05/17/21 20:10: APTT 77.0 H 05/17/21 22:46: POC Glucose 223 H 05/18/21 04:50: WBC 10.3, RBC 3.43 L, Hgb 10.1 L, Hct 34.2 L, MCV 99.7 H, MCH 29.4, MCHC 29.5 L, RDW Std Deviation 55.3 H, RDW Coeff of Angelika 15.3 H, Plt Count 162, MPV 12.4 H, Immature Gran % (Auto) 0.800, Neut % (Auto) 78.8 H, Lymph % (A uto) 12.3 L, [place] % (Auto) 5.9, Eos % (Auto) 1.8, Baso % (Auto) 0.4, Absolute Neuts (auto) 8.1 H, Absolute Lymphs (auto) 1.27, Nucleated RBC % 0 05/18/21 04:50: Sodium 138, Potassium 3.8, Chloride 97 L, Carbon Dioxide 35.0 H, Anion Gap 6, BUN 85 H, Creatinine 2.88 H, Estim Creat Clear Calc 18.18, Est GFR (MDRD) Af Amer 21 L, Est GFR (MDRD) Non-Af 17 L, BUN/Creatinine Ratio 29.5 H, Glucose 264 H, Calcium 8.3 L 05/18/21 04:50: PT 17.0 H, INR 1.5, APTT 65.2 H 05/18/21 08:20: POC Glucose 259 H Micro: Microbiology 05/17/21 09:57 Fluid - Thoracentesis Fluid Gram Stain - Final 05/16/21 09:49 Sputum, Induced/Lukens Gram Stain - Final 05/16/21 09:49 Sputum, Induced/Lukens Respiratory Culture - Preliminary Culture exhibits no growth. 05/11/21 15:37 Nasal Secretion SARS-CoV-2 Antigen (Rapid) - Final ABG Data ABG results: ABG 05/18/21 04:53 Specimen Type ART Sample Site R Radial pH 7.42 Bicarbonate Actual 34.1 H Total CO2 36 Base Excess 10 H O2 Saturation 80 L O2 % 100 ABG pCO2 52.7 H ABG pO2 45 L Saroj Test N/A Respiration Rate 12 O2 Delivery Device Adult Vent Vent Mode BiLevel Radiography Diagnostic Testing: Radiology Impression Thoracentesis Ultrasound 05/17/21 07:26 IMPRESSION: Ultrasound-guided left thoracentesis. Electronically Signed: Vaughn Atkins MD at 10:33 EDT , Service support , Chest X-Ray 05/17/21 10:09 IMPRESSION: Status post left thoracentesis. No evidence of pneumothorax. Electronically Signed: Vaughn Atkins MD at 10:46 EDT , Service support , Chest X-Ray 05/17/21 13:25 IMPRESSION: Stable bilateral pulmonary infiltrates. Electronically Signed: Vaughn Atkins MD at 14:21 EDT , Service support , Rhythm Strip Rhythm Strip: A-fib Rate: 95 Ectopy: PVC(s) Physical Exam Const no apparent distress General Appearance: ill appearing, intubated and patient mechanically ventilated Nutritional Appearance: morbidly obese HEENT normocephalic and head/scalp atraumatic Mouth: endotracheal tube in place and OG tube in place Eyes PERRL and EOMs intact bilaterally Neck supple General: trachea midline Resp Auscultation: rales and diminished lung sounds; Negative for rhonchi or wheezes Cardio regular rate and regular rhythm GI normal to inspection, nondistended, normoactive bowel sounds Extremity General Extremity: edema bilateral lower extremity; Negative for clubbing Skin no rashes or lesions noted Neuro no focal motor deficits Sensorium / Orientation: sedated on vent Charges/Coding Procedures Hospitalists Procedures: 43978 Critial Care 1st Hr
[2021-05-18] MEDS: Sertraline 50 MG Tablet GT (09:54)
[2021-05-18] MEDS: Gabapentin 600 MG Tablet GT (09:54)
[2021-05-18] MEDS: LINAGLIPTIN 5 MG TABLET GT (09:54)
[2021-05-18] MEDS: Nystatin Powder 15gm Bottle 1 APPLIC TOPICAL (09:54)
[2021-05-18] MEDS: Chlorhexidine 15 ML PO (09:55)
[2021-05-18] MEDS: CHLORHEXIDINE GLUC 2% CLOTH 1 EACH TOWELETTE TOPICAL (09:55)
[2021-05-18 12:36] LABS: Pathologist Comment/Body Fluid Reviewed
[2021-05-18] MEDS: Morphine 2 MG/ML Syringe IV (13:00)
[2021-05-18] MEDS: LORazepam 2 MG/ML Syringe IV (13:00)
--- NOTE | 2021-05-18 13:10 | CASEMGMT ---
Addendum entered by Kaitlin Low 05/18/21 13:15: Social Work Phone call to [place], where pt was residing prior to hospital admission, and notified of pt . ANALY Coffey Original Note: Social Work Pt condition declining. PT significant other Paras and pt luisat Meryl present with pt in room. SW present with family to offer emotional support for end of life care. ANALY Coffey
--- NOTE | 2021-05-18 13:41 | PCM.DEATH ---
Preliminary Cause of Preliminary Cause of Preliminary Cause of : Acute on chronic hypoxic respiratory failure secondary to cor pulmonale, obesity hypoventilation syndrome, CHF with preserved ejection fraction with bilateral pleural effusion Date of Admission: 05/11/21 Principle Diagnosis Problem List: Active and Suspected Problems (Updated 05/15/21 @ 18:[address] Ilene Lind, DO) Anasarca (Acute) Interstitial pneumonia (Acute) Hospital Course Patient is a 70-year-old lady with multiple comorbidities including chronic kidney disease stage III chronic hypoxic respiratory failure secondary to obstructive sleep apnea admitted with progressive shortness of breath. An assessment of Acute on chronic hypoxic respiratory failure ?Multifactorial including cor pulmonale, obesity hypoventilation syndrome, CHF with bilateral pleural effusion. Patient was managed on noninvasive ventilation however clinical condition deteriorated. Had an extensive discussion with patient regarding patient's status which was changed to full code from DNR CCA no intubation. requested for all measures to be taking including intubation. Case discussed with Dr. Caldwell with pulmonary medicine patient transferred to ICU and subsequently intubated and placed on the vent. Patient continued to deteriorate was being on the vent. Had subsequent discussion with the family patient CODE STATUS was changed to DNR CC. Patient was terminally weaned. She on 1322 on 05/18/2021 Visit Charges Inpatient E&M: 49551 Disch Hosp
--- NOTE | 2021-05-18 13:59 | CHAPLAIN ---
Type of Pastoral Visit ___ Initial Visit ___ Follow-up Visit ___ On-call Visit ___ General Patient Visit ___ Spiritual Assessment ___ Family Conference _x__ Bereavement ___ Rapid Response ___ Code Blue ___ Other (describe below) Pastoral Care Referral From ___ Patient ___ Family _x__ Nurse ___ Physician ___ Manager Corporate Responsibility ___ Newscast Producer ___ Other (describe below) Sacrament/Intervention _x__ Active listening ___ Anointing ___ Sikh _x__ Bereavement ___ Communion ___ Mariel exploration ___ _x__ Life review _x__ Prayer ___ Reconciliation ___ Sacrament of Sick _x__ Supportive presence ___ Wedding ___ Other (describe below) Pastoral Comments met with family members before extubation; time for reflection and assessment of spiritual needs; spouse and daughter given presence during extubation and following through until time of ; offer of ongoing support and presence; prayers; family is grieving appropriately
--- NOTE | 2021-05-18 14:08 | NURSING ---
Addendum entered by Marie Spangler 05/18/21 15:00: lasix: 0.2ml Original Note: patient received the following in the last hour of life (for [facility]) Ativan: 1 ml Propofol: 14.5ml Morphine: 2ml heparin: 12ml Zosyn: 12.5 ml Fentanyl: 7.5ml
--- NOTE | 2021-05-18 15:07 | NURSING ---
patient terminally weaned at 1305. comfort medications Ativan and morphine given. Family at bedside. Patient time of at 1322. No heart beat felt or heard, no breath sounds. Verified by this RN and Benita PENNINGTON.
== END 2021-05-18 14:50 | DRG 208 ==
LOC: ED 22:12 → PCU 22:34 → ICU 05-16 09:17
PROVIDERS: Hospitalist; Internal Medicine; Internal Medicine Critical Care Medicine; Admitting Provider Internal Medicine; Emergency Provider Emergency Medicine; PCP Nurse Practitioner Family; Visit Provider Internal Medicine
DX: J96.21 Acute and chronic respiratory failure with hypoxia (principal); I50.33 Acute on chronic diastolic (congestive) heart failure; J84.9 Interstitial pulmonary disease, unspecified; I13.0 Hypertensive heart and chronic kidney disease with heart failure and stage 1 through stage 4 chronic kidney disease, or unspecified chronic kidney disease; N18.4 Chronic kidney disease, stage 4 (severe); Z68.43 Body mass index [BMI] 50.0-59.9, adult; E66.2 Morbid (severe) obesity with alveolar hypoventilation; E87.2 Acidosis; E87.3 Alkalosis; J96.22 Acute and chronic respiratory failure with hypercapnia; I27.81 Cor pulmonale (chronic); I50.810 Right heart failure, unspecified; I51.3 Intracardiac thrombosis, not elsewhere classified; E11.22 Type 2 diabetes mellitus with diabetic chronic kidney disease; E11.42 Type 2 diabetes mellitus with diabetic polyneuropathy; R79.1 Abnormal coagulation profile; E87.5 Hyperkalemia; E87.6 Hypokalemia; T17.990A Other foreign object in respiratory tract, part unspecified in causing asphyxiation, initial encounter; X58.XXXA Exposure to other specified factors, initial encounter; Y93.9 Activity, unspecified; Y92.9 Unspecified place or not applicable; Y99.9 Unspecified external cause status; Z20.822 Contact with and (suspected) exposure to COVID-19; J44.9 Chronic obstructive pulmonary disease, unspecified; I48.0 Paroxysmal atrial fibrillation; I27.21 Secondary pulmonary arterial hypertension; E78.5 Hyperlipidemia, unspecified; M19.90 Unspecified osteoarthritis, unspecified site; F32.9 Major depressive disorder, single episode, unspecified; Z99.81 Dependence on supplemental oxygen; Z79.01 Long term (current) use of anticoagulants; Z79.4 Long term (current) use of insulin; Z79.899 Other long term (current) drug therapy; Z96.651 Presence of right artificial knee joint; Z91.19 Patient's noncompliance with other medical treatment and regimen
CPT/HCPCS: 31720; 32555; 36415; 36600; 71045; 71046; 71250; 80048; 80053; 81001; 82550; 82803; 82945; 82962; 83615; 83735; 83880; 84156; 84157; 84478; 84484; 85025; 85610; 85652; 85730; 86140; 86160; 86256; 86431; 86850; 86900; 86901; 87070; 87075; 87205; 87426; 87635; 87641; 88108; 88305; 88313; 88341; 88342; 89050; 93005; 94002; 94003; 94640; 97802; 99285; P9017; U0005; A4216; J1940; J2405; J3010; J3490; U0003